=== PATIENT | male | born 1955 | race Hispanic/Latino ===

== ENCOUNTER 2018-01-29 08:30 | Outpatient (CLI) | payer MEDICARE ==
[2018-01-29] MEDS ORDERED: THERMAZENE 50 GRAM TP ONE (09:01)
[2018-01-29] MEDS ORDERED: XYLOCAINE TOPICAL 4% TP ONE ×2 (09:01→09:04)
[2018-01-29] MEDS ORDERED: SILVER NITRATE TP ONE (09:35)
== END 2018-01-29 08:31 | disposition home or self-care (01) ==
LOC: WOUND 08:30
PROVIDERS: ATTEND Nurse Practitioner
DX: I70.234 Atherosclerosis of native arteries of right leg with ulceration of heel and midfoot (principal); L97.412 Non-pressure chronic ulcer of right heel and midfoot with fat layer exposed; L97.311 Non-pressure chronic ulcer of right ankle limited to breakdown of skin; L89.321 Pressure ulcer of left buttock, stage 1; L89.152 Pressure ulcer of sacral region, stage 2; E78.5 Hyperlipidemia, unspecified; I73.9 Peripheral vascular disease, unspecified; I10 Essential (primary) hypertension; F17.200 Nicotine dependence, unspecified, uncomplicated; Z86.73 Personal history of transient ischemic attack (TIA), and cerebral infarction without residual deficits; Z95.0 Presence of cardiac pacemaker; Z89.422 Acquired absence of other left toe(s)
CPT/HCPCS: 11042; G0463

== ENCOUNTER 2018-02-05 09:36 | Outpatient (CLI) | payer MEDICARE ==
[2018-02-05] MEDS ORDERED: XYLOCAINE TOPICAL 4% TP ONE (10:13)
[2018-02-05] MEDS ORDERED: SILVER NITRATE TP ONE ×4 (11:23→11:26)
== END 2018-02-05 09:37 | disposition home or self-care (01) ==
LOC: WOUND 09:36
PROVIDERS: ATTEND Nurse Practitioner
DX: I70.234 Atherosclerosis of native arteries of right leg with ulceration of heel and midfoot (principal); L97.412 Non-pressure chronic ulcer of right heel and midfoot with fat layer exposed; L97.311 Non-pressure chronic ulcer of right ankle limited to breakdown of skin; L89.322 Pressure ulcer of left buttock, stage 2; L89.152 Pressure ulcer of sacral region, stage 2; I87.2 Venous insufficiency (chronic) (peripheral); I10 Essential (primary) hypertension; I73.9 Peripheral vascular disease, unspecified; E78.5 Hyperlipidemia, unspecified; F17.200 Nicotine dependence, unspecified, uncomplicated; Z89.512 Acquired absence of left leg below knee; Z86.73 Personal history of transient ischemic attack (TIA), and cerebral infarction without residual deficits; Z95.0 Presence of cardiac pacemaker
CPT/HCPCS: 17250

== ENCOUNTER 2018-02-12 07:55 | Outpatient (CLI) | payer MEDICARE ==
[2018-02-12] MEDS ORDERED: XYLOCAINE TOPICAL 4% TP ONE (08:12)
== END 2018-02-12 07:56 | disposition home or self-care (01) ==
LOC: WOUND 07:55
PROVIDERS: ATTEND Nurse Practitioner
DX: I70.234 Atherosclerosis of native arteries of right leg with ulceration of heel and midfoot (principal); L97.412 Non-pressure chronic ulcer of right heel and midfoot with fat layer exposed; L97.311 Non-pressure chronic ulcer of right ankle limited to breakdown of skin; L89.322 Pressure ulcer of left buttock, stage 2; L89.152 Pressure ulcer of sacral region, stage 2; I87.2 Venous insufficiency (chronic) (peripheral); I10 Essential (primary) hypertension; E78.5 Hyperlipidemia, unspecified; F17.200 Nicotine dependence, unspecified, uncomplicated; Z89.512 Acquired absence of left leg below knee; Z86.73 Personal history of transient ischemic attack (TIA), and cerebral infarction without residual deficits; Z95.0 Presence of cardiac pacemaker

== ENCOUNTER 2018-02-19 08:36 | Outpatient (CLI) | payer MEDICARE ==
[2018-02-19] MEDS ORDERED: XYLOCAINE TOPICAL 4% TP ONE (08:50)
== END 2018-02-19 08:37 | disposition home or self-care (01) ==
LOC: WOUND 08:36
PROVIDERS: ATTEND Nurse Practitioner
DX: I70.234 Atherosclerosis of native arteries of right leg with ulceration of heel and midfoot (principal); L97.412 Non-pressure chronic ulcer of right heel and midfoot with fat layer exposed; L97.311 Non-pressure chronic ulcer of right ankle limited to breakdown of skin; L89.322 Pressure ulcer of left buttock, stage 2; L89.152 Pressure ulcer of sacral region, stage 2; I87.2 Venous insufficiency (chronic) (peripheral); I10 Essential (primary) hypertension; E78.5 Hyperlipidemia, unspecified; F17.200 Nicotine dependence, unspecified, uncomplicated; Z89.512 Acquired absence of left leg below knee; Z86.73 Personal history of transient ischemic attack (TIA), and cerebral infarction without residual deficits; Z95.0 Presence of cardiac pacemaker

== ENCOUNTER 2018-03-05 08:18 | Outpatient (CLI) | payer MEDICARE ==
[2018-03-05] MEDS ORDERED: XYLOCAINE TOPICAL 4% TP ONE ×2 (08:39→08:40)
[2018-03-05] MEDS ORDERED: SILVER NITRATE TP ONE ×2 (09:12→09:14)
== END 2018-03-05 08:19 | disposition home or self-care (01) ==
LOC: WOUND 08:18
PROVIDERS: ATTEND Nurse Practitioner
DX: I70.234 Atherosclerosis of native arteries of right leg with ulceration of heel and midfoot (principal); L97.412 Non-pressure chronic ulcer of right heel and midfoot with fat layer exposed; L89.152 Pressure ulcer of sacral region, stage 2; L97.311 Non-pressure chronic ulcer of right ankle limited to breakdown of skin; I10 Essential (primary) hypertension; I73.9 Peripheral vascular disease, unspecified; E78.5 Hyperlipidemia, unspecified; F17.200 Nicotine dependence, unspecified, uncomplicated; Z86.73 Personal history of transient ischemic attack (TIA), and cerebral infarction without residual deficits; Z89.512 Acquired absence of left leg below knee; Z95.0 Presence of cardiac pacemaker; Z89.429 Acquired absence of other toe(s), unspecified side
CPT/HCPCS: 17250

== ENCOUNTER 2018-03-12 08:06 | Outpatient (CLI) | payer MEDICARE ==
[2018-03-12] MEDS ORDERED: XYLOCAINE TOPICAL 4% TP ONE (08:26)
== END 2018-03-12 08:07 | disposition home or self-care (01) ==
LOC: WOUND 08:06
PROVIDERS: ATTEND Nurse Practitioner
DX: I70.234 Atherosclerosis of native arteries of right leg with ulceration of heel and midfoot (principal); L97.412 Non-pressure chronic ulcer of right heel and midfoot with fat layer exposed; L89.152 Pressure ulcer of sacral region, stage 2; L97.311 Non-pressure chronic ulcer of right ankle limited to breakdown of skin; L97.211 Non-pressure chronic ulcer of right calf limited to breakdown of skin; I10 Essential (primary) hypertension; I73.9 Peripheral vascular disease, unspecified; E78.5 Hyperlipidemia, unspecified; F17.200 Nicotine dependence, unspecified, uncomplicated; Z89.512 Acquired absence of left leg below knee; Z95.0 Presence of cardiac pacemaker; Z89.429 Acquired absence of other toe(s), unspecified side

== ENCOUNTER 2018-03-19 08:09 | Outpatient (CLI) | payer MEDICARE ==
[2018-03-19] MEDS ORDERED: XYLOCAINE TOPICAL 4% TP ONE ×2 (08:21→09:03)
== END 2018-03-19 08:10 | disposition home or self-care (01) ==
LOC: WOUND 08:09
PROVIDERS: ATTEND Surgery
DX: I70.234 Atherosclerosis of native arteries of right leg with ulceration of heel and midfoot (principal); L97.412 Non-pressure chronic ulcer of right heel and midfoot with fat layer exposed; L97.311 Non-pressure chronic ulcer of right ankle limited to breakdown of skin; L97.211 Non-pressure chronic ulcer of right calf limited to breakdown of skin; I10 Essential (primary) hypertension; E78.5 Hyperlipidemia, unspecified; F17.200 Nicotine dependence, unspecified, uncomplicated; Z89.512 Acquired absence of left leg below knee; Z95.0 Presence of cardiac pacemaker; Z89.429 Acquired absence of other toe(s), unspecified side

== ENCOUNTER 2018-03-26 08:39 | Outpatient (CLI) | payer MEDICARE ==
[2018-03-26] MEDS ORDERED: XYLOCAINE TOPICAL 4% TP ONE ×2 (09:04→10:01)
[2018-03-26] MEDS ORDERED: SILVER NITRATE TP ONE ×2 (09:35→16:06)
== END 2018-03-26 08:40 | disposition home or self-care (01) ==
LOC: WOUND 08:39
PROVIDERS: ATTEND Nurse Practitioner
DX: I70.234 Atherosclerosis of native arteries of right leg with ulceration of heel and midfoot (principal); L97.412 Non-pressure chronic ulcer of right heel and midfoot with fat layer exposed; L97.311 Non-pressure chronic ulcer of right ankle limited to breakdown of skin; L89.152 Pressure ulcer of sacral region, stage 2; S81.801D Unspecified open wound, right lower leg, subsequent encounter; I10 Essential (primary) hypertension; E78.5 Hyperlipidemia, unspecified; F17.200 Nicotine dependence, unspecified, uncomplicated; Z89.512 Acquired absence of left leg below knee; Z95.0 Presence of cardiac pacemaker; Z89.429 Acquired absence of other toe(s), unspecified side; X58.XXXD Exposure to other specified factors, subsequent encounter
CPT/HCPCS: 17250; 87075; 87116

== ENCOUNTER 2018-04-02 08:03 | Outpatient (CLI) | payer MEDICARE ==
[2018-04-02] MEDS ORDERED: XYLOCAINE TOPICAL 4% TP ONE ×2 (08:25)
== END 2018-04-02 08:04 | disposition home or self-care (01) ==
LOC: WOUND 08:03
PROVIDERS: ATTEND Surgery
DX: I70.234 Atherosclerosis of native arteries of right leg with ulceration of heel and midfoot (principal); L97.412 Non-pressure chronic ulcer of right heel and midfoot with fat layer exposed; L97.311 Non-pressure chronic ulcer of right ankle limited to breakdown of skin; L98.491 Non-pressure chronic ulcer of skin of other sites limited to breakdown of skin; L89.152 Pressure ulcer of sacral region, stage 2; R23.8 Other skin changes; I87.2 Venous insufficiency (chronic) (peripheral); I10 Essential (primary) hypertension; I73.9 Peripheral vascular disease, unspecified; F17.200 Nicotine dependence, unspecified, uncomplicated; E78.5 Hyperlipidemia, unspecified; Z86.73 Personal history of transient ischemic attack (TIA), and cerebral infarction without residual deficits; Z89.512 Acquired absence of left leg below knee; Z95.0 Presence of cardiac pacemaker; Z89.429 Acquired absence of other toe(s), unspecified side

== ENCOUNTER 2018-04-09 08:33 | Outpatient (CLI) | payer MEDICARE ==
[2018-04-09] MEDS ORDERED: XYLOCAINE TOPICAL 4% TP ONE (09:37)
== END 2018-04-09 08:34 | disposition home or self-care (01) ==
LOC: WOUND 08:33
PROVIDERS: ATTEND Surgery
DX: I70.234 Atherosclerosis of native arteries of right leg with ulceration of heel and midfoot (principal); L89.152 Pressure ulcer of sacral region, stage 2; L97.311 Non-pressure chronic ulcer of right ankle limited to breakdown of skin; L97.412 Non-pressure chronic ulcer of right heel and midfoot with fat layer exposed; R23.8 Other skin changes; I87.2 Venous insufficiency (chronic) (peripheral); I73.9 Peripheral vascular disease, unspecified; E78.5 Hyperlipidemia, unspecified; F17.200 Nicotine dependence, unspecified, uncomplicated; Z89.512 Acquired absence of left leg below knee; Z86.73 Personal history of transient ischemic attack (TIA), and cerebral infarction without residual deficits; Z95.0 Presence of cardiac pacemaker; Z89.429 Acquired absence of other toe(s), unspecified side

== ENCOUNTER 2018-04-16 08:34 | Outpatient (CLI) | payer MEDICARE ==
[2018-04-16] MEDS ORDERED: XYLOCAINE TOPICAL 4% TP ONE ×2 (08:55→09:25)
== END 2018-04-16 08:35 | disposition home or self-care (01) ==
LOC: WOUND 08:34
PROVIDERS: ATTEND Surgery
DX: I70.234 Atherosclerosis of native arteries of right leg with ulceration of heel and midfoot (principal); L97.311 Non-pressure chronic ulcer of right ankle limited to breakdown of skin; L97.412 Non-pressure chronic ulcer of right heel and midfoot with fat layer exposed; L89.152 Pressure ulcer of sacral region, stage 2; I87.2 Venous insufficiency (chronic) (peripheral); E78.5 Hyperlipidemia, unspecified; R23.8 Other skin changes; F17.200 Nicotine dependence, unspecified, uncomplicated; Z89.512 Acquired absence of left leg below knee; Z86.73 Personal history of transient ischemic attack (TIA), and cerebral infarction without residual deficits; Z95.0 Presence of cardiac pacemaker; Z89.429 Acquired absence of other toe(s), unspecified side

== ENCOUNTER 2018-04-23 08:03 | Outpatient (CLI) | payer MEDICARE ==
[2018-04-23] MEDS ORDERED: XYLOCAINE TOPICAL 4% TP ONE ×2 (08:15→08:40)
== END 2018-04-23 08:04 | disposition home or self-care (01) ==
LOC: WOUND 08:03
PROVIDERS: ATTEND Surgery
DX: I70.234 Atherosclerosis of native arteries of right leg with ulceration of heel and midfoot (principal); L97.412 Non-pressure chronic ulcer of right heel and midfoot with fat layer exposed; L97.311 Non-pressure chronic ulcer of right ankle limited to breakdown of skin; L89.329 Pressure ulcer of left buttock, unspecified stage; I10 Essential (primary) hypertension; I87.2 Venous insufficiency (chronic) (peripheral); I73.9 Peripheral vascular disease, unspecified; E78.5 Hyperlipidemia, unspecified; F17.200 Nicotine dependence, unspecified, uncomplicated; Z89.512 Acquired absence of left leg below knee; Z95.0 Presence of cardiac pacemaker; Z89.429 Acquired absence of other toe(s), unspecified side; Z86.73 Personal history of transient ischemic attack (TIA), and cerebral infarction without residual deficits

== ENCOUNTER 2018-05-07 08:23 | Outpatient (CLI) | payer MEDICARE ==
[2018-05-07] MEDS ORDERED: XYLOCAINE TOPICAL 4% TP ONE ×2 (08:28→09:38)
== END 2018-05-07 08:24 | disposition home or self-care (01) ==
LOC: WOUND 08:23
PROVIDERS: ATTEND Surgery
DX: I70.234 Atherosclerosis of native arteries of right leg with ulceration of heel and midfoot (principal); L97.412 Non-pressure chronic ulcer of right heel and midfoot with fat layer exposed; L97.311 Non-pressure chronic ulcer of right ankle limited to breakdown of skin; L89.329 Pressure ulcer of left buttock, unspecified stage; I10 Essential (primary) hypertension; I87.2 Venous insufficiency (chronic) (peripheral); I73.9 Peripheral vascular disease, unspecified; E78.5 Hyperlipidemia, unspecified; F17.200 Nicotine dependence, unspecified, uncomplicated; Z89.512 Acquired absence of left leg below knee; Z95.0 Presence of cardiac pacemaker; Z89.429 Acquired absence of other toe(s), unspecified side; Z86.73 Personal history of transient ischemic attack (TIA), and cerebral infarction without residual deficits
CPT/HCPCS: 97597

== ENCOUNTER 2018-05-14 08:35 | Outpatient (CLI) | payer MEDICARE ==
[2018-05-14] MEDS ORDERED: XYLOCAINE TOPICAL 4% TP ONE ×2 (08:40→09:00)
[2018-05-14] MEDS ORDERED: THERMAZENE 50 GRAM TP ONE (09:14)
[2018-05-14] MEDS ORDERED: THERMAZENE 50 GRAM TP SCH (10:00)
== END 2018-05-14 08:36 | disposition home or self-care (01) ==
LOC: WOUND 08:35
PROVIDERS: ATTEND Surgery
DX: I70.234 Atherosclerosis of native arteries of right leg with ulceration of heel and midfoot (principal); L97.412 Non-pressure chronic ulcer of right heel and midfoot with fat layer exposed; L89.309 Pressure ulcer of unspecified buttock, unspecified stage; I10 Essential (primary) hypertension; I73.9 Peripheral vascular disease, unspecified; E78.5 Hyperlipidemia, unspecified; F17.200 Nicotine dependence, unspecified, uncomplicated; Z86.73 Personal history of transient ischemic attack (TIA), and cerebral infarction without residual deficits; Z89.512 Acquired absence of left leg below knee; Z95.0 Presence of cardiac pacemaker; Z89.429 Acquired absence of other toe(s), unspecified side

== ENCOUNTER 2018-05-21 08:07 | Outpatient (CLI) | payer MEDICARE ==
[2018-05-21] MEDS ORDERED: XYLOCAINE TOPICAL 4% TP ONE ×2 (08:08→08:47)
[2018-05-21] MEDS ORDERED: SODIUM CHLORIDE FLUSH SYRINGE 10 ML IV ONE (08:55)
[2018-05-21] MEDS ORDERED: AD OINTMENT TP ONE (08:59)
[2018-05-21] MEDS ORDERED: THERMAZENE 50 GRAM TP ONE (09:00)
[2018-05-21] MEDS ORDERED: AD OINTMENT TP PRN (10:18)
[2018-05-21] MEDS ORDERED: THERMAZENE 50 GRAM TP SCH (11:00)
== END 2018-05-21 08:08 | disposition home or self-care (01) ==
LOC: WOUND 08:07
PROVIDERS: ATTEND Surgery
DX: I70.234 Atherosclerosis of native arteries of right leg with ulceration of heel and midfoot (principal); L97.412 Non-pressure chronic ulcer of right heel and midfoot with fat layer exposed; L97.312 Non-pressure chronic ulcer of right ankle with fat layer exposed; I87.2 Venous insufficiency (chronic) (peripheral); I10 Essential (primary) hypertension; I73.9 Peripheral vascular disease, unspecified; E78.5 Hyperlipidemia, unspecified; F17.200 Nicotine dependence, unspecified, uncomplicated; Z86.73 Personal history of transient ischemic attack (TIA), and cerebral infarction without residual deficits; Z89.512 Acquired absence of left leg below knee; Z95.0 Presence of cardiac pacemaker; Z89.429 Acquired absence of other toe(s), unspecified side
CPT/HCPCS: 11042; 15271; 29581; Q4158; 15275; A6250

== ENCOUNTER 2018-05-28 08:03 | Outpatient (CLI) | payer MEDICARE ==
[2018-05-28] MEDS ORDERED: XYLOCAINE TOPICAL 4% TP ONE ×2 (08:21→08:54)
[2018-05-28] MEDS ORDERED: THERMAZENE 50 GRAM TP ONE (09:21)
[2018-05-29] MEDS ORDERED: THERMAZENE 50 GRAM TP SCH (22:00)
== END 2018-05-28 08:04 | disposition home or self-care (01) ==
LOC: WOUND 08:03
PROVIDERS: ATTEND Surgery
DX: I70.234 Atherosclerosis of native arteries of right leg with ulceration of heel and midfoot (principal); L97.412 Non-pressure chronic ulcer of right heel and midfoot with fat layer exposed; L97.312 Non-pressure chronic ulcer of right ankle with fat layer exposed; I87.2 Venous insufficiency (chronic) (peripheral); I10 Essential (primary) hypertension; I73.9 Peripheral vascular disease, unspecified; E78.5 Hyperlipidemia, unspecified; F17.200 Nicotine dependence, unspecified, uncomplicated; Z86.73 Personal history of transient ischemic attack (TIA), and cerebral infarction without residual deficits; Z89.512 Acquired absence of left leg below knee; Z95.0 Presence of cardiac pacemaker; Z89.429 Acquired absence of other toe(s), unspecified side

== ENCOUNTER 2018-06-04 08:10 | Outpatient (CLI) | payer MEDICARE ==
[2018-06-04] MEDS ORDERED: XYLOCAINE TOPICAL 4% TP ONE ×2 (08:14→11:42)
[2018-06-04] MEDS ORDERED: SODIUM CHLORIDE FLUSH SYRINGE 10 ML IV ONE (09:16)
[2018-06-04] MEDS ORDERED: THERMAZENE 50 GRAM TP ONE (09:42)
[2018-06-04] MEDS ORDERED: THERMAZENE 50 GRAM TP SCH (12:00)
[2018-06-05] MEDS ORDERED: SODIUM CHLORIDE FLUSH SYRINGE 10 ML IV ONE (17:05)
[2018-06-06] MEDS ORDERED: THERMAZENE 50 GRAM TP SCH (10:00)
== END 2018-06-04 08:11 | disposition home or self-care (01) ==
LOC: WOUND 08:10
PROVIDERS: ATTEND Surgery
DX: I70.234 Atherosclerosis of native arteries of right leg with ulceration of heel and midfoot (principal); L97.412 Non-pressure chronic ulcer of right heel and midfoot with fat layer exposed; L97.312 Non-pressure chronic ulcer of right ankle with fat layer exposed; L89.152 Pressure ulcer of sacral region, stage 2; S31.829D Unspecified open wound of left buttock, subsequent encounter; S31.819D Unspecified open wound of right buttock, subsequent encounter; I87.2 Venous insufficiency (chronic) (peripheral); R23.8 Other skin changes; I10 Essential (primary) hypertension; I73.9 Peripheral vascular disease, unspecified; E78.5 Hyperlipidemia, unspecified; F17.200 Nicotine dependence, unspecified, uncomplicated; Z89.512 Acquired absence of left leg below knee; Z86.73 Personal history of transient ischemic attack (TIA), and cerebral infarction without residual deficits; Z95.0 Presence of cardiac pacemaker; X58.XXXD Exposure to other specified factors, subsequent encounter
CPT/HCPCS: 11042; 15271; Q4158; 15275

== ENCOUNTER 2018-06-11 08:03 | Outpatient (CLI) | payer MEDICARE ==
[2018-06-11] MEDS ORDERED: XYLOCAINE TOPICAL 4% TP ONE ×2 (08:07→08:46)
[2018-06-11] MEDS ORDERED: THERMAZENE 50 GRAM TP ONE (08:49)
[2018-06-11] MEDS ORDERED: SODIUM CHLORIDE FLUSH SYRINGE 10 ML IV ONE (08:49)
[2018-06-11] MEDS ORDERED: THERMAZENE 50 GRAM TP SCH (10:00)
== END 2018-06-11 08:04 | disposition home or self-care (01) ==
LOC: WOUND 08:03
PROVIDERS: ATTEND Surgery
DX: I70.234 Atherosclerosis of native arteries of right leg with ulceration of heel and midfoot (principal); L97.412 Non-pressure chronic ulcer of right heel and midfoot with fat layer exposed; L97.312 Non-pressure chronic ulcer of right ankle with fat layer exposed; L89.152 Pressure ulcer of sacral region, stage 2; S31.829D Unspecified open wound of left buttock, subsequent encounter; S31.819D Unspecified open wound of right buttock, subsequent encounter; I87.2 Venous insufficiency (chronic) (peripheral); R23.8 Other skin changes; I10 Essential (primary) hypertension; I73.9 Peripheral vascular disease, unspecified; E78.5 Hyperlipidemia, unspecified; F17.200 Nicotine dependence, unspecified, uncomplicated; Z89.512 Acquired absence of left leg below knee; Z86.73 Personal history of transient ischemic attack (TIA), and cerebral infarction without residual deficits; Z95.0 Presence of cardiac pacemaker; X58.XXXD Exposure to other specified factors, subsequent encounter

== ENCOUNTER 2018-06-25 08:04 | Outpatient (CLI) | payer MEDICARE ==
[~2018-06-25 08:04] MED LIST: THERMAZENE 50 GRAM TP ONE; XYLOCAINE TOPICAL 4% TP ONE
[2018-06-25] MEDS ORDERED: XYLOCAINE TOPICAL 4% TP ONE (10:16)
[2018-06-25] MEDS ORDERED: THERMAZENE 50 GRAM TP SCH (22:00)
== END 2018-06-25 08:05 | disposition home or self-care (01) ==
LOC: WOUND 08:04
PROVIDERS: ATTEND Surgery
DX: I70.234 Atherosclerosis of native arteries of right leg with ulceration of heel and midfoot (principal); L97.412 Non-pressure chronic ulcer of right heel and midfoot with fat layer exposed; L97.312 Non-pressure chronic ulcer of right ankle with fat layer exposed; L89.152 Pressure ulcer of sacral region, stage 2; S31.829D Unspecified open wound of left buttock, subsequent encounter; S31.819D Unspecified open wound of right buttock, subsequent encounter; I87.2 Venous insufficiency (chronic) (peripheral); R23.8 Other skin changes; I10 Essential (primary) hypertension; I73.9 Peripheral vascular disease, unspecified; E78.5 Hyperlipidemia, unspecified; F17.200 Nicotine dependence, unspecified, uncomplicated; Z89.512 Acquired absence of left leg below knee; Z86.73 Personal history of transient ischemic attack (TIA), and cerebral infarction without residual deficits; Z95.0 Presence of cardiac pacemaker; X58.XXXD Exposure to other specified factors, subsequent encounter
CPT/HCPCS: 29580

== ENCOUNTER 2018-07-02 08:02 | Outpatient (CLI) | payer MEDICARE ==
[2018-07-02] MEDS ORDERED: XYLOCAINE TOPICAL 4% TP ONE ×2 (08:08→09:39)
[2018-07-02] MEDS ORDERED: SODIUM CHLORIDE FLUSH SYRINGE 10 ML IV ONE (08:46)
[2018-07-02] MEDS ORDERED: THERMAZENE 50 GRAM TP ONE (08:47)
[2018-07-02] MEDS ORDERED: THERMAZENE 50 GRAM TP SCH (10:00)
[2018-07-02] MEDS ORDERED: SODIUM CHLORIDE FLUSH SYRINGE 10 ML IV SCH (10:00)
== END 2018-07-02 08:03 | disposition home or self-care (01) ==
LOC: WOUND 08:02
PROVIDERS: ATTEND Surgery
DX: I70.234 Atherosclerosis of native arteries of right leg with ulceration of heel and midfoot (principal); L97.412 Non-pressure chronic ulcer of right heel and midfoot with fat layer exposed; L97.312 Non-pressure chronic ulcer of right ankle with fat layer exposed; S31.829D Unspecified open wound of left buttock, subsequent encounter; S31.819D Unspecified open wound of right buttock, subsequent encounter; I87.2 Venous insufficiency (chronic) (peripheral); R23.8 Other skin changes; I10 Essential (primary) hypertension; I73.9 Peripheral vascular disease, unspecified; E78.5 Hyperlipidemia, unspecified; F17.200 Nicotine dependence, unspecified, uncomplicated; Z89.512 Acquired absence of left leg below knee; Z86.73 Personal history of transient ischemic attack (TIA), and cerebral infarction without residual deficits; Z95.0 Presence of cardiac pacemaker; X58.XXXD Exposure to other specified factors, subsequent encounter
CPT/HCPCS: 15271; Q4158

== ENCOUNTER 2018-08-06 08:11 | Outpatient (CLI) | payer MEDICARE ==
[~2018-08-06 08:11] MED LIST changes: +SODIUM CHLORIDE FLUSH SYRINGE 10 ML IV ONE; -THERMAZENE 50 GRAM TP ONE
[2018-08-06] MEDS ORDERED: XYLOCAINE TOPICAL 4% TP ONE (08:18)
[2018-08-06] MEDS ORDERED: SODIUM CHLORIDE FLUSH SYRINGE 10 ML IV ONE (14:21)
== END 2018-08-06 08:12 | disposition home or self-care (01) ==
LOC: WOUND 08:11
PROVIDERS: ATTEND Surgery
DX: I70.234 Atherosclerosis of native arteries of right leg with ulceration of heel and midfoot (principal); L97.312 Non-pressure chronic ulcer of right ankle with fat layer exposed; L97.412 Non-pressure chronic ulcer of right heel and midfoot with fat layer exposed; S31.829D Unspecified open wound of left buttock, subsequent encounter; S31.819D Unspecified open wound of right buttock, subsequent encounter; I87.2 Venous insufficiency (chronic) (peripheral); R23.8 Other skin changes; I10 Essential (primary) hypertension; I73.9 Peripheral vascular disease, unspecified; E78.5 Hyperlipidemia, unspecified; F17.200 Nicotine dependence, unspecified, uncomplicated; Z89.512 Acquired absence of left leg below knee; Z86.73 Personal history of transient ischemic attack (TIA), and cerebral infarction without residual deficits; Z95.0 Presence of cardiac pacemaker; X58.XXXD Exposure to other specified factors, subsequent encounter
CPT/HCPCS: 15271; 15272; 29580; Q4158

== ENCOUNTER 2018-08-27 08:00 | Outpatient (CLI) | payer MEDICARE ==
[2018-08-27] MEDS ORDERED: XYLOCAINE TOPICAL 4% TP ONE ×2 (08:11→15:19)
[2018-08-27] MEDS ORDERED: SODIUM CHLORIDE FLUSH SYRINGE 10 ML IV ONE ×2 (08:14→15:19)
== END 2018-08-27 08:01 | disposition home or self-care (01) ==
LOC: WOUND 08:00
PROVIDERS: ATTEND Surgery
DX: I70.235 Atherosclerosis of native arteries of right leg with ulceration of other part of foot (principal); L97.312 Non-pressure chronic ulcer of right ankle with fat layer exposed; L97.412 Non-pressure chronic ulcer of right heel and midfoot with fat layer exposed; S31.829D Unspecified open wound of left buttock, subsequent encounter; S31.819D Unspecified open wound of right buttock, subsequent encounter; I87.2 Venous insufficiency (chronic) (peripheral); R23.8 Other skin changes; I10 Essential (primary) hypertension; I73.9 Peripheral vascular disease, unspecified; E78.5 Hyperlipidemia, unspecified; F17.200 Nicotine dependence, unspecified, uncomplicated; Z89.512 Acquired absence of left leg below knee; Z86.73 Personal history of transient ischemic attack (TIA), and cerebral infarction without residual deficits; Z95.0 Presence of cardiac pacemaker; X58.XXXD Exposure to other specified factors, subsequent encounter
CPT/HCPCS: 15275; Q4158

== ENCOUNTER 2018-10-28 08:07 | Outpatient (CLI) | payer MEDICARE ==
[2018-10-28] MEDS ORDERED: XYLOCAINE TOPICAL 4% TP ONE (08:08)
== END 2018-10-28 08:08 | disposition home or self-care (01) ==
LOC: WOUND 08:07
PROVIDERS: ATTEND Surgery
DX: I70.234 Atherosclerosis of native arteries of right leg with ulceration of heel and midfoot (principal); L97.412 Non-pressure chronic ulcer of right heel and midfoot with fat layer exposed; L89.891 Pressure ulcer of other site, stage 1; L97.311 Non-pressure chronic ulcer of right ankle limited to breakdown of skin; L89.152 Pressure ulcer of sacral region, stage 2; I10 Essential (primary) hypertension; E78.5 Hyperlipidemia, unspecified; Z86.73 Personal history of transient ischemic attack (TIA), and cerebral infarction without residual deficits; F17.200 Nicotine dependence, unspecified, uncomplicated
CPT/HCPCS: 29580

== ENCOUNTER 2018-11-18 07:59 | Outpatient (CLI) | payer MEDICARE ==
[2018-11-18] MEDS ORDERED: XYLOCAINE TOPICAL 4% TP ONE (08:07)
== END 2018-11-18 08:00 | disposition home or self-care (01) ==
LOC: WOUND 07:59
PROVIDERS: ATTEND Surgery
DX: I70.234 Atherosclerosis of native arteries of right leg with ulceration of heel and midfoot (principal); L89.152 Pressure ulcer of sacral region, stage 2; L97.412 Non-pressure chronic ulcer of right heel and midfoot with fat layer exposed; L89.891 Pressure ulcer of other site, stage 1; L97.811 Non-pressure chronic ulcer of other part of right lower leg limited to breakdown of skin; I10 Essential (primary) hypertension; E78.5 Hyperlipidemia, unspecified; F17.200 Nicotine dependence, unspecified, uncomplicated; Z86.73 Personal history of transient ischemic attack (TIA), and cerebral infarction without residual deficits
CPT/HCPCS: 29580

== ENCOUNTER 2018-11-25 07:53 | Outpatient (CLI) | payer MEDICARE ==
[2018-11-25] MEDS ORDERED: XYLOCAINE TOPICAL 4% TP ONE (07:59)
== END 2018-11-25 07:54 | disposition home or self-care (01) ==
LOC: WOUND 07:53
PROVIDERS: ATTEND Surgery
DX: I70.234 Atherosclerosis of native arteries of right leg with ulceration of heel and midfoot (principal); L89.891 Pressure ulcer of other site, stage 1; L97.412 Non-pressure chronic ulcer of right heel and midfoot with fat layer exposed; L97.312 Non-pressure chronic ulcer of right ankle with fat layer exposed; L97.811 Non-pressure chronic ulcer of other part of right lower leg limited to breakdown of skin; L89.152 Pressure ulcer of sacral region, stage 2; I87.8 Other specified disorders of veins; I10 Essential (primary) hypertension; E78.5 Hyperlipidemia, unspecified; Z86.73 Personal history of transient ischemic attack (TIA), and cerebral infarction without residual deficits
CPT/HCPCS: 29580

== ENCOUNTER 2018-12-02 07:52 | Outpatient (CLI) | payer MEDICARE ==
[2018-12-02] MEDS ORDERED: XYLOCAINE TOPICAL 2% 30ML TP ONE (07:58)
== END 2018-12-02 07:53 | disposition home or self-care (01) ==
LOC: WOUND 07:52
PROVIDERS: ATTEND Surgery
DX: I70.234 Atherosclerosis of native arteries of right leg with ulceration of heel and midfoot (principal); L89.891 Pressure ulcer of other site, stage 1; L97.412 Non-pressure chronic ulcer of right heel and midfoot with fat layer exposed; L89.152 Pressure ulcer of sacral region, stage 2; L97.312 Non-pressure chronic ulcer of right ankle with fat layer exposed; L97.811 Non-pressure chronic ulcer of other part of right lower leg limited to breakdown of skin; I87.8 Other specified disorders of veins; I10 Essential (primary) hypertension; E78.5 Hyperlipidemia, unspecified; Z86.73 Personal history of transient ischemic attack (TIA), and cerebral infarction without residual deficits; F17.200 Nicotine dependence, unspecified, uncomplicated
CPT/HCPCS: 29580

== ENCOUNTER 2018-12-09 07:50 | Outpatient (CLI) | payer MEDICARE ==
[2018-12-09] MEDS ORDERED: XYLOCAINE TOPICAL 4% TP ONE (08:03)
[2018-12-09] MEDS ORDERED: SILVER NITRATE TP ONE (08:04)
== END 2018-12-09 07:51 | disposition home or self-care (01) ==
LOC: WOUND 07:50
PROVIDERS: ATTEND Surgery
DX: I70.234 Atherosclerosis of native arteries of right leg with ulceration of heel and midfoot (principal); L89.891 Pressure ulcer of other site, stage 1; L89.152 Pressure ulcer of sacral region, stage 2; L97.312 Non-pressure chronic ulcer of right ankle with fat layer exposed; L97.812 Non-pressure chronic ulcer of other part of right lower leg with fat layer exposed; I87.8 Other specified disorders of veins; I10 Essential (primary) hypertension; E78.5 Hyperlipidemia, unspecified; F17.200 Nicotine dependence, unspecified, uncomplicated; Z86.73 Personal history of transient ischemic attack (TIA), and cerebral infarction without residual deficits

== ENCOUNTER 2018-12-16 08:12 | Outpatient (CLI) | payer MEDICARE | END 2018-12-16 08:13 | disposition home or self-care (01) | LOC: WOUND 08:12 | CPT/HCPCS: 29580 ==

== ENCOUNTER 2018-12-30 08:05 | Outpatient (CLI) | payer MEDICARE ==
[2018-12-30] MEDS ORDERED: XYLOCAINE TOPICAL 2% 30ML TP ONE (08:06)
[2018-12-30] MEDS ORDERED: SILVER NITRATE TP ONE (08:06)
== END 2018-12-30 08:06 | disposition home or self-care (01) ==
LOC: WOUND 08:05
PROVIDERS: ATTEND Surgery
DX: I70.234 Atherosclerosis of native arteries of right leg with ulceration of heel and midfoot (principal); L97.412 Non-pressure chronic ulcer of right heel and midfoot with fat layer exposed; L89.891 Pressure ulcer of other site, stage 1; L89.152 Pressure ulcer of sacral region, stage 2; L97.312 Non-pressure chronic ulcer of right ankle with fat layer exposed; L84 Corns and callosities; I10 Essential (primary) hypertension; E78.5 Hyperlipidemia, unspecified; Z86.73 Personal history of transient ischemic attack (TIA), and cerebral infarction without residual deficits; F17.200 Nicotine dependence, unspecified, uncomplicated
CPT/HCPCS: 29580

== ENCOUNTER 2019-01-06 08:14 | Outpatient (CLI) | payer MEDICARE ==
[2019-01-06] MEDS ORDERED: SILVER NITRATE TP ONE (08:16)
[2019-01-06] MEDS ORDERED: XYLOCAINE TOPICAL 4% TP ONE (08:16)
[2019-01-06] MEDS ORDERED: AD OINTMENT TP PRN (08:17)
== END 2019-01-06 08:15 | disposition home or self-care (01) ==
LOC: WOUND 08:14
PROVIDERS: ATTEND Surgery
DX: I70.234 Atherosclerosis of native arteries of right leg with ulceration of heel and midfoot (principal); L97.412 Non-pressure chronic ulcer of right heel and midfoot with fat layer exposed; L89.891 Pressure ulcer of other site, stage 1; L89.152 Pressure ulcer of sacral region, stage 2; L97.312 Non-pressure chronic ulcer of right ankle with fat layer exposed; L84 Corns and callosities; I10 Essential (primary) hypertension; E78.5 Hyperlipidemia, unspecified; F17.200 Nicotine dependence, unspecified, uncomplicated; Z86.73 Personal history of transient ischemic attack (TIA), and cerebral infarction without residual deficits

== ENCOUNTER 2019-01-13 07:59 | Outpatient (CLI) | payer MEDICARE ==
[2019-01-13] MEDS ORDERED: XYLOCAINE TOPICAL 4% TP ONE (09:00)
[2019-01-13] MEDS ORDERED: SILVER NITRATE TP ONE (09:00)
== END 2019-01-13 08:00 | disposition home or self-care (01) ==
LOC: WOUND 07:59
PROVIDERS: ATTEND Surgery
DX: I70.233 Atherosclerosis of native arteries of right leg with ulceration of ankle (principal); L97.312 Non-pressure chronic ulcer of right ankle with fat layer exposed; L89.152 Pressure ulcer of sacral region, stage 2; I10 Essential (primary) hypertension; E78.5 Hyperlipidemia, unspecified; F17.200 Nicotine dependence, unspecified, uncomplicated; Z86.73 Personal history of transient ischemic attack (TIA), and cerebral infarction without residual deficits
CPT/HCPCS: 29581

== ENCOUNTER 2019-01-20 07:54 | Outpatient (CLI) | payer MEDICARE | END 2019-01-20 07:55 | disposition home or self-care (01) | LOC: WOUND 07:54 ==

== ENCOUNTER 2019-01-27 08:02 | Outpatient (CLI) | payer MEDICARE ==
[2019-01-27] MEDS ORDERED: XYLOCAINE TOPICAL 4% TP ONE (09:00)
== END 2019-01-27 08:03 | disposition home or self-care (01) ==
LOC: WOUND 08:02
PROVIDERS: ATTEND Surgery
DX: I70.234 Atherosclerosis of native arteries of right leg with ulceration of heel and midfoot (principal); L97.412 Non-pressure chronic ulcer of right heel and midfoot with fat layer exposed; L97.312 Non-pressure chronic ulcer of right ankle with fat layer exposed; L89.152 Pressure ulcer of sacral region, stage 2; I10 Essential (primary) hypertension; I87.2 Venous insufficiency (chronic) (peripheral); E78.5 Hyperlipidemia, unspecified; F17.200 Nicotine dependence, unspecified, uncomplicated; Z86.73 Personal history of transient ischemic attack (TIA), and cerebral infarction without residual deficits; Z89.512 Acquired absence of left leg below knee; Z95.0 Presence of cardiac pacemaker

== ENCOUNTER 2019-02-10 07:59 | Outpatient (CLI) | payer MEDICARE ==
[2019-02-10] MEDS ORDERED: SILVER NITRATE TP ONE (09:00)
[2019-02-10] MEDS ORDERED: XYLOCAINE TOPICAL 4% TP ONE (09:00)
== END 2019-02-10 08:00 | disposition home or self-care (01) ==
LOC: WOUND 07:59
PROVIDERS: ATTEND Surgery
DX: I70.234 Atherosclerosis of native arteries of right leg with ulceration of heel and midfoot (principal); L97.412 Non-pressure chronic ulcer of right heel and midfoot with fat layer exposed; L89.152 Pressure ulcer of sacral region, stage 2; I87.8 Other specified disorders of veins; I10 Essential (primary) hypertension; E78.5 Hyperlipidemia, unspecified; Z86.73 Personal history of transient ischemic attack (TIA), and cerebral infarction without residual deficits; Z87.891 Personal history of nicotine dependence; Z89.512 Acquired absence of left leg below knee
CPT/HCPCS: 29581

== ENCOUNTER 2019-02-17 08:06 | Outpatient (CLI) | payer MEDICARE ==
[2019-02-17] MEDS ORDERED: XYLOCAINE TOPICAL 4% TP ONE (08:30)
[2019-02-17] MEDS ORDERED: SILVER NITRATE TP ONE (09:00)
== END 2019-02-17 08:07 | disposition home or self-care (01) ==
LOC: WOUND 08:06
PROVIDERS: ATTEND Surgery
DX: L97.312 Non-pressure chronic ulcer of right ankle with fat layer exposed (principal); L89.152 Pressure ulcer of sacral region, stage 2; L97.812 Non-pressure chronic ulcer of other part of right lower leg with fat layer exposed; I87.8 Other specified disorders of veins; I10 Essential (primary) hypertension; E78.5 Hyperlipidemia, unspecified; F17.200 Nicotine dependence, unspecified, uncomplicated; Z86.73 Personal history of transient ischemic attack (TIA), and cerebral infarction without residual deficits
CPT/HCPCS: 29580

== ENCOUNTER 2019-03-03 08:04 | Outpatient (CLI) | payer MEDICARE | END 2019-03-03 08:05 | disposition home or self-care (01) | LOC: WOUND 08:04 | PROVIDERS: ATTEND Surgery | DX: L97.312 Non-pressure chronic ulcer of right ankle with fat layer exposed (principal); L89.152 Pressure ulcer of sacral region, stage 2; I70.234 Atherosclerosis of native arteries of right leg with ulceration of heel and midfoot; L97.412 Non-pressure chronic ulcer of right heel and midfoot with fat layer exposed; I87.8 Other specified disorders of veins; I10 Essential (primary) hypertension; E78.5 Hyperlipidemia, unspecified; F17.200 Nicotine dependence, unspecified, uncomplicated; Z86.73 Personal history of transient ischemic attack (TIA), and cerebral infarction without residual deficits | CPT/HCPCS: 29581 ==

== ENCOUNTER 2019-03-17 07:58 | Outpatient (CLI) | payer MEDICARE | END 2019-03-17 07:59 | disposition home or self-care (01) | LOC: WOUND 07:58 | PROVIDERS: ATTEND Surgery | DX: L97.312 Non-pressure chronic ulcer of right ankle with fat layer exposed (principal); L89.152 Pressure ulcer of sacral region, stage 2; I70.234 Atherosclerosis of native arteries of right leg with ulceration of heel and midfoot; L97.412 Non-pressure chronic ulcer of right heel and midfoot with fat layer exposed; I87.8 Other specified disorders of veins; I10 Essential (primary) hypertension; E78.5 Hyperlipidemia, unspecified; F17.200 Nicotine dependence, unspecified, uncomplicated; Z86.73 Personal history of transient ischemic attack (TIA), and cerebral infarction without residual deficits | CPT/HCPCS: 29581 ==

== ENCOUNTER 2019-03-24 08:00 | Outpatient (CLI) | payer MEDICARE ==
[2019-03-24] MEDS ORDERED: XYLOCAINE TOPICAL 4% TP NR (08:30)
[2019-03-24] MEDS ORDERED: SILVER NITRATE TP NR (08:30)
== END 2019-03-24 08:01 | disposition home or self-care (01) ==
LOC: WOUND 08:00
PROVIDERS: ATTEND Surgery
DX: L97.312 Non-pressure chronic ulcer of right ankle with fat layer exposed (principal); L89.152 Pressure ulcer of sacral region, stage 2; L97.412 Non-pressure chronic ulcer of right heel and midfoot with fat layer exposed; I70.234 Atherosclerosis of native arteries of right leg with ulceration of heel and midfoot; I87.8 Other specified disorders of veins; I10 Essential (primary) hypertension; I73.9 Peripheral vascular disease, unspecified; E78.5 Hyperlipidemia, unspecified; F17.200 Nicotine dependence, unspecified, uncomplicated; Z86.73 Personal history of transient ischemic attack (TIA), and cerebral infarction without residual deficits
CPT/HCPCS: 29581

== ENCOUNTER 2019-03-31 08:15 | Outpatient (CLI) | payer MEDICARE | END 2019-03-31 08:16 | disposition home or self-care (01) | LOC: WOUND 08:15 | PROVIDERS: ATTEND Surgery | DX: L97.312 Non-pressure chronic ulcer of right ankle with fat layer exposed (principal); L89.152 Pressure ulcer of sacral region, stage 2; I70.234 Atherosclerosis of native arteries of right leg with ulceration of heel and midfoot; L97.412 Non-pressure chronic ulcer of right heel and midfoot with fat layer exposed; I87.8 Other specified disorders of veins; I10 Essential (primary) hypertension; I73.9 Peripheral vascular disease, unspecified; E78.5 Hyperlipidemia, unspecified; F17.200 Nicotine dependence, unspecified, uncomplicated; Z86.73 Personal history of transient ischemic attack (TIA), and cerebral infarction without residual deficits | CPT/HCPCS: 29581 ==

== ENCOUNTER 2019-04-07 08:01 | Outpatient (CLI) | payer MEDICARE ==
[2019-04-07] MEDS ORDERED: SILVER NITRATE TP ONE (08:30)
[2019-04-07] MEDS ORDERED: XYLOCAINE TOPICAL 4% TP ONE (08:30)
== END 2019-04-07 08:02 | disposition home or self-care (01) ==
LOC: WOUND 08:01
PROVIDERS: ATTEND Surgery
DX: L97.312 Non-pressure chronic ulcer of right ankle with fat layer exposed (principal); L89.152 Pressure ulcer of sacral region, stage 2; I70.234 Atherosclerosis of native arteries of right leg with ulceration of heel and midfoot; L97.412 Non-pressure chronic ulcer of right heel and midfoot with fat layer exposed; I87.8 Other specified disorders of veins; I10 Essential (primary) hypertension; I73.9 Peripheral vascular disease, unspecified; E78.5 Hyperlipidemia, unspecified; F17.200 Nicotine dependence, unspecified, uncomplicated; Z86.73 Personal history of transient ischemic attack (TIA), and cerebral infarction without residual deficits
CPT/HCPCS: 29581

== ENCOUNTER 2019-04-14 07:54 | Outpatient (CLI) | payer MEDICARE | END 2019-04-14 07:55 | disposition home or self-care (01) | LOC: WOUND 07:54 | PROVIDERS: ATTEND Surgery | DX: L97.312 Non-pressure chronic ulcer of right ankle with fat layer exposed (principal); L89.152 Pressure ulcer of sacral region, stage 2; I70.234 Atherosclerosis of native arteries of right leg with ulceration of heel and midfoot; L97.412 Non-pressure chronic ulcer of right heel and midfoot with fat layer exposed; I73.9 Peripheral vascular disease, unspecified; I87.8 Other specified disorders of veins; I10 Essential (primary) hypertension | CPT/HCPCS: 29581 ==

== ENCOUNTER 2019-04-28 08:07 | Outpatient (CLI) | payer MEDICARE | END 2019-04-28 08:08 | disposition home or self-care (01) | LOC: WOUND 08:07 | PROVIDERS: ATTEND Surgery | DX: I70.234 Atherosclerosis of native arteries of right leg with ulceration of heel and midfoot (principal); L97.412 Non-pressure chronic ulcer of right heel and midfoot with fat layer exposed; L97.811 Non-pressure chronic ulcer of other part of right lower leg limited to breakdown of skin; L89.152 Pressure ulcer of sacral region, stage 2; I87.8 Other specified disorders of veins; R23.8 Other skin changes; I10 Essential (primary) hypertension; E78.5 Hyperlipidemia, unspecified; F17.200 Nicotine dependence, unspecified, uncomplicated; Z86.73 Personal history of transient ischemic attack (TIA), and cerebral infarction without residual deficits | CPT/HCPCS: 29581 ==

== ENCOUNTER 2019-05-05 08:00 | Outpatient (CLI) | payer MEDICARE | END 2019-05-05 08:01 | disposition home or self-care (01) | LOC: WOUND 08:00 | PROVIDERS: ATTEND Surgery | DX: I70.234 Atherosclerosis of native arteries of right leg with ulceration of heel and midfoot (principal); L97.412 Non-pressure chronic ulcer of right heel and midfoot with fat layer exposed; L97.811 Non-pressure chronic ulcer of other part of right lower leg limited to breakdown of skin; L89.152 Pressure ulcer of sacral region, stage 2; I87.8 Other specified disorders of veins; R23.8 Other skin changes; I10 Essential (primary) hypertension; E78.5 Hyperlipidemia, unspecified; F17.200 Nicotine dependence, unspecified, uncomplicated; Z86.73 Personal history of transient ischemic attack (TIA), and cerebral infarction without residual deficits | CPT/HCPCS: 99213; G0463 ==

== ENCOUNTER 2019-07-25 02:00 | Emergency (ER) | payer MEDICARE ==
[2019-07-25] MEDS ORDERED: NACL 0.9% 500 ML 500 ML IV ONE (02:54)
[2019-07-25] MEDS ORDERED: IMODIUM PO ONE (02:54)
[2019-07-25] MEDS ORDERED: BENTYL IM ONE (02:55)
--- NOTE | 2019-07-25 02:59 | Emergency Department Report ---
ED Abdominal Pain HPI - General Chief Complaint: Abdominal Pain Stated Complaint: ABD PAIN Time Seen by Provider: 07/25/19 02:48 Source: patient, EMS Mode of arrival: Stretcher Limitations: Physical Limitation - History of Present Illness Initial Comments: 64 yo M, hx CVA, pacemaker, anemia, HTN presents to the ED with onset of abdominal pain and diarrhea tonight. Pt states symptoms began at around 6PM. Reports diffuse abdominal pain. Denies nausea, vomiting. MD Complaint: abdominal pain -: This evening Location: diffuse Radiation: none Severity: moderate Severity scale (0 -10): 7 Quality: aching Consistency: constant Improves With: nothing Worsens With: nothing Associated Symptoms: diarrhea. denies: nausea, vomiting - Related Data Home Medications Medication Instructions Recorded Confirmed Last Taken Clopidogrel [Plavix] 75 mg PO QDAY 07/11/13 06/29/16 Unknown Tamsulosin [Flomax] 0.4 mg PO QDAY 03/21/14 06/29/16 Unknown Aspirin [Aspirin BABY CHEW TAB] 81 mg PO QDAY 12/21/15 06/29/16 Unknown Docusate Sodium [Colace CAP] 100 mg PO BID PRN 06/29/16 06/29/16 Unknown Magnesium Hydroxide [Milk of 400 mg PO Q8H 06/29/16 06/29/16 Unknown Magnesia] Previous Rx's Medication Instructions Recorded Last Taken Type Pantoprazole [Protonix] 40 mg PO BID #60 tablet 07/07/16 Unknown Rx Ciprofloxacin HCl [Ciprofloxacin 500 mg PO Q12HR 7 Days #14 tab 07/25/19 Unknown Rx TAB] Dicyclomine [Bentyl] 20 mg PO QID PRN #20 tablet 07/25/19 Unknown Rx metroNIDAZOLE [Flagyl] 500 mg PO Q12HR 7 Days #14 tab 07/25/19 Unknown Rx Allergies Allergy/AdvReac Type Severity Reaction Status Date / Time No Known Allergies Allergy Unverified 07/11/13 08:29 ED Review of Systems ROS: Stated complaint: ABD PAIN Other details as noted in HPI Comment: All other systems reviewed and negative Gastrointestinal: abdominal pain, diarrhea. denies: nausea, vomiting ED Past Medical Hx - Past Medical History Previous Medical History?: Yes Hx Hypertension: Yes Hx CVA: Yes (x2; left deficits) Hx Heart Attack/AMI: Yes (X2) Hx Congestive Heart Failure: No Hx Diabetes: No Hx GERD: Yes Hx Asthma: No Hx COPD: No Hx HIV: No Additional medical history: Left BKA w/ prosthetic - Surgical History Past Surgical History?: Yes Hx Pacemaker: Yes Hx Cholecystectomy: Yes Hx Appendectomy: Yes Additional Surgical History: left leg amputation, intestinal gangrene - Social History Smoking Status: Current Every Day Smoker Substance Use Type: None - Medications Home Medications: Home Medications Medication Instructions Recorded Confirmed Last Taken Type Clopidogrel [Plavix] 75 mg PO QDAY 07/11/13 06/29/16 Unknown History Tamsulosin [Flomax] 0.4 mg PO QDAY 03/21/14 06/29/16 Unknown History Aspirin [Aspirin BABY CHEW TAB] 81 mg PO QDAY 12/21/15 06/29/16 Unknown History Docusate Sodium [Colace CAP] 100 mg PO BID PRN 06/29/16 06/29/16 Unknown History Magnesium Hydroxide [Milk of 400 mg PO Q8H 06/29/16 06/29/16 Unknown History Magnesia] Pantoprazole [Protonix] 40 mg PO BID #60 tablet 07/07/16 Unknown Rx Ciprofloxacin HCl [Ciprofloxacin 500 mg PO Q12HR 7 Days #14 tab 07/25/19 Unknown Rx TAB] Dicyclomine [Bentyl] 20 mg PO QID PRN #20 tablet 07/25/19 Unknown Rx metroNIDAZOLE [Flagyl] 500 mg PO Q12HR 7 Days #14 tab 07/25/19 Unknown Rx ED Physical Exam - General Limitations: Physical Limitation General appearance: alert, in no apparent distress - Head Head exam: Present: atraumatic, normocephalic - Eye Eye exam: Present: normal appearance, PERRL, EOMI - ENT ENT exam: Present: mucous membranes moist - Neck Neck exam: Present: normal inspection - Respiratory Respiratory exam: Present: normal lung sounds bilaterally. Absent: respiratory distress - Cardiovascular Cardiovascular Exam: Present: regular rate, normal rhythm - GI/Abdominal GI/Abdominal exam: Present: soft, tenderness (mild diffuse). Absent: distended - Extremities Exam Extremities exam: Present: other (left BKA present) - Neurological Exam Neurological exam: Present: alert, oriented X3, motor sensory deficit (baseline left sided weakness due to prior CVA). Absent: CN II-XII intact (baseline slurred speech due to prior CVA) - Psychiatric Psychiatric exam: Present: normal affect, normal mood - Skin Skin exam: Present: warm, dry, intact, normal color ED Course Vital Signs 07/25/19 07/25/19 07/25/19 02:30 02:32 03:00 Temperature 98.2 F Pulse Rate 92 H 93 H 98 H Respiratory 26 H 22 24 Rate Blood Pressure 150/78 150/78 150/77 Blood Pressure 150/78 [Left] O2 Sat by Pulse 95 97 95 Oximetry ED Medical Decision Making - Lab Data Result diagrams: 07/25/19 03:27 07/25/19 03:27 - Radiology Data Radiology results: report reviewed, image reviewed - Medical Decision Making 64 yo M w/ diarrhea, abdominal pain. Pt is afebrile. Labs unremarkable. CT shows colitis w/ thickening in right colon and hepatic flexure. Levaquin and flagyl given here in ED. Prescription written. Pt stable for discharge back to [facility]. - Differential Diagnosis enteritis, diverticulitis, bowel obstruction Critical care attestation.: If time is entered above; I have spent that time in minutes in the direct care of this critically ill patient, excluding procedure time. ED Disposition Clinical Impression: Colitis Disposition: DC-01 TO HOME OR SELFCARE Is pt being admited?: No Condition: Stable Instructions: Infectious Colitis (ED) Prescriptions: Dicyclomine [Bentyl] 20 mg PO QID PRN #20 tablet PRN Reason: abdominal pain Ciprofloxacin HCl [Ciprofloxacin TAB] 500 mg PO Q12HR 7 Days #14 tab metroNIDAZOLE [Flagyl] 500 mg PO Q12HR 7 Days #14 tab Referrals: [facility] [Provider Group] - as needed PRIMARY CARE, [Primary Care Provider] - 3-5 Days Time of Disposition: 04:31
[2019-07-25 03:42] LABS: Basophils # (Auto) 0.1 K/mm3 (0.0-0.1); Basophils % (Auto) 1.3 % (0.0-1.8); Eosinophils # (Auto) 0.4 K/mm3 (0.0-0.4); Eosinophils % (Auto) 4.6 % (0.0-4.3); Hematocrit 31.4 % (35.5-45.6); Hemoglobin 9.8 gm/dl (11.8-15.2); Lymphocytes # (Auto) 2.8 K/mm3 (1.2-5.4); Lymphocytes % (Auto) 29.8 % (13.4-35.0); Mean Corpuscular HGB Conc 31 % (32-34); Mean Corpuscular Volume 77 fl (84-94); Monocytes # (Auto) 1.2 K/mm3 (0.0-0.8); Monocytes % (Auto) 13.5 % (0.0-7.3); Platelet Count 371 K/mm3 (140-440); Red Blood Count 4.05 M/mm3 (3.65-5.03); Red Cell Distribution Width 19.9 % (13.2-15.2)
[2019-07-25 04:05] LABS: Alanine Aminotransferase 11 units/L (7-56); Albumin 3.2 g/dL (3.9-5); BUN/Creatinine Ratio 22; Blood Urea Nitrogen 13 mg/dL (9-20); Calcium 8.7 mg/dL (8.4-10.2); Hemolysis Index 11
--- NOTE | 2019-07-25 04:09 | Cat Scan Report ---
CT abdomen pelvis w con INDICATION: abdominal pain, diarrhea. TECHNIQUE: All CT scans at this location are performed using the following dose modulation technique: Automated exposure control. Helical slices were obtained through the abdomen and pelvis. 100 cc of Omnipaque 30 0 is administered. COMPARISON: CT scan dated 07/02/2016 FINDINGS: Abdomen: Scarring is noted in the left lung base. Postoperative changes are noted in the left upper a bdomen There is a small amount of ascites adjacent to the liver. The liver is unchanged in appearance when c ompared to the prior study. Multiple collateral vessels are noted in the abdomen. There is no bowel obstruction or free air. There are no abnormal collections. Kidneys are unchanged i n appearance. There is wall thickening noted in the right colon and hepatic flexure of the colon possibly represent ing colitis. There are small retroperitoneal lymph nodes. These are not pathologically enlarged. Pelvis: Prostate gland is enlarged. No obstruction is seen. On review of bone windows, no acute osseous abnormalities are seen. IMPRESSION: There is wall thickening noted in the right colon and hepatic flexure possibly representing colitis. There is a small amount of ascites. Postoperative changes are noted in the abdomen. Retroperitoneal nodes are mildly increased in number but slightly increased in size since the prior s tudy. These are nonspecific. Prostate gland is enlarged. There is no obstruction or free air. Signer Name: Buck Elias MD Signed: 07/25/2019 4:05 AM Workstation Name: [id number]
[2019-07-25] MEDS ORDERED: FLAGYL PO ONE (04:11)
[2019-07-25] MEDS ORDERED: LEVAQUIN PO ONE (04:11)
[2019-07-25 07:36] VITALS: BP 137/76
== END 2019-07-25 06:37 | disposition home or self-care (01) ==
LOC: ED 02:00
DX: K52.9 Noninfective gastroenteritis and colitis, unspecified (principal); I10 Essential (primary) hypertension; I25.2 Old myocardial infarction; K21.9 Gastro-esophageal reflux disease without esophagitis; F17.200 Nicotine dependence, unspecified, uncomplicated; Z89.512 Acquired absence of left leg below knee; Z95.0 Presence of cardiac pacemaker; Z90.49 Acquired absence of other specified parts of digestive tract; Z98.890 Other specified postprocedural states; Z86.73 Personal history of transient ischemic attack (TIA), and cerebral infarction without residual deficits; Z79.82 Long term (current) use of aspirin; Z79.899 Other long term (current) drug therapy
CPT/HCPCS: 36415; 74177; 80053; 83690; 85025; 96360; 96372; 99284; J0500; J7040; Q9967

== ENCOUNTER 2019-08-22 11:24 | Inpatient (IN) | payer MEDICARE ==
[2019-08-22] MEDS ORDERED: SODIUM CHLORIDE 0.9% 1000 ML 1,000 ML IV ONE ×2 (12:34→14:23)
--- NOTE | 2019-08-22 13:03 | XRay Report ---
CHEST 1 VIEW 08/22/2019 12:41 PM INDICATION / CLINICAL INFORMATION: hypertension. COMPARISON: 07/02/16 FINDINGS: SUPPORT DEVICES: None. HEART / MEDIASTINUM: Stable. LUNGS / PLEURA: No significant pulmonary or pleural abnormality. No pneumothorax. ADDITIONAL FINDINGS: No significant additional findings. IMPRESSION: 1. No acute findings. No significant change. Signer Name: Santi Castro MD Signed: 08/22/2019 12:59 PM Workstation Name: [id number]
[2019-08-22 13:19] LABS: Hematocrit 26.7 % (35.5-45.6); Hemoglobin 7.9 gm/dl (11.8-15.2); Mean Corpuscular HGB Conc 30 % (32-34); Mean Corpuscular Volume 86 fl (84-94); Red Cell Distribution Width 25.6 % (13.2-15.2)
[2019-08-22 13:20] LABS: Basophils # (Auto) 0.1 K/mm3 (0.0-0.1); Basophils % (Auto) 0.4 % (0.0-1.8); Eosinophils % (Auto) 0.2 % (0.0-4.3); Lymphocytes # (Auto) 1.2 K/mm3 (1.2-5.4); Lymphocytes % (Auto) 9.3 % (13.4-35.0); Monocytes # (Auto) 0.8 K/mm3 (0.0-0.8); Monocytes % (Auto) 6.1 % (0.0-7.3); Platelet Count 387 K/mm3 (140-440)
[2019-08-22 13:29] LABS: Alanine Aminotransferase 9 units/L (7-56); Calcium 7.5 mg/dL (8.4-10.2); Hemolysis Index 8
[2019-08-22 13:33] LABS: Bilirubin,Direct < 0.2 mg/dL (0-0.2)
[2019-08-22 13:35] LABS: BUN/Creatinine Ratio 13; Blood Urea Nitrogen 195 mg/dL (9-20)
[2019-08-22] MEDS ORDERED: DEXTROSE 50% IN WATER (25GM) 50 ML SYRINGE IV ONE (13:40)
[2019-08-22] MEDS ORDERED: SODIUM BICARB 8.4% 50 MEQ/50 ML SYRINGE IV ONE ×2 (13:40→14:31)
[2019-08-22] MEDS ORDERED: ALBUTEROL 2.5 MG/3 ML NEBU IH ONE (13:41)
[2019-08-22] MEDS ORDERED: CALCIUM CHLORIDE 1,000 MG/10 ML SYRINGE IV ONE (14:00)
[2019-08-22 14:10] LABS: INR 2.1 (0.87-1.13)
[2019-08-22 14:11] LABS: Partial Thromboplastin Time 31.8 Sec. (24.2-36.6)
--- NOTE | 2019-08-22 14:16 | Cat Scan Report ---
CT ABDOMEN AND PELVIS WITHOUT IV CONTRAST INDICATION: abd pain/distention. COMPARISON: CT 07/25/2019. TECHNIQUE: All CT scans at this facility use dose modulation, automated exposure control, iterative reconstructi on or weight based dosing, when appropriate, to reduce radiation dose to as low as reasonably achieva ble. FINDINGS: Lung Bases: No significant abnormality. Skeletal System: No acute abnormality. ABDOMEN: Liver: No significant abnormality. Gallbladder: No significant abnormality. Bile Ducts: No significant abnormality. Pancreas: No significant abnormality. Spleen: No significant abnormality. Adrenals: No significant abnormality. Right Kidney: There is mild hydronephrosis. Left Kidney: There is mild hydronephrosis. Upper GI tract: No significant abnormality. Lymph Nodes: Previously seen retroperitoneal lymph nodes are not significantly changed. Aorta: No significant abnormality. Additional Findings: There is mild ascites. There is mild diffuse mesenteric edema. Mild anasarca is noted. PELVIS: Colon: No acute abnormality. Proximal colon is relatively decompressed, limiting its evaluation. Urinary Bladder and Distal Ureters: Bladder is markedly distended. Appendix: No significant abnormality. Lymph Nodes: No significant adenopathy. Additional Findings: There is mild ascites. IMPRESSION: 1. The bladder is markedly distended. This is likely the etiology of the mild bilateral hydronephros is. Prostate is only mildly enlarged. 2. Proximal colon is decompressed, limiting its evaluation. 3. There is mild ascites, mesenteric edema, and mild anasarca. This has increased since the prior. Signer Name: Bandar Cates MD Signed: 08/22/2019 2:12 PM Workstation Name: [id number]
[2019-08-22] MEDS ORDERED: MEROPENEM/NS 1 GRAM/100 ML 1 GRAM/100 ML BAG IV ONE (14:24)
[2019-08-22] MEDS ORDERED: VANCOMYCIN/NS 1 GM/250 ML 1 GM/250 ML BAG IV ONE (14:25)
[2019-08-22] MEDS ORDERED: INSULIN REGULAR, HUMAN 100 UNITS/1 ML IV ONE (14:27)
[2019-08-22] MEDS ORDERED: SODIUM POLYSTYRENE 15 GM/60 ML ORAL LIQD PO ONE (14:32)
[2019-08-22] MEDS ORDERED: PANTOPRAZOLE 40 MG INJ IV ONE (14:44)
--- NOTE | 2019-08-22 14:44 | Emergency Department Report ---
ED General Adult HPI - General Chief complaint: Abdominal Pain Stated complaint: ABD PAIN Time Seen by Provider: 08/22/19 12:30 Source: EMS Mode of arrival: Stretcher Limitations: Other - History of Present Illness Initial comments: This is a 64 year old man who I believe is a total care patient skilled nursing. He is sent because the skilled nursing staff observed his abdomen to the distended. I do not know the time frame. I have no report of vomiting. I have no report of a change in his urine output. There is no referred fever or chills. The transfer note from the skilled nursing is really quite minimal. The patient is not able to provide any historical information. He can barely tell me his name but does make an effort at doing that. Does seem to recognize that he has some abdominal problem. He is not able to tell me what might be hurting. - Related Data Home Medications Medication Instructions Recorded Confirmed Last Taken Clopidogrel [Plavix] 75 mg PO QDAY 07/11/13 06/29/16 Unknown Tamsulosin [Flomax] 0.4 mg PO QDAY 03/21/14 06/29/16 Unknown Aspirin [Aspirin BABY CHEW TAB] 81 mg PO QDAY 12/21/15 06/29/16 Unknown Docusate Sodium [Colace CAP] 100 mg PO BID PRN 06/29/16 06/29/16 Unknown Magnesium Hydroxide [Milk of 400 mg PO Q8H 06/29/16 06/29/16 Unknown Magnesia] Previous Rx's Medication Instructions Recorded Last Taken Type Pantoprazole [Protonix] 40 mg PO BID #60 tablet 07/07/16 Unknown Rx Ciprofloxacin HCl [Ciprofloxacin 500 mg PO Q12HR 7 Days #14 tab 07/25/19 Unknown Rx TAB] Dicyclomine [Bentyl] 20 mg PO QID PRN #20 tablet 07/25/19 Unknown Rx metroNIDAZOLE [Flagyl] 500 mg PO Q12HR 7 Days #14 tab 07/25/19 Unknown Rx Allergies Allergy/AdvReac Type Severity Reaction Status Date / Time No Known Allergies Allergy Unverified 07/11/13 08:29 ED Review of Systems ROS: Stated complaint: ABD PAIN Other details as noted in HPI ED Past Medical Hx - Past Medical History Previous Medical History?: Yes Hx Hypertension: Yes Hx CVA: Yes (x2; left deficits) Hx Heart Attack/AMI: Yes (X2) Hx Congestive Heart Failure: No Hx Diabetes: No Hx GERD: Yes Hx Asthma: No Hx COPD: No Hx HIV: No Additional medical history: 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 - Surgical History Past Surgical History?: Yes Hx Pacemaker: Yes Hx Cholecystectomy: Yes Hx Appendectomy: Yes Additional Surgical History: left leg amputation, intestinal gangrene - Social History Smoking Status: Unknown if ever smoked Substance Use Type: None - Medications Home Medications: Home Medications Medication Instructions Recorded Confirmed Last Taken Type Clopidogrel [Plavix] 75 mg PO QDAY 07/11/13 06/29/16 Unknown History Tamsulosin [Flomax] 0.4 mg PO QDAY 03/21/14 06/29/16 Unknown History Aspirin [Aspirin BABY CHEW TAB] 81 mg PO QDAY 12/21/15 06/29/16 Unknown History Docusate Sodium [Colace CAP] 100 mg PO BID PRN 06/29/16 06/29/16 Unknown History Magnesium Hydroxide [Milk of 400 mg PO Q8H 06/29/16 06/29/16 Unknown History Magnesia] Pantoprazole [Protonix] 40 mg PO BID #60 tablet 07/07/16 Unknown Rx Ciprofloxacin HCl [Ciprofloxacin 500 mg PO Q12HR 7 Days #14 tab 07/25/19 Unknown Rx TAB] Dicyclomine [Bentyl] 20 mg PO QID PRN #20 tablet 07/25/19 Unknown Rx metroNIDAZOLE [Flagyl] 500 mg PO Q12HR 7 Days #14 tab 07/25/19 Unknown Rx ED Physical Exam - General Limitations: Physical Limitation General appearance: alert, in no apparent distress, other (pale) - Head Head exam: Present: atraumatic, normocephalic - Eye Eye exam: Present: normal appearance. Absent: scleral icterus - ENT ENT exam: Present: mucous membranes moist - Neck Neck exam: Present: normal inspection - Respiratory Respiratory exam: Present: normal lung sounds bilaterally. Absent: respiratory distress - Cardiovascular Cardiovascular Exam: Present: regular rate, normal rhythm. Absent: systolic murmur, diastolic murmur, rubs, gallop - GI/Abdominal GI/Abdominal exam: Present: soft, distended, tenderness (difficult to determine but not exquisitely so), normal bowel sounds. Absent: guarding, rebound - Rectal Rectal exam: Present: deferred - Extremities Exam Extremities exam: Present: other (left BKA) - Back Exam Back exam: Present: other (unable to inspect) - Neurological Exam Neurological exam: Present: CN II-XII intact (no acute deficit is evident), other (a bit lethargic). Absent: motor sensory deficit (no acute deficit is evident) - Psychiatric Psychiatric exam: Present: normal mood, flat affect - Skin Skin exam: Present: warm, dry, intact, pallor. Absent: rash ED Course Vital Signs 08/22/19 12:00 Temperature 98.1 F Pulse Rate 70 Respiratory 15 Rate Blood Pressure 153/66 Blood Pressure 153/66 [Right] O2 Sat by Pulse 94 Oximetry - Reevaluation(s) Reevaluation #1: She was found to be hyperkalemic. 08/22/19 14:47 ED Medical Decision Making - Lab Data Result diagrams: 08/22/19 12:14 08/22/19 12:39 Laboratory Results - last 24 hr 08/22/19 08/22/19 08/22/19 12:14 12:39 12:39 WBC 13.0 H RBC 3.10 L Hgb 7.9 L Hct 26.7 L MCV 86 MCH 26 L MCHC 30 L RDW 25.6 H Plt Count 387 Lymph % (Auto) 9.3 L Kings % (Auto) 6.1 Eos % (Auto) 0.2 Baso % (Auto) 0.4 Lymph # 1.2 Kings # 0.8 Eos # 0.0 Baso # 0.1 Seg Neutrophils % 84.0 H Seg Neutrophils # 10.9 H PT 23.1 H INR 2.10 H APTT 31.8 Sodium Potassium Chloride Carbon Dioxide Anion Gap BUN Creatinine Estimated GFR BUN/Creatinine Ratio Glucose Lactic Acid 1.00 Calcium Magnesium Total Bilirubin Direct Bilirubin Indirect Bilirubin AST ALT Alkaline Phosphatase Ammonia Troponin T NT-Pro-B Natriuret Pep Total Protein Albumin Albumin/Globulin Ratio Lipase Blood Type Antibody Screen 08/22/19 08/22/19 08/22/19 12:39 12:39 12:39 WBC RBC Hgb Hct MCV MCH MCHC RDW Plt Count Lymph % (Auto) Kings % (Auto) Eos % (Auto) Baso % (Auto) Lymph # Kings # Eos # Baso # Seg Neutrophils % Seg Neutrophils # PT INR APTT Sodium 139 Potassium 7.2 H* Chloride 102.2 Carbon Dioxide 12 L Anion Gap 32 BUN 195 H Creatinine 15.2 H Estimated GFR 3 BUN/Creatinine Ratio 13 Glucose 132 H Lactic Acid Calcium 7.5 L Magnesium 3.50 H Total Bilirubin 0.30 Direct Bilirubin < 0.2 Indirect Bilirubin 0.1 AST 13 ALT 9 Alkaline Phosphatase 136 H Ammonia 267.0 H Troponin T < 0.010 NT-Pro-B Natriuret Pep 1788 H Total Protein 7.2 Albumin 3.0 L Albumin/Globulin Ratio 0.7 Lipase 18 Blood Type O POSITIVE Antibody Screen Negative - EKG Data EKG shows normal: sinus rhythm Rate: normal - EKG Data Interpretation: other (ectopy noted previous inferior zone and possibly a septal zone consider hyperkalemia U waves are prominent certain leads and sharp ) - Radiology Data Radiology results: report reviewed interpreted by me: Chest x-ray looked like it had some fluid at the left base but no free air Critical Care Time: Yes Critical care time in (mins) excluding proc time.: 80 Critical care attestation.: If time is entered above; I have spent that time in minutes in the direct care of this critically ill patient, excluding procedure time. ED Disposition Clinical Impression: Bladder outlet obstruction, Hyperkalemia, Metabolic acidosis, Uremia, Hepatic encephalopathy Acute renal failure Qualifiers: Acute renal failure type: unspecified Qualified Code(s): N17.9 - Acute kidney failure, unspecified Anemia Qualifiers: Anemia type: unspecified type Qualified Code(s): D64.9 - Anemia, unspecified Disposition: OP ADMIT IP TO THIS HOSP Is pt being admited?: Yes Does the pt Need Aspirin: No Condition: Stable Time of Disposition: 15:00
[2019-08-22] MEDS ORDERED: WATER FOR INJ Sterile (PF) 10 ML ONE (14:50)
[2019-08-22] MEDS ORDERED: VANCOMYCIN 1,750 MG in SODIUM CHLORIDE 0.9% 500 ML 500 ML IV ONE (15:00)
[2019-08-22 16:02] LABS: Color,Urine Yellow (Yellow)
[2019-08-22 16:03] LABS: Bacteria,Urine 1+ /HPF (Negative); Bilirubin,Urine NEG (Negative); Blood,Urine LG (Negative); Mucus,Urine FEW /HPF; Protein,Urine <15 mg/dL mg/dL (Negative); Urobilinogen,Urine < 2.0 mg/dL (<2.0)
[2019-08-22 16:12] LABS: RBC,Urine > 182.0 /HPF (0.0-6.0)
[2019-08-22] MEDS ORDERED: SODIUM BICARBONATE 150 MEQ in DEXTROSE 5% IN WATER 1,000 ML IV SCH (19:00)
[2019-08-22 19:07] LABS: Calcium 8.2 mg/dL (8.4-10.2)
[2019-08-22] MEDS ORDERED: D5W/0.45% NACL 1,000 ML IV SCH (22:00)
[2019-08-22] MEDS: cefTRIAXone/NS 1 GM/50 ML 1 GM/50 ML BAG IV SCH (23:08)
[2019-08-22 23:31] LABS: Hematocrit 23.6 % (35.5-45.6); Hemoglobin 7.7 gm/dl (11.8-15.2)
[2019-08-23] MEDS: HYDROmorphone 1 MG/1 ML INJ IV PRN ×4 (00:33→20:33)
[2019-08-23 04:15] LABS: Basophils % (Auto) 0.1 % (0.0-1.8); Hematocrit 21.5 % (35.5-45.6); Lymphocytes # (Auto) 0.8 K/mm3 (1.2-5.4); Lymphocytes % (Auto) 6.9 % (13.4-35.0); Mean Corpuscular HGB Conc 33 % (32-34); Mean Corpuscular Volume 79 fl (84-94); Monocytes # (Auto) 1.4 K/mm3 (0.0-0.8); Monocytes % (Auto) 11.4 % (0.0-7.3); Platelet Count 390 K/mm3 (140-440); Red Blood Count 2.73 M/mm3 (3.65-5.03); Red Cell Distribution Width 24.9 % (13.2-15.2)
[2019-08-23 04:27] LABS: Calcium 8.6 mg/dL (8.4-10.2)
--- NOTE | 2019-08-23 05:41 | Event Note ---
Date: 08/22/19 See H/p in reports [facility] Hyperkalemia Hematemesis Hepatic Encephalopathy Obstructive Uropathy Hydronephrosis
[2019-08-23] MEDS: POTASSIUM CHLORIDE 40 MEQ in DEXTROSE 5% IN WATER 1,000 ML IV SCH (06:04)
--- NOTE | 2019-08-23 06:39 | History and Physical Report ---
CHIEF COMPLAINTS: 1. Abdominal pain. 2. Abdominal distention for 2 days. HISTORY OF PRESENT ILLNESS: A 64-year-old male with history of cerebrovascular accident, left-sided deficits, GI bleed in the past in 2016, left gastric artery embolization, left-sided deficits and left BKA, [facility], [facility] the [facility] for no urinary output for the last 1 week. Also, severe abdominal distention. Altered sensorium. No fever or chills. Decreased mentation. Lethargic. The patient has extensive medical record from [facility], which was reviewed. Of note, the patient was admitted in 06/2016 and was discharged after left gastric artery embolization for uncontrolled gastrointestinal bleed. The patient also had a pacemaker in the same year secondary to bradycardia. Has left-sided deficit secondary to CVA. Also, has a left-sided BKA. The patient has been a [facility] resident for the last many years. PAST MEDICAL HISTORY: As mentioned, BPH, cerebrovascular accident, hypertension, left recurrent gangrene for which the patient had left BKA. NC in the past and also cirrhosis with varices. PAST SURGICAL HISTORY: Appendectomy, cholecystectomy, pacemaker, left leg below knee amputation and intestinal gangrene. SOCIAL HISTORY: Does not smoke. No alcohol, no recreational drugs now. FAMILY HISTORY: Hypertension. CURRENT MEDICATIONS: Flomax 0.4 daily, Protonix 40 mg p.o. b.i.d., Bentyl 20 mg p.o. b.i.d. REVIEW OF SYSTEMS: Significant for upper GI bleed in the Emergency Room. Altered sensorium. Abdominal distention, decreased urinary output. Otherwise, review of systems negative. PHYSICAL EXAMINATION: GENERAL: Young elderly male, obese, alert, but looked lethargic. VITAL SIGNS: Blood pressure is 134/64, temperature is 98, pulse is 98, respirations are 18. HEENT: Unremarkable. Pupils equal and reactive. NECK: Supple, no lymphadenopathy, no thyromegaly. LUNGS: Clear to auscultation and percussion. Good air entry. CARDIOVASCULAR SYSTEM: S1, S2 heard. No gallop, no murmur, no rub. Apical impulse in left fifth intercostal space and midclavicular line. ABDOMEN: Distended. Bowel sounds are decreased. EXTREMITIES: Left below knee amputation. CENTRAL NERVOUS SYSTEM: Awake, but lethargic. Trying to answer questions, but not able to answer questions. LABORATORY DATA: Significant for white count of 9200, H and H of 9.8 and 31.4, platelet count of 371,000. Sodium is 140, potassium is 3.7. White count is 13,000; H and H is 7.9 and 26.7; platelet count is 387,000. Sodium is 139, potassium is 7.2, chloride is 102, bicarbonate is 12, BUN and creatinine is 195 and 15.2, glucose is 132, calcium is 7.5, magnesium is 3.5, alkaline phosphatase is 136. Ammonia level is 267. BNP is 1788. Urine wbc's 22. DIAGNOSTIC DATA: CT of the abdomen shows markedly distended bladder. Mild bilateral hydronephrosis. Prostate is mildly enlarged proximal colon is decompressed, mild ascites, mesenteric edema and mild anasarca. This is increased since prior to admission. Chest x-ray shows no acute findings. ASSESSMENT AND PLAN: 1. Hyperkalemia. The patient was given IV dextrose and IV insulin, sodium bicarbonate and also calcium chloride. Potassium to be monitored closely every 3-4 hours. 2. Acute kidney injury. The patient has a normal creatinine of 0.6 in 07/2019. When the patient came for some abdominal complaints and was seen in the Emergency Room and discharged. Now, the creatinine is 15.2 and BUN is 195. Possible obstructive uropathy secondary to benign prostatic hypertrophy. The patient catheterized. De La Garza catheter revealed 2.2 liters of fluid and eventually the total drainage of 9 liters of urine over the next 6 hours. 3. Hyperammonemia, lactulose enema to be given for controlling the ammonia level. 4. Urinary tract infection, IV Rocephin initiated 1 gram q. 24 pending cultures. 5. Upper gastrointestinal bleed. IV Protonix initiated. GI consult requested. Monitor hemoglobin and hematocrit. 6. Hepatic encephalopathy. Lactulose as ordered. GI consult. Also, Nephrology consult for acute kidney injury and hyperkalemia and sales representative jewelry consult for overall management. 5. Deep venous thrombosis prophylaxis, on sequential compression devices. Advance care planning. DNR was discussed with son and daughter were amenable to DNR, but have not yet signed the paper. Primary team to follow with the children, daughter and son regarding DNR. Critical care time 45 minutes. JOB# [id number] [employer]
[2019-08-23] MEDS ORDERED: DEXTROSE 5% IN WATER 1,000 ML IV SCH (07:00)
[2019-08-23] MEDS: LACTULOSE ENEMA 1000 ML PR SCH ×3 (07:00→18:30)
--- NOTE | 2019-08-23 07:08 | Consultation ---
History of Present Illness - Reason for Consult Consult date: 08/23/19 acute renal failure, hypernatremia, hyperkalemia - History of Present Illness The patient is a 64 YO male from [facility] with history significant for DM, HTN, Cirrhosis w/ varices, CVA and CAD who was brought to [facility] ED for evaluation of AMS and abdominal distention. The patient was not able to provide any history. Per son who was at the bedside was not able to provide any history either. He was also found to have hemetemesis. His labs are significant for creat 15.2, K 7.2, HB 7.[address] abdomen showed obstructive uropathy. He is s/p ferguson catheter. Nephrology was consulted for further evaluation. Past History Past Medical History: diabetes, hypertension, hyperlipidemia, liver disease, stroke Medications and Allergies Allergies Allergy/AdvReac Type Severity Reaction Status Date / Time No Known Allergies Allergy Unverified 07/11/13 08:29 Home Medications Medication Instructions Recorded Confirmed Last Taken Type Apixaban [Eliquis] 5 mg PO BID 08/22/19 08/22/19 Unknown History Ascorbic Acid [Vitamin C] 500 mg PO Q12H 08/22/19 08/22/19 Unknown History AtorvaSTATin [Lipitor] 40 mg PO QHS 08/22/19 08/22/19 Unknown History Carvedilol [Coreg] 6.25 mg PO BID 08/22/19 08/22/19 Unknown History Dicyclomine [Bentyl] 20 mg PO QID PRN 08/22/19 08/22/19 Unknown History Docusate Sodium [Colace] 100 mg PO BID 08/22/19 08/22/19 Unknown History Flomax 0.4 mg PO QHS 08/22/19 08/22/19 Unknown History Folic Acid [Folvite] 1 mg PO QDAY 08/22/19 08/22/19 Unknown History HYDROcodone/APAP 5-325 [[place] 1 each PO Q6HR PRN 08/22/19 08/22/19 Unknown History 5/325] Ibuprofen [Motrin] 600 mg PO Q8H PRN 08/22/19 08/22/19 Unknown History Lisinopril [Zestril TAB] 10 mg PO QDAY 08/22/19 08/22/19 Unknown History Loperamide [Imodium] 2 mg PO BID PRN 08/22/19 08/22/19 Unknown History Magnesium Hydroxide [Milk of 400 mg PO Q24HR PRN 08/22/19 08/22/19 Unknown History Magnesia] Melatonin 3 mg PO QHS 08/22/19 08/22/19 Unknown History Multivit with Minerals No.55 1 tab PO DAILY 08/22/19 08/22/19 Unknown History Pantoprazole [Protonix] 40 mg PO QDAY 08/22/19 08/22/19 Unknown History Sennosides/Docusate Sodium [Senna 1 each PO DAILY 08/22/19 08/22/19 Unknown History Plus Tablet] diphenhydrAMINE [Benadryl CAP] 25 mg PO Q6HR PRN 08/22/19 08/22/19 Unknown History Active Meds: Active Medications Hydromorphone HCl (Dilaudid) 0.25 mg IV Q3H PRN PRN Reason: Pain, Moderate (4-6) Last Admin: 08/23/19 06:25 Dose: 0.25 mg Documented by: Ceftriaxone Sodium (Rocephin/Ns 1 Gm/50 Ml) 1 gm in 50 mls @ 100 mls/hr IV Q24HR@2200 KJ; Protocol Last Admin: 08/22/19 23:08 Dose: 100 mls/hr Documented by: Potassium Chloride 40 meq/ (Dextrose) 1,020 mls @ 75 mls/hr IV DIRECT KJ Last Admin: 08/23/19 06:04 Dose: 75 mls/hr Documented by: Pantoprazole Sodium 80 mg/ (Sodium Chloride) 100 mls @ 10 mls/hr IV DIRECT KJ Dextrose (D5w) 1,000 mls @ 100 mls/hr IV DIRECT KJ Lactulose (Cephulac) 200 gm [place] Q6H KJ Sodium Chloride (Sodium Chloride Flush Syringe 10 Ml) 10 ml IV BID KJ Last Admin: 08/22/19 23:09 Dose: 10 ml Documented by: Sodium Chloride (Sodium Chloride Flush Syringe 10 Ml) 10 ml IV PRN PRN PRN Reason: LINE FLUSH Review of Systems ROS unobtainable: due to mental status Exam - Vital Signs Vital signs: Vital Signs Pulse Resp BP Pulse Ox 70 14 153/66 92 08/22/19 11:45 08/22/19 11:45 08/22/19 11:45 08/22/19 11:45 - General Appearance General appearance: well-developed, appears stated age, other (no distress) EENT: ATNC, PERRL Neck: Present: trachea midline Respiratory: Clear to Ascultation Heart: S1S2, no murmurs Gastrointestinal: Present: normoactive bowel sounds. Absent: tenderness Integumentary: no rash, warm and dry Neurologic: other (basrely able to tell his name, not following any command) Musculoskeletal: Present: other (no edema) Results - Lab Results 08/23/19 13:52 08/23/19 03:46 Most recent lab results Calcium 8.6 mg/dL (8.4-10.2) 08/23/19 03:46 Magnesium 3.50 mg/dL (1.7-2.3) H 08/22/19 12:39 - Image Kidney/bladder ultrasound: other Assessment and Plan 1. Acute kidney injury: LAVONNE in the setting of obstructive uropathy =/- vasomotor insult. CT abdomen showed obstructive nephropathy. S/p ferguson catheter. Renal function is improving. Monitor renal function. Renal prognosis is guarded. Avoid nephrotoxic agents. Meds dosage based on GFR. 2. FEN: Hyperkalemia, improved. Hypernatremia, IV fluids changed to D5W. Metabolic acidosis, improving. Monitor lytes. 3. GI bleed/hematemesis: H/o Esophageal varices. Octreotide drip. Followed by GI. 4. H/o cirrhosis. 5. Hepatic encephalopathy. 6. Acute blood loss Anemia: POA.
[2019-08-23] MEDS: PANTOPRAZOLE 80 MG in SODIUM CHLORIDE 0.9% 100 ML IV SCH (07:43)
--- NOTE | 2019-08-23 09:12 | XRay Report ---
ABDOMEN 1 VIEW(S) INDICATION / CLINICAL INFORMATION: Nasogastric tube placement. COMPARISON: None available. FINDINGS: TUBES / LINES: The nasogastric tube is only partially imaged. The nasogastric tube appears to be fold ed back upon itself with a segment in the gastric cardia but the distal tip projecting back into the distal esophagus. BOWEL GAS PATTERN: No significant abnormality. FREE AIR / EXTRALUMINAL GAS: None seen. ADDITIONAL FINDINGS: No significant additional findings. IMPRESSION: Recommend replacement of the nasogastric tube. The nasogastric tube enters the proximal stomach but t he distal tip is folded back upon itself terminating in the distal esophagus. Signer Name: Elieser Parker Jr, MD Signed: 08/23/2019 9:08 AM Workstation Name: [id number]
--- NOTE | 2019-08-23 11:07 | Gastroenterology Consultation ---
History of Present Illness - Reason for Consult Consult date: 08/23/19 GI bleed Requesting physician: GERRI ALANIS - History of Present Illness Patient is a 64 y/o senior living resident with multiple medical conditions (cirrhosis w/ varices, CVA, CAD, etc.) who was brought to ED for evaluation of AMS and abdominal distention. Upon admission, he was found to have LAVONNE with hyperkalemia, obstructive uropathy/hydronephrosis (s/p ferguson placement), and hepatic encephalopathy with ammonia level elevated. GI has been consulted for hematemesis (s/p NGT placement). This morning patient was resting in bed w/o acute distress but noted to be lethargic and unable to provide history. Family at bedside (son/daughter) who assisted with history. No active signs of bleeding this am (NGT to LIS w/o bloody drainage). Family reports a hx of esophageal varices s/p multiple bandings but unable to recall last episode. Not on any maintenance medications for cirrhosis at home. No evidence of abd pain. Abd distention now improved. Stool dark brown/black upon exam. Patient is previously known to our service with last consult in 2015 for GI bleeding. EGD at that time showed grade I esophageal varices (not source of bleeding), complex hiatal hernia, and vascular lesion (?prolapsed hernia tissue, ?Gastric varices, ?GIST) in the stomach not amenable to endoscopic tx requiring embolization by IR. Past History Past Medical History: CAD, GERD, hypertension, liver disease (cirrhosis w/ EV), stroke, other Past Surgical History: appendectomy, cholecystectomy, bowel surgery (intestinal gangrene; spleen), Other (left BKA; pacemaker) Social history: other (senior living resident). denies: smoking, alcohol abuse Medications and Allergies Allergies Allergy/AdvReac Type Severity Reaction Status Date / Time No Known Allergies Allergy Unverified 07/11/13 08:29 Home Medications Medication Instructions Recorded Confirmed Last Taken Type Apixaban [Eliquis] 5 mg PO BID 08/22/19 08/22/19 Unknown History Ascorbic Acid [Vitamin C] 500 mg PO Q12H 08/22/19 08/22/19 Unknown History AtorvaSTATin [Lipitor] 40 mg PO QHS 08/22/19 08/22/19 Unknown History Carvedilol [Coreg] 6.25 mg PO BID 08/22/19 08/22/19 Unknown History Dicyclomine [Bentyl] 20 mg PO QID PRN 08/22/19 08/22/19 Unknown History Docusate Sodium [Colace] 100 mg PO BID 08/22/19 08/22/19 Unknown History Flomax 0.4 mg PO QHS 08/22/19 08/22/19 Unknown History Folic Acid [Folvite] 1 mg PO QDAY 08/22/19 08/22/19 Unknown History HYDROcodone/APAP 5-325 [[place] 1 each PO Q6HR PRN 08/22/19 08/22/19 Unknown History 5/325] Ibuprofen [Motrin] 600 mg PO Q8H PRN 08/22/19 08/22/19 Unknown History Lisinopril [Zestril TAB] 10 mg PO QDAY 08/22/19 08/22/19 Unknown History Loperamide [Imodium] 2 mg PO BID PRN 08/22/19 08/22/19 Unknown History Magnesium Hydroxide [Milk of 400 mg PO Q24HR PRN 08/22/19 08/22/19 Unknown History Magnesia] Melatonin 3 mg PO QHS 08/22/19 08/22/19 Unknown History Multivit with Minerals No.55 1 tab PO DAILY 08/22/19 08/22/19 Unknown History Pantoprazole [Protonix] 40 mg PO QDAY 08/22/19 08/22/19 Unknown History Sennosides/Docusate Sodium [Senna 1 each PO DAILY 08/22/19 08/22/19 Unknown History Plus Tablet] diphenhydrAMINE [Benadryl CAP] 25 mg PO Q6HR PRN 08/22/19 08/22/19 Unknown History Active Meds: Active Medications Hydromorphone HCl (Dilaudid) 0.25 mg IV Q3H PRN PRN Reason: Pain, Moderate (4-6) Last Admin: 08/23/19 10:22 Dose: 0.25 mg Documented by: Ceftriaxone Sodium (Rocephin/Ns 1 Gm/50 Ml) 1 gm in 50 mls @ 100 mls/hr IV Q24HR@2200 KJ; Protocol Last Admin: 08/22/19 23:08 Dose: 100 mls/hr Documented by: Potassium Chloride 40 meq/ (Dextrose) 1,020 mls @ 75 mls/hr IV DIRECT KJ Last Admin: 08/23/19 06:04 Dose: 75 mls/hr Documented by: Pantoprazole Sodium 80 mg/ (Sodium Chloride) 100 mls @ 10 mls/hr IV DIRECT KJ Last Admin: 08/23/19 07:43 Dose: 8 mg/hr, 10 mls/hr Documented by: Lactulose (Cephulac) 200 gm [place] Q6H KJ Sodium Chloride (Sodium Chloride Flush Syringe 10 Ml) 10 ml IV BID KJ Last Admin: 08/22/19 23:09 Dose: 10 ml Documented by: Sodium Chloride (Sodium Chloride Flush Syringe 10 Ml) 10 ml IV PRN PRN PRN Reason: LINE FLUSH medications reviewed/updated as required Review of Systems - Review of Systems ROS unobtainable: due to mental status Exam - Constitutional Vital Signs: Temp Pulse Resp BP Pulse Ox 98.5 F 100 H 16 169/72 96 08/23/19 04:00 08/23/19 07:30 08/23/19 07:30 08/23/19 07:30 08/23/19 07:30 General appearance: no acute distress, other (lethargic) - EENT ENT: other (+NGT ) - Respiratory Respiratory effort: normal - Cardiovascular Rhythm: other (tachycardia) - Gastrointestinal General gastrointestinal: Present: soft, non-distended, normal bowel sounds, other (+scar from previous surgeries) Rectal Exam: stool dark (stool dark brown/black upon rectal exam- 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 exam (Miko)) - Neurologic Neurological: other (unable to assess) - Labs CBC & Chem 7: 08/23/19 03:46 08/23/19 03:46 Lab Results: Laboratory Results - last 24 hr 08/22/19 08/22/19 08/22/19 12:14 12:39 12:39 WBC 13.0 H RBC 3.10 L Hgb 7.9 L Hct 26.7 L MCV 86 MCH 26 L MCHC 30 L RDW 25.6 H Plt Count 387 Lymph % (Auto) 9.3 L [place] % (Auto) 6.1 Eos % (Auto) 0.2 Baso % (Auto) 0.4 Lymph # 1.2 [place] # 0.8 Eos # 0.0 Baso # 0.1 Seg Neutrophils % 84.0 H Seg Neutrophils # 10.9 H PT 23.1 H INR 2.10 H APTT 31.8 Sodium Potassium Chloride Carbon Dioxide Anion Gap BUN Creatinine Estimated GFR BUN/Creatinine Ratio Glucose Lactic Acid 1.00 Calcium Magnesium Total Bilirubin Direct Bilirubin Indirect Bilirubin AST ALT Alkaline Phosphatase Ammonia Troponin T NT-Pro-B Natriuret Pep Total Protein Albumin Albumin/Globulin Ratio Lipase Urine Color Urine Turbidity Urine pH Ur Specific [place] Urine Protein Urine Glucose (UA) Urine Ketones Urine Blood Urine Nitrite Urine Bilirubin Urine Urobilinogen Ur Leukocyte Esterase Urine WBC (Auto) Urine RBC (Auto) Urine Bacteria (Auto) Urine Mucus Blood Type Antibody Screen 08/22/19 08/22/19 08/22/19 12:39 12:39 12:39 WBC RBC Hgb Hct MCV MCH MCHC RDW Plt Count Lymph % (Auto) [place] % (Auto) Eos % (Auto) Baso % (Auto) Lymph # [place] # Eos # Baso # Seg Neutrophils % Seg Neutrophils # PT INR APTT Sodium 139 Potassium 7.2 H* Chloride 102.2 Carbon Dioxide 12 L Anion Gap 32 BUN 195 H Creatinine 15.2 H Estimated GFR 3 BUN/Creatinine Ratio 13 Glucose 132 H Lactic Acid Calcium 7.5 L Magnesium 3.50 H Total Bilirubin 0.30 Direct Bilirubin < 0.2 Indirect Bilirubin 0.1 AST 13 ALT 9 Alkaline Phosphatase 136 H Ammonia 267.0 H Troponin T < 0.010 NT-Pro-B Natriuret Pep 1788 H Total Protein 7.2 Albumin 3.0 L Albumin/Globulin Ratio 0.7 Lipase 18 Urine Color Urine Turbidity Urine pH Ur Specific [place] Urine Protein Urine Glucose (UA) Urine Ketones Urine Blood Urine Nitrite Urine Bilirubin Urine Urobilinogen Ur Leukocyte Esterase Urine WBC (Auto) Urine RBC (Auto) Urine Bacteria (Auto) Urine Mucus Blood Type O POSITIVE Antibody Screen Negative 08/22/19 08/22/19 08/22/19 15:12 18:13 23:07 WBC RBC Hgb Hct MCV MCH MCHC RDW Plt Count Lymph % (Auto) [place] % (Auto) Eos % (Auto) Baso % (Auto) Lymph # [place] # Eos # Baso # Seg Neutrophils % Seg Neutrophils # PT INR APTT Sodium 148 H D Potassium 5.0 D Chloride 107.1 H Carbon Dioxide 15 L Anion Gap 31 BUN 173 H Creatinine 11.0 H Estimated GFR 5 BUN/Creatinine Ratio 16 Glucose 151 H Lactic Acid 1.60 Calcium 8.2 L Magnesium Total Bilirubin Direct Bilirubin Indirect Bilirubin AST ALT Alkaline Phosphatase Ammonia Troponin T NT-Pro-B Natriuret Pep Total Protein Albumin Albumin/Globulin Ratio Lipase Urine Color Yellow Urine Turbidity Clear Urine pH 6.0 Ur Specific [place] 1.011 Urine Protein <15 mg/dl Urine Glucose (UA) Neg Urine Ketones Neg Urine Blood Lg Urine Nitrite Neg Urine Bilirubin Neg Urine Urobilinogen < 2.0 Ur Leukocyte Esterase Mod Urine WBC (Auto) 22.0 H Urine RBC (Auto) > 182.0 Urine Bacteria (Auto) 1+ Urine Mucus Few Blood Type Antibody Screen 08/22/19 08/23/19 08/23/19 23:07 03:46 03:46 WBC 12.2 H RBC 2.73 L Hgb 7.7 L 7.0 L Hct 23.6 L 21.5 L MCV 79 L MCH 26 L MCHC 33 RDW 24.9 H Plt Count 390 Lymph % (Auto) 6.9 L [place] % (Auto) 11.4 H Eos % (Auto) 0.0 Baso % (Auto) 0.1 Lymph # 0.8 L [place] # 1.4 H Eos # 0.0 Baso # 0.0 Seg Neutrophils % 81.6 H Seg Neutrophils # 10.0 H PT INR APTT Sodium 160 H D Potassium 3.4 L D Chloride 121.8 H Carbon Dioxide 22 D Anion Gap 20 BUN 116 H Creatinine 5.4 H D Estimated GFR 11 BUN/Creatinine Ratio 21 Glucose 209 H Lactic Acid Calcium 8.6 Magnesium Total Bilirubin Direct Bilirubin Indirect Bilirubin AST ALT Alkaline Phosphatase Ammonia Troponin T NT-Pro-B Natriuret Pep Total Protein Albumin Albumin/Globulin Ratio Lipase Urine Color Urine Turbidity Urine pH Ur Specific [place] Urine Protein Urine Glucose (UA) Urine Ketones Urine Blood Urine Nitrite Urine Bilirubin Urine Urobilinogen Ur Leukocyte Esterase Urine WBC (Auto) Urine RBC (Auto) Urine Bacteria (Auto) Urine Mucus Blood Type Antibody Screen Assessment and Plan 1.GI bleed/hematemesis 2.hepatic encephalopathy 3.H/o cirrhosis w/ esophageal varices -plt 387; INR 2.10 -ammonia-267 on admission -abd CT reviewed (liver normal, mild ascites) -H/H 7.7/23.6- stable this am -continue to monitor H/H and transfuse as needed -hold blood thinning medications -hematemeiss noted following NGT placement yesterday per nursing; stool dark brown/black upon rectal exam (NGT w/o blood this am) -last EGD 2015 showed grade I esophageal varices (not source of bleeding), complex hiatal hernia, and vascular lesion (?prolapsed hernia tissue, ?Gastric varices, ?GIST) in the stomach not amenable to endoscopic tx requiring embolization by IR. -will tentatively schedule for EGD today for further evaluation -Keep NPO -start on octreotide drip -continue protonix drip -continue lactulose and empiric antibiotics -continue to trend labs and supportive care -will follow 4.LAVONNE 5.Hyperkalemia 6.Obstructive Uropathy 7.Hydronephrosis
--- NOTE | 2019-08-23 11:22 | Progress Note ---
Assessment and Plan Assessment and plan: Acute kidney injury. Admitted to ICU Nephrology managing Cr improving 5.4 from 15.2 on admission Hyperkalemia Now resolved GI bleed/hematemesis GI following Transfuse 1 unit PRBC History of varices Octreotide drip Protonix drip GI following Anemia due to acute blood loss Transfuse 1 unit prbc Acute hepatic encephalopathy, metabolic encephalopathy Neurochecks Hydronephrosis Will consult Urology Full code status History Interval history: No urine for about 1 week confused Abd distension Hospitalist Physical - Constitutional Vitals: Temp Pulse Resp BP Pulse Ox 98.5 F 100 H 16 169/72 96 08/23/19 04:00 08/23/19 07:30 08/23/19 07:30 08/23/19 07:30 08/23/19 07:30 General appearance: Present: no acute distress - EENT ENT: hearing intact - Neck Neck: Present: supple, normal ROM - Respiratory Respiratory effort: normal Respiratory: bilateral: CTA - Cardiovascular Rhythm: regular Heart Sounds: Present: S1 & S2 - Extremities Extremity abnormal: other (Left BKA) - Abdominal General gastrointestinal: soft, non-tender, distended, normal bowel sounds - Integumentary Integumentary: Present: clear, warm, dry - Neurologic Neurologic: other (Awake,confused, residual left sided weaness from prev stroke) Results - Labs CBC & Chem 7: 08/23/19 13:52 08/23/19 03:46 Labs: Laboratory Last Values WBC 12.2 K/mm3 (4.5-11.0) H 08/23/19 03:46 RBC 2.73 M/mm3 (3.65-5.03) L 08/23/19 03:46 Hgb 7.0 gm/dl (11.8-15.2) L 08/23/19 03:46 Hct 21.5 % (35.5-45.6) L 08/23/19 03:46 MCV 79 fl (84-94) L 08/23/19 03:46 MCH 26 pg (28-32) L 08/23/19 03:46 MCHC 33 % (32-34) 08/23/19 03:46 RDW 24.9 % (13.2-15.2) H 08/23/19 03:46 Plt Count 390 K/mm3 (140-440) 08/23/19 03:46 Lymph % (Auto) 6.9 % (13.4-35.0) L 08/23/19 03:46 [place] % (Auto) 11.4 % (0.0-7.3) H 08/23/19 03:46 Eos % (Auto) 0.0 % (0.0-4.3) 08/23/19 03:46 Baso % (Auto) 0.1 % (0.0-1.8) 08/23/19 03:46 Lymph # 0.8 K/mm3 (1.2-5.4) L 08/23/19 03:46 [place] # 1.4 K/mm3 (0.0-0.8) H 08/23/19 03:46 Eos # 0.0 K/mm3 (0.0-0.4) 08/23/19 03:46 Baso # 0.0 K/mm3 (0.0-0.1) 08/23/19 03:46 Seg Neutrophils % 81.6 % (40.0-70.0) H 08/23/19 03:46 Seg Neutrophils # 10.0 K/mm3 (1.8-7.7) H 08/23/19 03:46 PT 23.1 Sec. (12.2-14.9) H 08/22/19 12:39 INR 2.10 (0.87-1.13) H 08/22/19 12:39 APTT 31.8 Sec. (24.2-36.6) 08/22/19 12:39 Sodium 160 mmol/L (137-145) H D 08/23/19 03:46 Potassium 3.4 mmol/L (3.6-5.0) L D 08/23/19 03:46 Chloride 121.8 mmol/L (98-107) H 08/23/19 03:46 Carbon Dioxide 22 mmol/L (22-30) D 08/23/19 03:46 Anion Gap 20 mmol/L 08/23/19 03:46 BUN 116 mg/dL (9-20) H 08/23/19 03:46 Creatinine 5.4 mg/dL (0.8-1.5) H D 08/23/19 03:46 Estimated GFR 11 ml/min 08/23/19 03:46 BUN/Creatinine Ratio 21 % 10/14/19 03:46 Glucose 209 mg/dL (75-100) H 08/23/19 03:46 Lactic Acid 1.60 mmol/L (0.7-2.0) 08/22/19 23:07 Calcium 8.6 mg/dL (8.4-10.2) 08/23/19 03:46 Magnesium 3.50 mg/dL (1.7-2.3) H 08/22/19 12:39 Total Bilirubin 0.30 mg/dL (0.1-1.2) 08/22/19 12:39 Direct Bilirubin < 0.2 mg/dL (0-0.2) 08/22/19 12:39 Indirect Bilirubin 0.1 mg/dL 08/22/19 12:39 AST 13 units/L (5-40) 08/22/19 12:39 ALT 9 units/L (7-56) 08/22/19 12:39 Alkaline Phosphatase 136 units/L (35-129) H 08/22/19 12:39 Ammonia 267.0 umol/L (25-60) H 08/22/19 12:39 Troponin T < 0.010 ng/mL (0.00-0.029) 08/22/19 12:39 NT-Pro-B Natriuret Pep 1788 pg/mL (0-900) H 08/22/19 12:39 Total Protein 7.2 g/dL (6.3-8.2) 08/22/19 12:39 Albumin 3.0 g/dL (3.9-5) L 08/22/19 12:39 Albumin/Globulin Ratio 0.7 % 08/22/19 12:39 Lipase 18 units/L (13-60) 08/22/19 12:39 Urine Color Yellow (Yellow) 08/22/19 15:12 Urine Turbidity Clear (Clear) 08/22/19 15:12 Urine pH 6.0 (5.0-7.0) 08/22/19 15:12 Ur Specific [place] 1.011 (1.003-1.030) 08/22/19 15:12 Urine Protein <15 mg/dl mg/dL (Negative) 08/22/19 15:12 Urine Glucose (UA) Neg mg/dL (Negative) 08/22/19 15:12 Urine Ketones Neg mg/dL (Negative) 08/22/19 15:12 Urine Blood Lg (Negative) 08/22/19 15:12 Urine Nitrite Neg (Negative) 08/22/19 15:12 Urine Bilirubin Neg (Negative) 08/22/19 15:12 Urine Urobilinogen < 2.0 mg/dL (<2.0) 08/22/19 15:12 Ur Leukocyte Esterase Mod (Negative) 08/22/19 15:12 Urine WBC (Auto) 22.0 /HPF (0.0-6.0) H 08/22/19 15:12 Urine RBC (Auto) > 182.0 /HPF (0.0-6.0) 08/22/19 15:12 Urine Bacteria (Auto) 1+ /HPF (Negative) 08/22/19 15:12 Urine Mucus Few /HPF 08/22/19 15:12 Blood Type O POSITIVE 08/22/19 12:39 Antibody Screen Negative 08/22/19 12:39 Active Medications - Current Medications Current Medications: Generic Name Dose Route Start Last Admin Trade Name Freq PRN Reason Stop Dose Admin Hydromorphone HCl 0.25 mg 08/22/19 21:17 08/23/19 10:22 Dilaudid IV 0.25 mg Q3H PRN Administration Pain, Moderate (4-6) Ceftriaxone Sodium 1 gm in 50 mls @ 100 mls/hr 08/22/19 22:00 08/22/19 23:08 Rocephin/Ns 1 Gm/50 Ml IV 100 mls/hr Q24HR@2200 KJ Administration Protocol Potassium Chloride 40 meq/ 1,020 mls @ 75 mls/hr 08/23/19 05:30 08/23/19 06:04 Dextrose IV 75 mls/hr DIRECT KJ Administration Pantoprazole Sodium 80 mg/ 100 mls @ 10 mls/hr 08/23/19 07:00 08/23/19 07:43 Sodium Chloride IV 8 mg/hr DIRECT KJ 10 mls/hr Administration 8 MG/HR Octreotide Acetate 500 mcg/ 101 mls @ 5.05 mls/hr 08/23/19 12:00 Sodium Chloride IV TITR KJ Protocol 25 MCG/HR Lactulose 200 gm 08/23/19 07:00 Cephulac FL Q6H KJ Sodium Chloride 10 ml 08/22/19 22:00 08/22/19 23:09 Sodium Chloride Flush Syringe 10 Ml IV 10 ml BID KJ Administration Sodium Chloride 10 ml 08/22/19 21:11 Sodium Chloride Flush Syringe 10 Ml IV PRN PRN LINE FLUSH
[2019-08-23] MEDS: OCTREOTIDE 500 MCG in SODIUM CHLORIDE 0.9% 100 ML IV SCH (12:38)
[2019-08-23 14:01] LABS: Hematocrit 23.6 % (35.5-45.6); Hemoglobin 7.5 gm/dl (11.8-15.2)
[2019-08-23] MEDS ORDERED: PHYTONADIONE 10 MG/1 ML (ADULT ONLY)*INJECTION SUB-Q ONE (14:56)
--- NOTE | 2019-08-23 15:06 | Consultation ---
History of Present Illness Consult date: 08/23/19 Requesting physician: WILLY FELIZ Reason for consult: other (UGIB) History of present illness: 64 yo admitted with abd distension, episode of hematemesis after NGT placement, melena this AM witnessed personally by myself, altered mentation. He cannot give history and can only tell me his name. No reports of fevers, SOB, wheezing, chest pain, cough. Active Medications Hydromorphone HCl (Dilaudid) 0.25 mg IV Q3H PRN PRN Reason: Pain, Moderate (4-6) Last Admin: 08/23/19 10:22 Dose: 0.25 mg Documented by: Ceftriaxone Sodium (Rocephin/Ns 1 Gm/50 Ml) 1 gm in 50 mls @ 100 mls/hr IV Q24HR@2200 KJ; Protocol Last Admin: 08/22/19 23:08 Dose: 100 mls/hr Documented by: Potassium Chloride 40 meq/ (Dextrose) 1,020 mls @ 75 mls/hr IV DIRECT KJ Last Admin: 08/23/19 06:04 Dose: 75 mls/hr Documented by: Pantoprazole Sodium 80 mg/ (Sodium Chloride) 100 mls @ 10 mls/hr IV DIRECT KJ Last Admin: 08/23/19 07:43 Dose: 8 mg/hr, 10 mls/hr Documented by: Octreotide Acetate 500 mcg/ (Sodium Chloride) 101 mls @ 5.05 mls/hr IV TITR KJ; Protocol Last Admin: 08/23/19 12:38 Dose: 25 mcg/hr, 5.05 mls/hr Documented by: Lactulose (Cephulac) 200 gm MS Q6H KJ Last Admin: 08/23/19 07:00 Dose: 200 gm Documented by: Phytonadione (Vitamin K (Adult Only)) 10 mg SUB-Q ONCE ONE Stop: 08/23/19 14:57 Sodium Chloride (Sodium Chloride Flush Syringe 10 Ml) 10 ml IV BID KJ Last Admin: 08/23/19 10:00 Dose: 10 ml Documented by: Sodium Chloride (Sodium Chloride Flush Syringe 10 Ml) 10 ml IV PRN PRN PRN Reason: LINE FLUSH Past History Past Medical History: CAD, GERD, hypertension, liver disease (cirrhosis w/ EV), stroke, other Past Surgical History: appendectomy, cholecystectomy, bowel surgery (intestinal gangrene; spleen), Other (left BKA; pacemaker) Social history: full code, other (snf resident). denies: smoking, alcohol abuse, prescription drug abuse, IV drug use Medications and Allergies Allergies Allergy/AdvReac Type Severity Reaction Status Date / Time No Known Allergies Allergy Unverified 07/11/13 08:29 Home Medications Medication Instructions Recorded Confirmed Last Taken Type Apixaban [Eliquis] 5 mg PO BID 08/22/19 08/22/19 Unknown History Ascorbic Acid [Vitamin C] 500 mg PO Q12H 08/22/19 08/22/19 Unknown History AtorvaSTATin [Lipitor] 40 mg PO QHS 08/22/19 08/22/19 Unknown History Carvedilol [Coreg] 6.25 mg PO BID 08/22/19 08/22/19 Unknown History Dicyclomine [Bentyl] 20 mg PO QID PRN 08/22/19 08/22/19 Unknown History Docusate Sodium [Colace] 100 mg PO BID 08/22/19 08/22/19 Unknown History Flomax 0.4 mg PO QHS 08/22/19 08/22/19 Unknown History Folic Acid [Folvite] 1 mg PO QDAY 08/22/19 08/22/19 Unknown History HYDROcodone/APAP 5-325 [[place] 1 each PO Q6HR PRN 08/22/19 08/22/19 Unknown History 5/325] Ibuprofen [Motrin] 600 mg PO Q8H PRN 08/22/19 08/22/19 Unknown History Lisinopril [Zestril TAB] 10 mg PO QDAY 08/22/19 08/22/19 Unknown History Loperamide [Imodium] 2 mg PO BID PRN 08/22/19 08/22/19 Unknown History Magnesium Hydroxide [Milk of 400 mg PO Q24HR PRN 08/22/19 08/22/19 Unknown History Magnesia] Melatonin 3 mg PO QHS 08/22/19 08/22/19 Unknown History Multivit with Minerals No.55 1 tab PO DAILY 08/22/19 08/22/19 Unknown History Pantoprazole [Protonix] 40 mg PO QDAY 08/22/19 08/22/19 Unknown History Sennosides/Docusate Sodium [Senna 1 each PO DAILY 08/22/19 08/22/19 Unknown History Plus Tablet] diphenhydrAMINE [Benadryl CAP] 25 mg PO Q6HR PRN 08/22/19 08/22/19 Unknown Hist ory Active Meds: Active Medications Hydromorphone HCl (Dilaudid) 0.25 mg IV Q3H PRN PRN Reason: Pain, Moderate (4-6) Last Admin: 08/23/19 10:22 Dose: 0.25 mg Documented by: Ceftriaxone Sodium (Rocephin/Ns 1 Gm/50 Ml) 1 gm in 50 mls @ 100 mls/hr IV Q24HR@2200 KJ; Protocol Last Admin: 08/22/19 23:08 Dose: 100 mls/hr Documented by: Potassium Chloride 40 meq/ (Dextrose) 1,020 mls @ 75 mls/hr IV DIRECT KJ Last Admin: 08/23/19 06:04 Dose: 75 mls/hr Documented by: Pantoprazole Sodium 80 mg/ (Sodium Chloride) 100 mls @ 10 mls/hr IV DIRECT KJ Last Admin: 08/23/19 07:43 Dose: 8 mg/hr, 10 mls/hr Documented by: Octreotide Acetate 500 mcg/ (Sodium Chloride) 101 mls @ 5.05 mls/hr IV TITR KJ; Protocol Last Admin: 08/23/19 12:38 Dose: 25 mcg/hr, 5.05 mls/hr Documented by: Lactulose (Cephulac) 200 gm MS Q6H KJ Last Admin: 08/23/19 07:00 Dose: 200 gm Documented by: Phytonadione (Vitamin K (Adult Only)) 10 mg SUB-Q ONCE ONE Stop: 08/23/19 14:57 Sodium Chloride (Sodium Chloride Flush Syringe 10 Ml) 10 ml IV BID KJ Last Admin: 08/23/19 10:00 Dose: 10 ml Documented by: Sodium Chloride (Sodium Chloride Flush Syringe 10 Ml) 10 ml IV PRN PRN PRN Reason: LINE FLUSH Review of Systems All systems: negative Physical Examination Vital signs: Vital Signs Pulse Resp BP Pulse Ox 70 14 153/66 92 08/22/19 11:45 08/22/19 11:45 08/22/19 11:45 08/22/19 11:45 Vital Signs - 24 hr 08/22/19 08/22/19 08/22/19 15:15 15:30 15:45 Temperature Pulse Rate 91 H 91 H 83 Pulse Rate [ From Monitor] Respiratory 17 17 15 Rate Blood Pressure 185/73 177/79 174/73 Blood Pressure [Right] O2 Sat by Pulse 96 97 96 Oximetry 08/22/19 08/22/19 08/22/19 16:00 16:31 17:00 Temperature Pulse Rate 81 94 H 88 Pulse Rate [ From Monitor] Respiratory 14 19 16 Rate Blood Pressure 154/72 176/86 145/68 Blood Pressure [Right] O2 Sat by Pulse 96 98 96 Oximetry 08/22/19 08/22/19 08/22/19 17:30 18:00 18:30 Temperature Pulse Rate 93 H 97 H 103 H Pulse Rate [ From Monitor] Respiratory 16 16 20 Rate Blood Pressure 156/78 160/76 168/79 Blood Pressure [Right] O2 Sat by Pulse 97 100 97 Oximetry 08/22/19 08/22/19 08/22/19 19:26 19:30 20:00 Temperature 98.8 F Pulse Rate 114 H 103 H 104 H Pulse Rate [ From Monitor] Respiratory 20 18 18 Rate Blood Pressure 161/82 147/77 Blood Pressure 167/86 [Right] O2 Sat by Pulse 99 98 98 Oximetry 08/22/19 08/22/19 08/22/19 20:17 20:21 20:30 Temperature Pulse Rate 107 H 99 H 105 H Pulse Rate [ From Monitor] Respiratory 18 15 18 Rate Blood Pressure 159/82 159/82 146/75 Blood Pressure [Right] O2 Sat by Pulse 99 98 98 Oximetry 08/22/19 08/22/19 08/22/19 20:41 21:00 21:24 Temperature Pulse Rate 118 H Pulse Rate [ From Monitor] Respiratory 22 24 16 Rate Blood Pressure 146/75 Blood Pressure [Right] O2 Sat by Pulse 99 Oximetry 08/22/19 08/22/19 08/22/19 21:31 21:41 21:51 Temperature Pulse Rate 101 H 102 H 111 H Pulse Rate [ From Monitor] Respiratory 15 16 21 Rate Blood Pressure 141/80 141/80 141/80 Blood Pressure [Right] O2 Sat by Pulse 97 97 98 Oximetry 08/22/19 08/22/19 08/22/19 22:00 22:11 22:21 Temperature Pulse Rate 105 H 98 H 105 H Pulse Rate [ From Monitor] Respiratory 16 13 27 H Rate Blood Pressure 143/77 143/77 141/80 Blood Pressure [Right] O2 Sat by Pulse 97 98 97 Oximetry 08/22/19 08/22/19 08/22/19 22:31 22:41 22:51 Temperature Pulse Rate 105 H 98 H Pulse Rate [ From Monitor] Respiratory 23 34 H 32 H Rate Blood Pressure 141/80 141/80 141/80 Blood Pressure [Right] O2 Sat by Pulse 97 98 98 Oximetry 08/22/19 08/22/19 08/22/19 23:00 23:11 23:21 Temperature Pulse Rate 105 H 106 H 104 H Pulse Rate [ From Monitor] Respiratory 23 22 31 H Rate Blood Pressure 154/76 154/76 154/76 Blood Pressure [Right] O2 Sat by Pulse 99 100 99 Oximetry 08/22/19 08/22/19 08/22/19 23:31 23:41 23:45 Temperature 100 F H Pulse Rate 106 H 118 H Pulse Rate [ From Monitor] Respiratory 24 22 Rate Blood Pressure 154/76 154/76 Blood Pressure [Right] O2 Sat by Pulse 99 98 Oximetry 08/22/19 08/23/19 08/23/19 23:51 00:01 00:11 Temperature Pulse Rate 126 H 123 H 105 H Pulse Rate [ From Monitor] Respiratory 22 23 15 Rate Blood Pressure 154/76 176/89 176/89 Blood Pressure [Right] O2 Sat by Pulse 99 95 97 Oximetry 08/23/19 08/23/19 08/23/19 00:20 00:31 00:40 Temperature Pulse Rate 100 H 102 H 112 H Pulse Rate [ From Monitor] Respiratory 16 16 28 H Rate Blood Pressure 141/80 176/89 168/78 Blood Pressure [Right] O2 Sat by Pulse 98 98 97 Oximetry 08/23/19 08/23/19 08/23/19 00:51 01:00 01:30 Temperature Pulse Rate 102 H 102 H 99 H Pulse Rate [ 100 H From Monitor] Respiratory 17 17 14 Rate Blood Pressure 176/89 118/64 108/58 Blood Pressure [Right] O2 Sat by Pulse 96 93 95 Oximetry 08/23/19 08/23/19 08/23/19 02:00 02:31 03:00 Temperature Pulse Rate 102 H 122 H 103 H Pulse Rate [ 100 H From Monitor] Respiratory 21 22 18 Rate Blood Pressure 145/61 177/79 119/68 Blood Pressure [Right] O2 Sat by Pulse 99 98 92 Oximetry 08/23/19 08/23/19 08/23/19 03:30 04:00 04:30 Temperature 98.5 F Pulse Rate 99 H 98 H 96 H Pulse Rate [ From Monitor] Respiratory 16 18 19 Rate Blood Pressure 112/60 134/64 143/64 Blood Pressure [Right] O2 Sat by Pulse 95 96 86 Oximetry 08/23/19 08/23/19 08/23/19 05:00 05:30 06:00 Temperature Pulse Rate 101 H 98 H 101 H Pulse Rate [ 100 H From Monitor] Respiratory 17 16 16 Rate Blood Pressure 166/80 158/71 164/77 Blood Pressure [Right] O2 Sat by Pulse 97 96 96 Oximetry 08/23/19 08/23/19 08/23/19 06:30 07:00 07:30 Temperature Pulse Rate 99 H 98 H 100 H Pulse Rate [ 96 H From Monitor] Respiratory 15 24 16 Rate Blood Pressure 162/77 156/70 169/72 Blood Pressure [Right] O2 Sat by Pulse 95 97 96 Oximetry 08/23/19 08/23/19 08/23/19 08:00 08:30 09:00 Temperature Pulse Rate 98 H 95 H 105 H Pulse Rate [ 96 H From Monitor] Respiratory 17 15 18 Rate Blood Pressure 169/77 148/70 172/78 Blood Pressure [Right] O2 Sat by Pulse 97 96 99 Oximetry 08/23/19 08/23/19 08/23/19 09:30 10:00 10:30 Temperature Pulse Rate 100 H 106 H 105 H Pulse Rate [ From Monitor] Respiratory 16 17 20 Rate Blood Pressure 173/81 180/85 178/85 Blood Pressure [Right] O2 Sat by Pulse 98 98 97 Oximetry 08/23/19 08/23/19 08/23/19 11:00 11:30 12:00 Temperature Pulse Rate 117 H 105 H 108 H Pulse Rate [ 105 H From Monitor] Respiratory 21 17 19 Rate Blood Pressure 178/85 187/80 186/90 Blood Pressure [Right] O2 Sat by Pulse 98 97 98 Oximetry 08/23/19 08/23/19 08/23/19 12:30 13:00 13:30 Temperature Pulse Rate 116 H 104 H Pulse Rate [ From Monitor] Respiratory 22 19 Rate Blood Pressure 199/104 199/104 180/81 Blood Pressure [Right] O2 Sat by Pulse 97 98 Oximetry 08/23/19 08/23/19 14:00 14:30 Temperature Pulse Rate 109 H 111 H Pulse Rate [ From Monitor] Respiratory 22 22 Rate Blood Pressure 177/86 182/82 Blood Pressure [Right] O2 Sat by Pulse 94 94 Oximetry General appearance: other (awake, confused, moans, critically ill) Eyes: non-icteric ENT: oropharynx dry Neck: supple Effort: normal Ascultation: Bilateral: clear Cardiovascular: other (tachy, RR; no mrg) Gastrointestinal: normoactive bowel sounds, soft, non-tender, non-distended Extremities: anasarca (2+ bilateral LE edema) non-focal exam other (unable to assess) Results - Laboratory Findings CBC and BMP: 08/23/19 13:52 08/23/19 03:46 PT/INR, D-dimer PT 23.1 Sec. (12.2-14.9) H 08/22/19 12:39 INR 2.10 (0.87-1.13) H 08/22/19 12:39 Abnormal lab findings: Abnormal Labs 08/22/19 08/22/19 08/22/19 12:14 12:39 12:39 WBC 13.0 H RBC 3.10 L Hgb 7.9 L Hct 26.7 L MCV MCH 26 L MCHC 30 L RDW 25.6 H Lymph % (Auto) 9.3 L [place] % (Auto) Lymph # [place] # Seg Neutrophils % 84.0 H Seg Neutrophils # 10.9 H PT 23.1 H INR 2.10 H Sodium Potassium 7.2 H* Chloride Carbon Dioxide 12 L BUN 195 H Creatinine 15.2 H Glucose 132 H Calcium 7.5 L Magnesium 3.50 H Alkaline Phosphatase 136 H Ammonia NT-Pro-B Natriuret Pep 1788 H Albumin 3.0 L Urine WBC (Auto) 08/22/19 08/22/19 08/22/19 12:39 15:12 18:13 WBC RBC Hgb Hct MCV MCH MCHC RDW Lymph % (Auto) [place] % (Auto) Lymph # [place] # Seg Neutrophils % Seg Neutrophils # PT INR Sodium 148 H D Potassium Chloride 107.1 H Carbon Dioxide 15 L BUN 173 H Creatinine 11.0 H Glucose 151 H Calcium 8.2 L Magnesium Alkaline Phosphatase Ammonia 267.0 H NT-Pro-B Natriuret Pep Albumin Urine WBC (Auto) 22.0 H 08/22/19 08/23/19 08/23/19 23:07 03:46 03:46 WBC 12.2 H RBC 2.73 L Hgb 7.7 L 7.0 L Hct 23.6 L 21.5 L MCV 79 L MCH 26 L MCHC RDW 24.9 H Lymph % (Auto) 6.9 L [place] % (Auto) 11.4 H Lymph # 0.8 L [place] # 1.4 H Seg Neutrophils % 81.6 H Seg Neutrophils # 10.0 H PT INR Sodium 160 H D Potassium 3.4 L D Chloride 121.8 H Carbon Dioxide BUN 116 H Creatinine 5.4 H D Glucose 209 H Calcium Magnesium Alkaline Phosphatase Ammonia NT-Pro-B Natriuret Pep Albumin Urine WBC (Auto) 08/23/19 13:52 WBC RBC Hgb 7.5 L Hct 23.6 L MCV MCH MCHC RDW Lymph % (Auto) [place] % (Auto) Lymph # [place] # Seg Neutrophils % Seg Neutrophils # PT INR Sodium Potassium Chloride Carbon Dioxide BUN Creatinine Glucose Calcium Magnesium Alkaline Phosphatase Ammonia NT-Pro-B Natriuret Pep Albumin Urine WBC (Auto) - Diagnostic Findings Chest x-ray: report reviewed, image reviewed (no acute findings) Assessment and Plan Imp: 1. Obstructive uropathy/urinary retention 2. LAVONNE 2/2 #1 3. Hyperkalemia 4. R/o UTI 5. UGIB 6. Cirrhosis 7. Acute blood loss anemia 8. Hepatic encephalopathy 9. Hypernatremia Rec: 1. [place] placed; renal function improving; he is having post-obstructive diuresis now, on hypotonic IVFs; monitor sodium per renal 2. Empiric Rocephin pending urine culture 3. Protonix/Octreotide drips; stop Eliquis; give Vit K; trend H/H, INR; for possible EGD 4. SCDs to LEs 5. Lactulose enemas 6. Updated daughter extensively re: his condition; per daughter his wishes were to be DNR/DNI and I asked her to sign the appropriate documents stating such, as his legal next of kin (along with his son) CCT 31 minutes
[2019-08-23] MEDS ORDERED: SODIUM CHLORIDE 0.9% 500 ML 500 ML IV ONE (15:55)
[2019-08-23] MEDS ORDERED: SODIUM CHLORIDE 0.9% 500 ML 500 ML ONE (19:48)
[2019-08-23] MEDS ORDERED: ACETAMINOPHEN 650 MG RECT SUPP PR ONE (22:33)
[2019-08-24] MEDS: POTASSIUM CHLORIDE 40 MEQ in DEXTROSE 5% IN WATER 1,000 ML IV SCH ×2 (02:17→15:00)
[2019-08-24] MEDS: cefTRIAXone/NS 1 GM/50 ML 1 GM/50 ML BAG IV SCH ×2 (02:17→21:54)
[2019-08-24] MEDS: PANTOPRAZOLE 80 MG in SODIUM CHLORIDE 0.9% 100 ML IV SCH ×2 (03:00→13:32)
[2019-08-24] MEDS: LACTULOSE ENEMA 1000 ML PR SCH ×4 (03:37→18:43)
[2019-08-24 04:37] LABS: Hematocrit 23.5 % (35.5-45.6); Hemoglobin 7.7 gm/dl (11.8-15.2); Mean Corpuscular HGB Conc 33 % (32-34); Mean Corpuscular Volume 79 fl (84-94); Platelet Count 482 K/mm3 (140-440); Red Blood Count 2.97 M/mm3 (3.65-5.03)
[2019-08-24 04:39] LABS: Red Cell Distribution Width 24.4 % (13.2-15.2)
[2019-08-24 04:41] LABS: Calcium 9.3 mg/dL (8.4-10.2)
[2019-08-24 04:42] LABS: INR 1.51 (0.87-1.13)
[2019-08-24 05:28] LABS: Basophils % (Manual) 0 % (0.0-1.8); Eosinophils % (Manual) 0 % (0.0-4.3); Total Cells Counted 100
[2019-08-24 05:29] LABS: Anisocytosis 2+; Hypochromasia 1+
[2019-08-24 05:30] LABS: Poikilocytosis 2+; Target Cells 2+
[2019-08-24 05:31] LABS: Platelet Estimate Consistent w Auto
[2019-08-24] MEDS: OCTREOTIDE 500 MCG in SODIUM CHLORIDE 0.9% 100 ML IV SCH (09:10)
[2019-08-24] MEDS: HYDROmorphone 1 MG/1 ML INJ IV PRN ×3 (09:11→21:02)
--- NOTE | 2019-08-24 09:31 | Progress Note ---
Assessment and Plan 1. Acute kidney injury: LAVONNE in the setting of obstructive uropathy =/- vasomotor insult. CT abdomen showed obstructive nephropathy. S/p ferguson catheter. Renal function is better. Monitor renal function. Avoid nephrotoxic agents. Meds dosage based on GFR. 2. FEN: Hypernatremia, D5W increased. One dose of Diuril today. Hyperkalemia, improved. Metabolic acidosis, improved. Monitor lytes. 3. GI bleed/hematemesis: H/o Esophageal varices. Octreotide drip. Followed by GI. 4. H/o cirrhosis. 5. Hepatic encephalopathy. 6. Acute blood loss Anemia: POA. 7. Hyperglycemia. Examination: General appearance: well-developed, appears stated age, no distress HEENT: ATNC, IBRAHIMA Neck: trachea midline Respiratory: Clear to Ascultation Heart: S1S2, regular, no murmur Gastrointestinal: normoactive bowel sounds, NT Integumentary: stasis changes R leg : Ferguson catheter Neurologic: able to move extremities, barely able to tell his name Musculoskeletal: L BKA Subjective Date of service: 08/24/19 Interval history: Patient was seen and examined at the bedside. Objective - Vital Signs Vital signs: Vital Signs - 12hr 08/23/19 08/23/19 08/23/19 21:52 22:00 22:22 Temperature 100.3 F H 100.3 F H Pulse Rate 103 H 110 H 103 H Respiratory 18 21 18 Rate Blood Pressure 135/66 186/72 135/66 O2 Sat by Pulse 93 92 93 Oximetry 08/23/19 08/23/19 08/23/19 22:30 22:52 23:00 Temperature 100.3 F H Pulse Rate 102 H 103 H 124 H Respiratory 18 18 26 H Rate Blood Pressure 152/64 135/66 170/83 O2 Sat by Pulse 93 93 93 Oximetry 08/23/19 08/23/19 08/23/19 23:02 23:15 23:22 Temperature 100.3 F H Pulse Rate 103 H Respiratory 26 H 20 18 Rate Blood Pressure 135/66 O2 Sat by Pulse 96 93 Oximetry 08/23/19 08/23/19 08/23/19 23:30 23:40 23:49 Temperature 100.3 F H Pulse Rate 103 H 108 H 103 H Respiratory 18 22 18 Rate Blood Pressure 135/66 135/66 135/66 O2 Sat by Pulse 93 93 93 Oximetry 08/24/19 08/24/19 08/24/19 00:00 00:30 01:00 Temperature 98.8 F Pulse Rate 103 H 106 H 126 H Respiratory 19 18 28 H Rate Blood Pressure 135/66 135/66 144/75 O2 Sat by Pulse 94 94 95 Oximetry 08/24/19 08/24/19 08/24/19 01:30 01:52 02:00 Temperature Pulse Rate 109 H 124 H Respiratory 20 24 Rate Blood Pressure 153/72 153/72 O2 Sat by Pulse 92 98 95 Oximetry 08/24/19 08/24/19 08/24/19 02:30 03:00 03:30 Temperature Pulse Rate 110 H 113 H 120 H Respiratory 23 26 H 29 H Rate Blood Pressure 144/75 144/75 O2 Sat by Pulse 93 96 94 Oximetry 08/24/19 08/24/19 08/24/19 04:00 04:15 04:30 Temperature Pulse Rate 123 H 119 H 119 H Respiratory 28 H 20 28 H Rate Blood Pressure 166/82 187/108 O2 Sat by Pulse 95 96 Oximetry 08/24/19 08/24/19 08/24/19 05:00 05:30 06:00 Temperature Pulse Rate 96 H 115 H 126 H Respiratory 16 25 H Rate Blood Pressure 142/58 142/58 142/58 O2 Sat by Pulse 94 Oximetry 08/24/19 08/24/19 08/24/19 06:10 06:30 07:00 Temperature Pulse Rate 126 H 108 H 122 H Respiratory 24 20 24 Rate Blood Pressure 142/58 167/85 O2 Sat by Pulse 97 95 96 Oximetry 08/24/19 08/24/19 07:30 08:00 Temperature 98.4 F Pulse Rate 123 H 114 H Respiratory 27 H 32 H Rate Blood Pressure 167/85 180/81 O2 Sat by Pulse 96 95 Oximetry - Lab 08/24/19 04:07 08/24/19 09:28 Most recent lab results Calcium 9.3 mg/dL (8.4-10.2) 08/24/19 04:07 Phosphorus 2.30 mg/dL (2.5-4.5) L 08/24/19 04:07 Magnesium 2.00 mg/dL (1.7-2.3) 08/24/19 04:07 Medications & Allergies - Medications Allergies/Adverse Reactions: Allergies No Known Allergies Allergy (Unverified 07/11/13 08:29) Home Medications: Home Medications Medication Instructions Recorded Confirmed Last Taken Type Apixaban [Eliquis] 5 mg PO BID 08/22/19 08/22/19 Unknown History Ascorbic Acid [Vitamin C] 500 mg PO Q12H 08/22/19 08/22/19 Unknown History AtorvaSTATin [Lipitor] 40 mg PO QHS 08/22/19 08/22/19 Unknown History Carvedilol [Coreg] 6.25 mg PO BID 08/22/19 08/22/19 Unknown History Dicyclomine [Bentyl] 20 mg PO QID PRN 08/22/19 08/22/19 Unknown History Docusate Sodium [Colace] 100 mg PO BID 08/22/19 08/22/19 Unknown History Flomax 0.4 mg PO QHS 08/22/19 08/22/19 Unknown History Folic Acid [Folvite] 1 mg PO QDAY 08/22/19 08/22/19 Unknown History HYDROcodone/APAP 5-325 [[place] 1 each PO Q6HR PRN 08/22/19 08/22/19 Unknown History 5/325] Ibuprofen [Motrin] 600 mg PO Q8H PRN 08/22/19 08/22/19 Unknown History Lisinopril [Zestril TAB] 10 mg PO QDAY 08/22/19 08/22/19 Unknown History Loperamide [Imodium] 2 mg PO BID PRN 08/22/19 08/22/19 Unknown History Magnesium Hydroxide [Milk of 400 mg PO Q24HR PRN 08/22/19 08/22/19 Unknown History Magnesia] Melatonin 3 mg PO QHS 08/22/19 08/22/19 Unknown History Multivit with Minerals No.55 1 tab PO DAILY 08/22/19 08/22/19 Unknown History Pantoprazole [Protonix] 40 mg PO QDAY 08/22/19 08/22/19 Unknown History Sennosides/Docusate Sodium [[place] 1 each PO DAILY 08/22/19 08/22/19 Unknown History Plus Tablet] diphenhydrAMINE [Benadryl CAP] 25 mg PO Q6HR PRN 08/22/19 08/22/19 Unknown History Active Medications: Generic Name Dose Route Start Last Admin Trade Name Freq PRN Reason Stop Dose Admin Hydromorphone HCl 0.25 mg 08/22/19 21:17 08/24/19 09:11 Dilaudid IV 0.25 mg Q3H PRN Administration Pain, Moderate (4-6) Ceftriaxone Sodium 1 gm in 50 mls @ 100 mls/hr 08/22/19 22:00 08/24/19 03:00 Rocephin/Ns 1 Gm/50 Ml IV Infused Q24HR@2200 KJ Infusion Protocol Potassium Chloride 40 meq/ 1,020 mls @ 125 mls/hr 08/23/19 05:30 08/24/19 08:00 Dextrose IV 125 mls/hr DIRECT KJ Infusion Pantoprazole Sodium 80 mg/ 100 mls @ 10 mls/hr 08/23/19 07:00 08/24/19 03:00 Sodium Chloride IV 8 mg/hr DIRECT KJ 10 mls/hr Administration 8 MG/HR Octreotide Acetate 500 mcg/ 101 mls @ 5.05 mls/hr 08/23/19 12:00 08/24/19 09:10 Sodium Chloride IV 25 mcg/hr TITR KJ 5.05 mls/hr Administration Protocol 25 MCG/HR Lactulose 200 gm 08/23/19 07:00 08/24/19 07:00 Cephulac GA 200 gm Q6H KJ Administration Sodium Chloride 10 ml 08/22/19 22:00 08/23/19 23:44 Sodium Chloride Flush Syringe 10 Ml IV 10 ml BID KJ Administration Sodium Chloride 10 ml 08/22/19 21:11 Sodium Chloride Flush Syringe 10 Ml IV PRN PRN LINE FLUSH
[2019-08-24] MEDS ORDERED: STERILE IV ONE (10:32)
[2019-08-24] MEDS ORDERED: POTASSIUM PHOSPHATE IV ONE (10:32)
[2019-08-24] MEDS ORDERED: WATER IV ONE (10:32)
[2019-08-24] MEDS ORDERED: POTASSIUM PHOSPHATE 30 MMOL in SODIUM CHLORIDE 0.9% 500 ML 500 ML IV ONE (11:00)
[2019-08-24] MEDS ORDERED: CHLOROTHIAZIDE 500 MG VIAL IV ONE (11:00)
--- NOTE | 2019-08-24 11:41 | Gastroenterology Progress Note ---
Assessment and Plan 1.GI bleed/hematemesis 2.hepatic encephalopathy 3.H/o cirrhosis w/ esophageal varices -plt WNL -INR 2.10=> 1.51 -ammonia-267 on admission now WNL (38) -abd CT reviewed (liver normal, mild ascites) -H/H 7.7/23.5- s/p 1 unit PRBCs yesterday -continue to monitor H/H and transfuse as needed -hold blood thinning medications -BMs overnight with continue dark/black stool which is now starting to resolve with stool becoming toe closing machine tender in color this am per nursing. No hematemesis. -last EGD 2015 showed grade I esophageal varices (not source of bleeding), complex hiatal hernia, and vascular lesion (?prolapsed hernia tissue, ?Gastric varices, ?GIST) in the stomach not amenable to endoscopic tx requiring embolization by IR. -will consider EGD based on progress once medically stable and electrolytes corrected (currently w/ hypernatremia- sodium 171)- available for emergent EGD if needed -Keep NPO for now -continue octreotide drip and protonix drip -continue lactulose and empiric antibiotics -continue to trend labs and supportive care -will follow 4.LAVONNE-nephrology following 5.Hyperkalemia 6.Obstructive Uropathy 7.Hydronephrosis Subjective Date of service: 08/24/19 Principal diagnosis: GI bleed Interval history: Patient remains in ICU. Noted to be w/o acute distress this am and more alert. BMs overnight with continued dark/black stool which is now becoming toe closing machine tender in color per nursing. No hematemesis overnight or this am. Objective - Constitutional Vitals: Temp Pulse Resp BP Pulse Ox 98.4 F 114 H 29 H 169/67 97 08/24/19 08:00 08/24/19 11:00 08/24/19 11:00 08/24/19 11:00 08/24/19 11:00 General appearance: no acute distress, other (remains in ICU) - Respiratory Respiratory effort: normal - Cardiovascular Rhythm: other (tachycardia) - Gastrointestinal General gastrointestinal: Present: soft, non-distended, normal bowel sounds - Neurologic Neurological: oriented to person - Labs CBC & Chem 7: 08/24/19 04:07 08/24/19 09:28 Labs: Laboratory Results - last 24 hr 08/22/19 08/23/1919 12:39 13:52 00:25 WBC RBC Hgb 7.5 L Hct 23.6 L MCV MCH MCHC RDW Plt Count [place] % (Auto) Add Manual Diff Total Counted Seg Neuts % (Manual) Band Neutrophils % Lymphocytes % (Manual) Reactive Lymphs % (Man) Monocytes % (Manual) Eosinophils % (Manual) Basophils % (Manual) Metamyelocytes % Myelocytes % Promyelocytes % Blast Cells % Nucleated RBC % Seg Neutrophils # Man Band Neutrophils # Lymphocytes # (Manual) Abs React Lymphs (Man) Monocytes # (Manual) Eosinophils # (Manual) Basophils # (Manual) Metamyelocytes # Myelocytes # Promyelocytes # Blast Cells # WBC Morphology Hypersegmented Neuts Hyposegmented Neuts Hypogranular Neuts Smudge Cells Toxic Granulation Toxic Vacuolation Dohle Bodies Pelger-Huet Anomaly Ramonita Rods Platelet Estimate Clumped Platelets Plt Clumps, EDTA Large Platelets Giant Platelets Platelet Satelliting Plt Morphology Comment RBC Morphology Dimorphic RBCs Polychromasia Hypochromasia Poikilocytosis Anisocytosis Microcytosis Macrocytosis Spherocytes Pappenheimer Bodies Sickle Cells Target Cells Tear Drop Cells Ovalocytes Helmet Cells [place] Bodies Yolo Rings [place] Cells Bite Cells Crenated Cell Elliptocytes Acanthocytes (Spur) Rouleaux Hemoglobin C Crystals Schistocytes Malaria parasites Noel Bodies Hem Pathologist Commnt PT INR Sodium Potassium Chloride Carbon Dioxide Anion Gap BUN Creatinine Estimated GFR BUN/Creatinine Ratio Glucose POC Glucose 181 H Calcium Phosphorus Magnesium Ammonia Blood Type O POSITIVE Antibody Screen Negative Crossmatch See Detail 08/24/19 08/24/19 08/24/19 04:07 04:07 04:07 WBC 20.5 H RBC 2.97 L Hgb 7.7 L Hct 23.5 L MCV 79 L MCH 26 L MCHC 33 RDW 24.4 H Plt Count 482 H [place] % (Auto) Automatic Pattern Edger Add Manual Diff Complete Total Counted 100 Seg Neuts % (Manual) 92.0 H Band Neutrophils % 0 Lymphocytes % (Manual) 3.0 L Reactive Lymphs % (Man) 0 Monocytes % (Manual) 5.0 Eosinophils % (Manual) 0 Basophils % (Manual) 0 Metamyelocytes % 0 Myelocytes % 0 Promyelocytes % 0 Blast Cells % 0 Nucleated RBC % Not Reportable Seg Neutrophils # Man 18.9 H Band Neutrophils # 0.0 Lymphocytes # (Manual) 0.6 L Abs React Lymphs (Man) 0.0 Monocytes # (Manual) 1.0 H Eosinophils # (Manual) 0.0 Basophils # (Manual) 0.0 Metamyelocytes # 0.0 Myelocytes # 0.0 Promyelocytes # 0.0 Blast Cells # 0.0 WBC Morphology Not Reportable Hypersegmented Neuts Not Reportable Hyposegmented Neuts Not Reportable Hypogranular Neuts Not Reportable Smudge Cells Not Reportable Toxic Granulation Not Reportable Toxic Vacuolation Not Reportable Dohle Bodies Not Reportable Pelger-Huet Anomaly Not Reportable Ramonita Rods Not Reportable Platelet Estimate Consistent w auto Clumped Platelets Not Reportable Plt Clumps, EDTA Not Reportable Large Platelets Not Reportable Giant Platelets Not Reportable Platelet Satelliting Not Reportable Plt Morphology Comment Not Reportable RBC Morphology Not Reportable Dimorphic RBCs Not Reportable Polychromasia Not Reportable Hypochromasia 1+ Poikilocytosis 2+ Anisocytosis 2+ Microcytosis Not Reportable Macrocytosis Not Reportable Spherocytes Not Reportable Pappenheimer Bodies Not Reportable Sickle Cells Not Reportable Target Cells 2+ Tear Drop Cells Not Reportable Ovalocytes Not Reportable Helmet Cells Not Reportable [place] Bodies Not Reportable [place] Rings Not Reportable [place] Cells Not Reportable Bite Cells Not Reportable Crenated Cell Not Reportable Elliptocytes 1+ Acanthocytes (Spur) Not Reportable Rouleaux Not Reportable Hemoglobin C Crystals Not Reportable Schistocytes Not Reportable Malaria parasites Not Reportable Noel Bodies Not Reportable Hem Pathologist Commnt No PT 17.8 H INR 1.51 H Sodium 172 H* D Potassium 3.8 Chloride 131.1 H Carbon Dioxide 30 D Anion Gap 15 BUN 44 H Creatinine 1.4 D Estimated GFR 51 BUN/Creatinine Ratio 31 Glucose 175 H POC Glucose Calcium 9.3 Phosphorus 2.30 L Magnesium 2.00 Ammonia Blood Type Antibody Screen Crossmatch 08/24/19 08/24/19 08/24/19 04:07 09:28 11:36 WBC RBC Hgb Hct MCV MCH MCHC RDW Plt Count [place] % (Auto) Add Manual Diff Total Counted Seg Neuts % (Manual) Band Neutrophils % Lymphocytes % (Manual) Reactive Lymphs % (Man) Monocytes % (Manual) Eosinophils % (Manual) Basophils % (Manual) Metamyelocytes % Myelocytes % Promyelocytes % Blast Cells % Nucleated RBC % Seg Neutrophils # Man Band Neutrophils # Lymphocytes # (Manual) Abs React Lymphs (Man) Monocytes # (Manual) Eosinophils # (Manual) Basophils # (Manual) Metamyelocytes # Myelocytes # Promyelocytes # Blast Cells # WBC Morphology Hypersegmented Neuts Hyposegmented Neuts Hypogranular Neuts Smudge Cells Toxic Granulation Toxic Vacuolation Dohle Bodies Pelger-Huet Anomaly Ramonita Rods Platelet Estimate Clumped Platelets Plt Clumps, EDTA Large Platelets Giant Platelets Platelet Satelliting Plt Morphology Comment RBC Morphology Dimorphic RBCs Polychromasia Hypochromasia Poikilocytosis Anisocytosis Microcytosis Macrocytosis Spherocytes Pappenheimer Bodies Sickle Cells Target Cells Tear Drop Cells Ovalocytes Helmet Cells [place] Bodies Yolo Rings Freddy Cells Bite Cells Crenated Cell Elliptocytes Acanthocytes (Spur) Rouleaux Hemoglobin C Crystals Schistocytes Malaria parasites Noel Bodies Hem Pathologist Commnt PT INR Sodium 171 H* Potassium Chloride Carbon Dioxide Anion Gap BUN Creatinine Estimated GFR BUN/Creatinine Ratio Glucose POC Glucose 190 H Calcium Phosphorus Magnesium Ammonia 38.0 Blood Type Antibody Screen Crossmatch
--- NOTE | 2019-08-24 19:07 | Progress Note ---
Assessment and Plan Assessment and plan: Severe Hypernatremia On d5w Serial Sodium check Acute kidney injury. Admitted to ICU Nephrology managing Cr improving 5.4 from 15.2 on admission Hyperkalemia Now resolved GI bleed/hematemesis GI following Transfuse 1 unit PRBC History of varices Octreotide drip Protonix drip GI following Anemia due to acute blood loss Transfuse 1 unit prbc Acute hepatic encephalopathy, metabolic encephalopathy Neurochecks Hydronephrosis outpatient urology eval Full code status Poor prognosis Per documentation brought in, patient is a DNR, adjusted in chart. The high probability of a clinically significant, sudden or life threatening deterioration of the [Neurology, nephrology, gi] system(s) required my full and direct attention, intervention and personal management. The aggregate critical care time was [40] minutes. This time is in addition to time spent performing reported procedures but includes the following: [x] Data Review and interpretation [x] Patient assessment and monitoring of vital signs [x] Documentation [x] Medication orders and management History Interval history: Patient seen and examined, resting comfortable, mental status per family is improving but not quite at baseline. No other adverse event noted Hospitalist Physical - Physical exam Narrative exam: General appearance: Present: no acute distress, Confused, ?baseline - EENT ENT: hearing intact - Neck Neck: Present: supple, normal ROM - Respiratory Respiratory effort: normal Respiratory: bilateral: CTA - Cardiovascular Rhythm: regular Heart Sounds: Present: S1 & S2 - Extremities Extremity abnormal: other (Left BKA) - Abdominal General gastrointestinal: soft, non-tender, distended, normal bowel sounds - Integumentary Integumentary: Present: clear, warm, dry - Neurologic Neurologic: other (Awake,confused, residual left sided weaness from prev stroke) ON Restraints for safety - Constitutional Vitals: Temp Pulse Resp BP Pulse Ox 98.9 F 113 H 22 170/80 97 08/24/19 12:00 08/24/19 18:30 08/24/19 18:30 08/24/19 18:30 08/24/19 18:30 General appearance: Present: no acute distress Results - Labs CBC & Chem 7: 08/25/19 05:02 08/25/19 09:58 Labs: Laboratory Last Values WBC 20.5 K/mm3 (4.5-11.0) H 08/24/19 04:07 RBC 2.97 M/mm3 (3.65-5.03) L 08/24/19 04:07 Hgb 7.7 gm/dl (11.8-15.2) L 08/24/19 04:07 Hct 23.5 % (35.5-45.6) L 08/24/19 04:07 MCV 79 fl (84-94) L 08/24/19 04:07 MCH 26 pg (28-32) L 08/24/19 04:07 MCHC 33 % (32-34) 08/24/19 04:07 RDW 24.4 % (13.2-15.2) H 08/24/19 04:07 Plt Count 482 K/mm3 (140-440) H 08/24/19 04:07 Lymph % (Auto) 6.9 % (13.4-35.0) L 08/23/19 03:46 [place] % (Auto) Staff Internist Office Based Only 08/24/19 04:07 Eos % (Auto) 0.0 % (0.0-4.3) 08/23/19 03:46 Baso % (Auto) 0.1 % (0.0-1.8) 08/23/19 03:46 Lymph # 0.8 K/mm3 (1.2-5.4) L 08/23/19 03:46 [place] # 1.4 K/mm3 (0.0-0.8) H 08/23/19 03:46 Eos # 0.0 K/mm3 (0.0-0.4) 08/23/19 03:46 Baso # 0.0 K/mm3 (0.0-0.1) 08/23/19 03:46 Add Manual Diff Complete 08/24/19 04:07 Total Counted 100 08/24/19 04:07 Seg Neutrophils % 81.6 % (40.0-70.0) H 08/23/19 03:46 Seg Neuts % (Manual) 92.0 % (40.0-70.0) H 08/24/19 04:07 Band Neutrophils % 0 % 08/24/19 04:07 Lymphocytes % (Manual) 3.0 % (13.4-35.0) L 08/24/19 04:07 Reactive Lymphs % (Man) 0 % 08/24/19 04:07 Monocytes % (Manual) 5.0 % (0.0-7.3) 08/24/19 04:07 Eosinophils % (Manual) 0 % (0.0-4.3) 08/24/19 04:07 Basophils % (Manual) 0 % (0.0-1.8) 08/24/19 04:07 Metamyelocytes % 0 % 08/24/19 04:07 Myelocytes % 0 % 08/24/19 04:07 Promyelocytes % 0 % 08/24/19 04:07 Blast Cells % 0 % 08/24/19 04:07 Nucleated RBC % Not Reportable 08/24/19 04:07 Seg Neutrophils # 10.0 K/mm3 (1.8-7.7) H 08/23/19 03:46 Seg Neutrophils # Man 18.9 K/mm3 (1.8-7.7) H 08/24/19 04:07 Band Neutrophils # 0.0 K/mm3 08/24/19 04:07 Lymphocytes # (Manual) 0.6 K/mm3 (1.2-5.4) L 08/24/19 04:07 Abs React Lymphs (Man) 0.0 K/mm3 08/24/19 04:07 Monocytes # (Manual) 1.0 K/mm3 (0.0-0.8) H 08/24/19 04:07 Eosinophils # (Manual) 0.0 K/mm3 (0.0-0.4) 08/24/19 04:07 Basophils # (Manual) 0.0 K/mm3 (0.0-0.1) 08/24/19 04:07 Metamyelocytes # 0.0 K/mm3 08/24/19 04:07 Myelocytes # 0.0 K/mm3 08/24/19 04:07 Promyelocytes # 0.0 K/mm3 08/24/19 04:07 Blast Cells # 0.0 K/mm3 08/24/19 04:07 WBC Morphology Not Reportable 08/24/19 04:07 Hypersegmented Neuts Not Reportable 08/24/19 04:07 Hyposegmented Neuts Not Reportable 08/24/19 04:07 Hypogranular Neuts Not Reportable 08/24/19 04:07 Smudge Cells Not Reportable 08/24/19 04:07 Toxic Granulation Not Reportable 08/24/19 04:07 Toxic Vacuolation Not Reportable 08/24/19 04:07 Dohle Bodies Not Reportable 08/24/19 04:07 Pelger-Huet Anomaly Not Reportable 08/24/19 04:07 Ramonita Rods Not Reportable 08/24/19 04:07 Platelet Estimate Consistent w auto 08/24/19 04:07 Clumped Platelets Not Reportable 08/24/19 04:07 Plt Clumps, EDTA Not Reportable 08/24/19 04:07 Large Platelets Not Reportable 08/24/19 04:07 Giant Platelets Not Reportable 08/24/19 04:07 Platelet Satelliting Not Reportable 08/24/19 04:07 Plt Morphology Comment Not Reportable 08/24/19 04:07 RBC Morphology Not Reportable 08/24/19 04:07 Dimorphic RBCs Not Reportable 08/24/19 04:07 Polychromasia Not Reportable 08/24/19 04:07 Hypochromasia 1+ 08/24/19 04:07 Poikilocytosis 2+ 08/24/19 04:07 Anisocytosis 2+ 08/24/19 04:07 Microcytosis Not Reportable 08/24/19 04:07 Macrocytosis Not Reportable 08/24/19 04:07 Spherocytes Not Reportable 08/24/19 04:07 Pappenheimer Bodies Not Reportable 08/24/19 04:07 Sickle Cells Not Reportable 08/24/19 04:07 Target Cells 2+ 08/24/19 04:07 Tear Drop Cells Not Reportable 08/24/19 04:07 Ovalocytes Not Reportable 08/24/19 04:07 Helmet Cells Not Reportable 08/24/19 04:07 [place] Bodies Not Reportable 08/24/19 04:07 [place] Rings Not Reportable 08/24/19 04:07 Freddy Cells Not Reportable 08/24/19 04:07 Bite Cells Not Reportable 08/24/19 04:07 Crenated Cell Not Reportable 08/24/19 04:07 Elliptocytes 1+ 08/24/19 04:07 Acanthocytes (Spur) Not Reportable 08/24/19 04:07 Rouleaux Not Reportable 08/24/19 04:07 Hemoglobin C Crystals Not Reportable 08/24/19 04:07 Schistocytes Not Reportable 08/24/19 04:07 Malaria parasites Not Reportable 08/24/19 04:07 Noel Bodies Not Reportable 08/24/19 04:07 Hem Pathologist Commnt No 08/24/19 04:07 PT 17.8 Sec. (12.2-14.9) H 08/24/19 04:07 INR 1.51 (0.87-1.13) H 08/24/19 04:07 APTT 31.8 Sec. (24.2-36.6) 08/22/19 12:39 Sodium 172 mmol/L (137-145) H* 08/24/19 13:18 Potassium 3.8 mmol/L (3.6-5.0) 08/24/19 04:07 Chloride 131.1 mmol/L (98-107) H 08/24/19 04:07 Carbon Dioxide 30 mmol/L (22-30) D 08/24/19 04:07 Anion Gap 15 mmol/L 08/24/19 04:07 BUN 44 mg/dL (9-20) H 08/24/19 04:07 Creatinine 1.4 mg/dL (0.8-1.5) D 08/24/19 04:07 Estimated GFR 51 ml/min 08/24/19 04:07 BUN/Creatinine Ratio 31 % 08/24/19 04:07 Glucose 175 mg/dL (75-100) H 08/24/19 04:07 POC Glucose 190 (70-105) H 08/24/19 11:36 Lactic Acid 1.60 mmol/L (0.7-2.0) 08/22/19 23:07 Calcium 9.3 mg/dL (8.4-10.2) 08/24/19 04:07 Phosphorus 2.30 mg/dL (2.5-4.5) L 08/24/19 04:07 Magnesium 2.00 mg/dL (1.7-2.3) 08/24/19 04:07 Total Bilirubin 0.30 mg/dL (0.1-1.2) 08/22/19 12:39 Direct Bilirubin < 0.2 mg/dL (0-0.2) 08/22/19 12:39 Indirect Bilirubin 0.1 mg/dL 08/22/19 12:39 AST 13 units/L (5-40) 08/22/19 12:39 ALT 9 units/L (7-56) 08/22/19 12:39 Alkaline Phosphatase 136 units/L (35-129) H 08/22/19 12:39 Ammonia 38.0 umol/L (25-60) 08/24/19 04:07 Troponin T < 0.010 ng/mL (0.00-0.029) 08/22/19 12:39 NT-Pro-B Natriuret Pep 1788 pg/mL (0-900) H 08/22/19 12:39 Total Protein 7.2 g/dL (6.3-8.2) 08/22/19 12:39 Albumin 3.0 g/dL (3.9-5) L 08/22/19 12:39 Albumin/Globulin Ratio 0.7 % 08/22/19 12:39 Lipase 18 units/L (13-60) 08/22/19 12:39 Urine Color Yellow (Yellow) 08/22/19 15:12 Urine Turbidity Clear (Clear) 08/22/19 15:12 Urine pH 6.0 (5.0-7.0) 08/22/19 15:12 Ur Specific [place] 1.011 (1.003-1.030) 08/22/19 15:12 Urine Protein <15 mg/dl mg/dL (Negative) 08/22/19 15:12 Urine Glucose (UA) Neg mg/dL (Negative) 08/22/19 15:12 Urine Ketones Neg mg/dL (Negative) 08/22/19 15:12 Urine Blood Lg (Negative) 08/22/19 15:12 Urine Nitrite Neg (Negative) 08/22/19 15:12 Urine Bilirubin Neg (Negative) 08/22/19 15:12 Urine Urobilinogen < 2.0 mg/dL (<2.0) 08/22/19 15:12 Ur Leukocyte Esterase Mod (Negative) 08/22/19 15:12 Urine WBC (Auto) 22.0 /HPF (0.0-6.0) H 08/22/19 15:12 Urine RBC (Auto) > 182.0 /HPF (0.0-6.0) 08/22/19 15:12 Urine Bacteria (Auto) 1+ /HPF (Negative) 08/22/19 15:12 Urine Mucus Few /HPF 08/22/19 15:12 Blood Type O POSITIVE 08/22/19 12:39 Antibody Screen Negative 08/22/19 12:39 Crossmatch See Detail 08/22/19 12:39 Active Medications - Current Medications Current Medications: Generic Name Dose Route Start Last Admin Trade Name Freq PRN Reason Stop Dose Admin Hydromorphone HCl 0.25 mg 08/22/19 21:17 08/24/19 12:44 Dilaudid IV 0.25 mg Q3H PRN Administration Pain, Moderate (4-6) Ceftriaxone Sodium 1 gm in 50 mls @ 100 mls/hr 08/22/19 22:00 08/24/19 03:00 Rocephin/Ns 1 Gm/50 Ml IV Infused Q24HR@2200 KJ Infusion Protocol Potassium Chloride 40 meq/ 1,020 mls @ 125 mls/hr 08/23/19 05:30 08/24/19 15:00 Dextrose IV 125 mls/hr DIRECT KJ Administration Pantoprazole Sodium 80 mg/ 100 mls @ 10 mls/hr 08/23/19 07:00 08/24/19 13:32 Sodium Chloride IV 8 mg/hr DIRECT KJ 10 mls/hr Administration 8 MG/HR Octreotide Acetate 500 mcg/ 101 mls @ 5.05 mls/hr 08/23/19 12:00 08/24/19 09:10 Sodium Chloride IV 25 mcg/hr TITR KJ 5.05 mls/hr Administration Protocol 25 MCG/HR Lactulose 200 gm 08/23/19 07:00 08/24/19 18:43 Cephulac VT 200 gm Q6H KJ Administration Sodium Chloride 10 ml 08/22/19 22:00 08/24/19 10:00 Sodium Chloride Flush Syringe 10 Ml IV 10 ml BID JK Administration Sodium Chloride 10 ml 08/22/19 21:11 Sodium Chloride Flush Syringe 10 Ml IV PRN PRN LINE FLUSH
[2019-08-24 19:57] LABS: Hematocrit 22.8 % (35.5-45.6); Hemoglobin 6.9 gm/dl (11.8-15.2)
[2019-08-24] MEDS ORDERED: DEXTROSE 5% IN WATER 1,000 ML IV SCH (22:00)
--- NOTE | 2019-08-24 23:14 | Progress Note ---
Assessment and Plan Imp: 1. Obstructive uropathy/urinary retention 2. LAVONNE 2/2 #1 3. Hyperkalemia 4. R/o UTI 5. UGIB 6. Cirrhosis 7. Acute blood loss anemia 8. Hepatic encephalopathy 9. Hypernatremia Rec: 1. [place] placed; renal function improving; he is having post-obstructive diuresis now, on hypotonic IVFs and will defer management of the same to renal 2. Empiric Rocephin pending urine culture 3. Protonix/Octreotide drips; stop Eliquis; gave Vit K; trend H/H, INR; for possible EGD 4. SCDs to LEs 5. Lactulose enemas 6. Updated daughter extensively on 08/23/19 re: his condition; per daughter his wishes were to be DNR/DNI and I asked her to sign the appropriate documents stating such, as his legal next of kin (along with his son) Subjective Date of service: 08/24/19 Principal diagnosis: GI bleed Interval history: No events. More alert having PICC placed when I came by. No obvious complaints. Active Medications Hydromorphone HCl (Dilaudid) 0.25 mg IV Q3H PRN PRN Reason: Pain, Moderate (4-6) Last Admin: 08/24/19 21:02 Dose: 0.25 mg Documented by: Ceftriaxone Sodium (Rocephin/Ns 1 Gm/50 Ml) 1 gm in 50 mls @ 100 mls/hr IV Q24HR@2200 KJ; Protocol Last Admin: 08/24/19 21:54 Dose: 100 mls/hr Documented by: Potassium Chloride 40 meq/ (Dextrose) 1,020 mls @ 125 mls/hr IV DIRECT KJ Last Infusion: 08/24/19 21:55 Dose: 0 mls/hr Documented by: Pantoprazole Sodium 80 mg/ (Sodium Chloride) 100 mls @ 10 mls/hr IV DIRECT KJ Last Admin: 08/24/19 13:32 Dose: 8 mg/hr, 10 mls/hr Documented by: Octreotide Acetate 500 mcg/ (Sodium Chloride) 101 mls @ 5.05 mls/hr IV TITR KJ; Protocol Last Admin: 08/24/19 09:10 Dose: 25 mcg/hr, 5.05 mls/hr Documented by: Dextrose (D5w) 1,000 mls @ 250 mls/hr IV DIRECT KJ Stop: 08/25/19 01:59 Last Admin: 08/24/19 21:54 Dose: 250 mls/hr Documented by: Lactulose (Cephulac) 200 gm DE Q6H KJ Last Admin: 08/24/19 18:43 Dose: 200 gm Documented by: Sodium Chloride (Sodium Chloride Flush Syringe 10 Ml) 10 ml IV BID KJ Last Admin: 08/24/19 10:00 Dose: 10 ml Documented by: Sodium Chloride (Sodium Chloride Flush Syringe 10 Ml) 10 ml IV PRN PRN PRN Reason: LINE FLUSH Objective Vital Signs - 12hr 08/24/19 08/24/19 08/24/19 11:30 12:00 12:30 Temperature 98.9 F Pulse Rate 100 H 94 H 138 H Pulse Rate [ 95 H From Monitor] Respiratory 20 16 35 H Rate Blood Pressure 169/67 146/68 146/68 O2 Sat by Pulse 96 98 Oximetry 08/24/19 08/24/19 08/24/19 13:00 13:30 14:00 Temperature Pulse Rate 112 H 107 H 109 H Pulse Rate [ From Monitor] Respiratory 25 H 18 19 Rate Blood Pressure 163/83 163/83 162/89 O2 Sat by Pulse 96 Oximetry 08/24/19 08/24/19 08/24/19 14:30 15:00 15:30 Temperature Pulse Rate 112 H 119 H 109 H Pulse Rate [ From Monitor] Respiratory 27 H 30 H 22 Rate Blood Pressure 162/89 183/95 162/89 O2 Sat by Pulse 95 95 96 Oximetry 08/24/19 08/24/19 08/24/19 16:00 16:30 17:00 Temperature Pulse Rate 124 H 105 H 115 H Pulse Rate [ 92 H From Monitor] Respiratory 18 24 52 H Rate Blood Pressure 179/93 179/93 168/83 O2 Sat by Pulse 96 96 96 Oximetry 08/24/19 08/24/19 08/24/19 17:30 18:00 18:30 Temperature Pulse Rate 107 H 104 H 113 H Pulse Rate [ From Monitor] Respiratory 28 H 20 22 Rate Blood Pressure 168/83 170/80 170/80 O2 Sat by Pulse 96 97 97 Oximetry 08/24/19 08/24/19 08/24/19 19:00 19:30 19:52 Temperature Pulse Rate 99 H 100 H Pulse Rate [ From Monitor] Respiratory 20 20 Rate Blood Pressure 170/80 137/67 O2 Sat by Pulse 97 97 96 Oximetry 08/24/19 08/24/19 08/24/19 20:00 20:20 20:30 Temperature 98.8 F Pulse Rate 102 H 125 H Pulse Rate [ From Monitor] Respiratory 21 24 Rate Blood Pressure 141/65 141/65 O2 Sat by Pulse 96 96 Oximetry 08/24/19 08/24/19 08/24/19 20:51 21:00 21:30 Temperature Pulse Rate 114 H 130 H Pulse Rate [ 91 H From Monitor] Respiratory 26 H 21 27 H Rate Blood Pressure 144/79 144/79 O2 Sat by Pulse 97 95 95 Oximetry 08/24/19 22:00 Temperature Pulse Rate 102 H Pulse Rate [ From Monitor] Respiratory 24 Rate Blood Pressure 144/79 O2 Sat by Pulse 96 Oximetry Constitutional: other (awake, confused, more alert) Eyes: non-icteric ENT: oropharynx dry Neck: supple Effort: normal Ascultation: Bilateral: clear Cardiovascular: other (tachy, RR; no mrg) Gastrointestinal: normoactive bowel sounds, soft, non-tender, non-distended Extremities: anasarca (2+ bilateral LE edema) Neurologic: non-focal exam Psychiatric: other (unable to assess) CBC and BMP: 08/24/19 19:31 08/24/19 19:31 ABG, PT/INR, D-dimer: PT/INR, D-dimer PT 17.8 Sec. (12.2-14.9) H 08/24/19 04:07 INR 1.51 (0.87-1.13) H 08/24/19 04:07 Abnormal lab findings: Abnormal Labs 08/22/19 08/22/19 08/22/19 12:14 12:39 12:39 WBC 13.0 H RBC 3.10 L Hgb 7.9 L Hct 26.7 L MCV MCH 26 L MCHC 30 L RDW 25.6 H Plt Count Lymph % (Auto) 9.3 L [place] % (Auto) Lymph # [place] # Seg Neutrophils % 84.0 H Seg Neuts % (Manual) Lymphocytes % (Manual) Seg Neutrophils # 10.9 H Seg Neutrophils # Man Lymphocytes # (Manual) Monocytes # (Manual) PT 23.1 H INR 2.10 H Sodium Potassium 7.2 H* Chloride Carbon Dioxide 12 L BUN 195 H Creatinine 15.2 H Glucose 132 H POC Glucose Calcium 7.5 L Phosphorus Magnesium 3.50 H Alkaline Phosphatase 136 H Ammonia NT-Pro-B Natriuret Pep 1788 H Albumin 3.0 L Urine WBC (Auto) Crossmatch 08/22/19 08/22/19 08/22/19 12:39 12:39 15:12 WBC RBC Hgb Hct MCV MCH MCHC RDW Plt Count Lymph % (Auto) [place] % (Auto) Lymph # [place] # Seg Neutrophils % Seg Neuts % (Manual) Lymphocytes % (Manual) Seg Neutrophils # Seg Neutrophils # Man Lymphocytes # (Manual) Monocytes # (Manual) PT INR Sodium Potassium Chloride Carbon Dioxide BUN Creatinine Glucose POC Glucose Calcium Phosphorus Magnesium Alkaline Phosphatase Ammonia 267.0 H NT-Pro-B Natriuret Pep Albumin Urine WBC (Auto) 22.0 H Crossmatch See Detail 08/22/19 08/22/19 08/23/19 18:13 23:07 03:46 WBC 12.2 H RBC 2.73 L Hgb 7.7 L 7.0 L Hct 23.6 L 21.5 L MCV 79 L MCH 26 L MCHC RDW 24.9 H Plt Count Lymph % (Auto) 6.9 L [place] % (Auto) 11.4 H Lymph # 0.8 L [place] # 1.4 H Seg Neutrophils % 81.6 H Seg Neuts % (Manual) Lymphocytes % (Manual) Seg Neutrophils # 10.0 H Seg Neutrophils # Man Lymphocytes # (Manual) Monocytes # (Manual) PT INR Sodium 148 H D Potassium Chloride 107.1 H Carbon Dioxide 15 L BUN 173 H Creatinine 11.0 H Glucose 151 H POC Glucose Calcium 8.2 L Phosphorus Magnesium Alkaline Phosphatase Ammonia NT-Pro-B Natriuret Pep Albumin Urine WBC (Auto) Crossmatch 08/23/19 08/23/19 08/24/19 03:46 13:52 00:25 WBC RBC Hgb 7.5 L Hct 23.6 L MCV MCH MCHC RDW Plt Count Lymph % (Auto) [place] % (Auto) Lymph # [place] # Seg Neutrophils % Seg Neuts % (Manual) Lymphocytes % (Manual) Seg Neutrophils # Seg Neutrophils # Man Lymphocytes # (Manual) Monocytes # (Manual) PT INR Sodium 160 H D Potassium 3.4 L D Chloride 121.8 H Carbon Dioxide BUN 116 H Creatinine 5.4 H D Glucose 209 H POC Glucose 181 H Calcium Phosphorus Magnesium Alkaline Phosphatase Ammonia NT-Pro-B Natriuret Pep Albumin Urine WBC (Auto) Crossmatch 08/24/19 08/24/19 08/24/19 04:07 04:07 04:07 WBC 20.5 H RBC 2.97 L Hgb 7.7 L Hct 23.5 L MCV 79 L MCH 26 L MCHC RDW 24.4 H Plt Count 482 H Lymph % (Auto) [place] % (Auto) Lymph # [place] # Seg Neutrophils % Seg Neuts % (Manual) 92.0 H Lymphocytes % (Manual) 3.0 L Seg Neutrophils # Seg Neutrophils # Man 18.9 H Lymphocytes # (Manual) 0.6 L Monocytes # (Manual) 1.0 H PT 17.8 H INR 1.51 H Sodium 172 H* D Potassium Chloride 131.1 H Carbon Dioxide BUN 44 H Creatinine Glucose 175 H POC Glucose Calcium Phosphorus 2.30 L Magnesium Alkaline Phosphatase Ammonia NT-Pro-B Natriuret Pep Albumin Urine WBC (Auto) Crossmatch 08/24/19 08/24/19 08/24/19 09:28 11:36 13:18 WBC RBC Hgb Hct MCV MCH MCHC RDW Plt Count Lymph % (Auto) [place] % (Auto) Lymph # [place] # Seg Neutrophils % Seg Neuts % (Manual) Lymphocytes % (Manual) Seg Neutrophils # Seg Neutrophils # Man Lymphocytes # (Manual) Monocytes # (Manual) PT INR Sodium 171 H* 172 H* Potassium Chloride Carbon Dioxide BUN Creatinine Glucose POC Glucose 190 H Calcium Phosphorus Magnesium Alkaline Phosphatase Ammonia NT-Pro-B Natriuret Pep Albumin Urine WBC (Auto) Crossmatch 08/24/19 08/24/19 08/24/19 16:44 19:31 19:31 WBC RBC Hgb 6.9 L Hct 22.8 L MCV MCH MCHC RDW Plt Count Lymph % (Auto) [place] % (Auto) Lymph # [place] # Seg Neutrophils % Seg Neuts % (Manual) Lymphocytes % (Manual) Seg Neutrophils # Seg Neutrophils # Man Lymphocytes # (Manual) Monocytes # (Manual) PT INR Sodium 170 H* Potassium Chloride Carbon Dioxide BUN Creatinine Glucose POC Glucose 203 H Calcium Phosphorus Magnesium Alkaline Phosphatase Ammonia NT-Pro-B Natriuret Pep Albumin Urine WBC (Auto) Crossmatch Chest x-ray: report reviewed, image reviewed
[2019-08-25] MEDS: PANTOPRAZOLE 80 MG in SODIUM CHLORIDE 0.9% 100 ML IV SCH (00:35)
[2019-08-25] MEDS: LACTULOSE ENEMA 1000 ML PR SCH ×4 (00:35→18:13)
[2019-08-25] MEDS: POTASSIUM CHLORIDE 40 MEQ in DEXTROSE 5% IN WATER 1,000 ML IV SCH ×3 (02:25→19:03)
[2019-08-25 05:30] LABS: Hemoglobin 6.7 gm/dl (11.8-15.2)
[2019-08-25 06:03] LABS: BUN/Creatinine Ratio 19; Blood Urea Nitrogen 23 mg/dL (9-20); Calcium 8.5 mg/dL (8.4-10.2); Hemolysis Index 84
[2019-08-25] MEDS: OCTREOTIDE 500 MCG in SODIUM CHLORIDE 0.9% 100 ML IV SCH (06:35)
[2019-08-25] MEDS ORDERED: SODIUM CHLORIDE 0.9% 500 ML 500 ML IV NR (09:30)
[2019-08-25] MEDS: CHLOROTHIAZIDE 500 MG VIAL IV SCH ×2 (10:12→22:45)
--- NOTE | 2019-08-25 10:16 | Progress Note ---
Assessment and Plan 1. Acute kidney injury: LAVONNE in the setting of obstructive uropathy =/- vasomotor insult. CT abdomen showed obstructive nephropathy. S/p ferguson catheter. Renal function is better. Monitor renal function. Avoid nephrotoxic agents. Meds dosage based on GFR. 2. FEN: Hypernatremia, continue IV D5W. Scheduled Diuril. ?DI. Urine lytes and Osm ordered. Hyperkalemia, improved. Metabolic acidosis, improved. Monitor lytes. 3. GI bleed/hematemesis: H/o Esophageal varices. Octreotide drip. Followed by GI. 4. H/o cirrhosis. 5. Hepatic encephalopathy. 6. Acute blood loss Anemia: POA. 7. Hyperglycemia. D/w his son and answered all questions. Examination: General appearance: well-developed, appears stated age, no distress, on restrains HEENT: ATNC, IBRAHIMA Neck: trachea midline Respiratory: Clear to Ascultation Heart: S1S2, regular, no murmur Gastrointestinal: normoactive bowel sounds, NT Integumentary: stasis changes R leg : Ferguson catheter Neurologic: able to move extremities, R sided weakness noted, barely able to tell his name Musculoskeletal: L BKA Subjective Date of service: 08/25/19 Principal diagnosis: GI bleed Interval history: Patient was seen and examined at the bedside. Son at the bedside. Objective - Vital Signs Vital signs: Vital Signs - 12hr 08/24/19 08/24/19 08/24/19 22:30 23:00 23:30 Temperature Pulse Rate 105 H 99 H 119 H Pulse Rate [ From Monitor] Respiratory 17 17 23 Rate Blood Pressure 182/82 182/82 144/68 O2 Sat by Pulse 96 95 96 Oximetry 08/25/19 08/25/19 08/25/19 00:00 00:27 00:30 Temperature 99.0 F Pulse Rate 101 H 99 H Pulse Rate [ 91 H From Monitor] Respiratory 26 H 18 Rate Blood Pressure 137/68 137/68 O2 Sat by Pulse 97 95 Oximetry 08/25/19 08/25/19 08/25/19 01:00 01:30 02:00 Temperature Pulse Rate 102 H 94 H 107 H Pulse Rate [ From Monitor] Respiratory 21 18 24 Rate Blood Pressure 148/74 148/74 152/81 O2 Sat by Pulse 96 97 96 Oximetry 08/25/19 08/25/19 08/25/19 02:30 03:00 03:30 Temperature Pulse Rate 105 H 114 H 121 H Pulse Rate [ From Monitor] Respiratory 22 24 23 Rate Blood Pressure 148/74 152/81 170/80 O2 Sat by Pulse 96 95 96 Oximetry 08/25/19 08/25/19 08/25/19 04:00 04:30 05:00 Temperature 98.3 F Pulse Rate 102 H 107 H 106 H Pulse Rate [ 100 H From Monitor] Respiratory 20 25 H 25 H Rate Blood Pressure 170/80 170/80 147/75 O2 Sat by Pulse 96 97 96 Oximetry 08/25/19 08/25/19 08/25/19 05:30 06:00 08:00 Temperature 99.2 F Pulse Rate 104 H 116 H Pulse Rate [ From Monitor] Respiratory 25 H 23 Rate Blood Pressure 147/75 147/75 O2 Sat by Pulse 95 96 Oximetry 08/25/19 08:04 Temperature Pulse Rate Pulse Rate [ From Monitor] Respiratory Rate Blood Pressure O2 Sat by Pulse 96 Oximetry - Lab 08/25/19 05:02 08/25/19 09:58 Most recent lab results Calcium 8.5 mg/dL (8.4-10.2) 08/25/19 05:02 Phosphorus 2.40 mg/dL (2.5-4.5) L 08/25/19 05:02 Magnesium 2.00 mg/dL (1.7-2.3) 08/24/19 04:07 Medications & Allergies - Medications Allergies/Adverse Reactions: Allergies No Known Allergies Allergy (Unverified 07/11/13 08:29) Home Medications: Home Medications Medication Instructions Recorded Confirmed Last Taken Type Apixaban [Eliquis] 5 mg PO BID 08/22/19 08/22/19 Unknown History Ascorbic Acid [Vitamin C] 500 mg PO Q12H 08/22/19 08/22/19 Unknown History AtorvaSTATin [Lipitor] 40 mg PO QHS 08/22/19 08/22/19 Unknown History Carvedilol [Coreg] 6.25 mg PO BID 08/22/19 08/22/19 Unknown History Dicyclomine [Bentyl] 20 mg PO QID PRN 08/22/19 08/22/19 Unknown History Docusate Sodium [Colace] 100 mg PO BID 08/22/19 08/22/19 Unknown History Flomax 0.4 mg PO QHS 08/22/19 08/22/19 Unknown History Folic Acid [Folvite] 1 mg PO QDAY 08/22/19 08/22/19 Unknown History HYDROcodone/APAP 5-325 [[place] 1 each PO Q6HR PRN 08/22/19 08/22/19 Unknown History 5/325] Ibuprofen [Motrin] 600 mg PO Q8H PRN 08/22/19 08/22/19 Unknown History Lisinopril [Zestril TAB] 10 mg PO QDAY 08/22/19 08/22/19 Unknown History Loperamide [Imodium] 2 mg PO BID PRN 08/22/19 08/22/19 Unknown History Magnesium Hydroxide [Milk of 400 mg PO Q24HR PRN 08/22/19 08/22/19 Unknown History Magnesia] Melatonin 3 mg PO QHS 08/22/19 08/22/19 Unknown History Multivit with Minerals No.55 1 tab PO DAILY 08/22/19 08/22/19 Unknown History Pantoprazole [Protonix] 40 mg PO QDAY 08/22/19 08/22/19 Unknown History Sennosides/Docusate Sodium [[place] 1 each PO DAILY 08/22/19 08/22/19 Unknown History Plus Tablet] diphenhydrAMINE [Benadryl CAP] 25 mg PO Q6HR PRN 08/22/19 08/22/19 Unknown History Active Medications: Generic Name Dose Route Start Last Admin Trade Name Freq PRN Reason Stop Dose Admin Chlorothiazide Sodium 500 mg 08/25/19 10:00 08/25/19 10:12 Diuril IV 500 mg BID KJ Administration Hydromorphone HCl 0.25 mg 08/22/19 21:17 08/24/19 21:02 Dilaudid IV 0.25 mg Q3H PRN Administration Pain, Moderate (4-6) Ceftriaxone Sodium 1 gm in 50 mls @ 100 mls/hr 08/22/19 22:00 08/24/19 21:54 Rocephin/Ns 1 Gm/50 Ml IV 100 mls/hr Q24HR@2200 KJ Administration Protocol Potassium Chloride 40 meq/ 1,020 mls @ 150 mls/hr 08/23/19 05:30 08/25/19 02:25 Dextrose IV 125 mls/hr DIRECT KJ Administration Pantoprazole Sodium 80 mg/ 100 mls @ 10 mls/hr 08/23/19 07:00 08/25/19 00:35 Sodium Chloride IV 8 mg/hr DIRECT KJ 10 mls/hr Administration 8 MG/HR Octreotide Acetate 500 mcg/ 101 mls @ 5.05 mls/hr 08/23/19 12:00 08/25/19 06:35 Sodium Chloride IV 25 mcg/hr TITR KJ 5.05 mls/hr Administration Protocol 25 MCG/HR Sodium Chloride 500 mls @ 0 mls/hr 08/25/19 09:30 Nacl 0.9% 500 Ml IV 08/25/19 17:00 ONCE NR As Directed Lactulose 200 gm 08/23/19 07:00 08/25/19 06:35 Cephulac [place] 200 gm Q6H KJ Administration Sodium Chloride 10 ml 08/22/19 22:00 08/25/19 10:12 Sodium Chloride Flush Syringe 10 Ml IV 10 ml BID KJ Administration Sodium Chloride 10 ml 08/22/19 21:11 Sodium Chloride Flush Syringe 10 Ml IV PRN PRN LINE FLUSH
--- NOTE | 2019-08-25 10:34 | Gastroenterology Progress Note ---
Assessment and Plan 1.GI bleed/hematemesis 2.hepatic encephalopathy 3.H/o cirrhosis w/ esophageal varices -plt WNL -INR 2.10=> 1.51 -ammonia-267 on admission now WNL (38) -abd CT reviewed (liver normal, mild ascites) -H/H 6.7/22.0-slight trend down (likely 2/2 dilution)- 2 units PRBCs pending transfusion -continue to monitor H/H and transfuse as needed -no active signs of bleeding overnight or this am (stool yellow/clear this am per nursing; no hematemesis) -last EGD 2015 showed grade I esophageal varices (not source of bleeding), complex hiatal hernia, and vascular lesion (?prolapsed hernia tissue, ?Gastric varices, ?GIST) in the stomach not amenable to endoscopic tx requiring embolization by IR. -EGD based on progress once medically stable and electrolytes corrected (currently w/ hypernatremia- sodium 166)- available for emergent EGD if needed -recommend LABOR SPECIALIST/swallow eval- if passes, okay to start on trial of PO -d/c protonix drip and transition to IV BID -continue octreotide drip today- once tolerating PO transition to nadalol -continue lactulose (d/c GA and transition to PO once able to tolerate) -continue empiric antibiotics -continue to trend labs and supportive care -will follow 4.LAVONNE-nephrology following 5.Hyperkalemia 6.Obstructive Uropathy 7.Hydronephrosis Subjective Date of service: 08/25/19 Principal diagnosis: GI bleed Interval history: Patient remains in ICU. No acute distress. Alert and more communicative this am. Family at bedside. No active signs of bleeding overnight or this am (stool liquids yellow/clear this am per nursing). Objective - Constitutional Vitals: Temp Pulse Resp BP Pulse Ox 99.2 F 116 H 23 147/75 96 08/25/19 08:00 08/25/19 06:00 08/25/19 06:00 08/25/19 06:00 08/25/19 08:04 General appearance: no acute distress - EENT Eyes: PERRL, EOM intact ENT: hearing intact - Respiratory Respiratory effort: normal - Cardiovascular Rhythm: other (tachycardia) - Gastrointestinal General gastrointestinal: Present: soft, non-distended, normal bowel sounds - Neurologic Neurological: other (alert, oriented to person) - Labs CBC & Chem 7: 08/25/19 05:02 08/25/19 09:58 Labs: Laboratory Results - last 24 hr 08/22/19 08/24/19 08/24/19 12:39 11:36 13:18 Hgb Hct Sodium 172 H* Potassium Chloride Carbon Dioxide Anion Gap BUN Creatinine Estimated GFR BUN/Creatinine Ratio Glucose POC Glucose 190 H Calcium Phosphorus Blood Type O POSITIVE Antibody Screen Negative Crossmatch See Detail 08/24/19 08/24/19 08/24/19 16:44 19:31 19:31 Hgb 6.9 L Hct 22.8 L Sodium 170 H* Potassium Chloride Carbon Dioxide Anion Gap BUN Creatinine Estimated GFR BUN/Creatinine Ratio Glucose POC Glucose 203 H Calcium Phosphorus Blood Type Antibody Screen Crossmatch 08/25/19 08/25/19 05:02 05:02 Hgb 6.7 L Hct 22.0 L Sodium 169 H* Potassium 3.6 Chloride 126.0 H Carbon Dioxide 28 Anion Gap 18 BUN 23 H Creatinine 1.2 Estimated GFR > 60 BUN/Creatinine Ratio 19 Glucose 149 H POC Glucose Calcium 8.5 Phosphorus 2.40 L Blood Type Antibody Screen Crossmatch
[2019-08-25] MEDS ORDERED: POTASSIUM PHOSPHATE 15 MMOL in SODIUM CHLORIDE 0.9% 250ML 250 ML IV ONE (11:02)
[2019-08-25 11:30] LABS: Bacteria,Urine 1+ /HPF (Negative); Bilirubin,Urine NEG (Negative); Blood,Urine SM (Negative); Color,Urine Yellow (Yellow); Mucus,Urine FEW /HPF; Protein,Urine <15 mg/dL mg/dL (Negative); Urobilinogen,Urine < 2.0 mg/dL (<2.0)
[2019-08-25] MEDS: PANTOPRAZOLE 40 MG INJ IV SCH ×2 (12:33→22:46)
[2019-08-25 12:36] LABS: Creatinine,Urine 70.8 mg/dL (0.1-20.0)
--- NOTE | 2019-08-25 13:22 | Progress Note ---
Assessment and Plan Assessment and plan: This is a 64 year old man resident of a [place] with known hx of DM, HTN, Cirrhosis w/ varices, CVA and CAD who [facility] for evaluation of AMS and abdominal distention. Patient on admission was unable to provide any information, per family he is total care although with preserved mental function . He also informs us that the patient has had hemetemesis but not report of nausea or prior vomiting * In the ED the Patient was noted to have creat 15.2, K 7.2, HB 7.[address] abdomen showed obstructive uropathy. He is s/p ferguson catheter. Nephrology was consulted for further evaluation. 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 No hematemesis. * last EGD 2015 showed grade I esophageal varices (not source of bleeding), complex hiatal hernia, and vascular lesion (?prolapsed hernia tissue, ?Misael diomedes varices, ?GIST) in the stomach not amenable to endoscopic tx requiring embolization by IR. Acute blood loss anemia Concerning for UGIB Hepatic encephalopathy Severe Hypernatremia Metabolic Acidosis with Uremia Obstructive uropathy/urinary retention LAVONNE 2/2 To Obstructive uropathy with possible underlying vasomotor nephropathy- improving Hyperkalemia-resolved Acute Cystitis Hx of Prior CVA Cirrhosis WITH HX OF VARICES Secondary coagulopathy Plan Continue supportive care Continue Octerotid and protonix drip will convert to PO if he passes swallow eval Discussed with GI doubt continued GI bleed, will work on transition to PO Hypernatremia, showing some improvement but still significantly evalated, Preculded GI intervention Transfuse 2 units PRBC for total of 3 persients anemia could be due to dilution Continue ferguson, will likely discharge with ferguson to leg bag and outpatient Urology eval Continue Emperic abx, await Urine culture Continue Lactulose enema Advance life care plan, patient per family wish per daughter his wishes were to be DNR/DNI and I asked her to sign the appropriate documents stating such, as his legal next of kin (along with his son)- confirmed with them and signed Continue Neuro check Poor prognosis. Discussed with family Labs in am The high probability of a clinically significant, sudden or life threatening deterioration of the [Neurology, nephrology, gi] system(s) required my full and direct attention, intervention and personal management. The aggregate critical care time was [35] minutes. This time is in addition to time spent performing reported procedures but includes the following: [x] Data Review and interpretation [x] Patient assessment and monitoring of vital signs [x] Documentation [x] Medication orders and management History Interval history: Patient seen and examined, resting comfortable, mental status Continues to improve. No other adverse event noted Hospitalist Physical - Physical exam Narrative exam: General appearance: Present: no acute distress, still not at baseline mental status - EENT ENT: hearing intact - Neck Neck: Present: supple, normal ROM - Respiratory Respiratory effort: normal Respiratory: bilateral: CTA - Cardiovascular Rhythm: regular Heart Sounds: Present: S1 & S2 - Extremities Extremity abnormal: other (Left BKA) - Abdominal General gastrointestinal: soft, non-tender, distended, normal bowel sounds - Integumentary Integumentary: Present: clear, warm, dry - Neurologic Neurologic: other (Awake, Oriented to person, residual left sided weakness from prev stroke) ON Restraints for safety - Constitutional Vitals: Temp Pulse Resp BP Pulse Ox 99.2 F 83 22 149/67 95 08/25/19 13:10 08/25/19 13:10 08/25/19 13:10 08/25/19 13:10 08/25/19 13:10 General appearance: Present: no acute distress Results - Labs CBC & Chem 7: 08/25/19 05:02 08/25/19 09:58 Labs: Laboratory Last Values WBC 20.5 K/mm3 (4.5-11.0) H 08/24/19 04:07 RBC 2.97 M/mm3 (3.65-5.03) L 08/24/19 04:07 Hgb 6.7 gm/dl (11.8-15.2) L 08/25/19 05:02 Hct 22.0 % (35.5-45.6) L 08/25/19 05:02 MCV 79 fl (84-94) L 08/24/19 04:07 MCH 26 pg (28-32) L 08/24/19 04:07 MCHC 33 % (32-34) 08/24/19 04:07 RDW 24.4 % (13.2-15.2) H 08/24/19 04:07 Plt Count 482 K/mm3 (140-440) H 08/24/19 04:07 Lymph % (Auto) 6.9 % (13.4-35.0) L 08/23/19 03:46 Brown % (Auto) Grievance Coordinator 08/24/19 04:07 Eos % (Auto) 0.0 % (0.0-4.3) 08/23/19 03:46 Baso % (Auto) 0.1 % (0.0-1.8) 08/23/19 03:46 Lymph # 0.8 K/mm3 (1.2-5.4) L 08/23/19 03:46 Brown # 1.4 K/mm3 (0.0-0.8) H 08/23/19 03:46 Eos # 0.0 K/mm3 (0.0-0.4) 08/23/19 03:46 Baso # 0.0 K/mm3 (0.0-0.1) 08/23/19 03:46 Add Manual Diff Complete 08/24/19 04:07 Total Counted 100 08/24/19 04:07 Seg Neutrophils % 81.6 % (40.0-70.0) H 08/23/19 03:46 Seg Neuts % (Manual) 92.0 % (40.0-70.0) H 08/24/19 04:07 Band Neutrophils % 0 % 08/24/19 04:07 Lymphocytes % (Manual) 3.0 % (13.4-35.0) L 08/24/19 04:07 Reactive Lymphs % (Man) 0 % 08/24/19 04:07 Monocytes % (Manual) 5.0 % (0.0-7.3) 08/24/19 04:07 Eosinophils % (Manual) 0 % (0.0-4.3) 08/24/19 04:07 Basophils % (Manual) 0 % (0.0-1.8) 08/24/19 04:07 Metamyelocytes % 0 % 08/24/19 04:07 Myelocytes % 0 % 08/24/19 04:07 Promyelocytes % 0 % 08/24/19 04:07 Blast Cells % 0 % 08/24/19 04:07 Nucleated RBC % Not Reportable 08/24/19 04:07 Seg Neutrophils # 10.0 K/mm3 (1.8-7.7) H 08/23/19 03:46 Seg Neutrophils # Man 18.9 K/mm3 (1.8-7.7) H 08/24/19 04:07 Band Neutrophils # 0.0 K/mm3 08/24/19 04:07 Lymphocytes # (Manual) 0.6 K/mm3 (1.2-5.4) L 08/24/19 04:07 Abs React Lymphs (Man) 0.0 K/mm3 08/24/19 04:07 Monocytes # (Manual) 1.0 K/mm3 (0.0-0.8) H 08/24/19 04:07 Eosinophils # (Manual) 0.0 K/mm3 (0.0-0.4) 08/24/19 04:07 Basophils # (Manual) 0.0 K/mm3 (0.0-0.1) 08/24/19 04:07 Metamyelocytes # 0.0 K/mm3 08/24/19 04:07 Myelocytes # 0.0 K/mm3 08/24/19 04:07 Promyelocytes # 0.0 K/mm3 08/24/19 04:07 Blast Cells # 0.0 K/mm3 08/24/19 04:07 WBC Morphology Not Reportable 08/24/19 04:07 Hypersegmented Neuts Not Reportable 08/24/19 04:07 Hyposegmented Neuts Not Reportable 08/24/19 04:07 Hypogranular Neuts Not Reportable 08/24/19 04:07 Smudge Cells Not Reportable 08/24/19 04:07 Toxic Granulation Not Reportable 08/24/19 04:07 Toxic Vacuolation Not Reportable 08/24/19 04:07 Dohle Bodies Not Reportable 08/24/19 04:07 Pelger-Huet Anomaly Not Reportable 08/24/19 04:07 Ramonita Rods Not Reportable 08/24/19 04:07 Platelet Estimate Consistent w auto 08/24/19 04:07 Clumped Platelets Not Reportable 08/24/19 04:07 Plt Clumps, EDTA Not Reportable 08/24/19 04:07 Large Platelets Not Reportable 08/24/19 04:07 Giant Platelets Not Reportable 08/24/19 04:07 Platelet Satelliting Not Reportable 08/24/19 04:07 Plt Morphology Comment Not Reportable 08/24/19 04:07 RBC Morphology Not Reportable 08/24/19 04:07 Dimorphic RBCs Not Reportable 08/24/19 04:07 Polychromasia Not Reportable 08/24/19 04:07 Hypochromasia 1+ 08/24/19 04:07 Poikilocytosis 2+ 08/24/19 04:07 Anisocytosis 2+ 08/24/19 04:07 Microcytosis Not Reportable 08/24/19 04:07 Macrocytosis Not Reportable 08/24/19 04:07 Spherocytes Not Reportable 08/24/19 04:07 Pappenheimer Bodies Not Reportable 08/24/19 04:07 Sickle Cells Not Reportable 08/24/19 04:07 Target Cells 2+ 08/24/19 04:07 Tear Drop Cells Not Reportable 08/24/19 04:07 Ovalocytes Not Reportable 08/24/19 04:07 Helmet Cells Not Reportable 08/24/19 04:[address] [place] Bodies Not Reportable 08/24/19 04:07 [place] Rings Not Reportable 08/24/19 04:07 Freddy Cells Not Reportable 08/24/19 04:07 Bite Cells Not Reportable 08/24/19 04:07 Crenated Cell Not Reportable 08/24/19 04:07 Elliptocytes 1+ 08/24/19 04:07 Acanthocytes (Spur) Not Reportable 08/24/19 04:07 Rouleaux Not Reportable 08/24/19 04:07 Hemoglobin C Crystals Not Reportable 08/24/19 04:07 Schistocytes Not Reportable 08/24/19 04:07 Malaria parasites Not Reportable 08/24/19 04:07 Noel Bodies Not Reportable 08/24/19 04:07 Hem Pathologist Commnt No 08/24/19 04:07 PT 17.8 Sec. (12.2-14.9) H 08/24/19 04:07 INR 1.51 (0.87-1.13) H 08/24/19 04:07 APTT 31.8 Sec. (24.2-36.6) 08/22/19 12:39 Sodium 166 mmol/L (137-145) H* 08/25/19 09:58 Potassium 3.6 mmol/L (3.6-5.0) 08/25/19 05:02 Chloride 126.0 mmol/L (98-107) H 08/25/19 05:02 Carbon Dioxide 28 mmol/L (22-30) 08/25/19 05:02 Anion Gap 18 mmol/L 08/25/19 05:02 BUN 23 mg/dL (9-20) H 08/25/19 05:02 Creatinine 1.2 mg/dL (0.8-1.5) 08/25/19 05:02 Estimated GFR > 60 ml/min 08/25/19 05:02 BUN/Creatinine Ratio 19 % 08/25/19 05:02 Glucose 149 mg/dL (75-100) H 08/25/19 05:02 POC Glucose 203 (70-105) H 08/24/19 16:44 Osmolality 351 Mosm/kg 08/25/19 09:58 Lactic Acid 1.60 mmol/L (0.7-2.0) 08/22/19 23:07 Calcium 8.5 mg/dL (8.4-10.2) 08/25/19 05:02 Phosphorus 2.40 mg/dL (2.5-4.5) L 08/25/19 05:02 Magnesium 2.00 mg/dL (1.7-2.3) 08/24/19 04:07 Total Bilirubin 0.30 mg/dL (0.1-1.2) 08/22/19 12:39 Direct Bilirubin < 0.2 mg/dL (0-0.2) 08/22/19 12:39 Indirect Bilirubin 0.1 mg/dL 08/22/19 12:39 AST 13 units/L (5-40) 08/22/19 12:39 ALT 9 units/L (7-56) 08/22/19 12:39 Alkaline Phosphatase 136 units/L (35-129) H 08/22/19 12:39 Ammonia 38.0 umol/L (25-60) 08/24/19 04:07 Troponin T < 0.010 ng/mL (0.00-0.029) 08/22/19 12:39 NT-Pro-B Natriuret Pep 1788 pg/mL (0-900) H 08/22/19 12:39 Total Protein 7.2 g/dL (6.3-8.2) 08/22/19 12:39 Albumin 3.0 g/dL (3.9-5) L 08/22/19 12:39 Albumin/Globulin Ratio 0.7 % 08/22/19 12:39 Lipase 18 units/L (13-60) 08/22/19 12:39 Urine Color Yellow (Yellow) 08/25/19 10:45 Urine Turbidity Clear (Clear) 08/25/19 10:45 Urine pH 6.0 (5.0-7.0) 08/25/19 10:45 Ur Specific [place] 1.012 (1.003-1.030) 08/25/19 10:45 Urine Protein <15 mg/dl mg/dL (Negative) 08/25/19 10:45 Urine Glucose (UA) Neg mg/dL (Negative) 08/25/19 10:45 Urine Ketones Neg mg/dL (Negative) 08/25/19 10:45 Urine Blood Sm (Negative) 08/25/19 10:45 Urine Nitrite Neg (Negative) 08/25/19 10:45 Urine Bilirubin Neg (Negative) 08/25/19 10:45 Urine Urobilinogen < 2.0 mg/dL (<2.0) 08/25/19 10:45 Ur Leukocyte Esterase Sm (Negative) 08/25/19 10:45 Urine WBC (Auto) 17.0 /HPF (0.0-6.0) H 08/25/19 10:45 Urine RBC (Auto) 7.0 /HPF (0.0-6.0) 08/25/19 10:45 Urine Bacteria (Auto) 1+ /HPF (Negative) 08/25/19 10:45 Urine Mucus Few /HPF 08/25/19 10:45 Urine Osmolality 455 Mosm/kg 08/25/19 10:45 Urine Creatinine 70.8 mg/dL (0.1-20.0) H 08/25/19 10:45 Urine Sodium 74 mmol/L 08/25/19 10:45 Blood Type O POSITIVE 08/22/19 12:39 Antibody Screen Negative 08/22/19 12:39 Crossmatch See Detail 08/22/19 12:39 Active Medications - Current Medications Current Medications: Generic Name Dose Route Start Last Admin Trade Name Haseeb PRN Reason Stop Dose Admin Chlorothiazide Sodium 500 mg 08/25/19 10:00 08/25/19 10:12 Diuril IV 500 mg BID KJ Administration Hydromorphone HCl 0.25 mg 08/22/19 21:17 08/24/19 21:02 Dilaudid IV 0.25 mg Q3H PRN Administration Pain, Moderate (4-6) Ceftriaxone Sodium 1 gm in 50 mls @ 100 mls/hr 08/22/19 22:00 08/24/19 21:54 Rocephin/Ns 1 Gm/50 Ml IV 100 mls/hr Q24HR@2200 KJ Administration Protocol Potassium Chloride 40 meq/ 1,020 mls @ 150 mls/hr 08/23/19 05:30 08/25/19 11:46 Dextrose IV 150 mls/hr DIRECT KJ Administration Octreotide Acetate 500 mcg/ 101 mls @ 5.05 mls/hr 08/23/19 12:00 08/25/19 06:35 Sodium Chloride IV 25 mcg/hr TITR KJ 5.05 mls/hr Administration Protocol 25 MCG/HR Sodium Chloride 500 mls @ 0 mls/hr 08/25/19 09:30 08/25/19 10:19 Nacl 0.9% 500 Ml IV 08/25/19 17:00 50 mls/hr ONCE NR Administration As Directed Potassium Phosphate 15 mmol/ 255 mls @ 63 mls/hr 08/25/19 11:02 08/25/19 12:30 Sodium Chloride IV 08/25/19 15:04 63 mls/hr ONCE ONE Administration Lactulose 200 gm 08/23/19 07:00 08/25/19 06:35 Cephulac NC 200 gm Q6H KJ Administration Pantoprazole Sodium 40 mg 08/25/19 11:00 08/25/19 12:33 Protonix IV 40 mg BID KJ Administration Sodium Chloride 10 ml 08/22/19 22:00 08/25/19 10:12 Sodium Chloride Flush Syringe 10 Ml IV 10 ml BID KJ Administration Sodium Chloride 10 ml 08/22/19 21:11 Sodium Chloride Flush Syringe 10 Ml IV PRN PRN LINE FLUSH
--- NOTE | 2019-08-25 22:30 | Progress Note ---
Assessment and Plan Imp: 1. Obstructive uropathy/urinary retention 2. LAVONNE 2/2 #1 3. Hyperkalemia 4. R/o UTI 5. UGIB 6. Cirrhosis 7. Acute blood loss anemia 8. Hepatic encephalopathy 9. Hypernatremia Rec: 1. [place] placed; renal function improving; he is having post-obstructive diuresis now, on hypotonic IVFs and will defer management of the same to renal 2. Empiric Rocephin for now 3. Protonix/Octreotide drips; stop Eliquis; gave Vit K; trend H/H, INR; for possible EGD 4. SCDs to LEs 5. Lactulose enemas 6. PRBCs 08/25/19 7. Updated daughter extensively on 08/23/19 re: his condition; per daughter his wishes were to be DNR/DNI Plan of care reviewed with son, he understands/agrees Subjective Date of service: 08/25/19 Principal diagnosis: GI bleed Interval history: No events. No reports of bleeding. No obvious complaints. Active Medications Chlorothiazide Sodium (Diuril) 500 mg IV BID KJ Last Admin: 08/25/19 10:12 Dose: 500 mg Documented by: Hydromorphone HCl (Dilaudid) 0.25 mg IV Q3H PRN PRN Reason: Pain, Moderate (4-6) Last Admin: 08/24/19 21:02 Dose: 0.25 mg Documented by: Ceftriaxone Sodium (Rocephin/Ns 1 Gm/50 Ml) 1 gm in 50 mls @ 100 mls/hr IV Q24HR@2200 KJ; Protocol Last Admin: 08/24/19 21:54 Dose: 100 mls/hr Documented by: Potassium Chloride 40 meq/ (Dextrose) 1,020 mls @ 150 mls/hr IV DIRECT KJ Last Admin: 08/25/19 19:03 Dose: 150 mls/hr Documented by: Octreotide Acetate 500 mcg/ (Sodium Chloride) 101 mls @ 5.05 mls/hr IV TITR [facility]; Protocol Last Admin: 08/25/19 06:35 Dose: 25 mcg/hr, 5.05 mls/hr Documented by: Lactulose (Cephulac) 200 gm CO Q6H KJ Last Admin: 08/25/19 18:13 Dose: 200 gm Documented by: Pantoprazole Sodium (Protonix) 40 mg IV BID [facility] Last Admin: 08/25/19 12:33 Dose: 40 mg Documented by: Sodium Chloride (Sodium Chloride Flush Syringe 10 Ml) 10 ml IV BID [facility] Last Admin: 08/25/19 21:03 Dose: Not Given Documented by: Sodium Chloride (Sodium Chloride Flush Syringe 10 Ml) 10 ml IV PRN PRN PRN Reason: LINE FLUSH Objective Vital Signs - 12hr 08/25/19 08/25/19 08/25/19 10:30 10:40 10:55 Temperature 99.0 F 98.8 F Pulse Rate 98 H 97 H 95 H Pulse Rate [ Right Dorsalis Pedis] Respiratory 26 H 27 H 25 H Rate Blood Pressure 149/68 151/71 164/71 O2 Sat by Pulse 96 97 97 Oximetry 08/25/19 08/25/19 08/25/19 11:00 11:25 11:30 Temperature 98.7 F Pulse Rate 93 H 93 H 98 H Pulse Rate [ Right Dorsalis Pedis] Respiratory 22 24 28 H Rate Blood Pressure 149/68 159/76 164/71 O2 Sat by Pulse 98 97 97 Oximetry 08/25/19 08/25/19 08/25/19 11:55 12:00 12:25 Temperature 99.8 F H 99.9 F H 98.4 F Pulse Rate 89 89 87 Pulse Rate [ Right Dorsalis Pedis] Respiratory 18 21 26 H Rate Blood Pressure 155/73 155/73 149/70 O2 Sat by Pulse 97 97 96 Oximetry 08/25/19 08/25/19 08/25/19 12:30 12:40 13:00 Temperature 99.4 F Pulse Rate 88 90 84 Pulse Rate [ Right Dorsalis Pedis] Respiratory 27 H 20 27 H Rate Blood Pressure 159/73 159/73 149/67 O2 Sat by Pulse 95 96 96 Oximetry 08/25/19 08/25/19 08/25/19 13:10 13:30 13:40 Temperature 99.2 F 99.4 F Pulse Rate 83 89 86 Pulse Rate [ Right Dorsalis Pedis] Respiratory 22 28 H 23 Rate Blood Pressure 149/67 147/68 147/68 O2 Sat by Pulse 95 95 96 Oximetry 08/25/19 08/25/19 08/25/19 14:00 14:10 14:30 Temperature 99.2 F Pulse Rate 88 81 84 Pulse Rate [ Right Dorsalis Pedis] Respiratory 29 H 25 H 25 H Rate Blood Pressure 138/66 138/66 153/69 O2 Sat by Pulse 96 96 97 Oximetry 08/25/19 08/25/19 08/25/19 14:40 15:00 15:10 Temperature 99.0 F 99.4 F Pulse Rate 85 91 H 91 H Pulse Rate [ Right Dorsalis Pedis] Respiratory 26 H 30 H 24 Rate Blood Pressure 156/71 156/71 152/69 O2 Sat by Pulse 96 96 97 Oximetry 08/25/19 08/25/19 08/25/19 15:30 16:00 16:31 Temperature Pulse Rate 89 85 89 Pulse Rate [ Right Dorsalis Pedis] Respiratory 29 H 27 H 31 H Rate Blood Pressure 140/74 151/64 158/82 O2 Sat by Pulse 96 95 97 Oximetry 08/25/19 08/25/19 08/25/19 17:00 17:30 18:00 Temperature Pulse Rate 94 H 88 91 H Pulse Rate [ Right Dorsalis Pedis] Respiratory 26 H 21 33 H Rate Blood Pressure 173/86 163/72 165/81 O2 Sat by Pulse 95 97 96 Oximetry 08/25/19 08/25/19 08/25/19 18:30 19:00 19:30 Temperature Pulse Rate 85 84 89 Pulse Rate [ Right Dorsalis Pedis] Respiratory 27 H 24 22 Rate Blood Pressure 172/70 157/67 157/82 O2 Sat by Pulse 96 96 Oximetry 08/25/19 08/25/19 08/25/19 19:51 20:00 20:30 Temperature Pulse Rate 79 81 Pulse Rate [ 77 Right Dorsalis Pedis] Respiratory 26 H 25 H Rate Blood Pressure 151/64 152/68 O2 Sat by Pulse 97 97 97 Oximetry 08/25/19 08/25/19 08/25/19 20:36 21:00 21:30 Temperature 99.4 F Pulse Rate 82 75 Pulse Rate [ Right Dorsalis Pedis] Respiratory 26 H 20 Rate Blood Pressure 147/75 155/69 O2 Sat by Pulse 96 97 Oximetry 08/25/19 22:00 Temperature Pulse Rate 68 Pulse Rate [ Right Dorsalis Pedis] Respiratory 23 Rate Blood Pressure 155/65 O2 Sat by Pulse 96 Oximetry Constitutional: other (awake, confused, more alert) Eyes: non-icteric ENT: oropharynx dry Neck: supple Effort: normal Ascultation: Bilateral: wheezes (faint expiratory wheezes bilaterally) Cardiovascular: other (tachy, RR; no mrg) Gastrointestinal: normoactive bowel sounds, soft, non-tender, non-distended Extremities: anasarca (2+ bilateral LE edema) Neurologic: non-focal exam Psychiatric: other (unable to assess) CBC and BMP: 08/25/19 05:02 08/25/19 09:58 ABG, PT/INR, D-dimer: PT/INR, D-dimer PT 17.8 Sec. (12.2-14.9) H 08/24/19 04:07 INR 1.51 (0.87-1.13) H 08/24/19 04:07 Abnormal lab findings: Abnormal Labs 08/22/19 08/22/19 08/22/19 12:14 12:39 12:39 WBC 13.0 H RBC 3.10 L Hgb 7.9 L Hct 26.7 L MCV MCH 26 L MCHC 30 L RDW 25.6 H Plt Count Lymph % (Auto) 9.3 L [place] % (Auto) Lymph # [place] # Seg Neutrophils % 84.0 H Seg Neuts % (Manual) Lymphocytes % (Manual) Seg Neutrophils # 10.9 H Seg Neutrophils # Man Lymphocytes # (Manual) Monocytes # (Manual) PT 23.1 H INR 2.10 H Sodium Potassium 7.2 H* Chloride Carbon Dioxide 12 L BUN 195 H Creatinine 15.2 H Glucose 132 H POC Glucose Calcium 7.5 L Phosphorus Magnesium 3.50 H Alkaline Phosphatase 136 H Ammonia NT-Pro-B Natriuret Pep 1788 H Albumin 3.0 L Urine WBC (Auto) Urine Creatinine Crossmatch 08/22/19 08/22/19 08/22/19 12:39 12:39 15:12 WBC RBC Hgb Hct MCV MCH MCHC RDW Plt Count Lymph % (Auto) [place] % (Auto) Lymph # [place] # Seg Neutrophils % Seg Neuts % (Manual) Lymphocytes % (Manual) Seg Neutrophils # Seg Neutrophils # Man Lymphocytes # (Manual) Monocytes # (Manual) PT INR Sodium Potassium Chloride Carbon Dioxide BUN Creatinine Glucose POC Glucose Calcium Phosphorus Magnesium Alkaline Phosphatase Ammonia 267.0 H NT-Pro-B Natriuret Pep Albumin Urine WBC (Auto) 22.0 H Urine Creatinine Crossmatch See Detail 08/22/19 08/22/1919 18:13 23:07 03:46 WBC 12.2 H RBC 2.73 L Hgb 7.7 L 7.0 L Hct 23.6 L 21.5 L MCV 79 L MCH 26 L MCHC RDW 24.9 H Plt Count Lymph % (Auto) 6.9 L [place] % (Auto) 11.4 H Lymph # 0.8 L [place] # 1.4 H Seg Neutrophils % 81.6 H Seg Neuts % (Manual) Lymphocytes % (Manual) Seg Neutrophils # 10.0 H Seg Neutrophils # Man Lymphocytes # (Manual) Monocytes # (Manual) PT INR Sodium 148 H D Potassium Chloride 107.1 H Carbon Dioxide 15 L BUN 173 H Creatinine 11.0 H Glucose 151 H POC Glucose Calcium 8.2 L Phosphorus Magnesium Alkaline Phosphatase Ammonia NT-Pro-B Natriuret Pep Albumin Urine WBC (Auto) Urine Creatinine Crossmatch 08/23/19 08/23/19 08/24/19 03:46 13:52 00:25 WBC RBC Hgb 7.5 L Hct 23.6 L MCV MCH MCHC RDW Plt Count Lymph % (Auto) [place] % (Auto) Lymph # [place] # Seg Neutrophils % Seg Neuts % (Manual) Lymphocytes % (Manual) Seg Neutrophils # Seg Neutrophils # Man Lymphocytes # (Manual) Monocytes # (Manual) PT INR Sodium 160 H D Potassium 3.4 L D Chloride 121.8 H Carbon Dioxide BUN 116 H Creatinine 5.4 H D Glucose 209 H POC Glucose 181 H Calcium Phosphorus Magnesium Alkaline Phosphatase Ammonia NT-Pro-B Natriuret Pep Albumin Urine WBC (Auto) Urine Creatinine Crossmatch 08/24/19 08/24/19 08/24/19 04:07 04:07 04:07 WBC 20.5 H RBC 2.97 L Hgb 7.7 L Hct 23.5 L MCV 79 L MCH 26 L MCHC RDW 24.4 H Plt Count 482 H Lymph % (Auto) [place] % (Auto) Lymph # [place] # Seg Neutrophils % Seg Neuts % (Manual) 92.0 H Lymphocytes % (Manual) 3.0 L Seg Neutrophils # Seg Neutrophils # Man 18.9 H Lymphocytes # (Manual) 0.6 L Monocytes # (Manual) 1.0 H PT 17.8 H INR 1.51 H Sodium 172 H* D Potassium Chloride 131.1 H Carbon Dioxide BUN 44 H Creatinine Glucose 175 H POC Glucose Calcium Phosphorus 2.30 L Magnesium Alkaline Phosphatase Ammonia NT-Pro-B Natriuret Pep Albumin Urine WBC (Auto) Urine Creatinine Crossmatch 08/24/19 08/24/19 08/24/19 09:28 11:36 13:18 WBC RBC Hgb Hct MCV MCH MCHC RDW Plt Count Lymph % (Auto) [place] % (Auto) Lymph # [place] # Seg Neutrophils % Seg Neuts % (Manual) Lymphocytes % (Manual) Seg Neutrophils # Seg Neutrophils # Man Lymphocytes # (Manual) Monocytes # (Manual) PT INR Sodium 171 H* 172 H* Potassium Chloride Carbon Dioxide BUN Creatinine Glucose POC Glucose 190 H Calcium Phosphorus Magnesium Alkaline Phosphatase Ammonia NT-Pro-B Natriuret Pep Albumin Urine WBC (Auto) Urine Creatinine Crossmatch 08/24/19 08/24/19 08/24/19 16:44 19:31 19:31 WBC RBC Hgb 6.9 L Hct 22.8 L MCV MCH MCHC RDW Plt Count Lymph % (Auto) [place] % (Auto) Lymph # [place] # Seg Neutrophils % Seg Neuts % (Manual) Lymphocytes % (Manual) Seg Neutrophils # Seg Neutrophils # Man Lymphocytes # (Manual) Monocytes # (Manual) PT INR Sodium 170 H* Potassium Chloride Carbon Dioxide BUN Creatinine Glucose POC Glucose 203 H Calcium Phosphorus Magnesium Alkaline Phosphatase Ammonia NT-Pro-B Natriuret Pep Albumin Urine WBC (Auto) Urine Creatinine Crossmatch 08/25/19 08/25/19 08/25/19 05:02 05:02 09:58 WBC RBC Hgb 6.7 L Hct 22.0 L MCV MCH MCHC RDW Plt Count Lymph % (Auto) [place] % (Auto) Lymph # [place] # Seg Neutrophils % Seg Neuts % (Manual) Lymphocytes % (Manual) Seg Neutrophils # Seg Neutrophils # Man Lymphocytes # (Manual) Monocytes # (Manual) PT INR Sodium 169 H* 166 H* Potassium Chloride 126.0 H Carbon Dioxide BUN 23 H Creatinine Glucose 149 H POC Glucose Calcium Phosphorus 2.40 L Magnesium Alkaline Phosphatase Ammonia NT-Pro-B Natriuret Pep Albumin Urine WBC (Auto) Urine Creatinine Crossmatch 08/25/19 08/25/19 10:45 10:45 WBC RBC Hgb Hct MCV MCH MCHC RDW Plt Count Lymph % (Auto) [place] % (Auto) Lymph # [place] # Seg Neutrophils % Seg Neuts % (Manual) Lymphocytes % (Manual) Seg Neutrophils # Seg Neutrophils # Man Lymphocytes # (Manual) Monocytes # (Manual) PT INR Sodium Potassium Chloride Carbon Dioxide BUN Creatinine Glucose POC Glucose Calcium Phosphorus Magnesium Alkaline Phosphatase Ammonia NT-Pro-B Natriuret Pep Albumin Urine WBC (Auto) 17.0 H Urine Creatinine 70.8 H Crossmatch Chest x-ray: report reviewed, image reviewed
[2019-08-25] MEDS: cefTRIAXone/NS 1 GM/50 ML 1 GM/50 ML BAG IV SCH (22:45)
[2019-08-26] MEDS: OCTREOTIDE 500 MCG in SODIUM CHLORIDE 0.9% 100 ML IV SCH ×2 (00:18→17:37)
[2019-08-26] MEDS: LACTULOSE ENEMA 1000 ML PR SCH ×4 (00:20→19:00)
[2019-08-26] MEDS: HYDROmorphone 1 MG/1 ML INJ IV PRN ×2 (01:16→06:11)
[2019-08-26] MEDS: POTASSIUM CHLORIDE 40 MEQ in DEXTROSE 5% IN WATER 1,000 ML IV SCH ×3 (01:41→17:36)
[2019-08-26 04:57] LABS: Hematocrit 28.5 % (35.5-45.6); Hemoglobin 9.1 gm/dl (11.8-15.2); Mean Corpuscular HGB Conc 32 % (32-34); Mean Corpuscular Volume 83 fl (84-94); Platelet Count 293 K/mm3 (140-440); Red Blood Count 3.43 M/mm3 (3.65-5.03)
[2019-08-26 06:53] LABS: Alanine Aminotransferase 28 units/L (7-56); Albumin 2.9 g/dL (3.9-5); BUN/Creatinine Ratio 13; Blood Urea Nitrogen 16 mg/dL (9-20); Calcium 7.8 mg/dL (8.4-10.2); Hemolysis Index 3
[2019-08-26] MEDS: POTASSIUM CHLORIDE 10 MEQ 10 MEQ/100 ML BAG IV SCH ×4 (07:57→11:26)
[2019-08-26] MEDS ORDERED: POTASSIUM CHLORIDE 10 MEQ 10 MEQ/100 ML BAG IV SCH (09:00)
[2019-08-26] MEDS: PANTOPRAZOLE 40 MG INJ IV SCH ×2 (09:09→22:43)
--- NOTE | 2019-08-26 10:44 | Progress Note ---
Assessment and Plan Assessment and plan: This is a 64 year old man resident of a [place] with known hx of DM, HTN, Cirrhosis w/ varices, CVA and CAD who was brought to [facility] ED for evaluation of AMS and abdominal distention. Patient on admission was unable to provide any information, per family he is total care although with preserved mental function . He also informs us that the patient has had hemetemesis but not report of nausea or prior vomiting * In the ED the Patient was noted to have creat 15.2, K 7.2, HB 7.[address] abdomen showed obstructive uropathy. He is s/p ferguson catheter. Nephrology was consulted for further evaluation. * Within 48 hrs he was noted to have a sodium of 170s * PER GI * hold blood thinning medications, BMs overnight with continue dark/black stool No hematemesis. * last EGD 2015 showed grade I esophageal varices (not source of bleeding), complex hiatal hernia, and vascular lesion (?prolapsed hernia tissue, ?Gastric varices, ?GIST) in the stomach not amenable to endoscopic tx requiring embolization by IR. * Failed swallow eval 08/25/19 Acute blood loss anemia Concerning for UGIB Hepatic encephalopathy Leukocytosis- ?source. Severe Hypernatremia- Improved Metabolic Acidosis with Uremia Obstructive Uropathy/urinary retention LAVONNE 2/2 To Obstructive uropathy with possible underlying vasomotor nephropathy- improving Hyperkalemia-resolved Acute Cystitis Hx of Prior CVA Cirrhosis WITH HX OF VARICES Secondary coagulopathy Plan Continue supportive care Swallow re-evaluation by speech therapy today Diatery consult to see if any additional dietary option, maybe TPN as anatomy precluding tube feed Continue Octerotid and protonix drip will convert to PO if he passes swallow eval Discussed with GI doubt continued GI bleed, will work on transition to PO Hypernatremia, showing some improvement but still significantly evaluated, Preculded GI intervention Transfused total PRBC 3 units with good response anemia Continue ferguson, will likely discharge with ferguson to leg bag and outpatient Urology eval Continue Emperic abx, await Urine culture Continue Lactulose enema Advance life care plan, patient per family wish per daughter his wishes were to be DNR/DNI and I asked her to sign the appropriate documents stating such, as his legal next of kin (along with his son)- confirmed with them and signed Continue Neuro check Poor prognosis. Discussed with family Labs in am The high probability of a clinically significant, sudden or life threatening deterioration of the [Neurology, nephrology, gi] system(s) required my full and direct attention, intervention and personal management. The aggregate critical care time was [35] minutes. This time is in addition to time spent performing reported procedures but includes the following: [x] Data Review and interpretation [x] Patient assessment and monitoring of vital signs [x] Documentation [x] Medication orders and management History Interval history: Patient seen and examined, resting comfortable, mental status Continues to improve. Patient has underlying mental status deficit and appears to be close to his baseline, No other adverse event noted Hospitalist Physical - Physical exam Narrative exam: General appearance: Present: no acute distress, Altered - EENT ENT: hearing intact - Neck Neck: Present: supple, normal ROM - Respiratory Respiratory effort: normal Respiratory: bilateral: CTA - Cardiovascular Rhythm: regular Heart Sounds: Present: S1 & S2 - Extremities Extremity abnormal: other (Left BKA) - Abdominal General gastrointestinal: soft, non-tender, distended, normal bowel sounds - Integumentary Integumentary: Present: warm, dry, noted echymosis right antecubital region - Neurologic Neurologic: other (Awake, Oriented to person, residual left sided weakness from prev stroke) ON Restraints for safety on right upper exxt - Constitutional Vitals: Temp Pulse Resp BP Pulse Ox 98.6 F 72 24 145/54 96 08/26/19 08:00 08/26/19 09:00 08/26/19 09:00 08/26/19 09:00 08/26/19 09:10 General appearance: Present: no acute distress Results - Labs CBC & Chem 7: 08/26/19 04:25 08/26/19 05:48 Labs: Laboratory Last Values WBC 26.8 K/mm3 (4.5-11.0) H 08/26/19 04:25 RBC 3.43 M/mm3 (3.65-5.03) L 08/26/19 04:25 Hgb 9.1 gm/dl (11.8-15.2) L 08/26/19 04:25 Hct 28.5 % (35.5-45.6) L D 08/26/19 04:25 MCV 83 fl (84-94) L 08/26/19 04:25 MCH 27 pg (28-32) L 08/26/19 04:25 MCHC 32 % (32-34) 08/26/19 04:25 RDW 23.0 % (13.2-15.2) H 08/26/19 04:25 Plt Count 293 K/mm3 (140-440) 08/26/19 04:25 Lymph % (Auto) 6.9 % (13.4-35.0) L 08/23/19 03:46 [place] % (Auto) [employer] 08/24/19 04:07 Eos % (Auto) 0.0 % (0.0-4.3) 08/23/19 03:46 Baso % (Auto) 0.1 % (0.0-1.8) 08/23/19 03:46 Lymph # 0.8 K/mm3 (1.2-5.4) L 08/23/19 03:46 [place] # 1.4 K/mm3 (0.0-0.8) H 08/23/19 03:46 Eos # 0.0 K/mm3 (0.0-0.4) 08/23/19 03:46 Baso # 0.0 K/mm3 (0.0-0.1) 08/23/19 03:46 Add Manual Diff Complete 08/24/19 04:07 Total Counted 100 08/24/19 04:07 Seg Neutrophils % 81.6 % (40.0-70.0) H 08/23/19 03:46 Seg Neuts % (Manual) 92.0 % (40.0-70.0) H 08/24/19 04:07 Band Neutrophils % 0 % 08/24/19 04:07 Lymphocytes % (Manual) 3.0 % (13.4-35.0) L 08/24/19 04:07 Reactive Lymphs % (Man) 0 % 08/24/19 04:07 Monocytes % (Manual) 5.0 % (0.0-7.3) 08/24/19 04:07 Eosinophils % (Manual) 0 % (0.0-4.3) 08/24/19 04:07 Basophils % (Manual) 0 % (0.0-1.8) 08/24/19 04:07 Metamyelocytes % 0 % 08/24/19 04:07 Myelocytes % 0 % 08/24/19 04:07 Promyelocytes % 0 % 08/24/19 04:07 Blast Cells % 0 % 08/24/19 04:07 Nucleated RBC % Not Reportable 08/24/19 04:07 Seg Neutrophils # 10.0 K/mm3 (1.8-7.7) H 08/23/19 03:46 Seg Neutrophils # Man 18.9 K/mm3 (1.8-7.7) H 08/24/19 04:07 Band Neutrophils # 0.0 K/mm3 08/24/19 04:07 Lymphocytes # (Manual) 0.6 K/mm3 (1.2-5.4) L 08/24/19 04:07 Abs React Lymphs (Man) 0.0 K/mm3 08/24/19 04:07 Monocytes # (Manual) 1.0 K/mm3 (0.0-0.8) H 08/24/19 04:07 Eosinophils # (Manual) 0.0 K/mm3 (0.0-0.4) 08/24/19 04:07 Basophils # (Manual) 0.0 K/mm3 (0.0-0.1) 08/24/19 04:07 Metamyelocytes # 0.0 K/mm3 08/24/19 04:07 Myelocytes # 0.0 K/mm3 08/24/19 04:07 Promyelocytes # 0.0 K/mm3 08/24/19 04:07 Blast Cells # 0.0 K/mm3 08/24/19 04:07 WBC Morphology Not Reportable 08/24/19 04:07 Hypersegmented Neuts Not Reportable 08/24/19 04:07 Hyposegmented Neuts Not Reportable 08/24/19 04:07 Hypogranular Neuts Not Reportable 08/24/19 04:07 Smudge Cells Not Reportable 08/24/19 04:07 Toxic Granulation Not Reportable 08/24/19 04:07 Toxic Vacuolation Not Reportable 08/24/19 04:07 Dohle Bodies Not Reportable 08/24/19 04:07 Pelger-Huet Anomaly Not Reportable 08/24/19 04:07 Ramonita Rods Not Reportable 08/24/19 04:07 Platelet Estimate Consistent w auto 08/24/19 04:07 Clumped Platelets Not Reportable 08/24/19 04:07 Plt Clumps, EDTA Not Reportable 08/24/19 04:07 Large Platelets Not Reportable 08/24/19 04:07 Giant Platelets Not Reportable 08/24/19 04:07 Platelet Satelliting Not Reportable 08/24/19 04:07 Plt Morphology Comment Not Reportable 08/24/19 04:07 RBC Morphology Not Reportable 08/24/19 04:07 Dimorphic RBCs Not Reportable 08/24/19 04:07 Polychromasia Not Reportable 08/24/19 04:07 Hypochromasia 1+ 08/24/19 04:07 Poikilocytosis 2+ 08/24/19 04:07 Anisocytosis 2+ 08/24/19 04:07 Microcytosis Not Reportable 08/24/19 04:07 Macrocytosis Not Reportable 08/24/19 04:07 Spherocytes Not Reportable 08/24/19 04:07 Pappenheimer Bodies Not Reportable 08/24/19 04:07 Sickle Cells Not Reportable 08/24/19 04:07 Target Cells 2+ 08/24/19 04:07 Tear Drop Cells Not Reportable 08/24/19 04:07 Ovalocytes Not Reportable 08/24/19 04:07 Helmet Cells Not Reportable 08/24/19 04:07 Valle-Verdel Bodies Not Reportable 08/24/19 04:07 Frohna Rings Not Reportable 08/24/19 04:07 [place] Cells Not Reportable 08/24/19 04:07 Bite Cells Not Reportable 08/24/19 04:07 Crenated Cell Not Reportable 08/24/19 04:07 Elliptocytes 1+ 08/24/19 04:07 Acanthocytes (Spur) Not Reportable 08/24/19 04:07 Rouleaux Not Reportable 08/24/19 04:07 Hemoglobin C Crystals Not Reportable 08/24/19 04:07 Schistocytes Not Reportable 08/24/19 04:07 Malaria parasites Not Reportable 08/24/19 04:07 Noel Bodies Not Reportable 08/24/19 04:07 Hem Pathologist Commnt No 08/24/19 04:07 PT 17.8 Sec. (12.2-14.9) H 08/24/19 04:07 INR 1.51 (0.87-1.13) H 08/24/19 04:07 APTT 31.8 Sec. (24.2-36.6) 08/22/19 12:39 Sodium 159 mmol/L (137-145) H 08/26/19 05:48 Potassium 3.4 mmol/L (3.6-5.0) L 08/26/19 05:48 Chloride 116.4 mmol/L (98-107) H 08/26/19 05:48 Carbon Dioxide 30 mmol/L (22-30) 08/26/19 05:48 Anion Gap 16 mmol/L 08/26/19 05:48 BUN 16 mg/dL (9-20) 08/26/19 05:48 Creatinine 1.2 mg/dL (0.8-1.5) 08/26/19 05:48 Estimated GFR > 60 ml/min 08/26/19 05:48 BUN/Creatinine Ratio 13 % 08/26/19 05:48 Glucose 159 mg/dL (75-100) H 08/26/19 05:48 POC Glucose 203 (70-105) H 08/24/19 16:44 Osmolality 351 Mosm/kg 08/25/19 09:58 Lactic Acid 1.60 mmol/L (0.7-2.0) 08/22/19 23:07 Calcium 7.8 mg/dL (8.4-10.2) L 08/26/19 05:48 Phosphorus 2.70 mg/dL (2.5-4.5) 08/26/19 05:48 Magnesium 2.00 mg/dL (1.7-2.3) 08/24/19 04:07 Total Bilirubin 0.50 mg/dL (0.1-1.2) 08/26/19 05:48 Direct Bilirubin < 0.2 mg/dL (0-0.2) 08/22/19 12:39 Indirect Bilirubin 0.1 mg/dL 08/22/19 12:39 AST 73 units/L (5-40) H 08/26/19 05:48 ALT 28 units/L (7-56) 08/26/19 05:48 Alkaline Phosphatase 118 units/L (35-129) 08/26/19 05:48 Ammonia 38.0 umol/L (25-60) 08/24/19 04:07 Troponin T < 0.010 ng/mL (0.00-0.029) 08/22/19 12:39 NT-Pro-B Natriuret Pep 1788 pg/mL (0-900) H 08/22/19 12:39 Total Protein 6.2 g/dL (6.3-8.2) L 08/26/19 05:48 Albumin 2.9 g/dL (3.9-5) L 08/26/19 05:48 Albumin/Globulin Ratio 0.9 % 08/26/19 05:48 Lipase 18 units/L (13-60) 08/22/19 12:39 Urine Color Yellow (Yellow) 08/25/19 10:45 Urine Turbidity Clear (Clear) 08/25/19 10:45 Urine pH 6.0 (5.0-7.0) 08/25/19 10:45 Ur Specific [place] 1.012 (1.003-1.030) 08/25/19 10:45 Urine Protein <15 mg/dl mg/dL (Negative) 08/25/19 10:45 Urine Glucose (UA) Neg mg/dL (Negative) 08/25/19 10:45 Urine Ketones Neg mg/dL (Negative) 08/25/19 10:45 Urine Blood Sm (Negative) 08/25/19 10:45 Urine Nitrite Neg (Negative) 08/25/19 10:45 Urine Bilirubin Neg (Negative) 08/25/19 10:45 Urine Urobilinogen < 2.0 mg/dL (<2.0) 08/25/19 10:45 Ur Leukocyte Esterase Sm (Negative) 08/25/19 10:45 Urine WBC (Auto) 17.0 /HPF (0.0-6.0) H 08/25/19 10:45 Urine RBC (Auto) 7.0 /HPF (0.0-6.0) 08/25/19 10:45 Urine Bacteria (Auto) 1+ /HPF (Negative) 08/25/19 10:45 Urine Mucus Few /HPF 08/25/19 10:45 Urine Osmolality 455 Mosm/kg 08/25/19 10:45 Urine Creatinine 70.8 mg/dL (0.1-20.0) H 08/25/19 10:45 Urine Sodium 74 mmol/L 08/25/19 10:45 Blood Type O POSITIVE 08/22/19 12:39 Antibody Screen Negative 08/22/19 12:39 Crossmatch See Detail 08/22/19 12:39 Active Medications - Current Medications Current Medications: Generic Name Dose Route Start Last Admin Trade Name Freq PRN Reason Stop Dose Admin Chlorothiazide Sodium 500 mg 08/25/19 10:00 08/25/19 22:45 Diuril IV 500 mg BID KJ Administration Hydromorphone HCl 0.25 mg 08/22/19 21:17 08/26/19 06:11 Dilaudid IV 0.25 mg Q3H PRN Administration Pain, Moderate (4-6) Ceftriaxone Sodium 1 gm in 50 mls @ 100 mls/hr 08/22/19 22:00 08/25/19 22:45 Rocephin/Ns 1 Gm/50 Ml IV 100 mls/hr Q24HR@2200 KJ Administration Protocol Potassium Chloride 40 meq/ 1,020 mls @ 150 mls/hr 08/23/19 05:30 08/26/19 08:25 Dextrose IV 150 mls/hr DIRECT KJ Administration Octreotide Acetate 500 mcg/ 101 mls @ 5.05 mls/hr 08/23/19 12:00 08/26/19 00:18 Sodium Chloride IV 25 mcg/hr TITR KJ 5.05 mls/hr Administration Protocol 25 MCG/HR Potassium Chloride 10 meq in 100 mls @ 100 mls/hr 08/26/19 08:00 08/26/19 10:20 Kcl 10meq/100ml IV 08/26/19 11:59 100 mls/hr Q1H KJ Administration Lactulose 200 gm 08/23/19 07:00 08/26/19 07:57 Cephulac [place] 200 gm Q6H KJ Administration Pantoprazole Sodium 40 mg 08/25/19 11:00 08/26/19 09:09 Protonix IV 40 mg BID KJ Administration Sodium Chloride 10 ml 08/22/19 22:00 08/26/19 09:09 Sodium Chloride Flush Syringe 10 Ml IV 10 ml BID KJ Administration Sodium Chloride 10 ml 08/22/19 21:11 Sodium Chloride Flush Syringe 10 Ml IV PRN PRN LINE FLUSH
[2019-08-26] MEDS: CHLOROTHIAZIDE 500 MG VIAL IV SCH ×2 (11:27→23:31)
--- NOTE | 2019-08-26 11:38 | Gastroenterology Progress Note ---
Assessment and Plan 1.GI bleed/hematemesis 2.hepatic encephalopathy 3.H/o cirrhosis w/ esophageal varices -plt WNL -INR 2.10=> 1.51 -ammonia-267 on admission now WNL (38) -abd CT reviewed (liver normal, mild ascites) -H/H 9.1/28.5-s/p blood transfusion -continue to monitor H/H and transfuse as neededovernight or this am -last EGD 2015 showed grade I esophageal varices (not source of bleeding), complex hiatal hernia, and vascular lesion (?prolapsed hernia tissue, ?Gastric varices, ?GIST) in the stomach not amenable to endoscopic tx requiring embolizat ion by IR. -no plan for EGD at this time, unless overt bleeding develops -continue PPI BID -further CHORE TENDER/swallow eval pending for today with MBS -d/c octreotide and transition to nadalol as tolerated once cleared for PO -continue lactulose (transition to PO once able to tolerate; titrate to goal of BMs x 2-3/day-continue upon d/c) -continue empiric antibiotics -continue to trend labs and supportive care -no further GI recommendations at this time; patient to f/u in [facility] upon discharge for further management of cirrhosis -will sign off, please call if needed 4.LAVONNE-nephrology following 5.Hyperkalemia 6.Obstructive Uropathy 7.Hydronephrosis Subjective Date of service: 08/26/19 Principal diagnosis: GI bleed Interval history: Patient remains in ICU w/o acute distress. Encephalopathy continues to slowly improve (Alert and more communicative). No active signs of bleeding overnight or this am per nursing. Objective - Constitutional Vitals: Temp Pulse Resp BP Pulse Ox 98.6 F 72 24 145/54 96 08/26/19 08:00 08/26/19 09:00 08/26/19 09:00 08/26/19 09:00 08/26/19 09:10 General appearance: no acute distress - Respiratory Respiratory effort: normal - Cardiovascular Rhythm: regular - Gastrointestinal General gastrointestinal: Present: soft, non-distended, normal bowel sounds - Neurologic Neurological: other (alert oriented to person/place) - Labs CBC & Chem 7: 08/26/19 04:25 08/26/19 05:48 Labs: Laboratory Results - last 24 hr 08/22/19 08/25/19 08/25/19 12:39 10:45 10:45 WBC RBC Hgb Hct MCV MCH MCHC RDW Plt Count Sodium Potassium Chloride Carbon Dioxide Anion Gap BUN Creatinine Estimated GFR BUN/Creatinine Ratio Glucose Calcium Phosphorus Total Bilirubin AST ALT Alkaline Phosphatase Total Protein Albumin Albumin/Globulin Ratio Urine Color Yellow Urine Turbidity Clear Urine pH 6.0 Ur Specific [place] 1.012 Urine Protein <15 mg/dl Urine Glucose (UA) Neg Urine Ketones Neg Urine Blood Sm Urine Nitrite Neg Urine Bilirubin Neg Urine Urobilinogen < 2.0 Ur Leukocyte Esterase Sm Urine WBC (Auto) 17.0 H Urine RBC (Auto) 7.0 Urine Bacteria (Auto) 1+ Urine Mucus Few Urine Creatinine 70.8 H Urine Sodium 74 Blood Type O POSITIVE Antibody Screen Negative Crossmatch See Detail 08/25/19 08/26/19 08/26/19 23:01 04:25 05:48 WBC 26.8 H RBC 3.43 L Hgb 9.1 L Hct 28.5 L D MCV 83 L MCH 27 L MCHC 32 RDW 23.0 H Plt Count 293 Sodium 160 H 159 H Potassium 3.4 L Chloride 116.4 H Carbon Dioxide 30 Anion Gap 16 BUN 16 Creatinine 1.2 Estimated GFR > 60 BUN/Creatinine Ratio 13 Glucose 159 H Calcium 7.8 L Phosphorus 2.70 Total Bilirubin 0.50 AST 73 H ALT 28 Alkaline Phosphatase 118 Total Protein 6.2 L Albumin 2.9 L Albumin/Globulin Ratio 0.9 Urine Color Urine Turbidity Urine pH Ur Specific [place] Urine Protein Urine Glucose (UA) Urine Ketones Urine Blood Urine Nitrite Urine Bilirubin Urine Urobilinogen Ur Leukocyte Esterase Urine WBC (Auto) Urine RBC (Auto) Urine Bacteria (Auto) Urine Mucus Urine Creatinine Urine Sodium Blood Type Antibody Screen Crossmatch
[2019-08-26] MEDS ORDERED: LIPASE 10,500/PROTEASE 25,000/AMYLASE 43,750 (UNITS) DR CAP FEEDTUBE PRN (12:00)
[2019-08-26] MEDS ORDERED: SIMPLE SYRUP 15 ML FEEDTUBE PRN ×2 (12:00)
[2019-08-26] MEDS ORDERED: SODIUM BICARBONATE 325 MG TAB FEEDTUBE PRN (12:00)
--- NOTE | 2019-08-26 13:19 | Progress Note ---
Assessment and Plan Imp: 1. Obstructive uropathy/urinary retention 2. LAVONNE 2/2 #1 3. Hyperkalemia 4. R/o UTI 5. UGIB 6. Cirrhosis 7. Acute blood loss anemia 8. Hepatic encephalopathy 9. Hypernatremia Rec: 1. [place] placed; renal function improving; he is having post-obstructive diuresis now, on hypotonic IVFs and will defer management of the same to renal 2. Empiric Rocephin for now 3. PPI IV BID; Octreotide -> Nadolol once taking PO; stop Eliquis; trend H/H, INR; no EGD planned 4. SCDs to LEs 5. Lactulose per GI recs 6. PRBCs given 08/25/19 7. Updated daughter extensively on 08/23/19 re: his condition; per daughter his wishes were to be DNR/DNI 8. MBS ordered per ST recs No family present Subjective Date of service: 08/26/19 Principal diagnosis: GI bleed Interval history: No events. No reports of bleeding. No obvious complaints. Active Medications Lipase/Protease/Amylase ([place] 10,500 Unit) 1 each FEEDTUBE PRN PRN PRN Reason: For Clogged Feeding Tube Chlorothiazide Sodium (Diuril) 500 mg IV BID [facility] Last Admin: 08/26/19 11:27 Dose: 500 mg Documented by: Hydromorphone HCl (Dilaudid) 0.25 mg IV Q3H PRN PRN Reason: Pain, Moderate (4-6) Last Admin: 08/26/19 06:11 Dose: 0.25 mg Documented by: Ceftriaxone Sodium (Rocephin/Ns 1 Gm/50 Ml) 1 gm in 50 mls @ 100 mls/hr IV Q24HR@2200 [facility]; Protocol Last Admin: 08/25/19 22:45 Dose: 100 mls/hr Documented by: Potassium Chloride 40 meq/ (Dextrose) 1,020 mls @ 150 mls/hr IV DIRECT KJ Last Admin: 08/26/19 08:25 Dose: 150 mls/hr Documented by: Octreotide Acetate 500 mcg/ (Sodium Chloride) 101 mls @ 5.05 mls/hr IV TITR [facility]; Protocol Last Admin: 08/26/19 00:18 Dose: 25 mcg/hr, 5.05 mls/hr Documented by: Lactulose (Cephulac) 200 gm MO Q6H [facility] Last Admin: 08/26/19 07:57 Dose: 200 gm Documented by: Pantoprazole Sodium (Protonix) 40 mg IV BID [facility] Last Admin: 08/26/19 09:09 Dose: 40 mg Documented by: Simple Syrup (Simple Syrup) 15 ml FEEDTUBE PRN PRN PRN Reason: Hypoglycemia Simple Syrup (Simple Syrup) 30 ml FEEDTUBE PRN PRN PRN Reason: Hypoglycemia Sodium Bicarbonate (Sodium Bicarbonate) 325 mg FEEDTUBE PRN PRN PRN Reason: For Clogged Feeding Tube Sodium Chloride (Sodium Chloride Flush Syringe 10 Ml) 10 ml IV BID [facility] Last Admin: 08/26/19 09:09 Dose: 10 ml Documented by: Sodium Chloride (Sodium Chloride Flush Syringe 10 Ml) 10 ml IV PRN PRN PRN Reason: LINE FLUSH Objective Vital Signs - 12hr 08/26/19 08/26/19 08/26/19 01:30 02:00 02:30 Temperature Pulse Rate 78 62 60 Pulse Rate [ From Monitor] Respiratory 27 H 24 22 Rate Blood Pressure 156/60 154/55 148/55 O2 Sat by Pulse 96 97 98 Oximetry 08/26/19 08/26/19 08/26/19 03:00 03:30 04:00 Temperature 98.8 F Pulse Rate 71 61 70 Pulse Rate [ From Monitor] Respiratory 23 22 22 Rate Blood Pressure 155/63 150/57 153/74 O2 Sat by Pulse 100 98 98 Oximetry 08/26/19 08/26/19 08/26/19 04:30 05:00 05:30 Temperature Pulse Rate 69 70 60 Pulse Rate [ From Monitor] Respiratory 23 25 H 23 Rate Blood Pressure 159/61 142/50 141/53 O2 Sat by Pulse 97 97 99 Oximetry 08/26/19 08/26/19 08/26/19 06:00 06:30 07:00 Temperature Pulse Rate 69 70 60 Pulse Rate [ From Monitor] Respiratory 24 22 20 Rate Blood Pressure 130/55 141/53 129/50 O2 Sat by Pulse 98 98 100 Oximetry 08/26/19 08/26/19 08/26/19 07:30 08:00 09:00 Temperature 98.6 F Pulse Rate 60 68 72 Pulse Rate [ 68 From Monitor] Respiratory 24 25 H 24 Rate Blood Pressure 149/59 122/44 145/54 O2 Sat by Pulse 99 98 97 Oximetry 08/26/19 08/26/19 08/26/19 09:10 10:00 11:00 Temperature Pulse Rate 61 60 Pulse Rate [ From Monitor] Respiratory 25 H 25 H Rate Blood Pressure 165/48 110/54 O2 Sat by Pulse 96 99 98 Oximetry 08/26/19 08/26/19 12:00 13:00 Temperature 99.2 F Pulse Rate 64 66 Pulse Rate [ 66 From Monitor] Respiratory 25 H 15 Rate Blood Pressure 170/61 O2 Sat by Pulse 99 100 Oximetry Constitutional: no acute distress, alert Eyes: non-icteric ENT: oropharynx dry Neck: supple Effort: normal Ascultation: Bilateral: wheezes (faint expiratory wheezes bilaterally) Cardiovascular: other (tachy, RR; no mrg) Gastrointestinal: normoactive bowel sounds, soft, non-tender, non-distended Extremities: anasarca (2+ bilateral LE edema) Neurologic: non-focal exam Psychiatric: mood appropriate, affect normal CBC and BMP: 08/26/19 04:25 08/26/19 05:48 ABG, PT/INR, D-dimer: PT/INR, D-dimer PT 17.8 Sec. (12.2-14.9) H 08/24/19 04:07 INR 1.51 (0.87-1.13) H 08/24/19 04:07 Abnormal lab findings: Abnormal Labs 08/22/19 08/22/19 08/22/19 12:14 12:39 12:39 WBC 13.0 H RBC 3.10 L Hgb 7.9 L Hct 26.7 L MCV MCH 26 L MCHC 30 L RDW 25.6 H Plt Count Lymph % (Auto) 9.3 L [place] % (Auto) Lymph # [place] # Seg Neutrophils % 84.0 H Seg Neuts % (Manual) Lymphocytes % (Manual) Seg Neutrophils # 10.9 H Seg Neutrophils # Man Lymphocytes # (Manual) Monocytes # (Manual) PT 23.1 H INR 2.10 H Sodium Potassium 7.2 H* Chloride Carbon Dioxide 12 L BUN 195 H Creatinine 15.2 H Glucose 132 H POC Glucose Calcium 7.5 L Phosphorus Magnesium 3.50 H AST Alkaline Phosphatase 136 H Ammonia NT-Pro-B Natriuret Pep 1788 H Total Protein Albumin 3.0 L Urine WBC (Auto) Urine Creatinine Crossmatch 08/22/19 08/22/19 08/22/19 12:39 12:39 15:12 WBC RBC Hgb Hct MCV MCH MCHC RDW Plt Count Lymph % (Auto) [place] % (Auto) Lymph # [place] # Seg Neutrophils % Seg Neuts % (Manual) Lymphocytes % (Manual) Seg Neutrophils # Seg Neutrophils # Man Lymphocytes # (Manual) Monocytes # (Manual) PT INR Sodium Potassium Chloride Carbon Dioxide BUN Creatinine Glucose POC Glucose Calcium Phosphorus Magnesium AST Alkaline Phosphatase Ammonia 267.0 H NT-Pro-B Natriuret Pep Total Protein Albumin Urine WBC (Auto) 22.0 H Urine Creatinine Crossmatch See Detail 08/22/19 08/22/19 08/23/19 18:13 23:07 03:46 WBC 12.2 H RBC 2.73 L Hgb 7.7 L 7.0 L Hct 23.6 L 21.5 L MCV 79 L MCH 26 L MCHC RDW 24.9 H Plt Count Lymph % (Auto) 6.9 L [place] % (Auto) 11.4 H Lymph # 0.8 L [place] # 1.4 H Seg Neutrophils % 81.6 H Seg Neuts % (Manual) Lymphocytes % (Manual) Seg Neutrophils # 10.0 H Seg Neutrophils # Man Lymphocytes # (Manual) Monocytes # (Manual) PT INR Sodium 148 H D Potassium Chloride 107.1 H Carbon Dioxide 15 L BUN 173 H Creatinine 11.0 H Glucose 151 H POC Glucose Calcium 8.2 L Phosphorus Magnesium AST Alkaline Phosphatase Ammonia NT-Pro-B Natriuret Pep Total Protein Albumin Urine WBC (Auto) Urine Creatinine Crossmatch 08/23/19 08/23/19 08/24/19 03:46 13:52 00:25 WBC RBC Hgb 7.5 L Hct 23.6 L MCV MCH MCHC RDW Plt Count Lymph % (Auto) [place] % (Auto) Lymph # [place] # Seg Neutrophils % Seg Neuts % (Manual) Lymphocytes % (Manual) Seg Neutrophils # Seg Neutrophils # Man Lymphocytes # (Manual) Monocytes # (Manual) PT INR Sodium 160 H D Potassium 3.4 L D Chloride 121.8 H Carbon Dioxide BUN 116 H Creatinine 5.4 H D Glucose 209 H POC Glucose 181 H Calcium Phosphorus Magnesium AST Alkaline Phosphatase Ammonia NT-Pro-B Natriuret Pep Total Protein Albumin Urine WBC (Auto) Urine Creatinine Crossmatch 08/24/19 08/24/19 08/24/19 04:07 04:07 04:07 WBC 20.5 H RBC 2.97 L Hgb 7.7 L Hct 23.5 L MCV 79 L MCH 26 L MCHC RDW 24.4 H Plt Count 482 H Lymph % (Auto) [place] % (Auto) Lymph # [place] # Seg Neutrophils % Seg Neuts % (Manual) 92.0 H Lymphocytes % (Manual) 3.0 L Seg Neutrophils # Seg Neutrophils # Man 18.9 H Lymphocytes # (Manual) 0.6 L Monocytes # (Manual) 1.0 H PT 17.8 H INR 1.51 H Sodium 172 H* D Potassium Chloride 131.1 H Carbon Dioxide BUN 44 H Creatinine Glucose 175 H POC Glucose Calcium Phosphorus 2.30 L Magnesium AST Alkaline Phosphatase Ammonia NT-Pro-B Natriuret Pep Total Protein Albumin Urine WBC (Auto) Urine Creatinine Crossmatch 08/24/19 08/24/19 08/24/19 09:28 11:36 13:18 WBC RBC Hgb Hct MCV MCH MCHC RDW Plt Count Lymph % (Auto) [place] % (Auto) Lymph # [place] # Seg Neutrophils % Seg Neuts % (Manual) Lymphocytes % (Manual) Seg Neutrophils # Seg Neutrophils # Man Lymphocytes # (Manual) Monocytes # (Manual) PT INR Sodium 171 H* 172 H* Potassium Chloride Carbon Dioxide BUN Creatinine Glucose POC Glucose 190 H Calcium Phosphorus Magnesium AST Alkaline Phosphatase Ammonia NT-Pro-B Natriuret Pep Total Protein Albumin Urine WBC (Auto) Urine Creatinine Crossmatch 08/24/19 08/24/19 08/24/19 16:44 19:31 19:31 WBC RBC Hgb 6.9 L Hct 22.8 L MCV MCH MCHC RDW Plt Count Lymph % (Auto) [place] % (Auto) Lymph # [place] # Seg Neutrophils % Seg Neuts % (Manual) Lymphocytes % (Manual) Seg Neutrophils # Seg Neutrophils # Man Lymphocytes # (Manual) Monocytes # (Manual) PT INR Sodium 170 H* Potassium Chloride Carbon Dioxide BUN Creatinine Glucose POC Glucose 203 H Calcium Phosphorus Magnesium AST Alkaline Phosphatase Ammonia NT-Pro-B Natriuret Pep Total Protein Albumin Urine WBC (Auto) Urine Creatinine Crossmatch 08/25/19 08/25/19 08/25/19 05:02 05:02 09:58 WBC RBC Hgb 6.7 L Hct 22.0 L MCV MCH MCHC RDW Plt Count Lymph % (Auto) [place] % (Auto) Lymph # [place] # Seg Neutrophils % Seg Neuts % (Manual) Lymphocytes % (Manual) Seg Neutrophils # Seg Neutrophils # Man Lymphocytes # (Manual) Monocytes # (Manual) PT INR Sodium 169 H* 166 H* Potassium Chloride 126.0 H Carbon Dioxide BUN 23 H Creatinine Glucose 149 H POC Glucose Calcium Phosphorus 2.40 L Magnesium AST Alkaline Phosphatase Ammonia NT-Pro-B Natriuret Pep Total Protein Albumin Urine WBC (Auto) Urine Creatinine Crossmatch 08/25/19 08/25/19 08/25/19 10:45 10:45 23:01 WBC RBC Hgb Hct MCV MCH MCHC RDW Plt Count Lymph % (Auto) [place] % (Auto) Lymph # [place] # Seg Neutrophils % Seg Neuts % (Manual) Lymphocytes % (Manual) Seg Neutrophils # Seg Neutrophils # Man Lymphocytes # (Manual) Monocytes # (Manual) PT INR Sodium 160 H Potassium Chloride Carbon Dioxide BUN Creatinine Glucose POC Glucose Calcium Phosphorus Magnesium AST Alkaline Phosphatase Ammonia NT-Pro-B Natriuret Pep Total Protein Albumin Urine WBC (Auto) 17.0 H Urine Creatinine 70.8 H Crossmatch 08/26/19 08/26/19 04:25 05:48 WBC 26.8 H RBC 3.43 L Hgb 9.1 L Hct 28.5 L D MCV 83 L MCH 27 L MCHC RDW 23.0 H Plt Count Lymph % (Auto) [place] % (Auto) Lymph # [place] # Seg Neutrophils % Seg Neuts % (Manual) Lymphocytes % (Manual) Seg Neutrophils # Seg Neutrophils # Man Lymphocytes # (Manual) Monocytes # (Manual) PT INR Sodium 159 H Potassium 3.4 L Chloride 116.4 H Carbon Dioxide BUN Creatinine Glucose 159 H POC Glucose Calcium 7.8 L Phosphorus Magnesium AST 73 H Alkaline Phosphatase Ammonia NT-Pro-B Natriuret Pep Total Protein 6.2 L Albumin 2.9 L Urine WBC (Auto) Urine Creatinine Crossmatch Chest x-ray: report reviewed, image reviewed
--- NOTE | 2019-08-26 15:48 | Fluoroscopy Report ---
MODIFIED BARIUM SWALLOW INDICATION: Dysphagia TECHNIQUE: Swallowing was evaluated in the lateral position under direct fluoroscopy. FINDINGS: The patient was evaluated with thin liquids, nectar and puree consistencies.. Vallecular and piriform sinus stasis was witnessed with all 3 consistencies. Silent aspiration was witnessed with thin liquids. IMPRESSION: Silent aspiration was witnessed with thin liquids. Please refer to the formal report by speech pathology. Fluoroscopic time: 3.8 minutes Number of fluoroscopic images: 1 Signer Name: Eliesre Parker Jr, MD Signed: 08/26/2019 3:44 PM Workstation Name: [id number]
--- NOTE | 2019-08-26 16:37 | Progress Note ---
Assessment and Plan 1. Acute kidney injury: LAVONNE in the setting of obstructive uropathy =/- vasomotor insult. CT abdomen showed obstructive nephropathy. S/p ferguson catheter. Renal function is better. Monitor renal function. Avoid nephrotoxic agents. Meds dosage based on GFR. 2. FEN: Hypernatremia, continue IV D5W and Diuril. Features not suggestive of DI. Hyperkalemia, improved. Metabolic acidosis, improved. Monitor lytes. 3. GI bleed/hematemesis: H/o Esophageal varices. Octreotide drip. Followed by GI. 4. H/o Cirrhosis. 5. Hepatic encephalopathy. 6. Acute blood loss Anemia: POA. S/p PRBC. 7. Hyperglycemia. Examination: General appearance: well-developed, appears stated age, no distress HEENT: ATNC, [place] Neck: trachea midline Respiratory: Clear to Ascultation Heart: S1S2, regular, no murmur Gastrointestinal: normoactive bowel sounds, NT Integumentary: stasis changes R leg : Ferguson catheter Neurologic: able to move extremities, R sided weakness noted, aphasia Musculoskeletal: L BKA Subjective Date of service: 08/26/19 Principal diagnosis: GI bleed Interval history: Patient was seen and examined at the bedside. Objective - Vital Signs Vital signs: Vital Signs - 12hr 08/26/19 08/26/19 08/26/19 05:00 05:30 06:00 Temperature Pulse Rate 70 60 69 Pulse Rate [ From Monitor] Respiratory 25 H 23 24 Rate Blood Pressure 142/50 141/53 130/55 O2 Sat by Pulse 97 99 98 Oximetry 08/26/19 08/26/19 08/26/19 06:30 07:00 07:30 Temperature Pulse Rate 70 60 60 Pulse Rate [ From Monitor] Respiratory 22 20 24 Rate Blood Pressure 141/53 129/50 149/59 O2 Sat by Pulse 98 100 99 Oximetry 08/26/19 08/26/19 08/26/19 08:00 09:00 09:10 Temperature 98.6 F Pulse Rate 68 72 Pulse Rate [ 68 From Monitor] Respiratory 25 H 24 Rate Blood Pressure 122/44 145/54 O2 Sat by Pulse 98 97 96 Oximetry 08/26/19 08/26/19 08/26/19 10:00 11:00 12:00 Temperature 99.2 F Pulse Rate 61 60 64 Pulse Rate [ 66 From Monitor] Respiratory 25 H 25 H 25 H Rate Blood Pressure 165/48 110/54 170/61 O2 Sat by Pulse 99 98 99 Oximetry 08/26/19 08/26/19 13:00 16:09 Temperature Pulse Rate 66 Pulse Rate [ From Monitor] Respiratory 15 Rate Blood Pressure O2 Sat by Pulse 100 97 Oximetry - Lab 08/26/19 04:25 08/26/19 05:48 Most recent lab results Calcium 7.8 mg/dL (8.4-10.2) L 08/26/19 05:48 Phosphorus 2.70 mg/dL (2.5-4.5) 08/26/19 05:48 Magnesium 2.00 mg/dL (1.7-2.3) 08/24/19 04:07 Urine Creatinine 70.8 mg/dL (0.1-20.0) H 08/25/19 10:45 Urine Sodium 74 mmol/L 08/25/19 10:45 Medications & Allergies - Medications Allergies/Adverse Reactions: Allergies No Known Allergies Allergy (Unverified 07/11/13 08:29) Home Medications: Home Medications Medication Instructions Recorded Confirmed Last Taken Type Apixaban [Eliquis] 5 mg PO BID 08/22/19 08/22/19 Unknown History Ascorbic Acid [Vitamin C] 500 mg PO Q12H 08/22/19 08/22/19 Unknown History AtorvaSTATin [Lipitor] 40 mg PO QHS 08/22/19 08/22/19 Unknown History Carvedilol [Coreg] 6.25 mg PO BID 08/22/19 08/22/19 Unknown History Dicyclomine [Bentyl] 20 mg PO QID PRN 08/22/19 08/22/19 Unknown History Docusate Sodium [Colace] 100 mg PO BID 08/22/19 08/22/19 Unknown History Flomax 0.4 mg PO QHS 08/22/19 08/22/19 Unknown History Folic Acid [Folvite] 1 mg PO QDAY 08/22/19 08/22/19 Unknown History HYDROcodone/APAP 5-325 [[place] 1 each PO Q6HR PRN 08/22/19 08/22/19 Unknown History 5/325] Ibuprofen [Motrin] 600 mg PO Q8H PRN 08/22/19 08/22/19 Unknown History Lisinopril [Zestril TAB] 10 mg PO QDAY 08/22/19 08/22/19 Unknown History Loperamide [Imodium] 2 mg PO BID PRN 08/22/19 08/22/19 Unknown History Magnesium Hydroxide [Milk of 400 mg PO Q24HR PRN 08/22/19 08/22/19 Unknown History Magnesia] Melatonin 3 mg PO QHS 08/22/19 08/22/19 Unknown History Multivit with Minerals No.55 1 tab PO DAILY 08/22/19 08/22/19 Unknown History Pantoprazole [Protonix] 40 mg PO QDAY 08/22/19 08/22/19 Unknown History Sennosides/Docusate Sodium [[place] 1 each PO DAILY 08/22/19 08/22/19 Unknown History Plus Tablet] diphenhydrAMINE [Benadryl CAP] 25 mg PO Q6HR PRN 08/22/19 08/22/19 Unknown History Active Medications: Generic Name Dose Route Start Last Admin Trade Name Nikunjq PRN Reason Stop Dose Admin Lipase/Protease/Amylase 1 each 08/26/19 12:00 Pancreazpaloma [place] 10,500 Unit FEEDTUBE PRN PRN For Clogged Feeding Tube Chlorothiazide Sodium 500 mg 08/25/19 10:00 08/26/19 11:27 Diuril IV 500 mg BID KJ Administration Hydromorphone HCl 0.25 mg 08/22/19 21:17 08/26/19 06:11 Dilaudid IV 0.25 mg Q3H PRN Administration Pain, Moderate (4-6) Ceftriaxone Sodium 1 gm in 50 mls @ 100 mls/hr 08/22/19 22:00 08/25/19 22:45 Rocephin/Ns 1 Gm/50 Ml IV 100 mls/hr Q24HR@2200 KJ Administration Protocol Potassium Chloride 40 meq/ 1,020 mls @ 150 mls/hr 08/23/19 05:30 08/26/19 08:25 Dextrose IV 150 mls/hr DIRECT KJ Administration Octreotide Acetate 500 mcg/ 101 mls @ 5.05 mls/hr 08/23/19 12:00 08/26/19 00:18 Sodium Chloride IV 25 mcg/hr TITR KJ 5.05 mls/hr Administration Protocol 25 MCG/HR Lactulose 200 gm 08/23/19 07:00 08/26/19 07:57 Cephulac [place] 200 gm Q6H KJ Administration Pantoprazole Sodium 40 mg 08/25/19 11:00 08/26/19 09:09 Protonix IV 40 mg BID KJ Administration Simple Syrup 15 ml 08/26/19 12:00 Simple Syrup FEEDTUBE PRN PRN Hypoglycemia Simple Syrup 30 ml 08/26/19 12:00 Simple Syrup FEEDTUBE PRN PRN Hypoglycemia Sodium Bicarbonate 325 mg 08/26/19 12:00 Sodium Bicarbonate FEEDTUBE PRN PRN For Clogged Feeding Tube Sodium Chloride 10 ml 08/22/19 22:00 08/26/19 09:09 Sodium Chloride Flush Syringe 10 Ml IV 10 ml BID KJ Administration Sodium Chloride 10 ml 08/22/19 21:11 Sodium Chloride Flush Syringe 10 Ml IV PRN PRN LINE FLUSH
[2019-08-26] MEDS: cefTRIAXone/NS 1 GM/50 ML 1 GM/50 ML BAG IV SCH (22:44)
--- NOTE | 2019-08-26 23:34 | XRay Report ---
ABDOMEN 08/26/2019 INDICATION / CLINICAL INFORMATION: verify nasogastric tube placement. COMPARISON: 08/23/2019 FINDINGS: The radiopaque tip of the feeding tube is positioned in the mid stomach with the tip directed to the left side. Signer Name: Dagoberto Christensen MD Signed: 08/26/2019 11:29 PM Workstation Name: [id number]
[2019-08-27] MEDS: LACTULOSE ENEMA 1000 ML PR SCH ×2 (01:00→08:08)
--- NOTE | 2019-08-27 03:38 | XRay Report ---
ABDOMEN 08/27/2019 INDICATION / CLINICAL INFORMATION: verify NG tube placement. COMPARISON: 08/26/2019 FINDINGS: The feeding tube is positioned in the stomach. The tip is directed to the right side. Signer Name: Dagoberto Christensen MD Signed: 08/27/2019 3:34 AM Workstation Name: [id number]
[2019-08-27 05:30] LABS: Hematocrit 28.7 % (35.5-45.6); Hemoglobin 9.1 gm/dl (11.8-15.2); Mean Corpuscular HGB Conc 32 % (32-34); Mean Corpuscular Volume 84 fl (84-94); Platelet Count 260 K/mm3 (140-440); Red Blood Count 3.39 M/mm3 (3.65-5.03)
[2019-08-27 05:31] LABS: Red Cell Distribution Width 22.4 % (13.2-15.2)
[2019-08-27 05:45] LABS: BUN/Creatinine Ratio 16; Blood Urea Nitrogen 14 mg/dL (9-20); Calcium 7.6 mg/dL (8.4-10.2); Hemolysis Index 1
[2019-08-27] MEDS ORDERED: POTASSIUM PHOSPHATE IV ONE (08:33)
[2019-08-27] MEDS ORDERED: D5W IV ONE (08:33)
[2019-08-27] MEDS ORDERED: MAGNESIUM SULFATE 4 GM/100 ML BAG IV ONE (08:34)
[2019-08-27] MEDS ORDERED: POTASSIUM PHOSPHATE 45 MMOL in DEXTROSE 5% IN WATER 500 ML IV ONE (09:00)
[2019-08-27] MEDS: POTASSIUM CHLORIDE 40 MEQ in DEXTROSE 5% IN WATER 1,000 ML IV SCH ×3 (09:03→22:31)
[2019-08-27] MEDS: LANSOPRAZOLE 30 MG SOLUTAB FEEDTUBE SCH ×2 (10:59→22:25)
[2019-08-27] MEDS: CHLOROTHIAZIDE 500 MG VIAL IV SCH ×2 (10:59→22:24)
--- NOTE | 2019-08-27 11:20 | Progress Note ---
Assessment and Plan Assessment and plan: This is a 64 year old man resident of a [place] with known hx of DM, HTN, Cirrhosis w/ varices, CVA and CAD who was brought to [facility] ED for evaluation of AMS and abdominal distention. Patient on admission was unable to provide any information, per family he is total care although with preserved mental function . He also informs us that the patient has had hemetemesis but not report of nausea or prior vomiting * In the ED the Patient was noted to have creat 15.2, K 7.2, HB 7.[address] abdomen showed obstructive uropathy. He is s/p ferguson catheter. Nephrology was consulted for further evaluation. * Within 48 hrs he was noted to have a sodium of 170s * PER GI * hold blood thinning medications, BMs overnight with continue dark/black stool No hematemesis. * last EGD 2015 showed grade I esophageal varices (not source of bleeding), complex hiatal hernia, and vascular lesion (?prolapsed hernia tissue, ?Gastric varices, ?GIST) in the stomach not amenable to endoscopic tx requiring embolization by IR. * Failed swallow eval 08/25/19 Acute blood loss anemia Concerning for UGIB Hepatic encephalopathy Leukocytosis- ?source. Severe Hypernatremia- Improved Metabolic Acidosis with Uremia Obstructive Uropathy/urinary retention LAVONNE 2/2 To Obstructive uropathy with possible underlying vasomotor nephropathy- improving Hyperkalemia-resolved Acute Cystitis Hx of Prior CVA Cirrhosis WITH HX OF VARICES Secondary coagulopathy Plan Continue supportive care Obtain CT head to ensure no other pathology Aspiration precautions, as silent aspiration was noted on Video swallow Will discuss with family and see if PEG is appropriate Switch to PO meds VIA NGT Change octeriotide and ppi to po equivalent. Discussed with GI doubt continued GI bleed, will work on transition to PO Hypernatremia, showing marked improvement No further evidence of Bleeding, GI signed off Transfused total PRBC 3 units with good response anemia Continue ferguson, will likely discharge with ferguson to leg bag and outpatient Urology eval Continue Empiric abx, await Urine culture Continue Lactulose enema Advance life care plan, patient per family wish per daughter his wishes were to be DNR/DNI and I asked her to sign the appropriate documents stating such, as his legal next of kin (along with his son)- confirmed with them and signed Continue Neuro check Poor prognosis. Discussed with family Labs in am History Interval history: Patient seen and examined, resting comfortable, mental status Continues to improve Although expressive aphasia and left upper ext weakness still persist, possible baseline, No other adverse event noted Hospitalist Physical - Physical exam Narrative exam: General appearance: Present: no acute distress, Altered - EENT ENT: hearing intact - Neck Neck: Present: supple, normal ROM - Respiratory Respiratory effort: normal Respiratory: bilateral: CTA - Cardiovascular Rhythm: regular Heart Sounds: Present: S1 & S2 - Extremities Extremity abnormal: other (Left BKA) - Abdominal General gastrointestinal: soft, non-tender, distended, normal bowel sounds - Integumentary Integumentary: Present: warm, dry, noted echymosis right antecubital region - Neurologic Neurologic: other (Awake, Oriented to person, residual left sided weakness from prev stroke) ON Restraints for safety on right upper exxt - Constitutional Vitals: Temp Pulse Resp BP Pulse Ox 98.4 F 71 30 H 167/93 93 08/27/19 03:31 08/27/19 06:00 08/27/19 06:00 08/27/19 06:00 08/27/19 06:00 General appearance: Present: no acute distress Results - Labs CBC & Chem 7: 08/27/19 05:15 08/27/19 05:15 Labs: Laboratory Last Values WBC 23.8 K/mm3 (4.5-11.0) H 08/27/19 05:15 RBC 3.39 M/mm3 (3.65-5.03) L 08/27/19 05:15 Hgb 9.1 gm/dl (11.8-15.2) L 08/27/19 05:15 Hct 28.7 % (35.5-45.6) L 08/27/19 05:15 MCV 84 fl (84-94) 08/27/19 05:15 MCH 27 pg (28-32) L 08/27/19 05:15 MCHC 32 % (32-34) 08/27/19 05:15 RDW 22.4 % (13.2-15.2) H 08/27/19 05:15 Plt Count 260 K/mm3 (140-440) 08/27/19 05:15 Lymph % (Auto) 6.9 % (13.4-35.0) L 08/23/19 03:46 [place] % (Auto) [employer] 08/24/19 04:07 Eos % (Auto) 0.0 % (0.0-4.3) 08/23/19 03:46 Baso % (Auto) 0.1 % (0.0-1.8) 08/23/19 03:46 Lymph # 0.8 K/mm3 (1.2-5.4) L 08/23/19 03:46 [place] # 1.4 K/mm3 (0.0-0.8) H 08/23/19 03:46 Eos # 0.0 K/mm3 (0.0-0.4) 08/23/19 03:46 Baso # 0.0 K/mm3 (0.0-0.1) 08/23/19 03:46 Add Manual Diff Complete 08/24/19 04:07 Total Counted 100 08/24/19 04:07 Seg Neutrophils % 81.6 % (40.0-70.0) H 08/23/19 03:46 Seg Neuts % (Manual) 92.0 % (40.0-70.0) H 08/24/19 04:07 Band Neutrophils % 0 % 08/24/19 04:07 Lymphocytes % (Manual) 3.0 % (13.4-35.0) L 08/24/19 04:07 Reactive Lymphs % (Man) 0 % 08/24/19 04:07 Monocytes % (Manual) 5.0 % (0.0-7.3) 08/24/19 04:07 Eosinophils % (Manual) 0 % (0.0-4.3) 08/24/19 04:07 Basophils % (Manual) 0 % (0.0-1.8) 08/24/19 04:07 Metamyelocytes % 0 % 08/24/19 04:07 Myelocytes % 0 % 08/24/19 04:07 Promyelocytes % 0 % 08/24/19 04:07 Blast Cells % 0 % 08/24/19 04:07 Nucleated RBC % Not Reportable 08/24/19 04:07 Seg Neutrophils # 10.0 K/mm3 (1.8-7.7) H 08/23/19 03:46 Seg Neutrophils # Man 18.9 K/mm3 (1.8-7.7) H 08/24/19 04:07 Band Neutrophils # 0.0 K/mm3 08/24/19 04:07 Lymphocytes # (Manual) 0.6 K/mm3 (1.2-5.4) L 08/24/19 04:07 Abs React Lymphs (Man) 0.0 K/mm3 08/24/19 04:07 Monocytes # (Manual) 1.0 K/mm3 (0.0-0.8) H 08/24/19 04:07 Eosinophils # (Manual) 0.0 K/mm3 (0.0-0.4) 08/24/19 04:07 Basophils # (Manual) 0.0 K/mm3 (0.0-0.1) 08/24/19 04:07 Metamyelocytes # 0.0 K/mm3 08/24/19 04:07 Myelocytes # 0.0 K/mm3 08/24/19 04:07 Promyelocytes # 0.0 K/mm3 08/24/19 04:07 Blast Cells # 0.0 K/mm3 08/24/19 04:07 WBC Morphology Not Reportable 08/24/19 04:07 Hypersegmented Neuts Not Reportable 08/24/19 04:07 Hyposegmented Neuts Not Reportable 08/24/19 04:07 Hypogranular Neuts Not Reportable 08/24/19 04:07 Smudge Cells Not Reportable 08/24/19 04:07 Toxic Granulation Not Reportable 08/24/19 04:07 Toxic Vacuolation Not Reportable 08/24/19 04:07 Dohle Bodies Not Reportable 08/24/19 04:07 Pelger-Huet Anomaly Not Reportable 08/24/19 04:07 Ramonita Rods Not Reportable 08/24/19 04:07 Platelet Estimate Consistent w auto 08/24/19 04:07 Clumped Platelets Not Reportable 08/24/19 04:07 Plt Clumps, EDTA Not Reportable 08/24/19 04:07 Large Platelets Not Reportable 08/24/19 04:07 Giant Platelets Not Reportable 08/24/19 04:07 Platelet Satelliting Not Reportable 08/24/19 04:07 Plt Morphology Comment Not Reportable 08/24/19 04:07 RBC Morphology Not Reportable 08/24/19 04:07 Dimorphic RBCs Not Reportable 08/24/19 04:07 Polychromasia Not Reportable 08/24/19 04:07 Hypochromasia 1+ 08/24/19 04:07 Poikilocytosis 2+ 08/24/19 04:07 Anisocytosis 2+ 08/24/19 04:07 Microcytosis Not Reportable 08/24/19 04:07 Macrocytosis Not Reportable 08/24/19 04:07 Spherocytes Not Reportable 08/24/19 04:07 Pappenheimer Bodies Not Reportable 08/24/19 04:07 Sickle Cells Not Reportable 08/24/19 04:07 Target Cells 2+ 08/24/19 04:07 Tear Drop Cells Not Reportable 08/24/19 04:07 Ovalocytes Not Reportable 08/24/19 04:07 Helmet Cells Not Reportable 08/24/19 04:07 Valle-Wagoner Bodies Not Reportable 08/24/19 04:07 [place] Rings Not Reportable 08/24/19 04:07 Freddy Cells Not Reportable 08/24/19 04:07 Bite Cells Not Reportable 08/24/19 04:07 Crenated Cell Not Reportable 08/24/19 04:07 Elliptocytes 1+ 08/24/19 04:07 Acanthocytes (Spur) Not Reportable 08/24/19 04:07 Rouleaux Not Reportable 08/24/19 04:07 Hemoglobin C Crystals Not Reportable 08/24/19 04:07 Schistocytes Not Reportable 08/24/19 04:07 Malaria parasites Not Reportable 08/24/19 04:07 Noel Bodies Not Reportable 08/24/19 04:07 Hem Pathologist Commnt No 08/24/19 04:07 PT 17.8 Sec. (12.2-14.9) H 08/24/19 04:07 INR 1.51 (0.87-1.13) H 08/24/19 04:07 APTT 31.8 Sec. (24.2-36.6) 08/22/19 12:39 Sodium 147 mmol/L (137-145) H D 08/27/19 05:15 Potassium 3.2 mmol/L (3.6-5.0) L 08/27/19 05:15 Chloride 106.1 mmol/L (98-107) 08/27/19 05:15 Carbon Dioxide 29 mmol/L (22-30) 08/27/19 05:15 Anion Gap 15 mmol/L 08/27/19 05:15 BUN 14 mg/dL (9-20) 08/27/19 05:15 Creatinine 0.9 mg/dL (0.8-1.5) 08/27/19 05:15 Estimated GFR > 60 ml/min 08/27/19 05:15 BUN/Creatinine Ratio 16 % 08/27/19 05:15 Glucose 154 mg/dL (75-100) H 08/27/19 05:15 POC Glucose 203 (70-105) H 08/24/19 16:44 Osmolality 351 Mosm/kg 08/25/19 09:58 Lactic Acid 1.60 mmol/L (0.7-2.0) 08/22/19 23:07 Calcium 7.6 mg/dL (8.4-10.2) L 08/27/19 05:15 Phosphorus 2.10 mg/dL (2.5-4.5) L D 08/27/19 05:15 Magnesium 1.30 mg/dL (1.7-2.3) L 08/27/19 05:15 Total Bilirubin 0.50 mg/dL (0.1-1.2) 08/26/19 05:48 Direct Bilirubin < 0.2 mg/dL (0-0.2) 08/22/19 12:39 Indirect Bilirubin 0.1 mg/dL 08/22/19 12:39 AST 73 units/L (5-40) H 08/26/19 05:48 ALT 28 units/L (7-56) 08/26/19 05:48 Alkaline Phosphatase 118 units/L (35-129) 08/26/19 05:48 Ammonia 38.0 umol/L (25-60) 08/24/19 04:07 Troponin T < 0.010 ng/mL (0.00-0.029) 08/22/19 12:39 NT-Pro-B Natriuret Pep 1788 pg/mL (0-900) H 08/22/19 12:39 Total Protein 6.2 g/dL (6.3-8.2) L 08/26/19 05:48 Albumin 2.9 g/dL (3.9-5) L 08/26/19 05:48 Albumin/Globulin Ratio 0.9 % 08/26/19 05:48 Lipase 18 units/L (13-60) 08/22/19 12:39 Urine Color Yellow (Yellow) 08/25/19 10:45 Urine Turbidity Clear (Clear) 08/25/19 10:45 Urine pH 6.0 (5.0-7.0) 08/25/19 10:45 Ur Specific [place] 1.012 (1.003-1.030) 08/25/19 10:45 Urine Protein <15 mg/dl mg/dL (Negative) 08/25/19 10:45 Urine Glucose (UA) Neg mg/dL (Negative) 08/25/19 10:45 Urine Ketones Neg mg/dL (Negative) 08/25/19 10:45 Urine Blood Sm (Negative) 08/25/19 10:45 Urine Nitrite Neg (Negative) 08/25/19 10:45 Urine Bilirubin Neg (Negative) 08/25/19 10:45 Urine Urobilinogen < 2.0 mg/dL (<2.0) 08/25/19 10:45 Ur Leukocyte Esterase Sm (Negative) 08/25/19 10:45 Urine WBC (Auto) 17.0 /HPF (0.0-6.0) H 08/25/19 10:45 Urine RBC (Auto) 7.0 /HPF (0.0-6.0) 08/25/19 10:45 Urine Bacteria (Auto) 1+ /HPF (Negative) 08/25/19 10:45 Urine Mucus Few /HPF 08/25/19 10:45 Urine Osmolality 455 Mosm/kg 08/25/19 10:45 Urine Creatinine 70.8 mg/dL (0.1-20.0) H 08/25/19 10:45 Urine Sodium 74 mmol/L 08/25/19 10:45 Blood Type O POSITIVE 08/22/19 12:39 Antibody Screen Negative 08/22/19 12:39 Crossmatch See Detail 08/22/19 12:39 Active Medications - Current Medications Current Medications: Generic Name Dose Route Start Last Admin Trade Name Freq PRN Reason Stop Dose Admin Lipase/Protease/Amylase 1 each 08/26/19 12:[address] 10,500 Unit FEEDTUBE PRN PRN For Clogged Feeding Tube Chlorothiazide Sodium 500 mg 08/25/19 10:00 08/27/19 10:59 Diuril IV 500 mg BID KJ Administration Hydromorphone HCl 0.25 mg 08/22/19 21:17 08/26/19 06:11 Dilaudid IV 0.25 mg Q3H PRN Administration Pain, Moderate (4-6) Ceftriaxone Sodium 1 gm in 50 mls @ 100 mls/hr 08/22/19 22:00 08/26/19 22:44 Rocephin/Ns 1 Gm/50 Ml IV 100 mls/hr Q24HR@2200 KJ Administration Protocol Potassium Chloride 40 meq/ 1,020 mls @ 150 mls/hr 08/23/19 05:30 08/27/19 09:03 Dextrose IV 150 mls/hr DIRECT KJ Administration Octreotide Acetate 500 mcg/ 101 mls @ 5.05 mls/hr 08/23/19 12:00 08/26/19 17:37 Sodium Chloride IV 08/27/19 11:59 25 mcg/hr TITR KJ 5.05 mls/hr Administration Protocol 25 MCG/HR Magnesium Sulfate 4 gm in 100 mls @ 25 mls/hr 08/27/19 08:34 08/27/19 09:12 Magnesium Sulfate 4gm/100ml IV 08/27/19 12:33 25 mls/hr ONCE ONE Administration Potassium Phosphate 45 mmol/ 515 mls @ 85.833 mls/hr 08/27/19 09:00 08/27/19 10:59 Dextrose IV 08/27/19 14:59 85.833 mls/hr ONCE ONE Administration Lactulose 20 gm 08/27/19 14:00 Cephulac PO Q8HR KJ Lansoprazole 30 mg 08/27/19 10:00 08/27/19 10:59 Prevacid Solutab FEEDTUBE 30 mg BID KJ Administration Nadolol 20 mg 08/27/19 11:00 Corgard PO QDAY KJ Simple Syrup 15 ml 08/26/19 12:00 Simple Syrup FEEDTUBE PRN PRN Hypoglycemia Simple Syrup 30 ml 08/26/19 12:00 Simple Syrup FEEDTUBE PRN PRN Hypoglycemia Sodium Bicarbonate 325 mg 08/26/19 12:00 Sodium Bicarbonate FEEDTUBE PRN PRN For Clogged Feeding Tube Sodium Chloride 10 ml 08/22/19 22:00 08/27/19 11:02 Sodium Chloride Flush Syringe 10 Ml IV 10 ml BID KJ Administration Sodium Chloride 10 ml 08/22/19 21:11 Sodium Chloride Flush Syringe 10 Ml IV PRN PRN LINE FLUSH Nutrition/Malnutrition Assess - Dietary Evaluation Nutrition/Malnutrition Findings: Nutrition Notes Start: 08/26/19 10:54 Freq: Status: Active Protocol: Document 08/26/19 10:54 RS (Rec: 08/26/19 11:38 RS [id number]) Co-Sign 08/26/19 10:54 LM Nutrition Notes Need for Assessment generated from: MD Order Initial or Follow up Assessment Current Diagnosis Acute Kidney Injury,Diabetes, Hypertension Other Pertinent Diagnosis Cirrosis, hepatic ecephalopathy, Labs/Tests Na: 159 K: 3.4 Pertinent Medications reviewed Height 6 ft Weight 92.986 kg [place] Body Weight (kg) 80.90 BMI 27.8 Weight Status Overweight Subjective/Other Information Consult for TF. Pt currently NPO d/t pt's risk for aspiration caused by a moderate to severe pharyngeal phase swallowing dysfuction per speech therapist report. Burn Absent Trauma Absent GI Symptoms Diarrhea Difficulty In Swallowing Food Allergy No Minimum of two criteria No physical signs of malnutrition #1 Nutrition Diagnosis Inadequate oral intake Etiology dysphagia As Evidenced by Signs and Symptoms NPO status Is patient on ventilator? No Is Patient Ambulatory and/or Out of Bed No REE-([facility]-confined to bed) 2480.218 Calculation Used for Recommendations [facility] Additional Notes PRO needs (1-1.2g/kg): 92-112g/day Fluid needs: 1mL/kcal Nutrition Intervention Change Diet Order: TF Nutrition Support: Osmolite 1.5 at 60 ml/hr (goal rate) Free water flush of 250ml q4hr (for hypernatremia) Decrease flush to 170mL q4hr once hypernatremia resolves Kcal 2,160 Protein (gm) 90 Fluid (mL) 1,097 Goal #1 TF tolerance Goal #2 diet advancement Anticipated Discharge Needs: unable to determine Follow-Up By: 08/30/19 Additional Comments F/U for TF tolerance/rate and MBS
[2019-08-27] MEDS: NADOLOL 20 MG TAB PO SCH (12:39)
[2019-08-27] MEDS: LACTULOSE 20 GM/30 ML ORAL LIQD PO SCH ×2 (14:34→22:24)
--- NOTE | 2019-08-27 15:58 | XRay Report ---
CHEST 1 VIEW INDICATION: hypertension. COMPARISON: 08/22/2019 FINDINGS: Support devices: A feeding tube has been inserted and the tip is in the fundus of the stomach. Pacer leads in the heart are unchanged. Heart: Within normal limits. Pulmonary vasculature: Increased. Lungs/Pleura: The lungs are unchanged. No airspace disease or pleural effusion. Additional findings: None. IMPRESSION: 1. No acute findings. 2. Feeding tube tip in the proximal stomach. For optimal placement, recommend advancement by 10 cm. Signer Name: Rafael Goff MD Signed: 08/27/2019 3:54 PM Workstation Name: [id number]
[2019-08-27] MEDS: ALBUTEROL 2.5 MG/3 ML NEBU IH SCH ×2 (15:59→23:58)
[2019-08-27] MEDS: IPRATROPIUM/ALBUTEROL SULFATE 3 ML AMPUL.NEB IH SCH ×2 (15:59→23:57)
--- NOTE | 2019-08-27 16:01 | XRay Report ---
ABDOMEN SINGLE VIEW HISTORY: NGT placement. COMPARISON: 08/27/2019. FINDINGS: The feeding tube has pulled back slightly and the tip is in the fundus of the stomach. Non obstructive bowel gas pattern. IMPRESSION: Proximal position of the feeding tube. Recommend advancement by 10 cm. Signer Name: Rafael Goff MD Signed: 08/27/2019 3:57 PM Workstation Name: [id number]
[2019-08-27] MEDS: methylPREDNISolone Sod Succinate 125 MG/2 ML INJ IV SCH ×2 (16:31→22:25)
--- NOTE | 2019-08-27 17:20 | Progress Note ---
Assessment and Plan Imp: 1. Obstructive uropathy/urinary retention 2. LAVONNE 2/2 #1 3. Hyperkalemia 4. R/o UTI 5. UGIB 6. Cirrhosis 7. Acute blood loss anemia 8. Hepatic encephalopathy 9. Hypernatremia 10. Oropharyngeal dysphagia Rec: 1. De [place] placed; renal function improving; IVFs per renal 2. Empiric Rocephin for now 3. PPI IV BID; Octreotide -> Nadolol once taking PO; stop Eliquis; trend H/H, INR; no EGD planned 4. SCDs to LEs 5. Lactulose per GI recs 6. PRBCs given 08/25/19 7. Updated daughter extensively on 08/23/19 re: his condition; per daughter his wishes were to be DNR/DNI 8. Failed ST eval.; ? re-eval. in a few days versus PEG versus hospice No family present Subjective Date of service: 08/27/19 Principal diagnosis: GI bleed Interval history: No events. No reports of bleeding. No obvious complaints. Active Medications Albuterol (Proventil) 2.5 mg IH Q4HRT [facility] Last Admin: 08/27/19 15:59 Dose: 2.5 mg Documented by: Albuterol/Ipratropium (Duoneb *Not For Prn Use*) 1 ampul IH Q6HRT [facility] Last Admin: 08/27/19 15:59 Dose: 1 ampul Documented by: Lipase/Protease/Amylase (Iván Solano 10,500 Unit) 1 each FEEDTUBE PRN PRN PRN Reason: For Clogged Feeding Tube Chlorothiazide Sodium (Diuril) 500 mg IV BID [facility] Last Admin: 08/27/19 10:59 Dose: 500 mg Documented by: Hydromorphone HCl (Dilaudid) 0.25 mg IV Q3H PRN PRN Reason: Pain, Moderate (4-6) Last Admin: 08/26/19 06:11 Dose: 0.25 mg Documented by: Ceftriaxone Sodium (Rocephin/Ns 1 Gm/50 Ml) 1 gm in 50 mls @ 100 mls/hr IV Q24HR@2200 [facility]; Protocol Last Admin: 08/26/19 22:44 Dose: 100 mls/hr Documented by: Potassium Chloride 40 meq/ (Dextrose) 1,020 mls @ 150 mls/hr IV DIRECT [facility] Last Admin: 08/27/19 16:12 Dose: 150 mls/hr Documented by: Lactulose (Cephulac) 20 gm PO Q8HR [facility] Last Admin: 08/27/19 14:34 Dose: 20 gm Documented by: Lansoprazole (Prevacid Solutab) 30 mg FEEDTUBE BID [facility] Last Admin: 08/27/19 10:59 Dose: 30 mg Documented by: Methylprednisolone Sodium Succinate (Solu-Medrol) 60 mg IV Q8HR [facility] Last Admin: 08/27/19 16:31 Dose: 60 mg Documented by: Nadolol (Corgard) 20 mg PO QDAY [facility] Last Admin: 08/27/19 12:39 Dose: 20 mg Documented by: Simple Syrup (Simple Syrup) 15 ml FEEDTUBE PRN PRN PRN Reason: Hypoglycemia Simple Syrup (Simple Syrup) 30 ml FEEDTUBE PRN PRN PRN Reason: Hypoglycemia Sodium Bicarbonate (Sodium Bicarbonate) 325 mg FEEDTUBE PRN PRN PRN Reason: For Clogged Feeding Tube Sodium Chloride (Sodium Chloride Flush Syringe 10 Ml) 10 ml IV BID [facility] Last Admin: 08/27/19 11:02 Dose: 10 ml Documented by: Sodium Chloride (Sodium Chloride Flush Syringe 10 Ml) 10 ml IV PRN PRN PRN Reason: LINE FLUSH Objective Vital Signs - 12hr 08/27/19 08/27/19 08/27/19 06:00 07:00 08:00 Pulse Rate 71 89 87 Pulse Rate [ Anterior Bilateral Throughout] Respiratory 30 H 25 H 31 H Rate Respiratory Rate [Anterior Bilateral Throughout] Blood Pressure 167/93 126/62 123/74 O2 Sat by Pulse 93 90 91 Oximetry 08/27/19 08/27/19 08/27/19 09:00 10:00 11:00 Pulse Rate 76 73 90 Pulse Rate [ Anterior Bilateral Throughout] Respiratory 30 H 32 H 34 H Rate Respiratory Rate [Anterior Bilateral Throughout] Blood Pressure 125/65 134/68 134/68 O2 Sat by Pulse 89 94 97 Oximetry 08/27/19 08/27/19 08/27/19 12:39 15:15 16:00 Pulse Rate 74 74 Pulse Rate [ 73 Anterior Bilateral Throughout] Respiratory 42 H Rate Respiratory 28 H Rate [Anterior Bilateral Throughout] Blood Pressure 153/66 140/74 O2 Sat by Pulse 96 96 Oximetry Constitutional: no acute distress, alert Eyes: non-icteric ENT: oropharynx dry Neck: supple Effort: normal Ascultation: Bilateral: wheezes (faint expiratory wheezes bilaterally), rhonchi (occasional upper airway) Cardiovascular: regular rate and rhythm (no mrg) Gastrointestinal: normoactive bowel sounds, soft, non-tender, non-distended Extremities: anasarca (2+ bilateral LE edema) Neurologic: non-focal exam Psychiatric: mood appropriate, affect normal CBC and BMP: 08/27/19 05:15 08/27/19 05:15 ABG, PT/INR, D-dimer: PT/INR, D-dimer PT 17.8 Sec. (12.2-14.9) H 08/24/19 04:07 INR 1.51 (0.87-1.13) H 08/24/19 04:07 Abnormal lab findings: Abnormal Labs 08/22/19 08/22/19 08/22/19 12:14 12:39 12:39 WBC 13.0 H RBC 3.10 L Hgb 7.9 L Hct 26.7 L MCV MCH 26 L MCHC 30 L RDW 25.6 H Plt Count Lymph % (Auto) 9.3 L [place] % (Auto) Lymph # [place] # Seg Neutrophils % 84.0 H Seg Neuts % (Manual) Lymphocytes % (Manual) Seg Neutrophils # 10.9 H Seg Neutrophils # Man Lymphocytes # (Manual) Monocytes # (Manual) PT 23.1 H INR 2.10 H Sodium Potassium 7.2 H* Chloride Carbon Dioxide 12 L BUN 195 H Creatinine 15.2 H Glucose 132 H POC Glucose Calcium 7.5 L Phosphorus Magnesium 3.50 H AST Alkaline Phosphatase 136 H Ammonia NT-Pro-B Natriuret Pep 1788 H Total Protein Albumin 3.0 L Urine WBC (Auto) Urine Creatinine Crossmatch 08/22/19 08/22/19 08/22/19 12:39 12:39 15:12 WBC RBC Hgb Hct MCV MCH MCHC RDW Plt Count Lymph % (Auto) [place] % (Auto) Lymph # [place] # Seg Neutrophils % Seg Neuts % (Manual) Lymphocytes % (Manual) Seg Neutrophils # Seg Neutrophils # Man Lymphocytes # (Manual) Monocytes # (Manual) PT INR Sodium Potassium Chloride Carbon Dioxide BUN Creatinine Glucose POC Glucose Calcium Phosphorus Magnesium AST Alkaline Phosphatase Ammonia 267.0 H NT-Pro-B Natriuret Pep Total Protein Albumin Urine WBC (Auto) 22.0 H Urine Creatinine Crossmatch See Detail 08/22/19 08/22/19 08/23/19 18:13 23:07 03:46 WBC 12.2 H RBC 2.73 L Hgb 7.7 L 7.0 L Hct 23.6 L 21.5 L MCV 79 L MCH 26 L MCHC RDW 24.9 H Plt Count Lymph % (Auto) 6.9 L [place] % (Auto) 11.4 H Lymph # 0.8 L [place] # 1.4 H Seg Neutrophils % 81.6 H Seg Neuts % (Manual) Lymphocytes % (Manual) Seg Neutrophils # 10.0 H Seg Neutrophils # Man Lymphocytes # (Manual) Monocytes # (Manual) PT INR Sodium 148 H D Potassium Chloride 107.1 H Carbon Dioxide 15 L BUN 173 H Creatinine 11.0 H Glucose 151 H POC Glucose Calcium 8.2 L Phosphorus Magnesium AST Alkaline Phosphatase Ammonia NT-Pro-B Natriuret Pep Total Protein Albumin Urine WBC (Auto) Urine Creatinine Crossmatch 08/23/19 08/23/19 08/24/19 03:46 13:52 00:25 WBC RBC Hgb 7.5 L Hct 23.6 L MCV MCH MCHC RDW Plt Count Lymph % (Auto) [place] % (Auto) Lymph # [place] # Seg Neutrophils % Seg Neuts % (Manual) Lymphocytes % (Manual) Seg Neutrophils # Seg Neutrophils # Man Lymphocytes # (Manual) Monocytes # (Manual) PT INR Sodium 160 H D Potassium 3.4 L D Chloride 121.8 H Carbon Dioxide BUN 116 H Creatinine 5.4 H D Glucose 209 H POC Glucose 181 H Calcium Phosphorus Magnesium AST Alkaline Phosphatase Ammonia NT-Pro-B Natriuret Pep Total Protein Albumin Urine WBC (Auto) Urine Creatinine Crossmatch 08/24/19 08/24/19 08/24/19 04:07 04:07 04:07 WBC 20.5 H RBC 2.97 L Hgb 7.7 L Hct 23.5 L MCV 79 L MCH 26 L MCHC RDW 24.4 H Plt Count 482 H Lymph % (Auto) [place] % (Auto) Lymph # [place] # Seg Neutrophils % Seg Neuts % (Manual) 92.0 H Lymphocytes % (Manual) 3.0 L Seg Neutrophils # Seg Neutrophils # Man 18.9 H Lymphocytes # (Manual) 0.6 L Monocytes # (Manual) 1.0 H PT 17.8 H INR 1.51 H Sodium 172 H* D Potassium Chloride 131.1 H Carbon Dioxide BUN 44 H Creatinine Glucose 175 H POC Glucose Calcium Phosphorus 2.30 L Magnesium AST Alkaline Phosphatase Ammonia NT-Pro-B Natriuret Pep Total Protein Albumin Urine WBC (Auto) Urine Creatinine Crossmatch 08/24/19 08/24/19 08/24/19 09:28 11:36 13:18 WBC RBC Hgb Hct MCV MCH MCHC RDW Plt Count Lymph % (Auto) [place] % (Auto) Lymph # [place] # Seg Neutrophils % Seg Neuts % (Manual) Lymphocytes % (Manual) Seg Neutrophils # Seg Neutrophils # Man Lymphocytes # (Manual) Monocytes # (Manual) PT INR Sodium 171 H* 172 H* Potassium Chloride Carbon Dioxide BUN Creatinine Glucose POC Glucose 190 H Calcium Phosphorus Magnesium AST Alkaline Phosphatase Ammonia NT-Pro-B Natriuret Pep Total Protein Albumin Urine WBC (Auto) Urine Creatinine Crossmatch 08/24/19 08/24/19 08/24/19 16:44 19:31 19:31 WBC RBC Hgb 6.9 L Hct 22.8 L MCV MCH MCHC RDW Plt Count Lymph % (Auto) [place] % (Auto) Lymph # [place] # Seg Neutrophils % Seg Neuts % (Manual) Lymphocytes % (Manual) Seg Neutrophils # Seg Neutrophils # Man Lymphocytes # (Manual) Monocytes # (Manual) PT INR Sodium 170 H* Potassium Chloride Carbon Dioxide BUN Creatinine Glucose POC Glucose 203 H Calcium Phosphorus Magnesium AST Alkaline Phosphatase Ammonia NT-Pro-B Natriuret Pep Total Protein Albumin Urine WBC (Auto) Urine Creatinine Crossmatch 08/25/19 08/25/19 08/25/19 05:02 05:02 09:58 WBC RBC Hgb 6.7 L Hct 22.0 L MCV MCH MCHC RDW Plt Count Lymph % (Auto) [place] % (Auto) Lymph # [place] # Seg Neutrophils % Seg Neuts % (Manual) Lymphocytes % (Manual) Seg Neutrophils # Seg Neutrophils # Man Lymphocytes # (Manual) Monocytes # (Manual) PT INR Sodium 169 H* 166 H* Potassium Chloride 126.0 H Carbon Dioxide BUN 23 H Creatinine Glucose 149 H POC Glucose Calcium Phosphorus 2.40 L Magnesium AST Alkaline Phosphatase Ammonia NT-Pro-B Natriuret Pep Total Protein Albumin Urine WBC (Auto) Urine Creatinine Crossmatch 08/25/19 08/25/19 08/25/19 10:45 10:45 23:01 WBC RBC Hgb Hct MCV MCH MCHC RDW Plt Count Lymph % (Auto) [place] % (Auto) Lymph # [place] # Seg Neutrophils % Seg Neuts % (Manual) Lymphocytes % (Manual) Seg Neutrophils # Seg Neutrophils # Man Lymphocytes # (Manual) Monocytes # (Manual) PT INR Sodium 160 H Potassium Chloride Carbon Dioxide BUN Creatinine Glucose POC Glucose Calcium Phosphorus Magnesium AST Alkaline Phosphatase Ammonia NT-Pro-B Natriuret Pep Total Protein Albumin Urine WBC (Auto) 17.0 H Urine Creatinine 70.8 H Crossmatch 08/26/19 08/26/19 08/27/19 04:25 05:48 05:15 WBC 26.8 H 23.8 H RBC 3.43 L 3.39 L Hgb 9.1 L 9.1 L Hct 28.5 L D 28.7 L MCV 83 L MCH 27 L 27 L MCHC RDW 23.0 H 22.4 H Plt Count Lymph % (Auto) [place] % (Auto) Lymph # [place] # Seg Neutrophils % Seg Neuts % (Manual) Lymphocytes % (Manual) Seg Neutrophils # Seg Neutrophils # Man Lymphocytes # (Manual) Monocytes # (Manual) PT INR Sodium 159 H Potassium 3.4 L Chloride 116.4 H Carbon Dioxide BUN Creatinine Glucose 159 H POC Glucose Calcium 7.8 L Phosphorus Magnesium AST 73 H Alkaline Phosphatase Ammonia NT-Pro-B Natriuret Pep Total Protein 6.2 L Albumin 2.9 L Urine WBC (Auto) Urine Creatinine Crossmatch 08/27/19 08/27/19 05:15 11:45 WBC RBC Hgb Hct MCV MCH MCHC RDW Plt Count Lymph % (Auto) [place] % (Auto) Lymph # [place] # Seg Neutrophils % Seg Neuts % (Manual) Lymphocytes % (Manual) Seg Neutrophils # Seg Neutrophils # Man Lymphocytes # (Manual) Monocytes # (Manual) PT INR Sodium 147 H D Potassium 3.2 L Chloride Carbon Dioxide BUN Creatinine Glucose 154 H POC Glucose 197 H Calcium 7.6 L Phosphorus 2.10 L D Magnesium 1.30 L AST Alkaline Phosphatase Ammonia NT-Pro-B Natriuret Pep Total Protein Albumin Urine WBC (Auto) Urine Creatinine Crossmatch Chest x-ray: report reviewed, image reviewed
--- NOTE | 2019-08-27 18:20 | XRay Report ---
SUPINE ABDOMEN 5:40 PM INDICATION: Tube placement. COMPARISON: Earlier the same day FINDINGS: Weighted enteric feeding tube tip remains within the proximal stomach, not significantly changed. The re is mild diffuse gaseous distention of small and large bowel. This could be seen in the setting of adynamic ileus. IMPRESSION: 1. Feeding tube is unchanged since the exam from earlier today, tip remains within the proximal stoma ch. Signer Name: Bandar Cates MD Signed: 08/27/2019 6:15 PM Workstation Name: [id number]
--- NOTE | 2019-08-27 19:19 | Progress Note ---
Assessment and Plan 1. Acute kidney injury: LAVONNE in the setting of obstructive uropathy =/- vasomotor insult. CT abdomen showed obstructive nephropathy. S/p ferguson catheter. Renal function is better. Monitor renal function. Avoid nephrotoxic agents. Meds dosage based on GFR. 2. FEN: Hypernatremia, continue IV D5W and Diuril. Features not suggestive of DI. Hypokalemia, replete K. Metabolic acidosis, improved. Monitor lytes. 3. GI bleed/hematemesis: H/o Esophageal varices. Followed by GI. 4. H/o Cirrhosis. 5. Hepatic encephalopathy. 6. Acute blood loss Anemia: POA. S/p PRBC. 7. Hyperglycemia. Examination: General appearance: well-developed, appears stated age, no distress HEENT: ATNC, IBRAHIMA Neck: trachea midline Respiratory: Clear to Ascultation Heart: S1S2, regular, no murmur Gastrointestinal: normoactive bowel sounds, NT Integumentary: stasis changes R leg : Ferguson catheter Neurologic: able to move extremities, L sided weakness noted, aphasia Musculoskeletal: L BKA Subjective Date of service: 08/27/19 Principal diagnosis: GI bleed Interval history: Patient was seen and examined at the bedside. Objective - Vital Signs Vital signs: Vital Signs - 12hr 08/27/19 08/27/19 08/27/19 08:00 09:00 10:00 Pulse Rate 87 76 72 Pulse Rate [ Anterior Bilateral Throughout] Pulse Rate [ 67 From Monitor] Respiratory 30 H 30 H 32 H Rate Respiratory Rate [Anterior Bilateral Throughout] Blood Pressure 123/74 125/65 134/68 O2 Sat by Pulse 98 89 94 Oximetry 08/27/19 08/27/19 08/27/19 11:00 12:00 12:01 Pulse Rate 90 78 Pulse Rate [ Anterior Bilateral Throughout] Pulse Rate [ 72 From Monitor] Respiratory 34 H 34 H 29 H Rate Respiratory Rate [Anterior Bilateral Throughout] Blood Pressure 134/68 153/66 O2 Sat by Pulse 97 98 97 Oximetry 08/27/19 08/27/19 08/27/19 12:39 13:01 14:01 Pulse Rate 74 69 71 Pulse Rate [ Anterior Bilateral Throughout] Pulse Rate [ From Monitor] Respiratory 33 H 36 H Rate Respiratory Rate [Anterior Bilateral Throughout] Blood Pressure 153/66 128/65 131/63 O2 Sat by Pulse 95 95 Oximetry 08/27/19 08/27/19 08/27/19 15:00 15:15 16:00 Pulse Rate 77 74 69 Pulse Rate [ 73 Anterior Bilateral Throughout] Pulse Rate [ 66 From Monitor] Respiratory 39 H 42 H 36 H Rate Respiratory 28 H Rate [Anterior Bilateral Throughout] Blood Pressure 140/74 140/74 134/73 O2 Sat by Pulse 80 L 96 99 Oximetry 08/27/19 08/27/19 17:00 18:00 Pulse Rate 77 68 Pulse Rate [ Anterior Bilateral Throughout] Pulse Rate [ From Monitor] Respiratory 25 H 26 H Rate Respiratory Rate [Anterior Bilateral Throughout] Blood Pressure 140/78 147/63 O2 Sat by Pulse 96 100 Oximetry - Lab 08/27/19 05:15 08/27/19 05:15 Most recent lab results Calcium 7.6 mg/dL (8.4-10.2) L 08/27/19 05:15 Phosphorus 2.10 mg/dL (2.5-4.5) L D 08/27/19 05:15 Magnesium 1.30 mg/dL (1.7-2.3) L 08/27/19 05:15 Urine Creatinine 70.8 mg/dL (0.1-20.0) H 08/25/19 10:45 Urine Sodium 74 mmol/L 08/25/19 10:45 Medications & Allergies - Medications Allergies/Adverse Reactions: Allergies No Known Allergies Allergy (Unverified 07/11/13 08:29) Home Medications: Home Medications Medication Instructions Recorded Confirmed Last Taken Type Apixaban [Eliquis] 5 mg PO BID 08/22/19 08/22/19 Unknown History Ascorbic Acid [Vitamin C] 500 mg PO Q12H 08/22/19 08/22/19 Unknown History AtorvaSTATin [Lipitor] 40 mg PO QHS 08/22/19 08/22/19 Unknown History Carvedilol [Coreg] 6.25 mg PO BID 08/22/19 08/22/19 Unknown History Dicyclomine [Bentyl] 20 mg PO QID PRN 08/22/19 08/22/19 Unknown History Docusate Sodium [Colace] 100 mg PO BID 08/22/19 08/22/19 Unknown History Flomax 0.4 mg PO QHS 08/22/19 08/22/19 Unknown History Folic Acid [Folvite] 1 mg PO QDAY 08/22/19 08/22/19 Unknown History HYDROcodone/APAP 5-325 [[place] 1 each PO Q6HR PRN 08/22/19 08/22/19 Unknown History 5/325] Ibuprofen [Motrin] 600 mg PO Q8H PRN 08/22/19 08/22/19 Unknown History Lisinopril [Zestril TAB] 10 mg PO QDAY 08/22/19 08/22/19 Unknown History Loperamide [Imodium] 2 mg PO BID PRN 08/22/19 08/22/19 Unknown History Magnesium Hydroxide [Milk of 400 mg PO Q24HR PRN 08/22/19 08/22/19 Unknown History Magnesia] Melatonin 3 mg PO QHS 08/22/19 08/22/19 Unknown History Multivit with Minerals No.55 1 tab PO DAILY 08/22/19 08/22/19 Unknown History Pantoprazole [Protonix] 40 mg PO QDAY 08/22/19 08/22/19 Unknown History Sennosides/Docusate Sodium [Senna 1 each PO DAILY 08/22/19 08/22/19 Unknown History Plus Tablet] diphenhydrAMINE [Benadryl CAP] 25 mg PO Q6HR PRN 08/22/19 08/22/19 Unknown History Active Medications: Generic Name Dose Route Start Last Admin Trade Name Freq PRN Reason Stop Dose Admin Albuterol 2.5 mg 08/27/19 16:00 08/27/19 15:59 Proventil IH 2.5 mg Q4HRT KJ Administration Albuterol/Ipratropium 1 ampul 08/27/19 15:15 08/27/19 15:59 Duoneb *Not For Prn Use* IH 1 ampul Q6HRT KJ Administration Lipase/Protease/Amylase 1 each 08/26/19 12:00 Pancrekiara Solano 10,500 Unit FEEDTUBE PRN PRN For Clogged Feeding Tube Chlorothiazide Sodium 500 mg 08/25/19 10:00 08/27/19 10:59 Diuril IV 500 mg BID KJ Administration Hydromorphone HCl 0.25 mg 08/22/19 21:17 08/26/19 06:11 Dilaudid IV 0.25 mg Q3H PRN Administration Pain, Moderate (4-6) Ceftriaxone Sodium 1 gm in 50 mls @ 100 mls/hr 08/22/19 22:00 08/26/19 22:44 Rocephin/Ns 1 Gm/50 Ml IV 100 mls/hr Q24HR@2200 KJ Administration Protocol Potassium Chloride 40 meq/ 1,020 mls @ 150 mls/hr 08/23/19 05:30 08/27/19 16:12 Dextrose IV 150 mls/hr DIRECT KJ Administration Lactulose 20 gm 08/27/19 14:00 08/27/19 14:34 Cephulac PO 20 gm Q8HR KJ Administration Lansoprazole 30 mg 08/27/19 10:00 08/27/19 10:59 Prevacid Solutab FEEDTUBE 30 mg BID KJ Administration Methylprednisolone Sodium Succinate 60 mg 08/27/19 16:00 08/27/19 16:31 Solu-Medrol IV 60 mg Q8HR KJ Administration Nadolol 20 mg 08/27/19 11:00 08/27/19 12:39 Corgard PO 20 mg QDAY KJ Administration Simple Syrup 15 ml 08/26/19 12:00 Simple Syrup FEEDTUBE PRN PRN Hypoglycemia Simple Syrup 30 ml 08/26/19 12:00 Simple Syrup FEEDTUBE PRN PRN Hypoglycemia Sodium Bicarbonate 325 mg 08/26/19 12:00 Sodium Bicarbonate FEEDTUBE PRN PRN For Clogged Feeding Tube Sodium Chloride 10 ml 08/22/19 22:00 08/27/19 11:02 Sodium Chloride Flush Syringe 10 Ml IV 10 ml BID KJ Administration Sodium Chloride 10 ml 08/22/19 21:11 Sodium Chloride Flush Syringe 10 Ml IV PRN PRN LINE FLUSH
[2019-08-27] MEDS: cefTRIAXone/NS 1 GM/50 ML 1 GM/50 ML BAG IV SCH (22:24)
[2019-08-27] MEDS: HYDROmorphone 1 MG/1 ML INJ IV PRN (23:02)
[2019-08-27] MEDS ORDERED: ALBUTEROL 2.5 MG/3 ML NEBU IH PRN (23:52)
[2019-08-28] MEDS: IPRATROPIUM/ALBUTEROL SULFATE 3 ML AMPUL.NEB IH SCH ×4 (02:09→22:07)
[2019-08-28 04:23] LABS: Hemoglobin 8.8 gm/dl (11.8-15.2); Mean Corpuscular HGB Conc 31 % (32-34); Mean Corpuscular Volume 86 fl (84-94); Platelet Count 193 K/mm3 (140-440); Red Blood Count 3.24 M/mm3 (3.65-5.03)
[2019-08-28 04:25] LABS: Red Cell Distribution Width 23.5 % (13.2-15.2)
[2019-08-28 04:46] LABS: BUN/Creatinine Ratio 19; Blood Urea Nitrogen 15 mg/dL (9-20); Calcium 6.6 mg/dL (8.4-10.2); Hemolysis Index 6
[2019-08-28] MEDS: LACTULOSE 20 GM/30 ML ORAL LIQD PO SCH ×3 (06:05→22:25)
[2019-08-28] MEDS: methylPREDNISolone Sod Succinate 125 MG/2 ML INJ IV SCH (06:05)
[2019-08-28] MEDS ORDERED: DEXTROSE 50% IN WATER (25GM) 50 ML SYRINGE IV PRN (07:56)
[2019-08-28] MEDS ORDERED: INSULIN REGULAR, HUMAN 100 UNITS/1 ML SUB-Q ONE (07:57)
[2019-08-28] MEDS ORDERED: SODIUM POLYSTYRENE 15 GM/60 ML ORAL LIQD PO NR (08:12)
[2019-08-28] MEDS ORDERED: INSULIN REGULAR, HUMAN 100 UNITS/1 ML IV NR (08:12)
[2019-08-28] MEDS: INSULIN LISPRO 100 UNIT/ML SUB-Q SCH ×3 (08:37→19:36)
[2019-08-28] MEDS ORDERED: MAGNESIUM SULFATE 1 GM in SODIUM CHLORIDE 0.9% 50 ML IV ONE (08:49)
[2019-08-28 09:03] LABS: BUN/Creatinine Ratio 21; Blood Urea Nitrogen 19 mg/dL (9-20); Calcium 7.6 mg/dL (8.4-10.2); Hemolysis Index 35
--- NOTE | 2019-08-28 09:25 | XRay Report ---
CHEST 1 VIEW INDICATION / CLINICAL INFORMATION: RESPIRATORY FAILURE. COMPARISON: Chest and abdominal radiographs from 08/27/2019 FINDINGS: SUPPORT DEVICES: Stable, satisfactory device positioning. HEART / MEDIASTINUM: Stable. LUNGS / PLEURA: No significant change. No pneumothorax. IMPRESSION: 1. No significant change. Small left pleural effusion. Signer Name: Jerald Love MD Signed: 08/28/2019 9:21 AM Workstation Name: [id number]
[2019-08-28] MEDS: CHLOROTHIAZIDE 500 MG VIAL IV SCH (10:00)
[2019-08-28] MEDS: LANSOPRAZOLE 30 MG SOLUTAB FEEDTUBE SCH ×2 (10:00→22:25)
[2019-08-28] MEDS: NADOLOL 20 MG TAB PO SCH (10:02)
[2019-08-28] MEDS ORDERED: WATER FOR INJ Sterile (PF) 20 ML ONE (10:15)
--- NOTE | 2019-08-28 11:44 | Progress Note ---
Assessment and Plan 1. Acute kidney injury: LAVONNE in the setting of obstructive uropathy =/- vasomotor insult. CT abdomen showed obstructive nephropathy. S/p ferguson catheter. Renal function is better. Monitor renal function. Avoid nephrotoxic agents. Meds dosage based on GFR. 2. FEN: Hypernatremia, sodium level has improved. IV D5W stopped. On Diuril. Hypokalemia, improved. Metabolic acidosis, improved. Monitor lytes. 3. GI bleed/hematemesis: H/o Esophageal varices. Followed by GI. 4. H/o Cirrhosis. 5. Hepatic encephalopathy. 6. Acute blood loss Anemia: POA. S/p PRBC. 7. Hyperglycemia. Examination: General appearance: well-developed, appears stated age, no distress HEENT: ATNC, IBRAHIMA Neck: trachea midline Respiratory: Clear to Ascultation Heart: S1S2, regular, no murmur Gastrointestinal: normoactive bowel sounds, NT Integumentary: stasis changes R leg : Ferguson catheter Neurologic: able to move extremities, L sided weakness noted, aphasia Musculoskeletal: L BKA Subjective Date of service: 08/28/19 Principal diagnosis: GI bleed Interval history: Patient was seen and examined at the bedside. Objective - Vital Signs Vital signs: Vital Signs - 12hr 08/27/19 08/28/19 08/28/19 23:59 00:00 00:11 Temperature 99.4 F Pulse Rate 82 83 Pulse Rate [ Anterior Bilateral Throughout] Pulse Rate [ From Monitor] Respiratory 20 21 Rate Respiratory Rate [Anterior Bilateral Throughout] Blood Pressure 154/90 154/90 O2 Sat by Pulse 100 100 Oximetry 08/28/19 08/28/19 08/28/19 01:01 02:00 02:10 Temperature Pulse Rate 64 71 Pulse Rate [ 77 Anterior Bilateral Throughout] Pulse Rate [ From Monitor] Respiratory 17 18 Rate Respiratory 18 Rate [Anterior Bilateral Throughout] Blood Pressure 109/59 127/67 O2 Sat by Pulse 98 97 Oximetry 08/28/19 08/28/19 08/28/19 03:01 03:58 04:00 Temperature Pulse Rate 66 68 70 Pulse Rate [ Anterior Bilateral Throughout] Pulse Rate [ From Monitor] Respiratory 16 17 21 Rate Respiratory Rate [Anterior Bilateral Throughout] Blood Pressure 86/46 101/46 113/57 O2 Sat by Pulse 99 99 97 Oximetry 1008/28/19 08/28/19 04:35 05:00 06:00 Temperature 98.9 F Pulse Rate 70 73 Pulse Rate [ Anterior Bilateral Throughout] Pulse Rate [ From Monitor] Respiratory 16 17 Rate Respiratory Rate [Anterior Bilateral Throughout] Blood Pressure 119/50 98/53 O2 Sat by Pulse 99 100 Oximetry 08/28/19 08/28/19 08/28/19 07:00 07:23 08:00 Temperature 98.4 F Pulse Rate 72 76 74 Pulse Rate [ 72 Anterior Bilateral Throughout] Pulse Rate [ 75 From Monitor] Respiratory 18 18 17 Rate Respiratory 18 Rate [Anterior Bilateral Throughout] Blood Pressure 96/51 96/51 106/57 O2 Sat by Pulse 98 97 99 Oximetry 08/28/19 10:02 Temperature Pulse Rate 78 Pulse Rate [ Anterior Bilateral Throughout] Pulse Rate [ From Monitor] Respiratory Rate Respiratory Rate [Anterior Bilateral Throughout] Blood Pressure 116/60 O2 Sat by Pulse Oximetry - Lab 08/28/19 Unknown 08/28/19 Unknown Most recent lab results Calcium 6.6 mg/dL (8.4-10.2) L 08/28/19 Unknown Phosphorus 2.10 mg/dL (2.5-4.5) L D 08/27/19 05:15 Magnesium 1.30 mg/dL (1.7-2.3) L 08/27/19 05:15 Urine Creatinine 70.8 mg/dL (0.1-20.0) H 08/25/19 10:45 Urine Sodium 74 mmol/L 08/25/19 10:45 Medications & Allergies - Medications Allergies/Adverse Reactions: Allergies No Known Allergies Allergy (Unverified 07/11/13 08:29) Home Medications: Home Medications Medication Instructions Recorded Confirmed Last Taken Type Apixaban [Eliquis] 5 mg PO BID 08/22/19 08/22/19 Unknown History Ascorbic Acid [Vitamin C] 500 mg PO Q12H 08/22/19 08/22/19 Unknown History AtorvaSTATin [Lipitor] 40 mg PO QHS 08/22/19 08/22/19 Unknown History Carvedilol [Coreg] 6.25 mg PO BID 08/22/19 08/22/19 Unknown History Dicyclomine [Bentyl] 20 mg PO QID PRN 08/22/19 08/22/19 Unknown History Docusate Sodium [Colace] 100 mg PO BID 08/22/19 08/22/19 Unknown History Flomax 0.4 mg PO QHS 08/22/19 08/22/19 Unknown History Folic Acid [Folvite] 1 mg PO QDAY 08/22/19 08/22/19 Unknown History HYDROcodone/APAP 5-325 [[place] 1 each PO Q6HR PRN 08/22/19 08/22/19 Unknown History 5/325] Ibuprofen [Motrin] 600 mg PO Q8H PRN 08/22/19 08/22/19 Unknown History Lisinopril [Zestril TAB] 10 mg PO QDAY 08/22/19 08/22/19 Unknown History Loperamide [Imodium] 2 mg PO BID PRN 08/22/19 08/22/19 Unknown History Magnesium Hydroxide [Milk of 400 mg PO Q24HR PRN 08/22/19 08/22/19 Unknown History Magnesia] Melatonin 3 mg PO QHS 08/22/19 08/22/19 Unknown History Multivit with Minerals No.55 1 tab PO DAILY 08/22/19 08/22/19 Unknown History Pantoprazole [Protonix] 40 mg PO QDAY 08/22/19 08/22/19 Unknown History Sennosides/Docusate Sodium [Senna 1 each PO DAILY 08/22/19 08/22/19 Unknown History Plus Tablet] diphenhydrAMINE [Benadryl CAP] 25 mg PO Q6HR PRN 08/22/19 08/22/19 Unknown History Active Medications: Generic Name Dose Route Start Last Admin Trade Name Freq PRN Reason Stop Dose Admin Albuterol 2.5 mg 08/27/19 23:52 Proventil IH Q4HRT PRN protocol Albuterol/Ipratropium 1 ampul 08/27/19 15:15 08/28/19 07:23 Duoneb *Not For Prn Use* IH 1 ampul Q6HRT KJ Administration Lipase/Protease/Amylase 1 each 08/26/19 12:00 Iván Solano 10,500 Unit FEEDTUBE PRN PRN For Clogged Feeding Tube Chlorothiazide Sodium 500 mg 08/25/19 10:00 08/28/19 10:00 Diuril IV 500 mg BID KJ Administration Dextrose 50 ml 08/28/19 07:56 D50w (25gm) Syringe IV Q30MIN PRN Hypoglycemia Hydromorphone HCl 0.25 mg 08/22/19 21:17 08/27/19 23:02 Dilaudid IV 0.25 mg Q3H PRN Administration Pain, Moderate (4-6) Ceftriaxone Sodium 1 gm in 50 mls @ 100 mls/hr 08/22/19 22:00 08/27/19 22:24 Rocephin/Ns 1 Gm/50 Ml IV 100 mls/hr Q24HR@2200 KJ Administration Protocol Insulin Human Lispro 0 unit 08/28/19 08:00 08/28/19 08:37 Humalog SUB-Q 3 unit Q6HR KJ Administration Protocol Lactulose 20 gm 08/27/19 14:00 08/28/19 06:05 Cephulac PO 20 gm Q8HR KJ Administration Lansoprazole 30 mg 08/27/19 10:00 08/28/19 10:00 Prevacid Solutab FEEDTUBE 30 mg BID KJ Administration Nadolol 20 mg 08/27/19 11:00 08/28/19 10:02 Corgard PO Not Given QDAY KJ Simple Syrup 15 ml 08/26/19 12:00 Simple Syrup FEEDTUBE PRN PRN Hypoglycemia Simple Syrup 30 ml 08/26/19 12:00 Simple Syrup FEEDTUBE PRN PRN Hypoglycemia Sodium Bicarbonate 325 mg 08/26/19 12:00 Sodium Bicarbonate FEEDTUBE PRN PRN For Clogged Feeding Tube Sodium Chloride 10 ml 08/22/19 22:00 08/28/19 10:03 Sodium Chloride Flush Syringe 10 Ml IV 10 ml BID KJ Administration Sodium Chloride 10 ml 08/22/19 21:11 Sodium Chloride Flush Syringe 10 Ml IV PRN PRN LINE FLUSH
--- NOTE | 2019-08-28 12:43 | Progress Note ---
Assessment and Plan - Patient Problems (1) Acute renal failure Current Visit: Yes Status: Acute Qualifiers: Acute renal failure type: unspecified Qualified Code(s): N17.9 - Acute kidney failure, unspecified (2) Anemia Current Visit: Yes Status: Acute Qualifiers: Anemia type: unspecified type Qualified Code(s): D64.9 - Anemia, unspecified (3) Hepatic encephalopathy Current Visit: Yes Status: Acute (4) Hyperkalemia Current Visit: Yes Status: Acute (5) Uremia Current Visit: Yes Status: Acute (6) Leukocytosis Current Visit: No Status: Acute Qualifiers: Leukocytosis type: leukemoid reaction Qualified Code(s): D72.823 - Leukemoid reaction (7) CVA, old, 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 (8) Coronary artery disease Current Visit: No Status: Chronic (9) History of cirrhosis Current Visit: No Status: Chronic (10) Hypertension Current Visit: No Status: Chronic Qualifiers: Hypertension type: essential hypertension Qualified Code(s): I10 - Essential (primary) hypertension (11) Dysphagia Current Visit: Yes Status: Acute Subjective Principal diagnosis: GI bleed Interval history: Awake, sitting up in bed Objective Vital Signs - 12hr 08/28/19 08/28/19 08/28/19 01:01 02:00 02:10 Temperature Pulse Rate 64 71 Pulse Rate [ 77 Anterior Bilateral Throughout] Pulse Rate [ From Monitor] Respiratory 17 18 Rate Respiratory 18 Rate [Anterior Bilateral Throughout] Blood Pressure 109/59 127/67 O2 Sat by Pulse 98 97 Oximetry 08/28/19 08/28/19 08/28/19 03:01 03:58 04:00 Temperature Pulse Rate 66 68 70 Pulse Rate [ Anterior Bilateral Throughout] Pulse Rate [ From Monitor] Respiratory 16 17 21 Rate Respiratory Rate [Anterior Bilateral Throughout] Blood Pressure 86/46 101/46 113/57 O2 Sat by Pulse 99 99 97 Oximetry 08/28/19 08/28/19 08/28/19 04:35 05:00 06:00 Temperature 98.9 F Pulse Rate 70 73 Pulse Rate [ Anterior Bilateral Throughout] Pulse Rate [ From Monitor] Respiratory 16 17 Rate Respiratory Rate [Anterior Bilateral Throughout] Blood Pressure 119/50 98/53 O2 Sat by Pulse 99 100 Oximetry 08/28/19 08/28/19 08/28/19 07:00 07:23 08:00 Temperature 98.4 F Pulse Rate 72 76 74 Pulse Rate [ 72 Anterior Bilateral Throughout] Pulse Rate [ 75 From Monitor] Respiratory 18 18 17 Rate Respiratory 18 Rate [Anterior Bilateral Throughout] Blood Pressure 96/51 96/51 106/57 O2 Sat by Pulse 98 97 99 Oximetry 08/28/19 10:02 Temperature Pulse Rate 78 Pulse Rate [ Anterior Bilateral Throughout] Pulse Rate [ From Monitor] Respiratory Rate Respiratory Rate [Anterior Bilateral Throughout] Blood Pressure 116/60 O2 Sat by Pulse Oximetry Constitutional: no acute distress, alert Eyes: non-icteric ENT: oropharynx dry Neck: supple Effort: normal Ascultation: Bilateral: wheezes (faint expiratory wheezes bilaterally), rhonchi (occasional upper airway) Cardiovascular: regular rate and rhythm (no mrg) Gastrointestinal: normoactive bowel sounds, soft, non-tender, non-distended Extremities: anasarca (2+ bilateral LE edema) Neurologic: non-focal exam Psychiatric: mood appropriate, affect normal CBC and BMP: 08/28/19 Unknown 08/28/19 Unknown ABG, PT/INR, D-dimer: PT/INR, D-dimer PT 17.8 Sec. (12.2-14.9) H 08/24/19 04:07 INR 1.51 (0.87-1.13) H 08/24/19 04:07 Abnormal lab findings: Abnormal Labs 08/22/19 08/22/19 08/22/19 12:14 12:39 12:39 WBC 13.0 H RBC 3.10 L Hgb 7.9 L Hct 26.7 L MCV MCH 26 L MCHC 30 L RDW 25.6 H Plt Count Lymph % (Auto) 9.3 L [place] % (Auto) Lymph # [place] # Seg Neutrophils % 84.0 H Seg Neuts % (Manual) Lymphocytes % (Manual) Seg Neutrophils # 10.9 H Seg Neutrophils # Man Lymphocytes # (Manual) Monocytes # (Manual) PT 23.1 H INR 2.10 H Sodium Potassium 7.2 H* Chloride Carbon Dioxide 12 L BUN 195 H Creatinine 15.2 H Glucose 132 H POC Glucose Calcium 7.5 L Phosphorus Magnesium 3.50 H AST Alkaline Phosphatase 136 H Ammonia NT-Pro-B Natriuret Pep 1788 H Total Protein Albumin 3.0 L Urine WBC (Auto) Urine Creatinine Crossmatch 08/22/19 08/22/19 08/22/19 12:39 12:39 15:12 WBC RBC Hgb Hct MCV MCH MCHC RDW Plt Count Lymph % (Auto) [place] % (Auto) Lymph # [place] # Seg Neutrophils % Seg Neuts % (Manual) Lymphocytes % (Manual) Seg Neutrophils # Seg Neutrophils # Man Lymphocytes # (Manual) Monocytes # (Manual) PT INR Sodium Potassium Chloride Carbon Dioxide BUN Creatinine Glucose POC Glucose Calcium Phosphorus Magnesium AST Alkaline Phosphatase Ammonia 267.0 H NT-Pro-B Natriuret Pep Total Protein Albumin Urine WBC (Auto) 22.0 H Urine Creatinine Crossmatch See Detail 08/22/19 08/22/19 08/23/19 18:13 23:07 03:46 WBC 12.2 H RBC 2.73 L Hgb 7.7 L 7.0 L Hct 23.6 L 21.5 L MCV 79 L MCH 26 L MCHC RDW 24.9 H Plt Count Lymph % (Auto) 6.9 L [place] % (Auto) 11.4 H Lymph # 0.8 L [place] # 1.4 H Seg Neutrophils % 81.6 H Seg Neuts % (Manual) Lymphocytes % (Manual) Seg Neutrophils # 10.0 H Seg Neutrophils # Man Lymphocytes # (Manual) Monocytes # (Manual) PT INR Sodium 148 H D Potassium Chloride 107.1 H Carbon Dioxide 15 L BUN 173 H Creatinine 11.0 H Glucose 151 H POC Glucose Calcium 8.2 L Phosphorus Magnesium AST Alkaline Phosphatase Ammonia NT-Pro-B Natriuret Pep Total Protein Albumin Urine WBC (Auto) Urine Creatinine Crossmatch 08/23/19 08/23/19 08/24/19 03:46 13:52 00:25 WBC RBC Hgb 7.5 L Hct 23.6 L MCV MCH MCHC RDW Plt Count Lymph % (Auto) [place] % (Auto) Lymph # [place] # Seg Neutrophils % Seg Neuts % (Manual) Lymphocytes % (Manual) Seg Neutrophils # Seg Neutrophils # Man Lymphocytes # (Manual) Monocytes # (Manual) PT INR Sodium 160 H D Potassium 3.4 L D Chloride 121.8 H Carbon Dioxide BUN 116 H Creatinine 5.4 H D Glucose 209 H POC Glucose 181 H Calcium Phosphorus Magnesium AST Alkaline Phosphatase Ammonia NT-Pro-B Natriuret Pep Total Protein Albumin Urine WBC (Auto) Urine Creatinine Crossmatch 08/24/19 08/24/19 08/24/19 04:07 04:07 04:07 WBC 20.5 H RBC 2.97 L Hgb 7.7 L Hct 23.5 L MCV 79 L MCH 26 L MCHC RDW 24.4 H Plt Count 482 H Lymph % (Auto) [place] % (Auto) Lymph # [place] # Seg Neutrophils % Seg Neuts % (Manual) 92.0 H Lymphocytes % (Manual) 3.0 L Seg Neutrophils # Seg Neutrophils # Man 18.9 H Lymphocytes # (Manual) 0.6 L Monocytes # (Manual) 1.0 H PT 17.8 H INR 1.51 H Sodium 172 H* D Potassium Chloride 131.1 H Carbon Dioxide BUN 44 H Creatinine Glucose 175 H POC Glucose Calcium Phosphorus 2.30 L Magnesium AST Alkaline Phosphatase Ammonia NT-Pro-B Natriuret Pep Total Protein Albumin Urine WBC (Auto) Urine Creatinine Crossmatch 08/24/19 08/24/19 08/24/19 09:28 11:36 13:18 WBC RBC Hgb Hct MCV MCH MCHC RDW Plt Count Lymph % (Auto) [place] % (Auto) Lymph # [place] # Seg Neutrophils % Seg Neuts % (Manual) Lymphocytes % (Manual) Seg Neutrophils # Seg Neutrophils # Man Lymphocytes # (Manual) Monocytes # (Manual) PT INR Sodium 171 H* 172 H* Potassium Chloride Carbon Dioxide BUN Creatinine Glucose POC Glucose 190 H Calcium Phosphorus Magnesium AST Alkaline Phosphatase Ammonia NT-Pro-B Natriuret Pep Total Protein Albumin Urine WBC (Auto) Urine Creatinine Crossmatch 08/24/19 08/24/19 08/24/19 16:44 19:31 19:31 WBC RBC Hgb 6.9 L Hct 22.8 L MCV MCH MCHC RDW Plt Count Lymph % (Auto) [place] % (Auto) Lymph # [place] # Seg Neutrophils % Seg Neuts % (Manual) Lymphocytes % (Manual) Seg Neutrophils # Seg Neutrophils # Man Lymphocytes # (Manual) Monocytes # (Manual) PT INR Sodium 170 H* Potassium Chloride Carbon Dioxide BUN Creatinine Glucose POC Glucose 203 H Calcium Phosphorus Magnesium AST Alkaline Phosphatase Ammonia NT-Pro-B Natriuret Pep Total Protein Albumin Urine WBC (Auto) Urine Creatinine Crossmatch 08/25/19 08/25/19 08/25/19 05:02 05:02 09:58 WBC RBC Hgb 6.7 L Hct 22.0 L MCV MCH MCHC RDW Plt Count Lymph % (Auto) [place] % (Auto) Lymph # [place] # Seg Neutrophils % Seg Neuts % (Manual) Lymphocytes % (Manual) Seg Neutrophils # Seg Neutrophils # Man Lymphocytes # (Manual) Monocytes # (Manual) PT INR Sodium 169 H* 166 H* Potassium Chloride 126.0 H Carbon Dioxide BUN 23 H Creatinine Glucose 149 H POC Glucose Calcium Phosphorus 2.40 L Magnesium AST Alkaline Phosphatase Ammonia NT-Pro-B Natriuret Pep Total Protein Albumin Urine WBC (Auto) Urine Creatinine Crossmatch 08/25/19 08/25/19 08/25/19 10:45 10:45 23:01 WBC RBC Hgb Hct MCV MCH MCHC RDW Plt Count Lymph % (Auto) [place] % (Auto) Lymph # [place] # Seg Neutrophils % Seg Neuts % (Manual) Lymphocytes % (Manual) Seg Neutrophils # Seg Neutrophils # Man Lymphocytes # (Manual) Monocytes # (Manual) PT INR Sodium 160 H Potassium Chloride Carbon Dioxide BUN Creatinine Glucose POC Glucose Calcium Phosphorus Magnesium AST Alkaline Phosphatase Ammonia NT-Pro-B Natriuret Pep Total Protein Albumin Urine WBC (Auto) 17.0 H Urine Creatinine 70.8 H Crossmatch 08/26/19 08/26/19 08/27/19 04:25 05:48 05:15 WBC 26.8 H 23.8 H RBC 3.43 L 3.39 L Hgb 9.1 L 9.1 L Hct 28.5 L D 28.7 L MCV 83 L MCH 27 L 27 L MCHC RDW 23.0 H 22.4 H Plt Count Lymph % (Auto) [place] % (Auto) Lymph # [place] # Seg Neutrophils % Seg Neuts % (Manual) Lymphocytes % (Manual) Seg Neutrophils # Seg Neutrophils # Man Lymphocytes # (Manual) Monocytes # (Manual) PT INR Sodium 159 H Potassium 3.4 L Chloride 116.4 H Carbon Dioxide BUN Creatinine Glucose 159 H POC Glucose Calcium 7.8 L Phosphorus Magnesium AST 73 H Alkaline Phosphatase Ammonia NT-Pro-B Natriuret Pep Total Protein 6.2 L Albumin 2.9 L Urine WBC (Auto) Urine Creatinine Crossmatch 08/27/19 08/27/19 08/27/19 05:15 11:45 17:08 WBC RBC Hgb Hct MCV MCH MCHC RDW Plt Count Lymph % (Auto) [place] % (Auto) Lymph # [place] # Seg Neutrophils % Seg Neuts % (Manual) Lymphocytes % (Manual) Seg Neutrophils # Seg Neutrophils # Man Lymphocytes # (Manual) Monocytes # (Manual) PT INR Sodium 147 H D Potassium 3.2 L Chloride Carbon Dioxide BUN Creatinine Glucose 154 H POC Glucose 197 H 167 H Calcium 7.6 L Phosphorus 2.10 L D Magnesium 1.30 L AST Alkaline Phosphatase Ammonia NT-Pro-B Natriuret Pep Total Protein Albumin Urine WBC (Auto) Urine Creatinine Crossmatch 08/28/19 08/28/19 08/28/19 08:13 08:19 12:02 WBC RBC Hgb Hct MCV MCH MCHC RDW Plt Count Lymph % (Auto) [place] % (Auto) Lymph # [place] # Seg Neutrophils % Seg Neuts % (Manual) Lymphocytes % (Manual) Seg Neutrophils # Seg Neutrophils # Man Lymphocytes # (Manual) Monocytes # (Manual) PT INR Sodium Potassium Chloride Carbon Dioxide BUN Creatinine Glucose 247 H POC Glucose 240 H 194 H Calcium 7.6 L D Phosphorus Magnesium AST Alkaline Phosphatase Ammonia NT-Pro-B Natriuret Pep Total Protein Albumin Urine WBC (Auto) Urine Creatinine Crossmatch 08/28/19 08/28/19 Unknown Unknown WBC 39.8 H RBC 3.24 L Hgb 8.8 L Hct 28.0 L MCV MCH 27 L MCHC 31 L RDW 23.5 H Plt Count Lymph % (Auto) [place] % (Auto) Lymph # [place] # Seg Neutrophils % Seg Neuts % (Manual) Lymphocytes % (Manual) Seg Neutrophils # Seg Neutrophils # Man Lymphocytes # (Manual) Monocytes # (Manual) PT INR Sodium 126 L D Potassium 6.9 H* D Chloride 95.0 L Carbon Dioxide BUN Creatinine Glucose 567 H* POC Glucose Calcium 6.6 L Phosphorus Magnesium AST Alkaline Phosphatase Ammonia NT-Pro-B Natriuret Pep Total Protein Albumin Urine WBC (Auto) Urine Creatinine Crossmatch
--- NOTE | 2019-08-28 13:28 | Cat Scan Report ---
CT head/brain wo con INDICATION / CLINICAL INFORMATION: 64 years Male; APHASIA. TECHNIQUE: Routine CT head without contrast. All CT scans at this location are performed using CT dos e reduction for ALARA by means of automated exposure control. COMPARISON: 03/21/2014 FINDINGS: BRAIN / INTRACRANIAL CONTENTS: Old, large MCA territorial infarct seen on the right. Right [employer] involv ement seen. Watershed type infarct seen in the left cerebral hemisphere in the frontoparietal region, as well as extending posterior to the parietal-occipital region. It would be difficult to evaluate f or small areas of julio-infarct ischemia without diffusion imaging by MRI. Similar type findings seen on prior. Old, small lacunar-type infarcts seen in the lateral thalamic region on the left. Otherwise, no acute hemorrhage, mass effect, midline shift, hydrocephalus, or acute, large territoria l infarct. cerebral and cerebellar atrophy. There are mild to moderate areas of decreased attenuation in the white matter of the cerebral hemisph eres, as well as the gangliocapsular regions. These are nonspecific findings and may be related to mi croangiopathy (hypertension, diabetes, atherosclerosis), given the patient's age. It might be difficu lt to evaluate for small areas of ischemia without diffusion imaging by MRI. CRANIOCERVICAL JUNCTION: No significant abnormality. ORBITS: No significant abnormality of visualized orbits. SINUSES / MASTOIDS: No significant abnormality the visualized paranasal sinuses or mastoid air cells. ADDITIONAL FINDINGS: NG tube noted. Minimal atherosclerotic disease is seen in the anterior circulat ion. IMPRESSION: 1. No focal mass, hemorrhage, hydrocephalus, or acute, large territorial infarct. Follow-up with diff usion imaging by MRI, as clinically warranted. Signer Name: David Aquino MD, III Signed: 08/28/2019 1:24 PM Workstation Name: [id number]
--- NOTE | 2019-08-28 14:53 | Progress Note ---
Assessment and Plan Assessment and plan: This is a 64 year old man resident of a [place] with known hx of DM, HTN, Cirrhosis w/ varices, CVA and CAD who was brought to [facility] ED for evaluation of AMS and abdominal distention. Patient on admission was unable to provide any information, per family he is total care although with preserved mental function . He also informs us that the patient has had hemetemesis but not report of nausea or prior vomiting * In the ED the Patient was noted to have creat 15.2, K 7.2, HB 7.[address] abdomen showed obstructive uropathy. He is s/p ferguson catheter. Nephrology was consulted for further evaluation. * Within 48 hrs he was noted to have a sodium of 170s * PER GI * hold blood thinning medications, BMs overnight with continue dark/black stool No hematemesis. * last EGD 2015 showed grade I esophageal varices (not source of bleeding), complex hiatal hernia, and vascular lesion (?prolapsed hernia tissue, ?Gastric varices, ?GIST) in the stomach not amenable to endoscopic tx requiring embolization by IR. * Octreotide -> Nadolol once taking PO; stop Eliquis; trend H/H, INR; no EGD planned * Failed swallow eval 08/25/19, also failed repeat * Was placed on BiPAP and solumedrol due to shortness of breath at 08/28/19 * Initial lab today (08/28/19) with high k and low sodium and high glucose was an error, repeat shows more consistent med. * Plan to repeat swallow eval on Friday, and possible PEG or Hospice, depending on family choice Acute blood loss anemia Concerning for UGIB Hepatic encephalopathy Leukocytosis- ?source. Severe Hypernatremia- Improved Metabolic Acidosis with Uremia Obstructive Uropathy/urinary retention LAVONNE 2/2 To Obstructive uropathy with possible underlying vasomotor nephropathy- improving Hyperkalemia-resolved Acute Cystitis Hx of Prior CVA Cirrhosis WITH HX OF VARICES Secondary coagulopathy Plan Continue supportive care Obtain CT head to ensure no other pathology Aspiration precautions, as silent aspiration was noted on Video swallow Will discuss with family and see if PEG is appropriate Switch to PO meds VIA NGT Change octeriotide and ppi to po equivalent. Discussed with GI doubt continued GI bleed, will work on transition to PO Hypernatremia, showing marked improvement No further evidence of Bleeding, GI signed off Transfused total PRBC 3 units with good response anemia Continue ferguson, will likely discharge with ferguson to leg bag and outpatient Urol ogy eval Continue Empiric abx, await Urine culture Continue Lactulose enema Advance life care plan, patient per family wish per daughter his wishes were to be DNR/DNI and I asked her to sign the appropriate documents stating such, as his legal next of kin (along with his son)- confirmed with them and signed Continue Neuro check Poor prognosis. Discussed with family Labs in am History Interval history: Patient seen and examined, resting comfortable, Was placed on BIPAP, last night, mildly confused although back to baseline-(Dementia) Hospitalist Physical - Physical exam Narrative exam: General appearance: Present: no acute distress, Altered, ON bipap - EENT ENT: hearing intact - Neck Neck: Present: supple, normal ROM - Respiratory Respiratory effort: normal Respiratory: bilateral: CTA - Cardiovascular Rhythm: regular Heart Sounds: Present: S1 & S2 - Extremities Extremity abnormal: other (Left BKA) - Abdominal General gastrointestinal: soft, non-tender, distended, normal bowel sounds - Integumentary Integumentary: Present: warm, dry, noted echymosis right antecubital region - Neurologic Neurologic: other (Awake, Oriented to person, residual left sided weakness from prev stroke) ON Restraints for safety on right upper ext - Constitutional Vitals: Temp Pulse Resp BP Pulse Ox 98.4 F 74 22 125/65 91 08/28/19 13:20 08/28/19 13:20 08/28/19 13:20 08/28/19 13:20 08/28/19 13:20 General appearance: Present: no acute distress Results - Labs CBC & Chem 7: 08/28/19 Unknown 08/28/19 Unknown Labs: Laboratory Last Values WBC 39.8 K/mm3 (4.5-11.0) H 08/28/19 Unknown RBC 3.24 M/mm3 (3.65-5.03) L 08/28/19 Unknown Hgb 8.8 gm/dl (11.8-15.2) L 08/28/19 Unknown Hct 28.0 % (35.5-45.6) L 08/28/19 Unknown MCV 86 fl (84-94) 08/28/19 Unknown MCH 27 pg (28-32) L 08/28/19 Unknown MCHC 31 % (32-34) L 08/28/19 Unknown RDW 23.5 % (13.2-15.2) H 08/28/19 Unknown Plt Count 193 K/mm3 (140-440) 08/28/19 Unknown Lymph % (Auto) 6.9 % (13.4-35.0) L 08/23/19 03:46 Appling % (Auto) Knowledge Manager 08/24/19 04:07 Eos % (Auto) 0.0 % (0.0-4.3) 08/23/19 03:46 Baso % (Auto) 0.1 % (0.0-1.8) 08/23/19 03:46 Lymph # 0.8 K/mm3 (1.2-5.4) L 08/23/19 03:46 Appling # 1.4 K/mm3 (0.0-0.8) H 08/23/19 03:46 Eos # 0.0 K/mm3 (0.0-0.4) 08/23/19 03:46 Baso # 0.0 K/mm3 (0.0-0.1) 08/23/19 03:46 Add Manual Diff Complete 08/24/19 04:07 Total Counted 100 08/24/19 04:07 Seg Neutrophils % 81.6 % (40.0-70.0) H 08/23/19 03:46 Seg Neuts % (Manual) 92.0 % (40.0-70.0) H 08/24/19 04:07 Band Neutrophils % 0 % 08/24/19 04:07 Lymphocytes % (Manual) 3.0 % (13.4-35.0) L 08/24/19 04:07 Reactive Lymphs % (Man) 0 % 08/24/19 04:07 Monocytes % (Manual) 5.0 % (0.0-7.3) 08/24/19 04:07 Eosinophils % (Manual) 0 % (0.0-4.3) 08/24/19 04:07 Basophils % (Manual) 0 % (0.0-1.8) 08/24/19 04:07 Metamyelocytes % 0 % 08/24/19 04:07 Myelocytes % 0 % 08/24/19 04:07 Promyelocytes % 0 % 08/24/19 04:07 Blast Cells % 0 % 08/24/19 04:07 Nucleated RBC % Not Reportable 08/24/19 04:07 Seg Neutrophils # 10.0 K/mm3 (1.8-7.7) H 08/23/19 03:46 Seg Neutrophils # Man 18.9 K/mm3 (1.8-7.7) H 08/24/19 04:07 Band Neutrophils # 0.0 K/mm3 08/24/19 04:07 Lymphocytes # (Manual) 0.6 K/mm3 (1.2-5.4) L 08/24/19 04:07 Abs React Lymphs (Man) 0.0 K/mm3 08/24/19 04:07 Monocytes # (Manual) 1.0 K/mm3 (0.0-0.8) H 08/24/19 04:07 Eosinophils # (Manual) 0.0 K/mm3 (0.0-0.4) 08/24/19 04:07 Basophils # (Manual) 0.0 K/mm3 (0.0-0.1) 08/24/19 04:07 Metamyelocytes # 0.0 K/mm3 08/24/19 04:07 Myelocytes # 0.0 K/mm3 08/24/19 04:07 Promyelocytes # 0.0 K/mm3 08/24/19 04:07 Blast Cells # 0.0 K/mm3 08/24/19 04:07 WBC Morphology Not Reportable 08/24/19 04:07 Hypersegmented Neuts Not Reportable 08/24/19 04:07 Hyposegmented Neuts Not Reportable 08/24/19 04:07 Hypogranular Neuts Not Reportable 08/24/19 04:07 Smudge Cells Not Reportable 08/24/19 04:07 Toxic Granulation Not Reportable 08/24/19 04:07 Toxic Vacuolation Not Reportable 08/24/19 04:07 Dohle Bodies Not Reportable 08/24/19 04:07 Pelger-Huet Anomaly Not Reportable 08/24/19 04:07 Ramonita Rods Not Reportable 08/24/19 04:07 Platelet Estimate Consistent w auto 08/24/19 04:07 Clumped Platelets Not Reportable 08/24/19 04:07 Plt Clumps, EDTA Not Reportable 08/24/19 04:07 Large Platelets Not Reportable 08/24/19 04:07 Giant Platelets Not Reportable 08/24/19 04:07 Platelet Satelliting Not Reportable 08/24/19 04:07 Plt Morphology Comment Not Reportable 08/24/19 04:07 RBC Morphology Not Reportable 08/24/19 04:07 Dimorphic RBCs Not Reportable 08/24/19 04:07 Polychromasia Not Reportable 08/24/19 04:07 Hypochromasia 1+ 08/24/19 04:07 Poikilocytosis 2+ 08/24/19 04:07 Anisocytosis 2+ 08/24/19 04:07 Microcytosis Not Reportable 08/24/19 04:07 Macrocytosis Not Reportable 08/24/19 04:07 Spherocytes Not Reportable 08/24/19 04:07 Pappenheimer Bodies Not Reportable 08/24/19 04:07 Sickle Cells Not Reportable 08/24/19 04:07 Target Cells 2+ 08/24/19 04:07 Tear Drop Cells Not Reportable 08/24/19 04:07 Ovalocytes Not Reportable 08/24/19 04:07 Helmet Cells Not Reportable 08/24/19 04:07 Valle-Lastrup Bodies Not Reportable 08/24/19 04:07 Newbern Rings Not Reportable 08/24/19 04:07 Freddy Cells Not Reportable 08/24/19 04:07 Bite Cells Not Reportable 08/24/19 04:07 Crenated Cell Not Reportable 08/24/19 04:07 Elliptocytes 1+ 08/24/19 04:07 Acanthocytes (Spur) Not Reportable 08/24/19 04:07 Rouleaux Not Reportable 08/24/19 04:07 Hemoglobin C Crystals Not Reportable 08/24/19 04:07 Schistocytes Not Reportable 08/24/19 04:07 Malaria parasites Not Reportable 08/24/19 04:07 Noel Bodies Not Reportable 08/24/19 04:07 Hem Pathologist Commnt No 08/24/19 04:07 PT 17.8 Sec. (12.2-14.9) H 08/24/19 04:07 INR 1.51 (0.87-1.13) H 08/24/19 04:07 APTT 31.8 Sec. (24.2-36.6) 08/22/19 12:39 Sodium 126 mmol/L (137-145) L D 08/28/19 Unknown Potassium 6.9 mmol/L (3.6-5.0) H* D 08/28/19 Unknown Chloride 95.0 mmol/L (98-107) L 08/28/19 Unknown Carbon Dioxide 24 mmol/L (22-30) 08/28/19 Unknown Anion Gap 14 mmol/L 08/28/19 Unknown BUN 15 mg/dL (9-20) 08/28/19 Unknown Creatinine 0.8 mg/dL (0.8-1.5) 08/28/19 Unknown Estimated GFR > 60 ml/min 08/28/19 Unknown BUN/Creatinine Ratio 19 % 08/28/19 Unknown Glucose 567 mg/dL (75-100) H* 08/28/19 Unknown POC Glucose 194 (70-105) H 08/28/19 12:02 Osmolality 351 Mosm/kg 08/25/19 09:58 Lactic Acid 1.60 mmol/L (0.7-2.0) 08/22/19 23:07 Calcium 6.6 mg/dL (8.4-10.2) L 08/28/19 Unknown Phosphorus 2.10 mg/dL (2.5-4.5) L D 08/27/19 05:15 Magnesium 1.30 mg/dL (1.7-2.3) L 08/27/19 05:15 Total Bilirubin 0.50 mg/dL (0.1-1.2) 08/26/19 05:48 Direct Bilirubin < 0.2 mg/dL (0-0.2) 08/22/19 12:39 Indirect Bilirubin 0.1 mg/dL 08/22/19 12:39 AST 73 units/L (5-40) H 08/26/19 05:48 ALT 28 units/L (7-56) 08/26/19 05:48 Alkaline Phosphatase 118 units/L (35-129) 08/26/19 05:48 Ammonia 38.0 umol/L (25-60) 08/24/19 04:07 Troponin T < 0.010 ng/mL (0.00-0.029) 08/22/19 12:39 NT-Pro-B Natriuret Pep 1788 pg/mL (0-900) H 08/22/19 12:39 Total Protein 6.2 g/dL (6.3-8.2) L 08/26/19 05:48 Albumin 2.9 g/dL (3.9-5) L 08/26/19 05:48 Albumin/Globulin Ratio 0.9 % 08/26/19 05:48 Lipase 18 units/L (13-60) 08/22/19 12:39 Urine Color Yellow (Yellow) 08/25/19 10:45 Urine Turbidity Clear (Clear) 08/25/19 10:45 Urine pH 6.0 (5.0-7.0) 08/25/19 10:45 Ur Specific Newell 1.012 (1.003-1.030) 08/25/19 10:45 Urine Protein <15 mg/dl mg/dL (Negative) 08/25/19 10:45 Urine Glucose (UA) Neg mg/dL (Negative) 08/25/19 10:45 Urine Ketones Neg mg/dL (Negative) 08/25/19 10:45 Urine Blood Sm (Negative) 08/25/19 10:45 Urine Nitrite Neg (Negative) 08/25/19 10:45 Urine Bilirubin Neg (Negative) 08/25/19 10:45 Urine Urobilinogen < 2.0 mg/dL (<2.0) 08/25/19 10:45 Ur Leukocyte Esterase Sm (Negative) 08/25/19 10:45 Urine WBC (Auto) 17.0 /HPF (0.0-6.0) H 08/25/19 10:45 Urine RBC (Auto) 7.0 /HPF (0.0-6.0) 08/25/19 10:45 Urine Bacteria (Auto) 1+ /HPF (Negative) 08/25/19 10:45 Urine Mucus Few /HPF 08/25/19 10:45 Urine Osmolality 455 Mosm/kg 08/25/19 10:45 Urine Creatinine 70.8 mg/dL (0.1-20.0) H 08/25/19 10:45 Urine Sodium 74 mmol/L 08/25/19 10:45 Blood Type O POSITIVE 08/22/19 12:39 Antibody Screen Negative 08/22/19 12:39 Crossmatch See Detail 08/22/19 12:39 Active Medications - Current Medications Current Medications: Generic Name Dose Route Start Last Admin Trade Name Freq PRN Reason Stop Dose Admin Albuterol 2.5 mg 08/27/19 23:52 Proventil IH Q4HRT PRN protocol Albuterol/Ipratropium 1 ampul 08/27/19 15:15 08/28/19 14:23 Duoneb *Not For Prn Use* IH Not Given Q6HRT KJ Lipase/Protease/Amylase 1 each 08/26/19 12:00 Pancreazpaloma Solano 10,500 Unit FEEDTUBE PRN PRN For Clogged Feeding Tube Chlorothiazide Sodium 500 mg 08/25/19 10:00 08/28/19 10:00 Diuril IV 500 mg BID KJ Administration Dextrose 50 ml 08/28/19 07:56 D50w (25gm) Syringe IV Q30MIN PRN Hypoglycemia Hydromorphone HCl 0.25 mg 08/22/19 21:17 08/27/19 23:02 Dilaudid IV 0.25 mg Q3H PRN Administration Pain, Moderate (4-6) Ceftriaxone Sodium 1 gm in 50 mls @ 100 mls/hr 08/22/19 22:00 08/27/19 22:24 Rocephin/Ns 1 Gm/50 Ml IV 100 mls/hr Q24HR@2200 KJ Administration Protocol Insulin Human Lispro 0 unit 08/28/19 08:00 08/28/19 12:33 Humalog SUB-Q 2 unit Q6HR KJ Administration Protocol Lactulose 20 gm 08/27/19 14:00 08/28/19 06:05 Cephulac PO 20 gm Q8HR KJ Administration Lansoprazole 30 mg 08/27/19 10:00 08/28/19 10:00 Prevacid Solutab FEEDTUBE 30 mg BID KJ Administration Nadolol 20 mg 08/27/19 11:00 08/28/19 10:02 Corgard PO Not Given QDAY KJ Simple Syrup 15 ml 08/26/19 12:00 Simple Syrup FEEDTUBE PRN PRN Hypoglycemia Simple Syrup 30 ml 08/26/19 12:00 Simple Syrup FEEDTUBE PRN PRN Hypoglycemia Sodium Bicarbonate 325 mg 08/26/19 12:00 Sodium Bicarbonate FEEDTUBE PRN PRN For Clogged Feeding Tube Sodium Chloride 10 ml 08/22/19 22:00 08/28/19 10:03 Sodium Chloride Flush Syringe 10 Ml IV 10 ml BID KJ Administration Sodium Chloride 10 ml 08/22/19 21:11 Sodium Chloride Flush Syringe 10 Ml IV PRN PRN LINE FLUSH Nutrition/Malnutrition Assess - Dietary Evaluation Nutrition/Malnutrition Findings: Nutrition Notes Start: 08/26/19 10:54 Freq: Status: Active Protocol: Document 08/26/19 10:54 RS (Rec: 08/26/19 11:38 RS [id number]) Co-Sign 08/26/19 10:54 LM Nutrition Notes Need for Assessment generated from: MD Order Initial or Follow up Assessment Current Diagnosis Acute Kidney Injury,Diabetes, Hypertension Other Pertinent Diagnosis Cirrosis, hepatic ecephalopathy, Labs/Tests Na: 159 K: 3.4 Pertinent Medications reviewed Height 6 ft Weight 92.986 kg Anderson Body Weight (kg) 80.90 BMI 27.8 Weight Status Overweight Subjective/Other Information Consult for TF. Pt currently NPO d/t pt's risk for aspiration caused by a moderate to severe pharyngeal phase swallowing dysfuction per speech therapist report. Burn Absent Trauma Absent GI Symptoms Diarrhea Difficulty In Swallowing Food Allergy No Minimum of two criteria No physical signs of malnutrition #1 Nutrition Diagnosis Inadequate oral intake Etiology dysphagia As Evidenced by Signs and Symptoms NPO status Is patient on ventilator? No Is Patient Ambulatory and/or Out of Bed No REE-([facility]-confined to bed) 5875.848 Calculation Used for Recommendations [facility] Additional Notes PRO needs (1-1.2g/kg): 92-112g/day Fluid needs: 1mL/kcal Nutrition Intervention Change Diet Order: TF Nutrition Support: Osmolite 1.5 at 60 ml/hr (goal rate) Free water flush of 250ml q4hr (for hypernatremia) Decrease flush to 170mL q4hr once hypernatremia resolves Kcal 2,160 Protein (gm) 90 Fluid (mL) 1,097 Goal #1 TF tolerance Goal #2 diet advancement Anticipated Discharge Needs: unable to determine Follow-Up By: 08/30/19 Additional Comments F/U for TF tolerance/rate and MBS
[2019-08-28] MEDS: HYDROmorphone 1 MG/1 ML INJ IV PRN (20:44)
[2019-08-29 05:46] LABS: Hematocrit 29.5 % (35.5-45.6); Hemoglobin 9.2 gm/dl (11.8-15.2); Mean Corpuscular HGB Conc 31 % (32-34); Mean Corpuscular Volume 85 fl (84-94); Platelet Count 220 K/mm3 (140-440); Red Blood Count 3.48 M/mm3 (3.65-5.03)
[2019-08-29 06:03] LABS: Red Cell Distribution Width 23.4 % (13.2-15.2)
[2019-08-29 06:04] LABS: BUN/Creatinine Ratio 31; Blood Urea Nitrogen 37 mg/dL (9-20); Calcium 7.8 mg/dL (8.4-10.2); Hemolysis Index 6
[2019-08-29] MEDS: INSULIN LISPRO 100 UNIT/ML SUB-Q SCH ×4 (06:42→18:14)
[2019-08-29] MEDS: LACTULOSE 20 GM/30 ML ORAL LIQD PO SCH ×3 (06:44→22:17)
[2019-08-29] MEDS: LANSOPRAZOLE 30 MG SOLUTAB FEEDTUBE SCH ×2 (10:24→22:17)
--- NOTE | 2019-08-29 11:17 | Consultation ---
History of Present Illness - Reason for Consult Consult date: 08/29/19 leukemoid reaction Requesting physician: LISA SAMSON - History of Present Illness 64 y/o male with diabetes, liver cirrhosis with esophageal varices, multiple episodes of GI bleed, complex hiatal hernia, s/p left AKA, CVA and hypertension admitted on 08/22/2019 due to AMS, hematemesis and abdominal distension. Patient is not the best historian due to confusion. Denies recent fever or chills. In the ED, temp 98.1 -->100.3, HR 70, R 14, BP 153/56, O2 92%. WBC 13. Hg 7.9. Plat 387. Creat 15. K7.2. Ammonia 267. UA 22 wbc and mod LE. Blood culture 08/22/2019 no growth.Urine culture 08/25/2019 no growth. MRSA culture negative. CXR no acute abnormalities. CT shows bilateral hydronephrosis and marked distended bladder, mild ascitis. Ferguson cath was placed in the ED. ID consulted for worsening leukocytosis to 48K. Review of Systems: unable to obtain Past History Past Medical History: diabetes, hypertension, hyperlipidemia, liver disease, stroke Past Surgical History: appendectomy, cholecystectomy, bowel surgery (intestinal gangrene; spleen), Other (left BKA; pacemaker) Social history: full code, other ([place] resident). denies: smoking, alcohol abuse, prescription drug abuse, IV drug use Medications and Allergies Allergies Allergy/AdvReac Type Severity Reaction Status Date / Time No Known Allergies Allergy Unverified 07/11/13 08:29 Home Medications Medication Instructions Recorded Confirmed Last Taken Type Apixaban [Eliquis] 5 mg PO BID 08/22/19 08/22/19 Unknown History Ascorbic Acid [Vitamin C] 500 mg PO Q12H 08/22/19 08/22/19 Unknown History AtorvaSTATin [Lipitor] 40 mg PO QHS 08/22/19 08/22/19 Unknown History Carvedilol [Coreg] 6.25 mg PO BID 08/22/19 08/22/19 Unknown History Dicyclomine [Bentyl] 20 mg PO QID PRN 08/22/19 08/22/19 Unknown History Docusate Sodium [Colace] 100 mg PO BID 08/22/19 08/22/19 Unknown History Flomax 0.4 mg PO QHS 08/22/19 08/22/19 Unknown History Folic Acid [Folvite] 1 mg PO QDAY 08/22/19 08/22/19 Unknown History HYDROcodone/APAP 5-325 [[place] 1 each PO Q6HR PRN 08/22/19 08/22/19 Unknown History 5/325] Ibuprofen [Motrin] 600 mg PO Q8H PRN 08/22/19 08/22/19 Unknown History Lisinopril [Zestril TAB] 10 mg PO QDAY 08/22/19 08/22/19 Unknown History Loperamide [Imodium] 2 mg PO BID PRN 08/22/19 08/22/19 Unknown History Magnesium Hydroxide [Milk of 400 mg PO Q24HR PRN 08/22/19 08/22/19 Unknown History Magnesia] Melatonin 3 mg PO QHS 08/22/19 08/22/19 Unknown History Multivit with Minerals No.55 1 tab PO DAILY 08/22/19 08/22/19 Unknown History Pantoprazole [Protonix] 40 mg PO QDAY 08/22/19 08/22/19 Unknown History Sennosides/Docusate Sodium [Senna 1 each PO DAILY 08/22/19 08/22/19 Unknown History Plus Tablet] diphenhydrAMINE [Benadryl CAP] 25 mg PO Q6HR PRN 08/22/19 08/22/19 Unknown History Active Meds: Active Medications Lipase/Protease/Amylase (Pancreaze Dr 10,500 Unit) 1 each FEEDTUBE PRN PRN PRN Reason: For Clogged Feeding Tube Dextrose (D50w (25gm) Syringe) 50 ml IV Q30MIN PRN PRN Reason: Hypoglycemia Hydromorphone HCl (Dilaudid) 0.25 mg IV Q3H PRN PRN Reason: Pain, Moderate (4-6) Last Admin: 08/28/19 20:44 Dose: 0.25 mg Documented by: Insulin Human Lispro (Humalog) 0 unit SUB-Q Q6HR KJ; Protocol Last Admin: 08/29/19 06:42 Dose: 2 unit Documented by: Lactulose (Cephulac) 20 gm PO Q8HR KJ Last Admin: 08/29/19 06:44 Dose: 20 gm Documented by: Lansoprazole (Prevacid Solutab) 30 mg FEEDTUBE BID [facility] Last Admin: 08/29/19 10:24 Dose: 30 mg Documented by: Nadolol (Corgard) 20 mg PO QDAY [facility] Last Admin: 08/28/19 10:02 Dose: Not Given Documented by: Simple Syrup (Simple Syrup) 15 ml FEEDTUBE PRN PRN PRN Reason: Hypoglycemia Simple Syrup (Simple Syrup) 30 ml FEEDTUBE PRN PRN PRN Reason: Hypoglycemia Sodium Bicarbonate (Sodium Bicarbonate) 325 mg FEEDTUBE PRN PRN PRN Reason: For Clogged Feeding Tube Sodium Chloride (Sodium Chloride Flush Syringe 10 Ml) 10 ml IV BID [facility] Last Admin: 08/29/19 10:44 Dose: 10 ml Documented by: Sodium Chloride (Sodium Chloride Flush Syringe 10 Ml) 10 ml IV PRN PRN PRN Reason: LINE FLUSH Physical Examination - Physical Exam Narrative exam: General appearance: Alert in NAD confused Eyes: anicteric sclerae, moist conjunctivae; no lid-lag; PERRLA HENT: Atraumatic; oropharynx mirian+NGT Lungs: CTA, with normal respiratory effort and no intercostal retractions CV: RRR no murmur Abdomen: Soft, non-tender; distended Extremities: left AKA Skin: vinnie arm ecchimoses Psych: no agitated Neuro: alert confused +ferguson - Constitutional Vitals: Vital Signs Temp Pulse Resp BP Pulse Ox 99.1 F 76 20 108/62 97 08/29/19 04:46 08/29/19 04:46 08/29/19 04:46 08/29/19 04:46 08/29/19 04:46 Temperature -Last 24 Hours Temperature 99.1 F Temperature 99.5 F Temperature 98.2 F Temperature 98.4 F Results - Labs CBC & Chem 7: 08/29/19 05:32 08/29/19 05:32 Labs: Abnormal lab results 08/28/19 08/28/19 08/29/19 Range/Units 12:02 17:38 00:03 WBC (4.5-11.0) K/mm3 RBC (3.65-5.03) M/mm3 Hgb (11.8-15.2) gm/dl Hct (35.5-45.6) % MCH (28-32) pg MCHC (32-34) % RDW (13.2-15.2) % Potassium (3.6-5.0) mmol/L BUN (9-20) mg/dL Glucose (75-100) mg/dL POC Glucose 194 H 183 H 186 H (70-105) Calcium (8.4-10.2) mg/dL Phosphorus (2.5-4.5) mg/dL Magnesium (1.7-2.3) mg/dL 08/29/19 08/29/19 08/29/19 Range/Units 05:32 05:32 06:02 WBC 48.4 H* (4.5-11.0) K/mm3 RBC 3.48 L (3.65-5.03) M/mm3 Hgb 9.2 L (11.8-15.2) gm/dl Hct 29.5 L (35.5-45.6) % MCH 26 L (28-32) pg MCHC 31 L (32-34) % RDW 23.4 H (13.2-15.2) % Potassium 3.5 L (3.6-5.0) mmol/L BUN 37 H (9-20) mg/dL Glucose 165 H (75-100) mg/dL POC Glucose 179 H (70-105) Calcium 7.8 L (8.4-10.2) mg/dL Phosphorus 2.40 L (2.5-4.5) mg/dL Magnesium 2.60 H (1.7-2.3) mg/dL Assessment and Plan Cultures: Blood culture 08/22/2019 no growth. Urine culture 08/25/2019 no growth. MRSA culture negative. Assessment: 64 y/o male with diabetes, advanced liver cirrhosis with esophageal varices, multiple episodes of GI bleed, complex hiatal hernia, s/p left AKA, CVA and hypertension admitted on 08/22/2019 due to AMS, hematemesis and abdominal distension, now with leukemoid reaction: 1) Severe leukocytosis with leukemoid reaction: likely due to acute GI bleed +/- UTI with acute urinary retention. He had a similar presentation in 2016 with acute GI bleed and leukemoid reaction. UTI per se is mild and wound not cause this leukocytosis. Blood culture negative. CXR x 2 negative. Patient with diarrhea due to lactulose. 2) Hepatic encephalopathy 3) Complicated mild UTI with urinary retention s/p ferguson: UA with 22 wbc and mod LE. Urine culture no growth. 4) LAVONNE due to urtinary retention Recommendations: ceftriaxone 2 gm IV q day x 3 days GI bleed management per GI monitor leukocytosis - should get better after bleeding resolved, had similar leukemoid reaction in 2016 after severe GI bleed. he has diarrhea after lactulose I wont recommend testing for Cdiff as he could be colonized, currently no fever. Poor prognosis agree wit hospice Will follow. Gilma Campuzano MD Infectious Diseases [facility] M [phone] O [phone]
[2019-08-29] MEDS: NADOLOL 20 MG TAB PO SCH (12:24)
--- NOTE | 2019-08-29 12:58 | Progress Note ---
Assessment and Plan 1. Acute kidney injury: LAVONNE in the setting of obstructive uropathy =/- vasomotor insult. CT abdomen showed obstructive nephropathy. S/p ferguson catheter. Renal function is better. Monitor renal function. Avoid nephrotoxic agents. Meds dosage based on GFR. 2. FEN: Hypernatremia, sodium level has improved. Hypokalemia, replete K. Metabolic acidosis, improved. Replete Phos. Monitor lytes. 3. GI bleed/hematemesis: H/o Esophageal varices. Followed by GI. 4. H/o Cirrhosis. 5. Hepatic encephalopathy. 6. Acute blood loss Anemia: POA. S/p PRBC. 7. Hyperglycemia. Examination: General appearance: well-developed, appears stated age, no distress, on mittens HEENT: ATNC, IBRAHIMA Neck: trachea midline Respiratory: Clear to Ascultation Heart: S1S2, regular, no murmur Gastrointestinal: normoactive bowel sounds, NT Integumentary: stasis changes R leg : Ferguson catheter Neurologic: able to move extremities, L sided weakness noted, aphasia Musculoskeletal: L BKA Subjective Date of service: 08/29/19 Principal diagnosis: GI bleed Interval history: Patient was seen and examined at the bedside. Objective - Vital Signs Vital signs: Vital Signs - 12hr 08/29/19 08/29/19 08/29/19 04:46 11:59 12:24 Temperature 99.1 F 97.8 F Pulse Rate 76 77 77 Respiratory 20 22 Rate Blood Pressure 108/62 139/72 139/77 O2 Sat by Pulse 97 91 Oximetry - Lab 08/29/19 05:32 08/29/19 05:32 Most recent lab results Calcium 7.8 mg/dL (8.4-10.2) L 08/29/19 05:32 Phosphorus 2.40 mg/dL (2.5-4.5) L 08/29/19 05:32 Magnesium 2.60 mg/dL (1.7-2.3) H 08/29/19 05:32 Urine Creatinine 70.8 mg/dL (0.1-20.0) H 08/25/19 10:45 Urine Sodium 74 mmol/L 08/25/19 10:45 Medications & Allergies - Medications Allergies/Adverse Reactions: Allergies No Known Allergies Allergy (Unverified 07/11/13 08:29) Home Medications: Home Medications Medication Instructions Recorded Confirmed Last Taken Type Apixaban [Eliquis] 5 mg PO BID 08/22/19 08/22/19 Unknown History Ascorbic Acid [Vitamin C] 500 mg PO Q12H 08/22/19 08/22/19 Unknown History AtorvaSTATin [Lipitor] 40 mg PO QHS 08/22/19 08/22/19 Unknown History Carvedilol [Coreg] 6.25 mg PO BID 08/22/19 08/22/19 Unknown History Dicyclomine [Bentyl] 20 mg PO QID PRN 08/22/19 08/22/19 Unknown History Docusate Sodium [Colace] 100 mg PO BID 08/22/19 08/22/19 Unknown History Flomax 0.4 mg PO QHS 08/22/19 08/22/19 Unknown History Folic Acid [Folvite] 1 mg PO QDAY 08/22/19 08/22/19 Unknown History HYDROcodone/APAP 5-325 [[place] 1 each PO Q6HR PRN 08/22/19 08/22/19 Unknown History 5/325] Ibuprofen [Motrin] 600 mg PO Q8H PRN 08/22/19 08/22/19 Unknown History Lisinopril [Zestril TAB] 10 mg PO QDAY 08/22/19 08/22/19 Unknown History Loperamide [Imodium] 2 mg PO BID PRN 08/22/19 08/22/19 Unknown History Magnesium Hydroxide [Milk of 400 mg PO Q24HR PRN 08/22/19 08/22/19 Unknown History Magnesia] Melatonin 3 mg PO QHS 08/22/19 08/22/19 Unknown History Multivit with Minerals No.55 1 tab PO DAILY 08/22/19 08/22/19 Unknown History Pantoprazole [Protonix] 40 mg PO QDAY 08/22/19 08/22/19 Unknown History Sennosides/Docusate Sodium [Senna 1 each PO DAILY 08/22/19 08/22/19 Unknown History Plus Tablet] diphenhydrAMINE [Benadryl CAP] 25 mg PO Q6HR PRN 08/22/19 08/22/19 Unknown History Active Medications: Generic Name Dose Route Start Last Admin Trade Name Freq PRN Reason Stop Dose Admin Lipase/Protease/Amylase 1 each 08/26/19 12:00 Pancrekiara Solano 10,500 Unit FEEDTUBE PRN PRN For Clogged Feeding Tube Dextrose 50 ml 08/28/19 07:56 D50w (25gm) Syringe IV Q30MIN PRN Hypoglycemia Hydromorphone HCl 0.25 mg 08/22/19 21:17 08/28/19 20:44 Dilaudid IV 0.25 mg Q3H PRN Administration Pain, Moderate (4-6) Insulin Human Lispro 0 unit 08/28/19 08:00 08/29/19 12:18 Humalog SUB-Q Not Given Q6HR KJ Protocol Lactulose 20 gm 08/27/19 14:00 08/29/19 06:44 Cephulac PO 20 gm Q8HR KJ Administration Lansoprazole 30 mg 08/27/19 10:00 08/29/19 10:24 Prevacid Solutab FEEDTUBE 30 mg BID KJ Administration Nadolol 20 mg 08/27/19 11:00 08/29/19 12:24 Corgard PO 20 mg QDAY KJ Administration Simple Syrup 15 ml 08/26/19 12:00 Simple Syrup FEEDTUBE PRN PRN Hypoglycemia Simple Syrup 30 ml 08/26/19 12:00 Simple Syrup FEEDTUBE PRN PRN Hypoglycemia Sodium Bicarbonate 325 mg 08/26/19 12:00 Sodium Bicarbonate FEEDTUBE PRN PRN For Clogged Feeding Tube Sodium Chloride 10 ml 08/22/19 22:00 08/29/19 10:44 Sodium Chloride Flush Syringe 10 Ml IV 10 ml BID KJ Administration Sodium Chloride 10 ml 08/22/19 21:11 Sodium Chloride Flush Syringe 10 Ml IV PRN PRN LINE FLUSH
[2019-08-29] MEDS ORDERED: POTASSIUM PHOSPHATE 30 MMOL in DEXTROSE 5% IN WATER 500 ML IV ONE (14:00)
--- NOTE | 2019-08-29 14:15 | Progress Note ---
Assessment and Plan Acute blood loss anemia Concerning for UGIB--Improved Hepatic encephalopathy Leukocytosis- ?source. --leukemoid reaction?? Severe Hypernatremia- Improved Metabolic Acidosis with Uremia Obstructive Uropathy/urinary retention LAVONNE 2/2 To Obstructive uropathy with possible underlying vasomotor nephropathy- improving Hyperkalemia-resolved Acute Cystitis Hx of Prior CVA Cirrhosis WITH HX OF VARICES Secondary coagulopathy Plan Continue supportive care LAVONNE--Resolved-Cr normal CT head --NAF-Reviewed Aspiration precautions, as silent aspiration was noted on Video swallow Will discuss with family and see if PEG is appropriate Switch to PO meds VIA NGT Change octeriotide and ppi to po equivalent. Discussed with GI doubt continued GI bleed, will work on transition to PO Hypernatremia, -Improved No further evidence of Bleeding, GI signed off Transfused total PRBC 3 units with good response anemia Continue ferguson, will likely discharge with ferguson to leg bag and outpatient Urology eval Continue Empiric abx, await Urine culture Continue Lactulose enema Advance life care plan, patient per family wish per daughter his wishes were to be DNR/DNI and I asked her to sign the appropriate documents stating such, as his legal next of kin (along with his son)- confirmed with them and signed Continue Neuro check Poor prognosis. Discussed with family Labs in am Subjective Date of service: 08/29/19 Principal diagnosis: GI bleed Interval history: This is a 64 year old man resident of a [place] with known hx of DM, HTN, Cirrhosis w/ varices, CVA and CAD who was brought to [facility] ED for evaluation of AMS and abdominal distention. Patient on admission was unable to provide any information, per family he is total care although with preserved mental functio n. He also informs us that the patient has had hemetemesis but no report of nausea or prior vomiting * In the ED the Patient was noted to have creat 15.2, K 7.2, HB 7.[address] abdomen showed obstructive uropathy. He is s/p ferguson catheter. Nephrology was consulted for further evaluation. * Within 48 hrs he was noted to have a sodium of 170s * PER GI * hold blood thinning medications, BMs overnight with continue dark/black stool No hematemesis. * last EGD 2015 showed grade I esophageal varices (not source of bleeding), complex hiatal hernia, and vascular lesion (?prolapsed hernia tissue, ?Gastric varices, ?GIST) in the stomach not amenable to endoscopic tx requiring embolization by IR. * Octreotide -> Nadolol once taking PO; stop Eliquis; trend H/H, INR; no EGD planned * Failed swallow eval 08/25/19, also failed repeat * Was placed on BiPAP and solumedrol due to shortness of breath at 08/28/19 * Initial lab today (08/28/19) with high k and low sodium and high glucose was an error, repeat shows more consistent med. * Plan to repeat swallow eval on Friday, and possible PEG or Hospice, depending on family choice Objective - Constitutional Vitals: Vital Signs - 12hr 08/29/19 08/29/19 08/29/19 04:46 10:00 11:59 Temperature 99.1 F 97.8 F Pulse Rate 76 77 Respiratory 20 22 Rate Blood Pressure 108/62 139/72 O2 Sat by Pulse 97 97 91 Oximetry 08/29/19 12:24 Temperature Pulse Rate 77 Respiratory Rate Blood Pressure 139/77 O2 Sat by Pulse Oximetry General appearance: Present: no acute distress, well-nourished - EENT Eyes: PERRL, EOM intact ENT: hearing intact, clear oral mucosa Ears: bilateral: normal - Neck Neck: supple, normal ROM - Respiratory Respiratory effort: normal Respiratory: bilateral: CTA - Breasts Breasts: normal - Cardiovascular Rhythm: regular Heart Sounds: Present: S1 & S2. Absent: gallop, rub Extremities: pulses intact, No edema, normal color, Full ROM - Gastrointestinal General gastrointestinal: Present: soft, non-tender, non-distended, normal bowel sounds - Genitourinary Male genitourinary: normal - Integumentary Integumentary: clear, warm, dry - Musculoskeletal Musculoskeletal: 1, strength equal bilaterally - Neurologic Neurologic: moves all extremities - Psychiatric Psychiatric: memory intact, appropriate mood/affect, intact judgment & insight - Labs CBC & Chem 7: 08/29/19 05:32 08/29/19 05:32 Labs: Abnormal lab results 08/28/19 08/29/19 08/29/19 Range/Units 17:38 00:03 05:32 WBC 48.4 H* (4.5-11.0) K/mm3 RBC 3.48 L (3.65-5.03) M/mm3 Hgb 9.2 L (11.8-15.2) gm/dl Hct 29.5 L (35.5-45.6) % MCH 26 L (28-32) pg MCHC 31 L (32-34) % RDW 23.4 H (13.2-15.2) % Potassium (3.6-5.0) mmol/L BUN (9-20) mg/dL Glucose (75-100) mg/dL POC Glucose 183 H 186 H (70-105) Calcium (8.4-10.2) mg/dL Phosphorus (2.5-4.5) mg/dL Magnesium (1.7-2.3) mg/dL 08/29/19 08/29/19 08/29/19 Range/Units 05:32 06:02 12:13 WBC (4.5-11.0) K/mm3 RBC (3.65-5.03) M/mm3 Hgb (11.8-15.2) gm/dl Hct (35.5-45.6) % MCH (28-32) pg MCHC (32-34) % RDW (13.2-15.2) % Potassium 3.5 L (3.6-5.0) mmol/L BUN 37 H (9-20) mg/dL Glucose 165 H (75-100) mg/dL POC Glucose 179 H 143 H (70-105) Calcium 7.8 L (8.4-10.2) mg/dL Phosphorus 2.40 L (2.5-4.5) mg/dL Magnesium 2.60 H (1.7-2.3) mg/dL
--- NOTE | 2019-08-29 20:08 | Event Note ---
Date: 08/29/19 [id number]
[2019-08-29] MEDS: HYDROmorphone 1 MG/1 ML INJ IV PRN (22:18)
[2019-08-29] MEDS: cefTRIAXone/NS 1 GM/50 ML 1 GM/50 ML BAG IV SCH (22:27)
[2019-08-30] MEDS: INSULIN LISPRO 100 UNIT/ML SUB-Q SCH ×4 (00:16→18:40)
--- NOTE | 2019-08-30 07:01 | Hem/Onc Progress Note ---
Assessment and Plan 1. Leukocytosis, likely reactive. Predominant neutrophil, anemia. MCV is normal. We will do deficiency investigations. 2. Platelet count is normal. 3. Electrolyte abnormality. 4. History of gastrointestinal bleed. 5. Mention of hepatic encephalopathy. 6. We will observe the trend of white cell count and follow the trend of platelet count. h/o CVA NGT h/o cirrhosis - CT in aug 2019 - no mention of same - Patient Problems (1) Leukocytosis Current Visit: No Status: Acute Qualifiers: Leukocytosis type: leukemoid reaction Qualified Code(s): D72.823 - Leukemoid reaction Subjective Date of service: 08/30/19 Principal diagnosis: leukocytosis Interval history: no bleeding - NGT + Objective - Exam Narrative Exam: Pain - none General appearance - awake - NGT Performance status complete dependence Eyes - no icterus ENT - NGT LNs cervical not palpable Neck - no LN Respiratory Normal Breath sounds - CTA anteriorly CVS S1 S2 + Extremities no edema General GI Soft Rectal deferred male - deferred Skin warm Musculoskeletal h/o CVA Neurologically awake - slurred speech - h/o CVA - Constitutional Vitals: Last Vital Signs Temp 97.7 F 08/29/19 23:59 Pulse 81 08/29/19 23:59 Resp 16 08/29/19 23:59 BP 90/36 08/29/19 23:59 Pulse Ox 96 08/29/19 23:59 - Labs Lab Results: Laboratory Results - last 24 hr 08/29/19 08/29/19 12:13 18:06 POC Glucose 143 H 220 H Medications & Allergies - Medications Allergies/Adverse Reactions: Allergies No Known Allergies Allergy (Unverified 07/11/13 08:29) Home Medications: Home Medications Medication Instructions Recorded Confirmed Last Taken Type Apixaban [Eliquis] 5 mg PO BID 08/22/19 08/22/19 Unknown History Ascorbic Acid [Vitamin C] 500 mg PO Q12H 08/22/19 08/22/19 Unknown History AtorvaSTATin [Lipitor] 40 mg PO QHS 08/22/19 08/22/19 Unknown History Carvedilol [Coreg] 6.25 mg PO BID 08/22/19 08/22/19 Unknown History Dicyclomine [Bentyl] 20 mg PO QID PRN 08/22/19 08/22/19 Unknown History Docusate Sodium [Colace] 100 mg PO BID 08/22/19 08/22/19 Unknown History Flomax 0.4 mg PO QHS 08/22/19 08/22/19 Unknown History Folic Acid [Folvite] 1 mg PO QDAY 08/22/19 08/22/19 Unknown History HYDROcodone/APAP 5-325 [[place] 1 each PO Q6HR PRN 08/22/19 08/22/19 Unknown History 5/325] Ibuprofen [Motrin] 600 mg PO Q8H PRN 08/22/19 08/22/19 Unknown History Lisinopril [Zestril TAB] 10 mg PO QDAY 08/22/19 08/22/19 Unknown History Loperamide [Imodium] 2 mg PO BID PRN 08/22/19 08/22/19 Unknown History Magnesium Hydroxide [Milk of 400 mg PO Q24HR PRN 08/22/19 08/22/19 Unknown History Magnesia] Melatonin 3 mg PO QHS 08/22/19 08/22/19 Unknown History Multivit with Minerals No.55 1 tab PO DAILY 08/22/19 08/22/19 Unknown History Pantoprazole [Protonix] 40 mg PO QDAY 08/22/19 08/22/19 Unknown History Sennosides/Docusate Sodium [Senna 1 each PO DAILY 08/22/19 08/22/19 Unknown History Plus Tablet] diphenhydrAMINE [Benadryl CAP] 25 mg PO Q6HR PRN 08/22/19 08/22/19 Unknown History Active Medications: Generic Name Dose Route Start Last Admin Trade Name Nikunjq PRN Reason Stop Dose Admin Lipase/Protease/Amylase 1 each 08/26/19 12:00 Iván Solano 10,500 Unit FEEDTUBE PRN PRN For Clogged Feeding Tube Dextrose 50 ml 08/28/19 07:56 D50w (25gm) Syringe IV Q30MIN PRN Hypoglycemia Hydromorphone HCl 0.25 mg 08/22/19 21:17 08/29/19 22:18 Dilaudid IV 0.25 mg Q3H PRN Administration Pain, Moderate (4-6) Ceftriaxone Sodium 1 gm in 50 mls @ 100 mls/hr 08/29/19 22:00 08/29/19 22:27 Rocephin/Ns 1 Gm/50 Ml IV 100 mls/hr Q24HR KJ Administration Protocol Insulin Human Lispro 0 unit 08/28/19 08:00 08/30/19 06:57 Humalog SUB-Q 2 unit Q6HR KJ Administration Protocol Lactulose 20 gm 08/27/19 14:00 08/29/19 22:17 Cephulac PO 20 gm Q8HR KJ Administration Lansoprazole 30 mg 08/27/19 10:00 08/29/19 22:17 Prevacid Solutab FEEDTUBE 30 mg BID KJ Administration Nadolol 20 mg 08/27/19 11:00 08/29/19 12:24 Corgard PO 20 mg QDAY KJ Administration Simple Syrup 15 ml 08/26/19 12:00 Simple Syrup FEEDTUBE PRN PRN Hypoglycemia Simple Syrup 30 ml 08/26/19 12:00 Simple Syrup FEEDTUBE PRN PRN Hypoglycemia Sodium Bicarbonate 325 mg 08/26/19 12:00 Sodium Bicarbonate FEEDTUBE PRN PRN For Clogged Feeding Tube Sodium Chloride 10 ml 08/22/19 22:00 08/29/19 22:17 Sodium Chloride Flush Syringe 10 Ml IV 10 ml BID KJ Administration Sodium Chloride 10 ml 08/22/19 21:11 Sodium Chloride Flush Syringe 10 Ml IV PRN PRN LINE FLUSH
--- NOTE | 2019-08-30 08:55 | Consultation ---
REFERRING PHYSICIAN: Dr. Roche. REASON FOR CONSULTATION: Leukocytosis. HISTORY OF PRESENT ILLNESS: I saw the patient, a 64-year-old male in the hospital. He has a history of cerebrovascular accident with left-sided weakness, history of gastrointestinal bleed in the past. Left gastric artery embolization, left BKA. He is a senior care resident, came to the hospital because of lack of urine output. Abdomen distention, altered sensorium. The patient also has history of pacemaker. During this admission, the patient was found to have leukocytosis, which has been progressive. I have been asked to evaluate the patient for same. During this admission, the patient has been seen by ID team, Nephrology team and GI team. He had history of melena. As per the notes, past medical history of cirrhosis, varices, coagulopathy, LAVONNE, obstructive uropathy. At this time, the patient is minimally communicative, says he is doing fine, nods to questions. Moves right side more than left. PAST MEDICAL HISTORY: As above. PAST SURGICAL HISTORY: Appendectomy, left BKA, intestinal gangrene, bowel surgery, spleen surgery. SOCIAL HISTORY: prison resident. No history of smoking. ALLERGIES: None. MEDICATIONS: Includes lipase, ceftriaxone, Dilaudid, lactulose. PHYSICAL EXAMINATION: VITAL SIGNS: Temperature 97, pulse 81, respirations 16, BP 90/36. HEENT: Pallor present, no icterus. NECK: No neck lymph nodes. HEART: S1, S2. LUNGS: Clear to auscultation anteriorly. ABDOMEN: Soft. EXTREMITIES: Left BKA, left-sided weakness. NEUROLOGIC: Awake, follows simple commands of moving extremities. LABORATORY DATA: White cells 48, hemoglobin 9.2, MCV 85, platelet 220, predominant neutrophils. Potassium 3.5, creatinine 1.2, bilirubin 0.5, calcium 7.8. RADIOLOGY: Abdomen and pelvis CT done on 08/22/2019 mentions liver. No significant abnormality. Spleen mentions there is no significant abnormality. Previously seen retroperitoneal lymph nodes are not significantly unchanged. ASSESSMENT AND PLAN: 1. Leukocytosis, likely reactive. Predominant neutrophil, anemia. MCV is normal. We will do deficiency investigations. 2. Platelet count is normal. 3. Electrolyte abnormality. 4. History of gastrointestinal bleed. 5. Mention of hepatic encephalopathy. 6. We will observe the trend of white cell count and follow the trend of platelet count. JOB# [id number] NM/NTS
--- NOTE | 2019-08-30 08:57 | XRay Report ---
ABDOMEN 1 VIEW(S) INDICATION / CLINICAL INFORMATION: dobhoff placement. COMPARISON: 08/27/2019 FINDINGS: TUBES / LINES: The distal tip of the Dobbhoff tube terminates in the fundus of the stomach in the lef t upper quadrant. BOWEL GAS PATTERN: No significant abnormality. FREE AIR / EXTRALUMINAL GAS: None seen. ADDITIONAL FINDINGS: No significant additional findings. IMPRESSION: No significant abnormality. The Dobbhoff tube terminates in the fundus of the stomach. Signer Name: Elieser Parker Jr, MD Signed: 08/30/2019 8:53 AM Workstation Name: [id number]
[2019-08-30] MEDS: HYDROmorphone 1 MG/1 ML INJ IV PRN ×3 (09:45→22:39)
--- NOTE | 2019-08-30 09:47 | Progress Note ---
Assessment and Plan 1. Acute kidney injury: LAVONNE in the setting of obstructive uropathy =/- vasomotor insult. CT abdomen showed obstructive nephropathy. S/p ferguson catheter. Renal function is better. Monitor renal function. Avoid nephrotoxic agents. Meds dosage based on GFR. 2. FEN: Hypernatremia, sodium level has improved. Hyperkalemia, follow K level. Metabolic acidosis, improved. Monitor lytes. 3. GI bleed/hematemesis: H/o Esophageal varices. Followed by GI. 4. H/o Cirrhosis. 5. Hepatic encephalopathy. 6. Acute blood loss Anemia: POA. S/p PRBC. 7. Hyperglycemia. Examination: General appearance: well-developed, appears stated age, no distress, on mittens HEENT: ATNC, IBRAHIMA Neck: trachea midline Respiratory: Clear to Ascultation Heart: S1S2, regular, no murmur Gastrointestinal: normoactive bowel sounds, NT Integumentary: stasis changes R leg : Ferguson catheter Neurologic: able to move extremities, L sided weakness noted, aphasia Musculoskeletal: L BKA Subjective Date of service: 08/30/19 Principal diagnosis: leukocytosis Interval history: Patient was seen and examined at the bedside. Objective - Vital Signs Vital signs: Vital Signs - 12hr 08/29/19 08/30/19 08/30/19 23:59 08:22 09:08 Temperature 97.7 F Pulse Rate 81 49 L Respiratory 16 Rate Blood Pressure 90/36 127/64 O2 Sat by Pulse 96 94 98 Oximetry 08/30/19 09:12 Temperature 98.2 F Pulse Rate 71 Respiratory Rate Blood Pressure O2 Sat by Pulse Oximetry - Lab 08/30/19 13:25 08/30/19 14:08 Most recent lab results Calcium 7.8 mg/dL (8.4-10.2) L 08/29/19 05:32 Phosphorus 2.40 mg/dL (2.5-4.5) L 08/29/19 05:32 Magnesium 2.60 mg/dL (1.7-2.3) H 08/29/19 05:32 Urine Creatinine 70.8 mg/dL (0.1-20.0) H 08/25/19 10:45 Urine Sodium 74 mmol/L 08/25/19 10:45 Medications & Allergies - Medications Allergies/Adverse Reactions: Allergies No Known Allergies Allergy (Unverified 07/11/13 08:29) Home Medications: Home Medications Medication Instructions Recorded Confirmed Last Taken Type Apixaban [Eliquis] 5 mg PO BID 08/22/19 08/22/19 Unknown History Ascorbic Acid [Vitamin C] 500 mg PO Q12H 08/22/19 08/22/19 Unknown History AtorvaSTATin [Lipitor] 40 mg PO QHS 08/22/19 08/22/19 Unknown History Carvedilol [Coreg] 6.25 mg PO BID 08/22/19 08/22/19 Unknown History Dicyclomine [Bentyl] 20 mg PO QID PRN 08/22/19 08/22/19 Unknown History Docusate Sodium [Colace] 100 mg PO BID 08/22/19 08/22/19 Unknown History Flomax 0.4 mg PO QHS 08/22/19 08/22/19 Unknown History Folic Acid [Folvite] 1 mg PO QDAY 08/22/19 08/22/19 Unknown History HYDROcodone/APAP 5-325 [[place] 1 each PO Q6HR PRN 08/22/19 08/22/19 Unknown History 5/325] Ibuprofen [Motrin] 600 mg PO Q8H PRN 08/22/19 08/22/19 Unknown History Lisinopril [Zestril TAB] 10 mg PO QDAY 08/22/19 08/22/19 Unknown History Loperamide [Imodium] 2 mg PO BID PRN 08/22/19 08/22/19 Unknown History Magnesium Hydroxide [Milk of 400 mg PO Q24HR PRN 08/22/19 08/22/19 Unknown History Magnesia] Melatonin 3 mg PO QHS 08/22/19 08/22/19 Unknown History Multivit with Minerals No.55 1 tab PO DAILY 08/22/19 08/22/19 Unknown History Pantoprazole [Protonix] 40 mg PO QDAY 08/22/19 08/22/19 Unknown History Sennosides/Docusate Sodium [Senna 1 each PO DAILY 08/22/19 08/22/19 Unknown History Plus Tablet] diphenhydrAMINE [Benadryl CAP] 25 mg PO Q6HR PRN 08/22/19 08/22/19 Unknown History Active Medications: Generic Name Dose Route Start Last Admin Trade Name Freq PRN Reason Stop Dose Admin Lipase/Protease/Amylase 1 each 08/26/19 12:00 Pancrekiara Solano 10,500 Unit FEEDTUBE PRN PRN For Clogged Feeding Tube Dextrose 50 ml 08/28/19 07:56 D50w (25gm) Syringe IV Q30MIN PRN Hypoglycemia Hydromorphone HCl 0.25 mg 08/22/19 21:17 08/30/19 09:45 Dilaudid IV 0.25 mg Q3H PRN Administration Pain, Moderate (4-6) Ceftriaxone Sodium 1 gm in 50 mls @ 100 mls/hr 08/29/19 22:00 08/29/19 22:27 Rocephin/Ns 1 Gm/50 Ml IV 08/31/19 10:29 100 mls/hr Q24HR KJ Administration Protocol Insulin Human Lispro 0 unit 08/28/19 08:00 08/30/19 06:57 Humalog SUB-Q 2 unit Q6HR KJ Administration Protocol Lactulose 20 gm 08/27/19 14:00 08/29/19 22:17 Cephulac PO 20 gm Q8HR KJ Administration Lansoprazole 30 mg 08/27/19 10:00 08/29/19 22:17 Prevacid Solutab FEEDTUBE 30 mg BID KJ Administration Nadolol 20 mg 08/27/19 11:00 08/29/19 12:24 Corgard PO 20 mg QDAY KJ Administration Simple Syrup 15 ml 08/26/19 12:00 Simple Syrup FEEDTUBE PRN PRN Hypoglycemia Simple Syrup 30 ml 08/26/19 12:00 Simple Syrup FEEDTUBE PRN PRN Hypoglycemia Sodium Bicarbonate 325 mg 08/26/19 12:00 Sodium Bicarbonate FEEDTUBE PRN PRN For Clogged Feeding Tube Sodium Chloride 10 ml 08/22/19 22:00 08/30/19 09:46 Sodium Chloride Flush Syringe 10 Ml IV 10 ml BID KJ Administration Sodium Chloride 10 ml 08/22/19 21:11 Sodium Chloride Flush Syringe 10 Ml IV PRN PRN LINE FLUSH
[2019-08-30] MEDS: NADOLOL 20 MG TAB PO SCH ×2 (10:07→14:52)
[2019-08-30] MEDS: LANSOPRAZOLE 30 MG SOLUTAB FEEDTUBE SCH ×2 (10:07→22:38)
[2019-08-30 10:20] LABS: Hematocrit 28.1 % (35.5-45.6); Hemoglobin 8.9 gm/dl (11.8-15.2); Mean Corpuscular HGB Conc 32 % (32-34); Mean Corpuscular Volume 86 fl (84-94); Red Blood Count 3.28 M/mm3 (3.65-5.03)
[2019-08-30 10:45] LABS: BUN/Creatinine Ratio 40; Blood Urea Nitrogen 36 mg/dL (9-20); Calcium 7.6 mg/dL (8.4-10.2); Hemolysis Index 290
[2019-08-30 10:48] LABS: Iron 15 ug/dL (49-181); Total Iron Binding Capacity 209 mcg/dL (250-450)
[2019-08-30] MEDS: cefTRIAXone/NS 1 GM/50 ML 1 GM/50 ML BAG IV SCH (12:38)
--- NOTE | 2019-08-30 12:55 | Progress Note ---
Assessment and Plan Cultures: Blood culture 08/22/2019 no growth. Urine culture 08/25/2019 no growth. MRSA culture negative. Assessment: 64 y/o male with diabetes, advanced liver cirrhosis with esophageal varices, multiple episodes of GI bleed, complex hiatal hernia, s/p left AKA, CVA and hypertension admitted on 08/22/2019 due to AMS, hematemesis and abdominal distension, now with leukemoid reaction: 1) Leukemoid reaction: likely due to acute GI bleed +/- UTI with acute urinary retention. He had a similar presentation in 2016 with acute GI bleed and leukemoid reaction. UTI per se is mild and wound not cause this leukocytosis. Blood culture negative. CXR x 2 negative. Patient with diarrhea due to lactulose. 2) Hepatic encephalopathy: improving. 3) Complicated mild UTI with urinary retention s/p ferguson: UA with 22 wbc and mod LE. Urine culture no growth. 4) LAVONNE due to urinary retention: improved. 5) Diarrhea: likely from lactulose. No fever. Recommendations: Continue ceftriaxone 2 gm IV q day x 2 more days Overall, poor prognosis D/W Dr. Roche. Daniel Hess MD, FACP [facility] ([facility] C: [phone] O: [phone] F: [phone] Subjective Date of service: 08/30/19 Principal diagnosis: leukocytosis Interval history: More awake, no fever today. Denies any complaints. Poor historian. Objective - Exam Narrative Exam: Physical Exam: Constitutional: Alert, cooperative. No acute distress Head, Ears, Nose: Normocephalic, atraumatic. External ears, nose normal. DHT + Eyes: Conjunctivae/corneas clear. No icterus. No ptosis. Neck: Supple, no meningeal signs Cardiovascular: S1, S2 normal. Respiratory: Good air entry, clear to auscultation bilaterally GI: Soft, non-tender; bowel sounds normal. No peritoneal signs Musculoskeletal: Left AKA well healed. No pedal edema. Skin: No rash or abscess Hem/Lymphatic: No palpable cervical or supraclavicular nodes. No lymphangitis Psych: calm, no agitation Neurological: Awake, more alert, oriented to place and person. - Constitutional Vitals: Vital Signs Temp Pulse Resp BP Pulse Ox 98.2 F 68 16 127/64 98 10/21/19 09:12 08/30/19 11:57 08/29/19 23:59 08/30/19 09:08 08/30/19 09:08 Temperature -Last 24 Hours Temperature 98.2 F Temperature 97.7 F Temperature 97.5 F - Labs CBC & Chem 7: 08/30/19 10:00 08/30/19 10:00 Labs: Abnormal lab results 08/29/19 08/30/19 08/30/19 Range/Units 18:06 00:11 06:37 WBC (4.5-11.0) K/mm3 RBC (3.65-5.03) M/mm3 Hgb (11.8-15.2) gm/dl Hct (35.5-45.6) % MCH (28-32) pg RDW (13.2-15.2) % Potassium (3.6-5.0) mmol/L BUN (9-20) mg/dL Glucose (75-100) mg/dL POC Glucose 220 H 170 H 191 H (70-105) Calcium (8.4-10.2) mg/dL Iron (49-181) ug/dL TIBC (250-450) mcg/dL 08/30/19 08/30/19 08/30/19 Range/Units 10:00 10:00 10:00 WBC 15.7 H (4.5-11.0) K/mm3 RBC 3.28 L (3.65-5.03) M/mm3 Hgb 8.9 L (11.8-15.2) gm/dl Hct 28.1 L (35.5-45.6) % MCH 27 L (28-32) pg RDW 24.0 H (13.2-15.2) % Potassium 5.3 H D (3.6-5.0) mmol/L BUN 36 H (9-20) mg/dL Glucose 108 H (75-100) mg/dL POC Glucose (70-105) Calcium 7.6 L (8.4-10.2) mg/dL Iron 15 L (49-181) ug/dL TIBC 209 L (250-450) mcg/dL
[2019-08-30] MEDS: LACTULOSE 20 GM/30 ML ORAL LIQD PO SCH ×2 (13:02→22:38)
[2019-08-30 13:20] LABS: Anisocytosis 2+; Basophils % (Manual) 0 % (0.0-1.8); Hypochromasia Few; Macrocytosis Few; Myelocytes # (Manual) 0.2 K/mm3; Platelet Estimate Consistent w Auto; Target Cells 1+; Total Cells Counted 100
[2019-08-30 14:34] LABS: Platelet Count TNR K/mm3 (140-440)
--- NOTE | 2019-08-30 14:40 | Progress Note ---
Assessment and Plan Assessment and plan: This is a 64 year old man resident [place] a [place] with known hx of DM, HTN, Cirrhosis w/ varices, CVA and CAD who was brought to [facility] ED for evaluation of AMS and abdominal distention. Patient on admission was unable to provide any information, per family he is total care although with preserved mental function . He also informs us that the patient has had hemetemesis but not report of nausea or prior vomiting * In the ED the Patient was noted to have creat 15.2, K 7.2, HB 7.[address] abdomen showed obstructive uropathy. He is s/p ferguson catheter. Nephrology was consulted for further evaluation. * Within 48 hrs he was noted to have a sodium of 170s * PER GI * hold blood thinning medications, BMs overnight with continue dark/black stool No hematemesis. * last EGD 2015 showed grade I esophageal varices (not source of bleeding), complex hiatal hernia, and vascular lesion (?prolapsed hernia tissue, ?Gastric varices, ?GIST) in the stomach not amenable to endoscopic tx requiring embolization by IR. * Octreotide -> Nadolol once taking PO; stop Eliquis; trend H/H, INR; no EGD planned * Failed swallow eval 08/25/19, also failed repeat * Was placed on BiPAP and solumedrol due to shortness of breath at 08/28/19 * Initial lab today (08/28/19) with high k and low sodium and high glucose was an error, repeat shows more consistent med. * Re-evaluate speech today for swallow eval and discuss with Family about PEG OR HOSPICE Acute blood loss anemia Concerning for UGIB Hepatic encephalopathy-Acute on chronic Sepsis Secondary to acute cystitis Leukocytosis- Leukomoid reaction Severe Hypernatremia- Improved Metabolic Acidosis with Uremia Obstructive Uropathy/urinary retention LAVONNE 2/2 To Obstructive uropathy with possible underlying vasomotor nephropathy- improving Hyperkalemia-resolved Acute Cystitis Hx of Prior CVA Cirrhosis WITH HX OF VARICES Secondary coagulopathy Plan Continue supportive care Obtain CT head to ensure no other pathology Aspiration precautions, as silent aspiration was noted on Video swallow Will discuss with family and see if PEG is appropriate Switch to PO meds VIA NGT Change octeriotide and ppi to po equivalent. Discussed with GI doubt continued GI bleed, will work on transition to PO Hypernatremia, showing marked improvement No further evidence of Bleeding, GI signed off Transfused total PRBC 3 units with good response anemia Continue ferguson, will likely discharge with ferguson to leg bag and outpatient Urology eval Continue Empiric abx, await Urine culture Continue Lactulose enema Advance life care plan, patient per family wish per daughter his wishes were to be DNR/DNI and I asked her to sign the appropriate documents stating such, as his legal next of kin (along with his son)- confirmed with them and signed Continue Neuro check Poor prognosis. Discussed with family Labs in am Hospitalist Physical - Physical exam Narrative exam: General appearance: Present: no acute distress, mental status better. - EENT ENT: hearing intact - Neck Neck: Present: supple, normal ROM - Respiratory Respiratory effort: normal Respiratory: bilateral: CTA - Cardiovascular Rhythm: regular Heart Sounds: Present: S1 & S2 - Extremities Extremity abnormal: other (Left BKA) - Abdominal General gastrointestinal: soft, non-tender, distended, normal bowel sounds - Integumentary Integumentary: Present: warm, dry, noted echymosis right antecubital region - Neurologic Neurologic: other (Awake, Oriented to person, residual left sided weakness from prev stroke) - Constitutional Vitals: Temp Pulse Resp BP Pulse Ox 98.6 F 76 18 107/56 94 08/30/19 12:52 08/30/19 12:52 08/30/19 12:52 08/30/19 12:52 08/30/19 12:52 General appearance: Present: no acute distress, well-nourished Results - Labs CBC & Chem 7: 08/30/19 13:25 08/30/19 10:00 Labs: Laboratory Last Values WBC 15.7 K/mm3 (4.5-11.0) H 08/30/19 10:00 RBC 3.28 M/mm3 (3.65-5.03) L 08/30/19 10:00 Hgb 8.9 gm/dl (11.8-15.2) L 08/30/19 10:00 Hct 28.1 % (35.5-45.6) L 08/30/19 10:00 MCV 86 fl (84-94) 08/30/19 10:00 MCH 27 pg (28-32) L 08/30/19 10:00 MCHC 32 % (32-34) 08/30/19 10:00 RDW 24.0 % (13.2-15.2) H 08/30/19 10:00 Plt Count TNR 08/30/19 10:00 Lymph % (Auto) 6.9 % (13.4-35.0) L 08/23/19 03:46 [place] % (Auto) Shellfish Grower 08/24/19 04:07 Eos % (Auto) 0.0 % (0.0-4.3) 08/23/19 03:46 Baso % (Auto) 0.1 % (0.0-1.8) 08/23/19 03:46 Lymph # 0.8 K/mm3 (1.2-5.4) L 08/23/19 03:46 [place] # 1.4 K/mm3 (0.0-0.8) H 08/23/19 03:46 Eos # 0.0 K/mm3 (0.0-0.4) 08/23/19 03:46 Baso # 0.0 K/mm3 (0.0-0.1) 08/23/19 03:46 Add Manual Diff Complete 08/30/19 10:00 Total Counted 100 08/30/19 10:00 Seg Neutrophils % 81.6 % (40.0-70.0) H 08/23/19 03:46 Seg Neuts % (Manual) 85.0 % (40.0-70.0) H 08/30/19 10:00 Band Neutrophils % 0 % 08/30/19 10:00 Lymphocytes % (Manual) 2.0 % (13.4-35.0) L 08/30/19 10:00 Reactive Lymphs % (Man) 0 % 08/30/19 10:00 Monocytes % (Manual) 10.0 % (0.0-7.3) H 08/30/19 10:00 Eosinophils % (Manual) 2.0 % (0.0-4.3) 08/30/19 10:00 Basophils % (Manual) 0 % (0.0-1.8) 08/30/19 10:00 Metamyelocytes % 0 % 08/30/19 10:00 Myelocytes % 1.0 % 08/30/19 10:00 Promyelocytes % 0 % 08/30/19 10:00 Blast Cells % 0 % 08/30/19 10:00 Nucleated RBC % Not Reportable 08/30/19 10:00 Seg Neutrophils # 10.0 K/mm3 (1.8-7.7) H 08/23/19 03:46 Seg Neutrophils # Man 13.3 K/mm3 (1.8-7.7) H 08/30/19 10:00 Band Neutrophils # 0.0 K/mm3 08/30/19 10:00 Lymphocytes # (Manual) 0.3 K/mm3 (1.2-5.4) L 08/30/19 10:00 Abs React Lymphs (Man) 0.0 K/mm3 08/30/19 10:00 Monocytes # (Manual) 1.6 K/mm3 (0.0-0.8) H 08/30/19 10:00 Eosinophils # (Manual) 0.3 K/mm3 (0.0-0.4) 08/30/19 10:00 Basophils # (Manual) 0.0 K/mm3 (0.0-0.1) 08/30/19 10:00 Metamyelocytes # 0.0 K/mm3 08/30/19 10:00 Myelocytes # 0.2 K/mm3 08/30/19 10:00 Promyelocytes # 0.0 K/mm3 08/30/19 10:00 Blast Cells # 0.0 K/mm3 08/30/19 10:00 WBC Morphology Not Reportable 08/30/19 10:00 Hypersegmented Neuts Not Reportable 08/30/19 10:00 Hyposegmented Neuts Not Reportable 08/30/19 10:00 Hypogranular Neuts Not Reportable 08/30/19 10:00 Smudge Cells Not Reportable 08/30/19 10:00 Toxic Granulation Not Reportable 08/30/19 10:00 Toxic Vacuolation Not Reportable 08/30/19 10:00 Dohle Bodies Not Reportable 08/30/19 10:00 Pelger-Huet Anomaly Not Reportable 08/30/19 10:00 Ramonita Rods Not Reportable 08/30/19 10:00 Platelet Estimate Consistent w auto 08/30/19 10:00 Clumped Platelets Not Reportable 08/30/19 10:00 Plt Clumps, EDTA Not Reportable 08/30/19 10:00 Large Platelets Not Reportable 08/30/19 10:00 Giant Platelets Not Reportable 08/30/19 10:00 Platelet Satelliting Not Reportable 08/30/19 10:00 Plt Morphology Comment Not Reportable 08/30/19 10:00 RBC Morphology Not Reportable 08/30/19 10:00 Dimorphic RBCs Not Reportable 08/30/19 10:00 Polychromasia Not Reportable 08/30/19 10:00 Hypochromasia Few 08/30/19 10:00 Poikilocytosis Not Reportable 08/30/19 10:00 Anisocytosis 2+ 08/30/19 10:00 Microcytosis Not Reportable 08/30/19 10:00 Macrocytosis Few 08/30/19 10:00 Spherocytes Not Reportable 08/30/19 10:00 Pappenheimer Bodies Not Reportable 08/30/19 10:00 Sickle Cells Not Reportable 08/30/19 10:00 Target Cells 1+ 08/30/19 10:00 Tear Drop Cells Not Reportable 08/30/19 10:00 Ovalocytes Not Reportable 08/30/19 10:00 Helmet Cells Not Reportable 08/30/19 10:00 Val[place] Bodies Not Reportable 08/30/19 10:00 [place] Rings Not Reportable 08/30/19 10:00 Enders Cells Not Reportable 08/30/19 10:00 Bite Cells Not Reportable 08/30/19 10:00 Crenated Cell Not Reportable 08/30/19 10:00 Elliptocytes Not Reportable 08/30/19 10:00 Acanthocytes (Spur) Not Reportable 08/30/19 10:00 Rouleaux Not Reportable 08/30/19 10:00 Hemoglobin C Crystals Not Reportable 08/30/19 10:00 Schistocytes Not Reportable 08/30/19 10:00 Malaria parasites Not Reportable 08/30/19 10:00 Noel Bodies Not Reportable 08/30/19 10:00 Hem Pathologist Commnt No 08/30/19 10:00 PT 17.8 Sec. (12.2-14.9) H 08/24/19 04:07 INR 1.51 (0.87-1.13) H 08/24/19 04:07 APTT 31.8 Sec. (24.2-36.6) 08/22/19 12:39 Sodium 144 mmol/L (137-145) 08/30/19 10:00 Potassium 5.3 mmol/L (3.6-5.0) H D 08/30/19 10:00 Chloride 104.5 mmol/L (98-107) 08/30/19 10:00 Carbon Dioxide 27 mmol/L (22-30) 08/30/19 10:00 Anion Gap 18 mmol/L 08/30/19 10:00 BUN 36 mg/dL (9-20) H 08/30/19 10:00 Creatinine 0.9 mg/dL (0.8-1.5) 08/30/19 10:00 Estimated GFR > 60 ml/min 08/30/19 10:00 BUN/Creatinine Ratio 40 % 08/30/19 10:00 Glucose 108 mg/dL (75-100) H 08/30/19 10:00 POC Glucose 172 (70-105) H 08/30/19 13:04 Osmolality 351 Mosm/kg 08/25/19 09:58 Lactic Acid 1.60 mmol/L (0.7-2.0) 08/22/19 23:07 Calcium 7.6 mg/dL (8.4-10.2) L 08/30/19 10:00 Phosphorus 3.10 mg/dL (2.5-4.5) D 08/30/19 10:00 Magnesium 2.60 mg/dL (1.7-2.3) H 08/29/19 05:32 Iron 15 ug/dL (49-181) L 08/30/19 10:00 TIBC 209 mcg/dL (250-450) L 08/30/19 10:00 Ferritin 104.6 ng/mL (13.0-400.0) 08/30/19 10:00 Total Bilirubin 0.50 mg/dL (0.1-1.2) 08/26/19 05:48 Direct Bilirubin < 0.2 mg/dL (0-0.2) 08/22/19 12:39 Indirect Bilirubin 0.1 mg/dL 08/22/19 12:39 AST 73 units/L (5-40) H 08/26/19 05:48 ALT 28 units/L (7-56) 08/26/19 05:48 Alkaline Phosphatase 118 units/L (35-129) 08/26/19 05:48 Ammonia 38.0 umol/L (25-60) 08/24/19 04:07 Troponin T < 0.010 ng/mL (0.00-0.029) 08/22/19 12:39 NT-Pro-B Natriuret Pep 1788 pg/mL (0-900) H 08/22/19 12:39 Total Protein 6.2 g/dL (6.3-8.2) L 08/26/19 05:48 Albumin 2.9 g/dL (3.9-5) L 08/26/19 05:48 Albumin/Globulin Ratio 0.9 % 08/26/19 05:48 Lipase 18 units/L (13-60) 08/22/19 12:39 Vitamin B12 596.1 pg/mL (211-911) 08/30/19 10:00 Folate 18.44 ng/mL (7.3-26.0) 08/30/19 10:00 Urine Color Yellow (Yellow) 08/25/19 10:45 Urine Turbidity Clear (Clear) 08/25/19 10:45 Urine pH 6.0 (5.0-7.0) 08/25/19 10:45 Ur Specific [place] 1.012 (1.003-1.030) 08/25/19 10:45 Urine Protein <15 mg/dl mg/dL (Negative) 08/25/19 10:45 Urine Glucose (UA) Neg mg/dL (Negative) 08/25/19 10:45 Urine Ketones Neg mg/dL (Negative) 08/25/19 10:45 Urine Blood Sm (Negative) 08/25/19 10:45 Urine Nitrite Neg (Negative) 08/25/19 10:45 Urine Bilirubin Neg (Negative) 08/25/19 10:45 Urine Urobilinogen < 2.0 mg/dL (<2.0) 08/25/19 10:45 Ur Leukocyte Esterase Sm (Negative) 08/25/19 10:45 Urine WBC (Auto) 17.0 /HPF (0.0-6.0) H 08/25/19 10:45 Urine RBC (Auto) 7.0 /HPF (0.0-6.0) 08/25/19 10:45 Urine Bacteria (Auto) 1+ /HPF (Negative) 08/25/19 10:45 Urine Mucus Few /HPF 08/25/19 10:45 Urine Osmolality 455 Mosm/kg 08/25/19 10:45 Urine Creatinine 70.8 mg/dL (0.1-20.0) H 08/25/19 10:45 Urine Sodium 74 mmol/L 08/25/19 10:45 Blood Type O POSITIVE 08/22/19 12:39 Antibody Screen Negative 08/22/19 12:39 Crossmatch See Detail 08/22/19 12:39 Active Medications - Current Medications Current Medications: Generic Name Dose Route Start Last Admin Trade Name Freq PRN Reason Stop Dose Admin Lipase/Protease/Amylase 1 each 08/26/19 12:00 Pancrekiara Solano 10,500 Unit FEEDTUBE PRN PRN For Clogged Feeding Tube Dextrose 50 ml 08/28/19 07:56 D50w (25gm) Syringe IV Q30MIN PRN Hypoglycemia Hydromorphone HCl 0.25 mg 08/22/19 21:17 08/30/19 09:45 Dilaudid IV 0.25 mg Q3H PRN Administration Pain, Moderate (4-6) Ceftriaxone Sodium 1 gm in 50 mls @ 100 mls/hr 08/29/19 22:00 08/30/19 12:38 Rocephin/Ns 1 Gm/50 Ml IV 08/31/19 10:29 100 mls/hr Q24HR KJ Administration Protocol Insulin Human Lispro 0 unit 08/28/19 08:00 08/30/19 13:02 Humalog SUB-Q 2 unit Q6HR KJ Administration Protocol Lactulose 20 gm 08/27/19 14:00 08/30/19 13:02 Cephulac PO 20 gm Q8HR KJ Administration Lansoprazole 30 mg 08/27/19 10:00 08/30/19 10:07 Prevacid Solutab FEEDTUBE 30 mg BID KJ Administration Nadolol 20 mg 08/27/19 11:00 08/29/19 12:24 Corgard PO 20 mg QDAY KJ Administration Simple Syrup 15 ml 08/26/19 12:00 Simple Syrup FEEDTUBE PRN PRN Hypoglycemia Simple Syrup 30 ml 08/26/19 12:00 Simple Syrup FEEDTUBE PRN PRN Hypoglycemia Sodium Bicarbonate 325 mg 08/26/19 12:00 Sodium Bicarbonate FEEDTUBE PRN PRN For Clogged Feeding Tube Sodium Chloride 10 ml 08/22/19 22:00 08/30/19 09:46 Sodium Chloride Flush Syringe 10 Ml IV 10 ml BID KJ Administration Sodium Chloride 10 ml 08/22/19 21:11 08/30/19 10:08 Sodium Chloride Flush Syringe 10 Ml IV 10 ml PRN PRN Administration LINE FLUSH Nutrition/Malnutrition Assess - Dietary Evaluation Nutrition/Malnutrition Findings: Nutrition Notes Start: 08/26/19 10:54 Freq: Status: Active Protocol: Document 08/26/19 10:54 RS (Rec: 08/26/19 11:38 RS [id number]) Co-Sign 08/26/19 10:54 LM Nutrition Notes Need for Assessment generated from: MD Order Initial or Follow up Assessment Current Diagnosis Acute Kidney Injury,Diabetes, Hypertension Other Pertinent Diagnosis Cirrosis, hepatic ecephalopathy, Labs/Tests Na: 159 K: 3.4 Pertinent Medications reviewed Height 6 ft Weight 92.986 kg [address] Body Weight (kg) 80.90 BMI 27.8 Weight Status Overweight Subjective/Other Information Consult for TF. Pt currently NPO d/t pt's risk for aspiration caused by a moderate to severe pharyngeal phase swallowing dysfuction per speech therapist report. Burn Absent Trauma Absent GI Symptoms Diarrhea Difficulty In Swallowing Food Allergy No Minimum of two criteria No physical signs of malnutrition #1 Nutrition Diagnosis Inadequate oral intake Etiology dysphagia As Evidenced by Signs and Symptoms NPO status Is patient on ventilator? No Is Patient Ambulatory and/or Out of Bed No REE-([facility]-confined to bed) [phone] Calculation Used for Recommendations [facility] Additional Notes PRO needs (1-1.2g/kg): 92-112g/day Fluid needs: 1mL/kcal Nutrition Intervention Change Diet Order: TF Nutrition Support: Osmolite 1.5 at 60 ml/hr (goal rate) Free water flush of 250ml q4hr (for hypernatremia) Decrease flush to 170mL q4hr once hypernatremia resolves Kcal 2,160 Protein (gm) 90 Fluid (mL) 1,097 Goal #1 TF tolerance Goal #2 diet advancement Anticipated Discharge Needs: unable to determine Follow-Up By: 08/30/19 Additional Comments F/U for TF tolerance/rate and MBS
[2019-08-30] MEDS ORDERED: SODIUM BICARBONATE 325 MG TAB FEEDTUBE PRN (15:28)
[2019-08-30] MEDS ORDERED: LIPASE 10,500/PROTEASE 25,000/AMYLASE 43,750 (UNITS) DR CAP FEEDTUBE PRN (15:28)
[2019-08-30] MEDS ORDERED: SIMPLE SYRUP 15 ML FEEDTUBE PRN ×2 (15:28)
[2019-08-31] MEDS: LACTULOSE 20 GM/30 ML ORAL LIQD PO SCH ×4 (00:33→21:38)
[2019-08-31] MEDS: INSULIN LISPRO 100 UNIT/ML SUB-Q SCH ×4 (00:52→17:53)
[2019-08-31] MEDS: HYDROmorphone 1 MG/1 ML INJ IV PRN ×4 (01:50→21:39)
[2019-08-31 07:06] LABS: Hemoglobin 8.8 gm/dl (11.8-15.2); Mean Corpuscular HGB Conc 31 % (32-34); Mean Corpuscular Volume 86 fl (84-94); Platelet Count 154 K/mm3 (140-440); Red Blood Count 3.27 M/mm3 (3.65-5.03)
[2019-08-31 07:07] LABS: Red Cell Distribution Width 23.7 % (13.2-15.2)
[2019-08-31 07:31] LABS: BUN/Creatinine Ratio 41; Blood Urea Nitrogen 37 mg/dL (9-20); Calcium 7.8 mg/dL (8.4-10.2); Hemolysis Index 1
[2019-08-31] MEDS: LANSOPRAZOLE 30 MG SOLUTAB FEEDTUBE SCH ×2 (09:46→21:38)
[2019-08-31] MEDS ORDERED: cefTRIAXone/NS 1 GM/50 ML 1 GM/50 ML BAG IV SCH (10:00)
--- NOTE | 2019-08-31 12:07 | Progress Note ---
Assessment and Plan 1. Acute kidney injury: LAVONNE in the setting of obstructive uropathy +/- vasomotor insult. CT abdomen showed obstructive nephropathy. S/p ferguson catheter. Renal function is better. Monitor renal function. Avoid nephrotoxic agents. Meds dosage based on GFR. 2. FEN: Hypernatremia, sodium level has improved. Hypokalemia, replete K. Metabolic acidosis, improved. Monitor lytes. 3. GI bleed/hematemesis: H/o Esophageal varices. 4. H/o Cirrhosis. 5. Hepatic encephalopathy. 6. Acute blood loss Anemia: POA. S/p PRBC. 7. Hyperglycemia. Examination: General appearance: well-developed, appears stated age, no distress, NG tube noted, on mittens HEENT: ATNC, IBRAHIMA Neck: trachea midline Respiratory: Clear to Ascultation Heart: S1S2, regular, no murmur Gastrointestinal: normoactive bowel sounds, NT Integumentary: stasis changes R leg : Ferguson catheter Neurologic: able to move extremities, L sided weakness noted, aphasia Musculoskeletal: L BKA Subjective Date of service: 08/31/19 Principal diagnosis: leukocytosis Interval history: Patient was seen and examined at the bedside. Objective - Vital Signs Vital signs: Vital Signs - 12hr 08/31/19 08/31/19 08/31/19 01:50 02:00 04:00 Temperature Pulse Rate [ 74 74 Right Radial] Respiratory 14 Rate Blood Pressure O2 Sat by Pulse 100 100 Oximetry 08/31/19 08/31/19 04:39 08:00 Temperature 98.2 F Pulse Rate [ Right Radial] Respiratory 20 16 Rate Blood Pressure 116/57 O2 Sat by Pulse Oximetry - Lab 08/31/19 Unknown 08/31/19 Unknown Most recent lab results Calcium 7.8 mg/dL (8.4-10.2) L 08/31/19 Unknown Phosphorus 3.10 mg/dL (2.5-4.5) D 08/30/19 10:00 Magnesium 2.60 mg/dL (1.7-2.3) H 08/29/19 05:32 Urine Creatinine 70.8 mg/dL (0.1-20.0) H 08/25/19 10:45 Urine Sodium 74 mmol/L 08/25/19 10:45 Medications & Allergies - Medications Allergies/Adverse Reactions: Allergies No Known Allergies Allergy (Unverified 07/11/13 08:29) Home Medications: Home Medications Medication Instructions Recorded Confirmed Last Taken Type Apixaban [Eliquis] 5 mg PO BID 08/22/19 08/22/19 Unknown History Ascorbic Acid [Vitamin C] 500 mg PO Q12H 08/22/19 08/22/19 Unknown History AtorvaSTATin [Lipitor] 40 mg PO QHS 08/22/19 08/22/19 Unknown History Carvedilol [Coreg] 6.25 mg PO BID 08/22/19 08/22/19 Unknown History Dicyclomine [Bentyl] 20 mg PO QID PRN 08/22/19 08/22/19 Unknown History Docusate Sodium [Colace] 100 mg PO BID 08/22/19 08/22/19 Unknown History Flomax 0.4 mg PO QHS 08/22/19 08/22/19 Unknown History Folic Acid [Folvite] 1 mg PO QDAY 08/22/19 08/22/19 Unknown History HYDROcodone/APAP 5-325 [[place] 1 each PO Q6HR PRN 08/22/19 08/22/19 Unknown History 5/325] Ibuprofen [Motrin] 600 mg PO Q8H PRN 08/22/19 08/22/19 Unknown History Lisinopril [Zestril TAB] 10 mg PO QDAY 08/22/19 08/22/19 Unknown History Loperamide [Imodium] 2 mg PO BID PRN 08/22/19 08/22/19 Unknown History Magnesium Hydroxide [Milk of 400 mg PO Q24HR PRN 08/22/19 08/22/19 Unknown History Magnesia] Melatonin 3 mg PO QHS 08/22/19 08/22/19 Unknown History Multivit with Minerals No.55 1 tab PO DAILY 08/22/19 08/22/19 Unknown History Pantoprazole [Protonix] 40 mg PO QDAY 08/22/19 08/22/19 Unknown History Sennosides/Docusate Sodium [Senna 1 each PO DAILY 08/22/19 08/22/19 Unknown History Plus Tablet] diphenhydrAMINE [Benadryl CAP] 25 mg PO Q6HR PRN 08/22/19 08/22/19 Unknown History Active Medications: Generic Name Dose Route Start Last Admin Trade Name Freq PRN Reason Stop Dose Admin Lipase/Protease/Amylase 1 each 08/26/19 12:00 Pancrekiara Solano 10,500 Unit FEEDTUBE PRN PRN For Clogged Feeding Tube Dextrose 50 ml 08/28/19 07:56 D50w (25gm) Syringe IV Q30MIN PRN Hypoglycemia Hydromorphone HCl 0.25 mg 08/22/19 21:17 08/31/19 09:48 Dilaudid IV 0.25 mg Q3H PRN Administration Pain, Moderate (4-6) Insulin Human Lispro 0 unit 08/28/19 08:00 08/31/19 07:03 Humalog SUB-Q 3 unit Q6HR KJ Administration Protocol Lactulose 20 gm 08/27/19 14:00 08/31/19 07:12 Cephulac PO Not Given Q8HR KJ Lansoprazole 30 mg 08/27/19 10:00 08/31/19 09:46 Prevacid Solutab FEEDTUBE 30 mg BID KJ Administration Nadolol 20 mg 08/27/19 11:00 08/30/19 14:52 Corgard PO 20 mg QDAY KJ Administration Simple Syrup 15 ml 08/26/19 12:00 Simple Syrup FEEDTUBE PRN PRN Hypoglycemia Simple Syrup 30 ml 08/26/19 12:00 Simple Syrup FEEDTUBE PRN PRN Hypoglycemia Sodium Bicarbonate 325 mg 08/26/19 12:00 Sodium Bicarbonate FEEDTUBE PRN PRN For Clogged Feeding Tube Sodium Chloride 10 ml 08/22/19 22:00 08/31/19 09:47 Sodium Chloride Flush Syringe 10 Ml IV 10 ml BID KJ Administration Sodium Chloride 10 ml 08/22/19 21:11 08/30/19 10:08 Sodium Chloride Flush Syringe 10 Ml IV 10 ml PRN PRN Administration LINE FLUSH
--- NOTE | 2019-08-31 13:53 | Progress Note ---
Assessment and Plan Assessment and plan: This is a 64 year old man resident of a [place] with known hx of DM, HTN, Cirrhosis w/ varices, CVA and CAD who was brought to [facility] ED for evaluation of AMS and abdominal distention. Patient on admission was unable to provide any information, per family he is total care although with preserved mental function . He also informs us that the patient has had hemetemesis but not report of nausea or prior vomiting * In the ED the Patient was noted to have creat 15.2, K 7.2, HB 7.[address] abdomen showed obstructive uropathy. He is s/p ferguson catheter. Nephrology was consulted for further evaluation. * Within 48 hrs he was noted to have a sodium of 170s * PER GI * hold blood thinning medications, BMs overnight with continue dark/black stool No hematemesis. * last EGD 2015 showed grade I esophageal varices (not source of bleeding), complex hiatal hernia, and vascular lesion (?prolapsed hernia tissue, ?Gastric varices, ?GIST) in the stomach not amenable to endoscopic tx requiring embolization by IR. * Octreotide -> Nadolol once taking PO; stop Eliquis; trend H/H, INR; no EGD planned * Failed swallow eval 08/25/19, also failed repeat * Was placed on BiPAP and solumedrol due to shortness of breath at 08/28/19 * Initial lab today (08/28/19) with high k and low sodium and high glucose was an error, repeat shows more consistent med. * Re-evaluate speech today for swallow eval and discuss with Family about PEG OR HOSPICE --Acute blood loss anemia Concerning for UGIB --Abnormal swallow eval; reevaluate speech and swallow Consider PEG placement if abnormal Discussed with the family the possibility of PEG placement --Hepatic encephalopathy-Acute on chronic Continue lactulose, patient is more alert and awake today Supportive care. Ammonia levels improved to normal range --Complicated UTI; completed antibiotics Rocephin monitor off antibiotics --Sepsis secondary to complicated UTI; ID following --Leukemoid reaction; probably secondary to UTI and acute GI bleeding Cultures negative to date --Acute kidney injury/ Vasomotor nephropathy/obstructive uropathy/ Secondary to urinary retention ,Improved --Hypernatremia; sodium level significantly improved in the normal range [144] today --History of left AKA; supportive care --History of CVA with residual weakness; Physical therapy supportive care --Coagulopathy; secondary to acidosis Closely monitor for bleeding --Cirrhosis liver. History VARICES; No active GI bleeding closely monitor --DVT prophylaxis; SCDs No pharmacologic anticoagulation in view of coagulopathy Monitor clinically and adjust management as needed --DO NOT RESUSCITATE status --Patient is critically ill with very poor prognosis Recommend hospice, Hospice consult Plan of care reviewed in detail with the patient's son at the bedside Patient's nurse and case management Consults and recommendations noted and appreciated History Interval history: Patient seen and examined medical records reviewed Patient slightly lethargic minimally communicative Secondary to hepatic encephalopathy Patient had abnormal swallow eval Complaints of abdominal pain Likely signs reviewed, patient is in mild distress Hospitalist Physical - Constitutional Vitals: Temp Pulse Resp BP Pulse Ox 97.9 F 73 16 123/61 93 08/31/19 12:13 08/31/19 12:13 08/31/19 12:13 08/31/19 12:13 08/31/19 12:13 General appearance: Present: mild distress, well-nourished - EENT Eyes: Present: PERRL, EOM intact - Neck Neck: Present: supple, normal ROM - Respiratory Respiratory effort: normal Respiratory: bilateral: diminished, rales, negative: rhonchi, wheezing - Cardiovascular Rhythm: regular Heart Sounds: Present: S1 & S2 - Extremities Extremities: no ischemia, No edema - Abdominal General gastrointestinal: soft, non-tender, non-distended, normal bowel sounds - Integumentary Integumentary: Present: clear, warm - Psychiatric Psychiatric: appropriate mood/affect, other (confused at times) - Neurologic Neurologic: moves all extremities Results - Labs CBC & Chem 7: 08/31/19 Unknown 08/31/19 Unknown Labs: Laboratory Last Values WBC 19.1 K/mm3 (4.5-11.0) H 08/31/19 Unknown RBC 3.27 M/mm3 (3.65-5.03) L 08/31/19 Unknown Hgb 8.8 gm/dl (11.8-15.2) L 08/31/19 Unknown Hct 28.0 % (35.5-45.6) L 08/31/19 Unknown MCV 86 fl (84-94) 08/31/19 Unknown MCH 27 pg (28-32) L 08/31/19 Unknown MCHC 31 % (32-34) L 08/31/19 Unknown RDW 23.7 % (13.2-15.2) H 08/31/19 Unknown Plt Count 154 K/mm3 (140-440) 08/31/19 Unknown Lymph % (Auto) 6.9 % (13.4-35.0) L 08/23/19 03:46 [place] % (Auto) Road Machinery Inspector 08/24/19 04:07 Eos % (Auto) 0.0 % (0.0-4.3) 08/23/19 03:46 Baso % (Auto) 0.1 % (0.0-1.8) 08/23/19 03:46 Lymph # 0.8 K/mm3 (1.2-5.4) L 08/23/19 03:46 [place] # 1.4 K/mm3 (0.0-0.8) H 08/23/19 03:46 Eos # 0.0 K/mm3 (0.0-0.4) 08/23/19 03:46 Baso # 0.0 K/mm3 (0.0-0.1) 08/23/19 03:46 Add Manual Diff Complete 08/30/19 10:00 Total Counted 100 08/30/19 10:00 Seg Neutrophils % 81.6 % (40.0-70.0) H 08/23/19 03:46 Seg Neuts % (Manual) 85.0 % (40.0-70.0) H 08/30/19 10:00 Band Neutrophils % 0 % 08/30/19 10:00 Lymphocytes % (Manual) 2.0 % (13.4-35.0) L 08/30/19 10:00 Reactive Lymphs % (Man) 0 % 08/30/19 10:00 Monocytes % (Manual) 10.0 % (0.0-7.3) H 08/30/19 10:00 Eosinophils % (Manual) 2.0 % (0.0-4.3) 08/30/19 10:00 Basophils % (Manual) 0 % (0.0-1.8) 08/30/19 10:00 Metamyelocytes % 0 % 08/30/19 10:00 Myelocytes % 1.0 % 08/30/19 10:00 Promyelocytes % 0 % 08/30/19 10:00 Blast Cells % 0 % 08/30/19 10:00 Nucleated RBC % Not Reportable 08/30/19 10:00 Seg Neutrophils # 10.0 K/mm3 (1.8-7.7) H 08/23/19 03:46 Seg Neutrophils # Man 13.3 K/mm3 (1.8-7.7) H 08/30/19 10:00 Band Neutrophils # 0.0 K/mm3 08/30/19 10:00 Lymphocytes # (Manual) 0.3 K/mm3 (1.2-5.4) L 08/30/19 10:00 Abs React Lymphs (Man) 0.0 K/mm3 08/30/19 10:00 Monocytes # (Manual) 1.6 K/mm3 (0.0-0.8) H 08/30/19 10:00 Eosinophils # (Manual) 0.3 K/mm3 (0.0-0.4) 08/30/19 10:00 Basophils # (Manual) 0.0 K/mm3 (0.0-0.1) 08/30/19 10:00 Metamyelocytes # 0.0 K/mm3 08/30/19 10:00 Myelocytes # 0.2 K/mm3 08/30/19 10:00 Promyelocytes # 0.0 K/mm3 08/30/19 10:00 Blast Cells # 0.0 K/mm3 08/30/19 10:00 WBC Morphology Not Reportable 08/30/19 10:00 Hypersegmented Neuts Not Reportable 08/30/19 10:00 Hyposegmented Neuts Not Reportable 08/30/19 10:00 Hypogranular Neuts Not Reportable 08/30/19 10:00 Smudge Cells Not Reportable 08/30/19 10:00 Toxic Granulation Not Reportable 08/30/19 10:00 Toxic Vacuolation Not Reportable 08/30/19 10:00 Dohle Bodies Not Reportable 08/30/19 10:00 Pelger-Huet Anomaly Not Reportable 08/30/19 10:00 Ramonita Rods Not Reportable 08/30/19 10:00 Platelet Estimate Consistent w auto 08/30/19 10:00 Clumped Platelets Not Reportable 08/30/19 10:00 Plt Clumps, EDTA Not Reportable 08/30/19 10:00 Large Platelets Not Reportable 08/30/19 10:00 Giant Platelets Not Reportable 08/30/19 10:00 Platelet Satelliting Not Reportable 08/30/19 10:00 Plt Morphology Comment Not Reportable 08/30/19 10:00 RBC Morphology Not Reportable 08/30/19 10:00 Dimorphic RBCs Not Reportable 08/30/19 10:00 Polychromasia Not Reportable 08/30/19 10:00 Hypochromasia Few 08/30/19 10:00 Poikilocytosis Not Reportable 08/30/19 10:00 Anisocytosis 2+ 08/30/19 10:00 Microcytosis Not Reportable 08/30/19 10:00 Macrocytosis Few 08/30/19 10:00 Spherocytes Not Reportable 08/30/19 10:00 Pappenheimer Bodies Not Reportable 08/30/19 10:00 Sickle Cells Not Reportable 08/30/19 10:00 Target Cells 1+ 08/30/19 10:00 Tear Drop Cells Not Reportable 08/30/19 10:00 Ovalocytes Not Reportable 08/30/19 10:00 Helmet Cells Not Reportable 08/30/19 10:00 Valle-Gholson Bodies Not Reportable 08/30/19 10:00 Flintstone Rings Not Reportable 08/30/19 10:00 Lopez Cells Not Reportable 08/30/19 10:00 Bite Cells Not Reportable 08/30/19 10:00 Crenated Cell Not Reportable 08/30/19 10:00 Elliptocytes Not Reportable 08/30/19 10:00 Acanthocytes (Spur) Not Reportable 08/30/19 10:00 Rouleaux Not Reportable 08/30/19 10:00 Hemoglobin C Crystals Not Reportable 08/30/19 10:00 Schistocytes Not Reportable 08/30/19 10:00 Malaria parasites Not Reportable 08/30/19 10:00 Noel Bodies Not Reportable 08/30/19 10:00 Hem Pathologist Commnt No 08/30/19 10:00 PT 17.8 Sec. (12.2-14.9) H 08/24/19 04:07 INR 1.51 (0.87-1.13) H 08/24/19 04:07 APTT 31.8 Sec. (24.2-36.6) 08/22/19 12:39 Sodium 144 mmol/L (137-145) 08/31/19 Unknown Potassium 3.5 mmol/L (3.6-5.0) L 08/31/19 Unknown Chloride 105.6 mmol/L (98-107) 08/31/19 Unknown Carbon Dioxide 28 mmol/L (22-30) 08/31/19 Unknown Anion Gap 14 mmol/L 08/31/19 Unknown BUN 37 mg/dL (9-20) H 08/31/19 Unknown Creatinine 0.9 mg/dL (0.8-1.5) 08/31/19 Unknown Estimated GFR > 60 ml/min 08/31/19 Unknown BUN/Creatinine Ratio 41 % 08/31/19 Unknown Glucose 186 mg/dL (75-100) H 08/31/19 Unknown POC Glucose 219 (70-105) H 08/31/19 11:36 Osmolality 351 Mosm/kg 08/25/19 09:58 Lactic Acid 1.60 mmol/L (0.7-2.0) 08/22/19 23:07 Calcium 7.8 mg/dL (8.4-10.2) L 08/31/19 Unknown Phosphorus 3.10 mg/dL (2.5-4.5) D 08/30/19 10:00 Magnesium 2.60 mg/dL (1.7-2.3) H 08/29/19 05:32 Iron 15 ug/dL (49-181) L 08/30/19 10:00 TIBC 209 mcg/dL (250-450) L 08/30/19 10:00 Ferritin 104.6 ng/mL (13.0-400.0) 08/30/19 10:00 Total Bilirubin 0.50 mg/dL (0.1-1.2) 08/26/19 05:48 Direct Bilirubin < 0.2 mg/dL (0-0.2) 08/22/19 12:39 Indirect Bilirubin 0.1 mg/dL 08/22/19 12:39 AST 73 units/L (5-40) H 08/26/19 05:48 ALT 28 units/L (7-56) 08/26/19 05:48 Alkaline Phosphatase 118 units/L (35-129) 08/26/19 05:48 Ammonia 38.0 umol/L (25-60) 08/24/19 04:07 Troponin T < 0.010 ng/mL (0.00-0.029) 08/22/19 12:39 NT-Pro-B Natriuret Pep 1788 pg/mL (0-900) H 08/22/19 12:39 Total Protein 6.2 g/dL (6.3-8.2) L 08/26/19 05:48 Albumin 2.9 g/dL (3.9-5) L 08/26/19 05:48 Albumin/Globulin Ratio 0.9 % 08/26/19 05:48 Lipase 18 units/L (13-60) 08/22/19 12:39 Vitamin B12 596.1 pg/mL (211-911) 08/30/19 10:00 Folate 18.44 ng/mL (7.3-26.0) 08/30/19 10:00 Urine Color Yellow (Yellow) 08/25/19 10:45 Urine Turbidity Clear (Clear) 08/25/19 10:45 Urine pH 6.0 (5.0-7.0) 08/25/19 10:45 Ur Specific [place] 1.012 (1.003-1.030) 08/25/19 10:45 Urine Protein <15 mg/dl mg/dL (Negative) 08/25/19 10:45 Urine Glucose (UA) Neg mg/dL (Negative) 08/25/19 10:45 Urine Ketones Neg mg/dL (Negative) 08/25/19 10:45 Urine Blood Sm (Negative) 08/25/19 10:45 Urine Nitrite Neg (Negative) 08/25/19 10:45 Urine Bilirubin Neg (Negative) 08/25/19 10:45 Urine Urobilinogen < 2.0 mg/dL (<2.0) 08/25/19 10:45 Ur Leukocyte Esterase Sm (Negative) 08/25/19 10:45 Urine WBC (Auto) 17.0 /HPF (0.0-6.0) H 08/25/19 10:45 Urine RBC (Auto) 7.0 /HPF (0.0-6.0) 08/25/19 10:45 Urine Bacteria (Auto) 1+ /HPF (Negative) 08/25/19 10:45 Urine Mucus Few /HPF 08/25/19 10:45 Urine Osmolality 455 Mosm/kg 08/25/19 10:45 Urine Creatinine 70.8 mg/dL (0.1-20.0) H 08/25/19 10:45 Urine Sodium 74 mmol/L 08/25/19 10:45 Blood Type O POSITIVE 08/22/19 12:39 Antibody Screen Negative 08/22/19 12:39 Crossmatch See Detail 08/22/19 12:39 Active Medications - Current Medications Current Medications: Generic Name Dose Route Start Last Admin Trade Name Freq PRN Reason Stop Dose Admin Lipase/Protease/Amylase 1 each 08/26/19 12:00 Pancrekiara Solano 10,500 Unit FEEDTUBE PRN PRN For Clogged Feeding Tube Dextrose 50 ml 08/28/19 07:56 D50w (25gm) Syringe IV Q30MIN PRN Hypoglycemia Hydromorphone HCl 0.25 mg 08/31/19 13:03 Dilaudid IV Q6H PRN Pain , Severe (7-10) Insulin Human Lispro 0 unit 08/28/19 08:00 08/31/19 12:57 Humalog SUB-Q 3 unit Q6HR KJ Administration Protocol Lactulose 20 gm 08/27/19 14:00 08/31/19 13:06 Cephulac PO 20 gm Q8HR KJ Administration Lansoprazole 30 mg 08/27/19 10:00 08/31/19 09:46 Prevacid Solutab FEEDTUBE 30 mg BID KJ Administration Nadolol 20 mg 08/27/19 11:00 08/30/19 14:52 Corgard PO 20 mg QDAY KJ Administration Simple Syrup 15 ml 08/26/19 12:00 Simple Syrup FEEDTUBE PRN PRN Hypoglycemia Simple Syrup 30 ml 08/26/19 12:00 Simple Syrup FEEDTUBE PRN PRN Hypoglycemia Sodium Bicarbonate 325 mg 08/26/19 12:00 Sodium Bicarbonate FEEDTUBE PRN PRN For Clogged Feeding Tube Sodium Chloride 10 ml 08/22/19 22:00 08/31/19 09:47 Sodium Chloride Flush Syringe 10 Ml IV 10 ml BID KJ Administration Sodium Chloride 10 ml 08/22/19 21:11 08/30/19 10:08 Sodium Chloride Flush Syringe 10 Ml IV 10 ml PRN PRN Administration LINE FLUSH Nutrition/Malnutrition Assess - Dietary Evaluation Nutrition/Malnutrition Findings: Nutrition Notes Start: 08/26/19 10:54 Freq: Status: Active Protocol: Document 08/30/19 15:15 OH (Rec: 08/30/19 15:28 OH [id number]) Nutrition Notes Initial or Follow up Reassessment Current Diagnosis Acute Kidney Injury,Diabetes, Hypertension Other Pertinent Diagnosis Cirrosis, hepatic encephalopathy, Current Diet npo Labs/Tests Reviewed Pertinent Medications Reviewed Height 6 ft Weight 83.1 kg [place] Body Weight (kg) 80.90 BMI 24.8 Weight change and time frame Wt to be monitored for accuracy by nursing staff. Wt loss of 9.8 kg noted x4 days may be due to reduction in ascites. Weight Status Appropriate Subjective/Other Information f/u: Pt. sitting up in bed w/ NG tube placed and TF running at goal rate of 60 mL. Mittens on hands to keep pt from pulling out NG tube. Pt. denies knowing if placement of PEG tube imminent. Percent of energy/protein needs met: 100/100% Burn Absent Trauma Absent Minimum of two criteria Yes Muscle Mass Moderate Depletion (severe) Fluid Accumulation Mild (non-severe) Protein-Calorie Malnutrition Severe Is patient on ventilator? No Is Patient Ambulatory and/or Out of Bed No REE-([facility]-confined to bed) [phone] Calculation Used for Recommendations [facility] Additional Notes PRO needs (1-1.2g/kg): 92-112g/day Fluid needs: 1mL/kcal Nutrition Intervention Change Diet Order: TF Nutrition Support: Osmolite 1.5 at 60 ml/hr (goal rate) Water flush of 185 mL q 4 hours Kcal 2,160 Protein (gm) 90 Fluid (mL) 1,097 Goal #1 TF tolerance Goal #2 PEG tube placement Anticipated Discharge Needs: unable to determine Follow-Up By: 09/01/19 Additional Comments F/U for TF tolerance/DOBB JOANN PLACEMENT
--- NOTE | 2019-08-31 16:14 | Progress Note ---
Assessment and Plan Cultures: Blood culture 08/22/2019 no growth. Urine culture 08/25/2019 no growth. MRSA culture negative. Assessment: 64 y/o male with diabetes, advanced liver cirrhosis with esophageal varices, multiple episodes of GI bleed, complex hiatal hernia, s/p left AKA, CVA and hypertension admitted on 08/22/2019 due to AMS, hematemesis and abdominal distension, now with leukemoid reaction: 1) Leukemoid reaction: likely due to acute GI bleed +/- UTI with acute urinary retention with underlying ESLD. He had a similar presentation in 2016 with acute GI bleed and leukemoid reaction. UTI wound not cause this leukocytosis. Blood culture negative. CXR x 2 negative. Patient with diarrhea due to lactulose. 2) ESLD with hepatic encephalopathy 3) Complicated mild UTI with urinary retention s/p ferguson: UA with 22 wbc and mod LE. Urine culture no growth. 4) LAVONNE due to urinary retention: improved. 5) Diarrhea: likely from lactulose. No fever. Recommendations: Completed Ceftriaxone Overall, poor prognosis Daniel Hess MD, FACP [facility] ([facility] C: [phone] O: [phone] F: [phone] Subjective Date of service: 08/31/19 Principal diagnosis: leukocytosis Interval history: No fever. Drowsy, but easily awakened. Has no complaints. Poor historian. Objective - Exam Narrative Exam: Physical Exam: Constitutional: drowsy but easily awakened. No acute distress Head, Ears, Nose: Normocephalic, atraumatic. External ears, nose normal. DHT + Eyes: Conjunctivae/corneas clear. No icterus. No ptosis. Neck: Supple, no meningeal signs Cardiovascular: S1, S2 normal. Respiratory: Good air entry, clear to auscultation bilaterally GI: Soft, non-tender; bowel sounds normal. No peritoneal signs Musculoskeletal: Left AKA well healed. No pedal edema. Skin: No rash or abscess Hem/Lymphatic: No palpable cervical or supraclavicular nodes. No lymphangitis Psych: calm, no agitation Neurological: drowsy but easily awakened. - Constitutional Vitals: Vital Signs Temp Pulse Resp BP Pulse Ox 97.9 F 73 16 123/61 93 08/31/19 12:13 08/31/19 12:13 08/31/19 12:13 08/31/19 12:13 08/31/19 12:13 Temperature -Last 24 Hours Temperature 97.9 F Temperature 98.2 F Temperature 98.6 F Temperature 98.6 F Temperature 98.6 F - Labs CBC & Chem 7: 08/31/19 Unknown 08/31/19 Unknown Labs: Abnormal lab results 08/30/19 08/31/19 08/31/19 Range/Units 18:16 00:15 06:52 WBC (4.5-11.0) K/mm3 RBC (3.65-5.03) M/mm3 Hgb (11.8-15.2) gm/dl Hct (35.5-45.6) % MCH (28-32) pg MCHC (32-34) % RDW (13.2-15.2) % Potassium (3.6-5.0) mmol/L BUN (9-20) mg/dL Glucose (75-100) mg/dL POC Glucose 192 H 201 H 206 H (70-105) Calcium (8.4-10.2) mg/dL 08/31/19 08/31/19 08/31/19 Range/Units 11:36 Unknown Unknown WBC 19.1 H (4.5-11.0) K/mm3 RBC 3.27 L (3.65-5.03) M/mm3 Hgb 8.8 L (11.8-15.2) gm/dl Hct 28.0 L (35.5-45.6) % MCH 27 L (28-32) pg MCHC 31 L (32-34) % RDW 23.7 H (13.2-15.2) % Potassium 3.5 L (3.6-5.0) mmol/L BUN 37 H (9-20) mg/dL Glucose 186 H (75-100) mg/dL POC Glucose 219 H (70-105) Calcium 7.8 L (8.4-10.2) mg/dL
[2019-08-31] MEDS: NADOLOL 20 MG TAB PO SCH (17:54)
[2019-08-31] MEDS ORDERED: POTASSIUM CHLORIDE 20 MEQ PACKET FEEDTUBE ONE (19:58)
[2019-09-01] MEDS: INSULIN LISPRO 100 UNIT/ML SUB-Q SCH ×4 (00:29→19:31)
[2019-09-01] MEDS: LACTULOSE 20 GM/30 ML ORAL LIQD PO SCH ×3 (06:08→22:30)
--- NOTE | 2019-09-01 06:52 | Hem/Onc Progress Note ---
Assessment and Plan 1. Leukocytosis, likely reactive. Predominant neutrophil, anemia. MCV is normal. We will do deficiency investigations. 2. Platelet count is normal. 3. Electrolyte abnormality. 4. History of gastrointestinal bleed. 5. Mention of hepatic encephalopathy. 6. We will observe the trend of white cell count and follow the trend of platelet count. h/o CVA NGT h/o cirrhosis - CT in aug 2019 - no mention of same wbc better s iron low - oral iron trial b12 - folate normal - Patient Problems (1) Leukocytosis Current Visit: No Status: Acute Qualifiers: Leukocytosis type: leukemoid reaction Qualified Code(s): D72.823 - Leukemoid reaction Subjective Date of service: 09/01/19 Principal diagnosis: high wbc Interval history: wants water - is NPO Objective - Exam Narrative Exam: Pain - none General appearance - awake - NGT Performance status complete dependence Eyes - no icterus ENT - NGT LNs cervical not palpable Neck - no LN Respiratory Normal Breath sounds - CTA anteriorly CVS S1 S2 + Extremities no edema General GI Soft Rectal deferred male - deferred Skin warm Musculoskeletal h/o CVA Neurologically awake - slurred speech - h/o CVA - Constitutional Vitals: Last Vital Signs Temp 98.5 F 08/31/19 23:23 Pulse 79 08/31/19 23:23 Resp 20 08/31/19 23:23 BP 129/55 08/31/19 23:23 Pulse Ox 95 08/31/19 23:23 - Labs Lab Results: Laboratory Results - last 24 hr 08/31/19 08/31/19 08/31/19 06:52 11:36 17:39 WBC RBC Hgb Hct MCV MCH MCHC RDW Plt Count Sodium Potassium Chloride Carbon Dioxide Anion Gap BUN Creatinine Estimated GFR BUN/Creatinine Ratio Glucose POC Glucose 206 H 219 H 174 H Calcium 08/31/19 08/31/19 08/31/19 23:21 Unknown Unknown WBC 19.1 H RBC 3.27 L Hgb 8.8 L Hct 28.0 L MCV 86 MCH 27 L MCHC 31 L RDW 23.7 H Plt Count 154 Sodium 144 Potassium 3.5 L Chloride 105.6 Carbon Dioxide 28 Anion Gap 14 BUN 37 H Creatinine 0.9 Estimated GFR > 60 BUN/Creatinine Ratio 41 Glucose 186 H POC Glucose 157 H Calcium 7.8 L 09/01/19 06:19 WBC RBC Hgb Hct MCV MCH MCHC RDW Plt Count Sodium Potassium Chloride Carbon Dioxide Anion Gap BUN Creatinine Estimated GFR BUN/Creatinine Ratio Glucose POC Glucose 204 H Calcium Medications & Allergies - Medications Allergies/Adverse Reactions: Allergies No Known Allergies Allergy (Unverified 07/11/13 08:29) Home Medications: Home Medications Medication Instructions Recorded Confirmed Last Taken Type Apixaban [Eliquis] 5 mg PO BID 08/22/19 08/22/19 Unknown History Ascorbic Acid [Vitamin C] 500 mg PO Q12H 08/22/19 08/22/19 Unknown History AtorvaSTATin [Lipitor] 40 mg PO QHS 08/22/19 08/22/19 Unknown History Carvedilol [Coreg] 6.25 mg PO BID 08/22/19 08/22/19 Unknown History Dicyclomine [Bentyl] 20 mg PO QID PRN 08/22/19 08/22/19 Unknown History Docusate Sodium [Colace] 100 mg PO BID 08/22/19 08/22/19 Unknown History Flomax 0.4 mg PO QHS 08/22/19 08/22/19 Unknown History Folic Acid [Folvite] 1 mg PO QDAY 08/22/19 08/22/19 Unknown History HYDROcodone/APAP 5-325 [[place] 1 each PO Q6HR PRN 08/22/19 08/22/19 Unknown History 5/325] Ibuprofen [Motrin] 600 mg PO Q8H PRN 08/22/19 08/22/19 Unknown History Lisinopril [Zestril TAB] 10 mg PO QDAY 08/22/19 08/22/19 Unknown History Loperamide [Imodium] 2 mg PO BID PRN 08/22/19 08/22/19 Unknown History Magnesium Hydroxide [Milk of 400 mg PO Q24HR PRN 08/22/19 08/22/19 Unknown History Magnesia] Melatonin 3 mg PO QHS 08/22/19 08/22/19 Unknown History Multivit with Minerals No.55 1 tab PO DAILY 08/22/19 08/22/19 Unknown History Pantoprazole [Protonix] 40 mg PO QDAY 08/22/19 08/22/19 Unknown History Sennosides/Docusate Sodium [[place]enna 1 each PO DAILY 08/22/19 08/22/19 Unknown History Plus Tablet] diphenhydrAMINE [Benadryl CAP] 25 mg PO Q6HR PRN 08/22/19 08/22/19 Unknown History Active Medications: Generic Name Dose Route Start Last Admin Trade Name Nikunjq PRN Reason Stop Dose Admin Lipase/Protease/Amylase 1 each 08/26/19 12:00 Iván Solano 10,500 Unit FEEDTUBE PRN PRN For Clogged Feeding Tube Dextrose 50 ml 08/28/19 07:56 D50w (25gm) Syringe IV Q30MIN PRN Hypoglycemia Hydromorphone HCl 0.25 mg 08/31/19 13:03 08/31/19 21:39 Dilaudid IV 0.25 mg Q6H PRN Administration Pain , Severe (7-10) Insulin Human Lispro 0 unit 08/28/19 08:00 09/01/19 00:29 Humalog SUB-Q 2 unit Q6HR KJ Administration Protocol Lactulose 20 gm 08/27/19 14:00 09/01/19 06:08 Cephulac PO 20 gm Q8HR KJ Administration Lansoprazole 30 mg 08/27/19 10:00 08/31/19 21:38 Prevacid Solutab FEEDTUBE 30 mg BID KJ Administration Nadolol 20 mg 08/27/19 11:00 08/31/19 17:54 Corgard PO 20 mg QDAY KJ Administration Simple Syrup 15 ml 08/26/19 12:00 Simple Syrup FEEDTUBE PRN PRN Hypoglycemia Simple Syrup 30 ml 08/26/19 12:00 Simple Syrup FEEDTUBE PRN PRN Hypoglycemia Sodium Bicarbonate 325 mg 08/26/19 12:00 Sodium Bicarbonate FEEDTUBE PRN PRN For Clogged Feeding Tube Sodium Chloride 10 ml 08/22/19 22:00 08/31/19 21:39 Sodium Chloride Flush Syringe 10 Ml IV 10 ml BID KJ Administration Sodium Chloride 10 ml 08/22/19 21:11 08/30/19 10:08 Sodium Chloride Flush Syringe 10 Ml IV 10 ml PRN PRN Administration LINE FLUSH
[2019-09-01] MEDS: NADOLOL 20 MG TAB PO SCH (11:14)
[2019-09-01] MEDS: HYDROmorphone 1 MG/1 ML INJ IV PRN ×2 (11:14→22:31)
[2019-09-01] MEDS: LANSOPRAZOLE 30 MG SOLUTAB FEEDTUBE SCH ×2 (11:16→22:30)
--- NOTE | 2019-09-01 12:41 | Progress Note ---
Assessment and Plan Cultures: Blood culture 08/22/2019 no growth. Urine culture 08/25/2019 no growth. MRSA culture negative. Assessment: 64 y/o male with diabetes, advanced liver cirrhosis with esophageal varices, multiple episodes of GI bleed, complex hiatal hernia, s/p left AKA, CVA and hypertension admitted on 08/22/2019 due to AMS, hematemesis and abdominal distension, now with leukemoid reaction: 1) Leukemoid reaction: likely due to acute GI bleed +/- UTI with acute urinary retention with underlying ESLD. He had a similar presentation in 2016 with acute GI bleed and leukemoid reaction. UTI wound not cause this leukocytosis. Blood culture negative. CXR x 2 negative. Patient with diarrhea due to lactulose. 2) ESLD with hepatic encephalopathy 3) Complicated mild UTI with urinary retention s/p ferguson: UA with 22 wbc and mod LE. Urine culture no growth. 4) LAVONNE due to urinary retention: improved. 5) Diarrhea: likely from lactulose. No fever. Recommendations: Afebrile. Monitor off abx. Recheck CBC in AM. Overall, guarded prognosis Daniel Hess MD, FACP [facility] C: [phone] O: [phone] F: [phone] Subjective Date of service: 09/01/19 Principal diagnosis: high wbc Interval history: No fever. More awake and alert today. States he feels fine. Objective - Exam Narrative Exam: Physical Exam: Constitutional:awake, alert. No acute distress Head, Ears, Nose: Normocephalic, atraumatic. External ears, nose normal. DHT + Eyes: Conjunctivae/corneas clear. No icterus. No ptosis. Neck: Supple, no meningeal signs Cardiovascular: S1, S2 normal. Respiratory: Good air entry, clear to auscultation bilaterally GI: Soft, non-tender; bowel sounds normal. No peritoneal signs Musculoskeletal: Left AKA well healed. No pedal edema. Skin: No rash or abscess Hem/Lymphatic: No palpable cervical or supraclavicular nodes. No lymphangitis Psych: calm, no agitation Neurological: awake, alert - Constitutional Vitals: Vital Signs Temp Pulse Resp BP Pulse Ox 99.2 F 79 20 129/66 98 09/01/19 06:59 08/31/19 23:23 09/01/19 11:14 09/01/19 11:14 09/01/19 11:13 Temperature -Last 24 Hours Temperature 99.2 F Temperature 98.5 F Temperature 98.8 F - Labs CBC & Chem 7: 08/31/19 Unknown 08/31/19 Unknown Labs: Abnormal lab results 08/31/19 08/31/19 09/01/19 Range/Units 17:39 23:21 06:19 POC Glucose 174 H 157 H 204 H (70-105) 09/01/19 Range/Units 11:41 POC Glucose 192 H (70-105)
--- NOTE | 2019-09-01 15:11 | Progress Note ---
Assessment and Plan Assessment and plan: This is a 64 year old man resident of a [place] with known hx of DM, HTN, Cirrhosis w/ varices, CVA and CAD who was brought to [facility] ED for evaluation of AMS and abdominal distention. Patient on admission was unable to provide any information, per family he is total care although with preserved mental function . He also informs us that the patient has had hemetemesis but not report of nausea or prior vomiting * In the ED the Patient was noted to have creat 15.2, K 7.2, HB 7.[address] abdomen showed obstructive uropathy. He is s/p ferguson catheter. Nephrology was consulted for further evaluation. * Within 48 hrs he was noted to have a sodium of 170s * PER GI * hold blood thinning medications, BMs overnight with continue dark/black stool No hematemesis. * last EGD 2015 showed grade I esophageal varices (not source of bleeding), complex hiatal hernia, and vascular lesion (?prolapsed hernia tissue, ?Gastric varices, ?GIST) in the stomach not amenable to endoscopic tx requiring embolization by IR. * Octreotide -> Nadolol once taking PO; stop Eliquis; trend H/H, INR; no EGD planned * Failed swallow eval 08/25/19, also failed repeat * Was placed on BiPAP and solumedrol due to shortness of breath at 08/28/19 * Initial lab today (08/28/19) with high k and low sodium and high glucose was an error, repeat shows more consistent med. * Re-evaluate speech today for swallow eval and discuss with Family about PEG OR HOSPICE --Abnormal swallow eval; Speech Therapist recommend PEG placement Discussed with the daughter, agree for PEG placement re Consult GI for PEG placement --Hepatic encephalopathy-Acute on chronic Continue lactulose, patient is more alert and awake today Supportive care. Ammonia levels improved to normal range --Complicated UTI; completed antibiotics Rocephin monitor off antibiotics --Sepsis secondary to complicated UTI; ID following --Leukemoid reaction; probably secondary to UTI and acute GI bleeding Cultures negative to date --Acute kidney injury/ Vasomotor nephropathy/obstructive uropathy/ Secondary to urinary retention ,Improved --Hypernatremia; sodium level significantly improved in the normal range [144] today --History of left AKA; supportive care --History of CVA with residual weakness; Physical therapy supportive care --Coagulopathy; secondary to acidosis Closely monitor for bleeding --Cirrhosis liver. History VARICES; No active GI bleeding closely monitor --DVT prophylaxis; SCDs No pharmacologic anticoagulation in view of coagulopathy Monitor clinically and adjust management as needed --DO NOT RESUSCITATE status --Patient is critically ill with very poor prognosis Recommend hospice, Hospice consult Plan of care reviewed in detail with the patient's daughter over the phone Agree with PEG placement Consults and recommendations noted and appreciated History Interval history: Patient seen and examined medical records reviewed Patient failed swallow evaluation, recommend PEG placement Patient complains of generalized weakness Confused Vital signs noted Hospitalist Physical - Constitutional Vitals: Temp Pulse Resp BP Pulse Ox 98.8 F 81 16 129/65 95 09/01/19 11:48 09/01/19 11:48 09/01/19 11:48 09/01/19 11:48 09/01/19 11:48 General appearance: Present: mild distress, well-nourished - EENT Eyes: Present: PERRL, EOM intact - Neck Neck: Present: supple, normal ROM - Respiratory Respiratory effort: normal Respiratory: bilateral: diminished, rales, negative: rhonchi, wheezing - Cardiovascular Rhythm: regular Heart Sounds: Present: S1 & S2 - Extremities Extremities: no ischemia Extremity abnormal: edema - Abdominal General gastrointestinal: soft, non-tender, non-distended, normal bowel sounds - Integumentary Integumentary: Present: clear, warm - Psychiatric Psychiatric: appropriate mood/affect, other (confused at times) - Neurologic Neurologic: moves all extremities Results - Labs CBC & Chem 7: 08/31/19 Unknown 08/31/19 Unknown Labs: Laboratory Last Values WBC 19.1 K/mm3 (4.5-11.0) H 08/31/19 Unknown RBC 3.27 M/mm3 (3.65-5.03) L 08/31/19 Unknown Hgb 8.8 gm/dl (11.8-15.2) L 08/31/19 Unknown Hct 28.0 % (35.5-45.6) L 08/31/19 Unknown MCV 86 fl (84-94) 08/31/19 Unknown MCH 27 pg (28-32) L 08/31/19 Unknown MCHC 31 % (32-34) L 08/31/19 Unknown RDW 23.7 % (13.2-15.2) H 08/31/19 Unknown Plt Count 154 K/mm3 (140-440) 08/31/19 Unknown Lymph % (Auto) 6.9 % (13.4-35.0) L 08/23/19 03:46 Charlton % (Auto) Assistant Statistician 08/24/19 04:07 Eos % (Auto) 0.0 % (0.0-4.3) 08/23/19 03:46 Baso % (Auto) 0.1 % (0.0-1.8) 08/23/19 03:46 Lymph # 0.8 K/mm3 (1.2-5.4) L 08/23/19 03:46 Charlton # 1.4 K/mm3 (0.0-0.8) H 08/23/19 03:46 Eos # 0.0 K/mm3 (0.0-0.4) 08/23/19 03:46 Baso # 0.0 K/mm3 (0.0-0.1) 08/23/19 03:46 Add Manual Diff Complete 08/30/19 10:00 Total Counted 100 08/30/19 10:00 Seg Neutrophils % 81.6 % (40.0-70.0) H 08/23/19 03:46 Seg Neuts % (Manual) 85.0 % (40.0-70.0) H 08/30/19 10:00 Band Neutrophils % 0 % 08/30/19 10:00 Lymphocytes % (Manual) 2.0 % (13.4-35.0) L 08/30/19 10:00 Reactive Lymphs % (Man) 0 % 08/30/19 10:00 Monocytes % (Manual) 10.0 % (0.0-7.3) H 08/30/19 10:00 Eosinophils % (Manual) 2.0 % (0.0-4.3) 08/30/19 10:00 Basophils % (Manual) 0 % (0.0-1.8) 08/30/19 10:00 Metamyelocytes % 0 % 08/30/19 10:00 Myelocytes % 1.0 % 08/30/19 10:00 Promyelocytes % 0 % 08/30/19 10:00 Blast Cells % 0 % 08/30/19 10:00 Nucleated RBC % Not Reportable 08/30/19 10:00 Seg Neutrophils # 10.0 K/mm3 (1.8-7.7) H 08/23/19 03:46 Seg Neutrophils # Man 13.3 K/mm3 (1.8-7.7) H 08/30/19 10:00 Band Neutrophils # 0.0 K/mm3 08/30/19 10:00 Lymphocytes # (Manual) 0.3 K/mm3 (1.2-5.4) L 08/30/19 10:00 Abs React Lymphs (Man) 0.0 K/mm3 08/30/19 10:00 Monocytes # (Manual) 1.6 K/mm3 (0.0-0.8) H 08/30/19 10:00 Eosinophils # (Manual) 0.3 K/mm3 (0.0-0.4) 08/30/19 10:00 Basophils # (Manual) 0.0 K/mm3 (0.0-0.1) 08/30/19 10:00 Metamyelocytes # 0.0 K/mm3 08/30/19 10:00 Myelocytes # 0.2 K/mm3 08/30/19 10:00 Promyelocytes # 0.0 K/mm3 08/30/19 10:00 Blast Cells # 0.0 K/mm3 08/30/19 10:00 WBC Morphology Not Reportable 08/30/19 10:00 Hypersegmented Neuts Not Reportable 08/30/19 10:00 Hyposegmented Neuts Not Reportable 08/30/19 10:00 Hypogranular Neuts Not Reportable 08/30/19 10:00 Smudge Cells Not Reportable 08/30/19 10:00 Toxic Granulation Not Reportable 08/30/19 10:00 Toxic Vacuolation Not Reportable 08/30/19 10:00 Dohle Bodies Not Reportable 08/30/19 10:00 Pelger-Huet Anomaly Not Reportable 08/30/19 10:00 Ramonita Rods Not Reportable 08/30/19 10:00 Platelet Estimate Consistent w auto 08/30/19 10:00 Clumped Platelets Not Reportable 08/30/19 10:00 Plt Clumps, EDTA Not Reportable 08/30/19 10:00 Large Platelets Not Reportable 08/30/19 10:00 Giant Platelets Not Reportable 08/30/19 10:00 Platelet Satelliting Not Reportable 08/30/19 10:00 Plt Morphology Comment Not Reportable 08/30/19 10:00 RBC Morphology Not Reportable 08/30/19 10:00 Dimorphic RBCs Not Reportable 08/30/19 10:00 Polychromasia Not Reportable 08/30/19 10:00 Hypochromasia Few 08/30/19 10:00 Poikilocytosis Not Reportable 08/30/19 10:00 Anisocytosis 2+ 08/30/19 10:00 Microcytosis Not Reportable 08/30/19 10:00 Macrocytosis Few 08/30/19 10:00 Spherocytes Not Reportable 08/30/19 10:00 Pappenheimer Bodies Not Reportable 08/30/19 10:00 Sickle Cells Not Reportable 08/30/19 10:00 Target Cells 1+ 08/30/19 10:00 Tear Drop Cells Not Reportable 08/30/19 10:00 Ovalocytes Not Reportable 08/30/19 10:00 Helmet Cells Not Reportable 08/30/19 10:00 [place] Bodies Not Reportable 08/30/19 10:00 Rumford Rings Not Reportable 08/30/19 10:00 Freddy Cells Not Reportable 08/30/19 10:00 Bite Cells Not Reportable 08/30/19 10:00 Crenated Cell Not Reportable 08/30/19 10:00 Elliptocytes Not Reportable 08/30/19 10:00 Acanthocytes (Spur) Not Reportable 08/30/19 10:00 Rouleaux Not Reportable 08/30/19 10:00 Hemoglobin C Crystals Not Reportable 08/30/19 10:00 Schistocytes Not Reportable 08/30/19 10:00 Malaria parasites Not Reportable 08/30/19 10:00 Noel Bodies Not Reportable 08/30/19 10:00 Hem Pathologist Commnt No 08/30/19 10:00 PT 17.8 Sec. (12.2-14.9) H 08/24/19 04:07 INR 1.51 (0.87-1.13) H 08/24/19 04:07 APTT 31.8 Sec. (24.2-36.6) 08/22/19 12:39 Sodium 144 mmol/L (137-145) 08/31/19 Unknown Potassium 3.5 mmol/L (3.6-5.0) L 08/31/19 Unknown Chloride 105.6 mmol/L (98-107) 08/31/19 Unknown Carbon Dioxide 28 mmol/L (22-30) 08/31/19 Unknown Anion Gap 14 mmol/L 08/31/19 Unknown BUN 37 mg/dL (9-20) H 08/31/19 Unknown Creatinine 0.9 mg/dL (0.8-1.5) 08/31/19 Unknown Estimated GFR > 60 ml/min 08/31/19 Unknown BUN/Creatinine Ratio 41 % 08/31/19 Unknown Glucose 186 mg/dL (75-100) H 08/31/19 Unknown POC Glucose 192 (70-105) H 09/01/19 11:41 Osmolality 351 Mosm/kg 08/25/19 09:58 Lactic Acid 1.60 mmol/L (0.7-2.0) 08/22/19 23:07 Calcium 7.8 mg/dL (8.4-10.2) L 08/31/19 Unknown Phosphorus 3.10 mg/dL (2.5-4.5) D 08/30/19 10:00 Magnesium 2.60 mg/dL (1.7-2.3) H 08/29/19 05:32 Iron 15 ug/dL (49-181) L 08/30/19 10:00 TIBC 209 mcg/dL (250-450) L 08/30/19 10:00 Ferritin 104.6 ng/mL (13.0-400.0) 08/30/19 10:00 Total Bilirubin 0.50 mg/dL (0.1-1.2) 08/26/19 05:48 Direct Bilirubin < 0.2 mg/dL (0-0.2) 08/22/19 12:39 Indirect Bilirubin 0.1 mg/dL 08/22/19 12:39 AST 73 units/L (5-40) H 08/26/19 05:48 ALT 28 units/L (7-56) 08/26/19 05:48 Alkaline Phosphatase 118 units/L (35-129) 08/26/19 05:48 Ammonia 38.0 umol/L (25-60) 08/24/19 04:07 Troponin T < 0.010 ng/mL (0.00-0.029) 08/22/19 12:39 NT-Pro-B Natriuret Pep 1788 pg/mL (0-900) H 08/22/19 12:39 Total Protein 6.2 g/dL (6.3-8.2) L 08/26/19 05:48 Albumin 2.9 g/dL (3.9-5) L 08/26/19 05:48 Albumin/Globulin Ratio 0.9 % 08/26/19 05:48 Lipase 18 units/L (13-60) 08/22/19 12:39 Vitamin B12 596.1 pg/mL (211-911) 08/30/19 10:00 Folate 18.44 ng/mL (7.3-26.0) 08/30/19 10:00 Urine Color Yellow (Yellow) 08/25/19 10:45 Urine Turbidity Clear (Clear) 08/25/19 10:45 Urine pH 6.0 (5.0-7.0) 08/25/19 10:45 Ur Specific Kiln 1.012 (1.003-1.030) 08/25/19 10:45 Urine Protein <15 mg/dl mg/dL (Negative) 08/25/19 10:45 Urine Glucose (UA) Neg mg/dL (Negative) 08/25/19 10:45 Urine Ketones Neg mg/dL (Negative) 08/25/19 10:45 Urine Blood Sm (Negative) 08/25/19 10:45 Urine Nitrite Neg (Negative) 08/25/19 10:45 Urine Bilirubin Neg (Negative) 08/25/19 10:45 Urine Urobilinogen < 2.0 mg/dL (<2.0) 08/25/19 10:45 Ur Leukocyte Esterase Sm (Negative) 08/25/19 10:45 Urine WBC (Auto) 17.0 /HPF (0.0-6.0) H 08/25/19 10:45 Urine RBC (Auto) 7.0 /HPF (0.0-6.0) 08/25/19 10:45 Urine Bacteria (Auto) 1+ /HPF (Negative) 08/25/19 10:45 Urine Mucus Few /HPF 08/25/19 10:45 Urine Osmolality 455 Mosm/kg 08/25/19 10:45 Urine Creatinine 70.8 mg/dL (0.1-20.0) H 08/25/19 10:45 Urine Sodium 74 mmol/L 08/25/19 10:45 Blood Type O POSITIVE 08/22/19 12:39 Antibody Screen Negative 08/22/19 12:39 Crossmatch See Detail 08/22/19 12:39 Active Medications - Current Medications Current Medications: Generic Name Dose Route Start Last Admin Trade Name Freq PRN Reason Stop Dose Admin Lipase/Protease/Amylase 1 each 08/26/19 12:00 Pancreaze 10,500 Unit FEEDTUBE PRN PRN For Clogged Feeding Tube Dextrose 50 ml 08/28/19 07:56 D50w (25gm) Syringe IV Q30MIN PRN Hypoglycemia Hydromorphone HCl 0.25 mg 08/31/19 13:03 08/31/19 21:39 Dilaudid IV 0.25 mg Q6H PRN Administration Pain , Severe (7-10) Insulin Human Lispro 0 unit 08/28/19 08:00 09/01/19 14:27 Humalog SUB-Q 2 unit Q6HR KJ Administration Protocol Lactulose 20 gm 08/27/19 14:00 09/01/19 14:27 Cephulac PO 20 gm Q8HR KJ Administration Lansoprazole 30 mg 08/27/19 10:00 09/01/19 11:16 Prevacid Solutab FEEDTUBE 30 mg BID KJ Administration Nadolol 20 mg 08/27/19 11:00 09/01/19 11:14 Corgard PO 20 mg QDAY KJ Administration Simple Syrup 15 ml 08/26/19 12:00 Simple Syrup FEEDTUBE PRN PRN Hypoglycemia Simple Syrup 30 ml 08/26/19 12:00 Simple Syrup FEEDTUBE PRN PRN Hypoglycemia Sodium Bicarbonate 325 mg 08/26/19 12:00 Sodium Bicarbonate FEEDTUBE PRN PRN For Clogged Feeding Tube Sodium Chloride 10 ml 08/22/19 22:00 09/01/19 11:16 Sodium Chloride Flush Syringe 10 Ml IV 10 ml BID KJ Administration Sodium Chloride 10 ml 08/22/19 21:11 08/30/19 10:08 Sodium Chloride Flush Syringe 10 Ml IV 10 ml PRN PRN Administration LINE FLUSH Nutrition/Malnutrition Assess - Dietary Evaluation Nutrition/Malnutrition Findings: Nutrition Notes Start: 08/26/19 10:54 Freq: Status: Active Protocol: Document 09/01/19 12:55 RM (Rec: 09/01/19 12:58 RM [id number]) Nutrition Notes Initial or Follow up Reassessment Current Diagnosis Acute Kidney Injury,Diabetes, Hypertension Other Pertinent Diagnosis Cirrhosis, hepatic encephalopathy Current Diet Osmolite 1.5 at 60 ml/hr Labs/Tests Reviewed Pertinent Medications Reviewed Height 6 ft Weight 91.6 kg [place] Body Weight (kg) 80.90 BMI 27.3 Weight change and time frame Current wt obtained from [facility]. Subjective/Other Information ST re-evaluated pt. 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 Observed Osmolite 1.5 infusing at goal rate via NG tube. Per nurse pt is tolerating TF. Noted slight temporal and moderate orbital wasting. Per MD pt has mild ascites. Percent of energy/protein needs met: 100/100% Burn Absent Trauma Absent Minimum of two criteria Yes Body Fat Depletion Moderate depletion (severe) Muscle Mass Mild Depletion (non-severe) Fluid Accumulation Mild (non-severe) #2 Nutrition Diagnosis Malnutrition Etiology cirrhosis As Evidenced by Signs and Symptoms temporal and orbital wasting, MD statement that pt has mild ascites #1 Nutrition Diagnosis Inadequate oral intake Diagnosis Progress(for reassessment Continues documentation) Is patient on ventilator? No Is Patient Ambulatory and/or Out of Bed No REE-([facility]-confined to bed) 0170.093 Calculation Used for Recommendations [facility] Additional Notes PRO needs (1-1.2g/kg): 92-112g/day Fluid needs: 1mL/kcal Nutrition Intervention Nutrition Support: Osmolite 1.5 at 60 ml/hr (goal rate) Water flush of 185 mL q 4 hours Kcal 2,160 Protein (gm) 90 Fluid (mL) 1,097 Goal #1 TF tolerance Goal #2 Continue to meet at least 75% of calorie and protein needs via TF Anticipated Discharge Needs: TF Follow-Up By: 09/03/19 Additional Comments Follow for POC
--- NOTE | 2019-09-01 17:59 | Progress Note ---
Assessment and Plan 1. Acute kidney injury: LAVONNE in the setting of obstructive uropathy +/- vasomotor insult. CT abdomen showed obstructive nephropathy. S/p ferguson catheter. Renal function is better. Monitor renal function. Avoid nephrotoxic agents. Meds dosage based on GFR. 2. FEN: Hypernatremia, sodium level has improved. Hypokalemia, monitor and replete K. Metabolic acidosis, improved. Monitor lytes. 3. GI bleed/hematemesis: H/o Esophageal varices. 4. H/o Cirrhosis. 5. Hepatic encephalopathy. 6. Acute blood loss Anemia: POA. S/p PRBC. 7. Hyperglycemia. Examination: General appearance: well-developed, appears stated age, no distress, NG tube noted, on mittens HEENT: ATNC, IBRAHIMA Neck: trachea midline Respiratory: Clear to Ascultation Heart: S1S2, regular, no murmur Gastrointestinal: normoactive bowel sounds, NT Integumentary: stasis changes R leg : Ferguson catheter Neurologic: able to move extremities, L sided weakness noted, aphasia Musculoskeletal: L BKA Subjective Date of service: 09/01/19 Principal diagnosis: high wbc Interval history: Patient was seen and examined at the bedside. Objective - Vital Signs Vital signs: Vital Signs - 12hr 09/01/19 09/01/19 09/01/19 06:59 11:13 11:14 Temperature 99.2 F Pulse Rate Respiratory 18 20 Rate Blood Pressure 129/66 129/66 O2 Sat by Pulse 98 Oximetry 09/01/19 09/01/19 11:48 16:51 Temperature 98.8 F 97.9 F Pulse Rate 81 87 Respiratory 16 16 Rate Blood Pressure 129/65 131/69 O2 Sat by Pulse 95 94 Oximetry - Lab 08/31/19 Unknown 08/31/19 Unknown Most recent lab results Calcium 7.8 mg/dL (8.4-10.2) L 08/31/19 Unknown Phosphorus 3.10 mg/dL (2.5-4.5) D 08/30/19 10:00 Magnesium 2.60 mg/dL (1.7-2.3) H 08/29/19 05:32 Urine Creatinine 70.8 mg/dL (0.1-20.0) H 08/25/19 10:45 Urine Sodium 74 mmol/L 08/25/19 10:45 Medications & Allergies - Medications Allergies/Adverse Reactions: Allergies No Known Allergies Allergy (Unverified 07/11/13 08:29) Home Medications: Home Medications Medication Instructions Recorded Confirmed Last Taken Type Apixaban [Eliquis] 5 mg PO BID 08/22/19 08/22/19 Unknown History Ascorbic Acid [Vitamin C] 500 mg PO Q12H 08/22/19 08/22/19 Unknown History AtorvaSTATin [Lipitor] 40 mg PO QHS 08/22/19 08/22/19 Unknown History Carvedilol [Coreg] 6.25 mg PO BID 08/22/19 08/22/19 Unknown History Dicyclomine [Bentyl] 20 mg PO QID PRN 08/22/19 08/22/19 Unknown History Docusate Sodium [Colace] 100 mg PO BID 08/22/19 08/22/19 Unknown History Flomax 0.4 mg PO QHS 08/22/19 08/22/19 Unknown History Folic Acid [Folvite] 1 mg PO QDAY 08/22/19 08/22/19 Unknown History HYDROcodone/APAP 5-325 [Gaffney 1 each PO Q6HR PRN 08/22/19 08/22/19 Unknown History 5/325] Ibuprofen [Motrin] 600 mg PO Q8H PRN 08/22/19 08/22/19 Unknown History Lisinopril [Zestril TAB] 10 mg PO QDAY 08/22/19 08/22/19 Unknown History Loperamide [Imodium] 2 mg PO BID PRN 08/22/19 08/22/19 Unknown History Magnesium Hydroxide [Milk of 400 mg PO Q24HR PRN 08/22/19 08/22/19 Unknown History Magnesia] Melatonin 3 mg PO QHS 08/22/19 08/22/19 Unknown History Multivit with Minerals No.55 1 tab PO DAILY 08/22/19 08/22/19 Unknown History Pantoprazole [Protonix] 40 mg PO QDAY 08/22/19 08/22/19 Unknown History Sennosides/Docusate Sodium [Senna 1 each PO DAILY 08/22/19 08/22/19 Unknown History Plus Tablet] diphenhydrAMINE [Benadryl CAP] 25 mg PO Q6HR PRN 08/22/19 08/22/19 Unknown History Active Medications: Generic Name Dose Route Start Last Admin Trade Name Haseeb PRN Reason Stop Dose Admin Lipase/Protease/Amylase 1 each 08/26/19 12:00 Iván Solano 10,500 Unit FEEDTUBE PRN PRN For Clogged Feeding Tube Dextrose 50 ml 08/28/19 07:56 D50w (25gm) Syringe IV Q30MIN PRN Hypoglycemia Hydromorphone HCl 0.25 mg 08/31/19 13:03 08/31/19 21:39 Dilaudid IV 0.25 mg Q6H PRN Administration Pain , Severe (7-10) Insulin Human Lispro 0 unit 08/28/19 08:00 09/01/19 14:27 Humalog SUB-Q 2 unit Q6HR KJ Administration Protocol Lactulose 20 gm 08/27/19 14:00 09/01/19 14:27 Cephulac PO 20 gm Q8HR KJ Administration Lansoprazole 30 mg 08/27/19 10:00 09/01/19 11:16 Prevacid Solutab FEEDTUBE 30 mg BID KJ Administration Nadolol 20 mg 08/27/19 11:00 09/01/19 11:14 Corgard PO 20 mg QDAY KJ Administration Simple Syrup 15 ml 08/26/19 12:00 Simple Syrup FEEDTUBE PRN PRN Hypoglycemia Simple Syrup 30 ml 08/26/19 12:00 Simple Syrup FEEDTUBE PRN PRN Hypoglycemia Sodium Bicarbonate 325 mg 08/26/19 12:00 Sodium Bicarbonate FEEDTUBE PRN PRN For Clogged Feeding Tube Sodium Chloride 10 ml 08/22/19 22:00 09/01/19 11:16 Sodium Chloride Flush Syringe 10 Ml IV 10 ml BID KJ Administration Sodium Chloride 10 ml 08/22/19 21:11 08/30/19 10:08 Sodium Chloride Flush Syringe 10 Ml IV 10 ml PRN PRN Administration LINE FLUSH
[2019-09-02] MEDS: INSULIN LISPRO 100 UNIT/ML SUB-Q SCH ×4 (00:12→18:46)
[2019-09-02 06:25] LABS: Basophils # (Auto) 0.1 K/mm3 (0.0-0.1); Basophils % (Auto) 0.3 % (0.0-1.8); Eosinophils # (Auto) 0.6 K/mm3 (0.0-0.4); Eosinophils % (Auto) 3.3 % (0.0-4.3); Hematocrit 28.1 % (35.5-45.6); Hemoglobin 8.9 gm/dl (11.8-15.2); Lymphocytes # (Auto) 1.4 K/mm3 (1.2-5.4); Lymphocytes % (Auto) 7.9 % (13.4-35.0); Mean Corpuscular HGB Conc 32 % (32-34); Mean Corpuscular Volume 86 fl (84-94); Monocytes # (Auto) 2.2 K/mm3 (0.0-0.8); Monocytes % (Auto) 12.6 % (0.0-7.3); Platelet Count 208 K/mm3 (140-440); Red Blood Count 3.27 M/mm3 (3.65-5.03)
--- NOTE | 2019-09-02 06:28 | Hem/Onc Progress Note ---
Assessment and Plan 1. Leukocytosis, likely reactive. Predominant neutrophil, anemia. MCV is normal. We will do deficiency investigations. 2. Platelet count is normal. 3. Electrolyte abnormality. 4. History of gastrointestinal bleed. 5. Mention of hepatic encephalopathy. 6. We will observe the trend of white cell count and follow the trend of platelet count. h/o CVA NGT h/o cirrhosis - CT in aug 2019 - no mention of same wbc better s iron low - oral iron trial b12 - folate normal wbc 17 - follow - Patient Problems (1) Leukocytosis Current Visit: No Status: Acute Qualifiers: Leukocytosis type: leukemoid reaction Qualified Code(s): D72.823 - Leukemoid reaction Subjective Date of service: 09/02/19 Principal diagnosis: high wbc Interval history: no bleeding - wants to drink water has NGT Objective - Exam Narrative Exam: Pain - none General appearance - awake - NGT Performance status complete dependence Eyes - no icterus ENT - NGT LNs cervical not palpable Neck - no LN Respiratory Normal Breath sounds - CTA anteriorly CVS S1 S2 + Extremities no edema General GI Soft Rectal deferred male - deferred Skin warm Musculoskeletal h/o CVA Neurologically awake - slurred speech - h/o CVA - Constitutional Vitals: Last Vital Signs Temp 98.7 F 09/02/19 05:02 Pulse 80 09/02/19 05:02 Resp 16 09/02/19 05:02 BP 149/82 09/02/19 05:02 Pulse Ox 97 09/02/19 05:02 - Labs Lab Results: Laboratory Results - last 24 hr 09/01/19 09/01/19 09/01/19 11:41 16:26 23:43 [place] % (Auto) Eos % (Auto) [place] # Eos # Baso # Seg Neutrophils % Seg Neutrophils # POC Glucose 192 H 203 H 129 H 09/02/19 09/02/19 05:35 06:00 [place] % (Auto) 12.6 H Eos % (Auto) 3.3 [place] # 2.2 H Eos # 0.6 H Baso # 0.1 Seg Neutrophils % 75.9 H Seg Neutrophils # 13.2 H POC Glucose 131 H Medications & Allergies - Medications Allergies/Adverse Reactions: Allergies No Known Allergies Allergy (Unverified 07/11/13 08:29) Home Medications: Home Medications Medication Instructions Recorded Confirmed Last Taken Type Apixaban [Eliquis] 5 mg PO BID 08/22/19 08/22/19 Unknown History Ascorbic Acid [Vitamin C] 500 mg PO Q12H 08/22/19 08/22/19 Unknown History AtorvaSTATin [Lipitor] 40 mg PO QHS 08/22/19 08/22/19 Unknown History Carvedilol [Coreg] 6.25 mg PO BID 08/22/19 08/22/19 Unknown History Dicyclomine [Bentyl] 20 mg PO QID PRN 08/22/19 08/22/19 Unknown History Docusate Sodium [Colace] 100 mg PO BID 08/22/19 08/22/19 Unknown History Flomax 0.4 mg PO QHS 08/22/19 08/22/19 Unknown History Folic Acid [Folvite] 1 mg PO QDAY 08/22/19 08/22/19 Unknown History HYDROcodone/APAP 5-325 [[place] 1 each PO Q6HR PRN 08/22/19 08/22/19 Unknown History 5/325] Ibuprofen [Motrin] 600 mg PO Q8H PRN 08/22/19 08/22/19 Unknown History Lisinopril [Zestril TAB] 10 mg PO QDAY 08/22/19 08/22/19 Unknown History Loperamide [Imodium] 2 mg PO BID PRN 08/22/19 08/22/19 Unknown History Magnesium Hydroxide [Milk of 400 mg PO Q24HR PRN 08/22/19 08/22/19 Unknown History Magnesia] Melatonin 3 mg PO QHS 08/22/19 08/22/19 Unknown History Multivit with Minerals No.55 1 tab PO DAILY 08/22/19 08/22/19 Unknown History Pantoprazole [Protonix] 40 mg PO QDAY 08/22/19 08/22/19 Unknown History Sennosides/Docusate Sodium [Senna 1 each PO DAILY 08/22/19 08/22/19 Unknown History Plus Tablet] diphenhydrAMINE [Benadryl CAP] 25 mg PO Q6HR PRN 08/22/19 08/22/19 Unknown History Active Medications: Generic Name Dose Route Start Last Admin Trade Name Freq PRN Reason Stop Dose Admin Lipase/Protease/Amylase 1 each 08/26/19 12:00 Pancrekiara Solano 10,500 Unit FEEDTUBE PRN PRN For Clogged Feeding Tube Dextrose 50 ml 08/28/19 07:56 D50w (25gm) Syringe IV Q30MIN PRN Hypoglycemia Ferrous Sulfate 308 mg 09/02/19 10:00 Ferrous Sulfate PO QDAY KJ Hydromorphone HCl 0.25 mg 08/31/19 13:03 09/01/19 22:31 Dilaudid IV 0.25 mg Q6H PRN Administration Pain , Severe (7-10) Insulin Human Lispro 0 unit 08/28/19 08:00 09/02/19 00:12 Humalog SUB-Q Not Given Q6HR [facility] Protocol Lactulose 20 gm 08/27/19 14:00 09/01/19 22:30 Cephulac PO 20 gm Q8HR KJ Administration Lansoprazole 30 mg 08/27/19 10:00 09/01/19 22:30 Prevacid Solutab FEEDTUBE 30 mg BID KJ Administration Nadolol 20 mg 08/27/19 11:00 09/01/19 11:14 Corgard PO 20 mg QDAY KJ Administration Simple Syrup 15 ml 08/26/19 12:00 Simple Syrup FEEDTUBE PRN PRN Hypoglycemia Simple Syrup 30 ml 08/26/19 12:00 Simple Syrup FEEDTUBE PRN PRN Hypoglycemia Sodium Bicarbonate 325 mg 08/26/19 12:00 Sodium Bicarbonate FEEDTUBE PRN PRN For Clogged Feeding Tube Sodium Chloride 10 ml 08/22/19 22:00 09/01/19 22:31 Sodium Chloride Flush Syringe 10 Ml IV 10 ml BID KJ Administration Sodium Chloride 10 ml 08/22/19 21:11 08/30/19 10:08 Sodium Chloride Flush Syringe 10 Ml IV 10 ml PRN PRN Administration LINE FLUSH
[2019-09-02 06:29] LABS: Red Cell Distribution Width 24.3 % (13.2-15.2)
[2019-09-02] MEDS: LACTULOSE 20 GM/30 ML ORAL LIQD PO SCH ×3 (06:38→22:45)
[2019-09-02 06:52] LABS: BUN/Creatinine Ratio 33; Blood Urea Nitrogen 23 mg/dL (9-20); Calcium 8.1 mg/dL (8.4-10.2); Hemolysis Index 0
--- NOTE | 2019-09-02 10:08 | Progress Note ---
Assessment and Plan 1. Acute kidney injury: LAVONNE in the setting of obstructive uropathy +/- vasomotor insult. CT abdomen showed obstructive nephropathy. S/p ferguson catheter. Renal function is better. Monitor renal function. Avoid nephrotoxic agents. Meds dosage based on GFR. 2. FEN: Hypernatremia, restarted on D5W. Hypokalemia, monitor and replete K. Metabolic acidosis, improved. Monitor lytes. 3. GI bleed/hematemesis: H/o Esophageal varices. 4. H/o Cirrhosis. 5. Hepatic encephalopathy. 6. Acute blood loss Anemia: POA. S/p PRBC. 7. Dysphagia: PEG placement today. Examination: General appearance: well-developed, appears stated age, no distress, NG tube noted, on mittens HEENT: ATNC, IBRAHIMA Neck: trachea midline Respiratory: Clear to Ascultation Heart: S1S2, regular, no murmur Gastrointestinal: normoactive bowel sounds, NT Integumentary: stasis changes R leg : Ferguson catheter Neurologic: able to move extremities, L sided weakness noted, aphasia Musculoskeletal: L BKA Subjective Date of service: 09/02/19 Principal diagnosis: high wbc Interval history: Patient was seen and examined at the bedside. Objective - Vital Signs Vital signs: Vital Signs - 12hr 09/01/19 09/02/19 23:37 05:02 Temperature 99.2 F 98.7 F Pulse Rate 79 80 Respiratory 16 16 Rate Blood Pressure 145/68 149/82 O2 Sat by Pulse 99 97 Oximetry - Lab 09/02/19 06:00 09/02/19 06:00 Most recent lab results Calcium 8.1 mg/dL (8.4-10.2) L 09/02/19 06:00 Phosphorus 3.20 mg/dL (2.5-4.5) 09/02/19 06:00 Magnesium 2.00 mg/dL (1.7-2.3) 09/02/19 06:00 Urine Creatinine 70.8 mg/dL (0.1-20.0) H 08/25/19 10:45 Urine Sodium 74 mmol/L 08/25/19 10:45 Medications & Allergies - Medications Allergies/Adverse Reactions: Allergies No Known Allergies Allergy (Unverified 07/11/13 08:29) Home Medications: Home Medications Medication Instructions Recorded Confirmed Last Taken Type Apixaban [Eliquis] 5 mg PO BID 08/22/19 08/22/19 Unknown History Ascorbic Acid [Vitamin C] 500 mg PO Q12H 08/22/19 08/22/19 Unknown History AtorvaSTATin [Lipitor] 40 mg PO QHS 08/22/19 08/22/19 Unknown History Carvedilol [Coreg] 6.25 mg PO BID 08/22/19 08/22/19 Unknown History Dicyclomine [Bentyl] 20 mg PO QID PRN 08/22/19 08/22/19 Unknown History Docusate Sodium [Colace] 100 mg PO BID 08/22/19 08/22/19 Unknown History Flomax 0.4 mg PO QHS 08/22/19 08/22/19 Unknown History Folic Acid [Folvite] 1 mg PO QDAY 08/22/19 08/22/19 Unknown History HYDROcodone/APAP 5-325 [[place] 1 each PO Q6HR PRN 08/22/19 08/22/19 Unknown History 5/325] Ibuprofen [Motrin] 600 mg PO Q8H PRN 08/22/19 08/22/19 Unknown History Lisinopril [Zestril TAB] 10 mg PO QDAY 08/22/19 08/22/19 Unknown History Loperamide [Imodium] 2 mg PO BID PRN 08/22/19 08/22/19 Unknown History Magnesium Hydroxide [Milk of 400 mg PO Q24HR PRN 08/22/19 08/22/19 Unknown History Magnesia] Melatonin 3 mg PO QHS 08/22/19 08/22/19 Unknown History Multivit with Minerals No.55 1 tab PO DAILY 08/22/19 08/22/19 Unknown History Pantoprazole [Protonix] 40 mg PO QDAY 08/22/19 08/22/19 Unknown History Sennosides/Docusate Sodium [Senna 1 each PO DAILY 08/22/19 08/22/19 Unknown History Plus Tablet] diphenhydrAMINE [Benadryl CAP] 25 mg PO Q6HR PRN 08/22/19 08/22/19 Unknown History Active Medications: Generic Name Dose Route Start Last Admin Trade Name Freq PRN Reason Stop Dose Admin Lipase/Protease/Amylase 1 each 08/26/19 12:00 Iván Solano 10,500 Unit FEEDTUBE PRN PRN For Clogged Feeding Tube Dextrose 50 ml 08/28/19 07:56 D50w (25gm) Syringe IV Q30MIN PRN Hypoglycemia Ferrous Sulfate 308 mg 09/02/19 10:00 Ferrous Sulfate PO QDAY KJ Hydromorphone HCl 0.25 mg 08/31/19 13:03 09/01/19 22:31 Dilaudid IV 0.25 mg Q6H PRN Administration Pain , Severe (7-10) Dextrose 1,000 mls @ 125 mls/hr 09/02/19 09:00 D5w IV DIRECT KJ Insulin Human Lispro 0 unit 08/28/19 08:00 09/02/19 06:37 Humalog SUB-Q Not Given Q6HR [facility] Protocol Lactulose 20 gm 08/27/19 14:00 09/02/19 06:38 Cephulac PO Not Given Q8HR [facility] Lansoprazole 30 mg 08/27/19 10:00 09/01/19 22:30 Prevacid Solutab FEEDTUBE 30 mg BID KJ Administration Nadolol 20 mg 08/27/19 11:00 09/01/19 11:14 Corgard PO 20 mg QDAY KJ Administration Simple Syrup 15 ml 08/26/19 12:00 Simple Syrup FEEDTUBE PRN PRN Hypoglycemia Simple Syrup 30 ml 08/26/19 12:00 Simple Syrup FEEDTUBE PRN PRN Hypoglycemia Sodium Bicarbonate 325 mg 08/26/19 12:00 Sodium Bicarbonate FEEDTUBE PRN PRN For Clogged Feeding Tube Sodium Chloride 10 ml 08/22/19 22:00 09/01/19 22:31 Sodium Chloride Flush Syringe 10 Ml IV 10 ml BID KJ Administration Sodium Chloride 10 ml 08/22/19 21:11 08/30/19 10:08 Sodium Chloride Flush Syringe 10 Ml IV 10 ml PRN PRN Administration LINE FLUSH
[2019-09-02] MEDS: HYDROmorphone 1 MG/1 ML INJ IV PRN ×2 (10:27→18:47)
[2019-09-02] MEDS: DEXTROSE 5% IN WATER 1,000 ML IV SCH ×2 (10:27→18:45)
[2019-09-02] MEDS: NADOLOL 20 MG TAB PO SCH (10:28)
[2019-09-02] MEDS: LANSOPRAZOLE 30 MG SOLUTAB FEEDTUBE SCH ×2 (10:29→22:45)
[2019-09-02] MEDS: FERROUS SULFATE 308 MG (62mg Elemental Iron) / 7 ML ELIXIR PO SCH (10:29)
--- NOTE | 2019-09-02 11:19 | Gastroenterology Progress Note ---
Assessment and Plan 1.PEG placement -patient with ongoing dysphagia and failed swallow/PERSON[employer]EL [employer] TECHNICIAN eval -according to chart review, patient has a hx of protein S deficiency with a prior portal vein thrombosis requiring extensive abdominal surgery -given cirrhosis complicated by ascites/varices, prior complex hiatal hernia seen on previous EGD, and previous abd surgery, an endoscopic placement of PEG tube may be difficult- may require surgical placement -continue TFs via [place] for now -continue supportive care -will discuss with Dr. Cruz and have him review imaging with further recommendations to follow 2.hepatic encephalopathy 3.H/o cirrhosis w/ esophageal varices -H/H stable, no active signs of bleeding -last EGD 2015 showed grade I esophageal varices (not source of bleeding), complex hiatal hernia, and vascular lesion (?prolapsed hernia tissue, ?Gastric varices, ?GIST) in the stomach not amenable to endoscopic tx requiring embolization by IR. 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 Patient resting in bed this am w/o acute distress. No evidence of abd pain, N/V, or signs of GI bleeding. Tolerating TFs via [place]. Objective - Constitutional Vitals: Temp Pulse Resp BP Pulse Ox 98.7 F 80 16 149/82 97 09/02/19 05:02 09/02/19 05:02 09/02/19 05:02 09/02/19 05:02 09/02/19 05:02 General appearance: no acute distress - Respiratory Respiratory effort: normal Respiratory: bilateral: diminished - Cardiovascular Rhythm: regular - Gastrointestinal General gastrointestinal: Present: soft, non-distended, normal bowel sounds - Neurologic Neurological: oriented to person - Labs CBC & Chem 7: 09/02/19 06:00 09/02/19 06:00 Labs: Laboratory Results - last 24 hr 09/01/19 09/01/19 09/01/19 11:41 16:26 23:43 WBC RBC Hgb Hct MCV MCH MCHC RDW Plt Count Lymph % (Auto) [place] % (Auto) Eos % (Auto) Baso % (Auto) Lymph # [place] # Eos # Baso # Seg Neutrophils % Seg Neutrophils # Sodium Potassium Chloride Carbon Dioxide Anion Gap BUN Creatinine Estimated GFR BUN/Creatinine Ratio Glucose POC Glucose 192 H 203 H 129 H Calcium Phosphorus Magnesium 09/02/19 09/02/19 09/02/19 05:35 06:00 06:00 WBC 17.4 H RBC 3.27 L Hgb 8.9 L Hct 28.1 L MCV 86 MCH 27 L MCHC 32 RDW 24.3 H Plt Count 208 Lymph % (Auto) 7.9 L [place] % (Auto) 12.6 H Eos % (Auto) 3.3 Baso % (Auto) 0.3 Lymph # 1.4 [place] # 2.2 H Eos # 0.6 H Baso # 0.1 Seg Neutrophils % 75.9 H Seg Neutrophils # 13.2 H Sodium 152 H D Potassium 3.8 Chloride 112.1 H Carbon Dioxide 29 Anion Gap 15 BUN 23 H Creatinine 0.7 L Estimated GFR > 60 BUN/Creatinine Ratio 33 Glucose 126 H POC Glucose 131 H Calcium 8.1 L Phosphorus 3.20 Magnesium 2.00
--- NOTE | 2019-09-02 12:53 | Progress Note ---
Assessment and Plan Cultures: Blood culture 08/22/2019 no growth. Urine culture 08/25/2019 no growth. MRSA culture negative. Assessment: 64 y/o male with diabetes, advanced liver cirrhosis with esophageal varices, multiple episodes of GI bleed, complex hiatal hernia, s/p left AKA, CVA and hypertension admitted on 08/22/2019 due to AMS, hematemesis and abdominal distension, now with leukemoid reaction: 1) Leukemoid reaction: likely due to acute GI bleed +/- UTI with acute urinary retention with underlying ESLD. He had a similar presentation in 2016 with acute GI bleed and leukemoid reaction. UTI wound not cause this leukocytosis. Blood culture negative. CXR x 2 negative. Patient with diarrhea due to lactulose. 2) ESLD with hepatic encephalopathy 3) Complicated mild UTI with urinary retention s/p ferguson: UA with 22 wbc and mod LE. Urine culture no growth. 4) LAVONNE due to urinary retention: improved. 5) Diarrhea: likely from lactulose. No fever. Recommendations: Remains afebrile, WBC trending down off abx. Will sign off. Please call back if questions or new concerns. Daniel Hess MD, FACP [facility] ([facility] C: [phone] O: [phone] F: [phone] Subjective Date of service: 09/02/19 Principal diagnosis: PEG Interval history: No fever. Feels well. Denies any complaints. Objective - Exam Narrative Exam: Physical Exam: Constitutional:awake, alert. No acute distress. Head, Ears, Nose: Normocephalic, atraumatic. External ears, nose normal. DHT + Eyes: Conjunctivae/corneas clear. No icterus. No ptosis. Neck: Supple, no meningeal signs Cardiovascular: S1, S2 normal. Respiratory: Good air entry, clear to auscultation bilaterally GI: Soft, non-tender; bowel sounds normal. No peritoneal signs Musculoskeletal: Left AKA well healed. No pedal edema. Skin: No rash or abscess. Hem/Lymphatic: No palpable cervical or supraclavicular nodes. No lymphangitis Psych: calm, no agitation Neurological: awake, alert. - Constitutional Vitals: Vital Signs Temp Pulse Resp BP Pulse Ox 98.7 F 80 16 149/82 97 09/02/19 05:02 09/02/19 05:02 09/02/19 05:02 09/02/19 05:02 09/02/19 05:02 Temperature -Last 24 Hours Temperature 98.7 F Temperature 99.2 F Temperature 97.9 F - Labs CBC & Chem 7: 09/02/19 06:00 09/02/19 06:00 Labs: Abnormal lab results 09/01/19 09/01/19 09/02/19 Range/Units 16:26 23:43 05:35 WBC (4.5-11.0) K/mm3 RBC (3.65-5.03) M/mm3 Hgb (11.8-15.2) gm/dl Hct (35.5-45.6) % MCH (28-32) pg RDW (13.2-15.2) % Lymph % (Auto) (13.4-35.0) % [place] % (Auto) (0.0-7.3) % [place] # (0.0-0.8) K/mm3 Eos # (0.0-0.4) K/mm3 Seg Neutrophils % (40.0-70.0) % Seg Neutrophils # (1.8-7.7) K/mm3 Sodium (137-145) mmol/L Chloride (98-107) mmol/L BUN (9-20) mg/dL Creatinine (0.8-1.5) mg/dL Glucose (75-100) mg/dL POC Glucose 203 H 129 H 131 H (70-105) Calcium (8.4-10.2) mg/dL 09/02/19 09/02/19 09/02/19 Range/Units 06:00 06:00 11:40 WBC 17.4 H (4.5-11.0) K/mm3 RBC 3.27 L (3.65-5.03) M/mm3 Hgb 8.9 L (11.8-15.2) gm/dl Hct 28.1 L (35.5-45.6) % MCH 27 L (28-32) pg RDW 24.3 H (13.2-15.2) % Lymph % (Auto) 7.9 L (13.4-35.0) % [place] % (Auto) 12.6 H (0.0-7.3) % [place] # 2.2 H (0.0-0.8) K/mm3 Eos # 0.6 H (0.0-0.4) K/mm3 Seg Neutrophils % 75.9 H (40.0-70.0) % Seg Neutrophils # 13.2 H (1.8-7.7) K/mm3 Sodium 152 H D (137-145) mmol/L Chloride 112.1 H (98-107) mmol/L BUN 23 H (9-20) mg/dL Creatinine 0.7 L (0.8-1.5) mg/dL Glucose 126 H (75-100) mg/dL POC Glucose 140 H (70-105) Calcium 8.1 L (8.4-10.2) mg/dL
--- NOTE | 2019-09-02 16:36 | Progress Note ---
Assessment and Plan Assessment and plan: This is a 64 year old man resident of a [place] with known hx of DM, HTN, Cirrhosis w/ varices, CVA and CAD who was admitted through emergency room with AMS and abdominal distention. As per family he is total care although with preserved mental function. He also informs us that the patient has had hemetemesis but not report of nausea or prior vomiting * In the ED the Patient was noted to have creat 15.2, K 7.2, HB 7.[address] abdomen showed obstructive uropathy. He is s/p ferguson catheter. Nephr ology was consulted for further evaluation. * Within 48 hrs he was noted to have a sodium of 170s * PER GI * hold blood thinning medications, BMs overnight with continue dark/black stool No hematemesis. * last EGD 2015 showed grade I esophageal varices (not source of bleeding), complex hiatal hernia, and vascular lesion (?prolapsed hernia tissue, ?Gastric varices, ?GIST) in the stomach not amenable to endoscopic tx requiring embolization by IR. * Octreotide -> Nadolol once taking PO; stop Eliquis; trend H/H, INR; no EGD planned * Failed swallow eval 08/25/19, also failed repeat * Was placed on BiPAP and solumedrol due to shortness of breath at 08/28/19 * Initial lab today (08/28/19) with high k and low sodium and high glucose was an error, repeat shows more consistent med. * Re-evaluate speech today for swallow eval and discuss with Family about PEG OR HOSPICE --Abnormal swallow eval; Speech Therapist recommend PEG placement Discussed with the daughter, agree for PEG placement GI evaluation for PEG placement noted and appreciated Recommend surgical consult --Hypernatremia; sodium level 152 IV D5W, free water flushes via NG tube Closely monitor electrolytes --Hepatic encephalopathy-Acute on chronic Continue lactulose, patient is more alert and awake today Supportive care. Ammonia levels improved to normal range --Complicated UTI; completed antibiotics Rocephin monitor off antibiotics --Sepsis secondary to complicated UTI; ID following --Leukemoid reaction; probably secondary to UTI and acute GI bleeding Cultures negative to date --Acute kidney injury/ Vasomotor nephropathy/obstructive uropathy/ Secondary to urinary retention ,Improved --History of left AKA; supportive care --History of CVA with residual weakness; Physical therapy supportive care --Coagulopathy; secondary to acidosis Closely monitor for bleeding --Cirrhosis liver. History VARICES; No active GI bleeding closely monitor --DVT prophylaxis; SCDs No pharmacologic anticoagulation in view of coagulopathy Monitor clinically and adjust management as needed --DO NOT RESUSCITATE status --Patient is critically ill with very poor prognosis Recommend hospice, Hospice consult Plan of care reviewed in detail with the patient's daughter over the phone Agree with PEG placement , follow GI and surgery recommendations Discharge planning patient will return to SNF when medically stable History Interval history: Patient seen and examined medical records reviewed Patient has abnormal swallow eval, speech therapist recommend PEG placement GI evaluated the patient, recommended surgical evaluation Patient is lethargic, confused, in mild distress No family at the bedside Vital signs reviewed Hospitalist Physical - Constitutional Vitals: Temp Pulse Resp BP Pulse Ox 98.7 F 80 16 149/82 97 09/02/19 05:02 09/02/19 05:02 09/02/19 05:02 09/02/19 05:02 09/02/19 05:02 General appearance: Present: mild distress, well-nourished, other (nonc ommunicative) - EENT Eyes: Present: PERRL, EOM intact - Neck Neck: Present: supple - Respiratory Respiratory effort: normal Respiratory: bilateral: diminished, rhonchi, negative: rales, wheezing - Cardiovascular Rhythm: regular Heart Sounds: Present: S1 & S2 - Extremities Extremities: no ischemia Extremity abnormal: edema - Abdominal General gastrointestinal: soft, non-tender, non-distended, normal bowel sounds - Integumentary Integumentary: Present: clear, warm - Psychiatric Psychiatric: other (noncommunicative) - Neurologic Neurologic: other (noncommunicative) Results - Labs CBC & Chem 7: 09/02/19 06:00 09/02/19 06:00 Labs: Laboratory Last Values WBC 17.4 K/mm3 (4.5-11.0) H 09/02/19 06:00 RBC 3.27 M/mm3 (3.65-5.03) L 09/02/19 06:00 Hgb 8.9 gm/dl (11.8-15.2) L 09/02/19 06:00 Hct 28.1 % (35.5-45.6) L 09/02/19 06:00 MCV 86 fl (84-94) 09/02/19 06:00 MCH 27 pg (28-32) L 09/02/19 06:00 MCHC 32 % (32-34) 09/02/19 06:00 RDW 24.3 % (13.2-15.2) H 09/02/19 06:00 Plt Count 208 K/mm3 (140-440) 09/02/19 06:00 Lymph % (Auto) 7.9 % (13.4-35.0) L 09/02/19 06:00 [place] % (Auto) 12.6 % (0.0-7.3) H 09/02/19 06:00 Eos % (Auto) 3.3 % (0.0-4.3) 09/02/19 06:00 Baso % (Auto) 0.3 % (0.0-1.8) 09/02/19 06:00 Lymph # 1.4 K/mm3 (1.2-5.4) 09/02/19 06:00 [place] # 2.2 K/mm3 (0.0-0.8) H 09/02/19 06:00 Eos # 0.6 K/mm3 (0.0-0.4) H 09/02/19 06:00 Baso # 0.1 K/mm3 (0.0-0.1) 09/02/19 06:00 Add Manual Diff Complete 08/30/19 10:00 Total Counted 100 08/30/19 10:00 Seg Neutrophils % 75.9 % (40.0-70.0) H 09/02/19 06:00 Seg Neuts % (Manual) 85.0 % (40.0-70.0) H 08/30/19 10:00 Band Neutrophils % 0 % 08/30/19 10:00 Lymphocytes % (Manual) 2.0 % (13.4-35.0) L 08/30/19 10:00 Reactive Lymphs % (Man) 0 % 08/30/19 10:00 Monocytes % (Manual) 10.0 % (0.0-7.3) H 08/30/19 10:00 Eosinophils % (Manual) 2.0 % (0.0-4.3) 08/30/19 10:00 Basophils % (Manual) 0 % (0.0-1.8) 08/30/19 10:00 Metamyelocytes % 0 % 08/30/19 10:00 Myelocytes % 1.0 % 08/30/19 10:00 Promyelocytes % 0 % 08/30/19 10:00 Blast Cells % 0 % 08/30/19 10:00 Nucleated RBC % Not Reportable 08/30/19 10:00 Seg Neutrophils # 13.2 K/mm3 (1.8-7.7) H 09/02/19 06:00 Seg Neutrophils # Man 13.3 K/mm3 (1.8-7.7) H 08/30/19 10:00 Band Neutrophils # 0.0 K/mm3 08/30/19 10:00 Lymphocytes # (Manual) 0.3 K/mm3 (1.2-5.4) L 08/30/19 10:00 Abs React Lymphs (Man) 0.0 K/mm3 08/30/19 10:00 Monocytes # (Manual) 1.6 K/mm3 (0.0-0.8) H 08/30/19 10:00 Eosinophils # (Manual) 0.3 K/mm3 (0.0-0.4) 08/30/19 10:00 Basophils # (Manual) 0.0 K/mm3 (0.0-0.1) 08/30/19 10:00 Metamyelocytes # 0.0 K/mm3 08/30/19 10:00 Myelocytes # 0.2 K/mm3 08/30/19 10:00 Promyelocytes # 0.0 K/mm3 08/30/19 10:00 Blast Cells # 0.0 K/mm3 08/30/19 10:00 WBC Morphology Not Reportable 08/30/19 10:00 Hypersegmented Neuts Not Reportable 08/30/19 10:00 Hyposegmented Neuts Not Reportable 08/30/19 10:00 Hypogranular Neuts Not Reportable 08/30/19 10:00 Smudge Cells Not Reportable 08/30/19 10:00 Toxic Granulation Not Reportable 08/30/19 10:00 Toxic Vacuolation Not Reportable 08/30/19 10:00 Dohle Bodies Not Reportable 08/30/19 10:00 Pelger-Huet Anomaly Not Reportable 08/30/19 10:00 Ramonita Rods Not Reportable 08/30/19 10:00 Platelet Estimate Consistent w auto 08/30/19 10:00 Clumped Platelets Not Reportable 08/30/19 10:00 Plt Clumps, EDTA Not Reportable 08/30/19 10:00 Large Platelets Not Reportable 08/30/19 10:00 Giant Platelets Not Reportable 08/30/19 10:00 Platelet Satelliting Not Reportable 08/30/19 10:00 Plt Morphology Comment Not Reportable 08/30/19 10:00 RBC Morphology Not Reportable 08/30/19 10:00 Dimorphic RBCs Not Reportable 08/30/19 10:00 Polychromasia Not Reportable 08/30/19 10:00 Hypochromasia Few 08/30/19 10:00 Poikilocytosis Not Reportable 08/30/19 10:00 Anisocytosis 2+ 08/30/19 10:00 Microcytosis Not Reportable 08/30/19 10:00 Macrocytosis Few 08/30/19 10:00 Spherocytes Not Reportable 08/30/19 10:00 Pappenheimer Bodies Not Reportable 08/30/19 10:00 Sickle Cells Not Reportable 08/30/19 10:00 Target Cells 1+ 08/30/19 10:00 Tear Drop Cells Not Reportable 08/30/19 10:00 Ovalocytes Not Reportable 08/30/19 10:00 Helmet Cells Not Reportable 08/30/19 10:00 Val[place] Bodies Not Reportable 08/30/19 10:00 Maurice Rings Not Reportable 08/30/19 10:00 Freddy Cells Not Reportable 08/30/19 10:00 Bite Cells Not Reportable 08/30/19 10:00 Crenated Cell Not Reportable 08/30/19 10:00 Elliptocytes Not Reportable 08/30/19 10:00 Acanthocytes (Spur) Not Reportable 08/30/19 10:00 Rouleaux Not Reportable 08/30/19 10:00 Hemoglobin C Crystals Not Reportable 08/30/19 10:00 Schistocytes Not Reportable 08/30/19 10:00 Malaria parasites Not Reportable 08/30/19 10:00 Noel Bodies Not Reportable 08/30/19 10:00 Hem Pathologist Commnt No 08/30/19 10:00 PT 17.8 Sec. (12.2-14.9) H 08/24/19 04:07 INR 1.51 (0.87-1.13) H 08/24/19 04:07 APTT 31.8 Sec. (24.2-36.6) 08/22/19 12:39 Sodium 152 mmol/L (137-145) H D 09/02/19 06:00 Potassium 3.8 mmol/L (3.6-5.0) 09/02/19 06:00 Chloride 112.1 mmol/L (98-107) H 09/02/19 06:00 Carbon Dioxide 29 mmol/L (22-30) 09/02/19 06:00 Anion Gap 15 mmol/L 09/02/19 06:00 BUN 23 mg/dL (9-20) H 09/02/19 06:00 Creatinine 0.7 mg/dL (0.8-1.5) L 09/02/19 06:00 Estimated GFR > 60 ml/min 09/02/19 06:00 BUN/Creatinine Ratio 33 % 09/02/19 06:00 Glucose 126 mg/dL (75-100) H 09/02/19 06:00 POC Glucose 140 (70-105) H 09/02/19 11:40 Osmolality 351 Mosm/kg 08/25/19 09:58 Lactic Acid 1.60 mmol/L (0.7-2.0) 08/22/19 23:07 Calcium 8.1 mg/dL (8.4-10.2) L 09/02/19 06:00 Phosphorus 3.20 mg/dL (2.5-4.5) 09/02/19 06:00 Magnesium 2.00 mg/dL (1.7-2.3) 09/02/19 06:00 Iron 15 ug/dL (49-181) L 08/30/19 10:00 TIBC 209 mcg/dL (250-450) L 08/30/19 10:00 Ferritin 104.6 ng/mL (13.0-400.0) 08/30/19 10:00 Total Bilirubin 0.50 mg/dL (0.1-1.2) 08/26/19 05:48 Direct Bilirubin < 0.2 mg/dL (0-0.2) 08/22/19 12:39 Indirect Bilirubin 0.1 mg/dL 08/22/19 12:39 AST 73 units/L (5-40) H 08/26/19 05:48 ALT 28 units/L (7-56) 08/26/19 05:48 Alkaline Phosphatase 118 units/L (35-129) 08/26/19 05:48 Ammonia 38.0 umol/L (25-60) 08/24/19 04:07 Troponin T < 0.010 ng/mL (0.00-0.029) 08/22/19 12:39 NT-Pro-B Natriuret Pep 1788 pg/mL (0-900) H 08/22/19 12:39 Total Protein 6.2 g/dL (6.3-8.2) L 08/26/19 05:48 Albumin 2.9 g/dL (3.9-5) L 08/26/19 05:48 Albumin/Globulin Ratio 0.9 % 08/26/19 05:48 Lipase 18 units/L (13-60) 08/22/19 12:39 Vitamin B12 596.1 pg/mL (211-911) 08/30/19 10:00 Folate 18.44 ng/mL (7.3-26.0) 08/30/19 10:00 Urine Color Yellow (Yellow) 08/25/19 10:45 Urine Turbidity Clear (Clear) 08/25/19 10:45 Urine pH 6.0 (5.0-7.0) 08/25/19 10:45 Ur Specific [place] 1.012 (1.003-1.030) 08/25/19 10:45 Urine Protein <15 mg/dl mg/dL (Negative) 08/25/19 10:45 Urine Glucose (UA) Neg mg/dL (Negative) 08/25/19 10:45 Urine Ketones Neg mg/dL (Negative) 08/25/19 10:45 Urine Blood Sm (Negative) 08/25/19 10:45 Urine Nitrite Neg (Negative) 08/25/19 10:45 Urine Bilirubin Neg (Negative) 08/25/19 10:45 Urine Urobilinogen < 2.0 mg/dL (<2.0) 08/25/19 10:45 Ur Leukocyte Esterase Sm (Negative) 08/25/19 10:45 Urine WBC (Auto) 17.0 /HPF (0.0-6.0) H 08/25/19 10:45 Urine RBC (Auto) 7.0 /HPF (0.0-6.0) 08/25/19 10:45 Urine Bacteria (Auto) 1+ /HPF (Negative) 08/25/19 10:45 Urine Mucus Few /HPF 08/25/19 10:45 Urine Osmolality 455 Mosm/kg 08/25/19 10:45 Urine Creatinine 70.8 mg/dL (0.1-20.0) H 08/25/19 10:45 Urine Sodium 74 mmol/L 08/25/19 10:45 Blood Type O POSITIVE 08/22/19 12:39 Antibody Screen Negative 08/22/19 12:39 Crossmatch See Detail 08/22/19 12:39 Active Medications - Current Medications Current Medications: Generic Name Dose Route Start Last Admin Trade Name Freq PRN Reason Stop Dose Admin Lipase/Protease/Amylase 1 each 08/26/19 12:00 Pancreazpaloma Solano 10,500 Unit FEEDTUBE PRN PRN For Clogged Feeding Tube Dextrose 50 ml 08/28/19 07:56 D50w (25gm) Syringe IV Q30MIN PRN Hypoglycemia Ferrous Sulfate 308 mg 09/02/19 10:00 09/02/19 10:29 Ferrous Sulfate PO Not Given QDAY KJ Hydromorphone HCl 0.25 mg 08/31/19 13:03 09/02/19 10:27 Dilaudid IV 0.25 mg Q6H PRN Administration Pain , Severe (7-10) Dextrose 1,000 mls @ 125 mls/hr 09/02/19 09:00 09/02/19 10:27 D5w IV 125 mls/hr DIRECT KJ Administration Insulin Human Lispro 0 unit 08/28/19 08:00 09/02/19 15:46 Humalog SUB-Q Not Given Q6HR KJ Protocol Lactulose 20 gm 08/27/19 14:00 09/02/19 15:53 Cephulac PO 20 gm Q8HR KJ Administration Lansoprazole 30 mg 08/27/19 10:00 09/02/19 10:29 Prevacid Solutab FEEDTUBE Not Given BID KJ Nadolol 20 mg 08/27/19 11:00 09/02/19 10:28 Corgard PO Not Given QDAY KJ Simple Syrup 15 ml 08/26/19 12:00 Simple Syrup FEEDTUBE PRN PRN Hypoglycemia Simple Syrup 30 ml 08/26/19 12:00 Simple Syrup FEEDTUBE PRN PRN Hypoglycemia Sodium Bicarbonate 325 mg 08/26/19 12:00 Sodium Bicarbonate FEEDTUBE PRN PRN For Clogged Feeding Tube Sodium Chloride 10 ml 08/22/19 22:00 09/02/19 10:29 Sodium Chloride Flush Syringe 10 Ml IV 10 ml BID KJ Administration Sodium Chloride 10 ml 08/22/19 21:11 08/30/19 10:08 Sodium Chloride Flush Syringe 10 Ml IV 10 ml PRN PRN Administration LINE FLUSH Nutrition/Malnutrition Assess - Dietary Evaluation Nutrition/Malnutrition Findings: Nutrition Notes Start: 08/26/19 10:54 Freq: Status: Active Protocol: Document 09/01/19 12:55 RM (Rec: 09/01/19 12:58 RM [id number]) Nutrition Notes Initial or Follow up Reassessment Current Diagnosis Acute Kidney Injury,Diabetes, Hypertension Other Pertinent Diagnosis Cirrhosis, hepatic encephalopathy Current Diet Osmolite 1.5 at 60 ml/hr Labs/Tests Reviewed Pertinent Medications Reviewed Height 6 ft Weight 91.6 kg [place] Body Weight (kg) 80.90 BMI 27.3 Weight change and time frame Current wt obtained from [facility]. Subjective/Other Information re-evaluated pt. NPO and group home alternative nutrition recommended per progress note 08/31/19. Observed Osmolite 1.5 infusing at goal rate via NG tube. Per nurse pt is tolerating TF. Noted slight temporal and moderate orbital wasting. Per MD pt has mild ascites. Percent of energy/protein needs met: 100/100% Burn Absent Trauma Absent Minimum of two criteria Yes Body Fat Depletion Moderate depletion (severe) Muscle Mass Mild Depletion (non-severe) Fluid Accumulation Mild (non-severe) #2 Nutrition Diagnosis Malnutrition Etiology cirrhosis As Evidenced by Signs and Symptoms temporal and orbital wasting, statement that pt has mild ascites #1 Nutrition Diagnosis Inadequate oral intake Diagnosis Progress(for reassessment Continues documentation) Is patient on ventilator? No Is Patient Ambulatory and/or Out of Bed No REE-(Gordon-St. Jeor-confined to bed) 2242.041 Calculation Used for Recommendations [facility] Additional Notes PRO needs (1-1.2g/kg): 92-112g/day Fluid needs: 1mL/kcal Nutrition Intervention Nutrition Support: Osmolite 1.5 at 60 ml/hr (goal rate) Water flush of 185 mL q 4 hours Kcal 2,160 Protein (gm) 90 Fluid (mL) 1,097 Goal #1 TF tolerance Goal #2 Continue to meet at least 75% of calorie and protein needs via TF Anticipated Discharge Needs: TF Follow-Up By: 09/03/19 Additional Comments Follow for POC
[2019-09-02] MEDS ORDERED: LORazepam 2 MG/ML VIAL IV ONE (22:32)
[2019-09-03] MEDS: INSULIN LISPRO 100 UNIT/ML SUB-Q SCH ×4 (00:37→19:01)
[2019-09-03] MEDS: HYDROmorphone 1 MG/1 ML INJ IV PRN ×4 (00:47→22:56)
[2019-09-03] MEDS: LACTULOSE 20 GM/30 ML ORAL LIQD PO SCH ×3 (06:04→22:57)
[2019-09-03] MEDS: DEXTROSE 5% IN WATER 1,000 ML IV SCH ×2 (06:05→14:30)
[2019-09-03 08:05] LABS: Basophils # (Auto) 0.1 K/mm3 (0.0-0.1); Basophils % (Auto) 0.5 % (0.0-1.8); Eosinophils # (Auto) 0.8 K/mm3 (0.0-0.4); Eosinophils % (Auto) 5.5 % (0.0-4.3); Hematocrit 28.4 % (35.5-45.6); Hemoglobin 8.7 gm/dl (11.8-15.2); Lymphocytes # (Auto) 1.6 K/mm3 (1.2-5.4); Lymphocytes % (Auto) 11.8 % (13.4-35.0); Mean Corpuscular HGB Conc 31 % (32-34); Mean Corpuscular Volume 87 fl (84-94); Monocytes # (Auto) 1.8 K/mm3 (0.0-0.8); Monocytes % (Auto) 12.6 % (0.0-7.3); Platelet Count 221 K/mm3 (140-440); Red Blood Count 3.26 M/mm3 (3.65-5.03)
[2019-09-03 08:12] LABS: BUN/Creatinine Ratio 26; Blood Urea Nitrogen 21 mg/dL (9-20); Calcium 8.1 mg/dL (8.4-10.2)
[2019-09-03 08:13] LABS: Alanine Aminotransferase 38 units/L (7-56); Albumin 2.6 g/dL (3.9-5); Hemolysis Index 3
[2019-09-03 08:48] LABS: Bilirubin,Direct < 0.2 mg/dL (0-0.2)
--- NOTE | 2019-09-03 10:52 | Progress Note ---
Assessment and Plan 1. Acute kidney injury: LAVONNE in the setting of obstructive uropathy +/- vasomotor insult. CT abdomen showed obstructive nephropathy. S/p ferguson catheter. Renal function is better. Monitor renal function. Avoid nephrotoxic agents. Meds dosage based on GFR. 2. FEN: Hypernatremia, continue IV 1D5W. Hypokalemia, monitor and replete K. Metabolic acidosis, improved. Monitor lytes. 3. GI bleed/hematemesis: H/o Esophageal varices. 4. H/o Cirrhosis. 5. Hepatic encephalopathy. 6. Acute blood loss Anemia: POA. S/p PRBC. 7. Dysphagia: Gen Surgery consulted for PEG placement. Examination: General appearance: well-developed, appears stated age, no distress, NG tube noted, on mittens HEENT: ATNC, IBRAHIMA Neck: trachea midline Respiratory: Clear to Ascultation Heart: S1S2, regular, no murmur Gastrointestinal: normoactive bowel sounds, NT Integumentary: stasis changes R leg : Ferguson catheter Neurologic: able to move extremities, L sided weakness noted, aphasia Musculoskeletal: L BKA Subjective Date of service: 09/03/19 Principal diagnosis: high wbc Interval history: Patient was seen and examined at the bedside. Objective - Vital Signs Vital signs: Vital Signs - 12hr 09/02/19 09/03/19 09/03/19 23:20 00:47 05:08 Temperature 98.1 F 98.6 F Pulse Rate 94 H 85 Respiratory 18 18 19 Rate Blood Pressure 135/67 126/64 O2 Sat by Pulse 93 95 Oximetry - Lab 09/03/19 07:42 09/03/19 07:42 Most recent lab results Calcium 8.1 mg/dL (8.4-10.2) L 09/03/19 07:42 Phosphorus 2.90 mg/dL (2.5-4.5) 09/03/19 07:42 Magnesium 2.00 mg/dL (1.7-2.3) 09/02/19 06:00 Urine Creatinine 70.8 mg/dL (0.1-20.0) H 08/25/19 10:45 Urine Sodium 74 mmol/L 08/25/19 10:45 Medications & Allergies - Medications Allergies/Adverse Reactions: Allergies No Known Allergies Allergy (Unverified 07/11/13 08:29) Home Medications: Home Medications Medication Instructions Recorded Confirmed Last Taken Type Apixaban [Eliquis] 5 mg PO BID 08/22/19 08/22/19 Unknown History Ascorbic Acid [Vitamin C] 500 mg PO Q12H 08/22/19 08/22/19 Unknown History AtorvaSTATin [Lipitor] 40 mg PO QHS 08/22/19 08/22/19 Unknown History Carvedilol [Coreg] 6.25 mg PO BID 08/22/19 08/22/19 Unknown History Dicyclomine [Bentyl] 20 mg PO QID PRN 08/22/19 08/22/19 Unknown History Docusate Sodium [Colace] 100 mg PO BID 08/22/19 08/22/19 Unknown History Flomax 0.4 mg PO QHS 08/22/19 08/22/19 Unknown History Folic Acid [Folvite] 1 mg PO QDAY 08/22/19 08/22/19 Unknown History HYDROcodone/APAP 5-325 [[place] 1 each PO Q6HR PRN 08/22/19 08/22/19 Unknown History 5/325] Ibuprofen [Motrin] 600 mg PO Q8H PRN 08/22/19 08/22/19 Unknown History Lisinopril [Zestril TAB] 10 mg PO QDAY 08/22/19 08/22/19 Unknown History Loperamide [Imodium] 2 mg PO BID PRN 08/22/19 08/22/19 Unknown History Magnesium Hydroxide [Milk of 400 mg PO Q24HR PRN 08/22/19 08/22/19 Unknown History Magnesia] Melatonin 3 mg PO QHS 08/22/19 08/22/19 Unknown History Multivit with Minerals No.55 1 tab PO DAILY 08/22/19 08/22/19 Unknown History Pantoprazole [Protonix] 40 mg PO QDAY 08/22/19 08/22/19 Unknown History Sennosides/Docusate Sodium [Senna 1 each PO DAILY 08/22/19 08/22/19 Unknown History Plus Tablet] diphenhydrAMINE [Benadryl CAP] 25 mg PO Q6HR PRN 08/22/19 08/22/19 Unknown History Active Medications: Generic Name Dose Route Start Last Admin Trade Name Freq PRN Reason Stop Dose Admin Lipase/Protease/Amylase 1 each 08/26/19 12:00 Pancrekiara Solano 10,500 Unit FEEDTUBE PRN PRN For Clogged Feeding Tube Dextrose 50 ml 08/28/19 07:56 D50w (25gm) Syringe IV Q30MIN PRN Hypoglycemia Ferrous Sulfate 308 mg 09/02/19 10:00 09/02/19 10:29 Ferrous Sulfate PO Not Given QDAY KJ Hydromorphone HCl 0.25 mg 08/31/19 13:03 09/03/19 10:01 Dilaudid IV 0.25 mg Q6H PRN Administration Pain , Severe (7-10) Dextrose 1,000 mls @ 125 mls/hr 09/02/19 09:00 09/03/19 06:05 D5w IV 125 mls/hr DIRECT KJ Administration Insulin Human Lispro 0 unit 08/28/19 08:00 09/03/19 06:04 Humalog SUB-Q 2 unit Q6HR KJ Administration Protocol Lactulose 20 gm 08/27/19 14:00 09/03/19 06:04 Cephulac PO 20 gm Q8HR KJ Administration Lansoprazole 30 mg 08/27/19 10:00 09/02/19 22:45 Prevacid Solutab FEEDTUBE 30 mg BID KJ Administration Nadolol 20 mg 08/27/19 11:00 09/02/19 10:28 Corgard PO Not Given QDAY KJ Simple Syrup 15 ml 08/26/19 12:00 Simple Syrup FEEDTUBE PRN PRN Hypoglycemia Simple Syrup 30 ml 08/26/19 12:00 Simple Syrup FEEDTUBE PRN PRN Hypoglycemia Sodium Bicarbonate 325 mg 08/26/19 12:00 Sodium Bicarbonate FEEDTUBE PRN PRN For Clogged Feeding Tube Sodium Chloride 10 ml 08/22/19 22:00 09/02/19 22:45 Sodium Chloride Flush Syringe 10 Ml IV 10 ml BID KJ Administration Sodium Chloride 10 ml 08/22/19 21:11 08/30/19 10:08 Sodium Chloride Flush Syringe 10 Ml IV 10 ml PRN PRN Administration LINE FLUSH
[2019-09-03] MEDS: LANSOPRAZOLE 30 MG SOLUTAB FEEDTUBE SCH ×2 (10:56→22:58)
[2019-09-03] MEDS: NADOLOL 20 MG TAB PO SCH ×2 (10:56→16:19)
[2019-09-03] MEDS: FERROUS SULFATE 308 MG (62mg Elemental Iron) / 7 ML ELIXIR PO SCH ×2 (10:56→16:10)
--- NOTE | 2019-09-03 11:10 | Consultation ---
History of Present Illness Consult date: 09/03/19 Requesting physician: SUZIE ROWELL Chief complaint: inability to eat - History of present illness History of present illness: Patient is a 64 y/o [facility] resident with multiple medical conditions (cir rhosis w/ varices, CVA, CAD, etc.) who was brought to ED for evaluation of AMS and abdominal distention. He was ultimately stabilized and assessed to be in need of a PEG. GI had concerns about standard PEG placement due to complicated medical and surgical history. General Surgery was consulted to place feeding tube. Pt unable to give much history and family not at bedside. 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 denies: smoking, alcohol abuse, prescription drug abuse, IV drug use Medications and Allergies Allergies Allergy/AdvReac Type Severity Reaction Status Date / Time No Known Allergies Allergy Unverified 07/11/13 08:29 Home Medications Medication Instructions Recorded Confirmed Last Taken Type Apixaban [Eliquis] 5 mg PO BID 08/22/19 08/22/19 Unknown History Ascorbic Acid [Vitamin C] 500 mg PO Q12H 08/22/19 08/22/19 Unknown History AtorvaSTATin [Lipitor] 40 mg PO QHS 08/22/19 08/22/19 Unknown History Carvedilol [Coreg] 6.25 mg PO BID 08/22/19 08/22/19 Unknown History Dicyclomine [Bentyl] 20 mg PO QID PRN 08/22/19 08/22/19 Unknown History Docusate Sodium [Colace] 100 mg PO BID 08/22/19 08/22/19 Unknown History Flomax 0.4 mg PO QHS 08/22/19 08/22/19 Unknown History Folic Acid [Folvite] 1 mg PO QDAY 08/22/19 08/22/19 Unknown History HYDROcodone/APAP 5-325 [[place] 1 each PO Q6HR PRN 08/22/19 08/22/19 Unknown History 5/325] Ibuprofen [Motrin] 600 mg PO Q8H PRN 08/22/19 08/22/19 Unknown History Lisinopril [Zestril TAB] 10 mg PO QDAY 08/22/19 08/22/19 Unknown History Loperamide [Imodium] 2 mg PO BID PRN 08/22/19 08/22/19 Unknown History Magnesium Hydroxide [Milk of 400 mg PO Q24HR PRN 08/22/19 08/22/19 Unknown History Magnesia] Melatonin 3 mg PO QHS 08/22/19 08/22/19 Unknown History Multivit with Minerals No.55 1 tab PO DAILY 08/22/19 08/22/19 Unknown History Pantoprazole [Protonix] 40 mg PO QDAY 08/22/19 08/22/19 Unknown History Sennosides/Docusate Sodium [Senna 1 each PO DAILY 08/22/19 08/22/19 Unknown History Plus Tablet] diphenhydrAMINE [Benadryl CAP] 25 mg PO Q6HR PRN 08/22/19 08/22/19 Unknown History Active Meds: Active Medications Lipase/Protease/Amylase (Pancreaze Dr 10,500 Unit) 1 each FEEDTUBE PRN PRN PRN Reason: For Clogged Feeding Tube Dextrose (D50w (25gm) Syringe) 50 ml IV Q30MIN PRN PRN Reason: Hypoglycemia Ferrous Sulfate (Ferrous Sulfate) 308 mg PO QDAY [facility] Last Admin: 09/02/19 10:29 Dose: Not Given Documented by: Hydromorphone HCl (Dilaudid) 0.25 mg IV Q6H PRN PRN Reason: Pain , Severe (7-10) Last Admin: 09/03/19 10:01 Dose: 0.25 mg Documented by: Dextrose (D5w) 1,000 mls @ 125 mls/hr IV DIRECT KJ Last Admin: 09/03/19 06:05 Dose: 125 mls/hr Documented by: Potassium Chloride (Kcl 10meq/100ml) 10 meq in 100 mls @ 100 mls/hr IV Q1H KJ Stop: 09/03/19 15:59 Insulin Human Lispro (Humalog) 0 unit SUB-Q Q6HR KJ; Protocol Last Admin: 09/03/19 06:04 Dose: 2 unit Documented by: Lactulose (Cephulac) 20 gm PO Q8HR KJ Last Admin: 09/03/19 06:04 Dose: 20 gm Documented by: Lansoprazole (Prevacid Solutab) 30 mg FEEDTUBE BID [facility] Last Admin: 09/02/19 22:45 Dose: 30 mg Documented by: Nadolol (Corgard) 20 mg PO QDAY [facility] Last Admin: 09/02/19 10:28 Dose: Not Given Documented by: Simple Syrup (Simple Syrup) 15 ml FEEDTUBE PRN PRN PRN Reason: Hypoglycemia Simple Syrup (Simple Syrup) 30 ml FEEDTUBE PRN PRN PRN Reason: Hypoglycemia Sodium Bicarbonate (Sodium Bicarbonate) 325 mg FEEDTUBE PRN PRN PRN Reason: For Clogged Feeding Tube Sodium Chloride (Sodium Chloride Flush Syringe 10 Ml) 10 ml IV BID [facility] Last Admin: 09/03/19 11:00 Dose: 10 ml Documented by: Sodium Chloride (Sodium Chloride Flush Syringe 10 Ml) 10 ml IV PRN PRN PRN Reason: LINE FLUSH Last Admin: 08/30/19 10:08 Dose: 10 ml Documented by: Review of Systems ROS unobtainable: due to mental status Exam Vital Signs Pulse Resp BP Pulse Ox 70 14 153/66 92 08/22/19 11:45 08/22/19 11:45 08/22/19 11:45 08/22/19 11:45 - General physical appearance Positive: no distress, no pain - Respiratory Positive: normal expansion, normal respiratory effort - Abdomen Abdomen: Present: soft, surgical scars (well healed chevron incision, abdominal midline incision, and median sternotomy incision). Absent: tender, distended, masses, guarding, rigid, wound - Integumentary no rash, no growths, no abnormal pigmentation - Psychiatric Psychiatric: cooperative Results - Labs 09/03/19 07:42 09/03/19 07:42 Abnormal lab results 09/02/19 09/02/19 09/02/19 Range/Units 11:40 17:55 23:55 WBC (4.5-11.0) K/mm3 RBC (3.65-5.03) M/mm3 Hgb (11.8-15.2) gm/dl Hct (35.5-45.6) % MCH (28-32) pg MCHC (32-34) % RDW (13.2-15.2) % Lymph % (Auto) (13.4-35.0) % [place] % (Auto) (0.0-7.3) % Eos % (Auto) (0.0-4.3) % [place] # (0.0-0.8) K/mm3 Eos # (0.0-0.4) K/mm3 Seg Neutrophils # (1.8-7.7) K/mm3 Potassium (3.6-5.0) mmol/L BUN (9-20) mg/dL Glucose (75-100) mg/dL POC Glucose 140 H 223 H 175 H (70-105) Calcium (8.4-10.2) mg/dL AST (5-40) units/L Alkaline Phosphatase (35-129) units/L Albumin (3.9-5) g/dL 09/03/19 09/03/19 09/03/19 Range/Units 05:53 07:42 07:42 WBC 13.9 H (4.5-11.0) K/mm3 RBC 3.26 L (3.65-5.03) M/mm3 Hgb 8.7 L (11.8-15.2) gm/dl Hct 28.4 L (35.5-45.6) % MCH 27 L (28-32) pg MCHC 31 L (32-34) % RDW 24.0 H (13.2-15.2) % Lymph % (Auto) 11.8 L (13.4-35.0) % [place] % (Auto) 12.6 H (0.0-7.3) % Eos % (Auto) 5.5 H (0.0-4.3) % [place] # 1.8 H (0.0-0.8) K/mm3 Eos # 0.8 H (0.0-0.4) K/mm3 Seg Neutrophils # 9.7 H (1.8-7.7) K/mm3 Potassium 3.2 L (3.6-5.0) mmol/L BUN 21 H (9-20) mg/dL Glucose 181 H (75-100) mg/dL POC Glucose 176 H (70-105) Calcium 8.1 L (8.4-10.2) mg/dL AST 42 H (5-40) units/L Alkaline Phosphatase 227 H (35-129) units/L Albumin 2.6 L (3.9-5) g/dL Diabetes panel 09/03/19 Range/Units 07:42 Sodium 143 D (137-145) mmol/L Potassium 3.2 L (3.6-5.0) mmol/L Chloride 106.0 (98-107) mmol/L Carbon Dioxide 27 (22-30) mmol/L BUN 21 H (9-20) mg/dL Creatinine 0.8 (0.8-1.5) mg/dL Glucose 181 H (75-100) mg/dL Calcium 8.1 L (8.4-10.2) mg/dL AST 42 H (5-40) units/L ALT 38 (7-56) units/L Alkaline Phosphatase 227 H (35-129) units/L Total Protein 6.4 (6.3-8.2) g/dL Albumin 2.6 L (3.9-5) g/dL Calcium panel 09/03/19 Range/Units 07:42 Calcium 8.1 L (8.4-10.2) mg/dL Phosphorus 2.90 (2.5-4.5) mg/dL Albumin 2.6 L (3.9-5) g/dL Pituitary panel 09/03/19 Range/Units 07:42 Sodium 143 D (137-145) mmol/L Potassium 3.2 L (3.6-5.0) mmol/L Chloride 106.0 (98-107) mmol/L Carbon Dioxide 27 (22-30) mmol/L BUN 21 H (9-20) mg/dL Creatinine 0.8 (0.8-1.5) mg/dL Glucose 181 H (75-100) mg/dL Calcium 8.1 L (8.4-10.2) mg/dL Adrenal panel 09/03/19 Range/Units 07:42 Sodium 143 D (137-145) mmol/L Potassium 3.2 L (3.6-5.0) mmol/L Chloride 106.0 (98-107) mmol/L Carbon Dioxide 27 (22-30) mmol/L BUN 21 H (9-20) mg/dL Creatinine 0.8 (0.8-1.5) mg/dL Glucose 181 H (75-100) mg/dL Calcium 8.1 L (8.4-10.2) mg/dL Total Bilirubin 0.50 (0.1-1.2) mg/dL AST 42 H (5-40) units/L ALT 38 (7-56) units/L Alkaline Phosphatase 227 H (35-129) units/L Total Protein 6.4 (6.3-8.2) g/dL Albumin 2.6 L (3.9-5) g/dL - Imaging CT scan - abdomen: report reviewed, image reviewed CT scan - pelvis: report reviewed, image reviewed Assessment and Plan - Patient Problems (1) Dysphagia Current Visit: Yes Status: Acute Qualifiers: Dysphagia type: unspecified Qualified Code(s): R13.10 - Dysphagia, unspecified Plan to address problem: Pt stable. Pt in need of feeding access due to dysphagia and multiple medical problems. Will plan for feeding tube placement in stomach, but would be best done in the OR. Family not in the room. Tried to call, but unable to leave voicemail. Once we are able to get consent, I will schedule the patient in the OR. Please call with questions. time=30min
[2019-09-03] MEDS: POTASSIUM CHLORIDE 10 MEQ 10 MEQ/100 ML BAG IV SCH ×4 (14:29→22:58)
--- NOTE | 2019-09-03 18:28 | Progress Note ---
Assessment and Plan Assessment and plan: This is a 64 year old man resident of a [place] with known hx of DM, HTN, Cirrhosis w/ varices, CVA and CAD who was admitted through emergency room with AMS and abdominal distention. As per family he is total care although with preserved mental function. He also informs us that the patient has had hemetemesis but not report of nausea or prior vomiting * In the ED the Patient was noted to have creat 15.2, K 7.2, HB 7.[address] abdomen showed obstructive uropathy. He is s/p ferguson catheter. Nephr ology was consulted for further evaluation. * Within 48 hrs he was noted to have a sodium of 170s * PER GI * hold blood thinning medications, BMs overnight with continue dark/black stool No hematemesis. * last EGD 2015 showed grade I esophageal varices (not source of bleeding), complex hiatal hernia, and vascular lesion (?prolapsed hernia tissue, ?Gastric varices, ?GIST) in the stomach not amenable to endoscopic tx requiring embolization by IR. * Octreotide -> Nadolol once taking PO; stop Eliquis; trend H/H, INR; no EGD planned * Failed swallow eval 08/25/19, also failed repeat * Was placed on BiPAP and solumedrol due to shortness of breath at 08/28/19 * Initial lab today (08/28/19) with high k and low sodium and high glucose was an error, repeat shows more consistent med. * Re-evaluate speech today for swallow eval and discuss with Family about PEG OR HOSPICE --Abnormal swallow eval; Speech Therapist recommend PEG placement Discussed with the daughter, agree for PEG placement GI evaluation noted and appreciated, recommend surgical placement of PEG Dr. Thomas surgeon evaluated the patient, planning to schedule next week --Hypernatremia; sodium level 152-143 Continue IV D5W, free water flushes via NG tube monitor electrolytes --Hepatic encephalopathy-Acute on chronic Continue lactulose, patient is more alert and awake today Supportive care. Ammonia levels improved to normal range --Complicated UTI; completed antibiotics Rocephin monitor off antibiotics --Sepsis secondary to complicated UTI; off antibiotics --Leukemoid reaction; probably secondary to UTI and acute GI bleeding Cultures negative to date --Acute kidney injury/ Vasomotor nephropathy/obstructive uropathy/ Secondary to urinary retention ,Improved --History of left AKA; supportive care --History of CVA with residual weakness; Physical therapy supportive care --Coagulopathy; secondary to acidosis Closely monitor for bleeding --Cirrhosis liver. History VARICES; No active GI bleeding closely monitor --DVT prophylaxis; SCDs No pharmacologic anticoagulation in view of coagulopathy Monitor clinically and adjust management as needed --DO NOT RESUSCITATE status --Patient is critically ill with very poor prognosis Recommend hospice, Hospice consult Plan of care reviewed in detail with the patient's daughter over the phone Agree with PEG placement , PEG procedure next week Discharge planning patient will return to SNF when medically stable History Interval history: Patient seen and examined medical records reviewed Patient failed swallow evaluation, GI evaluated the patient Recommend surgical consult for surgical placement of PEG tube Patient noncommunicative, chronically ill looking Vital signs reviewed Hospitalist Physical - Constitutional Vitals: Temp Pulse Resp BP Pulse Ox 99.1 F 83 16 126/66 95 09/03/19 16:17 09/03/19 16:19 09/03/19 16:17 09/03/19 16:19 09/03/19 16:17 General appearance: Present: mild distress, well-nourished - EENT Eyes: Present: PERRL, EOM intact - Neck Neck: Present: supple, normal ROM - Respiratory Respiratory effort: normal Respiratory: bilateral: diminished, rhonchi, negative: rales, wheezing - Cardiovascular Rhythm: regular Heart Sounds: Present: S1 & S2 - Extremities Extremities: no ischemia Extremity abnormal: edema - Abdominal General gastrointestinal: soft, non-tender, distended, normal bowel sounds - Integumentary Integumentary: Present: clear, warm - Psychiatric Psychiatric: other (confused and minimally communicative) - Neurologic Neurologic: moves all extremities Results - Labs CBC & Chem 7: 09/03/19 07:42 09/03/19 07:42 Labs: Laboratory Last Values WBC 13.9 K/mm3 (4.5-11.0) H 09/03/19 07:42 RBC 3.26 M/mm3 (3.65-5.03) L 09/03/19 07:42 Hgb 8.7 gm/dl (11.8-15.2) L 09/03/19 07:42 Hct 28.4 % (35.5-45.6) L 09/03/19 07:42 MCV 87 fl (84-94) 09/03/19 07:42 MCH 27 pg (28-32) L 09/03/19 07:42 MCHC 31 % (32-34) L 09/03/19 07:42 RDW 24.0 % (13.2-15.2) H 09/03/19 07:42 Plt Count 221 K/mm3 (140-440) 09/03/19 07:42 Lymph % (Auto) 11.8 % (13.4-35.0) L 09/03/19 07:42 [place] % (Auto) 12.6 % (0.0-7.3) H 09/03/19 07:42 Eos % (Auto) 5.5 % (0.0-4.3) H 09/03/19 07:42 Baso % (Auto) 0.5 % (0.0-1.8) 09/03/19 07:42 Lymph # 1.6 K/mm3 (1.2-5.4) 09/03/19 07:42 [place] # 1.8 K/mm3 (0.0-0.8) H 09/03/19 07:42 Eos # 0.8 K/mm3 (0.0-0.4) H 09/03/19 07:42 Baso # 0.1 K/mm3 (0.0-0.1) 09/03/19 07:42 Add Manual Diff Complete 08/30/19 10:00 Total Counted 100 08/30/19 10:00 Seg Neutrophils % 69.6 % (40.0-70.0) 09/03/19 07:42 Seg Neuts % (Manual) 85.0 % (40.0-70.0) H 08/30/19 10:00 Band Neutrophils % 0 % 08/30/19 10:00 Lymphocytes % (Manual) 2.0 % (13.4-35.0) L 08/30/19 10:00 Reactive Lymphs % (Man) 0 % 08/30/19 10:00 Monocytes % (Manual) 10.0 % (0.0-7.3) H 08/30/19 10:00 Eosinophils % (Manual) 2.0 % (0.0-4.3) 08/30/19 10:00 Basophils % (Manual) 0 % (0.0-1.8) 08/30/19 10:00 Metamyelocytes % 0 % 08/30/19 10:00 Myelocytes % 1.0 % 08/30/19 10:00 Promyelocytes % 0 % 08/30/19 10:00 Blast Cells % 0 % 08/30/19 10:00 Nucleated RBC % Not Reportable 08/30/19 10:00 Seg Neutrophils # 9.7 K/mm3 (1.8-7.7) H 09/03/19 07:42 Seg Neutrophils # Man 13.3 K/mm3 (1.8-7.7) H 08/30/19 10:00 Band Neutrophils # 0.0 K/mm3 08/30/19 10:00 Lymphocytes # (Manual) 0.3 K/mm3 (1.2-5.4) L 08/30/19 10:00 Abs React Lymphs (Man) 0.0 K/mm3 08/30/19 10:00 Monocytes # (Manual) 1.6 K/mm3 (0.0-0.8) H 08/30/19 10:00 Eosinophils # (Manual) 0.3 K/mm3 (0.0-0.4) 08/30/19 10:00 Basophils # (Manual) 0.0 K/mm3 (0.0-0.1) 08/30/19 10:00 Metamyelocytes # 0.0 K/mm3 08/30/19 10:00 Myelocytes # 0.2 K/mm3 08/30/19 10:00 Promyelocytes # 0.0 K/mm3 08/30/19 10:00 Blast Cells # 0.0 K/mm3 08/30/19 10:00 WBC Morphology Not Reportable 08/30/19 10:00 Hypersegmented Neuts Not Reportable 08/30/19 10:00 Hyposegmented Neuts Not Reportable 08/30/19 10:00 Hypogranular Neuts Not Reportable 08/30/19 10:00 Smudge Cells Not Reportable 08/30/19 10:00 Toxic Granulation Not Reportable 08/30/19 10:00 Toxic Vacuolation Not Reportable 08/30/19 10:00 Dohle Bodies Not Reportable 08/30/19 10:00 Pelger-Huet Anomaly Not Reportable 08/30/19 10:00 Ramonita Rods Not Reportable 08/30/19 10:00 Platelet Estimate Consistent w auto 08/30/19 10:00 Clumped Platelets Not Reportable 08/30/19 10:00 Plt Clumps, EDTA Not Reportable 08/30/19 10:00 Large Platelets Not Reportable 08/30/19 10:00 Giant Platelets Not Reportable 08/30/19 10:00 Platelet Satelliting Not Reportable 08/30/19 10:00 Plt Morphology Comment Not Reportable 08/30/19 10:00 RBC Morphology Not Reportable 08/30/19 10:00 Dimorphic RBCs Not Reportable 08/30/19 10:00 Polychromasia Not Reportable 08/30/19 10:00 Hypochromasia Few 08/30/19 10:00 Poikilocytosis Not Reportable 08/30/19 10:00 Anisocytosis 2+ 08/30/19 10:00 Microcytosis Not Reportable 08/30/19 10:00 Macrocytosis Few 08/30/19 10:00 Spherocytes Not Reportable 08/30/19 10:00 Pappenheimer Bodies Not Reportable 08/30/19 10:00 Sickle Cells Not Reportable 08/30/19 10:00 Target Cells 1+ 08/30/19 10:00 Tear Drop Cells Not Reportable 08/30/19 10:00 Ovalocytes Not Reportable 08/30/19 10:00 Helmet Cells Not Reportable 08/30/19 10:00 [place] Bodies Not Reportable 08/30/19 10:00 [place] Rings Not Reportable 08/30/19 10:00 [place] Cells Not Reportable 08/30/19 10:00 Bite Cells Not Reportable 08/30/19 10:00 Crenated Cell Not Reportable 08/30/19 10:00 Elliptocytes Not Reportable 08/30/19 10:00 Acanthocytes (Spur) Not Reportable 08/30/19 10:00 Rouleaux Not Reportable 08/30/19 10:00 Hemoglobin C Crystals Not Reportable 08/30/19 10:00 Schistocytes Not Reportable 08/30/19 10:00 Malaria parasites Not Reportable 08/30/19 10:00 Noel Bodies Not Reportable 08/30/19 10:00 Hem Pathologist Commnt No 08/30/19 10:00 PT 17.8 Sec. (12.2-14.9) H 08/24/19 04:07 INR 1.51 (0.87-1.13) H 08/24/19 04:07 APTT 31.8 Sec. (24.2-36.6) 08/22/19 12:39 Sodium 143 mmol/L (137-145) D 09/03/19 07:42 Potassium 3.2 mmol/L (3.6-5.0) L 09/03/19 07:42 Chloride 106.0 mmol/L (98-107) 09/03/19 07:42 Carbon Dioxide 27 mmol/L (22-30) 09/03/19 07:42 Anion Gap 13 mmol/L 09/03/19 07:42 BUN 21 mg/dL (9-20) H 09/03/19 07:42 Creatinine 0.8 mg/dL (0.8-1.5) 09/03/19 07:42 Estimated GFR > 60 ml/min 09/03/19 07:42 BUN/Creatinine Ratio 26 % 09/03/19 07:42 Glucose 181 mg/dL (75-100) H 09/03/19 07:42 POC Glucose 162 (70-105) H 09/03/19 18:21 Osmolality 351 Mosm/kg 08/25/19 09:58 Lactic Acid 1.60 mmol/L (0.7-2.0) 08/22/19 23:07 Calcium 8.1 mg/dL (8.4-10.2) L 09/03/19 07:42 Phosphorus 2.90 mg/dL (2.5-4.5) 09/03/19 07:42 Magnesium 2.00 mg/dL (1.7-2.3) 09/02/19 06:00 Iron 15 ug/dL (49-181) L 08/30/19 10:00 TIBC 209 mcg/dL (250-450) L 08/30/19 10:00 Ferritin 104.6 ng/mL (13.0-400.0) 08/30/19 10:00 Total Bilirubin 0.50 mg/dL (0.1-1.2) 09/03/19 07:42 Direct Bilirubin < 0.2 mg/dL (0-0.2) 09/03/19 07:42 Indirect Bilirubin 0.3 mg/dL 09/03/19 07:42 AST 42 units/L (5-40) H 09/03/19 07:42 ALT 38 units/L (7-56) 09/03/19 07:42 Alkaline Phosphatase 227 units/L (35-129) H 09/03/19 07:42 Ammonia 38.0 umol/L (25-60) 08/24/19 04:07 Troponin T < 0.010 ng/mL (0.00-0.029) 08/22/19 12:39 NT-Pro-B Natriuret Pep 1788 pg/mL (0-900) H 08/22/19 12:39 Total Protein 6.4 g/dL (6.3-8.2) 09/03/19 07:42 Albumin 2.6 g/dL (3.9-5) L 09/03/19 07:42 Albumin/Globulin Ratio 0.7 % 09/03/19 07:42 Lipase 18 units/L (13-60) 08/22/19 12:39 Vitamin B12 596.1 pg/mL (211-911) 08/30/19 10:00 Folate 18.44 ng/mL (7.3-26.0) 08/30/19 10:00 Urine Color Yellow (Yellow) 08/25/19 10:45 Urine Turbidity Clear (Clear) 08/25/19 10:45 Urine pH 6.0 (5.0-7.0) 08/25/19 10:45 Ur Specific [place] 1.012 (1.003-1.030) 08/25/19 10:45 Urine Protein <15 mg/dl mg/dL (Negative) 08/25/19 10:45 Urine Glucose (UA) Neg mg/dL (Negative) 08/25/19 10:45 Urine Ketones Neg mg/dL (Negative) 08/25/19 10:45 Urine Blood Sm (Negative) 08/25/19 10:45 Urine Nitrite Neg (Negative) 08/25/19 10:45 Urine Bilirubin Neg (Negative) 08/25/19 10:45 Urine Urobilinogen < 2.0 mg/dL (<2.0) 08/25/19 10:45 Ur Leukocyte Esterase Sm (Negative) 08/25/19 10:45 Urine WBC (Auto) 17.0 /HPF (0.0-6.0) H 08/25/19 10:45 Urine RBC (Auto) 7.0 /HPF (0.0-6.0) 08/25/19 10:45 Urine Bacteria (Auto) 1+ /HPF (Negative) 08/25/19 10:45 Urine Mucus Few /HPF 08/25/19 10:45 Urine Osmolality 455 Mosm/kg 08/25/19 10:45 Urine Creatinine 70.8 mg/dL (0.1-20.0) H 08/25/19 10:45 Urine Sodium 74 mmol/L 08/25/19 10:45 Blood Type O POSITIVE 08/22/19 12:39 Antibody Screen Negative 08/22/19 12:39 Crossmatch See Detail 08/22/19 12:39 Active Medications - Current Medications Current Medications: Generic Name Dose Route Start Last Admin Trade Name Freq PRN Reason Stop Dose Admin Lipase/Protease/Amylase 1 each 08/26/19 12:00 Pancreazpaloma [place] 10,500 Unit FEEDTUBE PRN PRN For Clogged Feeding Tube Dextrose 50 ml 08/28/19 07:56 D50w (25gm) Syringe IV Q30MIN PRN Hypoglycemia Ferrous Sulfate 308 mg 09/02/19 10:00 09/03/19 16:10 Ferrous Sulfate PO 308 mg QDAY KJ Administration Hydromorphone HCl 0.25 mg 08/31/19 13:03 09/03/19 16:09 Dilaudid IV 0.25 mg Q6H PRN Administration Pain , Severe (7-10) Dextrose 1,000 mls @ 125 mls/hr 09/02/19 09:00 09/03/19 14:30 D5w IV 125 mls/hr DIRECT KJ Administration Insulin Human Lispro 0 unit 08/28/19 08:00 09/03/19 13:07 Humalog SUB-Q Not Given Q6HR KJ Protocol Lactulose 20 gm 08/27/19 14:00 09/03/19 15:03 Cephulac PO Not Given Q8HR KJ Lansoprazole 30 mg 08/27/19 10:00 09/03/19 10:56 Prevacid Solutab FEEDTUBE Not Given BID KJ Nadolol 20 mg 08/27/19 11:00 09/03/19 16:19 Corgard PO 20 mg QDAY KJ Administration Simple Syrup 15 ml 08/26/19 12:00 Simple Syrup FEEDTUBE PRN PRN Hypoglycemia Simple Syrup 30 ml 08/26/19 12:00 Simple Syrup FEEDTUBE PRN PRN Hypoglycemia Sodium Bicarbonate 325 mg 08/26/19 12:00 Sodium Bicarbonate FEEDTUBE PRN PRN For Clogged Feeding Tube Sodium Chloride 10 ml 08/22/19 22:00 09/03/19 11:00 Sodium Chloride Flush Syringe 10 Ml IV 10 ml BID KJ Administration Sodium Chloride 10 ml 08/22/19 21:11 08/30/19 10:08 Sodium Chloride Flush Syringe 10 Ml IV 10 ml PRN PRN Administration LINE FLUSH Nutrition/Malnutrition Assess - Dietary Evaluation Nutrition/Malnutrition Findings: Nutrition Notes Start: 08/26/19 10:54 Freq: Status: Active Protocol: Document 09/03/19 11:16 CC (Rec: 09/03/19 11:28 CC [id number]) Co-Sign 09/03/19 11:16 LP Nutrition Notes Initial or Follow up Reassessment Current Diagnosis Acute Kidney Injury,Diabetes, Hypertension Other Pertinent Diagnosis Cirrhosis, hepatic encephalopathy, s/p BKA Current Diet npo Labs/Tests K 3.2 Pertinent Medications reviewed Height 6 ft Weight 83.4 kg [place] Body Weight (kg) 80.90 BMI 24.9 Weight change and time frame Current wt obtained from I&O Weight Status Appropriate Subjective/Other Information f/u. Pt was recieving TF at previous Osmolite 1.5 at goal rate of 60ml/hr after being NPO. Pt continues with NG feedings. Possible hospice Percent of energy/protein needs met: 100/100% Burn Absent Trauma Absent GI Symptoms None Food Allergy No Minimum of two criteria Yes Muscle Mass Mild Depletion (non-severe) Fluid Accumulation Mild (non-severe) #2 Nutrition Diagnosis Malnutrition Etiology cirrhosis As Evidenced by Signs and Symptoms temporal and orbital wasting, statement that pt has mild ascites Diagnosis Progress(for reassessment Continues documentation) #1 Nutrition Diagnosis Inadequate oral intake Diagnosis Progress(for reassessment Continues documentation) Is patient on ventilator? No Is Patient Ambulatory and/or Out of Bed No REE-([facility]. Jeks-confined to bed) 548 Calculation [facility] for Recommendations [facility] Additional Notes PRO: 83-100g/day (1.0-1.2g/kg) Fluid: 1ml/kcal Nutrition Intervention Nutrition Support: Osmolite 1.5 at 60 ml/hr (goal rate) Water flush of 185 mL q 4 hours Kcal 2,160 Protein (gm) 90 Fluid (mL) 1,097 Goal #1 TF tolerance Goal #2 Continue to meet at least 75% of calorie and protein needs via TF Anticipated Discharge Needs: TF Follow-Up By: 09/06/19 Additional Comments Follow for TF POC, TF tolerance
[2019-09-03] MEDS ORDERED: POTASSIUM CHLORIDE 20 MEQ PACKET FEEDTUBE ONE (20:59)
[2019-09-04] MEDS: INSULIN LISPRO 100 UNIT/ML SUB-Q SCH ×4 (00:27→17:53)
[2019-09-04] MEDS: LACTULOSE 20 GM/30 ML ORAL LIQD PO SCH ×3 (06:00→23:40)
[2019-09-04] MEDS: DEXTROSE 5% IN WATER 1,000 ML IV SCH ×2 (06:56→13:29)
[2019-09-04 07:04] LABS: Basophils # (Auto) 0.1 K/mm3 (0.0-0.1); Eosinophils # (Auto) 0.7 K/mm3 (0.0-0.4); Eosinophils % (Auto) 6.6 % (0.0-4.3); Monocytes # (Auto) 1.3 K/mm3 (0.0-0.8); Monocytes % (Auto) 12.3 % (0.0-7.3)
[2019-09-04 07:06] LABS: Hematocrit 28.4 % (35.5-45.6); Hemoglobin 8.7 gm/dl (11.8-15.2); Mean Corpuscular HGB Conc 31 % (32-34); Mean Corpuscular Volume 87 fl (84-94); Red Blood Count 3.27 M/mm3 (3.65-5.03); Red Cell Distribution Width 23.3 % (13.2-15.2)
[2019-09-04 07:07] LABS: Basophils % (Auto) 0.6 % (0.0-1.8); Lymphocytes # (Auto) 1.6 K/mm3 (1.2-5.4); Lymphocytes % (Auto) 14.6 % (13.4-35.0); Platelet Count 229 K/mm3 (140-440)
[2019-09-04 07:27] LABS: BUN/Creatinine Ratio 25; Blood Urea Nitrogen 15 mg/dL (9-20); Calcium 8.1 mg/dL (8.4-10.2); Hemolysis Index 0
--- NOTE | 2019-09-04 09:32 | Progress Note ---
Assessment and Plan 1. Acute kidney injury: LAVONNE in the setting of obstructive uropathy +/- vasomotor insult. CT abdomen showed obstructive nephropathy. S/p ferguson catheter. Renal function is better. Monitor renal function. Avoid nephrotoxic agents. Meds dosage based on GFR. 2. FEN: Hypernatremia, continue IV D5W. Hypokalemia, monitor and replete K as needed. Metabolic acidosis, improved. Replete Phos. Monitor lytes. 3. GI bleed/hematemesis: H/o Esophageal varices. 4. H/o Cirrhosis. 5. Hepatic encephalopathy. 6. Acute blood loss Anemia: POA. S/p PRBC. 7. Dysphagia: Followed by Gen Surgery for PEG placement. Examination: General appearance: well-developed, appears stated age, no distress, NG tube noted, on mittens HEENT: ATNC, IBRAHIMA Neck: trachea midline Respiratory: Clear to Ascultation Heart: S1S2, regular, no murmur Gastrointestinal: normoactive bowel sounds, NT Integumentary: stasis changes R leg : Ferguson catheter Neurologic: able to move extremities, L sided weakness noted, aphasia Musculoskeletal: L BKA Subjective Date of service: 09/04/19 Principal diagnosis: high wbc Interval history: Patient was seen and examined at the bedside. Objective - Vital Signs Vital signs: Vital Signs - 12hr 09/03/19 09/04/19 23:07 05:59 Temperature 98.6 F 98.6 F Pulse Rate 79 77 Respiratory 18 17 Rate Blood Pressure 125/70 138/73 O2 Sat by Pulse 93 96 Oximetry - Lab 09/04/19 05:40 09/04/19 05:40 Most recent lab results Calcium 8.1 mg/dL (8.4-10.2) L 09/04/19 05:40 Phosphorus 2.40 mg/dL (2.5-4.5) L 09/04/19 05:40 Magnesium 1.70 mg/dL (1.7-2.3) 09/04/19 05:40 Urine Creatinine 70.8 mg/dL (0.1-20.0) H 08/25/19 10:45 Urine Sodium 74 mmol/L 08/25/19 10:45 Medications & Allergies - Medications Allergies/Adverse Reactions: Allergies No Known Allergies Allergy (Unverified 07/11/13 08:29) Home Medications: Home Medications Medication Instructions Recorded Confirmed Last Taken Type Apixaban [Eliquis] 5 mg PO BID 08/22/19 08/22/19 Unknown History Ascorbic Acid [Vitamin C] 500 mg PO Q12H 08/22/19 08/22/19 Unknown History AtorvaSTATin [Lipitor] 40 mg PO QHS 08/22/19 08/22/19 Unknown History Carvedilol [Coreg] 6.25 mg PO BID 08/22/19 08/22/19 Unknown History Dicyclomine [Bentyl] 20 mg PO QID PRN 08/22/19 08/22/19 Unknown History Docusate Sodium [Colace] 100 mg PO BID 08/22/19 08/22/19 Unknown History Flomax 0.4 mg PO QHS 08/22/19 08/22/19 Unknown History Folic Acid [Folvite] 1 mg PO QDAY 08/22/19 08/22/19 Unknown History HYDROcodone/APAP 5-325 [Leonard 1 each PO Q6HR PRN 08/22/19 08/22/19 Unknown History 5/325] Ibuprofen [Motrin] 600 mg PO Q8H PRN 08/22/19 08/22/19 Unknown History Lisinopril [Zestril TAB] 10 mg PO QDAY 08/22/19 08/22/19 Unknown History Loperamide [Imodium] 2 mg PO BID PRN 08/22/19 08/22/19 Unknown History Magnesium Hydroxide [Milk of 400 mg PO Q24HR PRN 08/22/19 08/22/19 Unknown History Magnesia] Melatonin 3 mg PO QHS 08/22/19 08/22/19 Unknown History Multivit with Minerals No.55 1 tab PO DAILY 08/22/19 08/22/19 Unknown History Pantoprazole [Protonix] 40 mg PO QDAY 08/22/19 08/22/19 Unknown History Sennosides/Docusate Sodium [Senna 1 each PO DAILY 08/22/19 08/22/19 Unknown History Plus Tablet] diphenhydrAMINE [Benadryl CAP] 25 mg PO Q6HR PRN 08/22/19 08/22/19 Unknown History Active Medications: Generic Name Dose Route Start Last Admin Trade Name Freq PRN Reason Stop Dose Admin Lipase/Protease/Amylase 1 each 08/26/19 12:00 Pancrekiara Solano 10,500 Unit FEEDTUBE PRN PRN For Clogged Feeding Tube Dextrose 50 ml 08/28/19 07:56 D50w (25gm) Syringe IV Q30MIN PRN Hypoglycemia Ferrous Sulfate 308 mg 09/02/19 10:00 09/03/19 16:10 Ferrous Sulfate PO 308 mg QDAY KJ Administration Hydromorphone HCl 0.25 mg 08/31/19 13:03 09/03/19 22:56 Dilaudid IV 0.25 mg Q6H PRN Administration Pain , Severe (7-10) Dextrose 1,000 mls @ 75 mls/hr 09/02/19 09:00 09/04/19 06:56 D5w IV 125 mls/hr DIRECT KJ Administration Insulin Human Lispro 0 unit 08/28/19 08:00 09/04/19 06:00 Humalog SUB-Q Not Given Q6HR KJ Protocol Lactulose 20 gm 08/27/19 14:00 09/04/19 06:00 Cephulac PO Not Given Q8HR KJ Lansoprazole 30 mg 08/27/19 10:00 09/03/19 22:58 Prevacid Solutab FEEDTUBE 30 mg BID KJ Administration Nadolol 20 mg 08/27/19 11:00 09/03/19 16:19 Corgard PO 20 mg QDAY KJ Administration Simple Syrup 15 ml 08/26/19 12:00 Simple Syrup FEEDTUBE PRN PRN Hypoglycemia Simple Syrup 30 ml 08/26/19 12:00 Simple Syrup FEEDTUBE PRN PRN Hypoglycemia Sodium Bicarbonate 325 mg 08/26/19 12:00 Sodium Bicarbonate FEEDTUBE PRN PRN For Clogged Feeding Tube Sodium Chloride 10 ml 08/22/19 22:00 09/03/19 23:26 Sodium Chloride Flush Syringe 10 Ml IV 10 ml BID KJ Administration Sodium Chloride 10 ml 08/22/19 21:11 08/30/19 10:08 Sodium Chloride Flush Syringe 10 Ml IV 10 ml PRN PRN Administration LINE FLUSH
--- NOTE | 2019-09-04 10:33 | XRay Report ---
ABDOMEN 1 VIEW(S) INDICATION / CLINICAL INFORMATION: DOBHOFF PLACEMENT. COMPARISON: 08/30/2019 FINDINGS: TUBES / LINES: Dobbhoff tube has been advanced with tip over the region of the duodenal bulb. BOWEL GAS PATTERN: No significant abnormality. FREE AIR / EXTRALUMINAL GAS: None seen. ADDITIONAL FINDINGS: Extensive postoperative change again noted in the abdomen. IMPRESSION: 1. DHT as above. Signer Name: Shade Lloyd MD Signed: 09/04/2019 10:29 AM Workstation Name: [id number]
[2019-09-04] MEDS ORDERED: PHOS-NAK POWDER PACKET FEEDTUBE ONE (10:35)
--- NOTE | 2019-09-04 10:46 | Progress Note ---
Assessment and Plan Assessment and plan: --Abnormal swallow eval; Speech Therapist recommend PEG placement Family, agreed for PEG placement GI evaluated ,recommend surgical placement of PEG Dr. Thomas surgeon evaluated the patient, planning to schedule next week --Hypernatremia; sodium level 152-143-141 Continue IV D5W, free water flushes via NG tube monitor electrolytes --Hepatic encephalopathy-Acute on chronic Continue lactulose, patient is more alert and awake today Supportive care. Ammonia levels improved to normal range --Complicated UTI; completed antibiotics Rocephin monitor off antibiotics --Sepsis secondary to complicated UTI; off antibiotics --Leukemoid reaction; probably secondary to UTI and acute GI bleeding Cultures negative to date --Acute kidney injury/ Vasomotor nephropathy/obstructive uropathy/ Secondary to urinary retention ,Improved --History of left AKA; supportive care --History of CVA with residual weakness; Physical therapy supportive care --Coagulopathy; secondary to acidosis Closely monitor for bleeding --Cirrhosis liver. History VARICES; No active GI bleeding closely monitor --DVT prophylaxis; SCDs No pharmacologic anticoagulation in view of coagulopathy Monitor clinically and adjust management as needed --DO NOT RESUSCITATE status --Patient is critically ill with very poor prognosis Recommend hospice, Hospice consult Plan of care reviewed in detail with the patient's daughter over the phone PEG procedure next week Discharge planning patient will return to SNF when medically stable History Interval history: Patient seen and examined medical records reviewed Patient is minimally communicative receiving tube feeding No new complaints vital signs stable PEG placement next week per surgery Hospitalist Physical - Constitutional Vitals: Temp Pulse Resp BP Pulse Ox 98.6 F 77 17 138/73 96 09/04/19 05:59 09/04/19 05:59 09/04/19 05:59 09/04/19 05:59 09/04/19 05:59 General appearance: Present: mild distress, well-nourished, other (noncommunicative) - EENT Eyes: Present: PERRL, EOM intact - Neck Neck: Present: supple, normal ROM - Respiratory Respiratory effort: normal Respiratory: bilateral: diminished, negative: rales, rhonchi, wheezing - Cardiovascular Rhythm: regular Heart Sounds: Present: S1 & S2 - Extremities Extremities: no ischemia, No edema, abnormal (left BKA) - Abdominal General gastrointestinal: soft, non-tender, non-distended, normal bowel sounds - Integumentary Integumentary: Present: clear, warm - Psychiatric Psychiatric: appropriate mood/affect, cooperative - Neurologic Neurologic: CNII-XII intact, moves all extremities Results - Labs CBC & Chem 7: 09/04/19 05:40 09/04/19 05:40 Labs: Laboratory Last Values WBC 10.7 K/mm3 (4.5-11.0) 09/04/19 05:40 RBC 3.27 M/mm3 (3.65-5.03) L 09/04/19 05:40 Hgb 8.7 gm/dl (11.8-15.2) L 09/04/19 05:40 Hct 28.4 % (35.5-45.6) L 09/04/19 05:40 MCV 87 fl (84-94) 09/04/19 05:40 MCH 27 pg (28-32) L 09/04/19 05:40 MCHC 31 % (32-34) L 09/04/19 05:40 RDW 23.3 % (13.2-15.2) H 09/04/19 05:40 Plt Count 229 K/mm3 (140-440) 09/04/19 05:40 Lymph % (Auto) 14.6 % (13.4-35.0) 09/04/19 05:40 Gem % (Auto) 12.3 % (0.0-7.3) H 09/04/19 05:40 Eos % (Auto) 6.6 % (0.0-4.3) H 09/04/19 05:40 Baso % (Auto) 0.6 % (0.0-1.8) 09/04/19 05:40 Lymph # 1.6 K/mm3 (1.2-5.4) 09/04/19 05:40 Gem # 1.3 K/mm3 (0.0-0.8) H 09/04/19 05:40 Eos # 0.7 K/mm3 (0.0-0.4) H 09/04/19 05:40 Baso # 0.1 K/mm3 (0.0-0.1) 09/04/19 05:40 Add Manual Diff Complete 08/30/19 10:00 Total Counted 100 08/30/19 10:00 Seg Neutrophils % 65.9 % (40.0-70.0) 09/04/19 05:40 Seg Neuts % (Manual) 85.0 % (40.0-70.0) H 08/30/19 10:00 Band Neutrophils % 0 % 08/30/19 10:00 Lymphocytes % (Manual) 2.0 % (13.4-35.0) L 08/30/19 10:00 Reactive Lymphs % (Man) 0 % 08/30/19 10:00 Monocytes % (Manual) 10.0 % (0.0-7.3) H 08/30/19 10:00 Eosinophils % (Manual) 2.0 % (0.0-4.3) 08/30/19 10:00 Basophils % (Manual) 0 % (0.0-1.8) 08/30/19 10:00 Metamyelocytes % 0 % 08/30/19 10:00 Myelocytes % 1.0 % 08/30/19 10:00 Promyelocytes % 0 % 08/30/19 10:00 Blast Cells % 0 % 08/30/19 10:00 Nucleated RBC % Not Reportable 08/30/19 10:00 Seg Neutrophils # 7.1 K/mm3 (1.8-7.7) 09/04/19 05:40 Seg Neutrophils # Man 13.3 K/mm3 (1.8-7.7) H 08/30/19 10:00 Band Neutrophils # 0.0 K/mm3 08/30/19 10:00 Lymphocytes # (Manual) 0.3 K/mm3 (1.2-5.4) L 08/30/19 10:00 Abs React Lymphs (Man) 0.0 K/mm3 08/30/19 10:00 Monocytes # (Manual) 1.6 K/mm3 (0.0-0.8) H 08/30/19 10:00 Eosinophils # (Manual) 0.3 K/mm3 (0.0-0.4) 08/30/19 10:00 Basophils # (Manual) 0.0 K/mm3 (0.0-0.1) 08/30/19 10:00 Metamyelocytes # 0.0 K/mm3 08/30/19 10:00 Myelocytes # 0.2 K/mm3 08/30/19 10:00 Promyelocytes # 0.0 K/mm3 08/30/19 10:00 Blast Cells # 0.0 K/mm3 08/30/19 10:00 WBC Morphology Not Reportable 08/30/19 10:00 Hypersegmented Neuts Not Reportable 08/30/19 10:00 Hyposegmented Neuts Not Reportable 08/30/19 10:00 Hypogranular Neuts Not Reportable 08/30/19 10:00 Smudge Cells Not Reportable 08/30/19 10:00 Toxic Granulation Not Reportable 08/30/19 10:00 Toxic Vacuolation Not Reportable 08/30/19 10:00 Dohle Bodies Not Reportable 08/30/19 10:00 Pelger-Huet Anomaly Not Reportable 08/30/19 10:00 Ramonita Rods Not Reportable 08/30/19 10:00 Platelet Estimate Consistent w auto 08/30/19 10:00 Clumped Platelets Not Reportable 08/30/19 10:00 Plt Clumps, EDTA Not Reportable 08/30/19 10:00 Large Platelets Not Reportable 08/30/19 10:00 Giant Platelets Not Reportable 08/30/19 10:00 Platelet Satelliting Not Reportable 08/30/19 10:00 Plt Morphology Comment Not Reportable 08/30/19 10:00 RBC Morphology Not Reportable 08/30/19 10:00 Dimorphic RBCs Not Reportable 08/30/19 10:00 Polychromasia Not Reportable 08/30/19 10:00 Hypochromasia Few 08/30/19 10:00 Poikilocytosis Not Reportable 08/30/19 10:00 Anisocytosis 2+ 08/30/19 10:00 Microcytosis Not Reportable 08/30/19 10:00 Macrocytosis Few 08/30/19 10:00 Spherocytes Not Reportable 08/30/19 10:00 Pappenheimer Bodies Not Reportable 08/30/19 10:00 Sickle Cells Not Reportable 08/30/19 10:00 Target Cells 1+ 08/30/19 10:00 Tear Drop Cells Not Reportable 08/30/19 10:00 Ovalocytes Not Reportable 08/30/19 10:00 Helmet Cells Not Reportable 08/30/19 10:00 [place] Bodies Not Reportable 08/30/19 10:00 [place] Rings Not Reportable 08/30/19 10:00 Freddy Cells Not Reportable 08/30/19 10:00 Bite Cells Not Reportable 08/30/19 10:00 Crenated Cell Not Reportable 08/30/19 10:00 Elliptocytes Not Reportable 08/30/19 10:00 Acanthocytes (Spur) Not Reportable 08/30/19 10:00 Rouleaux Not Reportable 08/30/19 10:00 Hemoglobin C Crystals Not Reportable 08/30/19 10:00 Schistocytes Not Reportable 08/30/19 10:00 Malaria parasites Not Reportable 08/30/19 10:00 Noel Bodies Not Reportable 08/30/19 10:00 Hem Pathologist Commnt No 08/30/19 10:00 PT 17.8 Sec. (12.2-14.9) H 08/24/19 04:07 INR 1.51 (0.87-1.13) H 08/24/19 04:07 APTT 31.8 Sec. (24.2-36.6) 08/22/19 12:39 Sodium 141 mmol/L (137-145) 09/04/19 05:40 Potassium 4.1 mmol/L (3.6-5.0) D 09/04/19 05:40 Chloride 105.0 mmol/L (98-107) 09/04/19 05:40 Carbon Dioxide 28 mmol/L (22-30) 09/04/19 05:40 Anion Gap 12 mmol/L 09/04/19 05:40 BUN 15 mg/dL (9-20) 09/04/19 05:40 Creatinine 0.6 mg/dL (0.8-1.5) L 09/04/19 05:40 Estimated GFR > 60 ml/min 09/04/19 05:40 BUN/Creatinine Ratio 25 % 09/04/19 05:40 Glucose 115 mg/dL (75-100) H 09/04/19 05:40 POC Glucose 127 (70-105) H 09/04/19 06:05 Osmolality 351 Mosm/kg 08/25/19 09:58 Lactic Acid 1.60 mmol/L (0.7-2.0) 08/22/19 23:07 Calcium 8.1 mg/dL (8.4-10.2) L 09/04/19 05:40 Phosphorus 2.40 mg/dL (2.5-4.5) L 09/04/19 05:40 Magnesium 1.70 mg/dL (1.7-2.3) 09/04/19 05:40 Iron 15 ug/dL (49-181) L 08/30/19 10:00 TIBC 209 mcg/dL (250-450) L 08/30/19 10:00 Ferritin 104.6 ng/mL (13.0-400.0) 08/30/19 10:00 Total Bilirubin 0.50 mg/dL (0.1-1.2) 09/03/19 07:42 Direct Bilirubin < 0.2 mg/dL (0-0.2) 09/03/19 07:42 Indirect Bilirubin 0.3 mg/dL 09/03/19 07:42 AST 42 units/L (5-40) H 09/03/19 07:42 ALT 38 units/L (7-56) 09/03/19 07:42 Alkaline Phosphatase 227 units/L (35-129) H 09/03/19 07:42 Ammonia 38.0 umol/L (25-60) 08/24/19 04:07 Troponin T < 0.010 ng/mL (0.00-0.029) 08/22/19 12:39 NT-Pro-B Natriuret Pep 1788 pg/mL (0-900) H 08/22/19 12:39 Total Protein 6.4 g/dL (6.3-8.2) 09/03/19 07:42 Albumin 2.6 g/dL (3.9-5) L 09/03/19 07:42 Albumin/Globulin Ratio 0.7 % 09/03/19 07:42 Lipase 18 units/L (13-60) 08/22/19 12:39 Vitamin B12 596.1 pg/mL (211-911) 08/30/19 10:00 Folate 18.44 ng/mL (7.3-26.0) 08/30/19 10:00 Urine Color Yellow (Yellow) 08/25/19 10:45 Urine Turbidity Clear (Clear) 08/25/19 10:45 Urine pH 6.0 (5.0-7.0) 08/25/19 10:45 Ur Specific Sch[place]ever 1.012 (1.003-1.030) 08/25/19 10:45 Urine Protein <15 mg/dl mg/dL (Negative) 08/25/19 10:45 Urine Glucose (UA) Neg mg/dL (Negative) 08/25/19 10:45 Urine Ketones Neg mg/dL (Negative) 08/25/19 10:45 Urine Blood Sm (Negative) 08/25/19 10:45 Urine Nitrite Neg (Negative) 08/25/19 10:45 Urine Bilirubin Neg (Negative) 08/25/19 10:45 Urine Urobilinogen < 2.0 mg/dL (<2.0) 08/25/19 10:45 Ur Leukocyte Esterase Sm (Negative) 08/25/19 10:45 Urine WBC (Auto) 17.0 /HPF (0.0-6.0) H 08/25/19 10:45 Urine RBC (Auto) 7.0 /HPF (0.0-6.0) 08/25/19 10:45 Urine Bacteria (Auto) 1+ /HPF (Negative) 08/25/19 10:45 Urine Mucus Few /HPF 08/25/19 10:45 Urine Osmolality 455 Mosm/kg 08/25/19 10:45 Urine Creatinine 70.8 mg/dL (0.1-20.0) H 08/25/19 10:45 Urine Sodium 74 mmol/L 08/25/19 10:45 Blood Type O POSITIVE 08/22/19 12:39 Antibody Screen Negative 08/22/19 12:39 Crossmatch See Detail 08/22/19 12:39 Active Medications - Current Medications Current Medications: Generic Name Dose Route Start Last Admin Trade Name Nikunjq PRN Reason Stop Dose Admin Lipase/Protease/Amylase 1 each 08/26/19 12:00 Pancrekiara Solano 10,500 Unit FEEDTUBE PRN PRN For Clogged Feeding Tube Dextrose 50 ml 08/28/19 07:56 D50w (25gm) Syringe IV Q30MIN PRN Hypoglycemia Ferrous Sulfate 308 mg 09/02/19 10:00 09/03/19 16:10 Ferrous Sulfate PO 308 mg QDAY KJ Administration Hydromorphone HCl 0.25 mg 08/31/19 13:03 09/03/19 22:56 Dilaudid IV 0.25 mg Q6H PRN Administration Pain , Severe (7-10) Dextrose 1,000 mls @ 75 mls/hr 09/04/19 11:00 D5w IV DIRECT KJ Insulin Human Lispro 0 unit 08/28/19 08:00 09/04/19 06:00 Humalog SUB-Q Not Given Q6HR [facility] Protocol Lactulose 20 gm 08/27/19 14:00 09/04/19 06:00 Cephulac PO Not Given Q8HR KJ Lansoprazole 30 mg 08/27/19 10:00 09/03/19 22:58 Prevacid Solutab FEEDTUBE 30 mg BID KJ Administration Nadolol 20 mg 08/27/19 11:00 09/03/19 16:19 Corgard PO 20 mg QDAY KJ Administration Potassium Phos/Sodium Phos 2 each 09/04/19 10:35 Phos-Nak FEEDTUBE 09/04/19 10:36 ONCE ONE Simple Syrup 15 ml 08/26/19 12:00 Simple Syrup FEEDTUBE PRN PRN Hypoglycemia Simple Syrup 30 ml 08/26/19 12:00 Simple Syrup FEEDTUBE PRN PRN Hypoglycemia Sodium Bicarbonate 325 mg 08/26/19 12:00 Sodium Bicarbonate FEEDTUBE PRN PRN For Clogged Feeding Tube Sodium Chloride 10 ml 08/22/19 22:00 09/03/19 23:26 Sodium Chloride Flush Syringe 10 Ml IV 10 ml BID KJ Administration Sodium Chloride 10 ml 08/22/19 21:11 08/30/19 10:08 Sodium Chloride Flush Syringe 10 Ml IV 10 ml PRN PRN Administration LINE FLUSH Nutrition/Malnutrition Assess - Dietary Evaluation Nutrition/Malnutrition Findings: Nutrition Notes Start: 08/26/19 10:54 Freq: Status: Active Protocol: Document 09/03/19 11:16 CC (Rec: 09/03/19 11:28 CC [email or web address]) Co-Sign 09/03/19 11:16 LP Nutrition Notes Initial or Follow up Reassessment Current Diagnosis Acute Kidney Injury,Diabetes, Hypertension Other Pertinent Diagnosis Cirrhosis, hepatic encephalopathy, s/p BKA Current Diet npo Labs/Tests K 3.2 Pertinent Medications reviewed Height 6 ft Weight 83.4 kg Granite Body Weight (kg) 80.90 BMI 24.9 Weight change and time frame Current wt obtained from I&O Weight Status Appropriate Subjective/Other Information f/u. Pt was recieving TF at previous Osmolite 1.5 at goal rate of 60ml/hr after being NPO. Pt continues with NG feedings. Possible hospice Percent of energy/protein needs met: 100/100% Burn Absent Trauma Absent GI Symptoms None Food Allergy No Minimum of two criteria Yes Muscle Mass Mild Depletion (non-severe) Fluid Accumulation Mild (non-severe) #2 Nutrition Diagnosis Malnutrition Etiology cirrhosis As Evidenced by Signs and Symptoms temporal and orbital wasting, statement that pt has mild ascites Diagnosis Progress(for reassessment Continues documentation) #1 Nutrition Diagnosis Inadequate oral intake Diagnosis Progress(for reassessment Continues documentation) Is patient on ventilator? No Is Patient Ambulatory and/or Out of Bed No REE-([facility]-confined to bed) 1998.548 Calculation Used for Recommendations [facility] Additional Notes PRO: 83-100g/day (1.0-1.2g/kg) Fluid: 1ml/kcal Nutrition Intervention Nutrition Support: Osmolite 1.5 at 60 ml/hr (goal rate) Water flush of 185 mL q 4 hours Kcal 2,160 Protein (gm) 90 Fluid (mL) 1,097 Goal #1 TF tolerance Goal #2 Continue to meet at least 75% of calorie and protein needs via TF Anticipated Discharge Needs: TF Follow-Up By: 09/06/19 Additional Comments Follow for TF POC, TF tolerance
--- NOTE | 2019-09-04 12:46 | XRay Report ---
ABDOMEN 1 VIEW(S) INDICATION / CLINICAL INFORMATION: DOBHOFF PULLED BACK. COMPARISON: Earlier today FINDINGS: TUBES / LINES: Dobbhoff tube tip in the distal stomach region. BOWEL GAS PATTERN: No significant abnormality. FREE AIR / EXTRALUMINAL GAS: None seen. ADDITIONAL FINDINGS: No significant additional findings. IMPRESSION: 1. DHT as above. Signer Name: Shade Lloyd MD Signed: 09/04/2019 12:42 PM Workstation Name: [id number]
[2019-09-04] MEDS: NADOLOL 20 MG TAB PO SCH (13:15)
[2019-09-04] MEDS: LANSOPRAZOLE 30 MG SOLUTAB FEEDTUBE SCH ×2 (13:15→23:40)
[2019-09-04] MEDS: FERROUS SULFATE 308 MG (62mg Elemental Iron) / 7 ML ELIXIR PO SCH (13:15)
[2019-09-04] MEDS ORDERED: PHOS-NAK POWDER PACKET FEEDTUBE NR (13:30)
--- NOTE | 2019-09-04 15:10 | Hem/Onc Progress Note ---
Assessment and Plan 1. Leukocytosis, likely reactive. Predominant neutrophil, anemia. MCV is normal. We will do deficiency investigations. 2. Platelet count is normal. 3. Electrolyte abnormality. 4. History of gastrointestinal bleed. 5. Mention of hepatic encephalopathy. 6. We will observe the trend of white cell count and follow the trend of platelet count. h/o CVA NGT h/o cirrhosis - CT in aug 2019 - no mention of same s iron low - oral iron trial b12 - folate normal wbc better - follow as per RN - PEG eval anemia - hb at one time was 6.7 - Patient Problems (1) Leukocytosis Current Visit: No Status: Acute Qualifiers: Leukocytosis type: leukemoid reaction Qualified Code(s): D72.823 - Leukemoid reaction Subjective Date of service: 09/04/19 Principal diagnosis: high wbc Interval history: eval for PEG Objective - Exam Narrative Exam: Pain - none General appearance - awake - NGT Performance status complete dependence Eyes - no icterus ENT - NGT LNs cervical not palpable Neck - no LN Respiratory Normal Breath sounds - CTA anteriorly CVS S1 S2 + Extremities no edema General GI Soft Rectal deferred male - deferred Skin warm Musculoskeletal h/o CVA Neurologically awake - slurred speech - h/o CVA - Constitutional Vitals: Last Vital Signs Temp 97.8 F 09/04/19 11:18 Pulse 73 09/04/19 11:18 Resp 18 09/04/19 11:18 BP 136/71 09/04/19 11:18 Pulse Ox 94 09/04/19 11:18 - Labs Lab Results: Laboratory Results - last 24 hr 09/03/19 09/03/19 09/04/19 13:14 18:21 00:10 WBC RBC Hgb Hct MCV MCH MCHC RDW Plt Count Lymph % (Auto) [place] % (Auto) Eos % (Auto) Baso % (Auto) Lymph # [place] # Eos # Baso # Seg Neutrophils % Seg Neutrophils # Sodium Potassium Chloride Carbon Dioxide Anion Gap BUN Creatinine Estimated GFR BUN/Creatinine Ratio Glucose POC Glucose 147 H 162 H 126 H Calcium Phosphorus Magnesium 09/04/19 09/04/19 09/04/19 05:40 05:40 06:05 WBC 10.7 RBC 3.27 L Hgb 8.7 L Hct 28.4 L MCV 87 MCH 27 L MCHC 31 L RDW 23.3 H Plt Count 229 Lymph % (Auto) 14.6 [place] % (Auto) 12.3 H Eos % (Auto) 6.6 H Baso % (Auto) 0.6 Lymph # 1.6 [place] # 1.3 H Eos # 0.7 H Baso # 0.1 Seg Neutrophils % 65.9 Seg Neutrophils # 7.1 Sodium 141 Potassium 4.1 D Chloride 105.0 Carbon Dioxide 28 Anion Gap 12 BUN 15 Creatinine 0.6 L Estimated GFR > 60 BUN/Creatinine Ratio 25 Glucose 115 H POC Glucose 127 H Calcium 8.1 L Phosphorus 2.40 L Magnesium 1.70 09/04/19 11:15 WBC RBC Hgb Hct MCV MCH MCHC RDW Plt Count Lymph % (Auto) [place] % (Auto) Eos % (Auto) Baso % (Auto) Lymph # [place] # Eos # Baso # Seg Neutrophils % Seg Neutrophils # Sodium Potassium Chloride Carbon Dioxide Anion Gap BUN Creatinine Estimated GFR BUN/Creatinine Ratio Glucose POC Glucose 143 H Calcium Phosphorus Magnesium Medications & Allergies - Medications Allergies/Adverse Reactions: Allergies No Known Allergies Allergy (Unverified 07/11/13 08:29) Home Medications: Home Medications Medication Instructions Recorded Confirmed Last Taken Type Apixaban [Eliquis] 5 mg PO BID 08/22/19 08/22/19 Unknown History Ascorbic Acid [Vitamin C] 500 mg PO Q12H 08/22/19 08/22/19 Unknown History AtorvaSTATin [Lipitor] 40 mg PO QHS 08/22/19 08/22/19 Unknown History Carvedilol [Coreg] 6.25 mg PO BID 08/22/19 08/22/19 Unknown History Dicyclomine [Bentyl] 20 mg PO QID PRN 08/22/19 08/22/19 Unknown History Docusate Sodium [Colace] 100 mg PO BID 08/22/19 08/22/19 Unknown History Flomax 0.4 mg PO QHS 08/22/19 08/22/19 Unknown History Folic Acid [Folvite] 1 mg PO QDAY 08/22/19 08/22/19 Unknown History HYDROcodone/APAP 5-325 [[place] 1 each PO Q6HR PRN 08/22/19 08/22/19 Unknown History 5/325] Ibuprofen [Motrin] 600 mg PO Q8H PRN 08/22/19 08/22/19 Unknown History Lisinopril [Zestril TAB] 10 mg PO QDAY 08/22/19 08/22/19 Unknown History Loperamide [Imodium] 2 mg PO BID PRN 08/22/19 08/22/19 Unknown History Magnesium Hydroxide [Milk of 400 mg PO Q24HR PRN 08/22/19 08/22/19 Unknown History Magnesia] Melatonin 3 mg PO QHS 08/22/19 08/22/19 Unknown History Multivit with Minerals No.55 1 tab PO DAILY 08/22/19 08/22/19 Unknown History Pantoprazole [Protonix] 40 mg PO QDAY 08/22/19 08/22/19 Unknown History Sennosides/Docusate Sodium [Senna 1 each PO DAILY 08/22/19 08/22/19 Unknown History Plus Tablet] diphenhydrAMINE [Benadryl CAP] 25 mg PO Q6HR PRN 08/22/19 08/22/19 Unknown History Active Medications: Generic Name Dose Route Start Last Admin Trade Name Nikunjq PRN Reason Stop Dose Admin Lipase/Protease/Amylase 1 each 08/26/19 12:00 Pancrekiara Solano 10,500 Unit FEEDTUBE PRN PRN For Clogged Feeding Tube Dextrose 50 ml 08/28/19 07:56 D50w (25gm) Syringe IV Q30MIN PRN Hypoglycemia Ferrous Sulfate 308 mg 09/02/19 10:00 09/04/19 13:15 Ferrous Sulfate PO 308 mg QDAY KJ Administration Hydromorphone HCl 0.25 mg 08/31/19 13:03 09/03/19 22:56 Dilaudid IV 0.25 mg Q6H PRN Administration Pain , Severe (7-10) Dextrose 1,000 mls @ 75 mls/hr 09/04/19 11:00 09/04/19 13:29 D5w IV 75 mls/hr DIRECT KJ Administration Insulin Human Lispro 0 unit 08/28/19 08:00 09/04/19 13:33 Humalog SUB-Q Not Given Q6HR [facility] Protocol Lactulose 20 gm 08/27/19 14:00 09/04/19 13:34 Cephulac PO 20 gm Q8HR KJ Administration Lansoprazole 30 mg 08/27/19 10:00 09/04/19 13:15 Prevacid Solutab FEEDTUBE 30 mg BID KJ Administration Nadolol 20 mg 08/27/19 11:00 09/04/19 13:15 Corgard PO 20 mg QDAY KJ Administration Oxycodone/Acetaminophen 1 tab 09/04/19 14:40 Percocet 5/325 PO Q6H PRN Pain, Moderate (4-6) Simple Syrup 15 ml 08/26/19 12:00 Simple Syrup FEEDTUBE PRN PRN Hypoglycemia Simple Syrup 30 ml 08/26/19 12:00 Simple Syrup FEEDTUBE PRN PRN Hypoglycemia Sodium Bicarbonate 325 mg 08/26/19 12:00 Sodium Bicarbonate FEEDTUBE PRN PRN For Clogged Feeding Tube Sodium Chloride 10 ml 08/22/19 22:00 09/04/19 13:15 Sodium Chloride Flush Syringe 10 Ml IV 10 ml BID KJ Administration Sodium Chloride 10 ml 08/22/19 21:11 08/30/19 10:08 Sodium Chloride Flush Syringe 10 Ml IV 10 ml PRN PRN Administration LINE FLUSH
[2019-09-04] MEDS: oxyCODONE /ACETAMINOPHEN 5-325MG TAB PO PRN (16:11)
[2019-09-05] MEDS: INSULIN LISPRO 100 UNIT/ML SUB-Q SCH ×4 (00:22→18:50)
[2019-09-05 06:08] LABS: BUN/Creatinine Ratio 19; Blood Urea Nitrogen 13 mg/dL (9-20); Calcium 7.9 mg/dL (8.4-10.2); Hemolysis Index 0
[2019-09-05] MEDS: LACTULOSE 20 GM/30 ML ORAL LIQD PO SCH ×3 (06:31→22:09)
[2019-09-05] MEDS: DEXTROSE 5% IN WATER 1,000 ML IV SCH (06:34)
--- NOTE | 2019-09-05 09:31 | Progress Note ---
Assessment and Plan 1. Acute kidney injury: LAVONNE in the setting of obstructive uropathy +/- vasomotor insult. CT abdomen showed obstructive nephropathy. S/p ferguson catheter. Renal function is better. Monitor renal function. Avoid nephrotoxic agents. Meds dosage based on GFR. 2. FEN: Hypernatremia, continue IV D5W. Hypokalemia, monitor and replete K as needed. Metabolic acidosis, improved. Replete Phos. Monitor lytes. 3. GI bleed/hematemesis: H/o Esophageal varices. 4. H/o Cirrhosis. 5. Hepatic encephalopathy. 6. Acute blood loss Anemia: POA. S/p PRBC. 7. Dysphagia: Followed by Gen Surgery for PEG placement. Will sign off. Examination: General appearance: well-developed, appears stated age, no distress, NG tube noted, on mittens HEENT: ATNC, IBRAHIMA Neck: trachea midline Respiratory: Clear to Ascultation Heart: S1S2, regular, no murmur Gastrointestinal: normoactive bowel sounds, NT Integumentary: stasis changes R leg : Ferguson catheter Neurologic: able to move extremities, L sided weakness noted, aphasia Musculoskeletal: L BKA Subjective Date of service: 09/05/19 Principal diagnosis: high wbc Interval history: Patient was seen and examined at the bedside. Objective - Vital Signs Vital signs: Vital Signs - 12hr 09/04/19 09/05/19 22:00 04:57 Temperature 97.6 F Pulse Rate 76 Respiratory 28 H Rate Blood Pressure 116/57 - Lab 09/04/19 05:40 09/05/19 05:35 Most recent lab results Calcium 7.9 mg/dL (8.4-10.2) L 09/05/19 05:35 Phosphorus 2.40 mg/dL (2.5-4.5) L 09/05/19 05:35 Magnesium 1.70 mg/dL (1.7-2.3) 09/04/19 05:40 Urine Creatinine 70.8 mg/dL (0.1-20.0) H 08/25/19 10:45 Urine Sodium 74 mmol/L 08/25/19 10:45 Medications & Allergies - Medications Allergies/Adverse Reactions: Allergies No Known Allergies Allergy (Unverified 07/11/13 08:29) Home Medications: Home Medications Medication Instructions Recorded Confirmed Last Taken Type Apixaban [Eliquis] 5 mg PO BID 08/22/19 08/22/19 Unknown History Ascorbic Acid [Vitamin C] 500 mg PO Q12H 08/22/19 08/22/19 Unknown History AtorvaSTATin [Lipitor] 40 mg PO QHS 08/22/19 08/22/19 Unknown History Carvedilol [Coreg] 6.25 mg PO BID 08/22/19 08/22/19 Unknown History Dicyclomine [Bentyl] 20 mg PO QID PRN 08/22/19 08/22/19 Unknown History Docusate Sodium [Colace] 100 mg PO BID 08/22/19 08/22/19 Unknown History Flomax 0.4 mg PO QHS 08/22/19 08/22/19 Unknown History Folic Acid [Folvite] 1 mg PO QDAY 08/22/19 08/22/19 Unknown History HYDROcodone/APAP 5-325 [[place] 1 each PO Q6HR PRN 08/22/19 08/22/19 Unknown Hist ory 5/325] Ibuprofen [Motrin] 600 mg PO Q8H PRN 08/22/19 08/22/19 Unknown History Lisinopril [Zestril TAB] 10 mg PO QDAY 08/22/19 08/22/19 Unknown History Loperamide [Imodium] 2 mg PO BID PRN 08/22/19 08/22/19 Unknown History Magnesium Hydroxide [Milk of 400 mg PO Q24HR PRN 08/22/19 08/22/19 Unknown History Magnesia] Melatonin 3 mg PO QHS 08/22/19 08/22/19 Unknown History Multivit with Minerals No.55 1 tab PO DAILY 08/22/19 08/22/19 Unknown History Pantoprazole [Protonix] 40 mg PO QDAY 08/22/19 08/22/19 Unknown History Sennosides/Docusate Sodium [Senna 1 each PO DAILY 08/22/19 08/22/19 Unknown History Plus Tablet] diphenhydrAMINE [Benadryl CAP] 25 mg PO Q6HR PRN 08/22/19 08/22/19 Unknown History Active Medications: Generic Name Dose Route Start Last Admin Trade Name Freq PRN Reason Stop Dose Admin Lipase/Protease/Amylase 1 each 08/26/19 12:00 Iván Solano 10,500 Unit FEEDTUBE PRN PRN For Clogged Feeding Tube Dextrose 50 ml 08/28/19 07:56 D50w (25gm) Syringe IV Q30MIN PRN Hypoglycemia Ferrous Sulfate 308 mg 09/02/19 10:00 09/04/19 13:15 Ferrous Sulfate PO 308 mg QDAY KJ Administration Hydromorphone HCl 0.25 mg 08/31/19 13:03 09/03/19 22:56 Dilaudid IV 0.25 mg Q6H PRN Administration Pain , Severe (7-10) Dextrose 1,000 mls @ 75 mls/hr 09/04/19 11:00 09/05/19 06:34 D5w IV 75 mls/hr DIRECT KJ Administration Insulin Human Lispro 0 unit 08/28/19 08:00 09/05/19 06:31 Humalog SUB-Q 2 unit Q6HR KJ Administration Protocol Lactulose 20 gm 08/27/19 14:00 09/05/19 06:31 Cephulac PO 20 gm Q8HR KJ Administration Lansoprazole 30 mg 08/27/19 10:00 09/04/19 23:40 Prevacid Solutab FEEDTUBE 30 mg BID KJ Administration Nadolol 20 mg 08/27/19 11:00 09/04/19 13:15 Corgard PO 20 mg QDAY KJ Administration Oxycodone/Acetaminophen 1 tab 09/04/19 14:40 09/04/19 16:11 Percocet 5/325 PO 1 tab Q6H PRN Administration Pain, Moderate (4-6) Simple Syrup 15 ml 08/26/19 12:00 Simple Syrup FEEDTUBE PRN PRN Hypoglycemia Simple Syrup 30 ml 08/26/19 12:00 Simple Syrup FEEDTUBE PRN PRN Hypoglycemia Sodium Bicarbonate 325 mg 08/26/19 12:00 Sodium Bicarbonate FEEDTUBE PRN PRN For Clogged Feeding Tube Sodium Chloride 10 ml 08/22/19 22:00 09/04/19 23:41 Sodium Chloride Flush Syringe 10 Ml IV 10 ml BID KJ Administration Sodium Chloride 10 ml 08/22/19 21:11 08/30/19 10:08 Sodium Chloride Flush Syringe 10 Ml IV 10 ml PRN PRN Administration LINE FLUSH
[2019-09-05] MEDS: oxyCODONE /ACETAMINOPHEN 5-325MG TAB PO PRN (10:00)
[2019-09-05] MEDS: NADOLOL 20 MG TAB PO SCH (10:00)
[2019-09-05] MEDS: FERROUS SULFATE 308 MG (62mg Elemental Iron) / 7 ML ELIXIR PO SCH (10:00)
[2019-09-05] MEDS: LANSOPRAZOLE 30 MG SOLUTAB FEEDTUBE SCH ×2 (10:00→22:09)
[2019-09-05] MEDS ORDERED: POTASSIUM PHOSPHATE 30 MMOL in SODIUM CHLORIDE 0.9% 500 ML 500 ML IV ONE (10:43)
--- NOTE | 2019-09-05 13:37 | Event Note ---
Date: 09/05/19 Earliest time available in OR when both surgeons are available is Friday. If time opens up on Friday, OR said they would move us up. Will try to contact daughter tomorrow for consent. Please call with questions.
--- NOTE | 2019-09-05 18:38 | Progress Note ---
Assessment and Plan Assessment and plan: --Abnormal swallow eval; Speech Therapist recommend PEG placement Family, agreed for PEG GI evaluated ,recommend surgical placement of PEG Dr. Thomas surgeon evaluated the patient, planning to schedule next week per OR time schedule --Hypernatremia; resolved Continue IV D5W, free water flushes via NG tube monitor electrolytes --Hepatic encephalopathy-Acute on chronic Continue lactulose, patient is more alert and awake today Supportive care. Ammonia levels improved to normal range --Complicated UTI; completed antibiotics Rocephin monitor off antibiotics --Sepsis secondary to complicated UTI; off antibiotics --Leukemoid reaction; resolved --LAVONNE/ Vasomotor nephropathy/obstructive uropathy/ Resolved --History of left AKA; supportive care --History of CVA with residual weakness; Physical therapy supportive care --Coagulopathy; secondary to cirrhosis monitor for bleeding --Cirrhosis liver. History VARICES; No active GI bleeding closely monitor --DVT prophylaxis; SCDs No pharmacologic anticoagulation in view of coagulopathy --DO NOT RESUSCITATE status --Patient is critically ill with very poor prognosis Recommend hospice, Hospice consult Plan of care reviewed in detail with the patient's daughter over the phone Discharge planning patient will return to SNF when medically stable Plan of care Reviewed with the patient's nurse History Interval history: Patient seen and examined medical records reviewed Patient is confused[at his baseline] No new overnight events reported by the nursing Dysphagia, failed swallow, awaiting surgical PEG placement Vital signs reviewed Hospitalist Physical - Constitutional Vitals: Temp Pulse Resp BP Pulse Ox 97.8 F 81 16 138/74 98 09/05/19 16:25 09/05/19 16:25 09/05/19 16:25 09/05/19 16:25 09/05/19 16:25 General appearance: Present: no acute distress, well-nourished, other (noncommunicative) - EENT Eyes: Present: PERRL, EOM intact - Neck Neck: Present: supple, normal ROM - Respiratory Respiratory effort: normal Respiratory: bilateral: diminished, negative: rales, rhonchi, wheezing - Cardiovascular Rhythm: regular Heart Sounds: Present: S1 & S2 - Extremities Extremities: no ischemia Extremity abnormal: edema - Abdominal General gastrointestinal: soft, non-tender, non-distended, normal bowel sounds - Integumentary Integumentary: Present: clear, warm - Psychiatric Psychiatric: other (confused and noncommunicative) - Neurologic Neurologic: other (confused and noncommunicative) Results - Labs CBC & Chem 7: 09/04/19 05:40 09/05/19 05:35 Labs: Laboratory Last Values WBC 10.7 K/mm3 (4.5-11.0) 09/04/19 05:40 RBC 3.27 M/mm3 (3.65-5.03) L 09/04/19 05:40 Hgb 8.7 gm/dl (11.8-15.2) L 09/04/19 05:40 Hct 28.4 % (35.5-45.6) L 09/04/19 05:40 MCV 87 fl (84-94) 09/04/19 05:40 MCH 27 pg (28-32) L 09/04/19 05:40 MCHC 31 % (32-34) L 09/04/19 05:40 RDW 23.3 % (13.2-15.2) H 09/04/19 05:40 Plt Count 229 K/mm3 (140-440) 09/04/19 05:40 Lymph % (Auto) 14.6 % (13.4-35.0) 09/04/19 05:40 Bent % (Auto) 12.3 % (0.0-7.3) H 09/04/19 05:40 Eos % (Auto) 6.6 % (0.0-4.3) H 09/04/19 05:40 Baso % (Auto) 0.6 % (0.0-1.8) 09/04/19 05:40 Lymph # 1.6 K/mm3 (1.2-5.4) 09/04/19 05:40 Bent # 1.3 K/mm3 (0.0-0.8) H 09/04/19 05:40 Eos # 0.7 K/mm3 (0.0-0.4) H 09/04/19 05:40 Baso # 0.1 K/mm3 (0.0-0.1) 09/04/19 05:40 Add Manual Diff Complete 08/30/19 10:00 Total Counted 100 08/30/19 10:00 Seg Neutrophils % 65.9 % (40.0-70.0) 09/04/19 05:40 Seg Neuts % (Manual) 85.0 % (40.0-70.0) H 08/30/19 10:00 Band Neutrophils % 0 % 08/30/19 10:00 Lymphocytes % (Manual) 2.0 % (13.4-35.0) L 08/30/19 10:00 Reactive Lymphs % (Man) 0 % 08/30/19 10:00 Monocytes % (Manual) 10.0 % (0.0-7.3) H 08/30/19 10:00 Eosinophils % (Manual) 2.0 % (0.0-4.3) 08/30/19 10:00 Basophils % (Manual) 0 % (0.0-1.8) 08/30/19 10:00 Metamyelocytes % 0 % 08/30/19 10:00 Myelocytes % 1.0 % 08/30/19 10:00 Promyelocytes % 0 % 08/30/19 10:00 Blast Cells % 0 % 08/30/19 10:00 Nucleated RBC % Not Reportable 08/30/19 10:00 Seg Neutrophils # 7.1 K/mm3 (1.8-7.7) 09/04/19 05:40 Seg Neutrophils # Man 13.3 K/mm3 (1.8-7.7) H 08/30/19 10:00 Band Neutrophils # 0.0 K/mm3 08/30/19 10:00 Lymphocytes # (Manual) 0.3 K/mm3 (1.2-5.4) L 08/30/19 10:00 Abs React Lymphs (Man) 0.0 K/mm3 08/30/19 10:00 Monocytes # (Manual) 1.6 K/mm3 (0.0-0.8) H 08/30/19 10:00 Eosinophils # (Manual) 0.3 K/mm3 (0.0-0.4) 08/30/19 10:00 Basophils # (Manual) 0.0 K/mm3 (0.0-0.1) 08/30/19 10:00 Metamyelocytes # 0.0 K/mm3 08/30/19 10:00 Myelocytes # 0.2 K/mm3 08/30/19 10:00 Promyelocytes # 0.0 K/mm3 08/30/19 10:00 Blast Cells # 0.0 K/mm3 08/30/19 10:00 WBC Morphology Not Reportable 08/30/19 10:00 Hypersegmented Neuts Not Reportable 08/30/19 10:00 Hyposegmented Neuts Not Reportable 08/30/19 10:00 Hypogranular Neuts Not Reportable 08/30/19 10:00 Smudge Cells Not Reportable 08/30/19 10:00 Toxic Granulation Not Reportable 08/30/19 10:00 Toxic Vacuolation Not Reportable 08/30/19 10:00 Dohle Bodies Not Reportable 08/30/19 10:00 Pelger-Huet Anomaly Not Reportable 08/30/19 10:00 Ramonita Rods Not Reportable 08/30/19 10:00 Platelet Estimate Consistent w auto 08/30/19 10:00 Clumped Platelets Not Reportable 08/30/19 10:00 Plt Clumps, EDTA Not Reportable 08/30/19 10:00 Large Platelets Not Reportable 08/30/19 10:00 Giant Platelets Not Reportable 08/30/19 10:00 Platelet Satelliting Not Reportable 08/30/19 10:00 Plt Morphology Comment Not Reportable 08/30/19 10:00 RBC Morphology Not Reportable 08/30/19 10:00 Dimorphic RBCs Not Reportable 08/30/19 10:00 Polychromasia Not Reportable 08/30/19 10:00 Hypochromasia Few 08/30/19 10:00 Poikilocytosis Not Reportable 08/30/19 10:00 Anisocytosis 2+ 08/30/19 10:00 Microcytosis Not Reportable 08/30/19 10:00 Macrocytosis Few 08/30/19 10:00 Spherocytes Not Reportable 08/30/19 10:00 Pappenheimer Bodies Not Reportable 08/30/19 10:00 Sickle Cells Not Reportable 08/30/19 10:00 Target Cells 1+ 08/30/19 10:00 Tear Drop Cells Not Reportable 08/30/19 10:00 Ovalocytes Not Reportable 08/30/19 10:00 Helmet Cells Not Reportable 08/30/19 10:00 [place] Bodies Not Reportable 08/30/19 10:00 [place] Rings Not Reportable 08/30/19 10:00 Freddy Cells Not Reportable 08/30/19 10:00 Bite Cells Not Reportable 08/30/19 10:00 Crenated Cell Not Reportable 08/30/19 10:00 Elliptocytes Not Reportable 08/30/19 10:00 Acanthocytes (Spur) Not Reportable 08/30/19 10:00 Rouleaux Not Reportable 08/30/19 10:00 Hemoglobin C Crystals Not Reportable 08/30/19 10:00 Schistocytes Not Reportable 08/30/19 10:00 Malaria parasites Not Reportable 08/30/19 10:00 Noel Bodies Not Reportable 08/30/19 10:00 Hem Pathologist Commnt No 08/30/19 10:00 PT 17.8 Sec. (12.2-14.9) H 08/24/19 04:07 INR 1.51 (0.87-1.13) H 08/24/19 04:07 APTT 31.8 Sec. (24.2-36.6) 08/22/19 12:39 Sodium 140 mmol/L (137-145) 09/05/19 05:35 Potassium 3.7 mmol/L (3.6-5.0) 09/05/19 05:35 Chloride 104.6 mmol/L (98-107) 09/05/19 05:35 Carbon Dioxide 27 mmol/L (22-30) 09/05/19 05:35 Anion Gap 12 mmol/L 09/05/19 05:35 BUN 13 mg/dL (9-20) 09/05/19 05:35 Creatinine 0.7 mg/dL (0.8-1.5) L 09/05/19 05:35 Estimated GFR > 60 ml/min 09/05/19 05:35 BUN/Creatinine Ratio 19 % 09/05/19 05:35 Glucose 156 mg/dL (75-100) H 09/05/19 05:35 POC Glucose 113 (70-105) H 09/05/19 17:09 Osmolality 351 Mosm/kg 08/25/19 09:58 Lactic Acid 1.60 mmol/L (0.7-2.0) 08/22/19 23:07 Calcium 7.9 mg/dL (8.4-10.2) L 09/05/19 05:35 Phosphorus 2.40 mg/dL (2.5-4.5) L 09/05/19 05:35 Magnesium 1.70 mg/dL (1.7-2.3) 09/04/19 05:40 Iron 15 ug/dL (49-181) L 08/30/19 10:00 TIBC 209 mcg/dL (250-450) L 08/30/19 10:00 Ferritin 104.6 ng/mL (13.0-400.0) 08/30/19 10:00 Total Bilirubin 0.50 mg/dL (0.1-1.2) 09/03/19 07:42 Direct Bilirubin < 0.2 mg/dL (0-0.2) 09/03/19 07:42 Indirect Bilirubin 0.3 mg/dL 09/03/19 07:42 AST 42 units/L (5-40) H 09/03/19 07:42 ALT 38 units/L (7-56) 09/03/19 07:42 Alkaline Phosphatase 227 units/L (35-129) H 09/03/19 07:42 Ammonia 38.0 umol/L (25-60) 08/24/19 04:07 Troponin T < 0.010 ng/mL (0.00-0.029) 08/22/19 12:39 NT-Pro-B Natriuret Pep 1788 pg/mL (0-900) H 08/22/19 12:39 Total Protein 6.4 g/dL (6.3-8.2) 09/03/19 07:42 Albumin 2.6 g/dL (3.9-5) L 09/03/19 07:42 Albumin/Globulin Ratio 0.7 % 09/03/19 07:42 Lipase 18 units/L (13-60) 08/22/19 12:39 Vitamin B12 596.1 pg/mL (211-911) 08/30/19 10:00 Folate 18.44 ng/mL (7.3-26.0) 08/30/19 10:00 Urine Color Yellow (Yellow) 08/25/19 10:45 Urine Turbidity Clear (Clear) 08/25/19 10:45 Urine pH 6.0 (5.0-7.0) 08/25/19 10:45 Ur Specific [place] 1.012 (1.003-1.030) 08/25/19 10:45 Urine Protein <15 mg/dl mg/dL (Negative) 08/25/19 10:45 Urine Glucose (UA) Neg mg/dL (Negative) 08/25/19 10:45 Urine Ketones Neg mg/dL (Negative) 08/25/19 10:45 Urine Blood Sm (Negative) 08/25/19 10:45 Urine Nitrite Neg (Negative) 08/25/19 10:45 Urine Bilirubin Neg (Negative) 08/25/19 10:45 Urine Urobilinogen < 2.0 mg/dL (<2.0) 08/25/19 10:45 Ur Leukocyte Esterase Sm (Negative) 08/25/19 10:45 Urine WBC (Auto) 17.0 /HPF (0.0-6.0) H 08/25/19 10:45 Urine RBC (Auto) 7.0 /HPF (0.0-6.0) 08/25/19 10:45 Urine Bacteria (Auto) 1+ /HPF (Negative) 08/25/19 10:45 Urine Mucus Few /HPF 08/25/19 10:45 Urine Osmolality 455 Mosm/kg 08/25/19 10:45 Urine Creatinine 70.8 mg/dL (0.1-20.0) H 08/25/19 10:45 Urine Sodium 74 mmol/L 08/25/19 10:45 Blood Type O POSITIVE 08/22/19 12:39 Antibody Screen Negative 08/22/19 12:39 Crossmatch See Detail 08/22/19 12:39 Active Medications - Current Medications Current Medications: Generic Name Dose Route Start Last Admin Trade Name Freq PRN Reason Stop Dose Admin Lipase/Protease/Amylase 1 each 08/26/19 12:00 Pancrekiara Solano 10,500 Unit FEEDTUBE PRN PRN For Clogged Feeding Tube Dextrose 50 ml 08/28/19 07:56 D50w (25gm) Syringe IV Q30MIN PRN Hypoglycemia Ferrous Sulfate 308 mg 09/02/19 10:00 09/05/19 10:00 Ferrous Sulfate PO 308 mg QDAY KJ Administration Hydromorphone HCl 0.25 mg 08/31/19 13:03 09/03/19 22:56 Dilaudid IV 0.25 mg Q6H PRN Administration Pain , Severe (7-10) Dextrose 1,000 mls @ 75 mls/hr 09/04/19 11:00 09/05/19 06:34 D5w IV 75 mls/hr DIRECT KJ Administration Insulin Human Lispro 0 unit 08/28/19 08:00 09/05/19 12:24 Humalog SUB-Q 2 unit Q6HR KJ Administration Protocol Lactulose 20 gm 08/27/19 14:00 09/05/19 15:03 Cephulac PO 20 gm Q8HR KJ Administration Lansoprazole 30 mg 08/27/19 10:00 09/05/19 10:00 Prevacid Solutab FEEDTUBE 30 mg BID KJ Administration Nadolol 20 mg 08/27/19 11:00 09/05/19 10:00 Corgard PO 20 mg QDAY KJ Administration Oxycodone/Acetaminophen 1 tab 09/04/19 14:40 09/05/19 10:00 Percocet 5/325 PO 1 tab Q6H PRN Administration Pain, Moderate (4-6) Simple Syrup 15 ml 08/26/19 12:00 Simple Syrup FEEDTUBE PRN PRN Hypoglycemia Simple Syrup 30 ml 08/26/19 12:00 Simple Syrup FEEDTUBE PRN PRN Hypoglycemia Sodium Bicarbonate 325 mg 08/26/19 12:00 Sodium Bicarbonate FEEDTUBE PRN PRN For Clogged Feeding Tube Sodium Chloride 10 ml 08/22/19 22:00 09/05/19 10:00 Sodium Chloride Flush Syringe 10 Ml IV 10 ml BID KJ Administration Sodium Chloride 10 ml 08/22/19 21:11 08/30/19 10:08 Sodium Chloride Flush Syringe 10 Ml IV 10 ml PRN PRN Administration LINE FLUSH Nutrition/Malnutrition Assess - Dietary Evaluation Nutrition/Malnutrition Findings: Nutrition Notes Start: 08/26/19 10:54 Freq: Status: Active Protocol: Document 09/03/19 11:16 CC (Rec: 09/03/19 11:28 CC [email or web address]) Co-Sign 09/03/19 11:16 LP Nutrition Notes Initial or Follow up Reassessment Current Diagnosis Acute Kidney Injury,Diabetes, Hypertension Other Pertinent Diagnosis Cirrhosis, hepatic encephalopathy, s/p BKA Current Diet npo Labs/Tests K 3.2 Pertinent Medications reviewed Height 6 ft Weight 83.4 kg [place] Body Weight (kg) 80.90 BMI 24.9 Weight change and time frame Current wt obtained from I&O Weight Status Appropriate Subjective/Other Information f/u. Pt was recieving TF at previous Osmolite 1.5 at goal rate of 60ml/hr after being NPO. Pt continues with NG feedings. Possible hospice Percent of energy/protein needs met: 100/100% Burn Absent Trauma Absent GI Symptoms None Food Allergy No Minimum of two criteria Yes Muscle Mass Mild Depletion (non-severe) Fluid Accumulation Mild (non-severe) #2 Nutrition Diagnosis Malnutrition Etiology cirrhosis As Evidenced by Signs and Symptoms temporal and orbital wasting, statement that pt has mild ascites Diagnosis Progress(for reassessment Continues documentation) #1 Nutrition Diagnosis Inadequate oral intake Diagnosis Progress(for reassessment Continues documentation) Is patient on ventilator? No Is Patient Ambulatory and/or Out of Bed No REE-([facility]-confined to bed) 1998.548 Calculation Used for Recommendations [facility] Additional Notes PRO: 83-100g/day (1.0-1.2g/kg) Fluid: 1ml/kcal Nutrition Intervention Nutrition Support: Osmolite 1.5 at 60 ml/hr (goal rate) Water flush of 185 mL q 4 hours Kcal 2,160 Protein (gm) 90 Fluid (mL) 1,097 Goal #1 TF tolerance Goal #2 Continue to meet at least 75% of calorie and protein needs via TF Anticipated Discharge Needs: TF Follow-Up By: 09/06/19 Additional Comments Follow for TF POC, TF tolerance
[2019-09-06] MEDS: INSULIN LISPRO 100 UNIT/ML SUB-Q SCH ×4 (01:25→18:00)
[2019-09-06 05:34] LABS: Basophils # (Auto) 0.1 K/mm3 (0.0-0.1); Eosinophils # (Auto) 0.5 K/mm3 (0.0-0.4); Hemoglobin 9.5 gm/dl (11.8-15.2); Lymphocytes # (Auto) 1.4 K/mm3 (1.2-5.4); Lymphocytes % (Auto) 15.4 % (13.4-35.0); Mean Corpuscular HGB Conc 32 % (32-34); Mean Corpuscular Volume 87 fl (84-94); Monocytes # (Auto) 1.3 K/mm3 (0.0-0.8); Monocytes % (Auto) 13.8 % (0.0-7.3); Platelet Count 253 K/mm3 (140-440); Red Blood Count 3.44 M/mm3 (3.65-5.03)
[2019-09-06 05:41] LABS: Red Cell Distribution Width 22.7 % (13.2-15.2)
[2019-09-06 05:45] LABS: BUN/Creatinine Ratio 20; Blood Urea Nitrogen 12 mg/dL (9-20); Calcium 8.3 mg/dL (8.4-10.2); Hemolysis Index 4
[2019-09-06 05:46] LABS: INR 1.25 (0.87-1.13)
[2019-09-06] MEDS: DEXTROSE 5% IN WATER 1,000 ML IV SCH ×2 (07:11→19:21)
[2019-09-06] MEDS: LACTULOSE 20 GM/30 ML ORAL LIQD PO SCH ×3 (07:16→22:37)
--- NOTE | 2019-09-06 07:55 | Hem/Onc Progress Note ---
Assessment and Plan 1. Leukocytosis, likely reactive. Predominant neutrophil, anemia. MCV is normal. We will do deficiency investigations. 2. Platelet count is normal. 3. Electrolyte abnormality. 4. History of gastrointestinal bleed. 5. Mention of hepatic encephalopathy. 6. We will observe the trend of white cell count and follow the trend of platelet count. h/o CVA NGT h/o cirrhosis - CT in aug 2019 - no mention of same s iron low - oral iron trial b12 - folate normal wbc better - follow as per RN - PEG on FRI anemia - hb at one time was 6.7 - on oral iron - Patient Problems (1) Leukocytosis Current Visit: No Status: Acute Qualifiers: Leukocytosis type: leukemoid reaction Qualified Code(s): D72.823 - Leukemoid reaction Subjective Date of service: 09/06/19 Principal diagnosis: anemia Interval history: due PEG friday Objective - Exam Narrative Exam: Pain - none General appearance - awake - NGT Performance status complete dependence Eyes - no icterus ENT - NGT LNs cervical not palpable Neck - no LN Respiratory Normal Breath sounds - CTA anteriorly CVS S1 S2 + Extremities no edema General GI Soft Rectal deferred male - deferred Skin warm Musculoskeletal h/o CVA Neurologically awake - slurred speech - h/o CVA - Constitutional Vitals: Last Vital Signs Temp 97.8 F 09/05/19 16:25 Pulse 94 H 09/05/19 22:00 Resp 16 09/05/19 16:25 BP 138/74 09/05/19 16:25 Pulse Ox 98 09/05/19 16:25 - Labs Lab Results: Laboratory Results - last 24 hr 09/05/19 09/05/19 09/06/19 10:58 17:09 01:47 WBC RBC Hgb Hct MCV MCH MCHC RDW Plt Count Lymph % (Auto) [place] % (Auto) Eos % (Auto) Baso % (Auto) Lymph # Morris # Eos # Baso # Seg Neutrophils % Seg Neutrophils # PT INR APTT Sodium Potassium Chloride Carbon Dioxide Anion Gap BUN Creatinine Estimated GFR BUN/Creatinine Ratio Glucose POC Glucose 173 H 113 H 135 H Calcium Phosphorus 09/06/19 09/06/19 09/06/19 04:16 04:50 04:50 WBC 9.3 RBC 3.44 L Hgb 9.5 L Hct 30.0 L MCV 87 MCH 28 MCHC 32 RDW 22.7 H Plt Count 253 Lymph % (Auto) 15.4 Morris % (Auto) 13.8 H Eos % (Auto) 5.0 H Baso % (Auto) 1.0 Lymph # 1.4 Morris # 1.3 H Eos # 0.5 H Baso # 0.1 Seg Neutrophils % 64.8 Seg Neutrophils # 6.0 PT INR APTT Sodium 142 Potassium 4.1 Chloride 106.3 Carbon Dioxide 26 Anion Gap 14 BUN 12 Creatinine 0.6 L Estimated GFR > 60 BUN/Creatinine Ratio 20 Glucose 124 H POC Glucose 121 H Calcium 8.3 L Phosphorus 3.10 D 09/06/19 04:50 WBC RBC Hgb Hct MCV MCH MCHC RDW Plt Count Lymph % (Auto) [place] % (Auto) Eos % (Auto) Baso % (Auto) Lymph # Morris # Eos # Baso # Seg Neutrophils % Seg Neutrophils # PT 15.6 H INR 1.25 H APTT 29.0 Sodium Potassium Chloride Carbon Dioxide Anion Gap BUN Creatinine Estimated GFR BUN/Creatinine Ratio Glucose POC Glucose Calcium Phosphorus Medications & Allergies - Medications Allergies/Adverse Reactions: Allergies No Known Allergies Allergy (Unverified 07/11/13 08:29) Home Medications: Home Medications Medication Instructions Recorded Confirmed Last Taken Type Apixaban [Eliquis] 5 mg PO BID 08/22/19 08/22/19 Unknown History Ascorbic Acid [Vitamin C] 500 mg PO Q12H 08/22/19 08/22/19 Unknown History AtorvaSTATin [Lipitor] 40 mg PO QHS 08/22/19 08/22/19 Unknown History Carvedilol [Coreg] 6.25 mg PO BID 08/22/19 08/22/19 Unknown History Dicyclomine [Bentyl] 20 mg PO QID PRN 08/22/19 08/22/19 Unknown History Docusate Sodium [Colace] 100 mg PO BID 08/22/19 08/22/19 Unknown History Flomax 0.4 mg PO QHS 08/22/19 08/22/19 Unknown History Folic Acid [Folvite] 1 mg PO QDAY 08/22/19 08/22/19 Unknown History HYDROcodone/APAP 5-325 [[place] 1 each PO Q6HR PRN 08/22/19 08/22/19 Unknown History 5/325] Ibuprofen [Motrin] 600 mg PO Q8H PRN 08/22/19 08/22/19 Unknown History Lisinopril [Zestril TAB] 10 mg PO QDAY 08/22/19 08/22/19 Unknown History Loperamide [Imodium] 2 mg PO BID PRN 08/22/19 08/22/19 Unknown History Magnesium Hydroxide [Milk of 400 mg PO Q24HR PRN 08/22/19 08/22/19 Unknown History Magnesia] Melatonin 3 mg PO QHS 08/22/19 08/22/19 Unknown History Multivit with Minerals No.55 1 tab PO DAILY 08/22/19 08/22/19 Unknown History Pantoprazole [Protonix] 40 mg PO QDAY 08/22/19 08/22/19 Unknown History Sennosides/Docusate Sodium [Senna 1 each PO DAILY 08/22/19 08/22/19 Unknown History Plus Tablet] diphenhydrAMINE [Benadryl CAP] 25 mg PO Q6HR PRN 08/22/19 08/22/19 Unknown History Active Medications: Generic Name Dose Route Start Last Admin Trade Name Freq PRN Reason Stop Dose Admin Lipase/Protease/Amylase 1 each 08/26/19 12:00 Pancrekiara Solano 10,500 Unit FEEDTUBE PRN PRN For Clogged Feeding Tube Dextrose 50 ml 08/28/19 07:56 D50w (25gm) Syringe IV Q30MIN PRN Hypoglycemia Ferrous Sulfate 308 mg 09/02/19 10:00 09/05/19 10:00 Ferrous Sulfate PO 308 mg QDAY KJ Administration Hydromorphone HCl 0.25 mg 08/31/19 13:03 09/03/19 22:56 Dilaudid IV 0.25 mg Q6H PRN Administration Pain , Severe (7-10) Dextrose 1,000 mls @ 75 mls/hr 09/04/19 11:00 09/06/19 07:11 D5w IV 75 mls/hr DIRECT KJ Administration Insulin Human Lispro 0 unit 08/28/19 08:00 09/06/19 05:41 Humalog SUB-Q Not Given Q6HR [facility] Protocol Lactulose 20 gm 08/27/19 14:00 09/06/19 07:16 Cephulac PO Not Given Q8HR [facility] Lansoprazole 30 mg 08/27/19 10:00 09/05/19 22:09 Prevacid Solutab FEEDTUBE 30 mg BID KJ Administration Nadolol 20 mg 08/27/19 11:00 09/05/19 10:00 Corgard PO 20 mg QDAY KJ Administration Oxycodone/Acetaminophen 1 tab 09/04/19 14:40 09/05/19 10:00 Percocet 5/325 PO 1 tab Q6H PRN Administration Pain, Moderate (4-6) Simple Syrup 15 ml 08/26/19 12:00 Simple Syrup FEEDTUBE PRN PRN Hypoglycemia Simple Syrup 30 ml 08/26/19 12:00 Simple Syrup FEEDTUBE PRN PRN Hypoglycemia Sodium Bicarbonate 325 mg 08/26/19 12:00 Sodium Bicarbonate FEEDTUBE PRN PRN For Clogged Feeding Tube Sodium Chloride 10 ml 08/22/19 22:00 09/05/19 22:09 Sodium Chloride Flush Syringe 10 Ml IV 10 ml BID KJ Administration Sodium Chloride 10 ml 08/22/19 21:11 08/30/19 10:08 Sodium Chloride Flush Syringe 10 Ml IV 10 ml PRN PRN Administration LINE FLUSH
--- NOTE | 2019-09-06 08:03 | XRay Report ---
ABDOMEN 1 VIEW(S) INDICATION / CLINICAL INFORMATION: to verify dobhoff placement for tube feeding. COMPARISON: 2 days prior FINDINGS: TUBES / LINES: Dobbhoff tube tip is in the proximal stomach and should be advanced at least 10-15 cm distally into the duodenum. BOWEL GAS PATTERN: No significant abnormality. FREE AIR / EXTRALUMINAL GAS: None seen. ADDITIONAL FINDINGS: No significant additional findings. IMPRESSION: 1. DHT as above. Signer Name: Shade Lloyd MD Signed: 09/06/2019 7:58 AM Workstation Name: [id number]
--- NOTE | 2019-09-06 08:40 | Progress Note ---
Assessment and Plan Assessment and plan: --Abnormal swallow eval; Speech Therapist recommend PEG placement Family, agreed for PEG , GI evaluated , recommend surgical placement of PEG Dr. Thomas surgeon possible PEG on 09/08/2019 --Hypernatremia; resolved Continue IV D5W, free water flushes via NG tube monitor electrolytes --Hepatic encephalopathy-Acute on chronic Continue lactulose, patient is more alert and awake today Supportive care. Ammonia levels improved to normal range --Complicated UTI; completed antibiotics Rocephin monitor off antibiotics --Sepsis secondary to complicated UTI; off antibiotics --Leukemoid reaction; resolved --LAVONNE/ Vasomotor nephropathy/obstructive uropathy/ Resolved --History of left AKA; supportive care --History of CVA with residual weakness; Physical therapy supportive care --Coagulopathy; secondary to cirrhosis monitor for bleeding --Cirrhosis liver. History VARICES; No active GI bleeding closely monitor --DVT prophylaxis; SCDs No pharmacologic anticoagulation in view of coagulopathy --DO NOT RESUSCITATE status --Patient is critically ill with very poor prognosis Recommend hospice, Hospice consult Plan of care reviewed in detail with the patient's daughter over the phone Disposition ; follow PEG placement discharge to SNF when medically stable History Interval history: Patient seen and examined medical records reviewed Patient is minimally communicative, confused Scheduled for surgical PEG placement on 09/08/2019 Vital signs noted Hospitalist Physical - Constitutional Vitals: Temp Pulse Resp BP Pulse Ox 97.8 F 94 H 16 138/74 98 09/05/19 16:25 09/05/19 22:00 09/05/19 16:25 09/05/19 16:25 09/05/19 16:25 General appearance: Present: no acute distress, well-nourished, other (noncommunicative) - EENT Eyes: Present: PERRL, EOM intact - Neck Neck: Present: supple, normal ROM - Respiratory Respiratory effort: normal Respiratory: bilateral: diminished, negative: rales, rhonchi, wheezing - Cardiovascular Rhythm: regular Heart Sounds: Present: S1 & S2 - Extremities Extremities: no ischemia Extremity abnormal: edema - Abdominal General gastrointestinal: soft, non-tender, non-distended, normal bowel sounds - Integumentary Integumentary: Present: clear, warm - Psychiatric Psychiatric: other (Noncommunicative) - Neurologic Neurologic: other (Noncommunicative, residual weakness) Results - Labs CBC & Chem 7: 09/06/19 04:50 09/06/19 04:50 Labs: Laboratory Last Values WBC 9.3 K/mm3 (4.5-11.0) 09/06/19 04:50 RBC 3.44 M/mm3 (3.65-5.03) L 09/06/19 04:50 Hgb 9.5 gm/dl (11.8-15.2) L 09/06/19 04:50 Hct 30.0 % (35.5-45.6) L 09/06/19 04:50 MCV 87 fl (84-94) 09/06/19 04:50 MCH 28 pg (28-32) 09/06/19 04:50 MCHC 32 % (32-34) 09/06/19 04:50 RDW 22.7 % (13.2-15.2) H 09/06/19 04:50 Plt Count 253 K/mm3 (140-440) 09/06/19 04:50 Lymph % (Auto) 15.4 % (13.4-35.0) 09/06/19 04:50 Rhea % (Auto) 13.8 % (0.0-7.3) H 09/06/19 04:50 Eos % (Auto) 5.0 % (0.0-4.3) H 09/06/19 04:50 Baso % (Auto) 1.0 % (0.0-1.8) 09/06/19 04:50 Lymph # 1.4 K/mm3 (1.2-5.4) 09/06/19 04:50 Rhea # 1.3 K/mm3 (0.0-0.8) H 09/06/19 04:50 Eos # 0.5 K/mm3 (0.0-0.4) H 09/06/19 04:50 Baso # 0.1 K/mm3 (0.0-0.1) 09/06/19 04:50 Add Manual Diff Complete 08/30/19 10:00 Total Counted 100 08/30/19 10:00 Seg Neutrophils % 64.8 % (40.0-70.0) 09/06/19 04:50 Seg Neuts % (Manual) 85.0 % (40.0-70.0) H 08/30/19 10:00 Band Neutrophils % 0 % 08/30/19 10:00 Lymphocytes % (Manual) 2.0 % (13.4-35.0) L 08/30/19 10:00 Reactive Lymphs % (Man) 0 % 08/30/19 10:00 Monocytes % (Manual) 10.0 % (0.0-7.3) H 08/30/19 10:00 Eosinophils % (Manual) 2.0 % (0.0-4.3) 08/30/19 10:00 Basophils % (Manual) 0 % (0.0-1.8) 08/30/19 10:00 Metamyelocytes % 0 % 08/30/19 10:00 Myelocytes % 1.0 % 08/30/19 10:00 Promyelocytes % 0 % 08/30/19 10:00 Blast Cells % 0 % 08/30/19 10:00 Nucleated RBC % Not Reportable 08/30/19 10:00 Seg Neutrophils # 6.0 K/mm3 (1.8-7.7) 09/06/19 04:50 Seg Neutrophils # Man 13.3 K/mm3 (1.8-7.7) H 08/30/19 10:00 Band Neutrophils # 0.0 K/mm3 08/30/19 10:00 Lymphocytes # (Manual) 0.3 K/mm3 (1.2-5.4) L 08/30/19 10:00 Abs React Lymphs (Man) 0.0 K/mm3 08/30/19 10:00 Monocytes # (Manual) 1.6 K/mm3 (0.0-0.8) H 08/30/19 10:00 Eosinophils # (Manual) 0.3 K/mm3 (0.0-0.4) 08/30/19 10:00 Basophils # (Manual) 0.0 K/mm3 (0.0-0.1) 08/30/19 10:00 Metamyelocytes # 0.0 K/mm3 08/30/19 10:00 Myelocytes # 0.2 K/mm3 08/30/19 10:00 Promyelocytes # 0.0 K/mm3 08/30/19 10:00 Blast Cells # 0.0 K/mm3 08/30/19 10:00 WBC Morphology Not Reportable 08/30/19 10:00 Hypersegmented Neuts Not Reportable 08/30/19 10:00 Hyposegmented Neuts Not Reportable 08/30/19 10:00 Hypogranular Neuts Not Reportable 08/30/19 10:00 Smudge Cells Not Reportable 08/30/19 10:00 Toxic Granulation Not Reportable 08/30/19 10:00 Toxic Vacuolation Not Reportable 08/30/19 10:00 Dohle Bodies Not Reportable 08/30/19 10:00 Pelger-Huet Anomaly Not Reportable 08/30/19 10:00 Ramonita Rods Not Reportable 08/30/19 10:00 Platelet Estimate Consistent w auto 08/30/19 10:00 Clumped Platelets Not Reportable 08/30/19 10:00 Plt Clumps, EDTA Not Reportable 08/30/19 10:00 Large Platelets Not Reportable 08/30/19 10:00 Giant Platelets Not Reportable 08/30/19 10:00 Platelet Satelliting Not Reportable 08/30/19 10:00 Plt Morphology Comment Not Reportable 08/30/19 10:00 RBC Morphology Not Reportable 08/30/19 10:00 Dimorphic RBCs Not Reportable 08/30/19 10:00 Polychromasia Not Reportable 08/30/19 10:00 Hypochromasia Few 08/30/19 10:00 Poikilocytosis Not Reportable 08/30/19 10:00 Anisocytosis 2+ 08/30/19 10:00 Microcytosis Not Reportable 08/30/19 10:00 Macrocytosis Few 08/30/19 10:00 Spherocytes Not Reportable 08/30/19 10:00 Pappenheimer Bodies Not Reportable 08/30/19 10:00 Sickle Cells Not Reportable 08/30/19 10:00 Target Cells 1+ 08/30/19 10:00 Tear Drop Cells Not Reportable 08/30/19 10:00 Ovalocytes Not Reportable 08/30/19 10:00 Helmet Cells Not Reportable 08/30/19 10:00 Valle-Leona Bodies Not Reportable 08/30/19 10:00 [place] Rings Not Reportable 08/30/19 10:00 Freddy Cells Not Reportable 08/30/19 10:00 Bite Cells Not Reportable 08/30/19 10:00 Crenated Cell Not Reportable 08/30/19 10:00 Elliptocytes Not Reportable 08/30/19 10:00 Acanthocytes (Spur) Not Reportable 08/30/19 10:00 Rouleaux Not Reportable 08/30/19 10:00 Hemoglobin C Crystals Not Reportable 08/30/19 10:00 Schistocytes Not Reportable 08/30/19 10:00 Malaria parasites Not Reportable 08/30/19 10:00 Noel Bodies Not Reportable 08/30/19 10:00 Hem Pathologist Commnt No 08/30/19 10:00 PT 15.6 Sec. (12.2-14.9) H 09/06/19 04:50 INR 1.25 (0.87-1.13) H 09/06/19 04:50 APTT 29.0 Sec. (24.2-36.6) 09/06/19 04:50 Sodium 142 mmol/L (137-145) 09/06/19 04:50 Potassium 4.1 mmol/L (3.6-5.0) 09/06/19 04:50 Chloride 106.3 mmol/L (98-107) 09/06/19 04:50 Carbon Dioxide 26 mmol/L (22-30) 09/06/19 04:50 Anion Gap 14 mmol/L 09/06/19 04:50 BUN 12 mg/dL (9-20) 09/06/19 04:50 Creatinine 0.6 mg/dL (0.8-1.5) L 09/06/19 04:50 Estimated GFR > 60 ml/min 09/06/19 04:50 BUN/Creatinine Ratio 20 % 09/06/19 04:50 Glucose 124 mg/dL (75-100) H 09/06/19 04:50 POC Glucose 121 (70-105) H 09/06/19 04:16 Osmolality 351 Mosm/kg 08/25/19 09:58 Lactic Acid 1.60 mmol/L (0.7-2.0) 08/22/19 23:07 Calcium 8.3 mg/dL (8.4-10.2) L 09/06/19 04:50 Phosphorus 3.10 mg/dL (2.5-4.5) D 09/06/19 04:50 Magnesium 1.70 mg/dL (1.7-2.3) 09/04/19 05:40 Iron 15 ug/dL (49-181) L 08/30/19 10:00 TIBC 209 mcg/dL (250-450) L 08/30/19 10:00 Ferritin 104.6 ng/mL (13.0-400.0) 08/30/19 10:00 Total Bilirubin 0.50 mg/dL (0.1-1.2) 09/03/19 07:42 Direct Bilirubin < 0.2 mg/dL (0-0.2) 09/03/19 07:42 Indirect Bilirubin 0.3 mg/dL 09/03/19 07:42 AST 42 units/L (5-40) H 09/03/19 07:42 ALT 38 units/L (7-56) 09/03/19 07:42 Alkaline Phosphatase 227 units/L (35-129) H 09/03/19 07:42 Ammonia 38.0 umol/L (25-60) 08/24/19 04:07 Troponin T < 0.010 ng/mL (0.00-0.029) 08/22/19 12:39 NT-Pro-B Natriuret Pep 1788 pg/mL (0-900) H 08/22/19 12:39 Total Protein 6.4 g/dL (6.3-8.2) 09/03/19 07:42 Albumin 2.6 g/dL (3.9-5) L 09/03/19 07:42 Albumin/Globulin Ratio 0.7 % 09/03/19 07:42 Lipase 18 units/L (13-60) 08/22/19 12:39 Vitamin B12 596.1 pg/mL (211-911) 08/30/19 10:00 Folate 18.44 ng/mL (7.3-26.0) 08/30/19 10:00 Urine Color Yellow (Yellow) 08/25/19 10:45 Urine Turbidity Clear (Clear) 08/25/19 10:45 Urine pH 6.0 (5.0-7.0) 08/25/19 10:45 Ur Specific [place] 1.012 (1.003-1.030) 08/25/19 10:45 Urine Protein <15 mg/dl mg/dL (Negative) 08/25/19 10:45 Urine Glucose (UA) Neg mg/dL (Negative) 08/25/19 10:45 Urine Ketones Neg mg/dL (Negative) 08/25/19 10:45 Urine Blood Sm (Negative) 08/25/19 10:45 Urine Nitrite Neg (Negative) 08/25/19 10:45 Urine Bilirubin Neg (Negative) 08/25/19 10:45 Urine Urobilinogen < 2.0 mg/dL (<2.0) 08/25/19 10:45 Ur Leukocyte Esterase Sm (Negative) 08/25/19 10:45 Urine WBC (Auto) 17.0 /HPF (0.0-6.0) H 08/25/19 10:45 Urine RBC (Auto) 7.0 /HPF (0.0-6.0) 08/25/19 10:45 Urine Bacteria (Auto) 1+ /HPF (Negative) 08/25/19 10:45 Urine Mucus Few /HPF 08/25/19 10:45 Urine Osmolality 455 Mosm/kg 08/25/19 10:45 Urine Creatinine 70.8 mg/dL (0.1-20.0) H 08/25/19 10:45 Urine Sodium 74 mmol/L 08/25/19 10:45 Blood Type O POSITIVE 08/22/19 12:39 Antibody Screen Negative 08/22/19 12:39 Crossmatch See Detail 08/22/19 12:39 Active Medications - Current Medications Current Medications: Generic Name Dose Route Start Last Admin Trade Name Freq PRN Reason Stop Dose Admin Lipase/Protease/Amylase 1 each 08/26/19 12:00 Pancrekiara Solano 10,500 Unit FEEDTUBE PRN PRN For Clogged Feeding Tube Dextrose 50 ml 08/28/19 07:56 D50w (25gm) Syringe IV Q30MIN PRN Hypoglycemia Ferrous Sulfate 308 mg 09/02/19 10:00 09/05/19 10:00 Ferrous Sulfate PO 308 mg QDAY KJ Administration Hydromorphone HCl 0.25 mg 08/31/19 13:03 09/03/19 22:56 Dilaudid IV 0.25 mg Q6H PRN Administration Pain , Severe (7-10) Dextrose 1,000 mls @ 75 mls/hr 09/04/19 11:00 09/06/19 07:11 D5w IV 75 mls/hr DIRECT KJ Administration Insulin Human Lispro 0 unit 08/28/19 08:00 09/06/19 05:41 Humalog SUB-Q Not Given Q6HR [facility] Protocol Lactulose 20 gm 08/27/19 14:00 09/06/19 07:16 Cephulac PO Not Given Q8HR KJ Lansoprazole 30 mg 08/27/19 10:00 09/05/19 22:09 Prevacid Solutab FEEDTUBE 30 mg BID KJ Administration Nadolol 20 mg 08/27/19 11:00 09/05/19 10:00 Corgard PO 20 mg QDAY KJ Administration Oxycodone/Acetaminophen 1 tab 09/04/19 14:40 09/05/19 10:00 Percocet 5/325 PO 1 tab Q6H PRN Administration Pain, Moderate (4-6) Simple Syrup 15 ml 08/26/19 12:00 Simple Syrup FEEDTUBE PRN PRN Hypoglycemia Simple Syrup 30 ml 08/26/19 12:00 Simple Syrup FEEDTUBE PRN PRN Hypoglycemia Sodium Bicarbonate 325 mg 08/26/19 12:00 Sodium Bicarbonate FEEDTUBE PRN PRN For Clogged Feeding Tube Sodium Chloride 10 ml 08/22/19 22:00 09/05/19 22:09 Sodium Chloride Flush Syringe 10 Ml IV 10 ml BID KJ Administration Sodium Chloride 10 ml 08/22/19 21:11 08/30/19 10:08 Sodium Chloride Flush Syringe 10 Ml IV 10 ml PRN PRN Administration LINE FLUSH Nutrition/Malnutrition Assess - Dietary Evaluation Nutrition/Malnutrition Findings: Nutrition Notes Start: 08/26/19 10:54 Freq: Status: Active Protocol: Document 09/03/19 11:16 CC (Rec: 09/03/19 11:28 CC [id number]) Co-Sign 09/03/19 11:16 LP Nutrition Notes Initial or Follow up Reassessment Current Diagnosis Acute Kidney Injury,Diabetes, Hypertension Other Pertinent Diagnosis Cirrhosis, hepatic encephalopathy, s/p BKA Current Diet npo Labs/Tests K 3.2 Pertinent Medications reviewed Height 6 ft Weight 83.4 kg [place] Body Weight (kg) 80.90 BMI 24.9 Weight change and time frame Current wt obtained from I&O Weight Status Appropriate Subjective/Other Information f/u. Pt was recieving TF at previous Osmolite 1.5 at goal rate of 60ml/hr after being NPO. Pt continues with NG feedings. Possible hospice Percent of energy/protein needs met: 100/100% Burn Absent Trauma Absent GI Symptoms None Food Allergy No Minimum of two criteria Yes Muscle Mass Mild Depletion (non-severe) Fluid Accumulation Mild (non-severe) #2 Nutrition Diagnosis Malnutrition Etiology cirrhosis As Evidenced by Signs and Symptoms temporal and orbital wasting, statement that pt has mild ascites Diagnosis Progress(for reassessment Continues documentation) #1 Nutrition Diagnosis Inadequate oral intake Diagnosis Progress(for reassessment Continues documentation) Is patient on ventilator? No Is Patient Ambulatory and/or Out of Bed No REE-([facility]-confined to bed) 1998.548 Calculation Used for Recommendations [facility] Additional Notes PRO: 83-100g/day (1.0-1.2g/kg) Fluid: 1ml/kcal Nutrition Intervention Nutrition Support: Osmolite 1.5 at 60 ml/hr (goal rate) Water flush of 185 mL q 4 hours Kcal 2,160 Protein (gm) 90 Fluid (mL) 1,097 Goal #1 TF tolerance Goal #2 Continue to meet at least 75% of calorie and protein needs via TF Anticipated Discharge Needs: TF Follow-Up By: 09/06/19 Additional Comments Follow for TF POC, TF tolerance
[2019-09-06] MEDS: NADOLOL 20 MG TAB PO SCH (09:48)
[2019-09-06] MEDS: FERROUS SULFATE 308 MG (62mg Elemental Iron) / 7 ML ELIXIR PO SCH (09:49)
[2019-09-06] MEDS: LANSOPRAZOLE 30 MG SOLUTAB FEEDTUBE SCH ×2 (09:49→22:38)
[2019-09-06] MEDS: HYDROmorphone 1 MG/1 ML INJ IV PRN (10:51)
--- NOTE | 2019-09-06 12:29 | XRay Report ---
ABDOMEN 1 VIEW HISTORY: doff placement. COMPARISON: Same day at 0720 hours FINDINGS: The Dobbhoff tip remains in the proximal stomach and is unchanged since the last exam. Non obstructive bowel gas pattern. IMPRESSION: Persistent proximal position of the Dobbhoff feeding tube. Recommend redo of tube placeme nt. Signer Name: Rafael Goff MD Signed: 09/06/2019 12:25 PM Workstation Name: [id number]
--- NOTE | 2019-09-06 14:58 | XRay Report ---
ABDOMEN 1 VIEW(S) INDICATION / CLINICAL INFORMATION: dobb conor placement. COMPARISON: 09/06/2019, 1155 hours FINDINGS: TUBES / LINES: Weighted tip of the feeding tube projects the level the proximal stomach. The tube is been advanced approximately 2 to 3 cm BOWEL GAS PATTERN/EXTRALUMINAL GAS: No significant abnormality. No pneumatosis or secondary signs of free air. ADDITIONAL FINDINGS: No significant additional findings. Signer Name: Buck Elias MD Signed: 09/06/2019 2:53 PM Workstation Name: [id number]
[2019-09-07] MEDS: INSULIN LISPRO 100 UNIT/ML SUB-Q SCH ×4 (00:40→19:00)
[2019-09-07] MEDS: HYDROmorphone 1 MG/1 ML INJ IV PRN ×3 (03:11→18:27)
[2019-09-07] MEDS: LACTULOSE 20 GM/30 ML ORAL LIQD PO SCH ×3 (05:22→22:44)
--- NOTE | 2019-09-07 05:44 | XRay Report ---
ABDOMEN AP PORTABLE 0424 INDICATION: feeding tube placement COMPARISON: 09/06/2019 FINDINGS: Feeding tube has progressed more distally and appears now to be in the area of the second p ortion of the duodenum. Signer Name: Logan Braun MD Signed: 09/07/2019 5:39 AM Workstation Name: [id number]
--- NOTE | 2019-09-07 07:52 | Hem/Onc Progress Note ---
Assessment and Plan 1. Leukocytosis, likely reactive. Predominant neutrophil, anemia. MCV is normal. 2. Platelet count is normal. 3. Electrolyte abnormality. 4. History of gastrointestinal bleed. 5. Mention of hepatic encephalopathy. 6. We will observe the trend of white cell count and follow the trend of platelet count. h/o left BKA h/o CVA NGT h/o cirrhosis - CT in aug 2019 - no mention of same s iron low - oral iron trial b12 - folate normal wbc better - follow as per RN - PEG on FRI anemia - hb at one time was 6.7 - on oral iron - Patient Problems (1) Leukocytosis Current Visit: No Status: Acute Qualifiers: Leukocytosis type: leukemoid reaction Qualified Code(s): D72.823 - Leukemoid reaction Subjective Date of service: 09/07/19 Principal diagnosis: anemia Interval history: due PEG tomorrow Objective - Exam Narrative Exam: Pain - none General appearance - awake - NGT Performance status complete dependence Eyes - no icterus ENT - NGT LNs cervical not palpable Neck - no LN Respiratory Normal Breath sounds - CTA anteriorly CVS S1 S2 + Extremities no edema General GI Soft Rectal deferred male - deferred Skin warm Musculoskeletal h/o CVA - left BKA Neurologically awake - slurred speech - h/o CVA - Constitutional Vitals: Last Vital Signs Temp 98.1 F 09/07/19 05:51 Pulse 86 09/07/19 05:51 Resp 20 09/07/19 05:51 BP 150/75 09/07/19 05:51 Pulse Ox 95 09/07/19 05:51 - Labs Lab Results: Laboratory Results - last 24 hr 09/06/19 09/06/19 09/07/19 12:04 19:16 00:13 POC Glucose 125 H 115 H 126 H 09/07/19 06:41 POC Glucose 119 H Medications & Allergies - Medications Allergies/Adverse Reactions: Allergies No Known Allergies Allergy (Unverified 07/11/13 08:29) Home Medications: Home Medications Medication Instructions Recorded Confirmed Last Taken Type Apixaban [Eliquis] 5 mg PO BID 08/22/19 08/22/19 Unknown History Ascorbic Acid [Vitamin C] 500 mg PO Q12H 08/22/19 08/22/19 Unknown History AtorvaSTATin [Lipitor] 40 mg PO QHS 08/22/19 08/22/19 Unknown History Carvedilol [Coreg] 6.25 mg PO BID 08/22/19 08/22/19 Unknown History Dicyclomine [Bentyl] 20 mg PO QID PRN 08/22/19 08/22/19 Unknown History Docusate Sodium [Colace] 100 mg PO BID 08/22/19 08/22/19 Unknown History Flomax 0.4 mg PO QHS 08/22/19 08/22/19 Unknown History Folic Acid [Folvite] 1 mg PO QDAY 08/22/19 08/22/19 Unknown History HYDROcodone/APAP 5-325 [[place] 1 each PO Q6HR PRN 08/22/19 08/22/19 Unknown History 5/325] Ibuprofen [Motrin] 600 mg PO Q8H PRN 08/22/19 08/22/19 Unknown History Lisinopril [Zestril TAB] 10 mg PO QDAY 08/22/19 08/22/19 Unknown History Loperamide [Imodium] 2 mg PO BID PRN 08/22/19 08/22/19 Unknown History Magnesium Hydroxide [Milk of 400 mg PO Q24HR PRN 08/22/19 08/22/19 Unknown History Magnesia] Melatonin 3 mg PO QHS 08/22/19 08/22/19 Unknown History Multivit with Minerals No.55 1 tab PO DAILY 08/22/19 08/22/19 Unknown History Pantoprazole [Protonix] 40 mg PO QDAY 08/22/19 08/22/19 Unknown History Sennosides/Docusate Sodium [Senna 1 each PO DAILY 08/22/19 08/22/19 Unknown History Plus Tablet] diphenhydrAMINE [Benadryl CAP] 25 mg PO Q6HR PRN 08/22/19 08/22/19 Unknown History Active Medications: Generic Name Dose Route Start Last Admin Trade Name Freq PRN Reason Stop Dose Admin Lipase/Protease/Amylase 1 each 08/26/19 12:00 Iván Solano 10,500 Unit FEEDTUBE PRN PRN For Clogged Feeding Tube Dextrose 50 ml 08/28/19 07:56 D50w (25gm) Syringe IV Q30MIN PRN Hypoglycemia Ferrous Sulfate 308 mg 09/02/19 10:00 09/06/19 09:49 Ferrous Sulfate PO 308 mg QDAY KJ Administration Hydromorphone HCl 0.25 mg 08/31/19 13:03 09/07/19 03:11 Dilaudid IV 0.25 mg Q6H PRN Administration Pain , Severe (7-10) Dextrose 1,000 mls @ 75 mls/hr 09/04/19 11:00 09/06/19 19:21 D5w IV 75 mls/hr DIRECT KJ Administration Insulin Human Lispro 0 unit 08/28/19 08:00 09/07/19 06:50 Humalog SUB-Q Not Given Q6HR [facility] Protocol Lactulose 20 gm 08/27/19 14:00 09/07/19 05:22 Cephulac PO Not Given Q8HR [facility] Lansoprazole 30 mg 08/27/19 10:00 09/06/19 22:38 Prevacid Solutab FEEDTUBE 30 mg BID KJ Administration Nadolol 20 mg 08/27/19 11:00 09/06/19 09:48 Corgard PO 20 mg QDAY KJ Administration Oxycodone/Acetaminophen 1 tab 09/04/19 14:40 09/05/19 10:00 Percocet 5/325 PO 1 tab Q6H PRN Administration Pain, Moderate (4-6) Simple Syrup 15 ml 08/26/19 12:00 Simple Syrup FEEDTUBE PRN PRN Hypoglycemia Simple Syrup 30 ml 08/26/19 12:00 Simple Syrup FEEDTUBE PRN PRN Hypoglycemia Sodium Bicarbonate 325 mg 08/26/19 12:00 Sodium Bicarbonate FEEDTUBE PRN PRN For Clogged Feeding Tube Sodium Chloride 10 ml 08/22/19 22:00 09/06/19 23:52 Sodium Chloride Flush Syringe 10 Ml IV 10 ml BID KJ Administration Sodium Chloride 10 ml 08/22/19 21:11 08/30/19 10:08 Sodium Chloride Flush Syringe 10 Ml IV 10 ml PRN PRN Administration LINE FLUSH
--- NOTE | 2019-09-07 08:55 | Progress Note ---
Assessment and Plan - Patient Problems (1) Dysphagia Current Visit: Yes Status: Acute Qualifiers: Dysphagia type: unspecified Qualified Code(s): R13.10 - Dysphagia, unspecified Plan to address problem: Pt stable. Pt in need of feeding access due to dysphagia and multiple medical problems. Will plan for feeding tube placement in stomach, but would be best done in the OR. Telephone consent obtained yesterday from Adore Orta. Pt scheduled for tomorrow around 12pm. Please call with questions. time=10min Subjective Date of service: 09/07/19 Patient Reports: Positive: other (no new issues) Objective Vital Signs - 12hr 09/06/19 09/07/19 22:54 05:51 Temperature 98.8 F 98.1 F Pulse Rate 82 86 Respiratory 18 20 Rate Blood Pressure 117/68 150/75 O2 Sat by Pulse 96 95 Oximetry - General physical appearance no distress, no pain - ENT other (DHT in place) - Respiratory normal expansion, normal respiratory effort - Abdomen soft, not tender, bowel sounds hypoactive, not distended, not guarding, not rigid - Integumentary no rash, no growths, no abnormal pigmentation - Labs 09/06/19 04:50 09/06/19 04:50 - Imaging Abdominal x-ray: report reviewed, image reviewed
[2019-09-07] MEDS: DEXTROSE 5% IN WATER 1,000 ML IV SCH ×2 (10:19→22:56)
[2019-09-07] MEDS: LANSOPRAZOLE 30 MG SOLUTAB FEEDTUBE SCH ×2 (10:21→22:44)
[2019-09-07] MEDS: FERROUS SULFATE 308 MG (62mg Elemental Iron) / 7 ML ELIXIR PO SCH (10:21)
[2019-09-07] MEDS: NADOLOL 20 MG TAB PO SCH (10:21)
--- NOTE | 2019-09-07 12:16 | Progress Note ---
Assessment and Plan /Dysphagia with aspiration risk and Abnormal swallow eval; Speech Therapist recommend PEG placement Family, agreed for PEG , GI evaluated , recommend surgical placement of PEG Dr. Thomas surgeon possible PEG on 09/08/2019 /-Hypernatremia; resolved, Na was upto 170 Continue IV D5W, free water flushes via NG tube monitor electrolytes /-Hepatic encephalopathy-Acute on chronic Continue lactulose, patient is more alert and awake now Supportive care. Ammonia levels improved to normal range /-Complicated UTI; completed antibiotics Rocephin monitor off antibiotics /-Sepsis secondary to complicated UTI; off antibiotics /-Leukemoid reaction; resolved /-LAVONNE/ Vasomotor nephropathy/obstructive uropathy/ Resolved /GI Bleed: s/p IV Octreotide/PPI IV - s/p 3 units PRBC transfusion - no EGD at this time per GI, otherwise medically stable /History of left AKA; supportive care /-History of CVA with residual weakness; Physical therapy supportive care /-Coagulopathy; secondary to cirrhosis monitor for bleeding /-Cirrhosis liver with History VARICES; No active GI bleeding closely monitor Cause likely from h/o portal vein thrombosis per GI /-DVT prophylaxis; SCDs No pharmacologic anticoagulation in view of coagulopathy /-hx of protein S deficiency with a prior portal vein thrombosis requiring extensive abdominal surgery will f/u with hematology for AC recommendation --DO NOT RESUSCITATE status --Patient is critically ill with very poor prognosis Recommend hospice, Hospice consult Plan of care reviewed in detail with the patient's daughter over the phone Disposition ; follow PEG placement , discharge to SNF when medically stable Brief History The patient is a 64 YO male from [facility] with history significant for DM, HTN, Cirrhosis w/ varices, CVA and CAD who was brought to [facility] ED for evaluation of AMS and abdominal distention. The patient was not able to provide any history. He was also found to have hemetemesis. His labs are significant for creat 15.2, K 7.2, HB 7.[address] abdomen showed obstructive uropathy. He was placed on ferguson catheter and called for admission. Na level trended upto 170. Hospitalist Physical General appearance: Present: no acute distress, well-nourished, other (noncommunicative) - EENT Eyes: Present: PERRL, EOM intact - Neck Neck: Present: supple, normal ROM - Respiratory Respiratory effort: normal Respiratory: bilateral: diminished, negative: rales, rhonchi, wheezing - Cardiovascular Rhythm: regular Heart Sounds: Present: S1 & S2 - Extremities Extremities: no ischemia Extremity abnormal: edema - Abdominal General gastrointestinal: soft, non-tender, non-distended, normal bowel sounds - Integumentary Integumentary: Present: clear, warm - Psychiatric Psychiatric: other (Noncommunicative) - Neurologic Neurologic: other (Noncommunicative, residual weakness) Subjective Date of service: 09/07/19 Principal diagnosis: anemia Interval history: Patient seen and examined. Medical records and medication list reviewed. No acute event overnight noted by the RN. Patient remained on TF Plan for PEG tomorrow Objective - Constitutional Vitals: Vital Signs - 12hr 09/07/19 05:51 Temperature 98.1 F Pulse Rate 86 Respiratory 20 Rate Blood Pressure 150/75 O2 Sat by Pulse 95 Oximetry - Labs CBC & Chem 7: 09/06/19 04:50 09/06/19 04:50 Labs: Abnormal lab results 09/06/19 09/06/19 09/07/19 Range/Units 12:04 19:16 00:13 POC Glucose 125 H 115 H 126 H (70-105) 09/07/19 Range/Units 06:41 POC Glucose 119 H (70-105)
--- NOTE | 2019-09-07 14:59 | Anesthesia Consultation ---
<SIMON GARVIN - Last Filed: 09/07/19 14:55> Anesthesia Consult and Med Hx Date of service: 09/07/19 - Airway Anesthetic Teeth Evaluation: Good ROM Head & Neck: Adequate Mental/Hyoid Distance: Adequate Mallampati Class: Class II Intubation Access Assessment: Probably Good - Pre-Operative Health Status ASA Pre-Surgery Classification: ASA3 Proposed Anesthetic Plan: MAC - Pulmonary Hx Smoking: Yes (1 ppd x 20yrs) Hx Asthma: No SOB: Yes (Bipap on this admission) COPD: No Hx Pneumonia: No - Cardiovascular System Hx Hypertension: Yes Hx Coronary Artery Disease: Yes Hx Heart Attack/AMI: Yes (X2) Hx Pacemaker: Yes Hx Internal Defibrillator: No Hx Peripheral Vascular Disease: Yes (Left AKA) - Central Nervous System CVA: Yes (L sided weakness/deficits, dysarthria) Hx Psychiatric Problems: No - Gastrointestinal Hx Ulcer: Yes (GI bleed) - Endocrine Hx End Stage Renal Disease: No Hx Cirrhosis: Yes (Varices ) Hx Liver Disease: Yes Hx Non-Insulin Dependent Diabetes: Yes - Hematic Hx Anemia: Yes - Other Systems Hx Alcohol Use: No Hx Substance Use: No Hx Cancer: No Hx Obesity: Yes <BRENT COLINDRES - Last Filed: 09/08/19 11:21> Anesthesia Consult and Med Hx - Pre-Operative Health Status Proposed Anesthetic Plan: General (procedure to be performed laparoscopically; plan GETA)
[2019-09-08] MEDS: HYDROmorphone 1 MG/1 ML INJ IV PRN ×2 (00:38→22:11)
[2019-09-08] MEDS: INSULIN LISPRO 100 UNIT/ML SUB-Q SCH ×4 (00:45→18:46)
[2019-09-08] MEDS: LACTULOSE 20 GM/30 ML ORAL LIQD PO SCH ×3 (06:31→21:26)
--- NOTE | 2019-09-08 07:58 | Hem/Onc Progress Note ---
Assessment and Plan 1. h/o Leukocytosis - 40s, likely reactive. Predominant neutrophil, anemia. MCV is normal. 2. Platelet count is normal. 3. Electrolyte abnormality. 4. History of gastrointestinal bleed. 5. Mention of hepatic encephalopathy. 6. We will observe the trend of white cell count and follow the trend of platelet count. h/o left BKA h/o CVA NGT h/o cirrhosis - CT in aug 2019 - no mention of same s iron low - oral iron trial b12 - folate normal wbc better - follow as per RN - PEG today anemia - hb at one time was 6.7 - on oral iron - Patient Problems (1) Leukocytosis Current Visit: No Status: Acute Qualifiers: Leukocytosis type: leukemoid reaction Qualified Code(s): D72.823 - Le ukemoid reaction Subjective Date of service: 09/08/19 Principal diagnosis: anemia Interval history: due PEG Objective - Exam Narrative Exam: Pain - none General appearance - awake - NGT Performance status complete dependence Eyes - no icterus ENT - NGT LNs cervical not palpable Neck - no LN Respiratory Normal Breath sounds - CTA anteriorly CVS S1 S2 + Extremities no edema General GI Soft Rectal deferred male - deferred Skin warm Musculoskeletal h/o CVA - left BKA Neurologically awake - slurred speech - h/o CVA - Constitutional Vitals: Last Vital Signs Temp 98.5 F 09/08/19 05:44 Pulse 72 09/08/19 05:44 Resp 20 09/08/19 05:44 BP 145/74 09/08/19 05:44 Pulse Ox 96 09/08/19 05:44 - Labs Lab Results: Laboratory Results - last 24 hr 09/07/19 09/07/19 09/07/19 13:10 19:07 23:29 POC Glucose 128 H 130 H 107 H 09/08/19 05:54 POC Glucose 102 Medications & Allergies - Medications Allergies/Adverse Reactions: Allergies No Known Allergies Allergy (Unverified 07/11/13 08:29) Home Medications: Home Medications Medication Instructions Recorded Confirmed Last Taken Type Apixaban [Eliquis] 5 mg PO BID 08/22/19 08/22/19 Unknown History Ascorbic Acid [Vitamin C] 500 mg PO Q12H 08/22/19 08/22/19 Unknown History AtorvaSTATin [Lipitor] 40 mg PO QHS 08/22/19 08/22/19 Unknown History Carvedilol [Coreg] 6.25 mg PO BID 08/22/19 08/22/19 Unknown History Dicyclomine [Bentyl] 20 mg PO QID PRN 08/22/19 08/22/19 Unknown History Docusate Sodium [Colace] 100 mg PO BID 08/22/19 08/22/19 Unknown History Flomax 0.4 mg PO QHS 08/22/19 08/22/19 Unknown History Folic Acid [Folvite] 1 mg PO QDAY 08/22/19 08/22/19 Unknown History HYDROcodone/APAP 5-325 [[place] 1 each PO Q6HR PRN 08/22/19 08/22/19 Unknown History 5/325] Ibuprofen [Motrin] 600 mg PO Q8H PRN 08/22/19 08/22/19 Unknown History Lisinopril [Zestril TAB] 10 mg PO QDAY 08/22/19 08/22/19 Unknown History Loperamide [Imodium] 2 mg PO BID PRN 08/22/19 08/22/19 Unknown History Magnesium Hydroxide [Milk of 400 mg PO Q24HR PRN 08/22/19 08/22/19 Unknown History Magnesia] Melatonin 3 mg PO QHS 08/22/19 08/22/19 Unknown History Multivit with Minerals No.55 1 tab PO DAILY 08/22/19 08/22/19 Unknown History Pantoprazole [Protonix] 40 mg PO QDAY 08/22/19 08/22/19 Unknown History Sennosides/Docusate Sodium [Senna 1 each PO DAILY 08/22/19 08/22/19 Unknown History Plus Tablet] diphenhydrAMINE [Benadryl CAP] 25 mg PO Q6HR PRN 08/22/19 08/22/19 Unknown History Active Medications: Generic Name Dose Route Start Last Admin Trade Name Freq PRN Reason Stop Dose Admin Lipase/Protease/Amylase 1 each 08/26/19 12:00 Ivná Solano 10,500 Unit FEEDTUBE PRN PRN For Clogged Feeding Tube Dextrose 50 ml 08/28/19 07:56 D50w (25gm) Syringe IV Q30MIN PRN Hypoglycemia Ferrous Sulfate 308 mg 09/02/19 10:00 09/07/19 10:21 Ferrous Sulfate PO 308 mg QDAY KJ Administration Hydromorphone HCl 0.25 mg 08/31/19 13:03 09/08/19 00:38 Dilaudid IV 0.25 mg Q6H PRN Administration Pain , Severe (7-10) Dextrose 1,000 mls @ 75 mls/hr 09/04/19 11:00 09/07/19 22:56 D5w IV 75 mls/hr DIRECT KJ Administration Cefazolin Sodium 2 gm in 20 mls @ 80 mls/hr 09/09/19 06:00 Ancef/Sterile Water 2 Gm/20 Ml IV 09/09/19 23:00 PREOP NR Insulin Human Lispro 0 unit 08/28/19 08:00 09/08/19 06:31 Humalog SUB-Q Not Given Q6HR [facility] Protocol Lactulose 20 gm 08/27/19 14:00 09/08/19 06:31 Cephulac PO Not Given Q8HR KJ Lansoprazole 30 mg 08/27/19 10:00 09/07/19 22:44 Prevacid Solutab FEEDTUBE 30 mg BID KJ Administration Nadolol 20 mg 08/27/19 11:00 09/07/19 10:21 Corgard PO 20 mg QDAY KJ Administration Oxycodone/Acetaminophen 1 tab 09/04/19 14:40 09/05/19 10:00 Percocet 5/325 PO 1 tab Q6H PRN Administration Pain, Moderate (4-6) Simple Syrup 15 ml 08/26/19 12:00 Simple Syrup FEEDTUBE PRN PRN Hypoglycemia Simple Syrup 30 ml 08/26/19 12:00 Simple Syrup FEEDTUBE PRN PRN Hypoglycemia Sodium Bicarbonate 325 mg 08/26/19 12:00 Sodium Bicarbonate FEEDTUBE PRN PRN For Clogged Feeding Tube Sodium Chloride 10 ml 08/22/19 22:00 09/07/19 22:44 Sodium Chloride Flush Syringe 10 Ml IV Not Given BID KJ Sodium Chloride 10 ml 08/22/19 21:11 09/08/19 00:45 Sodium Chloride Flush Syringe 10 Ml IV 10 ml PRN PRN Administration LINE FLUSH
[2019-09-08] MEDS ORDERED: BUPIVACAINE/PF (0.25%) 2.5 MG/ML 30 ML VIAL INFILTRATI ONE (11:13)
[2019-09-08] MEDS ORDERED: METHYLENE BLUE 50 MG/10 ML AMP ONE (11:14)
--- NOTE | 2019-09-08 11:21 | Anesthesia Day of Surgery ---
Anesthesia Day of Surgery - Day of Surgery Patient Examined: Yes Patient H&P Reviewed: Yes Patient is NPO: Yes
[2019-09-08] MEDS ORDERED: fentaNYL 100 MCG/2 ML INJ IV PRN (11:22)
[2019-09-08] MEDS ORDERED: LIDOCAINE (1%) 10 MG/1 ML VIAL 20 ML MDV ONE (11:40)
[2019-09-08] MEDS ORDERED: BUPIVACAINE-EPINEPHRINE/PF 0.25%-1:200,000 (30 ML) VIAL INFILTRATI ONE (11:40)
[2019-09-08] MEDS ORDERED: BUPIVACAINE-EPINEPHRINE/PF 0.5%-1:200,000 (30 ML) VIAL INFILTRATI ONE (11:41)
[2019-09-08] MEDS ORDERED: LACTATED RINGERS 1,000 ML IV SCH (12:00)
[2019-09-08] MEDS ORDERED: PROPOFOL 200 MG/20 ML VIAL IV ONE (12:08)
[2019-09-08] MEDS ORDERED: fentaNYL 100 MCG/2 ML INJ ONE (12:08)
[2019-09-08] MEDS ORDERED: LIDOCAINE MPF (2%) 20 MG/1 ML VIAL 5 ML ONE (12:09)
[2019-09-08] MEDS ORDERED: ROCURONIUM 50 MG/5 ML INJ IV ONE (12:10)
[2019-09-08] MEDS ORDERED: LIDOCAINE (1%) 10 MG/1 ML VIAL 20 ML MDV INFILTRATI ONE ×2 (13:00)
[2019-09-08] MEDS ORDERED: BUPIVACAINE-EPINEPHRINE/PF 0.5%-1:200,000 (10 ML) VIAL INFILTRATI ONE ×2 (13:00)
[2019-09-08] MEDS ORDERED: NEOSTIGMINE 10MG/10 ML INJ MDV ONE (13:41)
[2019-09-08] MEDS ORDERED: GLYCOPYRROLATE 0.4 MG/2 ML INJ ONE (13:41)
[2019-09-08] MEDS ORDERED: PHENYLEPHRINE/NS 1,000 MCG/10 ML SYRINGE (OR USE) IV ONE (13:43)
[2019-09-08] MEDS ORDERED: ONDANSETRON 4 MG/2 ML INJ ONE (13:54)
--- NOTE | 2019-09-08 13:54 | Post Operative Note ---
Date of procedure: 09/08/19 (dictation:[id number]) Pre-op diagnosis: dysphagia Post-op diagnosis: same Findings: frozen abdomen dense adhesions. Procedure: Attempted standard PEG Attempted Dx Lap Open G-tube placement IVF 500cc EBL min Anesthesia: PHIL Surgeon: BLAYNE AMES Shotweld Operator: RODRIGO MENEZES (see her op note) Estimated blood loss: minimal Pathology: none Condition: stable Disposition: PACU
--- NOTE | 2019-09-08 14:25 | Operative Report ---
Operative Report Operative Report: DATE: 09/08/2019 SURGEON: RODRIGO MENEZES MD PRE-OP DX: DYSPHAGIA POST- OP DX: DYSPHAGIA, DIFFUSE GASTROPATHY PROCEDURE: EGD WITH ASSISTANCE OF PERCUTANEOUS GASTROSTOMY TUBE PLACEMENT ANESTHESIA: GETA FINDINGS: DIFFUSE GASTROPATHY, NO VISIBLE SUB-MUCOSAL VARICES INDICATION: 64 YEAR OLD MALE WITH A COMPLICATED MEDICAL AND SURGICAL HISTORY. PRESENTLY HAS DYSPHAGIA AND IS LIKELY UNABLE TO HAVE AN ENDOSCOPIC PLACEMENT OF GASTROSTOMY TUBE PLACED AT THE BEDSIDE DUE TO ABDOMINAL ANATOMY. DETAILS OF PROCEDURE: THE PATIENT WAS BROUGHT INTO THE OR AND LAID IN SUPINE POSITION. GENERAL ANESTHESIA WAS INDUCED WITH SUCCESSFUL ENDOTRACHEAL INTUBATION. AFTER A TIME OUT WAS PERFORMED, A BITE BLOCK WAS PLACED IN THE PATIENT'S MOUTH. THE EGD SCOPE WAS CAREFULLY GUIDED BEYOND THE LEANNE-PHARYNX UNDER DIRECT VISUALIZATION. THE PREVIOUSLY INSERTED NASAL GASTRIC TUBE WAS IN PLACE AND USED A GUIDE TO MANEUVER PAST THE ENDOTRACHEAL TUBE. THE MUCOSA OF THE ESOPHAGUS WAS EXAMINED CAREFULLY. NO VARICES WERE APPRECIATED. THE GE JUNCTION WAS NOTED TO BE ABOUT 40CM FROM THE INCISORS. ONCE PAST THE GE JUNCTION, THE STOMACH DISTENDED PROPERLY. NO MASSES, ULCERS, OR LESIONS WERE APPRECIATED. THERE WAS NOTED TO BE DIFFUSE GASTRITIS. UPON RETRO-FLEXION THERE WAS AGAIN NOTICED TO BE NO SIGNIFICANT VARICES OR OTHER PATHOLOGY AT THE GE JUNCTION AND CARDIA. AFTER THE PEG TUBE WAS PLACE IN THE BODY OF THE STOMACH, THE POSITION WAS VERIFIED AND FOUND TO BE SATISFACTORY WITH NO SIGNIFICANT BLEEDING. EXCESS AIR AND SECRETIONS WERE ASPIRATED UPON WITHDRAWAL OF THE SCOPE. SPECIMEN: NONE COMPLICATIONS: NONE IMMEDIATE
--- NOTE | 2019-09-08 15:26 | Post Anesthesia Evaluation ---
- Post Anesthesia Evaluation Patient Participated: Yes Airway Patent: Yes Stable Respiratory Function: Yes Nausea/Vomiting: No Temp > 96.8F: Yes Pain Manageable: Yes Adequeate Hydration: Yes Anesthesia Complications: No
--- NOTE | 2019-09-08 16:00 | Progress Note ---
Assessment and Plan /Dysphagia with aspiration risk and Abnormal swallow eval; Speech Therapist recommend PEG placement Family, agreed for PEG , GI evaluated , recommend surgical placement of PEG Dr. Thomas planned for PEG on 09/08/2019 - today /-Hypernatremia; resolved, Na was upto 170 Continue IV D5W, free water flushes via NG tube monitor electrolytes /-Hepatic encephalopathy-Acute on chronic Continue lactulose, patient is more alert and awake now Supportive care. Ammonia levels improved to normal range /-Complicated UTI; completed antibiotics Rocephin monitor off antibiotics /-Sepsis secondary to complicated UTI; off antibiotics /-Leukemoid reaction; resolved /-LAVONNE/ Vasomotor nephropathy/obstructive uropathy/ Resolved /GI Bleed: s/p IV Octreotide/PPI IV - s/p 3 units PRBC transfusion - no EGD at this time per GI, otherwise medically stable /History of left AKA; supportive care /-History of CVA with residual weakness; Physical therapy supportive care /-Coagulopathy; secondary to cirrhosis monitor for bleeding /-Cirrhosis liver with History VARICES; No active GI bleeding closely monitor Cause likely from h/o portal vein thrombosis per GI /-DVT prophylaxis; SCDs No pharmacologic anticoagulation in view of coagulopathy /-hx of protein S deficiency with a prior portal vein thrombosis requiring extensive abdominal surgery will f/u with hematology for AC recommendation --DO NOT RESUSCITATE status --Patient is critically ill with very poor prognosis Recommend hospice, Hospice consult Plan of care reviewed in detail with the patient's daughter over the phone Disposition ; follow PEG placement , discharge to SNF when medically stable Brief History The patient is a 64 YO male from group home with history significant for DM, HTN, Cirrhosis w/ varices, CVA and CAD who was brought to [facility] ED for evaluation of AMS and abdominal distention. The patient was not able to provide any histor y. He was also found to have hemetemesis. His labs are significant for creat 15.2, K 7.2, HB 7.[address] abdomen showed obstructive uropathy. He was placed on ferguson catheter and called for admission. Na level trended upto 170. Hospitalist Physical General appearance: Present: no acute distress, well-nourished, other (noncommunicative) - EENT Eyes: Present: PERRL, EOM intact - Neck Neck: Present: supple, normal ROM - Respiratory Respiratory effort: normal Respiratory: bilateral: diminished, negative: rales, rhonchi, wheezing - Cardiovascular Rhythm: regular Heart Sounds: Present: S1 & S2 - Extremities Extremities: no ischemia Extremity abnormal: edema - Abdominal General gastrointestinal: soft, non-tender, non-distended, normal bowel sounds - Integumentary Integumentary: Present: clear, warm - Psychiatric Psychiatric: other (Noncommunicative) - Neurologic Neurologic: other (Noncommunicative, residual weakness) Subjective Date of service: 09/08/19 Principal diagnosis: anemia Interval history: Patient seen and examined. Medical records and medication list reviewed. No acute event overnight noted by the RN. TF off this am Plan for PEG today Objective - Constitutional Vitals: Vital Signs - 12hr 09/08/19 09/08/19 09/08/19 05:44 11:30 13:58 Temperature 98.5 F 98.7 F 97.8 F Pulse Rate 72 84 91 H Respiratory 20 22 18 Rate Blood Pressure 145/74 155/78 124/71 O2 Sat by Pulse 96 99 99 Oximetry 09/08/19 09/08/19 09/08/19 14:05 14:10 14:15 Temperature Pulse Rate 91 H 80 77 Respiratory 19 20 20 Rate Blood Pressure 118/66 122/60 120/57 O2 Sat by Pulse 96 97 97 Oximetry 09/08/19 09/08/19 09/08/19 14:30 14:40 14:45 Temperature Pulse Rate 76 75 Respiratory 19 19 19 Rate Blood Pressure 116/74 122/65 O2 Sat by Pulse 97 97 Oximetry 09/08/19 09/08/19 09/08/19 14:59 15:20 15:25 Temperature 98.4 F 98.2 F 98.2 F Pulse Rate 78 82 Respiratory 19 22 22 Rate Blood Pressure 127/86 127/65 127/65 O2 Sat by Pulse 97 Oximetry 09/08/19 15:30 Temperature Pulse Rate Respiratory 22 Rate Blood Pressure O2 Sat by Pulse Oximetry - Labs CBC & Chem 7: 09/09/19 07:14 09/09/19 07:14 Labs: Abnormal lab results 09/07/19 09/07/19 09/08/19 Range/Units 19:07 23:29 14:12 POC Glucose 130 H 107 H 126 H (70-105)
[2019-09-08] MEDS: FERROUS SULFATE 308 MG (62mg Elemental Iron) / 7 ML ELIXIR PO SCH (16:33)
[2019-09-08] MEDS: LANSOPRAZOLE 30 MG SOLUTAB FEEDTUBE SCH ×2 (16:33→21:26)
[2019-09-08] MEDS: NADOLOL 20 MG TAB PO SCH (16:33)
[2019-09-08] MEDS: DEXTROSE 5% IN WATER 1,000 ML IV SCH (16:44)
[2019-09-09] MEDS: INSULIN LISPRO 100 UNIT/ML SUB-Q SCH ×4 (00:45→18:11)
[2019-09-09] MEDS: LACTULOSE 20 GM/30 ML ORAL LIQD PO SCH ×3 (05:19→22:23)
[2019-09-09] MEDS: DEXTROSE 5% IN WATER 1,000 ML IV SCH ×2 (05:58→18:52)
[2019-09-09] MEDS ORDERED: ceFAZolin/Water 2 GM/20 ML 2 GM/20 ML SYRINGE IV NR (06:00)
--- NOTE | 2019-09-09 07:06 | Hem/Onc Progress Note ---
Assessment and Plan 1. h/o Leukocytosis - 40s, likely reactive. Predominant neutrophil, anemia. MCV is normal. 2. Platelet count is normal. 3. Electrolyte abnormality. 4. History of gastrointestinal bleed. 5. Mention of hepatic encephalopathy. 6. We will observe the trend of white cell count and follow the trend of platelet count. h/o left BKA h/o CVA NGT h/o cirrhosis - CT in aug 2019 - no mention of same s iron low - oral iron trial b12 - folate normal wbc better - follow anemia - hb at one time was 6.7 - on oral iron - Patient Problems (1) Leukocytosis Current Visit: No Status: Acute Qualifiers: Leukocytosis type: leukemoid reaction Qualified Code(s): D72.823 - Leukemoid reaction Subjective Date of service: 09/09/19 Principal diagnosis: anemia Interval history: s/p PEG Objective - Exam Narrative Exam: Pain - none General appearance - awake Performance status complete dependence Eyes - no icterus ENT - NGT LNs cervical not palpable Neck - no LN Respiratory Normal Breath sounds - CTA anteriorly CVS S1 S2 + Extremities no edema General GI Soft - PEG Rectal deferred male - deferred Skin warm Musculoskeletal h/o CVA - left BKA Neurologically awake - slurred speech - h/o CVA - Constitutional Vitals: Last Vital Signs Temp 98.5 F 09/09/19 05:29 Pulse 104 H 09/09/19 05:29 Resp 18 09/09/19 05:29 BP 108/51 09/09/19 05:29 Pulse Ox 97 09/09/19 05:29 - Labs Lab Results: Laboratory Results - last 24 hr 09/08/19 09/08/19 09/08/19 05:54 14:12 17:57 POC Glucose 102 126 H 123 H 09/09/19 09/09/19 00:41 06:10 POC Glucose 96 110 H Medications & Allergies - Medications Allergies/Adverse Reactions: Allergies No Known Allergies Allergy (Unverified 07/11/13 08:29) Home Medications: Home Medications Medication Instructions Recorded Confirmed Last Taken Type Apixaban [Eliquis] 5 mg PO BID 08/22/19 08/22/19 Unknown History Ascorbic Acid [Vitamin C] 500 mg PO Q12H 08/22/19 08/22/19 Unknown History AtorvaSTATin [Lipitor] 40 mg PO QHS 08/22/19 08/22/19 Unknown History Carvedilol [Coreg] 6.25 mg PO BID 08/22/19 08/22/19 Unknown History Dicyclomine [Bentyl] 20 mg PO QID PRN 08/22/19 08/22/19 Unknown History Docusate Sodium [Colace] 100 mg PO BID 08/22/19 08/22/19 Unknown History Flomax 0.4 mg PO QHS 08/22/19 08/22/19 Unknown History Folic Acid [Folvite] 1 mg PO QDAY 08/22/19 08/22/19 Unknown History HYDROcodone/APAP 5-325 [[place] 1 each PO Q6HR PRN 08/22/19 08/22/19 Unknown History 5/325] Ibuprofen [Motrin] 600 mg PO Q8H PRN 08/22/19 08/22/19 Unknown History Lisinopril [Zestril TAB] 10 mg PO QDAY 08/22/19 08/22/19 Unknown History Loperamide [Imodium] 2 mg PO BID PRN 08/22/19 08/22/19 Unknown History Magnesium Hydroxide [Milk of 400 mg PO Q24HR PRN 08/22/19 08/22/19 Unknown History Magnesia] Melatonin 3 mg PO QHS 08/22/19 08/22/19 Unknown History Multivit with Minerals No.55 1 tab PO DAILY 08/22/19 08/22/19 Unknown History Pantoprazole [Protonix] 40 mg PO QDAY 08/22/19 08/22/19 Unknown History Sennosides/Docusate Sodium [[place]enna 1 each PO DAILY 08/22/19 08/22/19 Unknown History Plus Tablet] diphenhydrAMINE [Benadryl CAP] 25 mg PO Q6HR PRN 08/22/19 08/22/19 Unknown History Active Medications: Generic Name Dose Route Start Last Admin Trade Name Freq PRN Reason Stop Dose Admin Lipase/Protease/Amylase 1 each 08/26/19 12:00 Iván Solano 10,500 Unit FEEDTUBE PRN PRN For Clogged Feeding Tube Dextrose 50 ml 08/28/19 07:56 D50w (25gm) Syringe IV Q30MIN PRN Hypoglycemia Ferrous Sulfate 308 mg 09/02/19 10:00 09/08/19 16:33 Ferrous Sulfate PO Not Given QDAY KJ Hydromorphone HCl 0.25 mg 08/31/19 13:03 09/08/19 22:11 Dilaudid IV 0.25 mg Q6H PRN Administration Pain , Severe (7-10) Dextrose 1,000 mls @ 75 mls/hr 09/04/19 11:00 09/09/19 05:58 D5w IV 75 mls/hr DIRECT KJ Administration Cefazolin Sodium 2 gm in 20 mls @ 80 mls/hr 09/09/19 06:00 Ancef/Sterile Water 2 Gm/20 Ml IV 09/09/19 23:00 PREOP NR Lactated Ringer's 1,000 mls @ 100 mls/hr 09/08/19 12:00 09/08/19 12:00 Lactated Ringers IV 09/09/19 11:59 100 mls/hr DIRECT KJ Administration Insulin Human Lispro 0 unit 08/28/19 08:00 09/09/19 00:45 Humalog SUB-Q Not Given Q6HR [facility] Protocol Lactulose 20 gm 08/27/19 14:00 09/09/19 05:19 Cephulac PO Not Given Q8HR [facility] Lansoprazole 30 mg 08/27/19 10:00 09/08/19 21:26 Prevacid Solutab FEEDTUBE Not Given BID [facility] Nadolol 20 mg 08/27/19 11:00 09/08/19 16:33 Corgard PO Not Given QDAY [facility] Oxycodone/Acetaminophen 1 tab 09/04/19 14:40 09/05/19 10:00 Percocet 5/325 PO 1 tab Q6H PRN Administration Pain, Moderate (4-6) Simple Syrup 15 ml 08/26/19 12:00 Simple Syrup FEEDTUBE PRN PRN Hypoglycemia Simple Syrup 30 ml 08/26/19 12:00 Simple Syrup FEEDTUBE PRN PRN Hypoglycemia Sodium Bicarbonate 325 mg 08/26/19 12:00 Sodium Bicarbonate FEEDTUBE PRN PRN For Clogged Feeding Tube Sodium Chloride 10 ml 08/22/19 22:00 09/08/19 22:00 Sodium Chloride Flush Syringe 10 Ml IV 10 ml BID KJ Administration Sodium Chloride 10 ml 08/22/19 21:11 09/08/19 00:45 Sodium Chloride Flush Syringe 10 Ml IV 10 ml PRN PRN Administration LINE FLUSH
[2019-09-09 07:35] LABS: Basophils # (Auto) 0.2 K/mm3 (0.0-0.1); Basophils % (Auto) 1.2 % (0.0-1.8); Eosinophils # (Auto) 0.2 K/mm3 (0.0-0.4); Eosinophils % (Auto) 1.1 % (0.0-4.3); Hematocrit 30.2 % (35.5-45.6); Hemoglobin 9.3 gm/dl (11.8-15.2); Lymphocytes # (Auto) 1.8 K/mm3 (1.2-5.4); Lymphocytes % (Auto) 9.7 % (13.4-35.0); Mean Corpuscular HGB Conc 31 % (32-34); Mean Corpuscular Volume 88 fl (84-94); Monocytes # (Auto) 1.8 K/mm3 (0.0-0.8); Monocytes % (Auto) 9.5 % (0.0-7.3); Platelet Count 263 K/mm3 (140-440); Red Blood Count 3.44 M/mm3 (3.65-5.03)
[2019-09-09 07:41] LABS: Red Cell Distribution Width 22.6 % (13.2-15.2)
[2019-09-09 07:53] LABS: BUN/Creatinine Ratio 16; Blood Urea Nitrogen 11 mg/dL (9-20); Calcium 7.7 mg/dL (8.4-10.2); Hemolysis Index 6
--- NOTE | 2019-09-09 09:31 | Progress Note ---
Assessment and Plan - Patient Problems (1) Dysphagia Current Visit: Yes Status: Acute Qualifiers: Dysphagia type: unspecified Qualified Code(s): R13.10 - Dysphagia, unspecified Plan to address problem: Pt stable. s/p open G-tube placement (09/08/19) - POD#1. Appears to be doing well. Abd exam is unremarkable, especially in LLQ area. Good bowel sounds. Leukocytosis is probably reactive. Rec: 1) start tube feeds and meds today via G-tube 2) CBC in AM If does well today and WBC coming down tomorrow, ok to transfer tomorrow to rehab from my standpoint. Please call with questions. Subjective Date of service: 09/09/19 Patient Reports: Positive: other (no events o/n. minimal pain). Negative: nausea, vomiting Objective Vital Signs - 12hr 09/08/19 09/09/19 22:56 05:29 Temperature 98.4 F 98.5 F Pulse Rate 62 104 H Respiratory 18 18 Rate Blood Pressure 108/51 Blood Pressure 119/69 [Right] O2 Sat by Pulse 96 97 Oximetry - General physical appearance no distress, no pain, other (looks well. easily awakened. ) - Respiratory normal expansion, normal respiratory effort - Abdomen soft, not tender, bowel sounds normal, not distended, not guarding, not rigid, other (PEG in place. bandages dry) - Integumentary no rash, no growths, no abnormal pigmentation - Labs 09/09/19 07:14 09/09/19 07:14 Diabetes panel 09/09/19 Range/Units 07:14 Sodium 137 (137-145) mmol/L Potassium 3.8 (3.6-5.0) mmol/L Chloride 101.1 (98-107) mmol/L Carbon Dioxide 26 (22-30) mmol/L BUN 11 (9-20) mg/dL Creatinine 0.7 L (0.8-1.5) mg/dL Glucose 118 H (75-100) mg/dL Calcium 7.7 L (8.4-10.2) mg/dL Calcium panel 09/09/19 Range/Units 07:14 Calcium 7.7 L (8.4-10.2) mg/dL Pituitary panel 09/09/19 Range/Units 07:14 Sodium 137 (137-145) mmol/L Potassium 3.8 (3.6-5.0) mmol/L Chloride 101.1 (98-107) mmol/L Carbon Dioxide 26 (22-30) mmol/L BUN 11 (9-20) mg/dL Creatinine 0.7 L (0.8-1.5) mg/dL Glucose 118 H (75-100) mg/dL Calcium 7.7 L (8.4-10.2) mg/dL Adrenal panel 09/09/19 Range/Units 07:14 Sodium 137 (137-145) mmol/L Potassium 3.8 (3.6-5.0) mmol/L Chloride 101.1 (98-107) mmol/L Carbon Dioxide 26 (22-30) mmol/L BUN 11 (9-20) mg/dL Creatinine 0.7 L (0.8-1.5) mg/dL Glucose 118 H (75-100) mg/dL Calcium 7.7 L (8.4-10.2) mg/dL
[2019-09-09] MEDS: LANSOPRAZOLE 30 MG SOLUTAB FEEDTUBE SCH ×2 (09:33→22:25)
[2019-09-09] MEDS: NADOLOL 20 MG TAB PO SCH (09:33)
[2019-09-09] MEDS: FERROUS SULFATE 308 MG (62mg Elemental Iron) / 7 ML ELIXIR PO SCH (09:34)
--- NOTE | 2019-09-09 14:26 | Progress Note ---
Assessment and Plan /Leukocytosis - monitor clinically, afebrile, could be reactive - CBC in the am /Dysphagia with aspiration risk and Abnormal swallow eval; Speech Therapist recommend PEG placement Family, agreed for PEG , GI evaluated - recommend surgical placement of PEG s/p PEG on 09/08/[address] Thomas , start TF today with PEG /-Hypernatremia; resolved, Na was upto 170 Continue IV D5W, free water flushes via NG tube monitor electrolytes /-Hepatic encephalopathy-Acute on chronic Continue lactulose, patient is more alert and awake now Supportive care. Ammonia levels improved to normal range /-Complicated UTI; completed antibiotics Rocephin monitor off antibiotics /-Sepsis secondary to complicated UTI; off antibiotics /-Leukemoid reaction; resolved /-LAVONNE/ Vasomotor nephropathy/obstructive uropathy/ Resolved with placing ferguson, consulted urology for further recommendation /GI Bleed: s/p IV Octreotide/PPI IV - s/p 3 units PRBC transfusion - no EGD at this time per GI, otherwise medically stable /History of left AKA; supportive care /-History of CVA with residual weakness; Physical therapy supportive care /-Coagulopathy; secondary to cirrhosis monitor for bleeding /-Cirrhosis liver with History VARICES; No active GI bleeding closely monitor Cause likely from h/o portal vein thrombosis per GI /-DVT prophylaxis; SCDs No pharmacologic anticoagulation in view of coagulopathy /-hx of protein S deficiency with a prior portal vein thrombosis requiring extensive abdominal surgery will f/u with hematology for AC recommendation - ordered protein C and protein S --DO NOT RESUSCITATE status --Patient is critically ill with very poor prognosis Disposition ; follow TF after PEG placement , discharge to SNF when medically stable Brief History The patient is a 64 YO male from alf with history significant for DM, HTN, Cirrhosis w/ varices, CVA and CAD who was brought to [facility] ED for evaluation of AMS and abdominal distention. The patient was not able to provide any history. He was also found to have hemetemesis. His labs are significant for creat 15.2, K 7.2, HB 7.[address] abdomen showed obstructive uropathy. He was placed on ferguson catheter and called for admission. Na level trended upto 170. Hospitalist Physical General appearance: Present: no acute distress, well-nourished, other (noncommunicative) - EENT Eyes: Present: PERRL, EOM intact - Neck Neck: Present: supple, normal ROM - Respiratory Respiratory effort: normal Respiratory: bilateral: diminished, negative: rales, rhonchi, wheezing - Cardiovascular Rhythm: regular Heart Sounds: Present: S1 & S2 - Extremities Extremities: no ischemia Extremity abnormal: edema - Abdominal General gastrointestinal: soft, non-tender, non-distended, normal bowel sounds - Integumentary Integumentary: Present: clear, warm - Psychiatric Psychiatric: other (Noncommunicative) - Neurologic Neurologic: other (Noncommunicative, residual weakness) Subjective Date of service: 09/09/19 Principal diagnosis: anemia Interval history: Patient seen and examined. Medical records and medication list reviewed. No acute event overnight noted by the RN. started TF today, elevated white count, pt afebrile Objective - Constitutional Vitals: Vital Signs - 12hr 09/09/19 09/09/19 05:29 11:47 Temperature 98.5 F 98.0 F Pulse Rate 104 H 84 Respiratory 18 18 Rate Blood Pressure 108/51 117/68 O2 Sat by Pulse 97 92 Oximetry - Labs CBC & Chem 7: 09/10/19 05:00 09/10/19 05:00 Labs: Abnormal lab results 09/08/19 09/09/19 09/09/19 Range/Units 17:57 06:10 07:14 WBC 18.6 H (4.5-11.0) K/mm3 RBC 3.44 L (3.65-5.03) M/mm3 Hgb 9.3 L (11.8-15.2) gm/dl Hct 30.2 L (35.5-45.6) % MCH 27 L (28-32) pg MCHC 31 L (32-34) % RDW 22.6 H (13.2-15.2) % Lymph % (Auto) 9.7 L (13.4-35.0) % [place] % (Auto) 9.5 H (0.0-7.3) % [place] # 1.8 H (0.0-0.8) K/mm3 Baso # 0.2 H (0.0-0.1) K/mm3 Seg Neutrophils % 78.5 H (40.0-70.0) % Seg Neutrophils # 14.6 H (1.8-7.7) K/mm3 Creatinine (0.8-1.5) mg/dL Glucose (75-100) mg/dL POC Glucose 123 H 110 H (70-105) Calcium (8.4-10.2) mg/dL 09/09/19 09/09/19 Range/Units 07:14 11:18 WBC (4.5-11.0) K/mm3 RBC (3.65-5.03) M/mm3 Hgb (11.8-15.2) gm/dl Hct (35.5-45.6) % MCH (28-32) pg MCHC (32-34) % RDW (13.2-15.2) % Lymph % (Auto) (13.4-35.0) % [place] % (Auto) (0.0-7.3) % [place] # (0.0-0.8) K/mm3 Baso # (0.0-0.1) K/mm3 Seg Neutrophils % (40.0-70.0) % Seg Neutrophils # (1.8-7.7) K/mm3 Creatinine 0.7 L (0.8-1.5) mg/dL Glucose 118 H (75-100) mg/dL POC Glucose 119 H (70-105) Calcium 7.7 L (8.4-10.2) mg/dL
--- NOTE | 2019-09-09 16:34 | Operative Report ---
PREOPERATIVE DIAGNOSES: 1. Dysphagia. 2. History of stroke. POSTOPERATIVE DIAGNOSES: 1. Dysphagia. 2. History of stroke. PROCEDURE: 1. Attempted standard PEG placement. 2. Attempted diagnostic laparoscopy. 3. Open G-tube placement. ATTENDING PHYSICIAN: Anne Marie Thomas MD ANESTHESIA: General. ESTIMATED BLOOD LOSS: Minimal. FLUIDS: 500 mL. FINDINGS: 1. We were unable to get good transillumination during the standard PEG placement. 2. 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 3. Stomach was densely adhered to the anterior abdominal wall. IMPLANTS: 20-Kazakh PEG tube. DRAINS: None. COMPLICATION: None. Stable, transferred to recovery room. INDICATIONS: This is a 64-year-old male who was admitted to the hospital due to altered mental status. Due to his dysphagia, it was felt that oral intake was not safe. Therefore, request was made for feeding tube placement. General Surgery was consulted due to the patient's extensive surgical history. The patient was unable to give consent. Therefore, procedure was discussed with family. Procedure, risks, benefits were discussed. Risks included but were not limited to infection, bleeding, pain, injury to surrounding structures, possible need for further procedures in the future. Daughter understood and consented. OPERATIVE NOTE: The patient was brought to the operating room and placed on the table in supine position. After adequate general anesthesia was established, the patient was prepped and draped in usual sterile fashion. Antibiotics had been given. One SCD was in place as the left leg had been amputated in the past. All pressure points were padded. Timeout was called. Please see Dr. Wooten's note for details on her part of the procedure as she handled the endoscopy. We began with attempted to do a standard PEG placement. Dr. Wooten passed the EGD scope. However, even with the lights off in the room we were unable to transilluminate any light. Therefore, we felt that it was not safe to continue and try to place the needle as there may be bowel in between the anterior abdominal wall and the stomach. I therefore then moved to our alternative plan, which was to place a 5 mm port in the left lower quadrant away from where all the prior surgical work has been done. Please note that we were unable to obtain the old records. We were going based off what the family could recollect of what has happened in the past but that was very limited in its scope. However, it did seem as though whatever was done was primarily in the upper abdomen. I attempted an Optiview technique in the left lower quadrant. It appeared as though we had entered into the peritoneal cavity. However, when I took out the trocar and reinserted the scope it appeared as though we potentially were still in preperitoneal space. In retrospect, I think we were in the abdomen. However, it was a frozen abdomen so no insufflation could really be done and no open cavity could be visualized. As this was unsuccessful I tried an Irena technique in order to get in. We dissected down through the subcutaneous tissue with electrocautery. I opened up the fascia very carefully. I inserted a finger. It appeared as though I was able to make space inside the peritoneal cavity. I inserted the scope and we had the same visualization. Therefore, I felt that we were dealing with a frozen abdomen. I carefully looked at the surrounding area just to make sure that at any point during our attempt at placing a port that we did not injure any bowel. I saw no evidence of any GI contents. I saw no active bleeding from areas where there was bowel. It all appeared to be intact. I felt as though there were no injuries at this area. I closed the fascia with an 0 Vicryl stitch. We then turned our attention to the upper abdomen. From the CT scan, it appears as though the stomach was sitting right underneath the upper midline incision. Therefore, this area was opened and I carefully dissected through the fascia down on to the stomach. Pushing on this area we could see a direct pulsation inside the stomach from Dr. Wooten's EGD scope. It did not appear as though we had just diffuse pushing which may reflect bowel in between. We had very direct point pressure, which made me feel as though we indeed were on top of the stomach. Introducer needle was inserted. Guidewire was passed. Once Dr. Wooten attached the PEG tube I then pulled it into position. I tunneled the tubing underneath the skin to a fresh site for exit. I was concerned that if I brought it out through the old incision, which appeared to be thin and heavily scarred that it may not heal properly. Therefore, I wanted it to exit from a fresh site so that hopefully we get a good seal around the tube and minimize risk of leaking. The PEG tube was exiting the level of the fascia at 4 cm and distant to the area of the skin at 8 cm. I then made sure we had no evidence of any bleeding. I closed the fascia with interrupted 0 Prolene sutures. Deep tissue at both locations were closed with interrupted 3-0 Vicryl sutures and skin was closed with interrupted 4-0 Monocryl sutures. Skin was cleaned and dried. Mastisol and Steri-Strips were placed. We then placed the other attachments and dressings for the PEG tube. The patient tolerated the procedure well. There were no complications. All counts were correct at the end of the case. I spoke with the daughter at the end of the case. She was very appreciative. JOB# [id number] MARCELINA/FRANCOIS
[2019-09-09] MEDS: HYDROmorphone 1 MG/1 ML INJ IV PRN (18:53)
--- NOTE | 2019-09-09 19:33 | Consultation ---
History of Present Illness - Reason for Consult Consult date: 09/09/19 - History of Present Illness NEW TO OUR SERVICE Brief History The patient is a 64 YO male from [facility] with history significant for DM, HTN, Cirrhosis w/ varices, CVA and CAD who was brought to [facility] ED for evaluation of AMS and abdominal distention. The patient was not able to provide any history. He was also found to have hemetemesis. His labs are significant for creat 15.2, K 7.2, HB 7.9 and BUN 195 on admission (creatinine now 0.7 ). CT abdomen showed obstructive uropathy on admission ferguson catheter placed abd soft recent PEG (Dr. Thomas) ferguson draining naila urine Assessment and Plan Retention/BPH Leukocytosis - monitor clinically, afebrile, could be reactive - CBC in the am /Dysphagia with aspiration risk and Abnormal swallow eval; Speech Therapist recommend PEG placement Family, agreed for PEG , GI evaluated - recommend surgical placement of PEG s/p PEG on 09/08/[address] Thomas , start TF today with PEG /-Hypernatremia; resolved, Na was upto 170 Continue IV D5W, free water flushes via NG tube monitor electrolytes /-Hepatic encephalopathy-Acute on chronic Continue lactulose, patient is more alert and awake now Supportive care. Ammonia levels improved to normal range /-Complicated UTI; completed antibiotics Rocephin monitor off antibiotics /-Sepsis secondary to complicated UTI; off antibiotics /-Leukemoid reaction; resolved /-LAVONNE/ Vasomotor nephropathy/obstructive uropathy/ Resolved with placing ferguson, consulted urology for further recommendation /GI Bleed: s/p IV Octreotide/PPI IV - s/p 3 units PRBC transfusion - no EGD at this time per GI, otherwise medically stable /History of left AKA; supportive care /-History of CVA with residual weakness; Physical therapy supportive care /-Coagulopathy; secondary to cirrhosis monitor for bleeding /-Cirrhosis liver with History VARICES; No active GI bleeding closely monitor Cause likely from h/o portal vein thrombosis per GI /-hx of protein S deficiency with a prior portal vein thrombosis requiring extensive abdominal surgery will f/u with hematology for AC recommendation - ordered protein C and protein S --DO NOT RESUSCITATE status --Patient is critically ill with very poor prognosis plan is to discharge to SNF when medically stable (keep ferguson, can change q 4-6 weeks per medical status) Past History Past Medical History: diabetes, hypertension, hyperlipidemia, liver disease, stroke Past Surgical History: appendectomy, cholecystectomy, bowel surgery (intestinal gangrene; spleen), Other (left BKA; pacemaker) Social history: full code, other ([place] [facility] resident). denies: smoking, alcohol abuse, prescription drug abuse, IV drug use Medications and Allergies Allergies Allergy/AdvReac Type Severity Reaction Status Date / Time No Known Allergies Allergy Unverified 07/11/13 08:29 Home Medications Medication Instructions Recorded Confirmed Last Taken Type Apixaban [Eliquis] 5 mg PO BID 08/22/19 08/22/19 Unknown History Flomax 0.4 mg PO QHS 08/22/19 08/22/19 Unknown History Folic Acid [Folvite] 1 mg PO QDAY 08/22/19 08/22/19 Unknown History HYDROcodone/APAP 5-325 [[place] 1 each PO Q6HR PRN 08/22/19 08/22/19 Unknown History 5-325 mg TAB] Melatonin 3 mg PO QHS 08/22/19 08/22/19 Unknown History Pantoprazole [Protonix TAB] 40 mg PO QDAY 08/22/19 08/22/19 Unknown History Lactulose [Cephulac] 20 gm PO Q8HR oral.liqd 09/10/19 Unknown Rx Lispro Insulin [HumaLOG] 0 unit SUB-Q Q6HR units 09/10/19 Unknown Rx Nadolol [Corgard] 20 mg PO QDAY tablet 09/10/19 Unknown Rx Active Meds: Active Medications Lipase/Protease/Amylase (Iván Solano 10,500 Unit) 1 each FEEDTUBE PRN PRN PRN Reason: For Clogged Feeding Tube Dextrose (D50w (25gm) Syringe) 50 ml IV Q30MIN PRN PRN Reason: Hypoglycemia Ferrous Sulfate (Ferrous Sulfate) 308 mg PO QDAY KJ Last Admin: 09/09/19 09:34 Dose: 308 mg Documented by: Hydromorphone HCl (Dilaudid) 0.25 mg IV Q6H PRN PRN Reason: Pain , Severe (7-10) Last Admin: 09/09/19 18:53 Dose: 0.25 mg Documented by: Dextrose (D5w) 1,000 mls @ 75 mls/hr IV DIRECT [facility] Last Admin: 09/09/19 18:52 Dose: 75 mls/hr Documented by: Cefazolin Sodium (Ancef/Sterile Water 2 Gm/20 Ml) 2 gm in 20 mls @ 80 mls/hr IV PREOP NR Stop: 09/09/19 23:00 Insulin Human Lispro (Humalog) 0 unit SUB-Q Q6HR [facility]; Protocol Last Admin: 09/09/19 18:11 Dose: Not Given Documented by: Lactulose (Cephulac) 20 gm PO Q8HR [facility] Last Admin: 09/09/19 14:48 Dose: 20 gm Documented by: Lansoprazole (Prevacid Solutab) 30 mg FEEDTUBE BID [facility] Last Admin: 09/09/19 09:33 Dose: 30 mg Documented by: Nadolol (Corgard) 20 mg PO QDAY [facility] Last Admin: 09/09/19 09:33 Dose: 20 mg Documented by: Oxycodone/Acetaminophen (Percocet 5/325) 1 tab PO Q6H PRN PRN Reason: Pain, Moderate (4-6) Last Admin: 09/05/19 10:00 Dose: 1 tab Documented by: Simple Syrup (Simple Syrup) 15 ml FEEDTUBE PRN PRN PRN Reason: Hypoglycemia Simple Syrup (Simple Syrup) 30 ml FEEDTUBE PRN PRN PRN Reason: Hypoglycemia Sodium Bicarbonate (Sodium Bicarbonate) 325 mg FEEDTUBE PRN PRN PRN Reason: For Clogged Feeding Tube Sodium Chloride (Sodium Chloride Flush Syringe 10 Ml) 10 ml IV BID [facility] Last Admin: 09/09/19 09:35 Dose: 10 ml Documented by: Sodium Chloride (Sodium Chloride Flush Syringe 10 Ml) 10 ml IV PRN PRN PRN Reason: LINE FLUSH Last Admin: 09/08/19 00:45 Dose: 10 ml Documented by: Exam - Constitutional Vitals: Temp Pulse Resp BP Pulse Ox 98.8 F 81 18 131/72 95 09/09/19 18:22 09/09/19 18:22 09/09/19 18:22 09/09/19 18:22 09/09/19 18:22 Results - Labs CBC & Chem 7: 09/10/19 05:00 09/10/19 05:00 Labs: Abnormal lab results 09/09/19 09/09/19 09/09/19 Range/Units 06:10 07:14 07:14 WBC 18.6 H (4.5-11.0) K/mm3 RBC 3.44 L (3.65-5.03) M/mm3 Hgb 9.3 L (11.8-15.2) gm/dl Hct 30.2 L (35.5-45.6) % MCH 27 L (28-32) pg MCHC 31 L (32-34) % RDW 22.6 H (13.2-15.2) % Lymph % (Auto) 9.7 L (13.4-35.0) % [place] % (Auto) 9.5 H (0.0-7.3) % [place] # 1.8 H (0.0-0.8) K/mm3 Baso # 0.2 H (0.0-0.1) K/mm3 Seg Neutrophils % 78.5 H (40.0-70.0) % Seg Neutrophils # 14.6 H (1.8-7.7) K/mm3 Creatinine 0.7 L (0.8-1.5) mg/dL Glucose 118 H (75-100) mg/dL POC Glucose 110 H (70-105) Calcium 7.7 L (8.4-10.2) mg/dL 09/09/19 09/09/19 Range/Units 11:18 17:01 WBC (4.5-11.0) K/mm3 RBC (3.65-5.03) M/mm3 Hgb (11.8-15.2) gm/dl Hct (35.5-45.6) % MCH (28-32) pg MCHC (32-34) % RDW (13.2-15.2) % Lymph % (Auto) (13.4-35.0) % [place] % (Auto) (0.0-7.3) % [place] # (0.0-0.8) K/mm3 Baso # (0.0-0.1) K/mm3 Seg Neutrophils % (40.0-70.0) % Seg Neutrophils # (1.8-7.7) K/mm3 Creatinine (0.8-1.5) mg/dL Glucose (75-100) mg/dL POC Glucose 119 H 110 H (70-105) Calcium (8.4-10.2) mg/dL
[2019-09-10 05:44] LABS: Basophils # (Auto) 0.1 K/mm3 (0.0-0.1); Basophils % (Auto) 0.6 % (0.0-1.8); Eosinophils # (Auto) 0.4 K/mm3 (0.0-0.4); Eosinophils % (Auto) 2.4 % (0.0-4.3); Hemoglobin 9.2 gm/dl (11.8-15.2); Lymphocytes # (Auto) 1.8 K/mm3 (1.2-5.4); Lymphocytes % (Auto) 10.8 % (13.4-35.0); Mean Corpuscular HGB Conc 32 % (32-34); Mean Corpuscular Volume 87 fl (84-94); Monocytes % (Auto) 12.4 % (0.0-7.3); Platelet Count 251 K/mm3 (140-440); Red Blood Count 3.35 M/mm3 (3.65-5.03)
[2019-09-10 06:00] LABS: Red Cell Distribution Width 21.9 % (13.2-15.2)
[2019-09-10 06:14] LABS: Alanine Aminotransferase 17 units/L (7-56); Albumin 2.4 g/dL (3.9-5); BUN/Creatinine Ratio 17; Bilirubin,Direct < 0.2 mg/dL (0-0.2); Blood Urea Nitrogen 10 mg/dL (9-20); Calcium 7.9 mg/dL (8.4-10.2); Hemolysis Index 0
--- NOTE | 2019-09-10 06:36 | Hem/Onc Progress Note ---
Assessment and Plan 1. h/o Leukocytosis - 40s, likely reactive. Predominant neutrophil, anemia. MCV is normal. 2. Platelet count is normal. 3. Electrolyte abnormality. 4. History of gastrointestinal bleed. 5. Mention of hepatic encephalopathy. 6. We will observe the trend of white cell count and follow the trend of platelet count. h/o left BKA h/o CVA NGT h/o cirrhosis - CT in aug 2019 - no mention of same s iron low - oral iron trial b12 - folate normal wbc better - follow anemia - hb at one time was 6.7 - on oral iron h/o protein S def esophageal varices h/o portal vein thrombus - CT abdo - 3 phase will help d/w dr zavaleta - pt to have CT abdo - 3 phase study for status of portal vein thrombosis protein s ordered - Patient Problems (1) Leukocytosis Current Visit: No Status: Acute Qualifiers: Leukocytosis type: leukemoid reaction Qualified Code(s): D72.823 - Leukemoid reaction Subjective Date of service: 09/10/19 Principal diagnosis: anemia - h/op portal vein thrombosis Interval history: s/p peg Objective - Exam Narrative Exam: Pain - none General appearance - awake Performance status complete dependence Eyes - no icterus ENT - NGT LNs cervical not palpable Neck - no LN Respiratory Normal Breath sounds - CTA anteriorly CVS S1 S2 + Extremities no edema General GI Soft - PEG Rectal deferred male - deferred Skin warm Musculoskeletal h/o CVA - left BKA Neurologically awake - slurred speech - h/o CVA - Constitutional Vitals: Last Vital Signs Temp 98.3 F 09/10/19 04:53 Pulse 88 09/10/19 04:53 Resp 20 09/10/19 04:53 BP 114/63 09/10/19 04:53 Pulse Ox 96 09/10/19 04:53 - Labs Lab Results: Laboratory Results - last 24 hr 09/09/19 09/09/19 09/09/19 07:14 07:14 11:18 WBC 18.6 H RBC 3.44 L Hgb 9.3 L Hct 30.2 L MCV 88 MCH 27 L MCHC 31 L RDW 22.6 H Plt Count 263 Lymph % (Auto) 9.7 L [place] % (Auto) 9.5 H Eos % (Auto) 1.1 Baso % (Auto) 1.2 Lymph # 1.8 [place] # 1.8 H Eos # 0.2 Baso # 0.2 H Seg Neutrophils % 78.5 H Seg Neutrophils # 14.6 H Sodium 137 Potassium 3.8 Chloride 101.1 Carbon Dioxide 26 Anion Gap 14 BUN 11 Creatinine 0.7 L Estimated GFR > 60 BUN/Creatinine Ratio 16 Glucose 118 H POC Glucose 119 H Calcium 7.7 L Total Bilirubin Direct Bilirubin Indirect Bilirubin AST ALT Alkaline Phosphatase Total Protein Albumin Albumin/Globulin Ratio 09/09/19 09/09/19 09/10/19 17:01 23:29 05:00 WBC 16.5 H RBC 3.35 L Hgb 9.2 L Hct 29.0 L MCV 87 MCH 27 L MCHC 32 RDW 21.9 H Plt Count 251 Lymph % (Auto) 10.8 L [place] % (Auto) 12.4 H Eos % (Auto) 2.4 Baso % (Auto) 0.6 Lymph # 1.8 [place] # 2.0 H Eos # 0.4 Baso # 0.1 Seg Neutrophils % 73.8 H Seg Neutrophils # 12.2 H Sodium Potassium Chloride Carbon Dioxide Anion Gap BUN Creatinine Estimated GFR BUN/Creatinine Ratio Glucose POC Glucose 110 H 137 H Calcium Total Bilirubin Direct Bilirubin Indirect Bilirubin AST ALT Alkaline Phosphatase Total Protein Albumin Albumin/Globulin Ratio 09/10/19 09/10/19 05:00 06:12 WBC RBC Hgb Hct MCV MCH MCHC RDW Plt Count Lymph % (Auto) [place] % (Auto) Eos % (Auto) Baso % (Auto) Lymph # [place] # Eos # Baso # Seg Neutrophils % Seg Neutrophils # Sodium 136 L Potassium 3.6 Chloride 100.5 Carbon Dioxide 27 Anion Gap 12 BUN 10 Creatinine 0.6 L Estimated GFR > 60 BUN/Creatinine Ratio 17 Glucose 146 H POC Glucose 128 H Calcium 7.9 L Total Bilirubin 0.50 Direct Bilirubin < 0.2 Indirect Bilirubin 0.3 AST 26 ALT 17 Alkaline Phosphatase 229 H Total Protein 6.7 Albumin 2.4 L Albumin/Globulin Ratio 0.6 Medications & Allergies - Medications Allergies/Adverse Reactions: Allergies No Known Allergies Allergy (Unverified 07/11/13 08:29) Home Medications: Home Medications Medication Instructions Recorded Confirmed Last Taken Type Apixaban [Eliquis] 5 mg PO BID 08/22/19 08/22/19 Unknown History Ascorbic Acid [Vitamin C] 500 mg PO Q12H 08/22/19 08/22/19 Unknown History AtorvaSTATin [Lipitor] 40 mg PO QHS 08/22/19 08/22/19 Unknown History Carvedilol [Coreg] 6.25 mg PO BID 08/22/19 08/22/19 Unknown History Dicyclomine [Bentyl] 20 mg PO QID PRN 08/22/19 08/22/19 Unknown History Docusate Sodium [Colace] 100 mg PO BID 08/22/19 08/22/19 Unknown History Flomax 0.4 mg PO QHS 08/22/19 08/22/19 Unknown History Folic Acid [Folvite] 1 mg PO QDAY 08/22/19 08/22/19 Unknown History HYDROcodone/APAP 5-325 [[place] 1 each PO Q6HR PRN 08/22/19 08/22/19 Unknown History 5/325] Ibuprofen [Motrin] 600 mg PO Q8H PRN 08/22/19 08/22/19 Unknown History Lisinopril [Zestril TAB] 10 mg PO QDAY 08/22/19 08/22/19 Unknown History Loperamide [Imodium] 2 mg PO BID PRN 08/22/19 08/22/19 Unknown History Magnesium Hydroxide [Milk of 400 mg PO Q24HR PRN 08/22/19 08/22/19 Unknown History Magnesia] Melatonin 3 mg PO QHS 08/22/19 08/22/19 Unknown History Multivit with Minerals No.55 1 tab PO DAILY 08/22/19 08/22/19 Unknown History Pantoprazole [Protonix] 40 mg PO QDAY 08/22/19 08/22/19 Unknown History Sennosides/Docusate Sodium [[place]enna 1 each PO DAILY 08/22/19 08/22/19 Unknown History Plus Tablet] diphenhydrAMINE [Benadryl CAP] 25 mg PO Q6HR PRN 08/22/19 08/22/19 Unknown History Active Medications: Generic Name Dose Route Start Last Admin Trade Name Freq PRN Reason Stop Dose Admin Lipase/Protease/Amylase 1 each 08/26/19 12:00 Pancrekiara Solano 10,500 Unit FEEDTUBE PRN PRN For Clogged Feeding Tube Dextrose 50 ml 08/28/19 07:56 D50w (25gm) Syringe IV Q30MIN PRN Hypoglycemia Ferrous Sulfate 308 mg 09/02/19 10:00 09/09/19 09:34 Ferrous Sulfate PO 308 mg QDAY KJ Administration Hydromorphone HCl 0.25 mg 08/31/19 13:03 09/09/19 18:53 Dilaudid IV 0.25 mg Q6H PRN Administration Pain , Severe (7-10) Dextrose 1,000 mls @ 75 mls/hr 09/04/19 11:00 09/09/19 18:52 D5w IV 75 mls/hr DIRECT KJ Administration Insulin Human Lispro 0 unit 08/28/19 08:00 09/09/19 18:11 Humalog SUB-Q Not Given Q6HR [facility] Protocol Lactulose 20 gm 08/27/19 14:00 09/09/19 22:23 Cephulac PO 20 gm Q8HR KJ Administration Lansoprazole 30 mg 08/27/19 10:00 09/09/19 22:25 Prevacid Solutab FEEDTUBE 30 mg BID KJ Administration Nadolol 20 mg 08/27/19 11:00 09/09/19 09:33 Corgard PO 20 mg QDAY KJ Administration Oxycodone/Acetaminophen 1 tab 09/04/19 14:40 09/05/19 10:00 Percocet 5/325 PO 1 tab Q6H PRN Administration Pain, Moderate (4-6) Simple Syrup 15 ml 08/26/19 12:00 Simple Syrup FEEDTUBE PRN PRN Hypoglycemia Simple Syrup 30 ml 08/26/19 12:00 Simple Syrup FEEDTUBE PRN PRN Hypoglycemia Sodium Bicarbonate 325 mg 08/26/19 12:00 Sodium Bicarbonate FEEDTUBE PRN PRN For Clogged Feeding Tube Sodium Chloride 10 ml 08/22/19 22:00 09/09/19 22:24 Sodium Chloride Flush Syringe 10 Ml IV 10 ml BID KJ Administration Sodium Chloride 10 ml 08/22/19 21:11 09/08/19 00:45 Sodium Chloride Flush Syringe 10 Ml IV 10 ml PRN PRN Administration LINE FLUSH
[2019-09-10] MEDS: INSULIN LISPRO 100 UNIT/ML SUB-Q SCH ×4 (06:51→21:13)
[2019-09-10] MEDS: LACTULOSE 20 GM/30 ML ORAL LIQD PO SCH ×3 (06:56→22:24)
--- NOTE | 2019-09-10 08:02 | Progress Note ---
Assessment and Plan - Patient Problems (1) Dysphagia Current Visit: Yes Status: Acute Qualifiers: Dysphagia type: unspecified Qualified Code(s): R13.10 - Dysphagia, unspecified Plan to address problem: Pt stable. s/p open G-tube placement (09/08/19) - POD#2. Appears to be doing well. Abd exam is unremarkable, especially in LLQ area. Good bowel sounds. Leukocytosis appears to be reactive. Rec: 1) tube feedings to goal 2) ok to transfer today to rehab from my standpoint. f/u prn Please call with questions. Subjective Date of service: 09/10/19 Patient Reports: Positive: no new complaints, feels better, pain is less, bowel movement Objective Vital Signs - 12hr 09/09/19 09/10/19 22:42 04:53 Temperature 98.5 F 98.3 F Pulse Rate 83 88 Respiratory 18 20 Rate Blood Pressure 103/50 114/63 O2 Sat by Pulse 94 96 Oximetry - General physical appearance no distress, no pain, other (looks very comfortable. No signs of illness) - Respiratory normal expansion, normal respiratory effort - Abdomen soft, not tender, bowel sounds normal, not distended, not guarding, not rigid, surgical scars (C/d/i) - Integumentary no rash, no growths, no abnormal pigmentation - Labs 09/10/19 05:00 09/10/19 05:00 Diabetes panel 09/10/19 Range/Units 05:00 Sodium 136 L (137-145) mmol/L Potassium 3.6 (3.6-5.0) mmol/L Chloride 100.5 (98-107) mmol/L Carbon Dioxide 27 (22-30) mmol/L BUN 10 (9-20) mg/dL Creatinine 0.6 L (0.8-1.5) mg/dL Glucose 146 H (75-100) mg/dL Calcium 7.9 L (8.4-10.2) mg/dL AST 26 (5-40) units/L ALT 17 (7-56) units/L Alkaline Phosphatase 229 H (35-129) units/L Total Protein 6.7 (6.3-8.2) g/dL Albumin 2.4 L (3.9-5) g/dL Calcium panel 09/10/19 Range/Units 05:00 Calcium 7.9 L (8.4-10.2) mg/dL Albumin 2.4 L (3.9-5) g/dL Pituitary panel 09/10/19 Range/Units 05:00 Sodium 136 L (137-145) mmol/L Potassium 3.6 (3.6-5.0) mmol/L Chloride 100.5 (98-107) mmol/L Carbon Dioxide 27 (22-30) mmol/L BUN 10 (9-20) mg/dL Creatinine 0.6 L (0.8-1.5) mg/dL Glucose 146 H (75-100) mg/dL Calcium 7.9 L (8.4-10.2) mg/dL Adrenal panel 09/10/19 Range/Units 05:00 Sodium 136 L (137-145) mmol/L Potassium 3.6 (3.6-5.0) mmol/L Chloride 100.5 (98-107) mmol/L Carbon Dioxide 27 (22-30) mmol/L BUN 10 (9-20) mg/dL Creatinine 0.6 L (0.8-1.5) mg/dL Glucose 146 H (75-100) mg/dL Calcium 7.9 L (8.4-10.2) mg/dL Total Bilirubin 0.50 (0.1-1.2) mg/dL AST 26 (5-40) units/L ALT 17 (7-56) units/L Alkaline Phosphatase 229 H (35-129) units/L Total Protein 6.7 (6.3-8.2) g/dL Albumin 2.4 L (3.9-5) g/dL
[2019-09-10] MEDS: DEXTROSE 5% IN WATER 1,000 ML IV SCH (09:22)
[2019-09-10] MEDS: FERROUS SULFATE 308 MG (62mg Elemental Iron) / 7 ML ELIXIR PO SCH (09:22)
[2019-09-10] MEDS: LANSOPRAZOLE 30 MG SOLUTAB FEEDTUBE SCH ×2 (09:23→22:23)
[2019-09-10] MEDS: NADOLOL 20 MG TAB PO SCH (09:23)
[2019-09-10] MEDS ORDERED: SODIUM BICARBONATE 325 MG TAB FEEDTUBE PRN (12:41)
[2019-09-10] MEDS ORDERED: SIMPLE SYRUP 15 ML FEEDTUBE PRN ×2 (12:41)
[2019-09-10] MEDS ORDERED: LIPASE 10,500/PROTEASE 25,000/AMYLASE 43,750 (UNITS) DR CAP FEEDTUBE PRN (12:41)
--- NOTE | 2019-09-10 15:08 | Discharge Summary ---
Providers - Providers Date of Admission: 08/22/19 15:30 Date of discharge: 09/11/19 Attending physician: PATSY CORONA 08/22/19 14:35 Consult to Physician [CONS] Stat Comment: Consulting Provider: MATT RIVERA Physician Instructions: Reason For Exam: acute renal failure/hyperkalemia 08/22/19 22:10 Consult to Physician [CONS] Routine Comment: Consulting Provider: MANDEEP REDDY Physician Instructions: Reason For Exam: gi bleed 08/23/19 05:49 Consult to Wound/ET Nurse [CONS] Routine Reason For Exam: wound eval 08/24/19 02:39 Consult to PICC Line RN [CONS] Stat Reason For Exam: lack of access lines, delay medications Type Line:: PICC 08/25/19 10:29 Speech Therapy Evaluation and Treat [CONS] Routine Reason For Exam: evaluation- safe for PO intake? 08/26/19 10:15 Consult to Dietitian/Nutrition [CONS] Routine Physician Instructions: Reason For Exam: EVAL FOR POSSIBLE TPN IF FAILS SWALLOW EVAL Reason for Consult: Poor oral intake 08/29/19 07:53 Consult to Physician [CONS] Routine Comment: Consulting Provider: EN MEIER Physician Instructions: Reason For Exam: leukocytosis 08/29/19 07:55 Consult to Physician [CONS] Routine Comment: Consulting Provider: LISA CAMP Physician Instructions: Reason For Exam: leukocytosis 08/30/19 14:41 Speech Therapy Evaluation and Treat [CONS] Routine Reason For Exam: re-evaluate 08/30/19 14:43 Speech Therapy Evaluation and Treat [CONS] Urgent Reason For Exam: speech reevaluation 09/01/19 15:14 Consult to Physician [CONS] Routine Comment: Consulting Provider: SUZIE ROWELL Physician Instructions: Reason For Exam: Failed swallow/PEG placement 09/02/19 14:36 Consult to Physician [CONS] Routine Comment: Consulting Provider: BLAYNE THOMAS Physician Instructions: consult surgery Reason For Exam: PEG placement Primary care physician: [employer] Hospitalization Condition: Stable Pertinent studies: CT abdomen/pelvis head CT Hospital course: The patient is a 64 YO male from retirement with history significant for DM, HTN, Cirrhosis w/ varices, CVA and CAD who was brought to [facility] ED for evaluation of AMS and abdominal distention. The patient was not able to provide any history. He was also found to have hemetemesis. His labs are significant for creat 15.2, K 7.2, HB 7.[address] abdomen showed obstructive uropathy. He was placed on ferguson catheter and called for admission. Na level trended upto 170. Discharge diagnosis and mx: /Dysphagia with aspiration risk and Abnormal swallow eval; Speech Therapist recommend PEG placement Family, agreed for PEG , GI evaluated - recommend surgical placement of PEG s/p PEG on 09/08/[address] Thomas , started TF with PEG - tolerated well /-Hypernatremia; resolved, Na was upto 170 Continue IV D5W, free water flushes via NG tube monitor electrolytes /-Hepatic encephalopathy-Acute on chronic Continue lactulose, patient is more alert and awake now Supportive care. Ammonia levels improved to normal range /-Complicated UTI; completed antibiotics Rocephin monitor off antibiotics /-Sepsis secondary to complicated UTI; off antibiotics /-Leukemoid reaction; WBC trended down, no fever /-LAVONNE/ Vasomotor nephropathy/obstructive uropathy/ Resolved with placing ferguson, consulted urology for further recommendation - recommended to d/c with ferguson catheter - outpt urology f/u /GI Bleed due to likely vericeal bleed: s/p IV Octreotide/PPI IV - s/p 3 units PRBC transfusion - no EGD at this time per GI, otherwise medically stable /History of left AKA; supportive care /-History of CVA with residual weakness; Physical therapy supportive care /-Coagulopathy; secondary to cirrhosis monitor for bleeding /-Cirrhosis liver with History VARICES; No active GI bleeding closely monitor Cause likely from h/o portal vein thrombosis per GI /-hx of protein S deficiency with a prior portal vein thrombosis requiring extensive abdominal surgery Discussed with patient's daughter - patient on AC and recommended for AC lifelong he was cleared by GI to resume his eliquis 5 mg BID --DO NOT RESUSCITATE status /-DVT prophylaxis; SCDs resumed eliquis on discharge Disposition ; discharge to SNF Hospitalist Physical General appearance: Present: no acute distress, well-nourished, other (noncommunicative) - EENT Eyes: Present: PERRL, EOM intact - Neck Neck: Present: supple, normal ROM - Respiratory Respiratory effort: normal Respiratory: bilateral: diminished, negative: rales, rhonchi, wheezing - Cardiovascular Rhythm: regular Heart Sounds: Present: S1 & S2 - Extremities Extremities: no ischemia Extremity abnormal: edema - Abdominal General gastrointestinal: soft, non-tender, non-distended, normal bowel sounds - Integumentary Integumentary: Present: clear, warm - Psychiatric Psychiatric: other (Noncommunicative) - Neurologic Neurologic: other (Noncommunicative, residual weakness) Disposition: DC/[place]-03 SNF [facility] Time spent for discharge: 34 minutes Core Measure Documentation - Palliative Care Palliative Care/ Comfort Measures: Not Applicable - Core Measures Any of the following diagnoses?: none Exam - Constitutional Vitals: Temp Pulse Resp BP Pulse Ox 98.3 F 88 20 114/63 96 09/10/19 04:53 09/10/19 04:53 09/10/19 04:53 09/10/19 04:53 09/10/19 04:53 Plan Activity: up only with assistance Weight Bearing Status: Non-Weight Bearing Diet: other (TF) Follow up with: HERMANN WALLS MD [Staff Physician] - 7 Days LISA CAMP MD [Staff Physician] - 7 Days PRIMARY CAREMD [Primary Care Provider] - 3-5 Days
--- NOTE | 2019-09-10 15:26 | Event Note ---
Date: 09/10/19 Patient with hx of protein S deficiency with h/o CVA and portal vein thrombosis. H/H stable with no active signs of GI bleeding. Okay per GI standpoint to resume anticoagulation as recommended per hematology.
--- NOTE | 2019-09-10 21:03 | Cat Scan Report ---
CT ABDOMEN WITH AND WITHOUT CONTRAST, 09/10/2019 INDICATION: Cirrhosis. Abdominal pain. TECHNIQUE: Multiple axial CT images were acquired of the abdomen with and without intravenous contras t. Sagittal and coronal reformats were obtained. All CT performed at this facility utilize dose redu ction techniques including automated exposure control, iterative reconstruction and weight based dosi ng when appropriate to reduce patient radiation dose to as low as reasonably achievable. COMPARISON: CT of the abdomen and pelvis, 08/22/2019 FINDINGS: Limited imaging of the bilateral lung bases demonstrates no evidence of acute abnormality. Abdomen: The liver is again noted to have a cirrhotic configuration. The spleen has been removed. The re is a small amount of ascites throughout the upper abdomen, similar to the previous study. There redmond s been interval placement of a PEG tube within the distal stomach. The pancreas appears within normal limits. Bilateral adrenal glands and bilateral kidneys appear within normal limits. Evaluation of bony structures demonstrates mild to moderate degenerative changes throughout the visua lized thoracic spine IMPRESSION: 1. Cirrhotic changes of the liver with small amount of ascites throughout the upper abdomen, similar to the previous study. 2. Interval placement of PEG tube. Signer Name: Stephanie Red MD Signed: 09/10/2019 8:59 PM Workstation Name: [id number]
[2019-09-11] MEDS: INSULIN LISPRO 100 UNIT/ML SUB-Q SCH (03:04)
[2019-09-11] MEDS: DEXTROSE 5% IN WATER 1,000 ML IV SCH (03:10)
[2019-09-11] MEDS: FERROUS SULFATE 308 MG (62mg Elemental Iron) / 7 ML ELIXIR PO SCH (11:11)
[2019-09-11] MEDS: NADOLOL 20 MG TAB PO SCH (11:12)
[2019-09-11] MEDS: LANSOPRAZOLE 30 MG SOLUTAB FEEDTUBE SCH (11:12)
[2019-09-11 11:14] VITALS: BP 149/61
--- NOTE | 2019-09-11 12:01 | Progress Note ---
Assessment and Plan /Leukocytosis - monitor clinically, afebrile, could be reactive - white count trended down /Dysphagia with aspiration risk and Abnormal swallow eval; Speech Therapist recommend PEG placement Family, agreed for PEG , GI evaluated - recommend surgical placement of PEG s/p PEG on 09/08/[address] Thomas , started on TF with PEG /-Hypernatremia; resolved, Na was upto 170 Continue IV D5W, free water flushes via NG tube monitor electrolytes /-Hepatic encephalopathy-Acute on chronic Continue lactulose, patient is more alert and awake now Supportive care. Ammonia levels improved to normal range /-Complicated UTI; completed antibiotics Rocephin monitor off antibiotics /-Sepsis secondary to complicated UTI; off antibiotics /-Leukemoid reaction; resolved /-LAVONNE/ Vasomotor nephropathy/obstructive uropathy/ Resolved with placing ferguson, consulted urology for further recommendation /GI Bleed: s/p IV Octreotide/PPI IV - s/p 3 units PRBC transfusion - no EGD at this time per GI, otherwise medically stable /History of left AKA; supportive care /-History of CVA with residual weakness; Physical therapy supportive care /-Coagulopathy; secondary to cirrhosis monitor for bleeding /-Cirrhosis liver with History VARICES; No active GI bleeding closely monitor Cause likely from h/o portal vein thrombosis per GI /-DVT prophylaxis; SCDs No pharmacologic anticoagulation in view of coagulopathy /Dysphagia with aspiration risk and Abnormal swallow eval; Speech Therapist recommend PEG placement Family, agreed for PEG , GI evaluated - recommend surgical placement of PEG s/p PEG on 09/08/[address] Thomas , started TF with PEG - tolerated well /-Hypernatremia; resolved, Na was upto 170 Continue IV D5W, free water flushes via NG tube monitor electrolytes /-Hepatic encephalopathy-Acute on chronic Continue lactulose, patient is more alert and awake now Supportive care. Ammonia levels improved to normal range /-Complicated UTI; completed antibiotics Rocephin monitor off antibiotics /-Sepsis secondary to complicated UTI; off antibiotics /-Leukemoid reaction; WBC trended down, no fever /-LAVONNE/ Vasomotor nephropathy/obstructive uropathy/ Resolved with placing ferguson, consulted urology for further recommendation - recommended to d/c with ferguson catheter - outpt urology f/u /GI Bleed due to likely vericeal bleed: s/p IV Octreotide/PPI IV - s/p 3 units PRBC transfusion - no EGD at this time per GI, otherwise medically stable /History of left AKA; supportive care /-History of CVA with residual weakness; Physical therapy supportive care /-Coagulopathy; secondary to cirrhosis monitor for bleeding /-Cirrhosis liver with History VARICES; No active GI bleeding closely monitor Cause likely from h/o portal vein thrombosis per GI /-hx of protein S deficiency with a prior portal vein thrombosis requiring extensive abdominal surgery Discussed with patient's daughter - patient on AC and recommended for AC lifelong he was cleared by GI to resume his eliquis 5 mg BID --DO NOT RESUSCITATE status /-DVT prophylaxis; SCDs resumed eliquis on discharge Disposition ; discharge to SNF when bed available --DO NOT RESUSCITATE status --Patient has overall poor prognosis Disposition ; discharge to SNF when bed available Brief History The patient is a 64 YO male from [facility] with history significant for DM, HTN, Cirrhosis w/ varices, CVA and CAD who was brought to [facility] ED for evaluation of AMS and abdominal distention. The patient was not able to provide any history. He was also found to have hemetemesis. His labs are significant for creat 15.2, K 7.2, HB 7.[address] abdomen showed obstructive uropathy. He was placed on ferguson catheter and called for admission. Na level trended upto 170. Hospitalist Physical General appearance: Present: no acute distress, well-nourished, other (noncommunicative) - EENT Eyes: Present: PERRL, EOM intact - Neck Neck: Present: supple, normal ROM - Respiratory Respiratory effort: normal Respiratory: bilateral: diminished, negative: rales, rhonchi, wheezing - Cardiovascular Rhythm: regular Heart Sounds: Present: S1 & S2 - Extremities Extremities: no ischemia Extremity abnormal: edema - Abdominal General gastrointestinal: soft, non-tender, non-distended, normal bowel sounds - Integumentary Integumentary: Present: clear, warm - Psychiatric Psychiatric: other (Noncommunicative) - Neurologic Neurologic: other (Noncommunicative, residual weakness) Subjective Date of service: 09/10/19 Principal diagnosis: anemia Interval history: Patient seen and examined. Medical records and medication list reviewed. No acute event overnight noted by the RN. tolerating TF, trended white count, pt afebrile waiting on SNF placement Objective - Constitutional Vitals: Vital Signs - 12hr 09/11/19 09/11/19 05:55 11:12 Temperature 99.2 F 97.8 F Pulse Rate 88 85 Respiratory 20 19 Rate Blood Pressure 113/68 149/61 O2 Sat by Pulse 95 95 Oximetry - Labs CBC & Chem 7: 09/10/19 05:00 09/10/19 05:00 Labs: Abnormal lab results 09/10/19 09/10/19 09/11/19 Range/Units 12:35 23:48 06:06 POC Glucose 189 H 145 H 137 H (70-105)
[2019-09-11] MEDS ORDERED: APIXABAN 5 MG TAB PO SCH (13:00)
[2019-09-11 15:43] LABS: Protein S, Free 25 % normal (57-171); Protein S, Total 57 % normal (70-140)
== END 2019-09-11 11:50 | DRG 853 ==
LOC: ED 11:24 → CC1 15:30 → IMCU 08-26 12:26 → 3A 08-28 13:46
PROVIDERS: ADMIT Internal Medicine; ATTEND Internal Medicine
PROC: 30233N1 Transfusion of Nonautologous Red Blood Cells into Peripheral Vein, Percutaneous Approach (ICD-10-PCS; 2019-08-23)
PROC: 05HY33Z Insertion of Infusion Device into Upper Vein, Percutaneous Approach (ICD-10-PCS; 2019-08-24)
PROC: 5A09357 Assistance with Respiratory Ventilation, Less than 24 Consecutive Hours, Continuous Positive Airway Pressure (ICD-10-PCS; 2019-08-27)
PROC: 5A09357 Assistance with Respiratory Ventilation, Less than 24 Consecutive Hours, Continuous Positive Airway Pressure (ICD-10-PCS; 2019-08-28)
PROC: 5A09357 Assistance with Respiratory Ventilation, Less than 24 Consecutive Hours, Continuous Positive Airway Pressure (ICD-10-PCS; 2019-08-28)
PROC: 0DJ68ZZ Inspection of Stomach, Via Natural or Artificial Opening Endoscopic (ICD-10-PCS; principal; 2019-09-08)
PROC: 0DH60UZ Insertion of Feeding Device into Stomach, Open Approach (ICD-10-PCS; 2019-09-08)
PROC: 0DH63UZ Insertion of Feeding Device into Stomach, Percutaneous Approach (ICD-10-PCS; 2019-09-08)
DX: A41.9 Sepsis, unspecified organism (principal); N17.0 Acute kidney failure with tubular necrosis; K72.00 Acute and subacute hepatic failure without coma; G93.41 Metabolic encephalopathy; E87.0 Hyperosmolality and hypernatremia; N13.30 Unspecified hydronephrosis; D62 Acute posthemorrhagic anemia; E87.2 Acidosis; I85.00 Esophageal varices without bleeding; D68.9 Coagulation defect, unspecified; K92.0 Hematemesis; I69.354 Hemiplegia and hemiparesis following cerebral infarction affecting left non-dominant side; K92.2 Gastrointestinal hemorrhage, unspecified; N39.0 Urinary tract infection, site not specified; Z66 Do not resuscitate; N13.9 Obstructive and reflux uropathy, unspecified; E87.5 Hyperkalemia; K74.69 Other cirrhosis of liver; F17.200 Nicotine dependence, unspecified, uncomplicated; I25.10 Atherosclerotic heart disease of native coronary artery without angina pectoris; I10 Essential (primary) hypertension; E11.9 Type 2 diabetes mellitus without complications; E66.9 Obesity, unspecified; N40.1 Benign prostatic hyperplasia with lower urinary tract symptoms; R33.9 Retention of urine, unspecified; R13.10 Dysphagia, unspecified; D72.823 Leukemoid reaction; I25.2 Old myocardial infarction; Z95.0 Presence of cardiac pacemaker; Z89.612 Acquired absence of left leg above knee; Z68.24 Body mass index [BMI] 24.0-24.9, adult; Z90.49 Acquired absence of other specified parts of digestive tract
CPT/HCPCS: 36415; 70450; 71045; 74018; 74170; 74176; 74230; 80048; 80053; 80076; 81001; 82140; 82570; 82607; 82728; 82747; 82962; 83550; 83690; 83735; 83880; 83930; 83935; 84100; 84132; 84295; 84300; 84484; 85007; 85014; 85018; 85025; 85027; 85049; 85305; 85610; 85730; 86850; 86900; 86901; 86922; 87040; 87086; 87116; 93005; 93010; 94640; 94644; 94660; 94760; 96365; 96375; G0378; C9113; J0696; J1170; J1205; J1815; J2060; J2185; J2354; J2370; J2405; J2704; J2710; J2930; J3010; J3370; J3430; J3475; J3480; J7030; J7040; J7050; J7060; J7070; J7120; P9016; Q9967; Q9968

== ENCOUNTER 2019-10-12 14:42 | Observation (INO) | payer MEDICARE ==
--- NOTE | 2019-10-12 15:15 | Emergency Department Report ---
ED General Adult HPI - General Chief complaint: Wound/Laceration Stated complaint: WOUND LACERATION Time Seen by Provider: 10/12/19 14:56 Source: patient, EMS, RN notes reviewed, old records reviewed Mode of arrival: Stretcher Limitations: Physical Limitation, Other (the patient is a poor historian) - History of Present Illness Initial comments: This is a 64-year-old gentleman. The patient typically resides at a local prison, [place]. His past medical history includes stroke, hemiparesis, PEG tube, cirrhosis, urinary tract infection, leukemoid reaction, obstructive uropathy, indwelling De La Garza catheter, GI bleed status post secondary to variceal bleeds, left lower extremity above-knee imitation, stroke with residual deficits, coagulopathy, history of protein S deficiency with prior portal vein thrombosis requiring extensive abdominal surgery, patient currently on anticoagulation, currently on eliquis It is not known when he last took his anticoagulation. Apparently, the patient had a surgical procedure performed at another facility, for unknown reasons, possibly necrotizing infection, as per verbal report from nursing team. He is sent to the emergency room today for bleeding from his surgical site. We do not know how long the bleeding has been going on for. The patient has no complaints. He is not able to describe exacerbating or relieving factors. Primary care doctor at the prison: Dr. Rafael Pearson We contacted his prison and asked the details of the surgery, including what surgery was performed, where was performed, indication, and the surgeon of record. At the moment, prison was not able to provide this information. The aforementioned physician, Dr. Pearson was contacted by myself, and he indicates he is looking into trying to obtain this information. -: unknown Location: abdomen Quality: other Consistency: other Improves with: other Worsens with: other Associated Symptoms: other - Related Data Home Medications Medication Instructions Recorded Confirmed Last Taken Apixaban [Eliquis] 5 mg PO BID 08/22/19 08/22/19 Unknown Flomax 0.4 mg PO QHS 08/22/19 08/22/19 Unknown Folic Acid [Folvite] 1 mg PO QDAY 08/22/19 08/22/19 Unknown HYDROcodone/APAP 5-325 [[place] 1 each PO Q6HR PRN 08/22/19 08/22/19 Unknown 5-325 mg TAB] Melatonin 3 mg PO QHS 08/22/19 08/22/19 Unknown Pantoprazole [Protonix TAB] 40 mg PO QDAY 08/22/19 08/22/19 Unknown Previous Rx's Medication Instructions Recorded Last Taken Type Lactulose [Cephulac] 20 gm PO Q8HR oral.liqd 09/10/19 Unknown Rx Lispro Insulin [HumaLOG] 0 unit SUB-Q Q6HR units 09/10/19 Unknown Rx Nadolol [Corgard] 20 mg PO QDAY tablet 09/10/19 Unknown Rx Allergies Allergy/AdvReac Type Severity Reaction Status Date / Time No Known Allergies Allergy Unverified 07/11/13 08:29 ED Review of Systems ROS: Stated complaint: WOUND LACERATION Other details as noted in HPI Comment: Unobtainable due to pts medical conditions Hematological/Lymphatic: easy bleeding ED Past Medical Hx - Past Medical History Hx Hypertension: Yes Hx CVA: Yes (x2; left deficits) Hx Heart Attack/AMI: Yes (X2) Hx Congestive Heart Failure: No Hx Diabetes: No Hx Deep Vein Thrombosis: (unknown) Hx GERD: Yes Hx Liver Disease: Yes Hx Asthma: No Hx COPD: No Hx HIV: No Additional medical history: 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 - Surgical History Hx Pacemaker: Yes Hx Internal Defibrillator: No Hx Cholecystectomy: Yes Hx Appendectomy: Yes Additional Surgical History: left leg amputation, intestinal gangrene - Social History Smoking Status: Current Every Day Smoker - Medications Home Medications: Home Medications Medication Instructions Recorded Confirmed Last Taken Type Apixaban [Eliquis] 5 mg PO BID 08/22/19 08/22/19 Unknown History Flomax 0.4 mg PO QHS 08/22/19 08/22/19 Unknown History Folic Acid [Folvite] 1 mg PO QDAY 08/22/19 08/22/19 Unknown History HYDROcodone/APAP 5-325 [[place] 1 each PO Q6HR PRN 08/22/19 08/22/19 Unknown History 5-325 mg TAB] Melatonin 3 mg PO QHS 08/22/19 08/22/19 Unknown History Pantoprazole [Protonix TAB] 40 mg PO QDAY 08/22/19 08/22/19 Unknown History Lactulose [Cephulac] 20 gm PO Q8HR oral.liqd 09/10/19 Unknown Rx Lispro Insulin [HumaLOG] 0 unit SUB-Q Q6HR units 09/10/19 Unknown Rx Nadolol [Corgard] 20 mg PO QDAY tablet 09/10/19 Unknown Rx ED Physical Exam - General Limitations: Physical Limitation, Other (patient is a poor historian) General appearance: alert, in no apparent distress - Head Head exam: Present: atraumatic, normocephalic - Eye Eye exam: Present: normal appearance, EOMI - ENT ENT exam: Present: normal exam, normal orophraynx, mucous membranes moist, normal external ear exam - Neck Neck exam: Present: normal inspection, full ROM. Absent: tenderness, meningismus - Respiratory Respiratory exam: Present: normal lung sounds bilaterally. Absent: respiratory distress - Cardiovascular Cardiovascular Exam: Present: regular rate, normal rhythm, normal heart sounds. Absent: bradycardia, tachycardia, irregular rhythm, systolic murmur, diastolic murmur, rubs, gallop - GI/Abdominal GI/Abdominal exam: Present: soft, distended, other (fluid wave is noted. Feeding tube is noted. In the left lower quadrant there is a linear incision, with a pressure dressing, and there is bleeding and oozing noted from this incision. There appears to be a mild seropurulent component.). Absent: tenderness, guarding, rebound, rigid, pulsatile mass - Rectal Rectal exam: Present: deferred - Extremities Exam Extremities exam: Present: normal inspection, pedal edema, other (2+ pulses noted in the bilateral upper extremities and right lower extremity. Left lower extremity status post below-knee amputation). Absent: calf tenderness - Back Exam Back exam: Present: normal inspection. Absent: tenderness, CVA tenderness (R), CVA tenderness (L), paraspinal tenderness, vertebral tenderness - Neurological Exam Neurological exam: Present: alert, other (the patient is alert to name. The patient follows commands. There is no facial droop. There is left upper, left lower extremity weakness and clumsiness. Sensation is intact to light touch in 4 extremities.) - Psychiatric Psychiatric exam: Present: flat affect - Skin Skin exam: Present: warm, dry, intact, normal color. Absent: rash ED Course Vital Signs 10/12/19 10/12/19 10/12/19 14:49 14:55 15:00 Temperature 98 F Pulse Rate 71 76 73 Respiratory 21 25 H 27 H Rate Blood Pressure 117/67 Blood Pressure 126/69 [Right] O2 Sat by Pulse 95 96 95 Oximetry 10/12/19 10/12/19 10/12/19 15:15 15:30 15:45 Temperature Pulse Rate 74 77 75 Respiratory 28 H 30 H 30 H Rate Blood Pressure 124/69 124/69 128/72 Blood Pressure [Right] O2 Sat by Pulse 95 96 96 Oximetry 10/12/19 10/12/19 10/12/19 16:00 16:15 16:30 Temperature 98.8 F Pulse Rate 70 68 76 Respiratory 22 23 28 H Rate Blood Pressure 124/67 113/63 113/63 Blood Pressure [Right] O2 Sat by Pulse 95 95 95 Oximetry 10/12/19 10/12/19 10/12/19 16:45 17:00 18:02 Temperature Pulse Rate 72 76 Respiratory 25 H 28 H Rate Blood Pressure 121/65 124/70 124/70 Blood Pressure [Right] O2 Sat by Pulse 95 94 97 Oximetry 10/12/19 10/12/19 10/12/19 18:15 18:30 18:45 Temperature Pulse Rate 78 76 78 Respiratory 27 H 27 H 21 Rate Blood Pressure 119/65 121/68 121/64 Blood Pressure [Right] O2 Sat by Pulse 95 96 96 Oximetry 10/12/19 10/12/19 10/12/19 19:00 19:15 19:30 Temperature Pulse Rate 75 73 73 Respiratory 27 H 26 H 27 H Rate Blood Pressure 126/73 132/71 122/65 Blood Pressure [Right] O2 Sat by Pulse 92 96 96 Oximetry 10/12/19 10/12/19 10/12/19 19:45 20:00 20:15 Temperature Pulse Rate 73 78 74 Respiratory 28 H 22 30 H Rate Blood Pressure 128/69 138/79 126/68 Blood Pressure [Right] O2 Sat by Pulse 95 87 96 Oximetry 10/12/19 10/12/19 10/12/19 20:30 20:45 21:00 Temperature Pulse Rate 73 74 75 Respiratory 30 H 27 H 27 H Rate Blood Pressure 148/70 133/68 144/72 Blood Pressure [Right] O2 Sat by Pulse 94 97 96 Oximetry - Reevaluation(s) Reevaluation #1: 10/12/19 15:56 Differential diagnosis, including not limited to: Bleeding, infection, damage to adjacent structures, postoperative bleeding Assessment and plan: 64-year-old gentleman on systemic anticoagulation, with postoperative bleeding. He is afebrile with reassuring vital signs. Laboratory studies requested, CT scan with IV contrast, if renal function permits, and oral contrasted feeding tube have been requested. We are currently awaiting callback from nursing care facility to determine who performed the surgery, and further details. Reevaluation #2: 10/12/19 19:[address] Rafael Pearson, he indicates he will get back to me with further information. Patient resting comfortably, and in no acute distress. In addition, prison has not recontacted the nurse with the requested information regarding the patient's surgery and procedure. Reevaluation #3: 10/12/19 19:51 Dr. Rafael Pearson calls back. half-way was not able to provide the name, location indication for the surgery/surgeon in question. CT scan shows the following pertinent findings IMPRESSION: 1. Small intermesenteric fluid collection in the left lower quadrant adjacent to recent postoperative changes in the left anterior abdominal wall. 2. No large intraperitoneal free fluid collections. 3. Prostate enlargement. Signer Name: Dagoberto Christensen MD Signed: 10/12/2019 7:08 PM Workstation Name: [id number] Transcribed By: GA Dictated By: Dagoberto Christensen MD Electronically Authenti cated By: Dagoberto Christensen MD Signed Date/Time: 10/12/19 1908 Discussed with our general surgeon on-call, Dr. Elvis Rosas She graciously agrees to follow in consultation. We have ordered intravenous antibiotics. Hospital physicians paged to arrange admission. Reevaluation #4: 10/12/19 21:21 Case was presented to hospital medicine nurse practitioner, Rohan Zafar, the patient is accepted to the medical service. ED Medical Decision Making - Lab Data Result diagrams: 10/12/19 15:16 10/12/19 15:16 Vital Signs 10/12/19 14:55 Temperature 98 F Pulse Rate 76 Respiratory 25 H Rate Blood Pressure 126/69 [Right] O2 Sat by Pulse 96 Oximetry Lab Results 10/12/19 10/12/19 10/12/19 Range/Units 15:16 15:16 15:16 PT 13.5 (12.2-14.9) Sec. INR 1.04 (0.87-1.13) APTT 29.2 (24.2-36.6) Sec. Sodium 134 L (137-145) mmol/L Potassium 4.7 (3.6-5.0) mmol/L Chloride 97.3 L (98-107) mmol/L Carbon Dioxide 26 (22-30) mmol/L Anion Gap 15 mmol/L BUN 21 H (9-20) mg/dL Creatinine 0.5 L (0.8-1.5) mg/dL Estimated GFR > 60 ml/min BUN/Creatinine Ratio 42 % Glucose 103 H (75-100) mg/dL Calcium 8.9 (8.4-10.2) mg/dL Magnesium 2.20 (1.7-2.3) mg/dL Total Bilirubin 0.20 (0.1-1.2) mg/dL AST 50 H (5-40) units/L ALT 26 (7-56) units/L Alkaline Phosphatase 304 H (35-129) units/L Total Creatine Kinase 27 L (55-170) units/L Total Protein 8.4 H (6.3-8.2) g/dL Albumin 2.5 L (3.9-5) g/dL Albumin/Globulin Ratio 0.4 % Blood Type O POSITIVE - Radiology Data Radiology results: pending, report reviewed, image reviewed Print Report Referring Physician: WILLY DIAMOND Patient Name: ANITA GARCÍA Date of : 1955 Sex: Male Report Date: 2019-10-12 Report Status: [place] [address] Cat Scan Report Signed Patient: ANITA GARCÍA MR#: [id number] : 1955 Acct:[id number] Age/Sex: 64 / M ADM Date: 10/12/19 Loc: ED Attending Dr: Ordering Physician: WILLY DIAMOND MD Date of Service: 10/12/19 Procedure(s): CT abdomen pelvis w con Accession Number(s): [id number] cc: WILLY DIAMOND MD CT abdomen pelvis w con INDICATION / CLINICAL INFORMATION: post operative bleeding llq. TECHNIQUE: All CT scans at this location are performed using CT dose reduction for ALARA by means of automated exposure control. COMPARISON: 09/10/2019 FINDINGS: Limited lower thoracic images show no acute lung disease. ABDOMEN: A gastrostomy tube is positioned within the stomach. The gallbladder, liver and pancreas are normal. There are postoperative changes in the left upper quadrant possibly due to previous splenectomy. There is a rounded soft tissue density that could represent either a splenic nodule or small portion of this plane. No renal abnormalities. Small retroperitoneal lymph nodes are again demonstrated but none are significantly enlarged. Adrenal glands are within normal limits. No small bowel dilatation. Postsurgical changes are identified in the left anterior abdominal wall. There is a small subcutaneous fluid collection as well as a intermesenteric low-attenuation fluid collection measuring approximately 1.5 cm. Pelvis: The appendix is normal. There are no dependent fluid collection seen in the pelvis. The urinary bladder is catheterized with the inflated De La Garza balloon in intraluminal position. The prostate is enlarged. There is a moderate fecal retention in the rectosigmoid. No acute skeletal abnormality. IMPRESSION: 1. Small intermesenteric fluid collection in the left lower quadrant adjacent to recent postoperative changes in the left anterior abdominal wall. 2. No large intraperitoneal free fluid collections. 3. Prostate enlargement. Signer Name: Dagoberto Christensen MD Signed: 10/12/2019 7:08 PM Workstation Name: [id number] Transcribed By: GA Dictated By: Dagoberto Christensen MD Electronically Authenticated By: Dagoberto Christensen MD Signed Date/Time: 10/12/19 9895 Critical care attestation.: If time is entered above; I have spent that time in minutes in the direct care of this critically ill patient, excluding procedure time. ED Disposition Clinical Impression: Surgical wound present Disposition: -09 OP ADMIT IP TO THIS HOSP Is pt being admited?: Yes Condition: Fair Referrals: PRIMARY CARE, [Primary Care Provider] - 3-5 Days
[2019-10-12 15:45] LABS: Hematocrit 34.5 % (35.5-45.6); Hemoglobin 10.7 gm/dl (11.8-15.2); Mean Corpuscular HGB Conc 31 % (32-34); Mean Corpuscular Volume 83 fl (84-94); Platelet Count 679 K/mm3 (140-440); Red Blood Count 4.15 M/mm3 (3.65-5.03); Red Cell Distribution Width 17.8 % (13.2-15.2)
[2019-10-12 15:55] LABS: Alanine Aminotransferase 26 units/L (7-56); Albumin 2.5 g/dL (3.9-5); BUN/Creatinine Ratio 42; Blood Urea Nitrogen 21 mg/dL (9-20); Calcium 8.9 mg/dL (8.4-10.2); Hemolysis Index 4; INR 1.04 (0.87-1.13)
[2019-10-12 15:56] LABS: Partial Thromboplastin Time 29.2 Sec. (24.2-36.6)
[2019-10-12 16:31] LABS: Basophils % (Manual) 0 % (0.0-1.8); Total Cells Counted 100
[2019-10-12 16:32] LABS: Platelet Estimate Consistent w Auto
[2019-10-12 16:33] LABS: Anisocytosis 1+; Poikilocytosis Few; Target Cells 1+
--- NOTE | 2019-10-12 19:12 | Cat Scan Report ---
CT abdomen pelvis w con INDICATION / CLINICAL INFORMATION: post operative bleeding llq. TECHNIQUE: All CT scans at this location are performed using CT dose reduction for ALARA by means of automated e xposure control. COMPARISON: 09/10/2019 FINDINGS: Limited lower thoracic images show no acute lung disease. ABDOMEN: A gastrostomy tube is positioned within the stomach. The gallbladder, liver and pancreas are normal. There are postoperative changes in the left upper quadrant possibly due to previous splenectomy. There is a rounded soft tissue density that could represent either a splenic nodule or small portion of this plane. No renal abnormalities. Small retroperitoneal lymph nodes are again demonstrated but none are significantly enlarged. Adrenal glands are within normal limits. No small bowel dilatation. Postsurgical changes are identified in the left anterior abdominal wall. There is a small subcutaneous fluid collection as well as a intermesenteric low-attenuation fluid col lection measuring approximately 1.5 cm. Pelvis: The appendix is normal. There are no dependent fluid collection seen in the pelvis. The urinary bladder is catheterized with the inflated De La Garza balloon in intraluminal position. The prostate is enlarged. There is a moderate fecal retention in the rectosigmoid. No acute skeletal abnormality. IMPRESSION: 1. Small intermesenteric fluid collection in the left lower quadrant adjacent to recent postoperative changes in the left anterior abdominal wall. 2. No large intraperitoneal free fluid collections. 3. Prostate enlargement. Signer Name: Dagoberto Christensen MD Signed: 10/12/2019 7:08 PM Workstation Name: [id number]
[2019-10-12] MEDS ORDERED: PIPERACIL/TAZOBACTA 4.5/NS 100 4.5 GM/100 ML VIAL IV ONE (19:48)
[2019-10-12] MEDS ORDERED: metroNIDAZOLE/NS 500 MG/100 ML 500 MG/100 ML BAG IV ONE (19:48)
[2019-10-12] MEDS ORDERED: SODIUM CHLORIDE 0.9% 500 ML 500 ML IV ONE (19:50)
[2019-10-12] MEDS ORDERED: FAMOTIDINE 20 MG/2 ML INJ IV ONE (20:13)
[2019-10-12] MEDS ORDERED: ACETAMINOPHEN 325 MG TAB PO PRN (22:02)
[2019-10-12] MEDS ORDERED: ONDANSETRON 4 MG/2 ML INJ IV PRN (22:02)
--- NOTE | 2019-10-12 23:25 | History and Physical Report ---
History of Present Illness Date of examination: 10/12/19 Date of admission: 10/12/19 22:02 Chief complaint: bleeding from surgical site History of present illness: 64-year-old male who is a resident of [facility] history of diabetes, hypertension, CAD, stroke with left-sided hemiparesis, dysphagia status post PEG tube, cirrhosis, recurrent UTIs, leukemoid reaction, obstructive uropathy with indwelling De La Garza catheter, GI bleed secondary to variceal bleeds, left AKA, and protein S deficiency who presents to [facility] ED with complaints of bleeding from surgical site. Pt is a poor historian. History is provided by group home staff, and review of medical records. At this time it is not clear as to which facility or reason for abdominal surgery. Per group home staff pt had possible necrotizing infection, which required surgical intervention. ED physician reached out to Dr. Rafael Pearson (group home physician) to obtain specific details regarding pt's abdominal surgery. Dr. Pearson indicated that he is looking into and will get back to us. Pt is on Eliquis for protein S deficiency with poor portal vein thrombosis. General Surgery has been consulted. Review of medical records show pt was admitted to [facility] 08/22 for hematemesis his course was complicated by several factors including sepsis secondary to UTI. Pt had PEG tube placed on 09/08/[address] Thomas and was started on TF. He was discharged on 09/11/19 to [facility]. Past History Past Medical History: CAD, diabetes, hypertension, stroke (left sided hemiparesis), other (dysphagia status post PEG tube, cirrhosis, recurrent UTI, leukemoid reaction, obstructive neuropathic with indwelling De La Garza catheter, GI bleed secondary to variceal bleed, left AKA, protein S deficiency, poor portal vein thrombosis on Eliquis) Past Surgical History: appendectomy, cholecystectomy, Other (left AKA, PEG tube placement, left lower quadrant abdominal surgery) Social history: other (resident of [facility]) Family history: no significant family history Medications and Allergies Allergies Allergy/AdvReac Type Severity Reaction Status Date / Time No Known Allergies Allergy Unverified 07/11/13 08:29 Home Medications Medication Instructions Recorded Confirmed Last Taken Type Apixaban [Eliquis] 5 mg PO BID 08/22/19 08/22/19 Unknown History Flomax 0.4 mg PO QHS 08/22/19 08/22/19 Unknown History Folic Acid [Folvite] 1 mg PO QDAY 08/22/19 08/22/19 Unknown History HYDROcodone/APAP 5-325 [[place] 1 each PO Q6HR PRN 08/22/19 08/22/19 Unknown History 5-325 mg TAB] Melatonin 3 mg PO QHS 08/22/19 08/22/19 Unknown History Pantoprazole [Protonix TAB] 40 mg PO QDAY 08/22/19 08/22/19 Unknown History Lactulose [Cephulac] 20 gm PO Q8HR oral.liqd 09/10/19 Unknown Rx Lispro Insulin [HumaLOG] 0 unit SUB-Q Q6HR units 09/10/19 Unknown Rx Nadolol [Corgard] 20 mg PO QDAY tablet 09/10/19 Unknown Rx Active Meds: Active Medications Acetaminophen (Tylenol) 650 mg PO Q4H PRN PRN Reason: Pain MILD(1-3)/Fever >100.5/DOAN Sodium Chloride (Nacl 0.9% 1000 Ml) 1,000 mls @ 100 mls/hr IV DIRECT KJ Metronidazole (Flagyl 500 Mg/100 Ml) 500 mg in 100 mls @ 100 mls/hr IV Q8HR KJ; Protocol Levofloxacin/Dextrose (Levaquin 500mg/100ml) 500 mg in 100 mls @ 100 mls/hr IV Q24HR KJ; Protocol Morphine Sulfate (Morphine) 2 mg IV Q4H PRN PRN Reason: Pain, Moderate (4-6) Ondansetron HCl (Zofran) 4 mg IV Q8H PRN PRN Reason: Nausea And Vomiting Pantoprazole Sodium (Protonix) 40 mg IV BID KJ Sodium Chloride (Sodium Chloride Flush Syringe 10 Ml) 10 ml IV BID KJ Sodium Chloride (Sodium Chloride Flush Syringe 10 Ml) 10 ml IV PRN PRN PRN Reason: LINE FLUSH Review of Systems All systems: negative Gastrointestinal: abdominal pain Exam - Physical Exam Narrative exam: Physical exam General appearance: Present: No acute distress, alert and oriented 2, adult male - EENT Eyes: Present: PERRL, EOM intact ENT: hearing intact, missing teeth - Neck Neck: Present: supple, normal ROM - Respiratory Respiratory effort: Non-labored Respiratory: Diminished bases - Cardiovascular Heart rate: 77 (bpm) Rhythm: Sinus rhythm Heart Sounds: Present: S1 & S2. Absent: rub, click - Extremities Extremities: no ischemia, pulses intact, left AKA, left upper extremity contracture - Peripheral Assessment Peripheral Pulses: within normal limits - Abdominal General gastrointestinal: soft, left lower quadrant tenderness, left lower quadrant surgical wound with small amount of bleeding dressed with gauze and Mepilex dressing, PEG tube, normal bowel sounds - Integumentary Integumentary: Present: warm, dry - Musculoskeletal Musculoskeletal: Able to move all extremities -Neurological Neurological: CN II-XII intact - Psychiatric Psychiatric: Appropriate for situation ,cooperative - Constitutional Vitals: Temp Pulse Resp BP Pulse Ox 98.8 F 77 29 H 127/68 96 10/12/19 16:00 10/12/19 22:45 10/12/19 22:45 10/12/19 22:45 10/12/19 22:45 Results - Labs CBC & Chem 7: 10/12/19 15:16 10/12/19 15:16 Labs: Laboratory Last Values WBC 9.1 K/mm3 (4.5-11.0) 10/12/19 15:16 RBC 4.15 M/mm3 (3.65-5.03) 10/12/19 15:16 Hgb 10.7 gm/dl (11.8-15.2) L 10/12/19 15:16 Hct 34.5 % (35.5-45.6) L 10/12/19 15:16 MCV 83 fl (84-94) L 10/12/19 15:16 MCH 26 pg (28-32) L 10/12/19 15:16 MCHC 31 % (32-34) L 10/12/19 15:16 RDW 17.8 % (13.2-15.2) H 10/12/19 15:16 Plt Count 679 K/mm3 (140-440) H 10/12/19 15:16 [place] % (Auto) Spray Gun Sizer 10/12/19 15:16 Add Manual Diff Complete 10/12/19 15:16 Total Counted 100 10/12/19 15:16 Seg Neuts % (Manual) 58.0 % (40.0-70.0) 10/12/19 15:16 Band Neutrophils % 0 % 10/12/19 15:16 Lymphocytes % (Manual) 25.0 % (13.4-35.0) 10/12/19 15:16 Reactive Lymphs % (Man) 0 % 10/12/19 15:16 Monocytes % (Manual) 12.0 % (0.0-7.3) H 10/12/19 15:16 Eosinophils % (Manual) 5.0 % (0.0-4.3) H 10/12/19 15:16 Basophils % (Manual) 0 % (0.0-1.8) 10/12/19 15:16 Metamyelocytes % 0 % 10/12/19 15:16 Myelocytes % 0 % 10/12/19 15:16 Promyelocytes % 0 % 10/12/19 15:16 Blast Cells % 0 % 10/12/19 15:16 Nucleated RBC % Not Reportable 10/12/19 15:16 Seg Neutrophils # Man 5.3 K/mm3 (1.8-7.7) 10/12/19 15:16 Band Neutrophils # 0.0 K/mm3 10/12/19 15:16 Lymphocytes # (Manual) 2.3 K/mm3 (1.2-5.4) 10/12/19 15:16 Abs React Lymphs (Man) 0.0 K/mm3 10/12/19 15:16 Monocytes # (Manual) 1.1 K/mm3 (0.0-0.8) H 10/12/19 15:16 Eosinophils # (Manual) 0.5 K/mm3 (0.0-0.4) H 10/12/19 15:16 Basophils # (Manual) 0.0 K/mm3 (0.0-0.1) 10/12/19 15:16 Metamyelocytes # 0.0 K/mm3 10/12/19 15:16 Myelocytes # 0.0 K/mm3 10/12/19 15:16 Promyelocytes # 0.0 K/mm3 10/12/19 15:16 Blast Cells # 0.0 K/mm3 10/12/19 15:16 WBC Morphology Not Reportable 10/12/19 15:16 Hypersegmented Neuts Not Reportable 10/12/19 15:16 Hyposegmented Neuts Not Reportable 10/12/19 15:16 Hypogranular Neuts Not Reportable 10/12/19 15:16 Smudge Cells Not Reportable 10/12/19 15:16 Toxic Granulation Not Reportable 10/12/19 15:16 Toxic Vacuolation Not Reportable 10/12/19 15:16 Dohle Bodies Not Reportable 10/12/19 15:16 Pelger-Huet Anomaly Not Reportable 10/12/19 15:16 Ramonita Rods Not Reportable 10/12/19 15:16 Platelet Estimate Consistent w auto 10/12/19 15:16 Clumped Platelets Not Reportable 10/12/19 15:16 Plt Clumps, EDTA Not Reportable 10/12/19 15:16 Large Platelets Not Reportable 10/12/19 15:16 Giant Platelets Not Reportable 10/12/19 15:16 Platelet Satelliting Not Reportable 10/12/19 15:16 Plt Morphology Comment Not Reportable 10/12/19 15:16 RBC Morphology Not Reportable 10/12/19 15:16 Dimorphic RBCs Not Reportable 10/12/19 15:16 Polychromasia Not Reportable 10/12/19 15:16 Hypochromasia Not Reportable 10/12/19 15:16 Poikilocytosis Few 10/12/19 15:16 Anisocytosis 1+ 10/12/19 15:16 Microcytosis Not Reportable 10/12/19 15:16 Macrocytosis Not Reportable 10/12/19 15:16 Spherocytes Not Reportable 10/12/19 15:16 Pappenheimer Bodies Not Reportable 10/12/19 15:16 Sickle Cells Not Reportable 10/12/19 15:16 Target Cells 1+ 10/12/19 15:16 Tear Drop Cells Not Reportable 10/12/19 15:16 Ovalocytes Not Reportable 10/12/19 15:16 Helmet Cells Not Reportable 10/12/19 15:16 [place] Bodies Not Reportable 10/12/19 15:16 [place] Rings Not Reportable 10/12/19 15:16 Freddy Cells Not Reportable 10/12/19 15:16 Bite Cells Not Reportable 10/12/19 15:16 Crenated Cell Not Reportable 10/12/19 15:16 Elliptocytes Not Reportable 10/12/19 15:16 Acanthocytes (Spur) Not Reportable 10/12/19 15:16 Rouleaux Not Reportable 10/12/19 15:16 Hemoglobin C Crystals Not Reportable 10/12/19 15:16 Schistocytes Not Reportable 10/12/19 15:16 Malaria parasites Not Reportable 10/12/19 15:16 Noel Bodies Not Reportable 10/12/19 15:16 Hem Pathologist Commnt No 10/12/19 15:16 PT 13.5 Sec. (12.2-14.9) 10/12/19 15:16 INR 1.04 (0.87-1.13) 10/12/19 15:16 APTT 29.2 Sec. (24.2-36.6) 10/12/19 15:16 Sodium 134 mmol/L (137-145) L 10/12/19 15:16 Potassium 4.7 mmol/L (3.6-5.0) 10/12/19 15:16 Chloride 97.3 mmol/L (98-107) L 10/12/19 15:16 Carbon Dioxide 26 mmol/L (22-30) 10/12/19 15:16 Anion Gap 15 mmol/L 10/12/19 15:16 BUN 21 mg/dL (9-20) H 10/12/19 15:16 Creatinine 0.5 mg/dL (0.8-1.5) L 10/12/19 15:16 Estimated GFR > 60 ml/min 10/12/19 15:16 BUN/Creatinine Ratio 42 % 10/12/19 15:16 Glucose 103 mg/dL (75-100) H 10/12/19 15:16 Calcium 8.9 mg/dL (8.4-10.2) 10/12/19 15:16 Magnesium 2.20 mg/dL (1.7-2.3) 10/12/19 15:16 Total Bilirubin 0.20 mg/dL (0.1-1.2) 10/12/19 15:16 AST 50 units/L (5-40) H 10/12/19 15:16 ALT 26 units/L (7-56) 10/12/19 15:16 Alkaline Phosphatase 304 units/L (35-129) H 10/12/19 15:16 Ammonia 80.0 umol/L (25-60) H 10/12/19 15:16 Total Creatine Kinase 27 units/L (55-170) L 10/12/19 15:16 Total Protein 8.4 g/dL (6.3-8.2) H 10/12/19 15:16 Albumin 2.5 g/dL (3.9-5) L 10/12/19 15:16 Albumin/Globulin Ratio 0.4 % 10/12/19 15:16 Blood Type O POSITIVE 10/12/19 15:16 Antibody Screen Positive 10/12/19 15:16 Antibody Identification Anti-E Anti-K 10/12/19 15:16 Antibody Identification Anti-E Anti-K 10/12/19 15:16 - Imaging and Cardiology Imaging and Cardiology: CT Abdomen/Pelvis: FINDINGS: Limited lower thoracic images show no acute lung disease. ABDOMEN: A gastrostomy tube is positioned within the stomach. The gallbladder, liver and pancreas are normal. There are postoperative changes in the left upper quadrant possibly due to previous splenectomy. There is a rounded soft tissue density that could represent either a splenic nodule or small portion of this plane. No renal abnormalities. Small retroperitoneal lymph nodes are again demonstrated but none are significantly enlarged. Adrenal glands are within normal limits. No small bowel dilatation. Postsurgical changes are identified in the left anterior abdominal wall. There is a small subcutaneous fluid collection as well as a intermesenteric low- attenuation fluid collection measuring approximately 1.5 cm. Pelvis: The appendix is normal. There are no dependent fluid collection seen in the pelvis. The urinary bladder is catheterized with the inflated De La Garza balloon in int raluminal position. The prostate is enlarged. There is a moderate fecal retention in the rectosigmoid. No acute skeletal abnormality. IMPRESSION: 1. Small intermesenteric fluid collection in the left lower quadrant adjacent to recent postoperative changes in the left anterior abdominal wall. 2. No large intraperitoneal free fluid collections. 3. Prostate enlargement. Assessment and Plan Assessment and plan: 64-year-old male who is a resident of [facility] history of diabetes, hypertension, CAD, stroke with left-sided hemiparesis, dysphagia status post PEG tube, cirrhosis, recurrent UTIs, leukemoid reaction, obstructive uropathy with indwelling De La Garza catheter, GI bleed secondary to variceal bleeds, left AKA, and protein S deficiency who presents to [facility] ED with complaints of bleeding from surgical site. Small intermesenteric fluid collection in the left lower quadrant -Seen on today's CT Abdomen Pelvis -Pt has linear LLQ surgical site, date and facility where surgery took place in unknown at this time -On IV Flagyl and Levaquin -Dr. Rosas (General Surgery) following with plans to see pt in am DM -POC BG monitoring -SSI coverage prn Dysphagia -S/P PEG Tube placement 09/08/2019 -on Tube Feeds -Dietitian consult place for TF mgmt Hx GI -Continue protonix Hx Obstructive Uropathy -Indwelling De La Garza Catheter present on arrival -Continue Flomax Hx CVA -Left sided residual weakness -Continue supportive care Hx Protein S deficiency -Continue Eliquis Hx Cirrhosis with liver varcies -no s/s of active bleeding -Continue to monitor of s/s of bleeding DVT PPX -on SCD's -on Eliquis Advance Directives: No VTE prophylaxis?: Chemical Plan of care discussed with patient/family: Yes
[2019-10-12] MEDS ORDERED: DEXTROSE 50% IN WATER (25GM) 50 ML SYRINGE IV PRN (23:31)
[2019-10-13] MEDS: INSULIN REGULAR, HUMAN 100 UNITS/1 ML SUB-Q SCH ×3 (00:21→11:39)
[2019-10-13] MEDS: SODIUM CHLORIDE 0.9% 1000 ML 1,000 ML IV SCH ×2 (01:02→12:58)
[2019-10-13] MEDS: MORPHINE 2 MG/1 ML INJ IV PRN ×2 (02:03→12:56)
[2019-10-13 06:55] LABS: BUN/Creatinine Ratio 28; Blood Urea Nitrogen 17 mg/dL (9-20); Calcium 8.7 mg/dL (8.4-10.2); Hemolysis Index 15
[2019-10-13] MEDS: metroNIDAZOLE/NS 500 MG/100 ML 500 MG/100 ML BAG IV SCH ×3 (07:01→14:00)
[2019-10-13 09:13] LABS: Hemoglobin 11.3 gm/dl (11.8-15.2); Mean Corpuscular HGB Conc 31 % (32-34); Mean Corpuscular Volume 83 fl (84-94); Platelet Count 716 K/mm3 (140-440); Red Blood Count 4.36 M/mm3 (3.65-5.03); Red Cell Distribution Width 17.4 % (13.2-15.2)
--- NOTE | 2019-10-13 09:22 | Consultation ---
History of Present Illness Consult date: 10/13/19 Reason for consult: wound care Requesting physician: LIUDMILA TELLEZ Chief complaint: bleeding from lower abdominal wound - History of present illness History of present illness: 64-year-old male who is a resident of [facility] history of diabetes, hypertension, CAD, stroke with left-sided hemiparesis, dysphagia status post PEG tube, cirrhosis, recurrent UTIs, leukemoid reaction, obstructive uropathy with indwelling De La Garza catheter, GI bleed secondary to variceal bleeds, left AKA, and protein S deficiency who presents to [facility] ED with complaints of bleeding from surgical site. He reports that it has been going on for the past week. Prior to that there were no issues. There have been no problems with the feeding tube. 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) Family history: no significant family history Medications and Allergies Allergies Allergy/AdvReac Type Severity Reaction Status Date / Time No Known Allergies Allergy Unverified 07/11/13 08:29 Home Medications Medication Instructions Recorded Confirmed Last Taken Type Apixaban [Eliquis] 5 mg PO BID 08/22/19 08/22/19 Unknown History Flomax 0.4 mg PO QHS 08/22/19 08/22/19 Unknown History Folic Acid [Folvite] 1 mg PO QDAY 08/22/19 08/22/19 Unknown History HYDROcodone/APAP 5-325 [[place] 1 each PO Q6HR PRN 08/22/19 08/22/19 Unknown History 5-325 mg TAB] Melatonin 3 mg PO QHS 08/22/19 08/22/19 Unknown History Pantoprazole [Protonix TAB] 40 mg PO QDAY 08/22/19 08/22/19 Unknown History Lactulose [Cephulac] 20 gm PO Q8HR oral.liqd 09/10/19 Unknown Rx Lispro Insulin [HumaLOG] 0 unit SUB-Q Q6HR units 09/10/19 Unknown Rx Nadolol [Corgard] 20 mg PO QDAY tablet 09/10/19 Unknown Rx Active Meds: Active Medications Acetaminophen (Tylenol) 650 mg PO Q4H PRN PRN Reason: Pain MILD(1-3)/Fever >100.5/DOAN Apixaban (Eliquis) 5 mg PO BID KJ; Protocol Dextrose (D50w (25gm) Syringe) 0 ml IV Q30MIN PRN; Protocol PRN Reason: Hypoglycemia Folic Acid (Folvite) 1 mg PO QDAY KJ Sodium Chloride (Nacl 0.9% 1000 Ml) 1,000 mls @ 100 mls/hr IV DIRECT KJ Last Admin: 10/13/19 01:02 Dose: 100 mls/hr Documented by: Metronidazole (Flagyl 500 Mg/100 Ml) 500 mg in 100 mls @ 100 mls/hr IV Q8HR KJ; Protocol Last Admin: 10/13/19 07:01 Dose: 100 mls/hr Documented by: Levofloxacin/Dextrose (Levaquin 500mg/100ml) 500 mg in 100 mls @ 100 mls/hr IV Q24HR KJ; Protocol Insulin Human Regular (Humulin R) 0 units SUB-Q Q6HR KJ; Protocol Last Admin: 10/13/19 00:21 Dose: Not Given Documented by: Morphine Sulfate (Morphine) 2 mg IV Q4H PRN PRN Reason: Pain, Moderate (4-6) Last Admin: 10/13/19 02:03 Dose: 2 mg Documented by: Ondansetron HCl (Zofran) 4 mg IV Q8H PRN PRN Reason: Nausea And Vomiting Pantoprazole Sodium (Protonix) 40 mg IV BID [facility] Sodium Chloride (Sodium Chloride Flush Syringe 10 Ml) 10 ml IV BID [facility] Sodium Chloride (Sodium Chloride Flush Syringe 10 Ml) 10 ml IV PRN PRN PRN Reason: LINE FLUSH Tamsulosin HCl (Flomax) 0.4 mg PO QHS [facility] Review of Systems - Constitutional chronic pain, no fever, no chills - Cardiovascular no chest pain, no shortness of breath - Respiratory no cough - Gastrointestinal abdominal pain (only at wound site), no nausea, no vomiting, no dyspepsia/bloating - Integumentary wounds Exam Vital Signs Pulse Resp Pulse Ox 71 21 95 10/12/19 14:49 10/12/19 14:49 10/12/19 14:49 - General physical appearance Positive: no distress, no pain, other (pleasant. appropriate interaction) - Respiratory Positive: normal expansion, normal respiratory effort - Abdomen Abdomen: Present: soft, tender (only with probing in the wound. rest of abdomen benign. ), surgical scars (Feeding tube site - C/D/I. ), other (open wound with old blood in LLQ. No erythema. No odor. ). Absent: distended - Psychiatric Psychiatric: appropriate mood/affect, cooperative Results - Labs 10/13/19 08:50 10/13/19 05:34 Abnormal lab results 10/12/19 10/12/19 10/12/19 Range/Units 15:16 15:16 15:16 Hgb 10.7 L (11.8-15.2) gm/dl Hct 34.5 L (35.5-45.6) % MCV 83 L (84-94) fl MCH 26 L (28-32) pg MCHC 31 L (32-34) % RDW 17.8 H (13.2-15.2) % Plt Count 679 H (140-440) K/mm3 Monocytes % (Manual) 12.0 H (0.0-7.3) % Eosinophils % (Manual) 5.0 H (0.0-4.3) % Monocytes # (Manual) 1.1 H (0.0-0.8) K/mm3 Eosinophils # (Manual) 0.5 H (0.0-0.4) K/mm3 Sodium 134 L (137-145) mmol/L Potassium (3.6-5.0) mmol/L Chloride 97.3 L (98-107) mmol/L BUN 21 H (9-20) mg/dL Creatinine 0.5 L (0.8-1.5) mg/dL Glucose 103 H (75-100) mg/dL AST 50 H (5-40) units/L Alkaline Phosphatase 304 H (35-129) units/L Ammonia 80.0 H (25-60) umol/L Total Creatine Kinase 27 L (55-170) units/L Total Protein 8.4 H (6.3-8.2) g/dL Albumin 2.5 L (3.9-5) g/dL 10/13/19 10/13/19 Range/Units 05:34 08:50 Hgb 11.3 L (11.8-15.2) gm/dl Hct (35.5-45.6) % MCV 83 L (84-94) fl MCH 26 L (28-32) pg MCHC 31 L (32-34) % RDW 17.4 H (13.2-15.2) % Plt Count 716 H (140-440) K/mm3 Monocytes % (Manual) (0.0-7.3) % Eosinophils % (Manual) (0.0-4.3) % Monocytes # (Manual) (0.0-0.8) K/mm3 Eosinophils # (Manual) (0.0-0.4) K/mm3 Sodium (137-145) mmol/L Potassium 5.1 H (3.6-5.0) mmol/L Chloride (98-107) mmol/L BUN (9-20) mg/dL Creatinine 0.6 L (0.8-1.5) mg/dL Glucose (75-100) mg/dL AST (5-40) units/L Alkaline Phosphatase (35-129) units/L Ammonia (25-60) umol/L Total Creatine Kinase (55-170) units/L Total Protein (6.3-8.2) g/dL Albumin (3.9-5) g/dL Diabetes panel 10/12/19 10/13/19 Range/Units 15:16 05:34 Sodium 134 L 139 (137-145) mmol/L Potassium 4.7 5.1 H (3.6-5.0) mmol/L Chloride 97.3 L 100.9 (98-107) mmol/L Carbon Dioxide 26 24 (22-30) mmol/L BUN 21 H 17 (9-20) mg/dL Creatinine 0.5 L 0.6 L (0.8-1.5) mg/dL Glucose 103 H 87 (75-100) mg/dL Calcium 8.9 8.7 (8.4-10.2) mg/dL AST 50 H (5-40) units/L ALT 26 (7-56) units/L Alkaline Phosphatase 304 H (35-129) units/L Total Protein 8.4 H (6.3-8.2) g/dL Albumin 2.5 L (3.9-5) g/dL Calcium panel 10/12/19 10/13/19 Range/Units 15:16 05:34 Calcium 8.9 8.7 (8.4-10.2) mg/dL Albumin 2.5 L (3.9-5) g/dL Pituitary panel 10/12/19 10/13/19 Range/Units 15:16 05:34 Sodium 134 L 139 (137-145) mmol/L Potassium 4.7 5.1 H (3.6-5.0) mmol/L Chloride 97.3 L 100.9 (98-107) mmol/L Carbon Dioxide 26 24 (22-30) mmol/L BUN 21 H 17 (9-20) mg/dL Creatinine 0.5 L 0.6 L (0.8-1.5) mg/dL Glucose 103 H 87 (75-100) mg/dL Calcium 8.9 8.7 (8.4-10.2) mg/dL Adrenal panel 10/12/19 10/13/19 Range/Units 15:16 05:34 Sodium 134 L 139 (137-145) mmol/L Potassium 4.7 5.1 H (3.6-5.0) mmol/L Chloride 97.3 L 100.9 (98-107) mmol/L Carbon Dioxide 26 24 (22-30) mmol/L BUN 21 H 17 (9-20) mg/dL Creatinine 0.5 L 0.6 L (0.8-1.5) mg/dL Glucose 103 H 87 (75-100) mg/dL Calcium 8.9 8.7 (8.4-10.2) mg/dL Total Bilirubin 0.20 (0.1-1.2) mg/dL AST 50 H (5-40) units/L ALT 26 (7-56) units/L Alkaline Phosphatase 304 H (35-129) units/L Total Protein 8.4 H (6.3-8.2) g/dL Albumin 2.5 L (3.9-5) g/dL - Imaging CT scan - abdomen: report reviewed, image reviewed CT scan - pelvis: report reviewed, image reviewed Assessment and Plan - Patient Problems (1) Postoperative wound hematoma Current Visit: Yes Status: Acute Plan to address problem: Pt stable. It appears as though his left lower quadrant incision developed a small hematoma and subsequently opened up. No obvious signs of infection. Cultures were taken as a precaution. No obvious indication for Abx. This wound was created during surgery for his feeding tube placement. We used this location to try to enter the abdomen. Wound has been cleaned and packed. CT scan was reviewed. The small fluid collection adjacent to the bowel is most likely another small hematoma. Rec: 1) Change dressing every other day. Clean with wound cleanser and then pack with Mesalt. Cover with dry dressing. 2) If this is the only issue, may discharge back to long term 3) f/u in office in 2 weeks Please call with questions. Discussed with Dr. Tellez. Time=30min
[2019-10-13] MEDS ORDERED: FOLIC ACID 1 MG TAB PO SCH (10:00)
[2019-10-13] MEDS ORDERED: APIXABAN 5 MG TAB PO SCH (10:00)
[2019-10-13] MEDS ORDERED: PANTOPRAZOLE 40 MG INJ IV SCH (10:00)
[2019-10-13] MEDS ORDERED: SIMPLE SYRUP 15 ML FEEDTUBE PRN ×2 (10:44)
[2019-10-13] MEDS ORDERED: SODIUM BICARBONATE 325 MG TAB FEEDTUBE PRN (10:44)
[2019-10-13] MEDS ORDERED: LIPASE 10,500/PROTEASE 25,000/AMYLASE 43,750 (UNITS) DR CAP FEEDTUBE PRN (10:44)
[2019-10-13 10:47] LABS: Basophils % (Manual) 0 % (0.0-1.8); Total Cells Counted 100
[2019-10-13 10:48] LABS: Anisocytosis 1+; Hypochromasia 1+; Platelet Estimate Consistent w Auto; Poikilocytosis Few; Target Cells Few
--- NOTE | 2019-10-13 13:51 | Discharge Summary ---
Providers - Providers Date of Admission: 10/12/19 22:02 Date of discharge: 10/13/19 Attending physician: LIUDMILA LARSEN 10/12/19 19:49 Consult to Physician [CONS] Urgent Comment: Dr. Gomes spoke with Dr. Alonzo @ 1950 Consulting Provider: JOSIAH ALONZO Physician Instructions: Reason For Exam: post surgical wound 10/12/19 23:20 Consult to Dietitian/Nutrition [CONS] Routine Physician Instructions: pt takes jevity 1.5 @ 80ml/hr at long-term Reason For Exam: Reason for Consult: Write/Manage Tube Feeding 10/13/19 10:44 Consult to Dietitian/Nutrition [CONS] Routine Physician Instructions: Assess nutrtn needs, initiate, modify, manage TF Reason For Exam: Reason for Consult: Write/Manage Tube Feeding Reason for Consult: Write/Manage Tube Feeding Primary care physician: [employer] Hospitalization Condition: Stable Hospital course: Patient is a 64-year-old man from [facility] with a histo ry of type 2 DM, hypertension, CAD, stroke with left-sided hemiparesis, dysphagia status post PEG tube, cirrhosis, recurrent UTIs, leukemoid reaction, obstructive uropathy with chronic indwelling De La Garza catheter, GI bleed secondary to variceal bleeds, left AKA, and protein S deficiency who presented to [facility] ED with complaints of bleeding from surgical site of the PEG. He was admitted thinking the abnormal CT maybe abscess/infection related but General Surgeon, Dr. Thomas elevated and determined this was a Postoperative wound hematoma with old blood from procedure, ok to continue Eliquis per Dr. Thomas * CT Abdomen/Pelvis IMPRESSION: 1. Small intermesenteric fluid collection in the left lower quadrant adjacent to recent, postoperative changes in the left anterior abdominal wall. 2. No large intraperitoneal free fluid collections. 3. Prostate enlargement. Discharge Diagnoses: Postoperative wound hematoma DM -POC BG monitoring -SSI coverage prn Dysphagia -S/P PEG Tube placement 09/08/2019 -on Tube Feeds -Dietitian consult place for TF mgmt Hx GI -Continue protonix Hx Obstructive Uropathy -Indwelling De La Garza Catheter present on arrival -Continue Flomax Hx CVA -Left sided residual weakness -Continue supportive care Hx Protein S deficiency -Continue Eliquis Hx Cirrhosis with liver varcies -no s/s of active bleeding -Continue to monitor of s/s of bleeding Disposition: DC/[facility] Time spent for discharge: 36 minutes Core Measure Documentation - Palliative Care Palliative Care/ Comfort Measures: Not Applicable - Core Measures Any of the following diagnoses?: none - VTE Discharge Requirements Deep Vein Thrombosis/Pulmonary Embolism Present on Admission: No Has pt received <5 days of overlap therapy or INR<2.0: No Anticoagulant overlap therapy prescribed at discharge: No Contraindication No Overlap Therapy order at DC: Not Indicated Exam - Constitutional Vitals: Temp Pulse Resp BP Pulse Ox 98.3 F 78 18 108/60 95 10/13/19 11:45 10/13/19 11:45 10/13/19 11:45 10/13/19 11:45 10/13/19 11:45 General appearance: Present: no acute distress - EENT Eyes: Present: PERRL - Neck Neck: Present: supple - Respiratory Respiratory effort: normal Respiratory: bilateral: CTA - Cardiovascular Rhythm: regular Heart Sounds: Present: S1 & S2 - Extremities Extremities: pulses intact - Abdominal General gastrointestinal: Present: soft, non-tender, normal bowel sounds, other (PEG tube intact, below it is a small draining hematoma) - Neurologic Neurologic: CNII-XII intact, no focal deficits Plan Activity: fall precautions, other (no strenous activities) Diet: per dietitian instruction (PEG tube feedings) Wound: per your surgeon's advice Additional Instructions: per Dr. Thomas. 1) Change dressing every other day. Clean with wound cleanser and then pack with Mesalt. Cover with dry dressing. 2) If this is the only issue, may discharge back to long-term. 3) f/u in office in 2 weeks Follow up with: JOHN PAUL NIXON MD [Primary Care Provider] - 3-5 Days BLAYNE THOMAS MD [Staff Physician] - 14 Days
[2019-10-13] MEDS ORDERED: SODIUM POLYSTYRENE 15 GM/60 ML ORAL LIQD PO SCH (14:00)
[2019-10-13 18:20] VITALS: BP 124/67
[2019-10-13] MEDS ORDERED: TAMSULOSIN 0.4 MG CAP PO SCH (22:00)
== END 2019-10-13 18:30 ==
LOC: ED 14:42 → 3B-SURG 22:02 → INTOOBSV 22:02
PROVIDERS: ADMIT Internal Medicine; ATTEND Internal Medicine
DX: T81.49XA Infection following a procedure, other surgical site, initial encounter (principal); K91.840 Postprocedural hemorrhage of a digestive system organ or structure following a digestive system procedure; K91.870 Postprocedural hematoma of a digestive system organ or structure following a digestive system procedure; E11.9 Type 2 diabetes mellitus without complications; R13.10 Dysphagia, unspecified; N13.9 Obstructive and reflux uropathy, unspecified; D68.59 Other primary thrombophilia; K74.60 Unspecified cirrhosis of liver; K21.9 Gastro-esophageal reflux disease without esophagitis; K76.9 Liver disease, unspecified; N40.0 Benign prostatic hyperplasia without lower urinary tract symptoms; I25.10 Atherosclerotic heart disease of native coronary artery without angina pectoris; F17.200 Nicotine dependence, unspecified, uncomplicated; I10 Essential (primary) hypertension; Z90.49 Acquired absence of other specified parts of digestive tract; Z86.73 Personal history of transient ischemic attack (TIA), and cerebral infarction without residual deficits
CPT/HCPCS: 36415; 74177; 80048; 80053; 82140; 82550; 82962; 83735; 85007; 85025; 85610; 85730; 86850; 86870; 86900; 86901; 87075; 87116; 96365; 96366; 96367; 96375; 96376; 99284; C9113; G0378; J1956; J2270; J2543; J7030; J7040; Q9967

== ENCOUNTER 2019-12-29 18:01 | Emergency (ER) | payer MEDICARE ==
[2019-12-29 19:28] LABS: Bilirubin,Urine NEG (Negative); Blood,Urine LG (Negative); Color,Urine Yellow (Yellow); Mucus,Urine 2+ /HPF; RBC,Urine > 182.0 /HPF (0.0-6.0); Urobilinogen,Urine < 2.0 mg/dL (<2.0); WBC,Urine > 182.0 /HPF (0.0-6.0)
[2019-12-29] MEDS ORDERED: HYDROcodone/ACETAMINOPHEN 5-325 MG TAB PO ONE (20:25)
[2019-12-29 20:29] LABS: Basophils # (Auto) 0.1 K/mm3 (0.0-0.1); Basophils % (Auto) 0.7 % (0.0-1.8); Eosinophils # (Auto) 0.1 K/mm3 (0.0-0.4); Eosinophils % (Auto) 0.5 % (0.0-4.3); Hemoglobin 14.7 gm/dl (11.8-15.2); Lymphocytes # (Auto) 3.4 K/mm3 (1.2-5.4); Lymphocytes % (Auto) 18.7 % (13.4-35.0); Mean Corpuscular HGB Conc 32 % (32-34); Mean Corpuscular Volume 86 fl (84-94); Monocytes # (Auto) 2.2 K/mm3 (0.0-0.8); Monocytes % (Auto) 11.8 % (0.0-7.3); Platelet Count 304 K/mm3 (140-440); Red Blood Count 5.34 M/mm3 (3.65-5.03)
[2019-12-29 20:33] LABS: Red Cell Distribution Width 23.5 % (13.2-15.2)
[2019-12-29 20:57] LABS: Alanine Aminotransferase 27 units/L (7-56); Albumin 3.3 g/dL (3.9-5); BUN/Creatinine Ratio 35; Blood Urea Nitrogen 21 mg/dL (9-20); Calcium 9.7 mg/dL (8.4-10.2); Hemolysis Index 38
[2019-12-29] MEDS ORDERED: cefTRIAXone/NS 1 GM/50 ML 1 GM/50 ML BAG IV ONE (22:35)
[2019-12-29] MEDS ORDERED: SODIUM POLYSTYRENE 15 GM/60 ML ORAL LIQD PO ONE (22:39)
--- NOTE | 2019-12-29 22:40 | Emergency Department Report ---
HPI - General Chief Complaint: Abdominal Pain Time Seen by Provider: 12/29/19 19:28 - HPI HPI: 64-year-old male presents to the emergency department via EMS from his [facility] home with the complaint of a 2-day history of lower abdominal pain and concern for an infection in the bladder or around the De La Garza catheter. The De La Garza catheter was allegedly placed here about 3 months ago and the longterm facility has noticed some discharge from around the catheter. His urine also has appeared very dark with concern for some blood in it. He has a past medical history of CVA with left-sided deficits, diabetes, GERD, coronary artery disease, hypertension, cirrhosis. ED Past Medical Hx - Past Medical History Previous Medical History?: Yes Hx Hypertension: Yes Hx CVA: Yes (x2; left deficits) Hx Heart Attack/AMI: Yes (x2) Hx Congestive Heart Failure: No Hx Diabetes: Yes Hx Deep Vein Thrombosis: (unknown) Hx Pulmonary Embolism: No Hx GERD: Yes Hx Liver Disease: Yes Hx Renal Disease: No Hx Sickle Cell Disease: No Hx Arthritis: No Hx Seizures: No Hx Kidney Stones: No Hx Asthma: No Hx COPD: No Hx Tuberculosis: No Hx Dementia: No Hx HIV: No Additional medical history: 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 - Surgical History Hx Coronary Stent: No Hx Open Heart Surgery: No Hx Pacemaker: Yes Hx Internal Defibrillator: No Hx Cholecystectomy: Yes Hx Appendectomy: Yes Hx Breast Surgery: No Additional Surgical History: left leg amputation, intestinal gangrene,g-tube - Social History Smoking Status: Unknown if ever smoked - Medications Home Medications: Home Medications Medication Instructions Recorded Confirmed Last Taken Type Apixaban [Eliquis] 5 mg PO BID 08/22/19 08/22/19 Unknown History Flomax 0.4 mg PO QHS 08/22/19 08/22/19 Unknown History Folic Acid [Folvite] 1 mg PO QDAY 08/22/19 08/22/19 Unknown History HYDROcodone/APAP 5-325 [[place] 1 each PO Q6HR PRN 08/22/19 08/22/19 Unknown History 5-325 mg TAB] Melatonin 3 mg PO QHS 08/22/19 08/22/19 Unknown History Pantoprazole [Protonix TAB] 40 mg PO QDAY 08/22/19 08/22/19 Unknown History Lactulose [Cephulac] 20 gm PO Q8HR oral.liqd 09/10/19 Unknown Rx Lispro Insulin [HumaLOG] 0 unit SUB-Q Q6HR units 09/10/19 Unknown Rx nadoloL [Corgard] 20 mg PO QDAY tablet 09/10/19 Unknown Rx Ciprofloxacin HCl [Ciprofloxacin 500 mg PO Q12HR #14 tab 12/29/19 Unknown Rx TAB] ED Review of Systems ROS: Stated complaint: ABDOMINAL PAIN Other details as noted in HPI Comment: All other systems reviewed and negative Constitutional: denies: chills, fever Respiratory: denies: cough, shortness of breath Cardiovascular: denies: chest pain, palpitations Gastrointestinal: abdominal pain. denies: vomiting Genitourinary: hematuria, discharge Musculoskeletal: denies: back pain, arthralgia Neurological: denies: headache Physical Exam - Physical Exam Vital Signs: Vital Signs 12/29/19 12/29/19 12/29/19 19:09 19:25 20:37 Temperature 98.2 F 98.3 F Pulse Rate 81 78 Respiratory 16 18 18 Rate Blood Pressure 141/90 123/75 [Right] O2 Sat by Pulse 95 96 Oximetry Physical Exam: GENERAL: Patient is awake and does not appear in any acute distress. HENT: Normocephalic. Atraumatic. Patient has moist mucous membranes. EYES: Extraocular motions are intact. NECK: Supple. Trachea is midline. CHEST/LUNGS: Clear to auscultation. There is no respiratory distress noted. HEART/CARDIOVASCULAR: Regular. There is no tachycardia. There is no murmur. ABDOMEN: Abdomen is soft. There is some lower abdominal tenderness to palpation. A feeding tube is in the left middle to lower abdomen. Patient has normal bowel sounds. SKIN: Skin is warm and dry. NEURO: The patient is awake, alert, and oriented. The patient is cooperative. MUSCULOSKELETAL: There is no tenderness or deformity. There is no evidence of acute injury. : De La Garza catheter in place with some whitish-yellow discharge seen around the De La Garza catheter and the urethra. ED Course Vital Signs 12/29/19 12/29/19 12/29/19 19:09 19:25 20:37 Temperature 98.2 F 98.3 F Pulse Rate 81 78 Respiratory 16 18 18 Rate Blood Pressure 141/90 123/75 [Right] O2 Sat by Pulse 95 96 Oximetry ED Medical Decision Making - Lab Data Result diagrams: 12/29/19 19:46 12/29/19 19:46 - Radiology Data Radiology results: report reviewed CT abdomen pelvis w con INDICATION: Abdominal pain. TECHNIQUE: All CT scans at this location are performed using the following dose modulation technique: Automated exposure control. Helical slices were obtained through the abdomen and pelvis. 100 cc of Omnipaque 300 is administered. COMPARISON: CT scans dated 10/12/2019 and 09/10/2019 FINDINGS: Abdomen: There is linear scar or atelectasis in the left base. There is elevation of the left hemidiaphragm. Postoperative changes are noted in the left upper quadrant characteristic of prior splenectomy. There is excess 3 splenule in the left upper quadrant which is unchanged from prior imaging. The liver grossly unremarkable. No acute abnormality is seen in the liver, pancreas, adrenal glands or kidneys. There is a PEG tube in the stomach There are multiple small vessels noted throughout the mesentery these likely represent collateral vessels throughout the mesentery. There is a surgical clip on the IVC which likely accounts for collateral vessels. In addition there are small lymph nodes in the mesentery which are somewhat increased in number but are not pathologically enlarged. There is nonspecific. There is no bowel obstruction or free air. There are no abnormal fluid collections. Pelvis: There is a large amount of stool noted in the distal sigmoid colon and rectum. Urinary bladder is collapsed around a De La Garza catheter. There is no adenopathy. The prostate gland is enlarged. On review of bone windows, no acute osseous abnormalities are seen IMPRESSION: 1. No acute abnormality is seen in the abdomen or pelvis. Previously noted small interloop fluid collection at the operative site in the left lower quadrant has resolved in the interval. There is no obstruction or free air. There are no abnormal fluid collections. - Medical Decision Making This patient presents to the emergency department with the complaint of some lower abdominal pain as well as some discharge seen around the De La Garza catheter that has been in place for the past few months. On examination he does have some mild abdominal tenderness to palpation but the abdomen is soft and nondistended. There is some discharge seen around the De La Garza catheter. The De La Garza catheter was removed and replaced with a new De La Garza catheter. The urine was sent and shows a urinary tract infection and microscopic hematuria. The patient was given a dose of IV antibiotics here. Labs show a leukocytosis of 18,000 without any significant left shift. The metabolic panel is normal including normal renal function. Patient will have a CT scan of the abdomen and pelvis with IV contrast done but it has not yet been performed. The case will be signed out to my colleague, Dr Pak, to follow the CT scan results and assist with disposition. If negative for any acute process, the patient has been written for some antibiotics and given a referral for Urology. - Differential Diagnosis UTI, pyelonephritis, soft tissue abscess Critical Care Time: No Critical care attestation.: If time is entered above; I have spent that time in minutes in the direct care of this critically ill patient, excluding procedure time. ED Disposition Clinical Impression: Hyperkalemia Abdominal pain Qualifiers: Abdominal location: lower abdomen, unspecified Qualified Code(s): R10.30 - L ower abdominal pain, unspecified UTI (urinary tract infection) Qualifiers: Urinary tract infection type: acute cystitis Hematuria presence: with hematuria Qualified Code(s): N30.01 - Acute cystitis with hematuria Hematuria Qualifiers: Hematuria type: unspecified type Qualified Code(s): R31.9 - Hematuria, unspecified Disposition: - TO HOME OR SELFCARE Is pt being admited?: No Condition: Stable Instructions: Urinary Tract Infection in Men (ED), De La Garza Catheter Placement and Care (ED), Acute Hematuria (ED), Abdominal Pain (ED) Additional Instructions: Please follow-up with your primary care physician in the next few days. I have given you a referral for a local urologist, Dr. Elizabeth, to follow-up regarding your urinary tract infection and the blood found in the urine, as well as fo llow-up regarding your De La Garza catheter placement and care. Please return to the emergency department immediately with any worsening of your symptoms or any acute distress. Take the antibiotics as prescribed. Prescriptions: Ciprofloxacin HCl [Ciprofloxacin TAB] 500 mg PO Q12HR #14 tab Referrals: JOHN PAUL NIXON MD [Primary Care Provider] - 2-3 Days HERMANN ELIZABETH MD [Staff Physician] - 2-3 Days
--- NOTE | 2019-12-30 00:57 | Cat Scan Report ---
CT abdomen pelvis w con INDICATION: Abdominal pain. TECHNIQUE: All CT scans at this location are performed using the following dose modulation technique: Automated exposure control. Helical slices were obtained through the abdomen and pelvis. 100 cc of Omnipaque 30 0 is administered. COMPARISON: CT scans dated 10/12/2019 and 09/10/2019 FINDINGS: Abdomen: There is linear scar or atelectasis in the left base. There is elevation of the left hemidia phragm. Postoperative changes are noted in the left upper quadrant characteristic of prior splenectom y. There is excess 3 splenule in the left upper quadrant which is unchanged from prior imaging. The l iver grossly unremarkable. No acute abnormality is seen in the liver, pancreas, adrenal glands or kid neys. There is a PEG tube in the stomach There are multiple small vessels noted throughout the mesentery these likely represent collateral ves sels throughout the mesentery. There is a surgical clip on the IVC which likely accounts for collater al vessels. In addition there are small lymph nodes in the mesentery which are somewhat increased in number but are not pathologically enlarged. There is nonspecific. There is no bowel obstruction or fr ee air. There are no abnormal fluid collections. Pelvis: There is a large amount of stool noted in the distal sigmoid colon and rectum. Urinary bladde r is collapsed around a De La Garza catheter. There is no adenopathy. The prostate gland is enlarged. On review of bone windows, no acute osseous abnormalities are seen IMPRESSION: 1. No acute abnormality is seen in the abdomen or pelvis. Previously noted small interloop fluid william ection at the operative site in the left lower quadrant has resolved in the interval. There is no obs truction or free air. There are no abnormal fluid collections. Signer Name: Buck Elias MD Signed: 12/30/2019 12:52 AM Workstation Name: [id number]
[2019-12-30 03:02] VITALS: BP 131/75
== END 2019-12-30 03:00 | disposition home or self-care (01) ==
LOC: ED 18:01
DX: T83.038A Leakage of other urinary catheter, initial encounter (principal); N39.0 Urinary tract infection, site not specified; E87.5 Hyperkalemia; I10 Essential (primary) hypertension; I25.2 Old myocardial infarction; E11.9 Type 2 diabetes mellitus without complications; K21.9 Gastro-esophageal reflux disease without esophagitis; Z90.49 Acquired absence of other specified parts of digestive tract; Z95.818 Presence of other cardiac implants and grafts; Z98.890 Other specified postprocedural states; Z79.899 Other long term (current) drug therapy; X58.XXXA Exposure to other specified factors, initial encounter
CPT/HCPCS: 36415; 51702; 74177; 80053; 81001; 85025; 96365; 99284; J0696; Q9967

== ENCOUNTER 2020-10-11 22:07 | Inpatient (IN) | payer MEDICARE ==
[2020-10-11] MEDS ORDERED: SODIUM CHLORIDE 0.9% 1000 ML 1,000 ML IV ONE ×3 (22:13→22:15)
[2020-10-11] MEDS ORDERED: AZITHROMYCIN 500 MG in SODIUM CHLORIDE 0.9% 250ML 250 ML IV ONE (22:15)
[2020-10-11] MEDS ORDERED: cefTRIAXone/NS 2 GM/100 ML 2 GM/100 ML BAG IV ONE (22:15)
--- NOTE | 2020-10-11 22:16 | Emergency Department Report ---
ED General Adult HPI - General Chief complaint: Abdominal Pain Stated complaint: DIFFICULTY IN BREATHING PUI?: Yes Time Seen by Provider: 10/11/20 22:07 Source: EMS Mode of arrival: Stretcher Limitations: Altered Mental Status, Physical Limitation - History of Present Illness Initial comments: Patient is a 65-year-old male who presents with EMS for difficulty breathing, hypoxia, Covid positive and left upper quadrant abdominal pain. The onset of the symptoms is unknown. Report received from EMS. EMS states the patient was hypoxic at 82% and was placed on a nonrebreather and is currently 93% on nonrebreather. Patient is altered at this time. -: Sudden - Related Data Home Medications Medication Instructions Recorded Confirmed Last Taken Flomax 0.4 mg PO QHS 08/22/19 08/22/19 Unknown Folic Acid [Folvite] 1 mg PO QDAY 08/22/19 08/22/19 Unknown Melatonin 3 mg PO QHS 08/22/19 08/22/19 Unknown Pantoprazole [Protonix TAB] 40 mg PO QDAY 08/22/19 08/22/19 Unknown Previous Rx's Medication Instructions Recorded Last Taken Type Lispro Insulin [HumaLOG] 0 unit SUB-Q Q6HR units 09/10/19 Unknown Rx nadoloL [Corgard] 20 mg PO QDAY tablet 09/10/19 Unknown Rx Apixaban [Eliquis] 2.5 mg PO BID tablet 09/09/20 Unknown Rx amLODIPine 10 mg PO QDAY tablet 09/09/20 Unknown Rx hydrALAZINE [Apresoline TAB] 100 mg PO TID tab 09/09/20 Unknown Rx metroNIDAZOLE [Flagyl TAB] 500 mg PO Q8HR #14 tablet 09/09/20 Unknown Rx Allergies Allergy/AdvReac Type Severity Reaction Status Date / Time No Known Allergies Allergy Verified 12/29/19 19:25 ED Review of Systems ROS: Stated complaint: DIFFICULTY IN BREATHING Other details as noted in HPI Comment: Unobtainable due to pts medical conditions ED Past Medical Hx - Past Medical History Previous Medical History?: Yes Hx Hypertension: Yes Hx CVA: Yes (x2; left deficits) Hx Heart Attack/AMI: Yes (x2) Hx Congestive Heart Failure: No Hx Diabetes: Yes Hx Deep Vein Thrombosis: (unknown) Hx Pulmonary Embolism: No Hx GERD: Yes Hx Liver Disease: Yes Hx Renal Disease: No Hx Sickle Cell Disease: No Hx Arthritis: No Hx Seizures: No Hx Kidney Stones: No Hx Asthma: No Hx COPD: No Hx Tuberculosis: No Hx Dementia: No Hx HIV: No Additional medical history: 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 - Surgical History Past Surgical History?: Yes Hx Coronary Stent: No Hx Open Heart Surgery: No Hx Pacemaker: Yes Hx Internal Defibrillator: No Hx Cholecystectomy: Yes Hx Appendectomy: Yes Hx Breast Surgery: No Additional Surgical History: left leg amputation, intestinal gangrene,g-tube - Family History Family history: no significant - Social History Smoking Status: Former Smoker Substance Use Type: None - Medications Home Medications: Home Medications Medication Instructions Recorded Confirmed Last Taken Type Flomax 0.4 mg PO QHS 08/22/19 08/22/19 Unknown History Folic Acid [Folvite] 1 mg PO QDAY 08/22/19 08/22/19 Unknown History Melatonin 3 mg PO QHS 08/22/19 08/22/19 Unknown History Pantoprazole [Protonix TAB] 40 mg PO QDAY 08/22/19 08/22/19 Unknown History Lispro Insulin [HumaLOG] 0 unit SUB-Q Q6HR units 09/10/19 Unknown Rx nadoloL [Corgard] 20 mg PO QDAY tablet 09/10/19 Unknown Rx Apixaban [Eliquis] 2.5 mg PO BID tablet 09/09/20 Unknown Rx amLODIPine 10 mg PO QDAY tablet 09/09/20 Unknown Rx hydrALAZINE [Apresoline TAB] 100 mg PO TID tab 09/09/20 Unknown Rx metroNIDAZOLE [Flagyl TAB] 500 mg PO Q8HR #14 tablet 09/09/20 Unknown Rx ED Physical Exam - General Limitations: Altered Mental Status General appearance: alert, in distress - Head Head exam: Present: atraumatic, normocephalic - Eye Eye exam: Present: normal appearance - ENT ENT exam: Present: mucous membranes moist - Neck Neck exam: Present: normal inspection - Respiratory Respiratory exam: Present: respiratory distress, decreased breath sounds - Cardiovascular Cardiovascular Exam: Present: regular rate, normal rhythm. Absent: systolic murmur, diastolic murmur, rubs, gallop - GI/Abdominal GI/Abdominal exam: Present: soft, tenderness (Left upper quadrant), normal bowel sounds - Rectal Rectal exam: Present: deferred - Extremities Exam Extremities exam: Present: normal inspection - Back Exam Back exam: Present: normal inspection - Neurological Exam Neurological exam: Present: alert, oriented X3 - Psychiatric Psychiatric exam: Present: normal affect, normal mood - Skin Skin exam: Present: warm, dry, intact, normal color. Absent: rash ED Course Vital Signs 10/11/20 10/11/20 10/11/20 22:10 22:16 22:30 Temperature 97.4 F L Pulse Rate 74 72 Respiratory 29 H 24 Rate Blood Pressure 92/55 Blood Pressure 92/55 [Left] O2 Sat by Pulse 94 95 97 Oximetry 10/11/20 10/11/20 10/11/20 22:36 22:45 23:00 Temperature Pulse Rate 70 79 72 Respiratory 26 H 28 H 20 Rate Blood Pressure 89/56 97/58 97/58 Blood Pressure [Left] O2 Sat by Pulse 99 89 88 Oximetry 10/11/20 10/11/20 10/11/20 23:15 23:30 23:45 Temperature Pulse Rate 72 66 72 Respiratory 25 H 25 H 26 H Rate Blood Pressure 94/56 94/56 98/58 Blood Pressure [Left] O2 Sat by Pulse 88 88 76 L Oximetry 10/12/20 10/12/20 10/12/20 00:00 00:15 00:30 Temperature Pulse Rate 72 73 81 Respiratory 29 H 31 H 13 Rate Blood Pressure 98/58 92/45 110/54 Blood Pressure [Left] O2 Sat by Pulse 80 L 76 L 97 Oximetry 10/12/20 10/12/20 10/12/20 00:44 00:45 01:00 Temperature Pulse Rate 68 70 66 Respiratory 20 20 Rate Blood Pressure 114/56 114/56 114/59 Blood Pressure [Left] O2 Sat by Pulse 98 96 96 Oximetry 10/12/20 10/12/20 10/12/20 01:15 01:30 01:45 Temperature Pulse Rate 65 64 66 Respiratory 20 21 20 Rate Blood Pressure 97/53 99/52 96/55 Blood Pressure [Left] O2 Sat by Pulse 96 94 88 Oximetry 10/12/20 10/12/20 10/12/20 02:00 02:15 03:13 Temperature Pulse Rate 63 Respiratory 20 Rate Blood Pressure 92/51 84/49 88/51 Blood Pressure [Left] O2 Sat by Pulse 91 95 98 Oximetry 10/12/20 10/12/20 10/12/20 03:15 03:30 03:45 Temperature Pulse Rate 70 65 60 Respiratory 19 20 20 Rate Blood Pressure 92/47 95/57 97/56 Blood Pressure [Left] O2 Sat by Pulse 99 97 97 Oximetry 10/12/20 10/12/20 04:00 04:15 Temperature Pulse Rate 60 60 Respiratory 20 20 Rate Blood Pressure 98/51 101/55 Blood Pressure [Left] O2 Sat by Pulse 95 93 Oximetry - Reevaluation(s) Reevaluation #1: Initial evaluation done. Patient is currently connected to our cafeteria monitor. Patient will be placed on BiPAP. A sepsis protocol was initiated. 10/11/20 22:16 Reevaluation #2: Nurse unable to obtain IV. A left brachial vein IV placed with ultrasound. See procedure note. 10/11/20 23:01 Reevaluation #3: Patient's blood pressure did not improve with fluids and patient was started on Levophed. 10/11/20 23:50 Reevaluation #4: Patient's oxygen saturation not improving on BiPAP and 100% FiO2. Patient will be intubated. See procedure note. 10/12/20 00:01 Patient's blood pressure continues to be low. Patient was placed on a second pressor. 10/12/20 01:06 Patient blood pressure improved but has dropped again. Patient was placed on a third pressor. 10/12/20 03:27 Reevaluation #5: Patient's blood pressure is better. Patient had a right IJ central line placed. 10/12/20 04:27 - Consultations Consultation #1: Hospitalist consulted for admission. Hospitalist to admit patient. 10/12/20 02:08 Consultation #2: Infectious disease consult placed 10/12/20 02:08 Consultation #3: I discussed the case with general surgery, Dr. Rucker. Dr. Rucker states he will see the patient in the morning. 10/12/20 05:17 - Central Line Placement Right IJ Consent Obtained: emergent situation Time Out Performed: Yes Patient Placed on Monitor/Pulse Ox: Yes Prep: mask, gown, gloves Central Line Prep: Chlorhexidine scrub, sterile drapes applied Local Anesthesia Used: Lidocaine 1% Amount of Anesthesia Used (mls): 5 Ultrasound Used for Placement: Yes Central Line Lumen Inserted: triple Bloods Obtained for Lab: Yes Central Line Position: good blood return, all ports aspirated, flus, sutured in place with 2-0 Dressing Applied: Tegaderm Post Procedure X-Ray: tip of catheter in good p Patient Tolerated Procedure: well, no complications Complications: none Additional Comments: Patient had a right IJ placed without difficulty. No complications noted. Seldinger technique used. Chest x-ray done which shows good placement of the line and no pneumothorax. - EJ/Peripheral Line Arm L Time Out Performed: Yes Indications: nurses unable to establis Skin Cleansed in Sterile Fashion: Yes Size: 18 Dressing Placed: Tegaderm, tape Patient Tolerated Procedure: well, no complications Additional Comments: Site was cleaned and draped in a sterile fashion. A left brachial vein line placed with ultrasound guidance. IV was secured. IV noted to have good blood return and flushed easily. - Intubation Time Out Performed: Yes Sedative: Etomidate Paralytic: Rocuronium Laryngoscope: fiberoptic video scope Size: 4 Assist Device Used: fiberoptic device ET Tube Size: 7.5 Tube Secured Depth (cm): 22 Tube Secured Location: teeth Tube Placement Confirmation: visualized tube passing t, equal breath sounds bilat, no breath sounds over epi, confirmation by capnometr Patient Tolerated Procedure: well, no complications Intubation Complications: none ED Medical Decision Making - Lab Data Result diagrams: 10/12/20 00:55 10/12/20 00:55 - EKG Data -: EKG Interpreted by [facility] EKG shows normal: sinus rhythm, axis, intervals, QRS complexes, ST-T waves Rate: normal - Radiology Data Radiology results: report reviewed, image reviewed CHEST 1 VIEW INDICATION: essence. Patient has Covid positive and presents from correction with shortness of breath COMPARISON: 09/09/2020 FINDINGS: SUPPORT DEVICES: Stable satisfactory device positioning. HEART: Poorly visualized given left lung findings. LUNGS/PLEURA: Complete opacification of the left hemithorax with mild central interstitial prominence on the right but no consolidation or effusion. ADDITIONAL FINDINGS: None. IMPRESSION: 1. Pulmonary findings as above. Given the short time interval, primary differential considerations include a large pleural effusion, mucous plug, and extensive consolidation. CHEST - 1 VIEW INDICATION: ETT placement COMPARISON: Yesterday FINDINGS: SUPPORT DEVICES: New endotracheal tube with tip near the level the clavicles in satisfactory position. HEART: Stable cardiomediastinal silhouette. LUNGS/PLEURA: Persistent complete opacification of the left hemithorax. ADDITIONAL FINDINGS: None. IMPRESSION: New ET tube in satisfactory position. Otherwise unchanged exam. CT head without contrast HISTORY: Altered Mental Status, Covid-19 Positive, Pt is on a vent.. TECHNIQUE: Axial imaging performed from the skull apex through the skull base without the use of contrast. All CT scans at this location are performed using CT dose reduction for ALARA by means of automated exposure control. COMPARISON: CT head from 08/28/2019 FINDINGS: Parenchyma: No acute intracranial hemorrhage or parenchymal abnormality. Large right MCA distribution infarct again noted as well as the right occipital infarct. Ventricles: There is mild diffuse brain atrophy with commensurate ventricular enlargement which is likely age appropriate. Soft tissues: Soft tissues including the orbits appear normal. Bones: No acute osseous abnormality. Sinuses: Sinuses and mastoid air cells are clear. IMPRESSION: No acute abnormality. Chronic-appearing changes. CTA chest with contrast CT abdomen and pelvis with contrast INDICATION : P.E. PROTOCOL!!! Shortness of breath, Hypoxia, Covid-19 Positive. Acute generalized abdominal pain TECHNIQUE: Axial imaging performed through the chest, with contrast bolus timing set to maximize opacification of the pulmonary arteries. 3-plane MIP reformatted images were obtained. Axial imaging also performed through the abdomen and pelvis with contrast. All CT scans at this location are performed using CT dose reduction for ALARA by means of automated exposure control. 100 mL of intravenous contrast administered. COMPARISON: CT abdomen/pelvis from 09/05/2020 FINDINGS: CTA CHEST: Bolus: Contrast bolus timing is adequate. PTE: No filling defect is present to suggest PTE. Mediastinum: Heart and great vessels appear normal. No pathologic mediastinal adenopathy. Lungs: There are patchy groundglass opacities in the lungs with dense consolidation of the left lung base consistent with pneumonia. There is some atelectasis and intermixed pneumonia also in the right lung base but less significant than seen on the left. Bones: Degenerative changes in the spine with nothing acute. CT ABDOMEN/PELVIS: There is extensive inflammatory change and circumferential wall thickening involving the stomach, duodenal C-loop, proximal small bowel, and the entire colon. No bowel obstruction or obvious perforation the spleen is surgically absent. Postoperative changes seen along the left lobe of the liver. A gastric tube is in place which appears to be just within the distal gastric body. Liver demonstrates surface nodularity as may be seen with cirrhotic co nfiguration. There is new moderate volume ascites and diffuse mesenteric edema. No focal liver lesion identified. Gallbladder and pancreas are unremarkable. There is bilateral adrenal nodularity/t hickening, simple renal cysts, nonobstructive nephrolithiasis in the right kidney. There is a rim-enhancing cystic structure in the left retroperitoneum which has grown in size since the previous exam and measures approximately 7.2 cm in maximal dimension on image #62 of series #2, previously 5 cm in a similar plane on image 35 of series 2 by my measurements. This could be a collection or a neoplastic process. Prostate is grossly enlarged and indents the bladder base. A De La Garza catheter is in place. A surgical device is again seen along the distal IVC below the level of the renal veins. IMPRESSION: 1. Negative for PTE. Findings consistent with history of Covid in the lungs with superimposed left greater than right basilar pneumonia. 2. Severely abnormal appearance of the entire bowel with extensive inflammatory change or wall thickening as well as diffuse mesenteric edema and moderate volume ascites which is new since the previous exam. I discussed these findings with Dr. Ly at 2:46 AM central standard time and he informs me the patient is septic and hypotensive. The bowel findings are likely in keeping with a shock bowel-type phenomenon. 3. Additional incidental findings as above. - Medical Decision Making Patient is a 65-year-old male who presents emergency room from a local correction with shortness of breath, fever and abdominal pain. Patient also was diagnosed with Covid 3 days ago. Patient found to be hypoxic and hypotensive. Patient had a sepsis work-up and a sepsis protocol initiated immediately upon arrival. Patient was given antibiotics and fluids early and his ER stay. Patient required ultrasound-guided peripheral IV placement. Patient had a chest x-ray which showed pneumonia. Patient also had worsening hypoxia and patient was eventually intubated. Patient intubated with RSI. See procedure note. Patient became hypotensive prior to intubation and required a pressor. Patient required 2 more pressors while in the ER. Patient then had a central line placed in the left IJ. Due to the altered mental status, the patient had a head CT. Head CT was negative for acute findings. Patient also had a CTA of the chest and a CT of the abdomen. CT of the chest showed no PE and extensive pneumonia. CT of the abdomen showed extensive inflammation of the bowels consistent with shock bowel. General surgery consulted. Infectious disease consulted. Patient admitted into the ICU and to the hospitalist service. - Differential Diagnosis AMS, Covid, pneumonia, sepsis, septic shock, hypoxia, respiratory failure Critical Care Time: Yes Critical care time in (mins) excluding proc time.: 80 Critical care attestation.: If time is entered above; I have spent that time in minutes in the direct care of this critically ill patient, excluding procedure time. Critical Care Time: 80 minutes ED Disposition Clinical Impression: Hypoxia, SOB (shortness of breath), COVID-19, Shock bowel, Elevated d-dimer Sepsis Qualifiers: Sepsis type: sepsis due to unspecified organism Sepsis acute organ dysfunction status: with acute organ dysfunction Severe sepsis acute organ dysfunction type: acute respiratory failure Acute respiratory failure type: with hypoxia Severe sepsis shock status: with septic shock Qualified Code(s): A41.9 - Sepsis, unspecified organism; R65.21 - Severe sepsis with septic shock; J96.01 - Acute respiratory failure with hypoxia Respiratory failure Qualifiers: Chronicity: acute Respiratory failure complication: hypoxia Qualified Code(s): J96.01 - Acute respiratory failure with hypoxia Hypotension Qualifiers: Hypotension type: unspecified hypotension type Qualified Code(s): I95.9 - Hypotension, unspecified Altered mental state Qualifiers: Altered mental status type: unspecified Qualified Code(s): R41.82 - Altered mental status, unspecified Abdominal pain Qualifiers: Abdominal location: left upper quadrant Qualified Code(s): R10.12 - Left upper quadrant pain Disposition: DC-09 OP ADMIT IP TO THIS HOSP Is pt being admited?: Yes Does the pt Need Aspirin: No Condition: Critical Time of Disposition: 02:08
--- NOTE | 2020-10-11 22:42 | XRay Report ---
CHEST 1 VIEW INDICATION: essence. Patient has Covid positive and presents from correction with shortness of breath COMPARISON: 09/09/2020 FINDINGS: SUPPORT DEVICES: Stable satisfactory device positioning. HEART: Poorly visualized given left lung findings. LUNGS/PLEURA: Complete opacification of the left hemithorax with mild central interstitial prominence on the right but no consolidation or effusion. ADDITIONAL FINDINGS: None. IMPRESSION: 1. Pulmonary findings as above. Given the short time interval, primary differential considerations in clude a large pleural effusion, mucous plug, and extensive consolidation. Signer Name: Shade Lloyd MD Signed: 10/11/2020 10:37 PM Workstation Name: [id number]
[2020-10-11] MEDS ORDERED: ROCURONIUM 50 MG/5 ML INJ IV ONE (23:53)
[2020-10-11] MEDS ORDERED: ETOMIDATE 20 MG/10 ML INJ IV ONE (23:53)
[2020-10-12] MEDS ORDERED: NORepinephrine/NS 4 MG-250 ML 4 MG/250 ML BAG IV ONE ×3 (00:07→06:50)
[2020-10-12] MEDS ORDERED: ETOMIDATE 20 MG/10 ML INJ IV ONE (00:20)
[2020-10-12] MEDS ORDERED: ROCURONIUM 50 MG/5 ML INJ IV ONE (00:20)
[2020-10-12] MEDS ORDERED: fentaNYL DRIP Premix 2,000 MCG/100 ML BAG IV ONE ×3 (00:26→10:21)
[2020-10-12] MEDS ORDERED: MINERAL OIL/PETROLATUM, WHITE OPHTH OINT 3.5 GM OU PRN (00:31)
[2020-10-12] MEDS ORDERED: LIP THERAPY VASELINE TP PRN (00:31)
[2020-10-12] MEDS ORDERED: fentaNYL 100 MCG/2 ML INJ IV PRN (00:31)
[2020-10-12] MEDS: fentaNYL DRIP Premix 2,000 MCG/100 ML BAG IV SCH ×2 (00:47→06:41)
[2020-10-12] MEDS: NORepinephrine/NS 4 MG-250 ML 4 MG/250 ML BAG IV SCH ×4 (00:48→06:54)
--- NOTE | 2020-10-12 00:51 | XRay Report ---
CHEST - 1 VIEW INDICATION: ETT placement COMPARISON: Yesterday FINDINGS: SUPPORT DEVICES: New endotracheal tube with tip near the level the clavicles in satisfactory positio n. HEART: Stable cardiomediastinal silhouette. LUNGS/PLEURA: Persistent complete opacification of the left hemithorax. ADDITIONAL FINDINGS: None. IMPRESSION: New ET tube in satisfactory position. Otherwise unchanged exam. Signer Name: Shade Lloyd MD Signed: 10/12/2020 12:46 AM Workstation Name: [id number]
[2020-10-12 01:23] LABS: Hematocrit 37.7 % (35.5-45.6); Hemoglobin 11.8 gm/dl (11.8-15.2); Mean Corpuscular HGB Conc 31 % (32-34); Mean Corpuscular Volume 94 fl (84-94); Platelet Count 415 K/mm3 (140-440); Red Blood Count 4.02 M/mm3 (3.65-5.03)
[2020-10-12] MEDS ORDERED: EPINEPHrine 1 MG/1 ML 8 MG in SODIUM CHLORIDE 0.9% 250ML 242 ML IV ONE (01:36)
[2020-10-12 01:38] LABS: Alanine Aminotransferase 15 units/L (7-56); Albumin 2.3 g/dL (3.9-5); BUN/Creatinine Ratio 56; Blood Urea Nitrogen 45 mg/dL (9-20); Hemolysis Index 144
[2020-10-12] MEDS ORDERED: DOPamine/D5W 800 MG/250 ML 800 MG/250 ML BAG IV ONE (03:26)
[2020-10-12] MEDS ORDERED: ACETAMINOPHEN 325 MG TAB PO PRN (03:28)
--- NOTE | 2020-10-12 03:36 | Cat Scan Report ---
CT head without contrast HISTORY: Altered Mental Status, Covid-19 Positive, Pt is on a vent.. TECHNIQUE: Axial imaging performed from the skull apex through the skull base without the use of con trast. All CT scans at this location are performed using CT dose reduction for ALARA by means of aut omated exposure control. COMPARISON: CT head from 08/28/2019 FINDINGS: Parenchyma: No acute intracranial hemorrhage or parenchymal abnormality. Large right MCA distributio n infarct again noted as well as the right occipital infarct. Ventricles: There is mild diffuse brain atrophy with commensurate ventricular enlargement which is l ikely age appropriate. Soft tissues: Soft tissues including the orbits appear normal. Bones: No acute osseous abnormality. Sinuses: Sinuses and mastoid air cells are clear. IMPRESSION: No acute abnormality. Chronic-appearing changes. Signer Name: Shade Lloyd MD Signed: 10/12/2020 3:31 AM Workstation Name: [id number]
[2020-10-12] MEDS ORDERED: DEXTROSE 50% IN WATER (25GM) 50 ML SYRINGE IV PRN (03:39)
[2020-10-12 03:41] LABS: C-Reactive Protein 4.2 mg/dL (0.00-1.30)
[2020-10-12] MEDS ORDERED: SODIUM CHLORIDE 0.9% 1000 ML 1,000 ML IV SCH (03:45)
--- NOTE | 2020-10-12 03:53 | Cat Scan Report ---
CTA chest with contrast CT abdomen and pelvis with contrast INDICATION : P.E. PROTOCOL!!! Shortness of breath, Hypoxia, Covid-19 Positive. Acute generalized ab dominal pain TECHNIQUE: Axial imaging performed through the chest, with contrast bolus timing set to maximize opa cification of the pulmonary arteries. 3-plane MIP reformatted images were obtained. Axial imaging als o performed through the abdomen and pelvis with contrast. All CT scans at this location are performed using CT dose reduction for ALARA by means of automated exposure control. 100 mL of intravenous contrast administered. COMPARISON: CT abdomen/pelvis from 09/05/2020 FINDINGS: CTA CHEST: Bolus: Contrast bolus timing is adequate. PTE: No filling defect is present to suggest PTE. Mediastinum: Heart and great vessels appear normal. No pathologic mediastinal adenopathy. Lungs: There are patchy groundglass opacities in the lungs with dense consolidation of the left lung base consistent with pneumonia. There is some atelectasis and intermixed pneumonia also in the right lung base but less significant than seen on the left. Bones: Degenerative changes in the spine with nothing acute. CT ABDOMEN/PELVIS: There is extensive inflammatory change and circumferential wall thickening involving the stomach, duo denal C-loop, proximal small bowel, and the entire colon. No bowel obstruction or obvious perforation the spleen is surgically absent. Postoperative changes seen along the left lobe of the liver. A lanette diomedes tube is in place which appears to be just within the distal gastric body. Liver demonstrates surface nodularity as may be seen with cirrhotic configuration. There is new moder ate volume ascites and diffuse mesenteric edema. No focal liver lesion identified. Gallbladder and pa ncreas are unremarkable. There is bilateral adrenal nodularity/thickening, simple renal cysts, nonobs tructive nephrolithiasis in the right kidney. There is a rim-enhancing cystic structure in the left retroperitoneum which has grown in size since t he previous exam and measures approximately 7.2 cm in maximal dimension on image #62 of series #2, pr eviously 5 cm in a similar plane on image 35 of series 2 by my measurements. This could be a collecti on or a neoplastic process. Prostate is grossly enlarged and indents the bladder base. A De La Garza catheter is in place. A surgical d evice is again seen along the distal IVC below the level of the renal veins. IMPRESSION: 1. Negative for PTE. Findings consistent with history of Covid in the lungs with superimposed left g reater than right basilar pneumonia. 2. Severely abnormal appearance of the entire bowel with extensive inflammatory change or wall thicke светлана as well as diffuse mesenteric edema and moderate volume ascites which is new since the previous exam. I discussed these findings with Dr. Ly at 2:46 AM central standard time and he informs me the patient is septic and hypotensive. The bowel findings are likely in keeping with a shock bowel-t ype phenomenon. 3. Additional incidental findings as above. Signer Name: Shade Lloyd MD Signed: 10/12/2020 3:48 AM Workstation Name: [id number]
[2020-10-12] MEDS ORDERED: VANCOMYCIN PHARMACY TO DOSE IV SCH (04:00)
[2020-10-12] MEDS ORDERED: DOPamine/D5W 800 MG/250 ML 800 MG/250 ML BAG IV SCH (04:00)
[2020-10-12 04:06] LABS: ABG Base Excess 0.5 mmol/L (-2.0-3.0); ABG HCO3 27.6 mmol/L (20.0-26.0); ABG Methemoglobin 0.7 % (0.0-1.5); ABG Oxygen Saturation 80.1 % (95.0-99.0); ABG PCO2 56.4 mm Hg; ABG PH 7.309 pH Units (7.350-7.450); ABG PO2 46.9 mm Hg (80.0-90.0)
[2020-10-12 04:38] LABS: Basophils % (Manual) 0 % (0.0-1.8); Eosinophils % (Manual) 0 % (0.0-4.3); Total Cells Counted 100
[2020-10-12 04:39] LABS: Macrocytosis Few; Ovalocytes Few; Target Cells Few
[2020-10-12 04:40] LABS: Anisocytosis Few; Platelet Estimate Consistent w Auto
[2020-10-12] MEDS ORDERED: VANCOMYCIN 2,000 MG in SODIUM CHLORIDE 0.9% 500 ML 500 ML IV ONE (05:15)
--- NOTE | 2020-10-12 05:28 | XRay Report ---
CHEST - 1 VIEW INDICATION: line placement COMPARISON: Earlier today FINDINGS: SUPPORT DEVICES: Right IJ CVL with tip at the cavoatrial junction. Otherwise stable support device p ositioning. HEART: Normal heart size. LUNGS/PLEURA: Significantly improved exam with drastically improved aeration in the left lung which was previously completely opacified. There is patchy underlying airspace disease and a small left eff usion. There is also mild patchy right basilar airspace disease and small right basilar effusion. ADDITIONAL FINDINGS: None. IMPRESSION: Improved exam with support devices as above. Signer Name: Shade Lloyd MD Signed: 10/12/2020 5:23 AM Workstation Name: [id number]
--- NOTE | 2020-10-12 05:29 | History and Physical Report ---
History of Present Illness Date of examination: 10/12/20 Date of admission: 10/12/20 02:09 Chief complaint: Shortness of breath of breath, History of present illness: History of presenting illness, Patient is a 65 year old male brought from a senior care by EMS with complaint of shortness of breath, left upper quadrant abdominal pain and associated altered mental status. There is no history of fever, cough, chills, chest pain. nausea or vomiting. Patient had positive COVID-19 test about 2-3 days prior to presentation. Past History Past Medical History: acute [place], diabetes, GERD, hypertension, stroke, other (CIRRHOSIS, ) Past Surgical History: appendectomy, cholecystectomy, Other (G- TUBE PLACEMENT, PACEMAKER, LEFT BKA WITH PROSTHESIS) Social history: no significant social history Family history: no significant family history Medications and Allergies Allergies Allergy/AdvReac Type Severity Reaction Status Date / Time No Known Allergies Allergy Verified 12/29/19 19:25 Home Medications Medication Instructions Recorded Confirmed Last Taken Type Flomax 0.4 mg PO QHS 08/22/19 08/22/19 Unknown History Folic Acid [Folvite] 1 mg PO QDAY 08/22/19 08/22/19 Unknown History Melatonin 3 mg PO QHS 08/22/19 08/22/19 Unknown History Pantoprazole [Protonix TAB] 40 mg PO QDAY 08/22/19 08/22/19 Unknown History Lispro Insulin [HumaLOG] 0 unit SUB-Q Q6HR units 09/10/19 Unknown Rx nadoloL [Corgard] 20 mg PO QDAY tablet 09/10/19 Unknown Rx Apixaban [Eliquis] 2.5 mg PO BID tablet 09/09/20 Unknown Rx amLODIPine 10 mg PO QDAY tablet 09/09/20 Unknown Rx hydrALAZINE [Apresoline TAB] 100 mg PO TID tab 09/09/20 Unknown Rx metroNIDAZOLE [Flagyl TAB] 500 mg PO Q8HR #14 tablet 09/09/20 Unknown Rx Active Meds: Active Medications Acetaminophen (Tylenol) 650 mg PO Q4H PRN PRN Reason: Fever >101 Dexamethasone (Decadron) 6 mg IV DAILY KJ Dextrose (D50w (25gm) Syringe) 0 ml IV Q30MIN PRN; Protocol PRN Reason: Hypoglycemia Fentanyl (Sublimaze) 50 mcg IV Q10MIN PRN PRN Reason: ANALGESIA Heparin Sodium (Porcine) (Heparin) 5,000 unit SUB-Q Q12HR KJ Hydrophilic Ointment (Vaseline Lip Therapy) 1 applic TP Q2HR PRN PRN Reason: Dry Lips Norepinephrine (Levophed Drip 4 Mg/Ns 250 Ml) 4 mg in 250 mls @ 7.5 mls/hr IV TITR KJ; Protocol Last Admin: 10/12/20 04:45 Dose: 30 mcg/min, 112.5 mls/hr Documented by: Fentanyl Citrate (Fentanyl Drip Premix) 2,000 mcg in 100 mls @ 4.55 mls/hr IV TITR KJ; Protocol Last Admin: 10/12/20 00:47 Dose: 1 mcg/kg/hr, 4.55 mls/hr Documented by: Epinephrine 8 mg/ Sodium (Chloride) 250 mls @ 3.75 mls/hr IV TITR ONE; Protocol Stop: 10/14/20 20:15 Last Titration: 10/12/20 03:00 Dose: 10 mcg/min, 18.75 mls/hr Documented by: Azithromycin 500 mg/ Sodium (Chloride) 250 mls @ 250 mls/hr IV Q24HR KJ; Protocol Ceftriaxone Sodium (Rocephin/Ns 2 Gm/100 Ml) 2 gm in 100 mls @ 200 mls/hr IV Q24HR KJ; Protocol Dopamine HCl/Dextrose (Intropin Drip 800 Mg/D5w 250 Ml) 800 mg in 250 mls @ 3.413 mls/hr IV TITR KJ; Protocol Last Admin: 10/12/20 03:40 Dose: 2 mcg/kg/min, 3.413 mls/hr Documented by: Sodium Chloride (Nacl 0.9% 1000 Ml) 1,000 mls @ 125 mls/hr IV DIRECT KJ Vancomycin HCl 2,000 mg/ (Sodium Chloride) 540 mls @ 250 mls/hr IV ONCE ONE Stop: 10/12/20 07:24 Vancomycin HCl 1,250 mg/ (Sodium Chloride) 275 mls @ 166.667 mls/hr IV Q12H [facility] Insulin Human Regular (Humulin R) 0 unit SUB-Q Q4H KJ; Protocol Multi-Ingred Cream/Lotion/Oil/Oint (Artificial Tears Ophth Oint) 1 applic OU Q4HR PRN PRN Reason: Dry Eye(s) Review of Systems Constitutional: weakness, no fever, no sweats, no fatigue Eyes: bilateral: other (NO BILATERAL EYE SYMPTOMS) Cardiovascular: shortness of breath, no chest pain, no orthopnea, no palpitations, no rapid/irregular heart beat, no edema, no syncope, no lightheadedness Respiratory: shortness of breath, no cough, no cough with sputum, no excessive sputum, no hemoptysis, no dyspnea on exertion, no congestion, no wheezing, no pleurisy, no pain Gastrointestinal: no abdominal pain, no nausea, no vomiting, no diarrhea, no constipation, no change in bowel habits, no hematemesis, no melena, no hematochezia, no loss of appetite, no early satiety, no heartburn, no jaundice Genitourinary Male: no dysuria, no hematuria, no flank pain, no discharge, no urinary frequency, no urinary hesitancy, no nocturia, no testicular pain, no testicular lump, no polyuria Rectal: no pain Musculoskeletal: no neck stiffness, no neck pain, no shooting arm pain, no arm numbness/tingling, no low back pain, no shooting leg pain, no leg numbness/tingling, no muscle cramps Integumentary: no rash, no pruritis, no redness, no sores Neurological: change in mentation, confusion, no numbness, no tingling, no seizures, no syncope, no headaches, no migraines, no change in speech, no memory loss Psychiatric: confusion, no anxiety, no change in libido, no suicidal ideation, no disorientation, no depression Endocrine: no polyphagia, no excessive thirst, no polydipsia, no polyuria, no nocturia, no excessive sweating Allergic/Immunologic: no persistent infections Exam - Constitutional Vitals: Temp Pulse Resp BP Pulse Ox 97.4 F L 60 20 101/55 93 10/11/20 22:10 10/12/20 04:15 10/12/20 04:15 10/12/20 04:15 10/12/20 04:15 General appearance: Present: mild distress - EENT Eyes: Present: PERRL, EOM intact ENT: clear oral mucosa - Neck Neck: Present: supple - Respiratory Respiratory effort: normal - Cardiovascular Rhythm: regular Heart Sounds: Present: S1 & S2. Absent: systolic murmur, diastolic murmur, click - Extremities Extremities: no ischemia, No edema Peripheral Pulses: within normal limits - Abdominal General gastrointestinal: Present: soft, non-tender, non-distended. Absent: tender, distended, rigid Male genitourinary: Present: deferred - Rectal Rectal Exam: deferred - Integumentary Integumentary: Present: clear, warm, dry. Absent: rash, clammy - Musculoskeletal Musculoskeletal: strength equal bilaterally HEART Score - HEART Score Risk factors: > 3 risk factors or hx of atherosclerotic disease Troponin: Troponin T < 0.010 ng/mL (0.00-0.029) 10/12/20 04:38 Troponin: < normal limit - Critical Actions Critical Actions: 0-3 pts:0.9-1.7%risk of adverse cardiac event.Candidate for discharge Results - Labs CBC & Chem 7: 10/12/20 00:55 10/12/20 00:55 Labs: Laboratory Last Values WBC 29.6 K/mm3 (4.5-11.0) H 10/12/20 00:55 RBC 4.02 M/mm3 (3.65-5.03) 10/12/20 00:55 Hgb 11.8 gm/dl (11.8-15.2) 10/12/20 00:55 Hct 37.7 % (35.5-45.6) 10/12/20 00:55 MCV 94 fl (84-94) 10/12/20 00:55 MCH 29 pg (28-32) 10/12/20 00:55 MCHC 31 % (32-34) L 10/12/20 00:55 RDW 15.0 % (13.2-15.2) 10/12/20 00:55 Plt Count 415 K/mm3 (140-440) 10/12/20 00:55 Add Manual Diff Complete 10/12/20 00:55 Total Counted 100 10/12/20 00:55 Seg Neuts % (Manual) 87.0 % (40.0-70.0) H 10/12/20 00:55 Band Neutrophils % 0 % 10/12/20 00:55 Lymphocytes % (Manual) 3.0 % (13.4-35.0) L 10/12/20 00:55 Reactive Lymphs % (Man) 0 % 10/12/20 00:55 Monocytes % (Manual) 10.0 % (0.0-7.3) H 10/12/20 00:55 Eosinophils % (Manual) 0 % (0.0-4.3) 10/12/20 00:55 Basophils % (Manual) 0 % (0.0-1.8) 10/12/20 00:55 Metamyelocytes % 0 % 10/12/20 00:55 Myelocytes % 0 % 10/12/20 00:55 Promyelocytes % 0 % 10/12/20 00:55 Blast Cells % 0 % 10/12/20 00:55 Nucleated RBC % Not Reportable 10/12/20 00:55 Seg Neutrophils # Man 25.8 K/mm3 (1.8-7.7) H 10/12/20 00:55 Band Neutrophils # 0.0 K/mm3 10/12/20 00:55 Lymphocytes # (Manual) 0.9 K/mm3 (1.2-5.4) L 10/12/20 00:55 Abs React Lymphs (Man) 0.0 K/mm3 10/12/20 00:55 Monocytes # (Manual) 3.0 K/mm3 (0.0-0.8) H 10/12/20 00:55 Eosinophils # (Manual) 0.0 K/mm3 (0.0-0.4) 10/12/20 00:55 Basophils # (Manual) 0.0 K/mm3 (0.0-0.1) 10/12/20 00:55 Metamyelocytes # 0.0 K/mm3 10/12/20 00:55 Myelocytes # 0.0 K/mm3 10/12/20 00:55 Promyelocytes # 0.0 K/mm3 10/12/20 00:55 Blast Cells # 0.0 K/mm3 10/12/20 00:55 WBC Morphology Not Reportable 10/12/20 00:55 Hypersegmented Neuts Not Reportable 10/12/20 00:55 Hyposegmented Neuts Not Reportable 10/12/20 00:55 Hypogranular Neuts Not Reportable 10/12/20 00:55 Smudge Cells Not Reportable 10/12/20 00:55 Toxic Granulation Not Reportable 10/12/20 00:55 Toxic Vacuolation Not Reportable 10/12/20 00:55 Dohle Bodies Not Reportable 10/12/20 00:55 Pelger-Huet Anomaly Not Reportable 10/12/20 00:55 Ramonita Rods Not Reportable 10/12/20 00:55 Platelet Estimate Consistent w auto 10/12/20 00:55 Clumped Platelets Not Reportable 10/12/20 00:55 Plt Clumps, EDTA Not Reportable 10/12/20 00:55 Large Platelets Not Reportable 10/12/20 00:55 Giant Platelets Not Reportable 10/12/20 00:55 Platelet Satelliting Not Reportable 10/12/20 00:55 Plt Morphology Comment Not Reportable 10/12/20 00:55 RBC Morphology Not Reportable 10/12/20 00:55 Dimorphic RBCs Not Reportable 10/12/20 00:55 Polychromasia Not Reportable 10/12/20 00:55 Hypochromasia Not Reportable 10/12/20 00:55 Poikilocytosis Not Reportable 10/12/20 00:55 Anisocytosis Few 10/12/20 00:55 Microcytosis Not Reportable 10/12/20 00:55 Macrocytosis Few 10/12/20 00:55 Spherocytes Not Reportable 10/12/20 00:55 Pappenheimer Bodies Not Reportable 10/12/20 00:55 Sickle Cells Not Reportable 10/12/20 00:55 Target Cells Few 10/12/20 00:55 Tear Drop Cells Not Reportable 10/12/20 00:55 Ovalocytes Few 10/12/20 00:55 Helmet Cells Not Reportable 10/12/20 00:55 Valle-Chical Bodies Not Reportable 10/12/20 00:55 [place] Rings Not Reportable 10/12/20 00:55 [place] Cells Not Reportable 10/12/20 00:55 Bite Cells Not Reportable 10/12/20 00:55 Crenated Cell Not Reportable 10/12/20 00:55 Elliptocytes Not Reportable 10/12/20 00:55 Acanthocytes (Spur) Not Reportable 10/12/20 00:55 Rouleaux Not Reportable 10/12/20 00:55 Hemoglobin C Crystals Not Reportable 10/12/20 00:55 Schistocytes Not Reportable 10/12/20 00:55 Malaria parasites Not Reportable 10/12/20 00:55 Noel Bodies Not Reportable 10/12/20 00:55 Hem Pathologist Commnt No 10/12/20 00:55 D-Dimer 1732.23 ng/mlDDU (0-234) H 10/12/20 00:55 ABG pH 7.309 pH Units (7.350-7.450) L 10/12/20 03:30 ABG pCO2 56.4 mm Hg 10/12/20 03:30 ABG pO2 46.9 mm Hg (80.0-90.0) L 10/12/20 03:30 ABG HCO3 27.6 mmol/L (20.0-26.0) H 10/12/20 03:30 ABG O2 Saturation 80.1 % (95.0-99.0) L 10/12/20 03:30 ABG O2 Content 12.8 (0.0-44) 10/12/20 03:30 ABG Base Excess 0.5 mmol/L (-2.0-3.0) 10/12/20 03:30 ABG Hemoglobin 11.6 gm/dl (14.0-18.0) L 10/12/20 03:30 ABG Carboxyhemoglobin 1.0 % (0.0-5.0) 10/12/20 03:30 ABG Methemoglobin 0.7 % (0.0-1.5) 10/12/20 03:30 Oxyhemoglobin 78.7 % (95.0-99.0) L 10/12/20 03:30 FiO2 100 % 10/12/20 03:30 Sodium 138 mmol/L (137-145) 10/12/20 00:55 Potassium 4.8 mmol/L (3.6-5.0) 10/12/20 00:55 Chloride 103.5 mmol/L (98-107) 10/12/20 00:55 Carbon Dioxide 24 mmol/L (22-30) 10/12/20 00:55 Anion Gap 15 mmol/L 10/12/20 00:55 BUN 45 mg/dL (9-20) H 10/12/20 00:55 Creatinine 0.8 mg/dL (0.8-1.3) 10/12/20 00:55 Estimated GFR > 60 ml/min 10/12/20 00:55 BUN/Creatinine Ratio 56 % 10/12/20 00:55 Glucose 123 mg/dL (75-100) H 10/12/20 00:55 Glucose 125 mg/dL (75-100) H 10/12/20 00:55 Lactic Acid 1.80 mmol/L (0.7-2.0) 10/12/20 04:38 Calcium 8.0 mg/dL (8.4-10.2) L 10/12/20 00:55 Ferritin 229.1 ng/mL (30.0-300.0) 10/12/20 00:55 Total Bilirubin 0.40 mg/dL (0.1-1.2) 10/12/20 00:55 AST 34 units/L (5-40) 10/12/20 00:55 ALT 15 units/L (7-56) 10/12/20 00:55 Alkaline Phosphatase 203 units/L (35-129) H 10/12/20 00:55 Ammonia 53.0 umol/L (25-60) 10/12/20 00:55 Lactate Dehydrogenase 337 units/L (91-180) H 10/12/20 00:55 Total Creatine Kinase 68 units/L (55-170) 10/12/20 00:55 Troponin T < 0.010 ng/mL (0.00-0.029) 10/12/20 04:38 C-Reactive Protein 4.20 mg/dL (0.00-1.30) H 10/12/20 00:55 Total Protein 6.2 g/dL (6.3-8.2) L 10/12/20 00:55 Albumin 2.3 g/dL (3.9-5) L 10/12/20 00:55 Albumin/Globulin Ratio 0.6 % 10/12/20 00:55 Microbiology: Microbiology 10/12/20 00:55 Peripheral/Venous Blood Culture - Preliminary Culture in Progress 10/11/20 23:20 Peripheral/Venous Blood Culture - Preliminary Culture in Progress Assessment and Plan - Patient Problems (1) Pneumonia due to COVID-19 virus Current Visit: Yes Status: Acute Plan to address problem: 1 I.V ZITHROMAX ANTIBIOTIC 2. I.V ROCEPHIN ANTIBIOTIC TYLENOL UT FOR FEVER 3. CONTACT AND DROPLET ISOLATION 4. INFECTIOUS DISEASE CONSULT 5.I.V DEXAMETHASONE (2) Respiratory failure Current Visit: Yes Status: Acute Plan to address problem: 1 RESPIRATORY THERAPIST TO ATTEND TO VENTILATOR MANAGMENT 2. CRITICAL CARE CONSULT 3. ALBUTEROL NEBULIZER (3) Sepsis Current Visit: Yes Status: Acute Qualifiers: Sepsis type: sepsis due to unspecified organism Sepsis acute organ dysfunction status: with acute organ dysfunction Severe sepsis acute organ dysfunction type: acute respiratory failure Acute respiratory failure type: w ith hypoxia Severe sepsis shock status: with septic shock Qualified Code(s): A41.9 - Sepsis, unspecified organism; R65.21 - Severe sepsis with septic shock; J96.01 - Acute respiratory failure with hypoxia Plan to address problem: 1. I.V ZITHROMAX ANTIBIOTIC 2. I.V ROCEPHIN ANTIBIOTIC 3. I.V VANCOMYCIN ANTIBIOTIC 4. I.V NORMAL SALINE MAINTENANCE FLUID
[2020-10-12] MEDS ORDERED: HEPARIN 5,000 UNIT/1 ML VIAL ONE (08:25)
[2020-10-12] MEDS ORDERED: CEFEPIME/NS 2 GM/100 ML 2 GM/100 ML BAG IV ONE (08:25)
[2020-10-12] MEDS: INSULIN REGULAR, HUMAN 100 UNIT/ML 3ML VIAL SUB-Q SCH ×2 (08:39→10:38)
--- NOTE | 2020-10-12 08:40 | Consultation ---
History of Present Illness Consult date: 10/12/20 Reason for consult: other (AMS/hypoxia) - History of present illness History of present illness: Hx in chart rev'd== d/w ER Past History Past Medical History: acute [place], diabetes, GERD, hypertension, stroke, other (CIRRHOSIS, ) Past Surgical History: appendectomy, cholecystectomy, Other (G- TUBE PLACEMENT, PACEMAKER, LEFT BKA WITH PROSTHESIS) Social history: no significant social history Family history: no significant family history Medications and Allergies Allergies Allergy/AdvReac Type Severity Reaction Status Date / Time No Known Allergies Allergy Verified 12/29/19 19:25 Home Medications Medication Instructions Recorded Confirmed Last Taken Type Flomax 0.4 mg PO QHS 08/22/19 08/22/19 Unknown History Folic Acid [Folvite] 1 mg PO QDAY 08/22/19 08/22/19 Unknown History Melatonin 3 mg PO QHS 08/22/19 08/22/19 Unknown History Pantoprazole [Protonix TAB] 40 mg PO QDAY 08/22/19 08/22/19 Unknown History Lispro Insulin [HumaLOG] 0 unit SUB-Q Q6HR units 09/10/19 Unknown Rx nadoloL [Corgard] 20 mg PO QDAY tablet 09/10/19 Unknown Rx Apixaban [Eliquis] 2.5 mg PO BID tablet 09/09/20 Unknown Rx amLODIPine 10 mg PO QDAY tablet 09/09/20 Unknown Rx hydrALAZINE [Apresoline TAB] 100 mg PO TID tab 09/09/20 Unknown Rx metroNIDAZOLE [Flagyl TAB] 500 mg PO Q8HR #14 tablet 09/09/20 Unknown Rx Active Meds: Active Medications Acetaminophen (Tylenol) 650 mg PO Q4H PRN PRN Reason: Fever >101 Dexamethasone (Decadron) 6 mg IV DAILY KJ Stop: 10/21/20 10:01 Dextrose (D50w (25gm) Syringe) 0 ml IV Q30MIN PRN; Protocol PRN Reason: Hypoglycemia Famotidine (Pepcid) 20 mg IV BID KJ Fentanyl (Sublimaze) 50 mcg IV Q10MIN PRN PRN Reason: ANALGESIA Heparin Sodium (Porcine) (Heparin) 5,000 unit SUB-Q Q12HR KJ Hydrophilic Ointment (Vaseline Lip Therapy) 1 applic TP Q2HR PRN PRN Reason: Dry Lips Norepinephrine (Levophed Drip 4 Mg/Ns 250 Ml) 4 mg in 250 mls @ 7.5 mls/hr IV TITR KJ; Protocol Last Admin: 10/12/20 06:54 Dose: 30 mcg/min, 112.5 mls/hr Documented by: Fentanyl Citrate (Fentanyl Drip Premix) 2,000 mcg in 100 mls @ 4.55 mls/hr IV TITR KJ; Protocol Last Admin: 10/12/20 06:41 Dose: 4 mcg/kg/hr, 18.2 mls/hr Documented by: Epinephrine 8 mg/ Sodium (Chloride) 250 mls @ 3.75 mls/hr IV TITR ONE; Protocol Stop: 10/14/20 20:15 Last Titration: 10/12/20 03:00 Dose: 10 mcg/min, 18.75 mls/hr Documented by: Dopamine HCl/Dextrose (Intropin Drip 800 Mg/D5w 250 Ml) 800 mg in 250 mls @ 3.413 mls/hr IV TITR KJ; Protocol Last Admin: 10/12/20 03:40 Dose: 2 mcg/kg/min, 3.413 mls/hr Documented by: Sodium Chloride (Nacl 0.9% 1000 Ml) 1,000 mls @ 125 mls/hr IV DIRECT KJ Vancomycin HCl 1,250 mg/ (Sodium Chloride) 275 mls @ 166.667 mls/hr IV Q12H KJ Cefepime HCl (Cefepime/Ns 2 Gm/100 Ml) 2 gm in 100 mls @ 200 mls/hr IV Q8HR KJ; Protocol Insulin Human Regular (Humulin R) 0 unit SUB-Q Q4H KJ; Protocol Multi-Ingred Cream/Lotion/Oil/Oint (Artificial Tears Ophth Oint) 1 applic OU Q4HR PRN PRN Reason: Dry Eye(s) Exam Vital Signs Temp Pulse Resp BP Pulse Ox 97.4 F L 74 29 H 92/55 94 10/11/20 22:10 10/11/20 22:10 10/11/20 22:10 10/11/20 22:10 10/11/20 22:10 - Extremities Extremity abnormal: other (deferred due to Covid risk and futility of pt survival) Results - Labs 10/12/20 00:55 10/12/20 00:55 Abnormal lab results 10/12/20 10/12/20 10/12/20 Range/Units 00:55 00:55 00:55 WBC 29.6 H (4.5-11.0) K/mm3 MCHC 31 L (32-34) % Seg Neuts % (Manual) 87.0 H (40.0-70.0) % Lymphocytes % (Manual) 3.0 L (13.4-35.0) % Monocytes % (Manual) 10.0 H (0.0-7.3) % Seg Neutrophils # Man 25.8 H (1.8-7.7) K/mm3 Lymphocytes # (Manual) 0.9 L (1.2-5.4) K/mm3 Monocytes # (Manual) 3.0 H (0.0-0.8) K/mm3 D-Dimer 1732.23 H (0-234) ng/mlDDU ABG pH (7.350-7.450) pH Units ABG pO2 (80.0-90.0) mm Hg ABG HCO3 (20.0-26.0) mmol/L ABG O2 Saturation (95.0-99.0) % ABG Hemoglobin (14.0-18.0) gm/dl Oxyhemoglobin (95.0-99.0) % BUN 45 H (9-20) mg/dL Glucose 123 H (75-100) mg/dL Calcium 8.0 L (8.4-10.2) mg/dL Alkaline Phosphatase 203 H (35-129) units/L Lactate Dehydrogenase (91-180) units/L C-Reactive Protein (0.00-1.30) mg/dL Total Protein 6.2 L (6.3-8.2) g/dL Albumin 2.3 L (3.9-5) g/dL 10/12/20 10/12/20 Range/Units 00:55 03:30 WBC (4.5-11.0) K/mm3 MCHC (32-34) % Seg Neuts % (Manual) (40.0-70.0) % Lymphocytes % (Manual) (13.4-35.0) % Monocytes % (Manual) (0.0-7.3) % Seg Neutrophils # Man (1.8-7.7) K/mm3 Lymphocytes # (Manual) (1.2-5.4) K/mm3 Monocytes # (Manual) (0.0-0.8) K/mm3 D-Dimer (0-234) ng/mlDDU ABG pH 7.309 L (7.350-7.450) pH Units ABG pO2 46.9 L (80.0-90.0) mm Hg ABG HCO3 27.6 H (20.0-26.0) mmol/L ABG O2 Saturation 80.1 L (95.0-99.0) % ABG Hemoglobin 11.6 L (14.0-18.0) gm/dl Oxyhemoglobin 78.7 L (95.0-99.0) % BUN (9-20) mg/dL Glucose 125 H (75-100) mg/dL Calcium (8.4-10.2) mg/dL Alkaline Phosphatase (35-129) units/L Lactate Dehydrogenase 337 H (91-180) units/L C-Reactive Protein 4.20 H (0.00-1.30) mg/dL Total Protein (6.3-8.2) g/dL Albumin (3.9-5) g/dL Diabetes panel 10/12/20 10/12/20 Range/Units 00:55 00:55 Sodium 138 (137-145) mmol/L Potassium 4.8 (3.6-5.0) mmol/L Chloride 103.5 (98-107) mmol/L Carbon Dioxide 24 (22-30) mmol/L BUN 45 H (9-20) mg/dL Creatinine 0.8 (0.8-1.3) mg/dL Glucose 123 H 125 H (75-100) mg/dL Calcium 8.0 L (8.4-10.2) mg/dL AST 34 (5-40) units/L ALT 15 (7-56) units/L Alkaline Phosphatase 203 H (35-129) units/L Total Protein 6.2 L (6.3-8.2) g/dL Albumin 2.3 L (3.9-5) g/dL Calcium panel 10/12/20 Range/Units 00:55 Calcium 8.0 L (8.4-10.2) mg/dL Albumin 2.3 L (3.9-5) g/dL Pituitary panel 10/12/20 10/12/20 Range/Units 00:55 00:55 Sodium 138 (137-145) mmol/L Potassium 4.8 (3.6-5.0) mmol/L Chloride 103.5 (98-107) mmol/L Carbon Dioxide 24 (22-30) mmol/L BUN 45 H (9-20) mg/dL Creatinine 0.8 (0.8-1.3) mg/dL Glucose 123 H 125 H (75-100) mg/dL Calcium 8.0 L (8.4-10.2) mg/dL Adrenal panel 10/12/20 10/12/20 Range/Units 00:55 00:55 Sodium 138 (137-145) mmol/L Potassium 4.8 (3.6-5.0) mmol/L Chloride 103.5 (98-107) mmol/L Carbon Dioxide 24 (22-30) mmol/L BUN 45 H (9-20) mg/dL Creatinine 0.8 (0.8-1.3) mg/dL Glucose 123 H 125 H (75-100) mg/dL Calcium 8.0 L (8.4-10.2) mg/dL Total Bilirubin 0.40 (0.1-1.2) mg/dL AST 34 (5-40) units/L ALT 15 (7-56) units/L Alkaline Phosphatase 203 H (35-129) units/L Total Protein 6.2 L (6.3-8.2) g/dL Albumin 2.3 L (3.9-5) g/dL Assessment and Plan 1. Covid pneumonia (bilateral)-- pt intubated 2. Suspected bowel ischemia (diffuse) 3. Multiple medical problems Overall this pt has no chance of survival. I have informed the son and daughter listed in chart and informed them of the situation. No surgical intervention is warranted due to its futility. Over one hour spent in total eval/care of pt
[2020-10-12 08:48] VITALS: BP 116/56
[2020-10-12] MEDS ORDERED: CEFEPIME/NS 2 GM/100 ML 2 GM/100 ML BAG IV SCH (09:00)
--- NOTE | 2020-10-12 09:08 | Progress Note ---
Assessment and Plan Assessment and plan: -- Pneumonia due to COVID-19 virus Current Visit: Yes Status: Acute Plan to address problem: 1 I.V ZITHROMAX ANTIBIOTIC 2. I.V ROCEPHIN ANTIBIOTIC TYLENOL OH FOR FEVER 3. CONTACT AND DROPLET ISOLATION 4. INFECTIOUS DISEASE CONSULT 5.I.V DEXAMETHASONE --Acute hypoxic respiratory failure requiring intubation Current Visit: Yes Status: Acute Plan to address problem: 1 RESPIRATORY THERAPIST TO AT TEND TO VENTILATOR MANAGMENT 2. CRITICAL CARE CONSULT 3. ALBUTEROL NEBULIZER --Severe sepsis/septic shock Current Visit: Yes Status: Acute Qualifiers: Sepsis type: sepsis due to unspecified organism Sepsis acute organ dysfunction status: with acute organ dysfunction Severe sepsis acute organ dysfunction type: acute respiratory failure Acute respiratory failure type: with hypoxia Severe sepsis shock status: with septic shock Qualified Code(s): A41.9 - Sepsis, unspecified organism; R65.21 - Severe sepsis with septic shock; J96.01 - Acute respiratory failure with hypoxia Plan to address problem: 1. I.V ZITHROMAX ANTIBIOTIC 2. I.V ROCEPHIN ANTIBIOTIC 3. I.V VANCOMYCIN ANTIBIOTIC 4. I.V NORMAL SALINE MAINTENANCE FLUID Patient is critically ill, with multiple medical problems severe sepsis and septic shock CODE STATUS discussed with patient's family mainly the daughter After much discussions, she requested DNR status and all the family members have decided to withdraw care. Critical care time 45 min History Interval history: I have seen and examined the patient in the ER awaiting ICU bed assignment Patient's chart and medications reviewed Patient is critically ill with acute hypoxic respiratory failure requiring intubation on ventilatory support Severe sepsis with septic shock on multiple vasopressors With very poor prognosis Vital signs noted Hospitalist Physical - Constitutional Vitals: Temp Pulse Resp BP Pulse Ox 98.6 F 60 20 116/56 96 10/12/20 08:49 10/12/20 08:45 10/12/20 08:45 10/12/20 08:45 10/12/20 08:45 General appearance: Present: mild distress, well-nourished, other - EENT Eyes: Present: PERRL, EOM intact - Respiratory Respiratory effort: normal Respiratory: bilateral: diminished, rhonchi, negative: rales, wheezing - Cardiovascular Rhythm: regular Heart Sounds: Present: S1 & S2 - Extremities Extremities: no ischemia, No edema - Abdominal General gastrointestinal: soft, non-tender, non-distended, normal bowel sounds - Integumentary Integumentary: Present: clear, warm - Psychiatric Psychiatric: other (Unresponsive on vent) - Neurologic Neurologic: other (On ventilatory support) HEART Score - HEART Score Risk factors: > 3 risk factors or hx of atherosclerotic disease Troponin: Troponin T < 0.010 ng/mL (0.00-0.029) 10/12/20 04:38 Troponin: < normal limit - Critical Actions Critical Actions: 0-3 pts:0.9-1.7%risk of adverse cardiac event.Candidate for discharge Results - Labs CBC & Chem 7: 10/12/20 00:55 10/12/20 00:55 Labs: Laboratory Last Values WBC 29.6 K/mm3 (4.5-11.0) H 10/12/20 00:55 RBC 4.02 M/mm3 (3.65-5.03) 10/12/20 00:55 Hgb 11.8 gm/dl (11.8-15.2) 10/12/20 00:55 Hct 37.7 % (35.5-45.6) 10/12/20 00:55 MCV 94 fl (84-94) 10/12/20 00:55 MCH 29 pg (28-32) 10/12/20 00:55 MCHC 31 % (32-34) L 10/12/20 00:55 RDW 15.0 % (13.2-15.2) 10/12/20 00:55 Plt Count 415 K/mm3 (140-440) 10/12/20 00:55 Add Manual Diff Complete 10/12/20 00:55 Total Counted 100 10/12/20 00:55 Seg Neuts % (Manual) 87.0 % (40.0-70.0) H 10/12/20 00:55 Band Neutrophils % 0 % 10/12/20 00:55 Lymphocytes % (Manual) 3.0 % (13.4-35.0) L 10/12/20 00:55 Reactive Lymphs % (Man) 0 % 10/12/20 00:55 Monocytes % (Manual) 10.0 % (0.0-7.3) H 10/12/20 00:55 Eosinophils % (Manual) 0 % (0.0-4.3) 10/12/20 00:55 Basophils % (Manual) 0 % (0.0-1.8) 10/12/20 00:55 Metamyelocytes % 0 % 10/12/20 00:55 Myelocytes % 0 % 10/12/20 00:55 Promyelocytes % 0 % 10/12/20 00:55 Blast Cells % 0 % 10/12/20 00:55 Nucleated RBC % Not Reportable 10/12/20 00:55 Seg Neutrophils # Man 25.8 K/mm3 (1.8-7.7) H 10/12/20 00:55 Band Neutrophils # 0.0 K/mm3 10/12/20 00:55 Lymphocytes # (Manual) 0.9 K/mm3 (1.2-5.4) L 10/12/20 00:55 Abs React Lymphs (Man) 0.0 K/mm3 10/12/20 00:55 Monocytes # (Manual) 3.0 K/mm3 (0.0-0.8) H 10/12/20 00:55 Eosinophils # (Manual) 0.0 K/mm3 (0.0-0.4) 10/12/20 00:55 Basophils # (Manual) 0.0 K/mm3 (0.0-0.1) 10/12/20 00:55 Metamyelocytes # 0.0 K/mm3 10/12/20 00:55 Myelocytes # 0.0 K/mm3 10/12/20 00:55 Promyelocytes # 0.0 K/mm3 10/12/20 00:55 Blast Cells # 0.0 K/mm3 10/12/20 00:55 WBC Morphology Not Reportable 10/12/20 00:55 Hypersegmented Neuts Not Reportable 10/12/20 00:55 Hyposegmented Neuts Not Reportable 10/12/20 00:55 Hypogranular Neuts Not Reportable 10/12/20 00:55 Smudge Cells Not Reportable 10/12/20 00:55 Toxic Granulation Not Reportable 10/12/20 00:55 Toxic Vacuolation Not Reportable 10/12/20 00:55 Dohle Bodies Not Reportable 10/12/20 00:55 Pelger-Huet Anomaly Not Reportable 10/12/20 00:55 Ramonita Rods Not Reportable 10/12/20 00:55 Platelet Estimate Consistent w auto 10/12/20 00:55 Clumped Platelets Not Reportable 10/12/20 00:55 Plt Clumps, EDTA Not Reportable 10/12/20 00:55 Large Platelets Not Reportable 10/12/20 00:55 Giant Platelets Not Reportable 10/12/20 00:55 Platelet Satelliting Not Reportable 10/12/20 00:55 Plt Morphology Comment Not Reportable 10/12/20 00:55 RBC Morphology Not Reportable 10/12/20 00:55 Dimorphic RBCs Not Reportable 10/12/20 00:55 Polychromasia Not Reportable 10/12/20 00:55 Hypochromasia Not Reportable 10/12/20 00:55 Poikilocytosis Not Reportable 10/12/20 00:55 Anisocytosis Few 10/12/20 00:55 Microcytosis Not Reportable 10/12/20 00:55 Macrocytosis Few 10/12/20 00:55 Spherocytes Not Reportable 10/12/20 00:55 Pappenheimer Bodies Not Reportable 10/12/20 00:55 Sickle Cells Not Reportable 10/12/20 00:55 Target Cells Few 10/12/20 00:55 Tear Drop Cells Not Reportable 10/12/20 00:55 Ovalocytes Few 10/12/20 00:55 Helmet Cells Not Reportable 10/12/20 00:55 [employer] [employer] [employer] Bodies Not Reportable 10/12/20 00:55 [place] Rings Not Reportable 10/12/20 00:55 Freddy Cells Not Reportable 10/12/20 00:55 Bite Cells Not Reportable 10/12/20 00:55 Crenated Cell Not Reportable 10/12/20 00:55 Elliptocytes Not Reportable 10/12/20 00:55 Acanthocytes (Spur) Not Reportable 10/12/20 00:55 Rouleaux Not Reportable 10/12/20 00:55 Hemoglobin C Crystals Not Reportable 10/12/20 00:55 Schistocytes Not Reportable 10/12/20 00:55 Malaria parasites Not Reportable 10/12/20 00:55 Noel Bodies Not Reportable 10/12/20 00:55 Hem Pathologist Commnt No 10/12/20 00:55 D-Dimer 1732.23 ng/mlDDU (0-234) H 10/12/20 00:55 ABG pH 7.309 pH Units (7.350-7.450) L 10/12/20 03:30 ABG pCO2 56.4 mm Hg 10/12/20 03:30 ABG pO2 46.9 mm Hg (80.0-90.0) L 10/12/20 03:30 ABG HCO3 27.6 mmol/L (20.0-26.0) H 10/12/20 03:30 ABG O2 Saturation 80.1 % (95.0-99.0) L 10/12/20 03:30 ABG O2 Content 12.8 (0.0-44) 10/12/20 03:30 ABG Base Excess 0.5 mmol/L (-2.0-3.0) 10/12/20 03:30 ABG Hemoglobin 11.6 gm/dl (14.0-18.0) L 10/12/20 03:30 ABG Carboxyhemoglobin 1.0 % (0.0-5.0) 10/12/20 03:30 ABG Methemoglobin 0.7 % (0.0-1.5) 10/12/20 03:30 Oxyhemoglobin 78.7 % (95.0-99.0) L 10/12/20 03:30 FiO2 100 % 10/12/20 03:30 Sodium 138 mmol/L (137-145) 10/12/20 00:55 Potassium 4.8 mmol/L (3.6-5.0) 10/12/20 00:55 Chloride 103.5 mmol/L (98-107) 10/12/20 00:55 Carbon Dioxide 24 mmol/L (22-30) 10/12/20 00:55 Anion Gap 15 mmol/L 10/12/20 00:55 BUN 45 mg/dL (9-20) H 10/12/20 00:55 Creatinine 0.8 mg/dL (0.8-1.3) 10/12/20 00:55 Estimated GFR > 60 ml/min 10/12/20 00:55 BUN/Creatinine Ratio 56 % 10/12/20 00:55 Glucose 123 mg/dL (75-100) H 10/12/20 00:55 Glucose 125 mg/dL (75-100) H 10/12/20 00:55 POC Glucose 153 mg/dL (70-105) H 10/12/20 08:34 Lactic Acid 1.80 mmol/L (0.7-2.0) 10/12/20 04:38 Calcium 8.0 mg/dL (8.4-10.2) L 10/12/20 00:55 Ferritin 229.1 ng/mL (30.0-300.0) 10/12/20 00:55 Total Bilirubin 0.40 mg/dL (0.1-1.2) 10/12/20 00:55 AST 34 units/L (5-40) 10/12/20 00:55 ALT 15 units/L (7-56) 10/12/20 00:55 Alkaline Phosphatase 203 units/L (35-129) H 10/12/20 00:55 Ammonia 53.0 umol/L (25-60) 10/12/20 00:55 Lactate Dehydrogenase 337 units/L (91-180) H 10/12/20 00:55 Total Creatine Kinase 68 units/L (55-170) 10/12/20 00:55 Troponin T < 0.010 ng/mL (0.00-0.029) 10/12/20 04:38 C-Reactive Protein 4.20 mg/dL (0.00-1.30) H 10/12/20 00:55 Total Protein 6.2 g/dL (6.3-8.2) L 10/12/20 00:55 Albumin 2.3 g/dL (3.9-5) L 10/12/20 00:55 Albumin/Globulin Ratio 0.6 % 10/12/20 00:55 Microbiology: Microbiology 10/12/20 00:55 Peripheral/Venous Blood Culture - Preliminary Culture in Progress 10/11/20 23:20 Peripheral/Venous Blood Culture - Preliminary Culture in Progress De La Garza/IV: IV Catheter Type [Left INT / Saline Lock Antecubital] Active Medications - Current Medications Current Medications: Generic Name Dose Route Start Last Admin Trade Name Freq PRN Reason Stop Dose Admin Acetaminophen 650 mg 10/12/20 03:28 Tylenol PO Q4H PRN Fever >101 Dexamethasone 6 mg 10/12/20 10:00 Decadron IV 10/21/20 10:01 DAILY KJ Dextrose 0 ml 10/12/20 03:39 D50w (25gm) Syringe IV Q30MIN PRN Hypoglycemia Protocol Famotidine 20 mg 10/12/20 10:00 Pepcid IV BID KJ Fentanyl 50 mcg 10/12/20 00:31 Sublimaze IV Q10MIN PRN ANALGESIA Heparin Sodium (Porcine) 5,000 unit 10/12/20 03:30 Heparin SUB-Q Q12HR KJ Hydrophilic Ointment 1 applic 10/12/20 00:31 Vaseline Lip Therapy TP Q2HR PRN Dry Lips Norepinephrine 4 mg in 250 mls @ 7.5 mls/hr 10/12/20 01:00 10/12/20 06:54 Levophed Drip 4 Mg/Ns 250 Ml IV 30 mcg/min TITR KJ 112.5 mls/hr Administration Protocol 2 MCG/MIN Fentanyl Citrate 2,000 mcg in 100 mls @ 4.55 mls/hr 10/12/20 01:00 10/12/20 06:41 Fentanyl Drip Premix IV 4 mcg/kg/hr TITR KJ 18.2 mls/hr Administration Protocol 1 MCG/KG/HR Epinephrine 8 mg/ Sodium 250 mls @ 3.75 mls/hr 10/12/20 01:36 10/12/20 03:00 Chloride IV 10/14/20 20:15 10 mcg/min TITR ONE 18.75 mls/hr Titration Protocol 2 MCG/MIN Dopamine HCl/Dextrose 800 mg in 250 mls @ 3.413 mls/hr 10/12/20 04:00 01/27 03:40 Intropin Drip 800 Mg/D5w 250 Ml IV 2 mcg/kg/min TITR KJ 3.413 mls/hr Administration Protocol 2 MCG/KG/MIN Sodium Chloride 1,000 mls @ 125 mls/hr 10/12/20 03:45 Nacl 0.9% 1000 Ml IV DIRECT KJ Vancomycin HCl 1,250 mg/ 275 mls @ 166.667 mls/hr 10/12/20 18:00 Sodium Chloride IV Q12H KJ Cefepime HCl 2 gm in 100 mls @ 200 mls/hr 10/12/20 09:00 10/12/20 08:37 Cefepime/Ns 2 Gm/100 Ml IV 200 mls/hr Q8HR KJ Administration Protocol Insulin Human Regular 0 unit 10/12/20 04:00 10/12/20 08:39 Humulin R SUB-Q 1 unit Q4H KJ Administration Protocol Multi-Ingred Cream/Lotion/Oil/Oint 1 applic 10/12/ 00:31 Artificial Tears Ophth Oint OU Q4HR PRN Dry Eye(s)
[2020-10-12] MEDS ORDERED: dexAMETHasone 4 MG/ML VIAL ONE (09:42)
[2020-10-12] MEDS ORDERED: FAMOTIDINE 20 MG/2 ML INJ IV ONE (09:43)
[2020-10-12] MEDS ORDERED: FAMOTIDINE 20 MG/2 ML INJ IV SCH (10:00)
[2020-10-12] MEDS ORDERED: AZITHROMYCIN 500 MG in SODIUM CHLORIDE 0.9% 250ML 250 ML IV SCH (10:00)
[2020-10-12] MEDS ORDERED: cefTRIAXone/NS 2 GM/100 ML 2 GM/100 ML BAG IV SCH (10:00)
[2020-10-12] MEDS ORDERED: dexAMETHasone 4 MG/ML VIAL IV SCH (10:00)
[2020-10-12] MEDS: HEPARIN 5,000 UNIT/1 ML VIAL SUB-Q SCH ×2 (10:07→10:38)
--- NOTE | 2020-10-12 11:14 | Consultation ---
History of Present Illness Consult date: 10/12/20 Reason for consult: hypoxemia History of present illness: 65 y/o male who presented to the ED last night secondary to shortness of breath and what I presume is abdominal pain. Patient was hypoxic on arrival and became more hypoxic in the ED so was intubated. he was also hypotensive despite several boluses of fluid so a central line was placed and patient was started on pressors. Unfortunately he had a CT of the abdomen pelvis which showed diffuse disease. Reviewed surgery note from this am with grim prognosis. patient is on 100% FiO2 but is also Fentanyl drip at 3 mcgs as well. Remainder is unobtainable as patient is intubated and sedated. Patient is also COVID positive Past History Past Medical History: acute [place], diabetes, GERD, hypertension, stroke, other (CIRRHOSIS, ) Past Surgical History: appendectomy, cholecystectomy, Other (G- TUBE PLACEMENT, PACEMAKER, LEFT BKA WITH PROSTHESIS) Social history: no significant social history Family history: no significant family history Medications and Allergies Allergies Allergy/AdvReac Type Severity Reaction Status Date / Time No Known Allergies Allergy Verified 12/29/19 19:25 Home Medications Medication Instructions Recorded Confirmed Last Taken Type Flomax 0.4 mg PO QHS 08/22/19 08/22/19 Unknown History Folic Acid [Folvite] 1 mg PO QDAY 08/22/19 08/22/19 Unknown History Melatonin 3 mg PO QHS 08/22/19 08/22/19 Unknown History Pantoprazole [Protonix TAB] 40 mg PO QDAY 08/22/19 08/22/19 Unknown History Lispro Insulin [HumaLOG] 0 unit SUB-Q Q6HR units 09/10/19 Unknown Rx nadoloL [Corgard] 20 mg PO QDAY tablet 09/10/19 Unknown Rx Apixaban [Eliquis] 2.5 mg PO BID tablet 09/09/20 Unknown Rx amLODIPine 10 mg PO QDAY tablet 09/09/20 Unknown Rx hydrALAZINE [Apresoline TAB] 100 mg PO TID tab 09/09/20 Unknown Rx metroNIDAZOLE [Flagyl TAB] 500 mg PO Q8HR #14 tablet 09/09/20 Unknown Rx Active Meds: Active Medications Acetaminophen (Tylenol) 650 mg PO Q4H PRN PRN Reason: Fever >101 Dexamethasone (Decadron) 6 mg IV DAILY KJ Stop: 10/21/20 10:01 Last Admin: 10/12/20 10:05 Dose: 6 mg Documented by: Dextrose (D50w (25gm) Syringe) 0 ml IV Q30MIN PRN; Protocol PRN Reason: Hypoglycemia Famotidine (Pepcid) 20 mg IV BID [facility] Last Admin: 10/12/20 10:05 Dose: 20 mg Documented by: Fentanyl (Sublimaze) 50 mcg IV Q10MIN PRN PRN Reason: ANALGESIA Heparin Sodium (Porcine) (Heparin) 5,000 unit SUB-Q Q12HR KJ Last Admin: 10/12/20 10:38 Dose: Not Given Documented by: Hydrophilic Ointment (Vaseline Lip Therapy) 1 applic TP Q2HR PRN PRN Reason: Dry Lips Norepinephrine (Levophed Drip 4 Mg/Ns 250 Ml) 4 mg in 250 mls @ 7.5 mls/hr IV TITR KJ; Protocol Last Admin: 10/12/20 06:54 Dose: 30 mcg/min, 112.5 mls/hr Documented by: Fentanyl Citrate (Fentanyl Drip Premix) 2,000 mcg in 100 mls @ 4.55 mls/hr IV TITR KJ; Protocol Last Admin: 10/12/20 06:41 Dose: 4 mcg/kg/hr, 18.2 mls/hr Documented by: Epinephrine 8 mg/ Sodium (Chloride) 250 mls @ 3.75 mls/hr IV TITR ONE; Protocol Stop: 10/14/20 20:15 Last Titration: 10/12/20 03:00 Dose: 10 mcg/min, 18.75 mls/hr Documented by: Dopamine HCl/Dextrose (Intropin Drip 800 Mg/D5w 250 Ml) 800 mg in 250 mls @ 3.413 mls/hr IV TITR KJ; Protocol Last Admin: 10/12/20 03:40 Dose: 2 mcg/kg/min, 3.413 mls/hr Documented by: Sodium Chloride (Nacl 0.9% 1000 Ml) 1,000 mls @ 125 mls/hr IV DIRECT KJ Vancomycin HCl 1,250 mg/ (Sodium Chloride) 275 mls @ 166.667 mls/hr IV Q12H KJ Cefepime HCl (Cefepime/Ns 2 Gm/100 Ml) 2 gm in 100 mls @ 200 mls/hr IV Q8HR KJ; Protocol Last Admin: 10/12/20 08:37 Dose: 200 mls/hr Documented by: Insulin Human Regular (Humulin R) 0 unit SUB-Q Q4H [facility]; Protocol Last Admin: 10/12/20 10:38 Dose: Not Given Documented by: Multi-Ingred Cream/Lotion/Oil/Oint (Artificial Tears Ophth Oint) 1 applic OU Q4 HR PRN PRN Reason: Dry Eye(s) Review of Systems ROS unobtainable: due to endotracheal tube, due to mental status Physical Examination Vital signs: Vital Signs Temp Pulse Resp BP Pulse Ox 97.4 F L 74 29 H 92/55 94 10/11/20 22:10 10/11/20 22:10 10/11/20 22:10 10/11/20 22:10 10/11/20 22:10 General appearance: other (acute ill on mechanical ventilation and sedated) ENT: other (orally intubated) Results - Laboratory Findings CBC and BMP: 10/12/20 00:55 10/12/20 00:55 ABG ABG pH 7.309 pH Units (7.350-7.450) L 10/12/20 03:30 ABG pCO2 56.4 mm Hg 10/12/20 03:30 ABG pO2 46.9 mm Hg (80.0-90.0) L 10/12/20 03:30 ABG O2 Saturation 80.1 % (95.0-99.0) L 10/12/20 03:30 PT/INR, D-dimer D-Dimer 1732.23 ng/mlDDU (0-234) H 10/12/20 00:55 Abnormal lab findings: Abnormal Labs 10/12/20 10/12/20 10/12/20 00:55 00:55 00:55 WBC 29.6 H MCHC 31 L Seg Neuts % (Manual) 87.0 H Lymphocytes % (Manual) 3.0 L Monocytes % (Manual) 10.0 H Seg Neutrophils # Man 25.8 H Lymphocytes # (Manual) 0.9 L Monocytes # (Manual) 3.0 H D-Dimer 1732.23 H ABG pH ABG pO2 ABG HCO3 ABG O2 Saturation ABG Hemoglobin Oxyhemoglobin BUN 45 H Glucose 123 H POC Glucose Calcium 8.0 L Alkaline Phosphatase 203 H Lactate Dehydrogenase C-Reactive Protein Total Protein 6.2 L Albumin 2.3 L 10/12/20 10/12/20 10/12/20 00:55 03:30 08:34 WBC MCHC Seg Neuts % (Manual) Lymphocytes % (Manual) Monocytes % (Manual) Seg Neutrophils # Man Lymphocytes # (Manual) Monocytes # (Manual) D-Dimer ABG pH 7.309 L ABG pO2 46.9 L ABG HCO3 27.6 H ABG O2 Saturation 80.1 L ABG Hemoglobin 11.6 L Oxyhemoglobin 78.7 L BUN Glucose 125 H POC Glucose 153 H Calcium Alkaline Phosphatase Lactate Dehydrogenase 337 H C-Reactive Protein 4.20 H Total Protein Albumin - Diagnostic Findings Chest x-ray: image reviewed CT scan - chest: image reviewed Assessment and Plan 65 y/o male with acute respiratory failure secondary to diffuse ischemic colitis Appears to be a very poor prognosis and if no surgery is done, patient will ultimately pass away despite resuscitative efforts. No family is present but based on surgery note they have been made aware. Patient is maxed on levophed and is also on an epi drip. Would suggest having family come in to see the patient from afar given his COVID status and that code status be addressed as he will have arrest at some point and CPR will not fix the underlying problem. In the meantime: 1. Continue aggressive volume resuscitation. Needs to have bolus fluids. Will order LR x 4 liters for bolus therapy. Maintenance is fine but will not help the current situation. 2. Spoke with pharmacy and will broaden abx coverage given patient came from an outside facility 3. He should be on steroids (Dexamethasone) 6mg IV/PO daily for his COVID 4. Given his current clinical state, despite normal renal function, I'm not sure if he is a candidate for Remdesivir 5. Overall prognosis is extremely poor. CCT 31 minutes.
--- NOTE | 2020-10-12 11:36 | Event Note ---
Date: 10/12/20 The daughter Ms. Mcadams in consultation with other family members have decided to withdraw care Signed the necessary documents, patient is DNR status. The implications of withdrawing care and different options afterwards were discussed with Ms. Mcadams She verbalized understanding, I answered all her questions We will extubate and withdraw all care as per family's request
--- NOTE | 2020-10-12 11:42 | Progress Note ---
Subjective Date of service: 10/12/20 Interval history: Noted family decided to withdraw care, as such will sign off. Please let us know if we can be of any assistance. Objective - Constitutional Vitals: Vital Signs Temp Pulse Resp BP Pulse Ox 98.6 F 60 20 116/56 96 10/12/20 08:49 10/12/20 08:45 10/12/20 08:45 10/12/20 08:45 10/12/20 08:45 Temperature -Last 24 Hours Temperature 98.6 F Temperature 97.4 F - Labs CBC & Chem 7: 10/12/20 00:55 10/12/20 00:55 Labs: Abnormal lab results 10/12/20 10/12/20 10/12/20 Range/Units 00:55 00:55 00:55 WBC 29.6 H (4.5-11.0) K/mm3 MCHC 31 L (32-34) % Seg Neuts % (Manual) 87.0 H (40.0-70.0) % Lymphocytes % (Manual) 3.0 L (13.4-35.0) % Monocytes % (Manual) 10.0 H (0.0-7.3) % Seg Neutrophils # Man 25.8 H (1.8-7.7) K/mm3 Lymphocytes # (Manual) 0.9 L (1.2-5.4) K/mm3 Monocytes # (Manual) 3.0 H (0.0-0.8) K/mm3 D-Dimer 1732.23 H (0-234) ng/mlDDU ABG pH (7.350-7.450) pH Units ABG pO2 (80.0-90.0) mm Hg ABG HCO3 (20.0-26.0) mmol/L ABG O2 Saturation (95.0-99.0) % ABG Hemoglobin (14.0-18.0) gm/dl Oxyhemoglobin (95.0-99.0) % BUN 45 H (9-20) mg/dL Glucose 123 H (75-100) mg/dL POC Glucose (70-105) mg/dL Calcium 8.0 L (8.4-10.2) mg/dL Alkaline Phosphatase 203 H (35-129) units/L Lactate Dehydrogenase (91-180) units/L C-Reactive Protein (0.00-1.30) mg/dL Total Protein 6.2 L (6.3-8.2) g/dL Albumin 2.3 L (3.9-5) g/dL 10/12/20 10/12/20 10/12/20 Range/Units 00:55 03:30 08:34 WBC (4.5-11.0) K/mm3 MCHC (32-34) % Seg Neuts % (Manual) (40.0-70.0) % Lymphocytes % (Manual) (13.4-35.0) % Monocytes % (Manual) (0.0-7.3) % Seg Neutrophils # Man (1.8-7.7) K/mm3 Lymphocytes # (Manual) (1.2-5.4) K/mm3 Monocytes # (Manual) (0.0-0.8) K/mm3 D-Dimer (0-234) ng/mlDDU ABG pH 7.309 L (7.350-7.450) pH Units ABG pO2 46.9 L (80.0-90.0) mm Hg ABG HCO3 27.6 H (20.0-26.0) mmol/L ABG O2 Saturation 80.1 L (95.0-99.0) % ABG Hemoglobin 11.6 L (14.0-18.0) gm/dl Oxyhemoglobin 78.7 L (95.0-99.0) % BUN (9-20) mg/dL Glucose 125 H (75-100) mg/dL POC Glucose 153 H (70-105) mg/dL Calcium (8.4-10.2) mg/dL Alkaline Phosphatase (35-129) units/L Lactate Dehydrogenase 337 H (91-180) units/L C-Reactive Protein 4.20 H (0.00-1.30) mg/dL Total Protein (6.3-8.2) g/dL Albumin (3.9-5) g/dL
--- NOTE | 2020-10-12 16:36 | Death Summary ---
Summary - Providers Date of service: 10/12/20 Consults: 10/12/20 02:05 Consult to Physician [CONS] Routine Comment: Consulting Provider: EN MEIER Physician Instructions: Reason For Exam: covid, pna 10/12/20 03:36 Consult to Physician [CONS] Routine Comment: Spoke to at 0650 Consulting Provider: CECILLE BEATTY Physician Instructions: Reason For Exam: ICU ADMISSION/USE OF PRESSORS 10/12/20 05:18 Consult to Physician [CONS] Routine Comment: Dr. Ly spoke with Dr. Hobbs @ 0513 Consulting Provider: ALPHONSE HOBBS Physician Instructions: Reason For Exam: shock bowel Attending: KERMIT WAGNER - summary Date of admission: 10/12/20 02:09 Date of : 10/12/20 - Final diagnosis (1) Acute respiratory failure with hypoxia Note: Final diagnosis: (2) Severe sepsis Note: Final diagnosis: (3) Septic shock Note: Final diagnosis: (4) Pneumonia due to COVID-19 virus Note: Final diagnosis: (5) Severe malnutrition Note: Final diagnosis:
--- NOTE | 2020-10-12 16:38 | Progress Note ---
Hospitalist Physical - Constitutional Vitals: Temp Pulse Resp BP Pulse Ox 98.6 F 60 20 116/56 96 10/12/20 08:49 10/12/20 08:45 10/12/20 08:45 10/12/20 08:45 10/12/20 08:45 General appearance: Present: mild distress, well-nourished, other HEART Score - HEART Score Risk factors: > 3 risk factors or hx of atherosclerotic disease Troponin: Troponin T < 0.010 ng/mL (0.00-0.029) 10/12/20 08:38 Troponin: < normal limit - Critical Actions Critical Actions: 0-3 pts:0.9-1.7%risk of adverse cardiac event.Candidate for discharge Results - Labs CBC & Chem 7: 10/12/20 00:55 10/12/20 00:55 Labs: Laboratory Last Values WBC 29.6 K/mm3 (4.5-11.0) H 10/12/20 00:55 RBC 4.02 M/mm3 (3.65-5.03) 10/12/20 00:55 Hgb 11.8 gm/dl (11.8-15.2) 10/12/20 00:55 Hct 37.7 % (35.5-45.6) 10/12/20 00:55 MCV 94 fl (84-94) 10/12/20 00:55 MCH 29 pg (28-32) 10/12/20 00:55 MCHC 31 % (32-34) L 10/12/20 00:55 RDW 15.0 % (13.2-15.2) 10/12/20 00:55 Plt Count 415 K/mm3 (140-440) 10/12/20 00:55 Add Manual Diff Complete 10/12/20 00:55 Total Counted 100 10/12/20 00:55 Seg Neuts % (Manual) 87.0 % (40.0-70.0) H 10/12/20 00:55 Band Neutrophils % 0 % 10/12/20 00:55 Lymphocytes % (Manual) 3.0 % (13.4-35.0) L 10/12/20 00:55 Reactive Lymphs % (Man) 0 % 10/12/20 00:55 Monocytes % (Manual) 10.0 % (0.0-7.3) H 10/12/20 00:55 Eosinophils % (Manual) 0 % (0.0-4.3) 10/12/20 00:55 Basophils % (Manual) 0 % (0.0-1.8) 10/12/20 00:55 Metamyelocytes % 0 % 10/12/20 00:55 Myelocytes % 0 % 10/12/20 00:55 Promyelocytes % 0 % 10/12/20 00:55 Blast Cells % 0 % 10/12/20 00:55 Nucleated RBC % Not Reportable 10/12/20 00:55 Seg Neutrophils # Man 25.8 K/mm3 (1.8-7.7) H 10/12/20 00:55 Band Neutrophils # 0.0 K/mm3 10/12/20 00:55 Lymphocytes # (Manual) 0.9 K/mm3 (1.2-5.4) L 10/12/20 00:55 Abs React Lymphs (Man) 0.0 K/mm3 10/12/20 00:55 Monocytes # (Manual) 3.0 K/mm3 (0.0-0.8) H 10/12/20 00:55 Eosinophils # (Manual) 0.0 K/mm3 (0.0-0.4) 10/12/20 00:55 Basophils # (Manual) 0.0 K/mm3 (0.0-0.1) 10/12/20 00:55 Metamyelocytes # 0.0 K/mm3 10/12/20 00:55 Myelocytes # 0.0 K/mm3 10/12/20 00:55 Promyelocytes # 0.0 K/mm3 10/12/20 00:55 Blast Cells # 0.0 K/mm3 10/12/20 00:55 WBC Morphology Not Reportable 10/12/20 00:55 Hypersegmented Neuts Not Reportable 10/12/20 00:55 Hyposegmented Neuts Not Reportable 10/12/20 00:55 Hypogranular Neuts Not Reportable 10/12/20 00:55 Smudge Cells Not Reportable 10/12/20 00:55 Toxic Granulation Not Reportable 10/12/20 00:55 Toxic Vacuolation Not Reportable 10/12/20 00:55 Dohle Bodies Not Reportable 10/12/20 00:55 Pelger-Huet Anomaly Not Reportable 10/12/20 00:55 Ramonita Rods Not Reportable 10/12/20 00:55 Platelet Estimate Consistent w auto 10/12/20 00:55 Clumped Platelets Not Reportable 10/12/20 00:55 Plt Clumps, EDTA Not Reportable 10/12/20 00:55 Large Platelets Not Reportable 10/12/20 00:55 Giant Platelets Not Reportable 10/12/20 00:55 Platelet Satelliting Not Reportable 10/12/20 00:55 Plt Morphology Comment Not Reportable 10/12/20 00:55 RBC Morphology Not Reportable 10/12/20 00:55 Dimorphic RBCs Not Reportable 10/12/20 00:55 Polychromasia Not Reportable 10/12/20 00:55 Hypochromasia Not Reportable 10/12/20 00:55 Poikilocytosis Not Reportable 10/12/20 00:55 Anisocytosis Few 10/12/20 00:55 Microcytosis Not Reportable 10/12/20 00:55 Macrocytosis Few 10/12/20 00:55 Spherocytes Not Reportable 10/12/20 00:55 Pappenheimer Bodies Not Reportable 10/12/20 00:55 Sickle Cells Not Reportable 10/12/20 00:55 Target Cells Few 10/12/20 00:55 Tear Drop Cells Not Reportable 10/12/20 00:55 Ovalocytes Few 10/12/20 00:55 Helmet Cells Not Reportable 10/12/20 00:55 [place] Bodies Not Reportable 10/12/20 00:55 [place] Rings Not Reportable 10/12/20 00:55 Rogers Cells Not Reportable 10/12/20 00:55 Bite Cells Not Reportable 10/12/20 00:55 Crenated Cell Not Reportable 10/12/20 00:55 Elliptocytes Not Reportable 10/12/20 00:55 Acanthocytes (Spur) Not Reportable 10/12/20 00:55 Rouleaux Not Reportable 10/12/20 00:55 Hemoglobin C Crystals Not Reportable 10/12/20 00:55 Schistocytes Not Reportable 10/12/20 00:55 Malaria parasites Not Reportable 10/12/20 00:55 Noel Bodies Not Reportable 10/12/20 00:55 Hem Pathologist Commnt No 10/12/20 00:55 D-Dimer 1732.23 ng/mlDDU (0-234) H 10/12/20 00:55 ABG pH 7.309 pH Units (7.350-7.450) L 10/12/20 03:30 ABG pCO2 56.4 mm Hg 10/12/20 03:30 ABG pO2 46.9 mm Hg (80.0-90.0) L 10/12/20 03:30 ABG HCO3 27.6 mmol/L (20.0-26.0) H 10/12/20 03:30 ABG O2 Saturation 80.1 % (95.0-99.0) L 10/12/20 03:30 ABG O2 Content 12.8 (0.0-44) 10/12/20 03:30 ABG Base Excess 0.5 mmol/L (-2.0-3.0) 10/12/20 03:30 ABG Hemoglobin 11.6 gm/dl (14.0-18.0) L 10/12/20 03:30 ABG Carboxyhemoglobin 1.0 % (0.0-5.0) 10/12/20 03:30 ABG Methemoglobin 0.7 % (0.0-1.5) 10/12/20 03:30 Oxyhemoglobin 78.7 % (95.0-99.0) L 10/12/20 03:30 FiO2 100 % 10/12/20 03:30 Sodium 138 mmol/L (137-145) 10/12/20 00:55 Potassium 4.8 mmol/L (3.6-5.0) 10/12/20 00:55 Chloride 103.5 mmol/L (98-107) 10/12/20 00:55 Carbon Dioxide 24 mmol/L (22-30) 10/12/20 00:55 Anion Gap 15 mmol/L 10/12/20 00:55 BUN 45 mg/dL (9-20) H 10/12/20 00:55 Creatinine 0.8 mg/dL (0.8-1.3) 10/12/20 00:55 Estimated GFR > 60 ml/min 10/12/20 00:55 BUN/Creatinine Ratio 56 % 10/12/20 00:55 Glucose 123 mg/dL (75-100) H 10/12/20 00:55 Glucose 125 mg/dL (75-100) H 10/12/20 00:55 POC Glucose 153 mg/dL (70-105) H 10/12/20 08:34 Lactic Acid 1.80 mmol/L (0.7-2.0) 10/12/20 04:38 Calcium 8.0 mg/dL (8.4-10.2) L 10/12/20 00:55 Ferritin 229.1 ng/mL (30.0-300.0) 10/12/20 00:55 Total Bilirubin 0.40 mg/dL (0.1-1.2) 10/12/20 00:55 AST 34 units/L (5-40) 10/12/20 00:55 ALT 15 units/L (7-56) 10/12/20 00:55 Alkaline Phosphatase 203 units/L (35-129) H 10/12/20 00:55 Ammonia 53.0 umol/L (25-60) 10/12/20 00:55 Lactate Dehydrogenase 337 units/L (91-180) H 10/12/20 00:55 Total Creatine Kinase 68 units/L (55-170) 10/12/20 00:55 Troponin T < 0.010 ng/mL (0.00-0.029) 10/12/20 08:38 C-Reactive Protein 4.20 mg/dL (0.00-1.30) H 10/12/20 00:55 Total Protein 6.2 g/dL (6.3-8.2) L 10/12/20 00:55 Albumin 2.3 g/dL (3.9-5) L 10/12/20 00:55 Albumin/Globulin Ratio 0.6 % 10/12/20 00:55 Procalcitonin 0.41 ng/mL (<0.15) 10/12/20 00:55 Microbiology: Microbiology 10/12/20 Unknown Tracheal Aspirate Sputum Culture - Preliminary 10/12/20 00:55 Peripheral/Venous Blood Culture - Preliminary Culture in Progress 10/11/20 23:20 Peripheral/Venous Blood Culture - Preliminary Culture in Progress [place]/IV: IV Catheter Type [Left INT / Saline Lock Antecubital] Active Medications - Current Medications Current Medications: Generic Name Dose Route Start Last Admin Trade Name Freq PRN Reason Stop Dose Admin Acetaminophen 650 mg 10/12/20 03:28 Tylenol PO Q4H PRN Fever >101 Dexamethasone 6 mg 10/12/20 10:00 10/12/20 10:05 Decadron IV 10/21/20 10:01 6 mg DAILY KJ Administration Dextrose 0 ml 10/12/20 03:39 D50w (25gm) Syringe IV Q30MIN PRN Hypoglycemia Protocol Famotidine 20 mg 10/12/20 10:00 10/12/20 10:05 Pepcid IV 20 mg BID KJ Administration Fentanyl 50 mcg 10/12/20 00:31 Sublimaze IV Q10MIN PRN ANALGESIA Heparin Sodium (Porcine) 5,000 unit 10/12/20 03:30 10/12/20 10:38 Heparin SUB-Q Not Given Q12HR KJ Hydrophilic Ointment 1 applic 10/12/20 00:31 Vaseline Lip Therapy TP Q2HR PRN Dry Lips Norepinephrine 4 mg in 250 mls @ 7.5 mls/hr 10/12/20 01:00 10/12/20 06:54 Levophed Drip 4 Mg/Ns 250 Ml IV 30 mcg/min TITR KJ 112.5 mls/hr Administration Protocol 2 MCG/MIN Fentanyl Citrate 2,000 mcg in 100 mls @ 4.55 mls/hr 10/12/20 01:00 10/12/20 06:41 Fentanyl Drip Premix IV 4 mcg/kg/hr TITR KJ 18.2 mls/hr Administration Protocol 1 MCG/KG/HR Epinephrine 8 mg/ Sodium 250 mls @ 3.75 mls/hr 10/12/20 01:36 10/12/20 03:00 Chloride IV 10/14/20 20:15 10 mcg/min TITR ONE 18.75 mls/hr Titration Protocol 2 MCG/MIN Dopamine HCl/Dextrose 800 mg in 250 mls @ 3.413 mls/hr 10/12/20 04:00 1 12/13/19 03:40 Intropin Drip 800 Mg/D5w 250 Ml IV 2 mcg/kg/min TITR KJ 3.413 mls/hr Administration Protocol 2 MCG/KG/MIN Sodium Chloride 1,000 mls @ 125 mls/hr 10/12/20 03:45 Nacl 0.9% 1000 Ml IV DIRECT KJ Vancomycin HCl 1,250 mg/ 275 mls @ 166.667 mls/hr 10/12/20 18:00 Sodium Chloride IV Q12H KJ Cefepime HCl 2 gm in 100 mls @ 200 mls/hr 10/12/20 09:00 10/12/20 08:37 Cefepime/Ns 2 Gm/100 Ml IV 200 mls/hr Q8HR [facility] Administration Protocol Insulin Human Regular 0 unit 10/12/20 04:00 10/12/20 10:38 Humulin R SUB-Q Not Given Q4H [facility] Protocol Multi-Ingred Cream/Lotion/Oil/Oint 1 applic 10/12/20 00:31 Artificial Tears Ophth Oint OU Q4HR PRN Dry Eye(s)
--- NOTE | 2020-10-12 16:42 | Event Note ---
Date: 10/12/20 Patient's family requested DNR/withdrawal of care and extubation Order was given for extubation and withdrawal of all care, patient was extubated nurse called and informed that patient has asystole, no cardiopulmonary activity recorded I evaluated the patient and pronounced . Time of 14;20 on 10/12/2020 Patient's family members daughter and son at the bedside
[2020-10-12] MEDS ORDERED: VANCOMYCIN 1,250 MG in SODIUM CHLORIDE 0.9% 250ML 250 ML IV SCH (18:00)
== END 2020-10-12 15:00 | DRG 871 ==
LOC: ED 22:07 → CC1 10-12 02:09
PROVIDERS: ADMIT Internal Medicine; ATTEND Internal Medicine
PROC: 0BH17EZ Insertion of Endotracheal Airway into Trachea, Via Natural or Artificial Opening (ICD-10-PCS; principal; 2020-10-12)
PROC: 5A1935Z Respiratory Ventilation, Less than 24 Consecutive Hours (ICD-10-PCS; 2020-10-12)
PROC: 05HM33Z Insertion of Infusion Device into Right Internal Jugular Vein, Percutaneous Approach (ICD-10-PCS; 2020-10-12)
PROC: 4A033R1 Measurement of Arterial Saturation, Peripheral, Percutaneous Approach (ICD-10-PCS; 2020-10-12)
PROC: 5A09357 Assistance with Respiratory Ventilation, Less than 24 Consecutive Hours, Continuous Positive Airway Pressure (ICD-10-PCS; 2020-10-12)
DX: A41.89 Other specified sepsis (principal); J96.01 Acute respiratory failure with hypoxia; R65.21 Severe sepsis with septic shock; U07.1 COVID-19; E11.9 Type 2 diabetes mellitus without complications; K21.9 Gastro-esophageal reflux disease without esophagitis; K52.9 Noninfective gastroenteritis and colitis, unspecified; Z66 Do not resuscitate; Z89.512 Acquired absence of left leg below knee; I25.2 Old myocardial infarction; Z86.73 Personal history of transient ischemic attack (TIA), and cerebral infarction without residual deficits; Z87.891 Personal history of nicotine dependence; Z90.49 Acquired absence of other specified parts of digestive tract; Z95.0 Presence of cardiac pacemaker
CPT/HCPCS: 31500; 36415; 36600; 70450; 71045; 71275; 74177; 80053; 82140; 82550; 82728; 82803; 82947; 82962; 83615; 84145; 84484; 85007; 85025; 85379; 86140; 87040; 87070; 87205; 93005; 94002; 96365; 96375; 96376; G0378; J0171; J0456; J0692; J0696; J1100; J1265; J1644; J3010; J3370; J7030; J7040; J7050; Q9967